=== PATIENT | male | born 1975 | race Caucasian/White ===

== ENCOUNTER 2023-08-22 05:44 | Inpatient (IN) | payer OTHER, SELFPAY ==
[2023-08-22] VITALS (18 sets, daily range): BP systolic 90–104; BP diastolic 59–78; PULSE 86–132; RESP 16–26; TEMP 36.4–37.1; O2SAT 95–99; BMI 38.8; BMI 37.4
--- NOTE | 2023-08-22 05:51 | XR_ITS ---
The [address] [address] Patient Name: STEFFANY JOVEL MRN: [id number] date: 1975 Sex: M Assigned Patient Location: ER Current Patient Location: ER Accession/Order Number: [id number] Exam Date: 08/22/2023 06:00 Report Date: 08/22/2023 06:26 At the request of: VASQUEZ ARRIOLA Procedure: XR chest 1V EXAMINATION: XR chest 1V HISTORY: shortness of breath COMPARISON: XR chest 05/07/2017 FINDINGS: LUNGS: No significant pulmonary parenchymal abnormalities. VASCULATURE: No increased pulmonary vasculature. PLEURA: No pneumothorax, effusion, or pleural thickening. CARDIAC: No cardiomegaly or cardiac silhouette abnormality. MEDIASTINUM: No visible mass or adenopathy. BONES: No fracture or visible bone lesion. OTHER: Negative. XR/XR chest 1V IMPRESSION: 1. No acute cardiopulmonary process. Electronically authenticated by: SALINA AGUILERA Date: 08/22/2023 06:26
--- NOTE | 2023-08-22 05:55 | ED_ITS ---
HPI - General Adult General Chief complaint: Nausea/Vomiting/Diarrhea Stated complaint: FLU TYPE ISSUES Time Seen by Provider: 08/22/23 05:45 Source: patient Mode of arrival: walk-in Limitations: no limitations History of Present Illness HPI narrative: 48-year-old male to the emergency department with chief complaint of diarrhea and vomiting. Patient reports that on he began to experience malaise, fatigue, chills, nausea. The next day he began to experience episodes of vomiting and diarrhea. He reports greater than ten episodes of diarrhea every day this weekend. He reports when he tries to drink anything it comes immediately back up. He is sipping fluids but not able to keep much down. He reports crampy abdominal pain relieved with diarrhea. Patient reports he feels very fatigued this morning. He denies any chest pain or shortness of breath. Related Data Home Medications Medication Instructions Recorded Confirmed atorvastatin 20 mg tablet 20 mg PO DAILY 08/22/23 08/22/23 azilsartan medoxomil 40 mg tablet 40 mg PO DAILY 08/22/23 08/22/23 (Edarbi) celecoxib 200 mg capsule 200 mg PO BID 08/22/23 08/22/23 fenofibrate 160 mg tablet 160 mg PO DAILY 08/22/23 08/22/23 metoprolol succinate 50 mg 50 mg PO DAILY 08/22/23 08/22/23 tablet,extended release 24 hr omeprazole 20 mg capsule,delayed 20 mg PO DAILY 08/22/23 08/22/23 release oxybutynin chloride 5 mg tablet 5 mg PO DAILY 08/22/23 08/22/23 Allergies Allergy/AdvReac Type Severity Reaction Status Date / Time No Known Drug Allergies Allergy Verified 08/22/23 05:50 Review of Systems ROS Status of ROS 10 or more systems reviewed and unremark able except as noted in history and below Exam Narrative Exam Narrative: VITALS: I have reviewed the triage vital signs. GENERAL: Well developed, well appearing adult male in no acute distress. NEURO: Alert and oriented. Moves all extremities. Face is symmetric and expre ssive. EYES: PERRL. No scleral icterus or conjunctival injection. No discharge. HENT: Normocephalic, atraumatic. Hearing is grossly intact. Nares grossly patent and without discharge. Mucous membranes moist. NECK: No JVD. Patient moves neck without restriction. CARDIO: Rhythm regular. Normal rate. No murmur, rub, or gallop. Pulses equal bilaterally in the upper and lower extremity. No lower extremity edema. PULM: Lungs clear to auscultation in all solorio. No wheezes, rales, or rhonchi. No conversational dyspnea. No splinting, stridor, or accessory muscle use. GI/: Abdomen is soft and non-tender. Normoactive bowel sounds. EXTREMITIES: Symmetric muscle bulk. No joint swelling. No clubbing, cyanosis, or deformity. SKIN: Warm and dry. Normal turgor. No rash or lesions appreciated. PSYCH: Mood, affect, and interaction is appropriate to the setting. Constitutional Vital Signs, click to edit/add: Last Vital Signs Temp 97.7 F 08/22/23 05:46 Pulse 132 H 08/22/23 05:46 Resp 26 H 08/22/23 05:46 BP 92/78 08/22/23 05:46 Pulse Ox 96 08/22/23 05:46 O2 Del Method Room Air 08/22/23 05:46 Course Vital Signs Vital signs: Vital Signs Temperature 97.7 F 08/22/23 05:46 Pulse Rate 132 H 08/22/23 05:46 Respiratory Rate 26 H 08/22/23 05:46 Blood Pressure 92/78 08/22/23 05:46 Pulse Oximetry 96 08/22/23 05:46 Oxygen Delivery Method Room Air 08/22/23 05:46 Temperature 97.7 F 08/22/23 05:46 Pulse Rate 132 H 08/22/23 05:46 Respiratory Rate 26 H 08/22/23 05:46 Blood Pressure 92/78 08/22/23 05:46 Pulse Oximetry 96 08/22/23 05:46 Oxygen Delivery Method Room Air 08/22/23 05:46 Medical Decision Making [facility] Narrative Medical decision making narrative: 48-year-old male to the emergency department complaining of diarrhea and vomiting. Tachycardic and soft pressure. The patient is afebrile. Abdominal examination is benign. Fluids, Bentyl, Zofran ordered for symptom control. Basic labs are ordered. Patient agrees with this plan. CBC is without significant abnormalities. Chemistry with significantly elevated creatinine representing acute kidney injury for this patient. He has a metabolic acidosis. He has a mild hyperkalemia without EKG changes. CT scan is ordered to rule out obstructive uropathy. 2 L of fluids were ordered for the patient. Care was signed out to Dr. Lara. Medical Records Medical records reviewed: Yes I reviewed the patient's medical records Lab Data Lab results reviewed: Yes I reviewed the patient's lab results Labs: Lab Results 08/22/23 Range/Units 05:57 WBC 10.2 (4.0-11.0) 10^3/uL RBC 5.20 (4.70-6.10) 10^6/uL Hgb 16.2 (14.0-18.0) g/dL Hct 49.9 (42.0-54.0) % MCV 96.0 H (80.0-94.0) fL MCH 31.2 (25.9-34.0) pg MCHC 32.5 (29.9-35.2) g/dL RDW 13.7 (11.0-15.0) % Plt Count 367 (150-450) 10^3/uL MPV 9.5 (9.5-13.5) fL Neut % (Auto) 66.2 (43.0-75.0) % Lymph % (Auto) 18.8 L (20.5-60.0) % [place] % (Auto) 13.2 H (1.7-12.0) % Eos % (Auto) 1.2 (0.9-7.0) % Baso % (Auto) 0.2 (0.2-2.0) % Neut # (Auto) 6.7 H (1.4-6.5) 10^3/uL Lymph # (Auto) 1.9 (1.2-3.8) 10^3/uL [place] # (Auto) 1.3 H (0.3-0.8) 10^3/uL Eos # (Auto) 0.1 (0.0-0.7) 10^3/uL Baso # (Auto) 0.0 (0.0-0.1) 10^3/uL Abs Immat Gran (auto) 0.04 H (0.00-0.03) 10^3/uL Imm/Tot Granulo (auto) 0.4 (0.0-0.5) % Sodium 137 (136-145) mmol/L Potassium 5.8 H (3.5-5.1) mmol/L Chloride 103 (98-107) mmol/L Carbon Dioxide 15.0 L (21.0-32.0) mmol/L Anion Gap 24.8 BUN 66.0 H (7.0-18.0) mg/dL Creatinine 4.23 H (0.70-1.30) mg/dL Est GFR ( Amer) 18 L (>=60) Est GFR (Non-Af Amer) 15 L (>=60) BUN/Creatinine Ratio 15.6 Glucose 144 H (74-106) mg/dL Calcium 9.2 (8.5-10.1) mg/dL Total Bilirubin 0.6 (0.2-1.0) mg/dL AST 25 (15-37) U/L ALT 38 (16-63) U/L Alkaline Phosphatase 49 (46-116) U/L Total Protein 8.7 H (6.4-8.2) g/dL Albumin 4.3 (3.4-5.0) g/dL Globulin 4.4 g/dL Albumin/Globulin Ratio 1.0 Lipase 78.0 H (16.0-77.0) U/L ECG Data Attestation: I personally reviewed and interpreted this ECG as follows: (ST@117. No STEMI. Short QTC. ) Critical Care Time Critical Care Time Critical Care Time: Yes Total Critical Care Time: 32 Attestation: Critical Care Procedure Note Authorized and Performed by: Naresh David DO Total critical care time: 32 min Due to a high probability of clinically significant, life threatening deterioration, the patient required my highest level of preparedness to intervene emergently and I personally spent this critical care time directly and personally managing the patient. This critical care time included obtaining a history; examining the patient; pulse oximetry; ordering and review of studies; arranging urgent treatment with development of a management plan; evaluation of patient's response to treatment; frequent reassessment; and, discussions with other providers. This critical care time was performed to assess and manage the high probability of imminent, life-threatening deterioration that could result in multi-organ failure. It was exclusive of separately billable procedures and treating other patients and teaching time. Please see MDM section and the rest of the note for further information on patient assessment and treatment. Discharge Plan Discharge Chief Complaint: Nausea/Vomiting/Diarrhea Clinical Impression: Acute renal failure, Gastroenteritis Patient Disposition: Still a Patient Prescriptions / Home Meds: No Action atorvastatin 20 mg tablet 20 mg PO DAILY Edarbi 40 mg tablet 40 mg PO DAILY celecoxib 200 mg capsule 200 mg PO BID fenofibrate 160 mg tablet 160 mg PO DAILY metoprolol succinate 50 mg tablet extended release 24 hr 50 mg PO DAILY oxybutynin chloride 5 mg tablet 5 mg PO DAILY omeprazole 20 mg capsule,delayed release(DR/EC) 20 mg PO DAILY Referrals: OSMAR MANCINI [Primary Care Provider] - 1 week
--- NOTE | 2023-08-22 05:58 | ECG_ITS ---
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
[2023-08-22 06:01] LABS: Basophils Percent Auto 0.2 % (0.2-2.0); Eosinophils Absolute Auto 0.1 10^3/uL (0.0-0.7); Eosinophils Percent Auto 1.2 % (0.9-7.0); Hematocrit 49.9 % (42.0-54.0); Hemoglobin 16.2 g/dL (14.0-18.0); Immature Granulocytes Abs Auto 0.04 10^3/uL (0.00-0.03); Immature Granulocytes Pct Auto 0.4 % (0.0-0.5); Lymphocytes Absolute Auto 1.9 10^3/uL (1.2-3.8); Lymphocytes Percent Auto 18.8 % (20.5-60.0); Mean Corpuscular HGB Conc 32.5 g/dL (29.9-35.2); Mean Corpuscular Hemoglobin 31.2 pg (25.9-34.0); Mean Platelet Volume 9.5 fL (9.5-13.5); Monocytes Absolute Auto 1.3 10^3/uL (0.3-0.8); Monocytes Percent Auto 13.2 % (1.7-12.0); Neutrophils Absolute Auto 6.7 10^3/uL (1.4-6.5); Neutrophils Percent Auto 66.2 % (43.0-75.0); Platelet Count 367 10^3/uL (150-450); Red Cell Distribution Width 13.7 % (11.0-15.0); White Blood Count 10.2 10^3/uL (4.0-11.0)
[2023-08-22 06:18] LABS: Alanine Aminotransferase 38 U/L (16-63); Albumin Level 4.3 g/dL (3.4-5.0); Alkaline Phosphatase 49 U/L (46-116); Anion Gap 24.8; Aspartate Amino Transferase 25 U/L (15-37); BUN Creatinine Ratio 15.6; Bilirubin Total 0.6 mg/dL (0.2-1.0); Calcium 9.2 mg/dL (8.5-10.1); Chloride 103 mmol/L (98-107); Estimated GFR (African America 18 (>=60); Estimated GFR (Non-African Ame 15 (>=60); Globulin 4.4 g/dL; Glucose 144 mg/dL (74-106); Potassium 5.8 mmol/L (3.5-5.1); Sodium 137 mmol/L (136-145); Total Protein 8.7 g/dL (6.4-8.2)
--- NOTE | 2023-08-22 06:26 | CT_ITS ---
[address] [address] Patient Name: STEFFANY JOVEL MRN: [id number] date: 1975 Sex: M Assigned Patient Location: ED.MAIN Current Patient Location: ED.MAIN Accession/Order Number: [id number] Exam Date: 08/22/2023 06:40 Report Date: 08/22/2023 07:06 At the request of: VASQUEZ ARRIOLA Procedure: CT abdomen pelvis wo con EXAMINATION: CT abdomen pelvis wo con HISTORY: abd pain , diarrhea, vomiting, shortness of breath COMPARISON: No relevant comparison available. TECHNIQUE: Axial, Coronal, and Sagittal images were obtained without and/or with IV contrast as indicated by examination type. Dose reduction techniques were achieved by using automated exposure control and/or adjustment of mA and/or kV according to patient size and/or use of iterative reconstruction technique. FINDINGS: LUNG BASES: No visible pulmonary or pleural disease. LIVER: No enlargement, atrophy, suspicious density, or significant focal lesion. BILIARY: 1.7 cm stone within noninflamed gallbladder. PANCREAS: No lesion, fluid collection, or abnormal duct dilatation. SPLEEN: No enlargement or focal lesion. ADRENALS: No mass or enlargement. KIDNEYS: 4 mm nonobstructing stone within right kidney inferior pole. BOWEL/MESENTERY: No visible mass, obstruction, or bowel wall thickening. Normal appendix. A few small diverticula involving the distal colon without inflammatory changes. AORTA/VASCULAR: No aneurysm or dissection. RETROPERITONEUM: No mass or adenopathy. LYMPH NODES: No adenopathy. URINARY BLADDER: Completely empty. No visible focal wall thickening, lesion, or calculus. PELVIC ORGANS: No visible mass. Pelvic organs appropriate for patient age. ABDOMINAL WALL: No mass or hernia. 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 OTHER: Negative. CT/CT abdomen pelvis wo con IMPRESSION: 1. No acute or suspicious findings to account for patient's symptoms. 2. Cholelithiasis. 3. Nonobstructing right nephrolithiasis. 4. Mild colonic diverticulosis. 5. Osteonecrosis of right femoral head. No prior studies for comparison. Electronically authenticated by: SALINA AGUILERA Date: 08/22/2023 07:06
[2023-08-22] MEDS: ONDANSETRON PF 4 MG/2 ML VIAL IV (06:29)
[2023-08-22] MEDS: DICYCLOMINE HCL 20 MG/2 ML VIAL IM (06:29)
[2023-08-22] MEDS: 0.9 % SODIUM CHLORIDE 1,000 ML 999 ML IV (06:29)
[2023-08-22 06:43] LABS: Magnesium 1.5 mg/dL (1.8-2.4); Phosphorus 3.3 mg/dL (2.6-4.7)
[2023-08-22] MEDS: LACTATED RINGER'S SOLUTION 1,000 ML 1000 ML IV (07:17)
[2023-08-22 07:34] LABS: Adenovirus NOT DETECTED (NOT DETECTE); Bordetella parapertussis NOT DETECTED (NOT DETECTE); Coronavirus 229E NOT DETECTED (NOT DETECTE); Coronavirus HKU1 NOT DETECTED (NOT DETECTE); Coronavirus NL63 NOT DETECTED (NOT DETECTE); Coronavirus OC43 NOT DETECTED (NOT DETECTE); Human Metapneumovirus NOT DETECTED (NOT DETECTE); Influenza A NOT DETECTED (NOT DETECTE); Influenza B NOT DETECTED (NOT DETECTE); Mycoplasma pneumoniae NOT DETECTED (NOT DETECTE); Parainfluenza Virus 1 NOT DETECTED (NOT DETECTE); Parainfluenza Virus 2 NOT DETECTED (NOT DETECTE); Parainfluenza Virus 3 NOT DETECTED (NOT DETECTE); Parainfluenza Virus 4 NOT DETECTED (NOT DETECTE); Respiratory Syncytial Virus NOT DETECTED (NOT DETECTE); SARS-CoV-2 NOT DETECTED (NOT DETECTE)
[2023-08-22 08:25] LABS: Human Rhinovirus/Enterovirus DETECTED (NOT DETECTE)
[2023-08-22 08:26] LABS: Bilirubin Urine SMALL (NEGATIVE); Blood Urine NEGATIVE (NEGATIVE); Clarity Urine CLEAR (CLEAR); Color Urine DK. ORANGE (YELLOW); Glucose Urine UA NEGATIVE (NEGATIVE); Ketones Urine 15 mg/dL (NEGATIVE); Leukocyte Esterase Urine NEGATIVE (NEGATIVE); Nitrite Urine NEGATIVE (NEGATIVE); Protein Urine 100 mg/dL (NEG/TRACE); Specific Gravity Urine >=1.030 (1.005-1.025); Urobilinogen Urine 0.2 EU/dL (0.2-1.0)
[2023-08-22 08:57] LABS: Bacteria Urine MODERATE #/HPF (NONE SEEN); Mucus Urine NONE SEEN (NONE SEEN); RBC Urine NONE SEEN #/HPF (0-2)
[2023-08-22 08:58] LABS: Calcium Oxalate Crystals Urine MODERATE; Crystals Seen? Seen #/HPF (None Seen); Squamous Epithelial Cell Urine MODERATE #/LPF (NONE/RARE); Uric Acid Crystals Urine MODERATE
[2023-08-22 08:59] LABS: Cast Seen? SEEN #/LPF (NONE SEEN); Hyaline Casts Urine MANY
[2023-08-22 09:00] LABS: Anion Gap 15.5; BUN Creatinine Ratio 17.6; Calcium 8.2 mg/dL (8.5-10.1); Carbon Dioxide 22.4 mmol/L (21.0-32.0); Chloride 106 mmol/L (98-107); Estimated GFR (African America 22 (>=60); Estimated GFR (Non-African Ame 18 (>=60); Glucose 110 mg/dL (74-106); Potassium 5.9 mmol/L (3.5-5.1); Sodium 138 mmol/L (136-145)
[2023-08-22 09:00] LABS: WBC Urine 0-2 #/HPF (NONE SEEN)
--- NOTE | 2023-08-22 09:09 | ED.GENADUL1 ---
HPI - General Adult General Chief complaint: Nausea/Vomiting/Diarrhea Stated complaint: FLU TYPE ISSUES Time Seen by Provider: 08/22/23 05:45 Source: patient Mode of arrival: walk-in Limitations: no limitations History of Present Illness HPI narrative: The patient was initially seen by Dr. David and signed out to me after discussing the case with him thoroughly. Please see his full history and physical. Related Data Home Medications Medication Instructions Recorded Confirmed atorvastatin 20 mg tablet 20 mg PO DAILY 08/22/23 08/22/23 azilsartan medoxomil 40 mg tablet 40 mg PO DAILY 08/22/23 08/22/23 (Edarbi) celecoxib 200 mg capsule 200 mg PO BID 08/22/23 08/22/23 fenofibrate 160 mg tablet 160 mg PO DAILY 08/22/23 08/22/23 metoprolol succinate 50 mg 50 mg PO DAILY 08/22/23 08/22/23 tablet,extended release 24 hr omeprazole 20 mg capsule,delayed 20 mg PO DAILY 08/22/23 08/22/23 release oxybutynin chloride 5 mg tablet 5 mg PO DAILY 08/22/23 08/22/23 Allergies Allergy/AdvReac Type Severity Reaction Status Date / Time No Known Drug Allergies Allergy Verified 08/22/23 05:50 Exam Constitutional Vital Signs, click to edit/add: Last Vital Signs Temp 97.7 F 08/22/23 05:46 Pulse 112 H 08/22/23 06:38 Resp 20 08/22/23 06:38 BP 90/70 08/22/23 06:38 Pulse Ox 99 08/22/23 06:38 O2 Del Method Room Air 08/22/23 05:46 Course Vital Signs Vital signs: Vital Signs Temperature 97.7 F 08/22/23 05:46 Pulse Rate 132 H 08/22/23 05:46 Respiratory Rate 26 H 08/22/23 05:46 Blood Pressure 92/78 08/22/23 05:46 Pulse Oximetry 96 08/22/23 05:46 Oxygen Delivery Method Room Air 08/22/23 05:46 Temperature 97.7 F 08/22/23 05:46 Pulse Rate 112 H 08/22/23 06:38 Respiratory Rate 20 08/22/23 06:38 Blood Pressure 90/70 08/22/23 06:38 Pulse Oximetry 99 08/22/23 06:38 Oxygen Delivery Method Room Air 08/22/23 05:46 Medical Decision Making MDM Narrative Medical decision making narrative: The patient was found to be significantly dehydrated and hypokalemic. He was given IV fluids and his creatinine is coming down. He was given D50 and insulin for the persistent hyperkalemia. He is being admitted. Findings are discussed with the patient. Differential Diagnosis Differential Diagnosis: Diarrhea, dehydration, acute kidney injury Lab Data Lab results reviewed: Yes I reviewed the patient's lab results Labs: Lab Results 08/22/23 08/22/23 08/22/23 Range/Units 05:57 07:08 07:49 WBC 10.2 (4.0-11.0) 10^3/uL RBC 5.20 (4.70-6.10) 10^6/uL Hgb 16.2 (14.0-18.0) g/dL Hct 49.9 (42.0-54.0) % MCV 96.0 H (80.0-94.0) fL MCH 31.2 (25.9-34.0) pg MCHC 32.5 (29.9-35.2) g/dL RDW 13.7 (11.0-15.0) % Plt Count 367 (150-450) 10^3/uL MPV 9.5 (9.5-13.5) fL Neut % (Auto) 66.2 (43.0-75.0) % Lymph % (Auto) 18.8 L (20.5-60.0) % [place] % (Auto) 13.2 H (1.7-12.0) % Eos % (Auto) 1.2 (0.9-7.0) % Baso % (Auto) 0.2 (0.2-2.0) % Neut # (Auto) 6.7 H (1.4-6.5) 10^3/uL Lymph # (Auto) 1.9 (1.2-3.8) 10^3/uL [place] # (Auto) 1.3 H (0.3-0.8) 10^3/uL Eos # (Auto) 0.1 (0.0-0.7) 10^3/uL Baso # (Auto) 0.0 (0.0-0.1) 10^3/uL Abs Immat Gran (auto) 0.04 H (0.00-0.03) 10^3/uL Imm/Tot Granulo (auto) 0.4 (0.0-0.5) % Sodium 137 (136-145) mmol/L Potassium 5.8 H (3.5-5.1) mmol/L Chloride 103 (98-107) mmol/L Carbon Dioxide 15.0 L (21.0-32.0) mmol/L Anion Gap 24.8 BUN 66.0 H (7.0-18.0) mg/dL Creatinine 4.23 H (0.70-1.30) mg/dL Est GFR ( Amer) 18 L (>=60) Est GFR (Non-Af Amer) 15 L (>=60) BUN/Creatinine Ratio 15.6 Glucose 144 H (74-106) mg/dL Calcium 9.2 (8.5-10.1) mg/dL Phosphorus 3.3 (2.6-4.7) mg/dL Magnesium 1.5 L (1.8-2.4) mg/dL Total Bilirubin 0.6 (0.2-1.0) mg/dL AST 25 (15-37) U/L ALT 38 (16-63) U/L Alkaline Phosphatase 49 (46-116) U/L Total Protein 8.7 H (6.4-8.2) g/dL Albumin 4.3 (3.4-5.0) g/dL Globulin 4.4 g/dL Albumin/Globulin Ratio 1.0 Lipase 78.0 H (16.0-77.0) U/L Urine Color Dk. orange (YELLOW) Urine Clarity Clear (CLEAR) Urine pH 5.0 (5.0-9.0) Ur Specific [place] >=1.030 A (1.005-1.025) Urine Protein 100 A (NEG/TRACE) mg/dL Urine Glucose (UA) Negative (NEGATIVE) mg/dL Urine Ketones 15 A (NEGATIVE) mg/dL Urine Occult Blood Negative (NEGATIVE) Urine Nitrite Negative (NEGATIVE) Urine Bilirubin Small A (NEGATIVE) Urine Urobilinogen 0.2 (0.2-1.0) EU/dL Ur Leukocyte Esterase Negative (NEGATIVE) Urine RBC None seen (0-2) #/HPF Urine WBC 0-2 A (NONE SEEN) #/HPF Ur Squamous Epith Cells Moderate A (NONE/RARE) #/LPF Urine Crystals Seen A (None Seen) #/HPF Calcium Oxalate Crystal Moderate Uric Acid Crystals Moderate Urine Bacteria Moderate A (NONE SEEN) #/HPF Urine Casts Seen A (NONE SEEN) #/LPF Hyaline Casts Many Urine Mucus None seen (NONE SEEN) Adenovirus (PCR) Not detected (NOT DETECTE) C. pneumoniae DNA (PCR) Not detected (NOT DETECTE) Coronavirus Type OC43 Not detected (NOT DETECTE) Coronavirus Type HKU1 Not detected (NOT DETECTE) Coronavirus Type 229E Not detected (NOT DETECTE) Coronavirus Type NL63 Not detected (NOT DETECTE) Human Metapneumovir PCR Not detected (NOT DETECTE) M. pneumoniae (PCR) Not detected (NOT DETECTE) Parainfluenza PCR Not detected (NOT DETECTE) Parainfluenza 2 (PCR) Not detected (NOT DETECTE) Parainfluenza 3 (PCR) Not detected (NOT DETECTE) Parainfluenza 4 (PCR) Not detected (NOT DETECTE) RSV (RT-PCR) Not detected (NOT DETECTE) Entero/Rhino (PCR) Detected A (NOT DETECTE) SARS-CoV-2 (PCR) Not detected (NOT DETECTE) Bordetella pertussis (PCR) Not detected (NOT DETECTE) B parapertussis DNA PCR Not detected (NOT DETECTE) Influenza Type A (PCR) Not detected (NOT DETECTE) Influenza Type B (PCR) Not detected (NOT DETECTE) 08/22/23 Range/Units 08:27 WBC (4.0-11.0) 10^3/uL RBC (4.70-6.10) 10^6/uL Hgb (14.0-18.0) g/dL Hct (42.0-54.0) % MCV (80.0-94.0) fL MCH (25.9-34.0) pg MCHC (29.9-35.2) g/dL RDW (11.0-15.0) % Plt Count (150-450) 10^3/uL MPV (9.5-13.5) fL Neut % (Auto) (43.0-75.0) % Lymph % (Auto) (20.5-60.0) % [place] % (Auto) (1.7-12.0) % Eos % (Auto) (0.9-7.0) % Baso % (Auto) (0.2-2.0) % Neut # (Auto) (1.4-6.5) 10^3/uL Lymph # (Auto) (1.2-3.8) 10^3/uL [place] # (Auto) (0.3-0.8) 10^3/uL Eos # (Auto) (0.0-0.7) 10^3/uL Baso # (Auto) (0.0-0.1) 10^3/uL Abs Immat Gran (auto) (0.00-0.03) 10^3/uL Imm/Tot Granulo (auto) (0.0-0.5) % Sodium 138 (136-145) mmol/L Potassium 5.9 H (3.5-5.1) mmol/L Chloride 106 (98-107) mmol/L Carbon Dioxide 22.4 (21.0-32.0) mmol/L Anion Gap 15.5 BUN 64.0 H (7.0-18.0) mg/dL Creatinine 3.64 H (0.70-1.30) mg/dL Est GFR ( Amer) 22 L (>=60) Est GFR (Non-Af Amer) 18 L (>=60) BUN/Creatinine Ratio 17.6 Glucose 110 H (74-106) mg/dL Calcium 8.2 L (8.5-10.1) mg/dL Phosphorus (2.6-4.7) mg/dL Magnesium (1.8-2.4) mg/dL Total Bilirubin (0.2-1.0) mg/dL AST (15-37) U/L ALT (16-63) U/L Alkaline Phosphatase (46-116) U/L Total Protein (6.4-8.2) g/dL Albumin (3.4-5.0) g/dL Globulin g/dL Albumin/Globulin Ratio Lipase (16.0-77.0) U/L Urine Color (YELLOW) Urine Clarity (CLEAR) Urine pH (5.0-9.0) Ur Specific [place] (1.005-1.025) Urine Protein (NEG/TRACE) mg/dL Urine Glucose (UA) (NEGATIVE) mg/dL Urine Ketones (NEGATIVE) mg/dL Urine Occult Blood (NEGATIVE) Urine Nitrite (NEGATIVE) Urine Bilirubin (NEGATIVE) Urine Urobilinogen (0.2-1.0) EU/dL Ur Leukocyte Esterase (NEGATIVE) Urine RBC (0-2) #/HPF Urine WBC (NONE SEEN) #/HPF Ur Squamous Epith Cells (NONE/RARE) #/LPF Urine Crystals (None Seen) #/HPF Calcium Oxalate Crystal Uric Acid Crystals Urine Bacteria (NONE SEEN) #/HPF Urine Casts (NONE SEEN) #/LPF Hyaline Casts Urine Mucus (NONE SEEN) Adenovirus (PCR) (NOT DETECTE) C. pneumoniae DNA (PCR) (NOT DETECTE) Coronavirus Type OC43 (NOT DETECTE) Coronavirus Type HKU1 (NOT DETECTE) Coronavirus Type 229E (NOT DETECTE) Coronavirus Type NL63 (NOT DETECTE) Human Metapneumovir PCR (NOT DETECTE) M. pneumoniae (PCR) (NOT DETECTE) Parainfluenza PCR (NOT DETECTE) Parainfluenza 2 (PCR) (NOT DETECTE) Parainfluenza 3 (PCR) (NOT DETECTE) Parainfluenza 4 (PCR) (NOT DETECTE) RSV (RT-PCR) (NOT DETECTE) Entero/Rhino (PCR) (NOT DETECTE) SARS-CoV-2 (PCR) (NOT DETECTE) Bordetella pertussis (PCR) (NOT DETECTE) B parapertussis DNA PCR (NOT DETECTE) Influenza Type A (PCR) (NOT DETECTE) Influenza Type B (PCR) (NOT DETECTE) Imaging Data CT scan - abdomen: Radiologist's impression: ITS Impressions Chest X-Ray 08/22/23 05:51 IMPRESSION: 1. No acute cardiopulmonary process. Electronically authenticated by: SALINA AGUILERA Date: 08/22/2023 06:26 Abdomen/Pelvis CT 08/22/23 06:26 IMPRESSION: 1. No acute or suspicious findings to account for patient's symptoms. 2. Cholelithiasis. 3. Nonobstructing right nephrolithiasis. 4. Mild colonic diverticulosis. 5. Osteonecrosis of right femoral head. No prior studies for comparison. Electronically authenticated by: SALINA AGUILERA Date: 08/22/2023 07:06 Critical Care Time Critical Care Time Critical Care Time: Yes Total Critical Care Time: 40 Attestation: Due to the high probability of sudden and clinically significant deterioration in the patient's condition he/she required the highest level of my preparedness to intervene urgently I provided critical care time including documentation time, medication orders and management, reevaluation, vital sign assessment, ordering and reviewing of lab tests, ordering and reviewing of x-ray studies, and admission orders. Aggregate critical care time is 40 minutes including only time during which I was engaged in work directly related to his/her care and did not include time spent treating other patients simultaneously. Discharge Plan Discharge Chief Complaint: Nausea/Vomiting/Diarrhea Clinical Impression: Acute renal failure, Gastroenteritis, Hyperkalemia Patient Disposition: Admitted As Inpatient Time of Disposition Decision: 09:08 Condition: Good
[2023-08-22] MEDS: INSULIN REGULAR 300 UNITS/3 ML 10 UNIT IV (09:25)
[2023-08-22] MEDS: DEXTROSE 50 %-WATER 25 GM/50 ML SYRINGE IV (09:25)
[2023-08-22] MEDS: ENOXAPARIN SODIUM 30 MG/0.3 ML SYRINGE SUBQ (10:49)
[2023-08-22] MEDS: FENOFIBRATE 54 MG TABLET 162 MG PO (10:49)
[2023-08-22] MEDS: LACTATED RINGER'S SOLUTION 1,000 ML 125 ML IV ×2 (10:49→18:02)
--- NOTE | 2023-08-22 13:14 | P.HP_ITS ---
<Statement entered by Shaikh Aaron MD - 08/22/23 16:40> This documentation has been reviewed and approved. Patient seen and examined. Case discussed with Ruthy. Patient presents with nausea, vomiting and diarrhea - 3-4 days. Found to have severe MIK along with multiple electrolyte abnormalities. Patient admitted for IVF and monitor electrolytes, renal function. He also tested positive for rhinovirus. He reports sinus congestion and headache prior to his symptoms started. Exam: NAD, Obese CTA b/l, normal RR Normal HR, no murmurs NT, ND, BS+ve Assessment and Plan MIK Hyperkalemia HLD HTN Orthostatic hypotension Acute viral Gastroenteritis Cholelithiasis. -c/w IVF, Hold BP meds. Monitor UO, daily I/O. Recheck BMP. -Incidental finding of cholelithiasis - will need outpatient follow up GI panel sent. No sig pathology noted on CT ABD/PELVIS. HPI H&P: HPI History of Present Illness Chief complaint: FLU TYPE ISSUES Narrative: 08/22/23 4147 This is a 48-year-old male patient with a past medical history as outlined below including hyperlipidemia, hypertension, GERD, obesity, and borderline diabetes; who presented to the ED early this morning complaining of severe weakness, dehydration, and persistent vomiting and diarrhea. The patient reports onset of headache and diarrhea Tuesday evening (3 days ago), which he reports as very frequent with multiple episodes. On Tuesday the diarrhea started to improve and then resumed again Tuesday afternoon. On Tuesday evening the patient began to experience vomiting with episodes every 30 to 60 minutes. The patient was attempting to maintain his hydration, but he could not keep water down and presented to the ED early this morning for further evaluation. He denies any fevers or chills. He reports weakness, body aches, and oliguria prior to arrival in the ED. He denies any sick contacts. Workup in the ED revealed significant kidney injury (BUN 66, CR 4.23, GFR 15), hyperkalemia (5.8), and hyperglycemia (144). A chest x-ray was unremarkable and a CT of the abdomen showed no acute disease or etiology for the patient's symptoms. A respiratory panel was positive for rhinovirus, but the patient denies any URI symptoms. The patient is being admitted to the hospitalist service as an inpatient for acute kidney injury, dehydration, hyperkalemia, and associated hypotension. At the time of my exam the patient is resting comfortably on his bed on the medical floor. He just finished eating a breakfast of omelette and toast and was able to finish it all without further episodes of emesis. On further discussion of the patient's symptoms and when they started, it was noted that the patient took his first dose of Wegovy on 08/14/2023. He began to develop GI symptoms on 08/19/2023. Although this is a 5-day delay since initiation of this medication, after discussion with the pharmacist, it is highly possible that the Wegovy is responsible for his symptoms. As this medication is extended release and very long-acting it is likely that a 5-day lag for onset of adverse events i s reasonable to expect. Unfortunately, the patient took his second dose of Wegovy on 08/21/2023, just prior to presenting to the ED for further evaluation. If his symptoms are related to this medication he will likely have a recurrent episode next weekend. I discussed this with the patient and he verbalized understanding. Opioid HPI Opioid Management Most Recent Opioid Data: Last Pain Assessment 08/22/23 14:00 Last ORT Total Score 0 08/22/23 09:09 Last ORT Risk Category Low Risk 08/22/23 09:09 Review of Systems ROS Status of ROS 10 or more systems reviewed and unremark able except as noted in history and below [facility] Medical History (Updated 08/22/23 @ 13:52 by Ruthy Hartmann NP) GERD (gastroesophageal reflux disease) ?K21.9 - Gastro-esophageal reflux disease without esophagitis (ICD-10) OAB (overactive bladder) ?N32.81 - Overactive bladder (ICD-10) Hyperlipidemia ?E78.5 - Hyperlipidemia, unspecified (ICD-10) Prediabetes ?R73.03 - Prediabetes (ICD-10) HTN (hypertension) ?I10 - Essential (primary) hypertension (ICD-10) Cholelithiasis ?K80.20 - Calculus of gallbladder without cholecystitis without obstruction (ICD-10) Degenerative disc disease, lumbar ?M51.36 - Other intervertebral disc degeneration, lumbar region (ICD-10) Surgical History (Updated 08/22/23 @ 09:52 by Raegan Lopez) History of hip replacement ?Z96.649 - Presence of unspecified artificial hip joint (ICD-10) Family History (Updated 08/22/23 @ 09:55 by Raegan Lopez) Father Family history of CHF (congestive heart failure) Family history of COPD (chronic obstructive pulmonary disease) Family history of hypertension Family history of stroke Grandfather Family history of cancer Family history of hypertension Grandfather Family history of cancer Brother Family history of diabetes mellitus Family history of hypertension Social History (Updated 08/22/23 @ 09:54 by Raegan Lopez) Within the past year, how often did you have a drink containing alcohol: 2-4 times a month Within the past year, how many standard drinks containing alcohol did you have on a typical day: 1 or 2 Within the past year, how often did you have six or more drinks on one occasion: never Total score: 0 Score interpretation: A score less than 4 is consistent with normal alcohol consumption. Smoking status: Current every day smoker Do you use any of these nicotine containing products: vaping products Non-prescribed substance use: denies use Previous occupational history: [employer] Highest level of school completed/degree received: Associate degree: occupational, technical, vocational program Little interest or pleasure in doing things: not at all Feeling down, depressed, or hopeless: not at all Feel stressed/tense/nervous/anxious/difficulty sleeping: not at all Meds Home Medications and Allergies Home Medications Medication Instructions Recorded Confirmed Type Wegovy 0.3 mg subcut QWEEK 08/22/23 08/22/23 History atorvastatin 20 mg tablet 20 mg PO DAILY 08/22/23 08/22/23 History azilsartan medoxomil 40 mg tablet 40 mg PO DAILY 08/22/23 08/22/23 History (Edarbi) celecoxib 200 mg capsule 200 mg PO BID 08/22/23 08/22/23 History fenofibrate 160 mg tablet 160 mg PO DAILY 08/22/23 08/22/23 History metoprolol succinate 50 mg 50 mg PO DAILY 08/22/23 08/22/23 History tablet,extended release 24 hr omeprazole 20 mg capsule,delayed 20 mg PO DAILY 08/22/23 08/22/23 History release oxybutynin chloride 5 mg tablet 5 mg PO DAILY 08/22/23 08/22/23 History Allergies Allergy/AdvReac Type Severity Reaction Status Date / Time No Known Drug Allergies Allergy Verified 08/22/23 05:50 Exam Constitutional Vital Signs, click to edit/add: Last Vital Signs Temp 97.6 F 08/22/23 09:46 Pulse 100 H 08/22/23 11:53 Resp 16 08/22/23 09:46 BP 102/68 08/22/23 09:46 Pulse Ox 96 08/22/23 09:46 O2 Del Method Room Air 08/22/23 09:46 Common normals: no apparent distress, oriented x3, alert and well nourished General appearance: cooperative Orientation/consciousness: Yes awake HENMT Common normals: normocephalic, head/scalp atraumatic, hearing grossly normal bilaterally, external nose normal and moist oral mucous membranes Eye Common normals: PERRL, EOMs intact bilaterally, conjunctivae normal and no scleral icterus Alignment: alignment normal Eyelid: eyelids normal Chest Common normals: inspection of chest normal Chest: symmetrical chest wall rise Respiratory Common normals: normal respiratory effort, no retractions, no use of accessory muscles and clear to auscultation bilaterally Effort & inspection: able to speak in complete sentences Auscultation: diminished lung sounds (BLL) Cardio Common normals: no JVD, regular rate, regular rhythm, S1 normal heart sound, S2 normal heart sound, no gallops, no clicks, no murmurs, no rub and peripheral pulses 2+ throughout GI Common normals: Normal to inspection, nondistended, normoactive bowel sounds present, soft to palpation, non-tender, no hepatosplenomegaly, no masses and no bruits Bladder/kidney exam: bladder normal to palpation Back & Pelvis Common normals: thoracic and lumbar spine normal to inspection Extremity Common normals: normal capillary refill General: normal exam except as noted and edema (Tr bilat insteps); no clubbing and no cyanosis Neuro Jyoti Coma Scale: GCS not evaluated Common normals: oriented x3, CN's II-XII intact bilaterally, moves all extremities, no focal motor deficits and no sensory deficits noted Sensorium/orientation: awake and alert Speech: speech normal Motor exam: strength 5/5 throughout Psych Common normals: mental status grossly normal, thought process normal, affect normal and activity/motor behavior normal Results Labs Labs: Short CBC 08/22/23 Range/Units 05:57 WBC 10.2 (4.0-11.0) 10^3/uL Hgb 16.2 (14.0-18.0) g/dL Hct 49.9 (42.0-54.0) % Plt Count 367 (150-450) 10^3/uL BMP 08/22/23 08/22/23 05:57 08:27 Sodium 137 138 Potassium 5.8 H 5.9 H Chloride 103 106 Carbon Dioxide 15.0 L 22.4 BUN 66.0 H 64.0 H Creatinine 4.23 H 3.64 H Glucose 144 H 110 H Calcium 9.2 8.2 L Liver Function 08/22/23 Range/Units 05:57 Total Bilirubin 0.6 (0.2-1.0) mg/dL AST 25 (15-37) U/L ALT 38 (16-63) U/L Alkaline Phosphatase 49 (46-116) U/L Albumin 4.3 (3.4-5.0) g/dL Urine 08/22/23 Range/Units 07:49 Urine Color Dk. orange (YELLOW) Urine Clarity Clear (CLEAR) Urine pH 5.0 (5.0-9.0) Ur Specific [place] >=1.030 A (1.005-1.025) Urine Protein 100 A (NEG/TRACE) mg/dL Urine Glucose (UA) Negative (NEGATIVE) mg/dL Pulse Oximetry Attestation: I have reviewed the pertinent pulse oximetry results. ECG Interpretation: Sinus tachycardia Short QTc interval Abnormal ECG Compared to ECG from 05/15/2021 Sinus rhythm no longer present T wave abnormality no longer present Imaging CT scan - abdomen: Attestation: I have reviewed the pertinent imaging results. Radiologist's impression: IMPRESSION: 1. No acute or suspicious findings to account for patient's symptoms. 2. Cholelithiasis. 3. Nonobstructing right nephrolithiasis. 4. Mild colonic diverticulosis. 5. Osteonecrosis of right femoral head. No prior studies for comparison. Chest x-ray: Attestation: I have reviewed the pertinent imaging results. Radiologist's impression: IMPRESSION: 1. No acute cardiopulmonary process. Assessment and Plan Assessment and Plan (1) Acute renal failure: Assessment and Plan: Acute * Adm inpatient * Expect greater than 2 midnight stay for medically necessary hospital care * 2/2 dehydration from persistent N/V/D x 3 days - onset 08/19/23 * See below * 2 liter IVF boluses administered in the ED * Start LR at 125/hr * Hold all renal toxic meds including home Edarbi and Celebrex * No renal obstruction noted on CT abdomen imaging * CBC, CMP daily (2) Hyperkalemia: Assessment and Plan: Acute * Likely 2/2 MIK and severe dehydration * Insulin and D50 administered in the ED * No significant EKG changes * Tele monitoring * CMP daily (3) Dehydration: Assessment and Plan: Acute * 2/2 severe N/V/D * See MIK above * CMP daily (4) Nausea vomiting and diarrhea: Assessment and Plan: Acute * Suspect 2/2 new Wegovy administration * Possible adverse reaction from first Wegovy dose on 08/14/23, onset of sx on 08/19/23 * D/t long acting formulation, late onset (5 days) of SE is possible per pharmacy * 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 * Recurrent N/V/D may occur next weekend since pt administered a second dose * Possible viral gastroenteritis, but in absence of sick contacts or fever, this is less likely * GI panel - pending collection (5) Hypotension: Assessment and Plan: Acute * 2/2 hypovolemia/dehydration * Hold home metoprolol for now - resume when clinically indicated (6) Rhinovirus infection: Assessment and Plan: Acute * Incidental finding on Resp panel swab * No report of URI symptoms (7) GERD (gastroesophageal reflux disease): Assessment and Plan: Chronic * Continue home PPI (8) OAB (overactive bladder): Assessment and Plan: Chronic * Hold home oxybutynin for now d/t oliguria and need for accurate I&O monitoring * Likely resume at d/c (9) Hyperlipidemia: Assessment and Plan: Chronic * Hold home statin for now during acute illness/hospitalization - plan to resume at d/c * Continue home fibrate for now (10) Prediabetes: Assessment and Plan: Chronic * Hyperglycemia noted on labs in ED * Check A1C in AM - r/o full DM2 onset * Likely d/c Wegovy at discharge (initiated for weight loss) (11) HTN (hypertension): Assessment and Plan: Chronic * Hold home Edarbi 2/2 hypotension and MIK * Hold home metoprolol 2/2 hypotension - resume when clinically indicated (12) Degenerative disc disease, lumbar: Assessment and Plan: Chronic * Hold home Celebrex for now d/t MIK * Tylenol ES for pain
[2023-08-22 17:15] LABS: Anion Gap 13.6; BUN Creatinine Ratio 24.2; Calcium 8.3 mg/dL (8.5-10.1); Carbon Dioxide 21.5 mmol/L (21.0-32.0); Chloride 109 mmol/L (98-107); Estimated GFR (African America 37 (>=60); Estimated GFR (Non-African Ame 30 (>=60); Glucose 113 mg/dL (74-106); Potassium 4.1 mmol/L (3.5-5.1); Sodium 140 mmol/L (136-145)
[2023-08-22] MEDS: HEPARIN SODIUM (PORCINE) 5,000 UNIT/ML VIAL 7500 UNIT SUBQ (18:03)
[2023-08-22] MEDS: ACETAMINOPHEN 500 MG TABLET 1000 MG PO (18:04)
[2023-08-23] VITALS (21 sets, daily range): BP systolic 103–116; BP diastolic 67–76; PULSE 80–127; RESP 18; TEMP 36.6–36.8; O2SAT 96–98
[2023-08-23] MEDS: HEPARIN SODIUM (PORCINE) 5,000 UNIT/ML VIAL 7500 UNIT SUBQ ×3 (00:01→17:37)
[2023-08-23 00:09] LABS: Adenovirus F 40/41 NOT DETECTED (NOT DETECTE); Astrovirus NOT DETECTED (NOT DETECTE); Campylobacter NOT DETECTED (NOT DETECTE); Cryptosporidium NOT DETECTED (NOT DETECTE); Cyclospora cayetanensis NOT DETECTED (NOT DETECTE); Entamoeba histolytica NOT DETECTED (NOT DETECTE); Enteroaggregative E.coli NOT DETECTED (NOT DETECTE); Enteropathogenic E.coli NOT DETECTED (NOT DETECTE); Enterotoxigenic E. coli NOT DETECTED (NOT DETECTE); Giardia lamblia NOT DETECTED (NOT DETECTE); Norovirus GI/GII NOT DETECTED (NOT DETECTE); Plesiomonas shigelloides NOT DETECTED (NOT DETECTE); Rotavirus A NOT DETECTED (NOT DETECTE); Salmonella NOT DETECTED (NOT DETECTE); Sapovirus NOT DETECTED (NOT DETECTE); Shiga-like toxin-producing E.C NOT DETECTED (NOT DETECTE); Shigella/Enteroinvasive E.coli NOT DETECTED (NOT DETECTE); Vibrio NOT DETECTED (NOT DETECTE); Vibrio cholerae NOT DETECTED (NOT DETECTE); Yersinia enterocolitica NOT DETECTED (NOT DETECTE)
[2023-08-23] MEDS: LACTATED RINGER'S SOLUTION 1,000 ML 125 ML IV ×3 (02:06→19:28)
[2023-08-23] MEDS: ONDANSETRON PF 4 MG/2 ML VIAL IV (02:09)
[2023-08-23] MEDS: ACETAMINOPHEN 500 MG TABLET 1000 MG PO (02:09)
[2023-08-23 05:21] LABS: Basophils Percent Auto 0.3 % (0.2-2.0); Eosinophils Absolute Auto 0.2 10^3/uL (0.0-0.7); Eosinophils Percent Auto 2.5 % (0.9-7.0); Hematocrit 39.2 % (42.0-54.0); Immature Granulocytes Abs Auto 0.02 10^3/uL (0.00-0.03); Immature Granulocytes Pct Auto 0.3 % (0.0-0.5); Lymphocytes Absolute Auto 2.9 10^3/uL (1.2-3.8); Lymphocytes Percent Auto 46.7 % (20.5-60.0); Mean Corpuscular HGB Conc 33.2 g/dL (29.9-35.2); Mean Corpuscular Hemoglobin 31.3 pg (25.9-34.0); Mean Corpuscular Volume 94.5 fL (80.0-94.0); Mean Platelet Volume 9.9 fL (9.5-13.5); Monocytes Absolute Auto 0.7 10^3/uL (0.3-0.8); Monocytes Percent Auto 11.4 % (1.7-12.0); Neutrophils Absolute Auto 2.4 10^3/uL (1.4-6.5); Neutrophils Percent Auto 38.8 % (43.0-75.0); Platelet Count 245 10^3/uL (150-450); Red Blood Count 4.15 10^6/uL (4.70-6.10); Red Cell Distribution Width 13.6 % (11.0-15.0); White Blood Count 6.1 10^3/uL (4.0-11.0)
[2023-08-23 05:38] LABS: Alanine Aminotransferase 27 U/L (16-63); Albumin Globulin Ratio 0.9; Albumin Level 3.2 g/dL (3.4-5.0); Alkaline Phosphatase 43 U/L (46-116); Anion Gap 14.3; Aspartate Amino Transferase 18 U/L (15-37); Bilirubin Total 0.3 mg/dL (0.2-1.0); Calcium 8.7 mg/dL (8.5-10.1); Carbon Dioxide 20.8 mmol/L (21.0-32.0); Chloride 107 mmol/L (98-107); Estimated GFR (African America >60 (>=60); Estimated GFR (Non-African Ame 51 (>=60); Globulin 3.6 g/dL; Glucose 113 mg/dL (74-106); Potassium 4.1 mmol/L (3.5-5.1); Sodium 138 mmol/L (136-145); Total Protein 6.8 g/dL (6.4-8.2)
[2023-08-23 05:43] LABS: Estimated Average Glucose 134 mg/dL; Glycohemoglobin A1C 6.3 % (4.5-6.2)
[2023-08-23] MEDS: MAGNESIUM SULFATE IN WATER 2 GM/50 ML PREMIX IV (08:38)
[2023-08-23] MEDS: FENOFIBRATE 54 MG TABLET 162 MG PO (08:38)
[2023-08-23] MEDS: HYOSCYAMINE SULFATE 0.125 MG TAB.SUBL SL ×3 (08:38→17:37)
[2023-08-23] MEDS: OMEPRAZOLE 20 MG CAPSULE.DR PO (08:39)
[2023-08-23] MEDS: LOPERAMIDE HCL 2 MG CAPSULE PO ×2 (08:39→11:30)
--- NOTE | 2023-08-23 09:30 | CM.NOTE ---
Rounds made with Dr. Walker, pt had episode of nausea and abdominal discomfort through the night. No discharge today, possible discharge tomorrow.
--- NOTE | 2023-08-23 09:51 | P.PN_ITS ---
<Statement entered by Shaikh Aaron MD - 08/23/23 13:21> This documentation has been reviewed and approved. Patient seen and examined. Case d/w Ruthy. No overnight events Patient doing well. Tolerating PO diet. Denies N/V but still has watery diarrhea and had multiple BM overnight. Exam: NAD, laying in bed CTA b/l, normal RR Normal HR, no murmur NT,ND, BS+ve Assessment/Treatment MIK Hyperkalemia HTN Orthostatic hypotension Rhinovirus infection Nausea/vomiting Dehydration Prediabetes Renal function slowly improving. Not at baseline. C/w IVF, monitor UO, Cr. Hyp erkalemia resolved. Loperamide added for diarrhea to be used as needed. Possible d/c if renal function continues to improve. Progress Note: Subjective Subjective Interval history: 08/23/23 0855 The patient is resting in bed at the time of my exam. He reports feeling a little rough because he was up with diarrhea hourly all night long. A GI panel resulted negative for all pathogens overnight. We have initiated the patient on loperamide for diarrhea and Levsin for bowel colic associated with diarrhea. His renal function is improving but not yet back to baseline. Due to the patient's second dose of Wegovy taken on Tuesday, we expect his GI symptoms may persist. We will keep him in the hospital for another night for further IV fluids and monitoring of his renal function. He denies any further nausea and vomiting since arrival on the medical floor. Exam Constitutional Vital Signs, click to edit/add: Last Vital Signs Temp 98.1 F 08/23/23 08:00 Pulse 97 H 08/23/23 08:03 Resp 18 08/23/23 08:00 BP 103/67 08/23/23 08:00 Pulse Ox 97 08/23/23 08:00 O2 Del Method Room Air 08/23/23 08:00 Common normals: no apparent distress, oriented x3 and alert General appearance: cooperative Orientation/consciousness: Yes awake HENWA Common normals: normocephalic, head/scalp atraumatic and hearing grossly normal bilaterally Eye Common normals: PERRL, EOMs intact bilaterally, conjunctivae normal and no scleral icterus General eye: normal appearance of both eyes Chest Common normals: inspection of chest normal Chest: symmetrical chest wall rise Respiratory Common normals: normal respiratory effort, no use of accessory muscles and clear to auscultation bilaterally Effort & inspection: able to speak in complete sentences Cardio Common normals: regular rate, regular rhythm, S1 normal heart sound, S2 normal heart sound, no murmurs and peripheral pulses 2+ throughout GI Common normals: Normal to inspection, nondistended, normoactive bowel sounds present, soft to palpation and no hepatosplenomegaly Palpation: tender (Mild LLQ, non-focal); no guarding, not rigid and no rebound tenderness present Bladder/kidney exam: bladder normal to palpation Extremity Common normals: normal to inspection and no calf tenderness General: no clubbing, no cyanosis and no edema Neuro Common normals: CN's II-XII intact bilaterally, moves all extremities, no focal motor deficits and no sensory deficits noted Psych Common normals: mental status grossly normal Progress Note: Objective Labs Labs: Short CBC 08/23/23 Range/Units 04:22 WBC 6.1 (4.0-11.0) 10^3/uL Hgb 13.0 L (14.0-18.0) g/dL Hct 39.2 L (42.0-54.0) % Plt Count 245 (150-450) 10^3/uL BMP 08/22/23 08/23/23 17:04 04:22 Sodium 140 138 Potassium 4.1 4.1 Chloride 109 H 107 Carbon Dioxide 21.5 20.8 L BUN 56.0 H 38.0 H Creatinine 2.31 H 1.46 H Glucose 113 H 113 H Calcium 8.3 L 8.7 Liver Function 08/23/23 Range/Units 04:22 Total Bilirubin 0.3 (0.2-1.0) mg/dL AST 18 (15-37) U/L ALT 27 (16-63) U/L Alkaline Phosphatase 43 L (46-116) U/L Albumin 3.2 L (3.4-5.0) g/dL Progress Note: A&P Assessment and Plan (1) Acute renal failure: Assessment and Plan: Acute * Improving - not yet back to baseline * 2/2 dehydration from persistent N/V/D - onset 08/19/23 * Continue LR at 125/hr * Hold all renal toxic meds including home Edarbi and Celebrex * No renal obstruction noted on CT abdomen imaging * Strict I&O * CBC, CMP daily (2) Hyperkalemia: Assessment and Plan: Acute * Resolved - K+ 4.1 today * Pt remains at risk for recurrent hypokalemia d/t GI losses from diarrhea * Continue tele monitoring * CMP daily (3) Hypomagnesemia: Assessment and Plan: Acute * Mag 1.5 in ED * Give Mag Sulfate IVPB 2gm now * Repeat mag level in AM (4) Dehydration: Assessment and Plan: Acute * Persistent w/ pre-renal azotemia * 2/2 severe N/V/D * Continue LR as above * CMP daily (5) Nausea vomiting and diarrhea: Assessment and Plan: Acute * Continue to suspect 2/2 new Wegovy administration * Possible adverse reaction from first Wegovy dose on 08/14/23, onset of sx on 08/19/23 * D/t long acting formulation, late onset (5 days) of SE is possible per pharmacy * 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 FU w/ PCP * Possible viral gastroenteritis - R/O * GI panel - Neg for all pathogens on panel including C-diff * Loperamide for diarrhea, Levsin for bowel colic associated w/ diarrhea (6) Hypotension: Assessment and Plan: Acute * Improving, but BPs remain soft * 2/2 hypovolemia/dehydration * Continue to hold home metoprolol and Edarbi for now - resume when clinically indicated (7) Rhinovirus infection: Assessment and Plan: Acute * Incidental finding on Resp panel swab * No report of URI symptoms * Supportive care (8) GERD (gastroesophageal reflux disease): Assessment and Plan: Chronic * Continue home PPI (9) OAB (overactive bladder): Assessment and Plan: Chronic * Hold home oxybutynin d/t oliguria and need for accurate I&O monitoring * Likely resume at d/c (10) Hyperlipidemia: Assessment and Plan: Chronic * Hold home statin during acute illness/hospitalization - plan to resume at d/c * Continue home fibrate (11) Prediabetes: Assessment and Plan: Chronic * Hyperglycemia noted on labs in ED * A1C 6.3 * Plan to d/c Wegovy at discharge (initiated for weight loss) (12) HTN (hypertension): Assessment and Plan: Chronic * Continue to hold home Edarbi 2/2 hypotension and MIK * Continue to hold home metoprolol 2/2 hypotension - resume when clinically indicated (13) Degenerative disc disease, lumbar: Assessment and Plan: Chronic * Hold home Celebrex for now d/t MIK * Tylenol ES for pain
--- NOTE | 2023-08-23 09:51 | PM.PN ---
Progress Note: Subjective Subjective Interval history: 08/23/23 0855 The patient is resting in bed at the time of my exam. He reports feeling a little rough because he was up with diarrhea hourly all night long. A GI panel resulted negative for all pathogens overnight. We have initiated the patient on loperamide for diarrhea and Levsin for bowel colic associated with diarrhea. His renal function is improving but not yet back to baseline. Due to the patient's second dose of Wegovy taken on Tuesday, we expect his GI symptoms may persist. We will keep him in the hospital for another night for further IV fluids and monitoring of his renal function. He denies any further nausea and vomiting since arrival on the medical floor. Exam Constitutional Vital Signs, click to edit/add: Last Vital Signs Temp 98.1 F 08/23/23 08:00 Pulse 97 H 08/23/23 08:03 Resp 18 08/23/23 08:00 BP 103/67 08/23/23 08:00 Pulse Ox 97 08/23/23 08:00 O2 Del Method Room Air 08/23/23 08:00 Common normals: no apparent distress, oriented x3 and alert General appearance: cooperative Orientation/consciousness: Yes awake HENWA Common normals: normocephalic, head/scalp atraumatic and hearing grossly normal bilaterally Eye Common normals: PERRL, EOMs intact bilaterally, conjunctivae normal and no scleral icterus General eye: normal appearance of both eyes Chest Common normals: inspection of chest normal Chest: symmetrical chest wall rise Respiratory Common normals: normal respiratory effort, no use of accessory muscles and clear to auscultation bilaterally Effort & inspection: able to speak in complete sentences Cardio Common normals: regular rate, regular rhythm, S1 normal heart sound, S2 normal heart sound, no murmurs and peripheral pulses 2+ throughout GI Common normals: Normal to inspection, nondistended, normoactive bowel sounds present, soft to palpation and no hepatosplenomegaly Palpation: tender (Mild LLQ, non-focal); no guarding, not rigid and no rebound tenderness present Bladder/kidney exam: bladder normal to palpation Extremity Common normals: normal to inspection and no calf tenderness General: no clubbing, no cyanosis and no edema Neuro Common normals: CN's II-XII intact bilaterally, moves all extremities, no focal motor deficits and no sensory deficits noted Psych Common normals: mental status grossly normal Progress Note: Objective Labs Labs: Short CBC 08/23/23 Range/Units 04:22 WBC 6.1 (4.0-11.0) 10^3/uL Hgb 13.0 L (14.0-18.0) g/dL Hct 39.2 L (42.0-54.0) % Plt Count 245 (150-450) 10^3/uL BMP 08/22/23 08/23/23 17:04 04:22 Sodium 140 138 Potassium 4.1 4.1 Chloride 109 H 107 Carbon Dioxide 21.5 20.8 L BUN 56.0 H 38.0 H Creatinine 2.31 H 1.46 H Glucose 113 H 113 H Calcium 8.3 L 8.7 Liver Function 08/23/23 Range/Units 04:22 Total Bilirubin 0.3 (0.2-1.0) mg/dL AST 18 (15-37) U/L ALT 27 (16-63) U/L Alkaline Phosphatase 43 L (46-116) U/L Albumin 3.2 L (3.4-5.0) g/dL Progress Note: A&P Assessment and Plan (1) Acute renal failure: Assessment and Plan: Acute Improving - not yet back to baseline 2/2 dehydration from persistent N/V/D - onset 08/19/23 Continue LR at 125/hr Hold all renal toxic meds including home Edarbi and Celebrex No renal obstruction noted on CT abdomen imaging Strict I&O CBC, CMP daily (2) Hyperkalemia: Assessment and Plan: Acute Resolved - K+ 4.1 today Pt remains at risk for recurrent hypokalemia d/t GI losses from diarrhea Continue tele monitoring CMP daily (3) Hypomagnesemia: Assessment and Plan: Acute Mag 1.5 in ED Give Mag Sulfate IVPB 2gm now Repeat mag level in AM (4) Dehydration: Assessment and Plan: Acute Persistent w/ pre-renal azotemia 2/2 severe N/V/D Continue LR as above CMP daily (5) Nausea vomiting and diarrhea: Assessment and Plan: Acute Continue to suspect 2/2 new Wegovy administration Possible adverse reaction from first Wegovy dose on 08/14/23, onset of sx on 08/19/23 D/t long acting formulation, late onset (5 days) of SE is possible per pharmacy Second dose of Wegovy administered 08/21/23 [employer] in ED Recurrent N/V/D may persist since pt administered a second dose Plan to d/c on discharge. FU w/ PCP Possible viral gastroenteritis - R/O GI panel - Neg for all pathogens on panel including C-diff Loperamide for diarrhea, Levsin for bowel colic associated w/ diarrhea (6) Hypotension: Assessment and Plan: Acute Improving, but BPs remain soft 2/2 hypovolemia/dehydration Continue to hold home metoprolol and Edarbi for now - resume when clinically indicated (7) Rhinovirus infection: Assessment and Plan: Acute Incidental finding on Resp panel swab No report of URI symptoms Supportive care (8) GERD (gastroesophageal reflux disease): Assessment and Plan: Chronic Continue home PPI (9) OAB (overactive bladder): Assessment and Plan: Chronic Hold home oxybutynin d/t oliguria and need for accurate I&O monitoring Likely resume at d/c (10) Hyperlipidemia: Assessment and Plan: Chronic Hold home statin during acute illness/hospitalization - plan to resume at d/c Continue home fibrate (11) Prediabetes: Assessment and Plan: Chronic Hyperglycemia noted on labs in ED A1C 6.3 Plan to d/c Wegovy at discharge (initiated for weight loss) (12) HTN (hypertension): Assessment and Plan: Chronic Continue to hold home Edarbi 2/2 hypotension and MIK Continue to hold home metoprolol 2/2 hypotension - resume when clinically indicated (13) Degenerative disc disease, lumbar: Assessment and Plan: Chronic Hold home Celebrex for now d/t MIK Tylenol ES for pain
[2023-08-24] VITALS (8 sets, daily range): BP systolic 102–110; BP diastolic 64–67; PULSE 88–120; RESP 16–18; TEMP 36.3–36.6; O2SAT 95–97
[2023-08-24] MEDS: LACTATED RINGER'S SOLUTION 1,000 ML 125 ML IV ×2 (03:02→09:57)
[2023-08-24 04:41] LABS: Basophils Percent Auto 0.2 % (0.2-2.0); Eosinophils Absolute Auto 0.1 10^3/uL (0.0-0.7); Eosinophils Percent Auto 1.6 % (0.9-7.0); Hematocrit 36.1 % (42.0-54.0); Immature Granulocytes Abs Auto 0.01 10^3/uL (0.00-0.03); Immature Granulocytes Pct Auto 0.2 % (0.0-0.5); Lymphocytes Absolute Auto 2.5 10^3/uL (1.2-3.8); Lymphocytes Percent Auto 39.4 % (20.5-60.0); Mean Corpuscular HGB Conc 33.2 g/dL (29.9-35.2); Mean Corpuscular Hemoglobin 31.3 pg (25.9-34.0); Mean Platelet Volume 9.4 fL (9.5-13.5); Monocytes Percent Auto 15.9 % (1.7-12.0); Neutrophils Absolute Auto 2.7 10^3/uL (1.4-6.5); Neutrophils Percent Auto 42.7 % (43.0-75.0); Platelet Count 226 10^3/uL (150-450); Red Blood Count 3.84 10^6/uL (4.70-6.10); Red Cell Distribution Width 13.5 % (11.0-15.0); White Blood Count 6.2 10^3/uL (4.0-11.0)
[2023-08-24] MEDS: HYOSCYAMINE SULFATE 0.125 MG TAB.SUBL SL (04:54)
[2023-08-24 05:10] LABS: Alanine Aminotransferase 23 U/L (16-63); Albumin Globulin Ratio 0.9; Alkaline Phosphatase 36 U/L (46-116); Anion Gap 11.9; Aspartate Amino Transferase 17 U/L (15-37); BUN Creatinine Ratio 18.9; Bilirubin Total 0.2 mg/dL (0.2-1.0); Calcium 8.7 mg/dL (8.5-10.1); Carbon Dioxide 24.2 mmol/L (21.0-32.0); Chloride 106 mmol/L (98-107); Estimated GFR (African America >60 (>=60); Estimated GFR (Non-African Ame >60 (>=60); Globulin 3.5 g/dL; Glucose 107 mg/dL (74-106); Potassium 4.1 mmol/L (3.5-5.1); Sodium 138 mmol/L (136-145); Total Protein 6.5 g/dL (6.4-8.2)
[2023-08-24 05:17] LABS: Magnesium 1.5 mg/dL (1.8-2.4)
[2023-08-24] MEDS: ACETAMINOPHEN 500 MG TABLET 1000 MG PO (07:31)
--- NOTE | 2023-08-24 09:44 | P.DS_ITS ---
<Statement entered by Shaikh Aaron MD - 08/24/23 16:12> This documentation has been reviewed and approved. Case d/w Ruthy. Patient doing well. Diarrhea resolved now. No nausea or vomiting. Exam NAD, comfortable. NC/AT NT, ND, audible bs CTA b/lm, normal RR Assessment/plan MIK Rhinovirus infection HTN HLD Stable for d/c Nausea,vomiting and diarrhea resolved. F/u with PCP DS: Providers Provider Date of admission: 08/22/23 09:15 Primary care physician: OSMAR MONK Discharging clinician: Ruthy Hartmann DS: Diagnosis Discharge Diagnosis (1) Acute renal failure: (2) Hyperkalemia: (3) Hypomagnesemia: (4) Dehydration: (5) Nausea vomiting and diarrhea: (6) Hypotension: (7) Rhinovirus infection: (8) GERD (gastroesophageal reflux disease): (9) OAB (overactive bladder): (10) Hyperlipidemia: (11) Prediabetes: (12) HTN (hypertension): (13) Degenerative disc disease, lumbar: DS: Summary Hospital Course Hospital Course: The patient was admitted with MIK, dehydration, hyperkalemia, and intractable nausea, vomiting and diarrhea. Viral gastroenteritis was initially suspected, but after learning of new Wegovy prescription, we suspect side effect of Wegovy as the source of the patient's intractable N/V/D. Dehydration, MIK, and electrolyte disturbances were likely secondary to vomiting and diarrhea. He was treated with IV fluids and antiemetics and his antihypertensives were held due to hypovolemic hypotension. His hyperkalemia was treated with IV insulin and dextrose and resolved. His mild hypomagnesemia was treated with mag sulfate IVPB. An incidental finding of acute rhinovirus infection was noted on labs but the patient was asymptomatic. His renal function slowly improved and his dehydration resolved with the above measures. As the patient took a second dose of Wegovy just prior to presenting to the ED, he may experience recurrent N/V/D within the next few days. He is being discharged home in stable condition with prescriptions for Zofran, Levsin, and OTC Imodium. He is instructed to push oral fluids. His home Edarbi and metoprolol medications were held at discharge as the patient's BP remained soft. We defer to his PCP when/if these medications should be resumed. He should follow-up with his PCP in 5-7 days Time Spent with Patient Time attestation: Total time spent providing and/or coordinating discharge services: Time spent: greater than 30 minutes Specific discharge activities: Physical exam, discussion of discharge plan, questions answered. Exam Constitutional Vital Signs, click to edit/add: Last Vital Signs Temp 97.3 F L 08/24/23 07:57 Pulse 88 08/24/23 08:00 Resp 16 08/24/23 08:00 BP 102/67 08/24/23 07:57 Pulse Ox 97 08/24/23 07:57 O2 Del Method Room Air 08/24/23 07:57 Common normals: no apparent distress, oriented x3 and alert General appearance: cooperative Orientation/consciousness: Yes awake HENMT Common normals: normocephalic and head/scalp atraumatic Eye Common normals: PERRL, EOMs intact bilaterally, conjunctivae normal and no scleral icterus Neck & C-Spine Common normals: no JVD Respiratory Common normals: normal respiratory effort, no use of accessory muscles and clear to auscultation bilaterally Effort & inspection: able to speak in complete sentences and symmetric chest movement Cardio Common normals: no JVD, regular rate, regular rhythm, S1 normal heart sound, S2 normal heart sound and peripheral pulses 2+ throughout Heart sounds: murmur (HSM 2/6) GI Common normals: Normal to inspection, nondistended, normoactive bowel sounds present, soft to palpation and non-tender Bladder/kidney exam: bladder normal to palpation Extremity Common normals: normal to inspection, full ROM and normal capillary refill General: edema (Tr bilat insteps); no clubbing and no cyanosis Neuro Common normals: moves all extremities, no focal motor deficits and no sensory deficits noted Speech: speech normal Psych Common normals: mental status grossly normal and activity/motor behavior normal DS: Data Data Completed and Pending Labs on day of discharge: Labs from last 24 hours 08/24/23 04:23 WBC 6.2 RBC 3.84 L Hgb 12.0 L Hct 36.1 L MCV 94.0 MCH 31.3 MCHC 33.2 RDW 13.5 Plt Count 226 MPV 9.4 L Neut % (Auto) 42.7 L Lymph % (Auto) 39.4 [place] % (Auto) 15.9 H Eos % (Auto) 1.6 Baso % (Auto) 0.2 Neut # (Auto) 2.7 Lymph # (Auto) 2.5 [place] # (Auto) 1.0 H Eos # (Auto) 0.1 Baso # (Auto) 0.0 Abs Immat Gran (auto) 0.01 Imm/Tot Granulo (auto) 0.2 Sodium 138 Potassium 4.1 Chloride 106 Carbon Dioxide 24.2 Anion Gap 11.9 BUN 21.0 H Creatinine 1.11 Est GFR ( Amer) >60 Est GFR (Non-Af Amer) >60 BUN/Creatinine Ratio 18.9 Glucose 107 H Calcium 8.7 Magnesium 1.5 L Total Bilirubin 0.2 AST 17 ALT 23 Alkaline Phosphatase 36 L Total Protein 6.5 Albumin 3.0 L Globulin 3.5 Albumin/Globulin Ratio 0.9 Imaging Chest x-ray: Radiologist's impression: IMPRESSION: 1. No acute cardiopulmonary process. CT scan - abdomen: Radiologist's impression: IMPRESSION: 1. No acute or suspicious findings to account for patient's symptoms. 2. Cholelithiasis. 3. Nonobstructing right nephrolithiasis. 4. Mild colonic diverticulosis. 5. Osteonecrosis of right femoral head. No prior studies for comparison. Discharge Plan Discharge Disposition: Home, Self-Care Condition: Good Discharge Medications: New ondansetron 4 mg tablet,disintegrating 4 mg PO Q8H PRN (Reason: nausea and vomiting) 4 Days Qty: 20 0RF loperamide [Anti-Diarrheal (loperamide)] 2 mg capsule 2 mg PO Q4H PRN (Reason: loose stool) Qty: 24 0RF Rx Instructions: do not exceed 16 mg per 24 hrs hyoscyamine sulfate [Levsin] 0.125 mg tablet 0.125 mg PO Q6H PRN (Reason: dyspepsia) Qty: 20 0RF Continued atorvastatin 20 mg tablet 20 mg PO DAILY celecoxib 200 mg capsule 200 mg PO BID fenofibrate 160 mg tablet 160 mg PO DAILY oxybutynin chloride 5 mg tablet 5 mg PO DAILY omeprazole 20 mg capsule,delayed release(DR/EC) 20 mg PO DAILY Held Edarbi 40 mg tablet 40 mg PO DAILY Hold Instructions: Until follow up with PCP to discuss metoprolol succinate 50 mg tablet extended release 24 hr 50 mg PO DAILY Hold Instructions: Until follow up with PCP to discuss Discontinued Wegovy 0.25 mg auto-injector 0.3 mg subcut QWEEK Diet: advance to your usual diet Diet Detail: Push fluids Patient Instructions: Loperamide (By mouth), Hyoscyamine (By mouth), Ondansetron (By mouth), Dehydration (DC), Acute Kidney Injury (DC), Hyperkalemia (DC) Forms: Portal Instructions Follow Up Appointments: August 29 @ 4pm with Dr. Monk [phone] Discharge Date/Time: 08/24/23 12:08
[2023-08-24] MEDS: MAGNESIUM SULFATE IN WATER 2 GM/50 ML PREMIX IV (09:53)
[2023-08-24] MEDS: OMEPRAZOLE 20 MG CAPSULE.DR PO (09:56)
[2023-08-24] MEDS: HEPARIN SODIUM (PORCINE) 5,000 UNIT/ML VIAL 7500 UNIT SUBQ ×2 (09:57)
[2023-08-24] MEDS: FENOFIBRATE 54 MG TABLET 162 MG PO (09:57)
--- NOTE | 2023-08-24 11:31 | CM.NOTE ---
Rounds made with Dr. Walker, pt will discharge to home today. No discharge needs identified. Pt will need f/u with PCP.
[2023-08-25 04:07] LABS: Vitamin B12 332 pg/mL (232-1245)
--- NOTE | 2023-08-25 14:55 | CM.DCFOLLOWU ---
Person spoke with: patient How are you feeling? well How is your pain? no pain Did you understand your discharge instructions? yes Do you have any questions about your discharge instructions? no Were you given any prescriptions at discharge? yes Were you able to get your prescriptions filled? yes Do you understand how to take your medications as ordered? yes Do you have any questions about your follow up appointment and do you plan to keep your follow up appointment? no questions, follow up Aug . Patient stopped in to PCP office today so they could check blood pressure as he was getting a high reading. All was well and BP was normal Is there anything else that you would like to discuss? Questions/Comments/Concerns/Other:
== END 2023-08-24 12:08 | disposition home or self-care (01) | DRG 641 ==
LOC: ER 09:09 → MS 09:47
PROVIDERS: Nurse Practitioner; Student in an Organized Health Care Education/Training Program; Admitting Provider Internal Medicine; Emergency Provider Emergency Medicine; PCP Family Medicine; Visit Provider Internal Medicine
DX: E86.0 Dehydration (principal); N17.9 Acute kidney failure, unspecified; E87.5 Hyperkalemia; E78.5 Hyperlipidemia, unspecified; I10 Essential (primary) hypertension; I95.1 Orthostatic hypotension; K80.20 Calculus of gallbladder without cholecystitis without obstruction; K21.9 Gastro-esophageal reflux disease without esophagitis; E66.9 Obesity, unspecified; R73.03 Prediabetes; B34.8 Other viral infections of unspecified site; M51.36 Other intervertebral disc degeneration, lumbar region; Z96.649 Presence of unspecified artificial hip joint; F17.290 Nicotine dependence, other tobacco product, uncomplicated; N32.81 Overactive bladder; Z82.49 Family history of ischemic heart disease and other diseases of the circulatory system; Z82.3 Family history of stroke; Z83.6 Family history of other diseases of the respiratory system; Z80.9 Family history of malignant neoplasm, unspecified; E83.42 Hypomagnesemia; R11.2 Nausea with vomiting, unspecified; T50.995A Adverse effect of other drugs, medicaments and biological substances, initial encounter; R19.7 Diarrhea, unspecified; Z68.37 Body mass index [BMI] 37.0-37.9, adult
CPT/HCPCS: 0202U; 36415; 71045; 74176; 80048; 80053; 81001; 82607; 82728; 82746; 83036; 83540; 83550; 83690; 83735; 84100; 85025; 87045; 87493; 87507; 93005; 94761; 96361; 96365; 96366; 96372; 96376; 99285; G0328; J0500

== ENCOUNTER 2023-09-26 20:13 | Emergency (ER) | payer OTHER, SELFPAY ==
[2023-09-26 20:17] VITALS: BP 136/88; PULSE 111; TEMP 36.7; O2SAT 97; BMI 38.8
--- OUTSIDE RECORDS SUMMARY | 2023-09-26 20:22 | XMS_ITS | CCD ---
Author Organization [facility] Care Team Providers Care Configuration Management Consultant Name Role Phone Christina Apodaca Unavailable Unavailable Yandel Garcia Unavailable Unavailab estefani Garcia, Yandel Martino Unavailable Unavailab estefani Apodaca, Christina Mendiola Unavailable Unavailable Yandel Garcia Unavailable Unavailab Kendy Vázquez Unavailable LIVE, DR SHAHBAZ Auguste Primary Care Unavailable REINECK, DR MONIK Auguste Admitting Unavailabl e REINECK, DR MONIK Auguste Attending Unavailabl e ALE, DR SALINA Lopez Consulting Unavailable ADARSH CRUZ Consulting Unavailable FURLONG, DR SHAHBAZ Auguste Admitting Unavailable FURLONG, DR SHAHBAZ Auguste Attending Unavailable FURLONG, DR SHAHBAZ Auguste Primary Care Unavailable FURLONG, DR SHAHBAZ Auguste Consulting Unavailable ZIEBER, DR SALINA Lopez Consulting Unavailable MISC, DR CLAYTON Admitting Unavailable MISC, DR CLAYTON Attending Unavailable FURLONG, DR SHAHBAZ Auguste Referring Unavailable FURLONG, DR SHAHBAZ Auguste Primary Care Unavailable FURLONG, DR SHAHBAZ Auguste Consulting Unavailable MISC, DR CLAYTON Consulting Unavailable Furlong Shahbaz PERKINS Primary Care Provider JOSIE MARTIN Attending Unavailable SHAHBAZ MONK Referring Unavailable SHAHBAZ MONK Primary Care Unavailable JOSIE MARTIN Attending Unavailable SHAHBAZ MONK Referring Unavailable FURLOSHAHBAZ SINHA Primary Care Unavailable DARIOLOSHAHBAZ SINHA Attending Unavailable SHAHBAZ MONK Referring Unavailable FURLOSHAHBAZ SINHA Primary Care Unavailable JOSIE MARTIN Referring Unavailable DARIOLOSHAHBAZ SINHA Primary Care Unavailable Medications Current Medications Medication Drug Class(es) Dates Sig (Normalized) Sig (Original) acetaminophen 325 mg / HYDROcodone bitartrate 5 mg oral tablet (1 source) Opioid Agonist Start: 08-04-2023 End: 08-11-2023 HYDROcodone-acetamin ophen (NORCO) 5-325 mg per tablet Indications: Spondylolisthesis, lumbar region Take 1 tablet by mouth every 8 (eight) hours as needed for pain for up to 7 days. Max Daily Amount: 3 tablets 20 tablet 0 08/04/2023 08/11/2023 Active atorvastatin 20 mg oral tablet (10 sources) HMG-CoA Reductase Inhibitor Start: 05-03-2023 take 1 tablet by mouth once daily in the morning atorvastatin (LIPITOR) 20 mg tablet TAKE 1 TABLET BY MOUTH EVERY MORNING 90 tablet 1 05/03/2023 Active azilsartan medoxomil 40 mg oral tablet (9 sources) Angiotensin 2 Receptor Luiza Start: 07-11-2023 End: 08-15-2023 take 1 tablet by mouth once daily azilsartan medoxomiL (EDARBI) 40 mg tablet Indications: hypertension Indications: high blood pressure. TAKE 1 TABLET BY MOUTH DAILY 0 08/15/2023 Active celecoxib 200 mg oral capsule (11 sources) Nonsteroidal Anti-inflammatory Drug Start: 05-03-2023 End: 08-04-2023 take 1 capsule by mouth in the morning, then take 1 capsule by mouth at bedtime celecoxib (CeleBREX) 200 mg capsule Indications: Spondylolisthesis, lumbar region Take 1 capsule (200 mg total) by mouth in the morning and 1 capsule (200 mg total) before bedtime. 180 capsule 1 08/04/2023 Active cyclobenzaprine hydrochloride 10 mg oral tablet (10 sources) Muscle Relaxant Start: 03-07-2023 take 1 tablet by mouth three times daily as needed for muscle spasms cyclobenzaprine (FLEXERIL) 10 mg tablet Indications: Lumbar disc prolapse with compression radiculopathy Take 1 tablet (10 mg total) by mouth 3 (three) times a day as needed for muscle spasms. 30 tablet 2 03/07/2023 Active fenofibrate 160 mg oral tablet (12 sources) Peroxisome Proliferator Receptor alpha Agonist Start: 02-02-2023 End: 08-12-2023 take 1 tablet by mouth once daily in the morning fenofibrate (LOFIBRA) 160 mg tablet TAKE 1 TABLET BY MOUTH EVERY MORNING 90 tablet 1 08/12/2023 Active take 1 tablet by zoila th every twenty-four hours Fenofibrate 160 MG 1 tablet Orally daily Active magnesium oxide 400 mg oral tablet (2 sources) Start: 08-31-2023 take 1 tablet by mouth in the morning magnesium oxide (MAGOX) 400 mg tablet Take 1 tablet (400 mg total) by mouth in the morning. 100 tablet 3 08/31/2023 Active 24 hr metoprolol succinate 50 mg extended release oral tablet (12 sources) beta-Adrenergic Luiza Start: 08-12-2023 take 1 tablet by mouth once daily in the morning metoprolol succinate XL (TOPROL XL) 50 mg 24 hr tablet TAKE 1 TABLET BY MOUTH EVERY MORNING 90 tablet 1 08/12/2023 Active Start: 05-03-2023 End: 08-12-2023 take 1 tablet by mouth every twenty-four hours in the morning metoprolol succinate XL (TOPROL XL) 50 mg 24 hr tablet Take 1 tablet (50 mg total) by mouth in the morning. 0 05/03/2023 08/12/2023 Discontinued take 1 tablet by zoila th every twenty-four hours Metoprolol Succinate ER 25 MG 1 tablet Orally Once a day Active omeprazole 20 mg delayed release oral capsule (11 sources) Proton Pump Inhibitor omeprazole (PriLOSEC ) 20 mg capsule daily. 0 Active oxybutynin chloride 5 mg oral tablet (12 sources) 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 Start: 05-03-20 End: 08-12-19 24 take 1 tablet by mouth in the morning oxybutynin (DITROPAN) 5 mg tablet Indications: Urinary urgency TAKE 1 TABLET BY MOUTH IN THE MORNING 30 tablet 1 08/12/2023 Active traMADol hydrochloride 50 mg oral tablet (10 sources) Opioid Agonist Start: 06-22-19 take 1 tablet by mouth four times daily as needed for pain traMADoL (ULTRAM) 50 mg tablet Indications: Degeneration of lumbar intervertebral disc Take 1 tablet (50 mg total) by mouth 4 (four) times a day as needed for pain. 28 tablet 0 06/22/2022 Active valsartan 160 mg oral tablet (2 sources) Angiotensin 2 Receptor Luiza Start: 05-19-20 take 1 tablet by mouth in the morning valsartan (DIOVAN) 160 mg tablet Take 1 tablet (160 mg total) by mouth in the morning. 90 tablet 1 05/19/2023 Active Completed/Discontinued Medications Medication Drug Class(es) Dates Sig (Normalized) Sig (Original) phentermine hydrochloride 37.5 mg oral capsule (1 source) Sympathomimetic Amine Anorectic Start: 05-03-2023 End: 06-21-2023 take 39-39.9 capsules by mouth once daily before breakfast phentermine 37.5 MG capsule Indications: Class 2 severe obesity due to excess calories with serious comorbidity and body mass index (BMI) of 39.0 to 39.9 in adult Take 1 capsule (37.5 mg total) by mouth every morning before breakfast. 30 capsule 0 05/03/2023 06/21/2023 Discontinued (Therapy completed) predniSONE 20 mg oral tablet (4 sources) Start: 06-21-2023 End: 08-04-2023 predniSONE (DELTASONE) 20 mg tablet Indications: Lateral epicondylitis of left elbow Take twice daily for 7 days then once daily for 7 days 21 tablet 0 06/21/2023 08/04/2023 Discontinued (Therapy completed) Problems Active Problems Problem Classification Problem Date Documented Date Episodic/Chronic Acute and unspecified renal failure (3 sources) Acute nontraumatic kidney injury; Translations: [Acute kidney failure, unspecified] Onset: 08-30-2023 08-30-2023 Episodic Disorders of lipid metabolism (10 sources) Hypercholesterolemia; Translations: [Pure hypercholesterolemia, unspecified] Onset: 06-29-2018 03-02-2022 Chronic Esophageal disorders (10 sources) Gastroesophageal reflux disease; Translations: [Gastro-esophageal reflux disease without esophagitis] Onset: 06-29-2018 03-02-2022 Chronic Essential hypertension (14 sources) Essential hypertension; Translations: [Essential (primary) hypertension] Onset: 06-29-2018 03-02-2022 Chronic Genitourinary symptoms and ill-defined conditions (2 sources) Urgent desire to urinate; Translations: [Urgency of urination] 07-28-2023 Episodic Osteoarthritis (10 sources) Osteoarthritis; Translations: [Unspecified osteoarthritis, unspecified site] Onset: 03-02-2022 03-02-2022 Chronic Other acquired deformities (1 source) Lumbar spondylolisthesis; Translations: [Spondylolisthesis, lumbar region] 08-04-2023 Episodic Other acquired deformities (1 source) Spondylolisthesis, lumbar region; Translations: [Spondylolisthesis, lumbar region] Onset: 08-04-2023 Episodic Other connective tissue disease (1 source) Presence of unspecified artificial hip joint; Translations: [PRESENCE UNS ARTIFICIAL HIP JOINT] Onset: 02-23-2021 Chronic Other connective tissue disease (4 sources) Pain in right foot; Translations: [PAIN IN RIGHT FOOT] Onset: 12-03-2021 Episodic Other connective tissue disease (1 source) Calcaneal spur, right foot; Translations: [CALCANEAL SPUR RIGHT FOOT] Onset: 12-08-2021 Episodic Other connective tissue disease (2 sources) Lateral epicondylitis of left humerus; Translations: [Lateral epicondylitis, left elbow] 06-21-2023 Episodic Other connective tissue disease (1 source) Lateral epicondylitis, left elbow; Translations: [Lateral epicondylitis, left elbow] Onset: 06-21-2023 Episodic Other nutritional; endocrine; and metabolic disorders (10 sources) Severe obesity; Translations: [Morbid (severe) obesity due to excess calories] Onset: 04-07-2023 04-07-2023 Chronic Other nutritional; endocrine; and metabolic disorders (12 sources) Morbid obesity; Translations: [Morbid (severe) obesity due to excess calories] Onset: 07-01-2018 Resolved: 04-07-2023 04-07-2023 Chronic Other nutritional; endocrine; and metabolic disorders (4 sources) Hypomagnesemia; Translations: [Hypomagnesemia] Onset: 08-31-2023 08-30-2023 Chronic Other nutritional; endocrine; and metabolic disorders (2 sources) Hypomagnesemia; Translations: [Hypomagnesemia] Onset: 08-30-2023 Chronic Other nutritional; endocrine; and metabolic disorders (1 source) Weight loss Onset: 08-04-2023 Episodic Other upper respiratory infections (1 source) Chronic sinusitis, unspecified; Translations: [Chronic sinusitis, unspecified] Onset: 11-23-2017 Chronic Spondylosis; intervertebral disc disorders; other back problems (10 sources) Degeneration of lumbar intervertebral disc; Translations: [Other intervertebral disc degeneration, lumbar region] Onset: 06-29-2018 03-02-2022 Chronic Substance-related disorders (11 sources) Nicotine dependence, cigarettes, uncomplicated; Translations: [Cigarette smoker ] Onset: 05-12-2020 03-02-2022 Chronic Unclassified (2 sources) Chronic sinusitis, unspecified / J32.9(ICD-10) Onset: 11-23-2017 Unclassified (1 source) elbow, arm wrist pain w/ lump on wrist Onset: 06-21-2023 Past or Other Problems Problem Classification Problem Date Documented Da te Episodic/Chronic Diabetes mellitus without complication (12 sources) Prediabetes; Translations: [Prediabetes] Onset: 3 12-03-2022 Episodic Headache; including migraine (10 sources) Headache; Translations: [Headache] Onset: 9 03-02-2022 Episodic Immunizations and screening for infectious disease (1 source) Contact with and (suspected) exposure to other viral communicable diseases Onset: 2 Resolved: 2 Episodic Mood disorders (10 sources) Mood disorders Onset: 4 Resolved: 4 06-21-2023 Other acquired deformities (1 source) Spondylolisthesis L5/S1 level; Translations: [Spondylolisthesis, lumbosacral region] Episodic Other aftercare (1 source) Other joint terminal attack controller (current) drug therapy; Translations: [OTH DETENTION CURRENT DRUG THERAPY] Onset: 1 Episodic Other connective tissue disease (10 sources) Iliotibial band friction syndrome; Translations: [Iliotibial band syndrome, unspecified leg] Onset: 2 03-02-2022 Episodic Other gastrointestinal disorders (1 source) Diarrhea, unspecified Onset: 2 Resolved: 2 Episodic Other infections; including parasitic (10 sources) Personal history of other infectious and parasitic diseases; Translations: [History of COVID-19] Onset: 2 03-02-2022 Episodic Other non-traumatic joint disorders (4 sources) Pain in right knee; Translations: [PAIN IN RIGHT KNEE] Onset: 1 Episodic Spondylosis; intervertebral disc disorders; other back problems (11 sources) Lumbar disc prolapse with radiculopathy; Translations: [Intervertebral disc disorders with radiculopathy, lumbar region] Onset: 3 12-03-2022 Episodic Sprains and strains (1 source) Sprain of unspecified site of right knee, initial encounter; Translations: [SPRAIN UNS SITE RT KNEE INITIAL] Onset: Episodic Results Test Name Value Interpretation Reference Range Facility COMPREHENSIVE METABOLIC PANE Clint 08-30-2023 Albumin [Mass/Vol] 4.1 g/dL Normal 3.2-5.3 [facility] Comment on above: Performed By: #### C SID, #### [facility] ([id number]) [address], [address] [place] [address] ALP [Catalytic activity/Vol] 32 U/L Low 39-130 [facility] Comment on above: Performed By: #### C SID, #### [facility] ([id number]) [address], [address] [place] [address] ALT [Catalytic activity/Vol] 58 U/L High 0-40 [facility] Comment on above: Performed By: #### Tacos LAU, #### [facility] ([id number]) [address], [address] [place] [address] Anion gap [Moles/Vol] 9 mmol/L Normal 5-15 [facility] Comment on above: Performed By: #### Tacos LAU, #### [facility] ([id number]) [address], [address] [place] [address] AST [Catalytic activity/Vol] 40 U/L Normal 0-41 [facility] Comment on above: Performed By: #### Tacos LAU, #### [facility] ([id number]) [address], [address] [place] [address] Bilirubin [Mass/Vol] 0.3 mg/dL Normal 0.3-1.2 [facility] Comment on above: Performed By: #### Tacos LAU, #### [facility] ([id number]) [address], [address] [place] [address] Calcium [Mass/Vol] 9.7 mg/dL Normal 8.5-10.5 [facility] Comment on above: Performed By: #### Tacos LAU, #### [facility] ([id number]) [address], [address] [place] [address] Chloride [Moles/Vol] 107 mmol/L Normal 98-109 [facility] Comment on above: Performed By: #### Tacos LAU, #### [facility] ([id number]) [address], [address] [place] [address] CO2 [Moles/Vol] 26 mmol/L Normal 22-32 [facility] Comment on above: Performed By: #### Tacos LAU, #### [facility] ([id number]) [address], [address] [place] [address] Creatinine [Mass/Vol] 1.18 mg/dL Normal 0.60-1.30 [facility] Comment on above: Result Comment: METH OD TRACEABLE TO IDMS STANDARD Performed By: #### Tacos LAU, #### [facility] ([id number]) [address], [address] [place] [address] GFR/1.73 sq M.predicted among non-blacks MDRD (S/P/Bld) [Vol rate/Area] 75 mL/min/{1.73_m2} Normal >59 [facility] Comment on above: Result Comment: Reported eGFR is based on the CKD-EPI 1 equation that does not use a race coefficient. Performed By: #### Tacso LAU, #### [facility] ([id number]) [address], [address] [place] [address] Glucose [Mass/Vol] 92 mg/dL Normal 65-99 [facility] Comment on above: Performed By: #### Tacos LAU, #### [facility] ([id number]) [address], [address] [place] [address] Potassium [Moles/Vol] 4.1 mmol/L Normal 3.5-5.0 [facility] Comment on above: Performed By: #### C SID, 21640-0 #### [facility] ([id number]) [address], [address] [place] [address] Protein [Mass/Vol] 6.8 g/dL Normal 6.0-8.0 [facility] Comment on above: Performed By: #### Tacos LAU, 85248-6 #### [facility] ([id number]) [address], [address] [place] [address] Sodium [Moles/Vol] 142 mmol/L Normal 134-146 [facility] Comment on above: Performed By: #### Tacos LAU, 68876-9 #### [facility] ([id number]) [address], [address] [place] [address] Urea nitrogen [Mass/Vol] 23 mg/dL Normal 5-23 [facility] Comment on above: Performed By: #### Tacos LAU, 76902-2 #### [facility] ([id number]) [address], [address] [place] [address] Comprehensive metabolic pane clint 08-30-2023 Albumin [Mass/Vol] 4.1 g/dL 3.2 - 5.3 g/dL [facility] ALP [Catalytic activity/Vol] 32 U/L Low 39 - 130 U/L [facility] ALT No additional P-5'-P [Catalytic activity/Vol] 58 U/L High 0 - 40 U/L [facility] Anion gap [Moles/Vol] 9 mmol/L 5 - 15 mmol/L [facility] AST [Catalytic activity/Vol] 40 U/L 0 - 41 U/L [facility] Bilirubin [Mass/Vol] 0.3 mg/dL 0.3 - 1.2 mg/dL [facility] Calcium [Mass/Vol] 9.7 mg/dL 8.5 - 10. 5 mg/dL [facility] Chloride [Moles/Vol] 107 mmol/L 98 - 109 mmol/L [facility] CO2 [Moles/Vol] 26 mmol/L 22 - 32 mmol/L [facility] Creatinine [Mass/Vol] 1.18 mg/dL 0.60 - 1.30 mg/dL [facility] Comment on above: METHOD TRACEABLE TO IDSD STANDARD eGFR (CKD-EPI)non-race dependent 75 - PINF [facility] Comment on above: Reported eGFR is based on the CKD-EPI 2020 equation that does not use a race coefficient. Glucose [Mass/Vol] 92 mg/dL 65 - 99 mg/dL [facility] Potassium [Moles/Vol] 4.1 mmol/L 3.5 - 5.0 mmol/L [facility] Protein [Mass/Vol] 6.8 g/dL 6.0 - 8.0 g/dL [facility] Sodium [Moles/Vol] 142 mmol/L 134 - 146 mmol/L [facility] Urea nitrogen [Mass/Vol] 23 mg/dL 5 - 23 mg/dL [facility] MAGNESIUMon 08-30-2023 Magnesium [Mass/Vol] 1.7 mg/dL Low 1.8-2.6 [facility] Comment on above: Performed By: #### C , 32994-5 #### [facility] ([id number]) [address], [address] [place] [address] Magnesiumon 08-30-2023 Magnesium [Mass/Vol] 1.7 mg/dL Low 1.8 - 2.6 mg/dL [facility] No Panel Informationon 08-29 Interpretation and review of laboratory results Abnormal [facility] COVID Quick Testingon 2021 Result Negative [facility] Other COMPREHENSIVE METABOLIC PANE Clint 06-02-2021 Albumin [Mass/Vol] 4.2 g/dL Normal 3.6-5.1 [facility] Comment on above: Performed By: #### 1 0231, 3930 #### [facility] [place] [address] [address] , [address] [place] [address] [employer] Repairer: Curtis Doan MD Albumin/Globulin [Mass ratio] 1.6 {ratio} Normal 1.0-2.5 [facility] Comment on above: Performed By: #### 1 023, 7600 #### [facility] of [place] [address] [employer] Repairer: Curtis Doan MD ALP [Catalytic activity/Vol] 44 U/L Normal 36-130 [facility] Comment on above: Performed By: #### 1 023, 7600 #### [facility] of [address], [address] [place] [address] Kil[employer] Repairer: Curtis Doan MD ALT [Catalytic activity/Vol] 17 U/L Normal 9-46 [facility] Comment on above: Performed By: #### 1 023, 7600 #### [facility] of [place] [address] [employer] Repairer: Curtis Doan MD AST [Catalytic activity/Vol] 17 U/L Normal 10-40 [facility] Comment on above: Performed By: #### 1 230, 7600 #### [facility] of [place] [address] [employer] Repairer: Curtis Doan MD Bilirubin [Mass/Vol] 0.3 mg/dL Normal 0.2-1.2 [facility] Comment on above: Performed By: #### 1 230, 7600 #### [facility] of [place] [address] [employer] Repairer: Curtis Doan MD Calcium [Mass/Vol] 9.6 mg/dL Normal 8.6-10.3 [facility] Comment on above: Performed By: #### 1 023, 7600 #### [facility] of [place] [address] [employer] Repairer: Curtis Doan MD Chloride [Moles/Vol] 107 mmol/L Normal 98-110 [facility] Comment on above: Performed By: #### 1 0231, 7600 #### [facility] of [place] [address] [address] [address] [employer] Repairer: Curtis Doan MD CO2 [Moles/Vol] 26 mmol/L Normal 20-32 [facility] Comment on above: Performed By: #### 1 0231, 7600 #### [facility] of [address], [address] [place] [address] Kiln Car Repairer: Curtis Doan MD Creatinine [Mass/Vol] 0.89 mg/dL Normal 0.60-1.35 [facility] Comment on above: Performed By: #### 1 023, 7600 #### [facility] of [place] [address] [employer] Repairer: Curtis Doan MD eGFR NON-AFR. ENGLISH 101 mL/min/1.73m2 Normal > OR = 60 [facility] Comment on above: Performed By: #### 1 023, 7600 #### [facility] of [place] [address] [employer] Repairer: Curtis Doan MD GFR/1.73 sq M.predicted among blacks MDRD (S/P/Bld) [Vol rate/Area] 117 mL/min/{1.73_m2} Normal > OR = 60 [facility] Comment on above: Performed By: #### 1 023, 7600 #### [facility] [place] [address] [employer] Repairer: Curtis Doan MD Globulin (S) [Mass/Vol] 2.7 g/dL Normal 1.9-3.7 [facility] Comment on above: Performed By: #### 1 023, 7600 #### [facility] of [place] [address] [employer] Repairer: Curtis Doan MD Glucose [Mass/Vol] 103 mg/dL Normal 65-139 [facility] Comment on above: Result Comment: Non-fasting reference interval For someone without known diabetes, a glucose value between 100 and 125 mg/dL is consistent with prediabetes and should be confirmed with a follow-up test. Performed By: #### 1 0231, 7600 #### [facility] of [address], [address] [place] [address] Kiln Car Repairer: Curtis Doan MD Potassium [Moles/Vol] 4.1 mmol/L Normal 3.5-5.3 [facility] Comment on above: Performed By: #### 1 0231, 7600 #### [facility] of [address], [address] [place] [address] Kil[employer] Car Repairer: Curtis Doan MD Protein [Mass/Vol] 6.9 g/dL Normal 6.1-8.1 [facility] Comment on above: Performed By: #### 1 0231, 7600 #### [facility] of [address], [address] [place] [address] Kiln Car Repairer: Curtis Doan MD Sodium [Moles/Vol] 140 mmol/L Normal 135-146 [facility] Comment on above: Performed By: #### 1 0231, 7600 #### [facility] of [address], [address] [place] [address] Kiln Car Repairer: Curtis Doan MD Urea nitrogen [Mass/Vol] 27 mg/dL High 7-25 [facility] Comment on above: Performed By: #### 1 0231, 7600 #### [facility] of [address], [address] [place] [address] Kiln Car Repairer: Curtis Doan MD Urea nitrogen/Creatinin e [Mass ratio] 30 mg/mg High 6-22 [facility] Comment on above: Performed By: #### 1 0231, 7600 #### [facility] of [address], [address] [place] [address] Kiln Car Repairer: Curtis Doan MD LIPID PANEL, [facility] 05-14 Cholesterol [Mass/Vol] 123 mg/dL Normal <200 [facility] Comment on above: Order Comment: FASTI NG:NO FASTING: NO Performed By: #### 1 0231, 7600 #### [facility] of [address], [address] [place] [address] Kiln Car Repairer: Curtis Doan MD Cholesterol in HDL [Mass/Vol] 29 mg/dL Low > OR = 40 [facility] Comment on above: Order Comment: FASTI NG:NO FASTING: NO Performed By: #### 1 0231, 7600 #### [facility] [address], [address] [place] [address] Kiln Car Repairer: Curtis Doan MD Cholesterol in LDL [Mass/Vol] 52 mg/dL Normal [facility] Comment on above: Order Comment: FASTI NG:NO FASTING: NO Result Comment: Refe rence range: <100 Desirable range <100 mg/dL for primary prevention; <70 mg/dL for patients with CHD or diabetic patients with > or = 2 CHD risk factors. LDL-C is now calculated using the Rudy calculation, which is a validated novel method providing better accuracy than the Friedewald equation in the estimation of LDL-C. Noman SS et al. EARNESTINE. 2013;310(19): 2613-0191 (http://education.[employer].Compliance Assurance/faq/RHX049) Performed By: #### 1 023, 0 #### [facility] [address], [address] [place] [address] Kiln Car Repairer: Curtis Doan MD Cholesterol.total/ Cholesterol in HDL [Mass ratio] 4.2 {ratio} Normal <5.0 [facility] Comment on above: Order Comment: FASTI NG:NO FASTING: NO Performed By: #### 1 023, 7600 #### [facility] [address], [address] [place] [address] Kiln [employer] Repairer: Curtis Doan MD NON HDL CHOLESTEROL 94 mg/dL (calc) Normal <130 [facility] Comment on above: Order Comment: FASTI NG:NO FASTING: NO Result Comment: For patients with diabetes plus 1 major ASCVD risk factor, treating to a non-HDL-C goal of <100 mg/dL (LDL-C of <70 mg/dL) is considered a therapeutic option. Performed By: #### 1 0231, 7600 #### [facility] [address], [address] [place], [place] [address] [employer]n Car Repairer: Curtis Doan MD Triglyceride [Mass/Vol] 397 mg/dL High <150 [facility] Comment on above: Order Comment: FASTI NG:NO FASTING: NO Result Comment: If a non-fasting specimen was collected, consider repeat triglyceride testing on a fasting specimen if clinically indicated. Alex et al. J. of Clin. Lipidol. 2015;9:129-169. Performed By: #### 1 0231, 7600 #### [facility] [address], [address] [place] [address] [employer]n Car Repairer: Curtis Doan MD CBC AUTO DIFFon 05-15-2021 BASO # 0.0 103/ul Normal 0.0-0.1 [facility] Comment on above: Performed By: #### C BC #### [facility] [address] [address] [address] Diego Covarrubias Basophils/100 WBC (Bld) 0.5 % Normal 0.2-2.0 [facility] Comment on above: Performed By: #### C BC #### [facility] [address] [address] [address] Diego Covarrubias EO # 0.1 103/ul Normal 0.0-0.7 [facility] Comment on above: Performed By: #### C BC #### [facility] [address] [address] [address] Diego Covarrubias Eosinophils/100 WBC (Bld) 1.5 % Normal 0.9-7.[address] [facility] Comment on above: Performed By: #### C BC #### [facility] [address] [address] [address] Diego Covarrubias Erythrocyte distribution width (RBC) [Ratio] 12.6 % Normal 11.0-15.0 [facility] Comment on above: Performed By: #### C BC #### [facility] [address] [address] [address] Diego Covarrubias Hematocrit (Bld) [Volume fraction] 41.9 % Critically low 42.0-54.0 [facility] Comment on above: Performed By: #### C BC #### [facility] [address] [place] [address] Dr. Diego Covarrubias Hemoglobin (Bld) [Mass/Vol] 14.2 g/dL Normal 14.0-18.0 [facility] Comment on above: Performed By: #### C BC #### [facility] [address] [place] [address] Dr. Diego Covarrubias IG # 0.03 10e3/ul Normal 0.00-0.03 [facility] Comment on above: Performed By: #### C BC #### [facility] [address] [place] [address] Dr. Diego Covarrubias IG % 0.5 % Normal 0.0-0.5 [facility] Comment on above: Performed By: #### C BC #### [facility] [address] [place] [address] Dr. Diego Covarrubias LYMPH # 2.0 103/ul Normal 1.2-3.[address] [facility] Comment on above: Performed By: #### C BC #### [facility] [address] [place] [address] Dr. Diego Covarrubias Lymphocytes/100 WBC (Bld) 32.1 % Normal 20.5-60.0 [facility] Comment on above: Performed By: #### C BC #### [facility] [address] [place] [address] Dr. Diego Covarrubias MANUAL DIFF REQ NO Normal [facility] Comment on above: Performed By: #### C BC #### [facility] [address] [place] [address] Dr. Diego Covarrubias MCH (RBC) [Entitic mass] 31.5 pg Normal 25.9-34.0 [facility] Comment on above: Performed By: #### C BC #### [facility] [address] [place] [address] Dr. Diego Covarrubias MCHC (RBC) [Mass/Vol] 33.9 g/dL Normal 29.9-35.[address] [facility] Comment on above: Performed By: #### C BC #### [facility] [address] [address] [address] Diego Covarrubias MCV (RBC) [Entitic vol] 92.9 fL Normal 80.0-94.0 [facility] Comment on above: Performed By: #### C BC #### [facility] [address] [place] [address] Dr. Diego Covarrubias MONO # 0.8 103/ul Normal 0.3-0.[address] [facility] Comment on above: Performed By: #### C BC #### [facility] [address] [place] [address] Dr. Diego Covarrubias Monocytes/100 WBC (Bld) 13.5 % Critically high 1.7-12.[address] [facility] Comment on above: Performed By: #### C BC #### [facility] [address] [place] [address] Dr. Diego Covarrubias NEUT # 3.2 103/ul Normal 1.4-6.5 [facility] Comment on above: Performed By: #### C BC #### [facility] [address] [place] [address] Dr. Diego Covarrubias Neutrophils/100 WBC (Bld) 51.9 % Normal 43.0-75.[address] [facility] Comment on above: Performed By: #### C BC #### [facility] [address] [place] [address] Dr. Diego Covarrubias Platelet mean volume (Bld) [Entitic vol] 9.6 fL Normal 9.5-13.[address] [facility] Comment on above: Performed By: #### C BC #### [facility] [address] [place] [address] Dr. Diego Covarrubias PLT 244 103/ul Normal 150-[address] [facility] Comment on above: Performed By: #### C BC #### [facility] [address] [place], [place] [id number] Dr. Diego Covarrubias RBC 4.51 106/ul Critically low 4.70-6.10 [facility] Comment on above: Performed By: #### C BC #### [facility] [address] [place] [address] Dr. Diego Covarrubias WBC 6.2 103/ul Normal 4.0-11.[address] [facility] Comment on above: Performed By: #### C #### [facility] [id number] Diego Cov[address] CT SINUS WO CONTRASTon 11-23 CT SINUS WO CONTRAST Name: JORGITO HARRY STUDY:CT SINUS WO CONTRAST; 11/23/2017 4:50 pm INDICATION:Signs/Sympto ms: left sided sinus pressure/pain, left frontal headache. COMPARISON:None. ORDERING CLINICIAN:CHRISTINA APODACA TECHNIQUE:Noncontrast axial with coronal and sagittal reconstructed CT imagesof the paranasal sinuses were reviewed. FINDINGS:FRONTAL SINUSES:Grossly clear. No air fluid levels. ETHMOID AIR CELLS:Mild mucosal thickening. No air fluid levels. OSTEOMEATAL UNITS:Thickened but grossly patent bilaterally. MAXILLARY SINUSES:Mild mucosal thickening. No air fluid levels. SPHENOID SINUSES:Clear. No air fluid levels. MASTOID AIR CELLS:Mild partial opacification of uncertain chronicity. OSSEOUS STRUCTURES:There is approximate 3.4 cm length defect in the anterior nasalseptum probably related to previous surgery. There is mild rightwarddeviation of the remaining nasal septum anteriorly and leftwarddeviation more posteriorly. Mild associated leftward spurring of thenasal septum. There is mucosal thickening remaining nasal septum andthere is some mucosal thickening of the nasal turbinates. There isdeformity of the right orbital floor with bulging appearanceinferiorly toward the right maxillary sinus and containing orbitalfat with this measuring approximately 1.6 x 0.5 cm most suggestive ofsequela of previous orbital floor fracture. ADDITIONAL FINDINGS:None significant. IMPRESSION:Mild ethmoid and maxillary sinus disease as above. Mild partial opacification mastoid air cells of uncertain chronicity. Approximate 3.4 cm length defect in the anterior nasal septumprobably related to previous surgical change with some mild deviationof the remaining nasal septum as above and associated mucosalthickening of the nasal septum and also mucosal thickening of thenasal turbinates. Deformity of the right orbital floor as described most consistentwith sequela of previous orbital floor fracture which is probablychronic. Clinical correlation recommended.Electronica lly signed by: DO Narcisa BYRD [facility] Initial Visit (Otolaryngolog y)on 11-21-2017 Initial Visit (Otolaryngology) Chief ComplaintBuck is a new patient that is here for possible deviated septum History of Present IllnessMartacos Harry is here for a new patient consultation for his chronic sinus infections. He was referred by Dr. Garcia at [facility]. Pt reports repeat sinus infections. Jorgito states his last antibiotic was prescribed last . He describes his sinus infections with lots of drainage, runny nose, facial pressure and a left frontal NIEVES. Pt is not on any nasal sprays and has not tried these in the past. CC is recurrent sinus infections and NIEVES, facial pressure and pain in his forehead region. But he does not report any restrained breathing through the nose. No crusting.Pt does not state that the drainage or blockage is localized to one side. Hx of recreational drug user including cocaine use. But reports no spontaneous nose bleeds. No previous nasal surgeries. Review of SystemsAll other systems are negative for complaint except what is mentioned in the HPI.Review of systems: Hx of diabetes- diagnosed within the last 2 years. Managed by medication And Hx of high BP. Quit smoking 5 weeks ago. Has been tested for sleep apnea which confirmed his diagnosis within the last 1-2 years but Jorgito has not since followed up with CPAP trial. I recommended pt goes back to give CPAP machine a try and also to manage his high BP. Active Problems Chronic sinusitis (473.9) (J32.9) Past Medical History History of arthritis (V13.4) (Z87.39) History of gastroesophageal reflux (GERD) (V12.79) (Z87.19) Surgical History History of Hip Replacement Family History Family history of FHx: COPD (chronic obstructive pulmonary disease) (V17.6) (Z82.5) Family history of Heart problem Social History Drinks beer (V49.89) (Z78.9) Employed Former smoker (V15.82) (Z87.891) Lives with family Current Meds BusPIRone HCl - 15 MG Oral Tablet;Therapy: [id number] to Recorded Dispense: 0 Days ; #: Sufficient Tablet; Refill: 0; ELENITA = N; Record; Last Updated By: Amisha Matias; 11/09/2017 1:27:18 PM Vitals Vital Signs Recorded: [id number] 01:08JLOgeywv3 ft 7 rfQwdawa374 lb BMI Cazpkemhxt06.75BSA Calculated2.19 Physical ExamPhysical Examination:A detailed examination of the ears nose and throat was performed. The general appearance of the head and neck area including observation of overall appearance, scars, any obvious lesions, and masses are noted. Symmetry of the face on motion is noted. There is no audible stridor. There is no clubbing of the hands.The eyes were inspected for a pupillary reaction to light extraocular muscles and scleral appearance. The auricles were examined for the external appearance of the ears as well as external auditory canal and the appearance of the tympanic membrane. The nasal passages were examined for deviations of the septum, any mucosal lesions and any evidence of turbinate hypertrophy. The oral cavity was examined with attention to the lips, teeth and the gingiva. The tongue is noted to be midline. The floor of the mouth is inspected as well as the salivary glands are also examined and palpated. The palate motion is noted. The posterior pharynx is also examined for cobblestoning and lesions. The neck is examined for full range of motion, crepitus, any palpable lymphadenopathy, any palpable thyroid nodules. The trachea is examined for its position. A full cranial nerve exam, CN II-XII, is performed. When possible an indirect mirror exam is performed to look at the nasopharynx and larynx.The following are noted to be significant: Middle vault- saddle nose defomrity. No support of the nasal tip.EXAM: Septum- subtotal perforation, no crusting around the perforation. Upper remaining cartilage- 1cm. Inferior aspect also 0.3cmNASAL ENDOSCOPY: R: no bleeding. Towards front has a sliver of cartilage and missing cartilage high up. Are cartilaginous portions of septum are mostly missing, the posterior bony portion remain in tact. Normal looking mucous not concerned about his sinuses. ProcedureNASAL ENDOSCOPY (CPT 71887):To better evaluate the patient's symptoms sinonasal endoscopy is indicated. After discussion of risks and benefits and after adequate topical decongestion and topical anesthesia, an endoscope was used to perform nasal endoscopy on each side. A timeout identifying the patient, the procedure, in the location of the procedure was performed. Any patient concerns were addressed prior to beginning the procedure.FINDINGS:NASA L ENDOSCOPY: R: no bleeding or custing evidence. Towards front has a sliver of cartilage and missing cartilage high up. majority of the cartilaginous portions of septum are mostly missing, the posterior bony portion remain in tact. Normal looking mucous surrounding the inferior turbinates. Diagnoses/Problems Chronic sinusitis (473.9) (J32.9) Nasal septal perforation (478.19) (J34.89) Sinus pressure (478.19) (J34.89) Orders CT Sinus without Contrast; Status:Active; Requested for:23Nov2017; Perform:[facility];Ordered; For:Chronic sinusitis; Ordered By:Christina Apodaca;Reason: Unspecified for CT Sinus without ContrastRadiologist to Determine Optimal Study : YRequesting physician's phone/pager number? : [phone] Alerts (ie: MRSA, TB, Diabetic) : diabeticWhat are the patient's signs and symptoms? : left sided sinus pressure/pain, left frontal headache Provider Impressions1. Subtotal nasal perforation2. Chronic rhinosinusitis symptomsDiscussion:Jorgito and I had a long discussion with regards to his symptoms and his exam findings. He is aware and has been told about his nasal perforation, and he is also aware that this is likely due to his prior history of intranasal cocaine use. Given the extent of the perforation, it is unlikely that I can repair it. However, a septal buttton can be placed to help with airflow issues. Also it can help with crusting but at this stage he does not appear to have any. Also a repair of the skeletal support usign his rib cartilage can be helpful.Because Jorgito reports more sinus related symptomatology, I would like to order a CT to assess sinuses. Explained to the pt that if symptoms are related to sinus disease I will send him to my colleague. Explained that a nasal reconstruction to repair his perforation will be difficult- will require intact nasal lining and a cartiliage graft from other areas and the success rate is low. However, the external nasal support can be performed. But if his symptoms are sinus related, a reconstruction should not be necessary. Next step is to discern if the facial pressure is sinus related or due to a hole in his septum. If cat scan appears clear, him and I will meet again to discuss options. If it is not I will send him to my colleague. I will order CT of the sinuses and we can discuss in f.u what his next steps are. End of Encounter MedsBusPIRone HCl - 15 MG Oral Tablet;Therapy: [id number] to Recorded Signatures Electronically signed by : Christina Apodaca MD; Nov 21 2017 7:37AM EST (Author) Normal [employer] Vital Signs Date Time Vital Sign Value Performing Clinician Facility 08-30-2023 15:51-0400 Body height 165.1 cm Josie Martin APRN-[employer] Work Phone: [facility] 08-30-2023 15:51-0400 Body mass index (BMI) [Ratio] 40 kg/m2 Josie Martin APRN-[employer] Work Phone: [facility] 08-30-2023 15:51-0400 Body temperature 98.1 [degF] Josie Martin APRN-[employer] Work Phone: [facility] [employer] [facility] 08-30-2023 15:51-0400 Body weight 109.05 kg Josie Martin APRN-[employer] Work Phone: [facility] [employer] [facility] 08-30-2023 15:51-0400 Diastolic blood pressure 70 mm[Hg] Josie Martin APRN-[employer] Work Phone: [facility] [employer] [facility] 08-30-2023 15:51-0400 Heart rate 107 /min Josie [employer]ASSEM[employer] Work Phone: [facility] [employer] [facility] 08-30-2023 15:51-0400 Respiratory rate 18 /min Josie Martin APRN-[employer]SEM[employer] Work Phone: [facility] [employer] 08-30-2023 15:51-0400 SaO2% (BldA) [Mass fraction] 98 % Josie Martin APRN-[employer] Work Phone: [facility] 08-30-2023 15:51-0400 Systolic blood pressure 120 mm[Hg] Josie Martin APRN-[employer] Work Phone: [facility] 08-04-2023 14:27-0500 Body height 165.1 cm Shahbaz Furlong DO [facility] 08-04-2023 14:27-0500 Body mass index (BMI) [Ratio] 40.25 kg/m2 Shahbaz Furlong DO Work Phone: [facility] [employer] 08-04-2023 14:27-0500 Body temperature 98.6 [degF] Shahbaz Furlong DO Work Phone: [facility] [employer] 08-04-2023 14:27-0500 Body weight 109.72 kg Shahbaz Furlong DO Work Phone: [facility] [employer] 08-04-2023 14:27-0500 Diastolic blood pressure 68 mm[Hg] Shahbaz Furlong DO Work Phone: [facility] [employer] 08-04-2023 14:27-0500 Heart rate 100 /min Shahbaz Furlong DO Work Phone: [facility] [employer] 08-04-2023 14:27-0500 SaO2% (BldA) [Mass fraction] 97 % Shahbaz Furlong DO Work Phone: [facility] [employer] 08-04-2023 14:27-0500 Systolic blood pressure 110 mm[Hg] Shahbaz Furlong DO Work Phone: [facility] [employer] [facility] 06-21-2023 16:30-0500 Body height 165.1 cm Josie Martin APRN-[employer] Work Phone: [facility] [employer] [employer] 06-21-2023 16:30-0500 Body mass index (BMI) [Ratio] 39.51 kg/m2 Josie Martin APRN-[employer] Work Phone: [facility] [employer] [facility] [employer] 06-21-2023 16:30-0500 Body temperature 98.29 [degF] Josie Martin APRN-[employer] Work Phone: [facility] [employer] [facility] [employer] 06-21-2023 16:30-0500 Body weight 107.68 kg Josie [employer]ASSEMBL[employer] Work Phone: [employer] 06-21-2023 16:30-0500 Diastolic blood pressure 66 mm[Hg] Josie Martin APRN-[employer]SEM[employer] Work Phone: [employer] 06-21-2023 16:30-0500 Heart rate 98 /min Josie [employer]ASSEM[employer] Work Phone: [employer] 06-21-2023 16:30-0500 SaO2% (BldA) [Mass fraction] 95 % Josie [employer]ASSEM[employer] Work Phone: [employer] 06-21-2023 16:30-0500 Systolic blood pressure 102 mm[Hg] Josie Martin APRNElmaASSEMBLER HANDBAGS Work Phone: [employer] 06-16-2021 11:30-0500 Body height 167.64 cm Kendy Carey Other [facility] Other 06-16-2021 11:30-0500 Body mass index (BMI) [Ratio] 36.31 kg/m2 Kendy Carey Other [facility] Other 06-16-2021 11:30-0500 Body temperature 98.6 [degF] Kendy Carey Other [facility] Other 06-16-2021 11:30-0500 Body weight 102.06 kg Kendy Carey Other [facility] Other 06-16-2021 11:30-0500 Respiratory rate 20 /min Kendy Carey Other [facility] Other 06-16-2021 11:30-0500 SaO2% (BldA) [Mass fraction] 98 % Kendy Carey Other [facility] Other Encounters Encounter Date Encounter Type Care Provider Facility Start: 09-12-2023 Orders Only Shahbaz Alfonso ng DO Work Phone: [facility] Start: 08-31-2023 Orders Only Josie Martin [employer] MANAGER-[employer] Work Phone: [facility] Comment on above: Hypomagnesemia (Prim yudy Dx) Start: 08-31-2023 End: 08-31-2023 ambulatory [facility] Start: 08-30-2023 End: 08-30-2023 ambulatory [facility] Start: 08-30-2023 End: 08-30-2023 Office outpatient visit 25 minutes Josie Martin [employer] QUALITY MANAGER-[employer] Work Phone: [facility] Comment on above: Acute kidney injury (nontraumatic) ([facility]) (Primary Dx); Hypomagnesemia; Essential hypertension; Morbid obesity ([facility]) Start: 08-13-2023 Refill Shahbaz Arthurlo ng DO Work Phone: [facility] Comment on above: Essential (primary) hypertension Start: 08-12-2023 Refill Shahbazevi Arthurlo ng DO Work Phone: [facility] Comment on above: Urinary urgency Start: 08-04-2023 End: 08-04-2023 ambulatory MIAMI Molina [facility] Start: 08-04-2023 End: 08-04-2023 Office outpatient visit 25 minutes Shahbaz Alfonsong DO Work Phone: [facility] Comment on above: Morbid obesity ([facility]) (Primary Dx); Lumbar disc prolapse with compression radiculopathy; Left lateral epicondylitis; Essential hypertension; Spondylolisthesis, lumbar region; Pre-diabetes Start: 07-28-2023 Refill Shahbazevi Arthurlo ng DO Work Phone: [facility] Comment on above: Urinary urgency Start: 07-04-2023 Telephone encounter Shahbaz menjivar DO Work Phone: [facility] Start: 06-21-2023 End: 06-21-2023 ambulatory JOSIE MARTIN [facility] Start: 06-21-2023 End: 06-21-2023 Office outpatient visit 15 minutes Josie Martin [employer] QUALITY MANAGER-[employer] [facility] Comment on above: Lateral epicondyliti s of left elbow (Primary Dx) Start: 12-03-2021 End: 12-04-[address] SHAHBAZ MONK Facility:[facility] Start: 06-16-2021 End: 06-16-2021 ambulatory Kendy Patino Other [facility] Other Start: 06-16-2021 Office outpatient vi sit 15 minutes Kendy Patino [facility] Start: 05-21-2021 Encounter for preprocedural cardiovascular examination DR DOCTOR NGUYEN [facility] Start: 05-21-2021 Encounter for preprocedural laboratory examination DR DOCTOR NGUYEN [facility] Start: 05-15-2021 End: 05-16-[address] DOCTOR NGUYEN Facility:[facility] Start: 05-15-2021 End: 05-16-2021 Encounter for preprocedural laboratory examination DR DOCTOR NGUYEN Facility:[facility] Start: 02-19-2021 End: 02-19-[address] SHAHBAZ MONK Facility:[facility] Start: 11-23-2017 Ambulatory Christina Apodaca Fac ility:[facility] Start: 11-09-2017 Ambulatory Christina Apodaca Fac ility:[id number] Procedures Date Procedure Procedure Detail Performing Clinician Start: 08-30-2023 Follow-up visit Follow-up JOSIE MARTIN Start: 08-30-2023 Adult depression screening assessment Josie Martin [employer] QUAL[employer] MANAGER[employer] Work Phone: Start: 08-04-2023 Adult depression screening assessment Shahbaz Monk DO Work Phone: Start: 06-21-2023 Adult depression screening assessment Josie Martin [employer] QUALITY MANAGER-[employer] Work Phone: Plan of Treatment Date Care Activity Detail Author Start: 02-11-2030 DTaP,Tdap and Td Vac cines (3 - Td or Tdap) DTaP,Tdap and Td Vaccines (3 - Td or Tdap) [facility] Start: 08-29-2024 Adult BMI Screening Adult BMI Screen ing [facility] Start: 08-29-2024 Depression Screening Depression Scre ening [facility] Start: 08-29-2024 Tobacco Screening Tobacco Screening [facility] Start: 08-28-2024 Screening for malign ant neoplasm of colon Colon Cancer Screening 3 Year Cologuard [facility] Start: 08-04-2024 Adult BMI Screening Adult BMI Screen ing [facility] Start: 08-04-2024 Depression Screening Depression Scre ening [facility] Start: 08-04-2024 Tobacco Screening Tobacco Screening [facility] Start: 06-21-2024 Adult BMI Screening Adult BMI Screen ing [facility] Start: 06-21-2024 Depression Screening Depression Scre ening [facility] Start: 06-21-2024 Tobacco Screening Tobacco Screening [facility] Start: 02-12-2024 Influenza vaccination Influenza Vacc ine [facility] Start: 11-03-2023 End: 11-03-2023 Patient encounter procedure 11/03/2023 4:10 PM EDT Office Visit [facility] Internal Medicine - Family Medicine [address] [place] [address] Shahbaz Monk DO [address], [place] [address] [facility] Internal Medicine - Family Medicine Start: 10-10-2023 End: 10-10-2023 Patient encounter procedure 10/10/2023 4:00 PM EDT Office Visit [facility] Internal Medicine - Family Medicine [address] [place] [id number] Josie Martin, [employer] MA[employer]GER[employer] [address] [place] [address] [facility] Internal [facility] - Family Medicine Start: 09-11-2023 Influenza vaccination Influenza Vacc ine [facility] Comment on above: Postponed from 02/11 (Patient Refused) Start: 08-04-2023 End: 08-04-2023 Patient encounter procedure 08/04/2023 2:20 PM EST [facility] [address] [place] [id number] Shahbaz Monk DO [address] [place] [address] [facility] Start: 2023 Administration of varicella zoster vaccine Zoster (Shingles) Vaccine (1 of 2) [facility] Start: 02-11-2023 Influenza vaccination Influenza Vacc ine [facility] Start: 1991 Adult BMI Follow Up Plan Adult BMI Follow Up Plan [facility] Immunizations Immunization Date Immunization Notes Care Provider Fa cility 02-12-2020 diphtheria, tetanus toxoids and pertussis vaccine Josie Martin [employer] Work Phone: [facility] 02-12-2020 tetanus toxoid, redu jackson diphtheria toxoid, and acellular pertussis vaccine, adsorbed Josie Martin [employer] MA[employer] Work Phone: [facility] 02-03-2018 hepatitis B vaccine, adult dosage Josie Martin [employer] MANAGER[employer] Work Phone: [facility] 09-07-2017 hepatitis B vaccine, adult dosage Josie Martin [employer] MA[employer] Work Phone: [facility] 08-04-2017 hepatitis B vaccine, pediatric or pediatric/adolescent dosage Josie Martin [employer] MANA[employer] Work Phone: [facility] Payers Date Payer Category Payer Private Health Insurance [id number] 2023 Private Health Insurance [id number] 2012 Unknown [employer] [id number] 2012-Present [phone] [address] [place] [address] [id number] 1973 Unknown [id number] 1973 Unknown [id number] 1973 Unknown [id number] 1973 Unknown [id number] 1973 Unknown [id number] 1973 Unknown [id number] 1973 Unknown [id number] 1959 Unknown [id number] Social History Date Type Detail Facility Start: 03-07-2023 End: 05-03-2023 Sex Assigned At [facility] Start: 03-07-2023 Tobacco smoking stat us FLIS Ex-smoker [facility] Start: 06-13-1989 End: 09-11-2022 History of tobacco use Current smoker [facility] [employer] [facility] Start: 06-13-1989 End: 09-11-2022 History of tobacco use Cigarette Smoker [facility] Start: 03-07-2023 End: 08-30-2023 Cigarettes smoked current (pack per day) - Reported 0.5 [facility] Start: 03-07-2023 Tobacco use and exposure Smokeless tobacco non-user [facility] Start: 06-21-2023 End: 08-04-2023 Alcohol intake Current drinker of alcohol (finding) [facility] Has the [employer], oil, or water company threatened to shut off services in your home in past 12Mo No [facility] Are you now , , , , never or living with a partner? [facility] How often to you hav e a drink containing alcohol? 2-4 times a month [facility] How many standard drinks containing alcohol do you have on a typical day? 1 or 2 [facility] How often do you hav e 6 or more drinks on 1 occasion? Never [facility] How hard is it for y ou to pay for the very basics like food, housing, medical care, and heating Not hard at all [facility] Do you feel stress - tense, restless, nervous, or anxious, or unable to sleep at night because your mind is troubled all the time - these days [OSQ] Not at all [facility] Start: 03-02-2022 Alcohol Comment Occasional 6 p ack once a month [facility] Start: 1975 Sex Assigned At Not on file [facility] Start: 08-30-2023 Alcohol intake Ex-drinker (finding) [facility] Clinical Notes 02-19-2021 to 09-12-2023 Shahbaz Monk DO - 09/12/2023 11:04 AM EDTMyudy Martin APRN-DIXON - 08/30/2023 4:00 PM EDTTelephone Encounter - Kym ParksFUNMILAYO - 08/13/2023 5:05 PM EST Note Date & Type Note Facility 09-12-2023 History of Presen t illness Narrative Semaglutide 0.6 mg once a week sent in to [facility] documented in this encounter [facility] 08-30-2023 History of Presen t illness Narrative Subjective Patient ID: Jorgito Harry is a 48 y.o. male. He was admitted on 08/23/23 for intractable nausea, vomiting and diarrhea with MIK (creatinine was 4.23, BUN 66) and hyperkalemia and hypomagnesmia and dehydration His symptoms had started 4 days prior to this This improved with IV hydration and was suspected to be due to the initiation of wegovy He feels he was getting dehydrated prior to this as he had a sinus infection and was taking nyquil and sleeping a lot and was not drinking but took the wegovy His last dose of wegovy was 08/21/23 He is feeling much better now and did not have any rebound symptoms once discharged He has not yet resumed his blood pressure medications, he has been monitoring his blood pressure and it has not yet been over 140 systolic Follow-up The following portions of the patient's history were reviewed and updated as appropriate: allergies, current medications, past family history, past medical history, past social history, past surgical history, problem list, and medication reconciliation was completed including current medication and post discharge medication. Review of Systems Constitutional: Negative. HENT: Negative. Eyes: Negative. Respiratory: Negative. Cardiovascular: Negative. Gastrointestinal: Negative. Endocrine: Negative. Genitourinary: Negative. Musculoskeletal: Negative. Skin: Negative. Allergic/Immunologic: Negative. Hematological: Negative. Psychiatric/Behavioral: Negative. Objective Physical Exam Vitals and nursing note reviewed. Constitutional: Appearance: He is obese. HENT: Head: Normocephalic. Eyes: Conjunctiva/sclera: Conjunctivae normal. Neck: Vascular: No carotid bruit. Cardiovascular: Rate and Rhythm: Normal rate and regular rhythm. Heart sounds: Normal heart sounds. No murmur heard. Pulmonary: Effort: Pulmonary effort is normal. Breath sounds: Normal breath sounds. Musculoskeletal: Cervical back: Neck supple. Right lower leg: No edema. Left lower leg: No edema. Lymphadenopathy: Cervical: No cervical adenopathy. Skin: General: Skin is warm and dry. Capillary Refill: Capillary refill takes less than 2 seconds. Neurological: Mental Status: He is alert and oriented to person, place, and time. Psychiatric: Mood and Affect: Mood normal. Behavior: Behavior normal. Thought Content: Thought content normal. Judgment: Judgment normal. Assessment/Plan Jorgito was seen today for follow-up. Diagnoses and all orders for this visit: Acute kidney injury (nontraumatic) ([facility]) - Comprehensive metabolic panel; Future Hypomagnesemia - Magnesium; Future Essential hypertension Morbid obesity ([facility]) He looks good today and his labs nearly normalized prior to being discharged on the 08/24 Will recheck his cmp and mg levels today He would like to restart the wegovy as he did not have any symptoms until 5 days after when he was not drinking and had the sinus infection It is very difficult timing domingo to know for sure If his lab work has truly normalized he could try another dose 09/03 but needs to very attentive to hydration especially with electrolyte containing solution, he is agreeable to this Also he is continuing to monitor his bp once daily, he has been checking his bp when he gets home from work and it has not been over 140 systolic Further instruction given today that if his systolic is over 140 start with edarybi first , then if the next day it remains over 140 start the metoprolol, if any problems with either medicaiton, call back, see him back in office in about 1 month EDI Berg 08/30/23 1710 [facility]-13-2023 Miscellaneous Notes Formattin g of this note might be different from the original. I called pt and he is taking it.He has a 90 supply everything good he is receiving it through [employer] documented [facility] 08-13-2023 Telephone encount er Note I called pt and he is taking it.He has a 90 supply everything good he is receiving it through [employer] [facility] 08-04-2023 History of Presen t illness Narrative Subjective Patient ID: Jorgito Harry is a 48 y.o. male. Lizandro presents for recheck of obesity. He took phentermine but it didn't work well. He is interested in other agents like semaglutide. He would like to try it. He is also having back pain which is worse since he has gained weight. He has used tramadol and hydrocodone in the past and hydrocodone worked better. He would like a refill. 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 He is taking celebrex once a day and it helps some. He uses muscle relaxer as needed with mild improvement. It does help his sleep. He is still having pain in his left elbow. The prednisone helped mildly. He is using a forearm brace. He works and that aggravates pain. He wonders what else he can do. The following portions of the patient's history were reviewed and updated as appropriate: allergies, current medications, past family history, past medical history, past social history, past surgical history, problem list, and medication reconciliation was completed including current medication and post discharge medication. Review of Systems Constitutional: Negative. Respiratory: Negative. Cardiovascular: Negative. Gastrointestinal: Negative. Musculoskeletal: Positive for arthralgias and back pain. Neurological: Negative. Hematological: Negative. Psychiatric/Behavioral: Negative. Objective Physical Exam Constitutional: General: He is not in acute distress. Appearance: Normal appearance. He is obese. HENT: Head: Normocephalic. Cardiovascular: Rate and Rhythm: Normal rate and regular rhythm. Pulses: Normal pulses. Heart sounds: Normal heart sounds. No murmur heard. Pulmonary: Effort: Pulmonary effort is normal. No respiratory distress. Breath sounds: Normal breath sounds. No wheezing, rhonchi or rales. Abdominal: General: Abdomen is flat. Palpations: Abdomen is soft. Tenderness: There is no abdominal tenderness. Musculoskeletal: Left elbow: No swelling, deformity, effusion or lacerations. Normal range of motion. Tenderness present in lateral epicondyle. Cervical back: Neck supple. Lumbar back: Tenderness and bony tenderness present. Decreased range of motion. Right lower leg: No edema. Left lower leg: No edema. Neurological: General: No focal deficit present. Mental Status: He is alert and oriented to person, place, and time. Sensory: No sensory deficit. Psychiatric: Mood and Affect: Mood normal. Behavior: Behavior normal. Assessment/Plan Jorgito was seen today for weight loss. Diagnoses and all orders for this visit: Morbid obesity (CMS-HCC) He is morbidly obese. He would benefit from weight loss. Diet, exercise and wt loss discussed. Will start semaglutide. Call in 3-4 weeks and if tolerating the dose will increase it. Lumbar disc prolapse with compression radiculopathy Increase celecoxib to 200 mg BID and renew hydrocodone prn pain. He is using a high risk medication with benefit and without side effects. The OARRS/MAPPS database was reviewed today and found to be appropriate. No indication of medication diversion, or non compliance. Left lateral epicondylitis Increase celecoxib 200 mg to BID. Continue forearm brace. Will do cortisone injection if no better. Essential hypertension BP at goal-continue current regimen Spondylolisthesis, lumbar region - celecoxib (CeleBREX) 200 mg capsule; Take 1 capsule (200 mg total) by mouth in the morning and 1 capsule (200 mg total) before bedtime. - HYDROcodone-acetaminophen (NORCO) 5-325 mg per tablet; Take 1 tablet by mouth every 8 (eight) hours as needed for pain for up to 7 days. Max Daily Amount: 3 tablets Pre-diabetes documented in this encounter [employer] 07-04-2023 Miscellaneous Notes Formattin g of this note might be different from the original. Soraya fitzgerald called requesting an Edarbi med refill however I dont see it as a listed med. Please advise. It was not going to be covered so I changed it to something else per patient's request. documented in this encounter [facility] 07-04-2023 Telephone encount er Note [facility] called requesting an Edarbi med refill however I dont see it as a listed med. Please advise. [facility] 07-04-2023 Telephone encount er Note It was not going to be covered so I changed it to something else per patient's request. [facility] 06-21-2023 History of Presen t illness Narrative Subjective Patient ID: Jorgito Harry is a 48 y.o. male. A few weeks before he started with pain in his left elbow then on he tried opening a can of cranberry sauce and he heard something pop in his elbow and developed increased pain and his left forearm swelled for a day He has not had any numbness or tingling The discomfort has been persistent however and now then pain is in his wrist and he is also getting swelling in his wrist on the anterior aspect He is experiencing difficulty with lifting but not gripping He has not taken anything for it He does however take tramadol and vicodin for his back but he only takes these sparingly and not in the last ten days The following portions of the patient's history were reviewed and updated as appropriate: allergies, current medications, past family history, past medical history, past social history, past surgical history, problem list, and medication reconciliation was completed including current medication and post discharge medication. Review of Systems Constitutional: Negative. HENT: Negative. Eyes: Negative. Respiratory: Negative. Cardiovascular: Negative. Gastrointestinal: Negative. Endocrine: Negative. Genitourinary: Negative. Musculoskeletal: Positive for arthralgias, back pain, joint swelling and myalgias. Skin: Negative. Allergic/Immunologic: Negative. Neurological: Negative. Hematological: Negative. Psychiatric/Behavioral: Negative. Objective Physical Exam Vitals and nursing note reviewed. Constitutional: Appearance: He is obese. Cardiovascular: Rate and Rhythm: Normal rate and regular rhythm. Heart sounds: Normal heart sounds. No murmur heard. Pulmonary: Effort: Pulmonary effort is normal. Breath sounds: Normal breath sounds. Musculoskeletal: Right upper arm: Normal. Left upper arm: Swelling present. Left elbow: No swelling. Tenderness present in lateral epicondyle. Comments: Tenderness just distal to lateral epicondyle, no swelling or redness, the tenderness extends along the forearm to the wrist and midforearm there is some soft tissue swelling that increases distally towards the wrist area There is discomfort with flexion of the wrist but not extension or rotation There is some discomfort with pronation and supination of the wrist and crepitus is noted as well Pulses at wrist both ulnar and radial are brisk and sensation is intact Skin: General: Skin is warm and dry. Neurological: Mental Status: He is alert and oriented to person, place, and time. Psychiatric: Thought Content: Thought content normal. Judgment: Judgment normal. Assessment/Plan Jorgito was seen today for elbow, arm wrist pain w/ lump on wrist. Diagnoses and all orders for this visit: Lateral epicondylitis of left elbow - predniSONE (DELTASONE) 20 mg tablet; Take twice daily for 7 days then once daily for 7 days He is already on celebrex for his osteoarthritis so will try adding a burst of steroids Will also have him ice the elbow twice daily for 20 min and wear and elbow brace at work If no improvement in 6 weeks would recommend injection with steroids with EDI Amaya 06/21/231723 documented in this encounter [facility] [employer] 12-04-2021 Note PROCEDURE: XR HEEL R T 2V HISTORY: Pain in right foot ; heel pain COMPARISON: None. FINDINGS: BONES 2 mm calcaneal plantar spur.:No fracture, acute abnormality, or significant arthropathy. SOFT TISSUES:No visible soft tissue swelling. EFFUSION:None visible. OTHER: Negative. IMPRESSION: 1. Tiny calcaneal plantar spur, 2 mm in size; uncertain clinical significance. 2. Otherwise unremarkable calcaneus. Electronically authenticated by: SALINA AGUILERA Date: 2021-12-04 09:07 [facility] 06-16-2021 Evaluation note Encounter Date Diagnosis Assessment Notes Jun, Contact with and (suspected) exposure to other viral communicable diseases (ICD-10 - Z20.828) Jun, Diarrhea, unspecified type (ICD-10 - R19.7) Drink plenty fluids, get plenty of rest. Follow-up with your family physician if no improvement in 2 to 3 days. Follow the preprinted instructions regarding diarrhea Jun, Other Additional time spent conducting pre-visit phone call, screening for symptoms, instructions on social distancing, application and removal of PPE, and cleaning of examination room, equipment and supplies was preformed. Patient education given for testing methodology and results. Patient care instructions given in writting by [facility] document. [facility] Other 09-09-2021 NotePROCEDURE: XR KNEE RT 4V or > HISTORY: Pain ; acute anterior knee pain without injury COMPARISON: None. FINDINGS: BONES:Tiny degenerative osteophytes along the articular margins of the patella. No fracture, dislocation, or bone lesion. No significant joint space narrowing or articular surface irregularities. SOFT TISSUES:No visible soft tissue swelling. EFFUSION:None visible. OTHER: Negative. IMPRESSION: 1. No acute bone abnormality. 2. Minimal early degenerative changes. Electronically authenticated by: SALINA AGUILERA Date: 2021-02-19 14:03[facility] note* Diagnosis Lateral epicondylitis of left elbow- Primary documented [facility]* Diagnosis Urinary urgency Urgency of urination documented in this encounter [facility]* Diagnosis Morbid obesity ([facility] Primary Morbid obesity Lumbar disc prolapse with compression radiculopathy Displacement of lumbar intervertebral disc without myelopathy Left lateral epicondylitis Essential hypertension Unspecified essential hypertension Spondylolisthesis, lumbar region Pre-diabetes Other abnormal glucose documented in this encounter [facility]* Diagnosis Urinary urgency Urgency of urination documented in this encounter [facility]* Diagnosis Essential (primary) hypertension Unspecified essential hypertension documented in this encounter [facility]* Diagnosis Acute kidney injury (nontraumatic) ([facility])- Primary Acute kidney failure, unspecified Hypomagnesemia Disorders of magnesium metabolism Essential hypertension Unspecified essential hypertension Morbid obesity ([facility]) Morbid obesity documented in this encounter [facility]* Diagnosis Hypomagnesemia- Primary Disorders of magnesium metabolism documented [facility] encounter [facility] System[facility] general Narrative - Reported* Type Description Date Medical History GERD Medical History arthritis Medical History NIDDM Medical History HTN Medical History hyperlipidemia Medical History sleep apnea Medical History depression Medical History deviated nasal septum Medical History chronic sinusitis Medical History COPD Surgical History Injection Tendon Origin/Inserti on Surgical History LASIK Surgical History total hip replacement, left Hospitalization History surgeries [facility] Other InstructionsNot on filedocumented [facility] filedocumented in [facility] filedocumented in this [facility] filedocumented in [facility] filedocumented in [facility] Summary Purpose Family History No Family History Records FoundNo Family History Records FoundNo Family History Records FoundNo Family History Records FoundNo Family History Records FoundNo Family History Records Found Advance Directives No Advanced Directives Records FoundNo Advanced Directives Records FoundNo Advanced Directives Records FoundNo Advanced Directives Records FoundNo Advanced Directives Records FoundNo Advanced Directives Records Found Additional Source Comments (unrecognized sect ion and content) No Status Records FoundNo Status Records FoundNo Status Records FoundNo Status Records FoundNo Status Records FoundNo Status Records Found INFORMATION SOURCE (unrecogn ized section and content) DATE CREATED AUTHOR 11/29/2017 [employer] DATE CREATED AUTHOR AUTHOR'S ORGANIZ ATION 12/02/2017 [facility] DATE CREATED AUTHOR AUTHOR'S ORGANIZ ATION 06/02/2021 [facility] DATE CREATED AUTHOR AUTHOR'S ORGANIZ ATION 12/09/2021 [facility] DATE CREATED AUTHOR AUTHOR'S ORGANIZ ATION 08/31/2023 [facility] DATE CREATED AUTHOR AUTHOR'S ORGANIZ ATION 09/01/2023 [facility] REASON FOR VISIT (unrecogniz ed section and content) Reason Comments elbow, arm wrist pain w/ lump on wrist Reason Comments Med Refill Reason Comments Weight Loss Reason Comments Follow-up From ER visit 3 days at [facility] Care Teams (unrecognized sec tion and content) Configuration Management Consultant Relationship Specialty Start Date End Date Shahbaz Monk DO [address], [place] [address] PCP - General Family Medicine 02/11/22 Configuration Management Consultant Relationship Specialty Start Date End Date Shahbaz Monk DO [address], [place] [address] [facility] 02/11/22 Configuration Management Consultant Relationship Specialty Start Date End Date Shahbaz Monk DO [address], [place] [address] [facility] 02/11/22 Configuration Management Consultant Relationship Specialty Start Date End Date Shahbaz Monk DO [address], [place] [address] [facility] 02/11/22 Configuration Management Consultant Relationship Specialty Start Date End Date Shahbaz Monk DO [address], [place] [address] [facility] 02/11/22 Configuration Management Consultant Relationship Specialty Start Date End Date Shahbaz Monk DO [address], [place] [address] [facility] 02/11/22 FOR RECORDS PERTAINING TO PATIENTS WHO ARE OR HAVE BEEN ENROLLED IN A CHEMICAL DEPENDENCY/SUBSTANCEABUSE PROGRAM, SOME INFORMATION MAY BE OMITTED. This clinical summary was aggregated from multiple sources. Caution should be exercised in using it in the provision of clinical care. This summary normalizes information from multiple sources, and as a consequence, information in this document may materially change the coding, format and clinical context of patient data. In addition, data may be omitted in some cases. CLINICAL DECISIONS SHOULD BE BASED ON THE PRIMARY CLINICAL RECORDS. [facility]. provides no warranty or guarantee of the accuracy or completeness of information in this document.
--- NOTE | 2023-09-26 20:24 | ED.NAVMDI1 ---
Documented by User: Shanice Chadwick 09/26/23 21:48 HPI - Nausea/Vomiting/Diarrhea General Chief complaint: Nausea/Vomiting/Diarrhea Stated complaint: General Weakness, Abdominal Pain Time Seen by Provider: 09/26/23 20:19 Source: patient Mode of arrival: walk-in History of Present Illness HPI Narrative: 48 year old male presents to the ED for N/V/D, generalized abd pain. Onset was early this morning. Reports two episodes of emesis. Denies fever, chills, urinary sx. Denies cough, congestion, CP, SOB, flank pain. He has hx MIK 08/2023 due to similar sx. He had a CT scan of the abdomen/pelvis 08/22/23 with the previous visit for N/V/D: IMPRESSION: 1. No acute or suspicious findings to account for patient's symptoms. 2. Cholelithiasis. 3. Nonobstructing right nephrolithiasis. 4. Mild colonic diverticulosis. 5. Osteonecrosis of right femoral head. No prior studies for comparison. Electronically authenticated by: SALINA AGUILERA Date: 08/22/2023 07:06 Related Data Home Medications ?Medication ?Instructions ?Recorded ?Confirmed atorvastatin 20 mg tablet 20 mg PO DAILY 08/22/23 08/22/23 azilsartan medoxomil 40 mg tablet 40 mg PO DAILY 08/22/23 08/22/23 (Edarbi) celecoxib 200 mg capsule 200 mg PO BID 08/22/23 08/22/23 fenofibrate 160 mg tablet 160 mg PO DAILY 08/22/23 08/22/23 metoprolol succinate 50 mg 50 mg PO DAILY 08/22/23 08/22/23 tablet,extended release 24 hr omeprazole 20 mg capsule,delayed 20 mg PO DAILY 08/22/23 08/22/23 release oxybutynin chloride 5 mg tablet 5 mg PO DAILY 08/22/23 08/22/23 Previous Rx's ?Medication ?Instructions ?Recorded hyoscyamine sulfate 0.125 mg 0.125 mg PO Q6H PRN dyspepsia #20 08/24/23 tablet (Levsin) tabs loperamide 2 mg capsule 2 mg PO Q4H PRN loose stool #24 08/24/23 (Anti-Diarrheal (loperamide)) caps ondansetron 4 mg disintegrating 4 mg PO Q8H PRN nausea and 08/24/23 tablet vomiting 4 days #20 tabs ondansetron 4 mg disintegrating 4 mg PO Q8H PRN nausea and 09/26/23 tablet vomiting 4 days #12 tabs Allergies Allergy/AdvReac Type Severity Reaction Status Date / Time No Known Drug Allergies Allergy Verified 08/22/23 05:50 Review of Systems ROS Constitutional Denies: fever or chills Ears, nose, mouth, and throat Denies: throat pain or neck pain Cardiovascular Denies: chest pain Respiratory Denies: shortness of breath or cough Gastrointestinal Reports: abdominal pain, nausea and diarrhea Genitourinary Denies: painful urination, urinary frequency, urinary urgency, difficulty urinating, change in urine stream or decreased urine ouput Musculoskeletal Denies: back pain or neck pain Integumentary/Breast Denies: rash or itching Neurological Denies: headache or dizziness [facility] Medical History (Updated 09/26/23 @ 23:27 by Chelsie Bello MD) GERD (gastroesophageal reflux disease) ?K21.9 - Gastro-esophageal reflux disease without esophagitis (ICD-10) OAB (overactive bladder) ?N32.81 - Overactive bladder (ICD-10) Hyperlipidemia ?E78.5 - Hyperlipidemia, unspecified (ICD-10) Prediabetes ?R73.03 - Prediabetes (ICD-10) HTN (hypertension) ?I10 - Essential (primary) hypertension (ICD-10) Cholelithiasis ?K80.20 - Calculus of gallbladder without cholecystitis without obstruction (ICD-10) Degenerative disc disease, lumbar ?M51.36 - Other intervertebral disc degeneration, lumbar region (ICD-10) Surgical History (Updated 08/22/23 @ 09:52 by Raegan Lopez) History of hip replacement ?Z96.649 - Presence of unspecified artificial hip joint (ICD-10) Family History (Updated 08/22/23 @ 09:55 by Raegan Lopez) Father Family history of CHF (congestive heart failure) Family history of COPD (chronic obstructive pulmonary disease) Family history of hypertension Family history of stroke Grandfather Family history of cancer Family history of hypertension Grandfather Family history of cancer Brother Family history of diabetes mellitus Family history of hypertension Social History (Updated 08/22/23 @ 09:54 by Raegan Lopez) Within the past year, how often did you have a drink containing alcohol: 2-4 times a month Within the past year, how many standard drinks containing alcohol did you have on a typical day: 1 or 2 Within the past year, how often did you have six or more drinks on one occasion: never Total score: 0 Score interpretation: A score less than 4 is consistent with normal alcohol consumption. Smoking status: Current every day smoker Do you use any of these nicotine containing products: vaping products Non-prescribed substance use: denies use Previous occupational history: [employer] Highest level of school completed/degree received: Associate degree: occupational, technical, vocational program Little interest or pleasure in doing things: not at all Feeling down, depressed, or hopeless: not at all Feel stressed/tense/nervous/anxious/difficulty sleeping: not at all Exam Constitutional Vital Signs, click to edit/add: Last Vital Signs Temp 98.1 F 09/26/23 20:17 Pulse 108 H 09/26/23 22:51 Resp 16 09/26/23 22:51 BP 115/88 09/26/23 22:51 Pulse Ox 98 09/26/23 22:51 O2 Del Method Room Air 09/26/23 22:51 HENMT Mouth: lip normal, tongue normal and moist mucous membranes abnormal (Dry) Throat: uvula midline Eye Common normals: conjunctivae normal and no scleral icterus Neck & C-Spine Common normals: supple and no meningeal signs Chest Chest: symmetrical chest wall rise Respiratory Common normals: normal respiratory effort, no use of accessory muscles and clear to auscultation bilaterally Effort & inspection: able to speak in complete sentences and symmetric chest movement Cardio Common normals: regular rhythm Rate: tachycardic GI Common normals: Normal to inspection, nondistended, normoactive bowel sounds present and soft to palpation Palpation: tender Details: LUQ Neuro Common normals: oriented x3 Sensorium/orientation: awake and alert Course Vital Signs Vital signs: Vital Signs Temperature 98.1 F 09/26/23 20:17 Pulse Rate 111 H 09/26/23 20:17 Respiratory Rate 18 09/26/23 20:17 Blood Pressure 136/88 09/26/23 20:17 Pulse Oximetry 97 09/26/23 20:17 Oxygen Delivery Method Room Air 09/26/23 20:17 Temperature 98.1 F 09/26/23 20:17 Pulse Rate 108 H 09/26/23 22:51 Respiratory Rate 16 09/26/23 22:51 Blood Pressure 115/88 09/26/23 22:51 Pulse Oximetry 98 09/26/23 22:51 Oxygen Delivery Method Room Air 09/26/23 22:51 MDM - Nausea/Vomiting/Diarrhea MDM Narrative Medical decision making narrative: WBC count was 11.6, BUN 20. Creatinine was 1.14. He was given IV fluids, medication for his symptoms. Care was resumed to Dr. Bello. See her dictation for further evaluation and treatment. Differential Diagnosis Differential diagnosis: Likely gastroenteritis, dehydration and other (MIK) Medical Records Attestation: I reviewed the patient's medical records. Lab Data Attestation: I reviewed the patient's lab results. Labs: Lab Results 09/26/23 09/26/23 Range/Units 20:28 21:45 WBC 11.6 H (4.0-11.0) 10^3/uL RBC 5.18 (4.70-6.10) 10^6/uL Hgb 16.2 (14.0-18.0) g/dL Hct 48.6 (42.0-54.0) % MCV 93.8 (80.0-94.0) fL MCH 31.3 (25.9-34.0) pg MCHC 33.3 (29.9-35.2) g/dL RDW 13.3 (11.0-15.0) % Plt Count 323 (150-450) 10^3/uL MPV 9.2 L (9.5-13.5) fL Neut % (Auto) 72.4 (43.0-75.0) % Lymph % (Auto) 15.6 L (20.5-60.0) % [place] % (Auto) 11.0 (1.7-12.0) % Eos % (Auto) 0.6 L (0.9-7.0) % Baso % (Auto) 0.1 L (0.2-2.0) % Neut # (Auto) 8.4 H (1.4-6.5) 10^3/uL Lymph # (Auto) 1.8 (1.2-3.8) 10^3/uL [place] # (Auto) 1.3 H (0.3-0.8) 10^3/uL Eos # (Auto) 0.1 (0.0-0.7) 10^3/uL Baso # (Auto) 0.0 (0.0-0.1) 10^3/uL Abs Immat Gran (auto) 0.03 (0.00-0.03) 10^3/uL Imm/Tot Granulo (auto) 0.3 (0.0-0.5) % Sodium 140 (136-145) mmol/L Potassium 3.9 (3.5-5.1) mmol/L Chloride 105 (98-107) mmol/L Carbon Dioxide 26.2 (21.0-32.0) mmol/L Anion Gap 12.7 BUN 20.0 H (7.0-18.0) mg/dL Creatinine 1.14 (0.70-1.30) mg/dL Est GFR ( Amer) >60 (>=60) Est GFR (Non-Af Amer) >60 (>=60) BUN/Creatinine Ratio 17.5 Glucose 94 (74-106) mg/dL Calcium 10.0 (8.5-10.1) mg/dL Total Bilirubin 0.8 (0.2-1.0) mg/dL AST 26 (15-37) U/L ALT 46 (16-63) U/L Alkaline Phosphatase 62 (46-116) U/L Total Protein 7.9 (6.4-8.2) g/dL Albumin 4.2 (3.4-5.0) g/dL Globulin 3.7 g/dL Albumin/Globulin Ratio 1.1 Lipase 41.0 (16.0-77.0) U/L Urine Color Yellow (YELLOW) Urine Clarity Clear (CLEAR) Urine pH 5.5 (5.0-9.0) Ur Specific [place] >=1.030 A (1.005-1.025) Urine Protein Negative (NEG/TRACE) mg/dL Urine Glucose (UA) Negative (NEGATIVE) mg/dL Urine Ketones Negative (NEGATIVE) mg/dL Urine Occult Blood Negative (NEGATIVE) Urine Nitrite Negative (NEGATIVE) Urine Bilirubin Negative (NEGATIVE) Urine Urobilinogen 0.2 (0.2-1.0) EU/dL Ur Leukocyte Esterase Negative (NEGATIVE) Discharge Plan Discharge Stand Alone Forms: Portal Instructions Chief Complaint: Nausea/Vomiting/Diarrhea Clinical Impression: Nausea vomiting and diarrhea, Medication side effects Patient Disposition: Home, Self-Care Time of Disposition Decision: 23:27 Condition: Good Mode of Transportation: Private Vehicle Prescriptions / Home Meds: New ondansetron 4 mg tablet,disintegrating 4 mg PO Q8H PRN (Reason: nausea and vomiting) 4 Days Qty: 12 0RF No Action atorvastatin 20 mg tablet 20 mg PO DAILY Edarbi 40 mg tablet 40 mg PO DAILY Hold Instructions: Until follow up with PCP to discuss celecoxib 200 mg capsule 200 mg PO BID fenofibrate 160 mg tablet 160 mg PO DAILY metoprolol succinate 50 mg tablet extended release 24 hr 50 mg PO DAILY Hold Instructions: Until follow up with PCP to discuss oxybutynin chloride 5 mg tablet 5 mg PO DAILY omeprazole 20 mg capsule,delayed release(DR/EC) 20 mg PO DAILY ondansetron 4 mg tablet,disintegrating 4 mg PO Q8H PRN (Reason: nausea and vomiting) 4 Days Qty: 20 0RF loperamide [Anti-Diarrheal (loperamide)] 2 mg capsule 2 mg PO Q4H PRN (Reason: loose stool) Qty: 24 0RF Rx Instructions: do not exceed 16 mg per 24 hrs hyoscyamine sulfate [Levsin] 0.125 mg tablet 0.125 mg PO Q6H PRN (Reason: dyspepsia) Qty: 20 0RF Print Language: Japanese Instructions: Acute Nausea and Vomiting (ED), Acute Diarrhea (ED), Abdominal Pain (ED), Adverse Drug Reaction (ED) Referrals: OSMAR MANCINI [Primary Care Provider] - 1 week Documented by User: Chelsie Bello MD 09/26/23 23:31 HPI - Nausea/Vomiting/Diarrhea General Chief complaint: Nausea/Vomiting/Diarrhea Stated complaint: General Weakness, Abdominal Pain Time Seen by Provider: 09/26/23 20:19 Related Data Home Medications ?Medication ?Instructions ?Recorded ?Confirmed atorvastatin 20 mg tablet 20 mg PO DAILY 08/22/23 08/22/23 azilsartan medoxomil 40 mg tablet 40 mg PO DAILY 08/22/23 08/22/23 (Edarbi) celecoxib 200 mg capsule 200 mg PO BID 08/22/23 08/22/23 fenofibrate 160 mg tablet 160 mg PO DAILY 08/22/23 08/22/23 metoprolol succinate 50 mg 50 mg PO DAILY 08/22/23 08/22/23 tablet,extended release 24 hr omeprazole 20 mg capsule,delayed 20 mg PO DAILY 08/22/23 08/22/23 release oxybutynin chloride 5 mg tablet 5 mg PO DAILY 08/22/23 08/22/23 Previous Rx's ?Medication ?Instructions ?Recorded hyoscyamine sulfate 0.125 mg 0.125 mg PO Q6H PRN dyspepsia #20 08/24/23 tablet (Levsin) tabs loperamide 2 mg capsule 2 mg PO Q4H PRN loose stool #24 08/24/23 (Anti-Diarrheal (loperamide)) caps ondansetron 4 mg disintegrating 4 mg PO Q8H PRN nausea and 08/24/23 tablet vomiting 4 days #20 tabs ondansetron 4 mg disintegrating 4 mg PO Q8H PRN nausea and 09/26/23 tablet vomiting 4 days #12 tabs Allergies Allergy/AdvReac Type Severity Reaction Status Date / Time No Known Drug Allergies Allergy Verified 08/22/23 05:50 PFSH PFSH Medical History (Updated 09/26/23 @ 23:27 by Chelsie Bello MD) GERD (gastroesophageal reflux disease) ?K21.9 - Gastro-esophageal reflux disease without esophagitis (ICD-10) OAB (overactive bladder) ?N32.81 - Overactive bladder (ICD-10) Hyperlipidemia ?E78.5 - Hyperlipidemia, unspecified (ICD-10) Prediabetes ?R73.03 - Prediabetes (ICD-10) HTN (hypertension) ?I10 - Essential (primary) hypertension (ICD-10) Cholelithiasis ?K80.20 - Calculus of gallbladder without cholecystitis without obstruction (ICD-10) Degenerative disc disease, lumbar ?M51.36 - Other intervertebral disc degeneration, lumbar region (ICD-10) Surgical History (Updated 08/22/23 @ 09:52 by Raegan Lopez) History of hip replacement ?Z96.649 - Presence of unspecified artificial hip joint (ICD-10) Family History (Updated 08/22/23 @ 09:55 by Raegan Lopez) Father Family history of CHF (congestive heart failure) Family history of COPD (chronic obstructive pulmonary disease) Family history of hypertension Family history of stroke Grandfather Family history of cancer Family history of hypertension Grandfather Family history of cancer Brother Family history of diabetes mellitus Family history of hypertension Social History (Updated 08/22/23 @ 09:54 by Raegan Lopez) Within the past year, how often did you have a drink containing alcohol: 2-4 times a month Within the past year, how many standard drinks containing alcohol did you have on a typical day: 1 or 2 Within the past year, how often did you have six or more drinks on one occasion: never Total score: 0 Score interpretation: A score less than 4 is consistent with normal alcohol consumption. Smoking status: Current every day smoker Do you use any of these nicotine containing products: vaping products Non-prescribed substance use: denies use Previous occupational history: [employer] Highest level of school completed/degree received: Associate degree: occupational, technical, vocational program Little interest or pleasure in doing things: not at all Feeling down, depressed, or hopeless: not at all Feel stressed/tense/nervous/anxious/difficulty sleeping: not at all Exam Constitutional Vital Signs, click to edit/add: Last Vital Signs Temp 98.1 F 09/26/23 20:17 Pulse 108 H 09/26/23 22:51 Resp 16 09/26/23 22:51 BP 115/88 09/26/23 22:51 Pulse Ox 98 09/26/23 22:51 O2 Del Method Room Air 09/26/23 22:51 Course Vital Signs Vital signs: Vital Signs Temperature 98.1 F 09/26/23 20:17 Pulse Rate 111 H 09/26/23 20:17 Respiratory Rate 18 09/26/23 20:17 Blood Pressure 136/88 09/26/23 20:17 Pulse Oximetry 97 09/26/23 20:17 Oxygen Delivery Method Room Air 09/26/23 20:17 Temperature 98.1 F 09/26/23 20:17 Pulse Rate 108 H 09/26/23 22:51 Respiratory Rate 16 09/26/23 22:51 Blood Pressure 115/88 09/26/23 22:51 Pulse Oximetry 98 09/26/23 22:51 Oxygen Delivery Method Room Air 09/26/23 22:51 MDM - Nausea/Vomiting/Diarrhea MDM Narrative Medical decision making narrative: WBC count was 11.6, BUN 20. Creatinine was 1.14. He was given IV fluids, medication for his symptoms. Care was resumed to Dr. Bello. See her dictation for further evaluation and treatment. This 48-year-old male was seen and evaluated in conjunction with the nurse practitioner. He presents for evaluation of diarrhea that started earlier today. The patient has been on GLP 1 injection weight loss medications and has been experiencing gastrointestinal side effects from these medications. His side effects have been diarrhea. He was recently admitted for dehydration and acute kidney injury after having diarrhea for several days. He was told that if his diarrhea should return that he should come to the emergency department sooner rather than later to avoid another episode of renal insufficiency. The patient had an IV placed and was given IV fluids, And Zofran, Bentyl and Pepcid. On reevaluation he was feeling somewhat better and tolerating clear liquids. He requested something for pain in his rectal area due to the elevated diarrhea that he has been having. His labs are reviewed. He is not in kidney failure today. He has BUN is 20 and he has normal creatinine. His hemoglobin is stable and urine is clean. I discussed with him that he may need to refrain from taking these medications in the future as the side effects may be too dangerous for him. He agrees with this and will discuss this with his family physician. He has been taking Imodium for his diarrhea without significant improvement. He will be discharged home with Rx for bentyl and zofran Lab Data Labs: Lab Results 09/26/23 09/26/23 Range/Units 20:28 21:45 WBC 11.6 H (4.0-11.0) 10^3/uL RBC 5.18 (4.70-6.10) 10^6/uL Hgb 16.2 (14.0-18.0) g/dL Hct 48.6 (42.0-54.0) % MCV 93.8 (80.0-94.0) fL MCH 31.3 (25.9-34.0) pg MCHC 33.3 (29.9-35.2) g/dL RDW 13.3 (11.0-15.0) % Plt Count 323 (150-450) 10^3/uL MPV 9.2 L (9.5-13.5) fL Neut % (Auto) 72.4 (43.0-75.0) % Lymph % (Auto) 15.6 L (20.5-60.0) % [place] % (Auto) 11.0 (1.7-12.0) % Eos % (Auto) 0.6 L (0.9-7.0) % Baso % (Auto) 0.1 L (0.2-2.0) % Neut # (Auto) 8.4 H (1.4-6.5) 10^3/uL Lymph # (Auto) 1.8 (1.2-3.8) 10^3/uL [place] # (Auto) 1.3 H (0.3-0.8) 10^3/uL Eos # (Auto) 0.1 (0.0-0.7) 10^3/uL Baso # (Auto) 0.0 (0.0-0.1) 10^3/uL Abs Immat Gran (auto) 0.03 (0.00-0.03) 10^3/uL Imm/Tot Granulo (auto) 0.3 (0.0-0.5) % Sodium 140 (136-145) mmol/L Potassium 3.9 (3.5-5.1) mmol/L Chloride 105 (98-107) mmol/L Carbon Dioxide 26.2 (21.0-32.0) mmol/L Anion Gap 12.7 BUN 20.0 H (7.0-18.0) mg/dL Creatinine 1.14 (0.70-1.30) mg/dL Est GFR ( Amer) >60 (>=60) Est GFR (Non-Af Amer) >60 (>=60) BUN/Creatinine Ratio 17.5 Glucose 94 (74-106) mg/dL Calcium 10.0 (8.5-10.1) mg/dL Total Bilirubin 0.8 (0.2-1.0) mg/dL AST 26 (15-37) U/L ALT 46 (16-63) U/L Alkaline Phosphatase 62 (46-116) U/L Total Protein 7.9 (6.4-8.2) g/dL Albumin 4.2 (3.4-5.0) g/dL Globulin 3.7 g/dL Albumin/Globulin Ratio 1.1 Lipase 41.0 (16.0-77.0) U/L Urine Color Yellow (YELLOW) Urine Clarity Clear (CLEAR) Urine pH 5.5 (5.0-9.0) Ur Specific [place] >=1.030 A (1.005-1.025) Urine Protein Negative (NEG/TRACE) mg/dL Urine Glucose (UA) Negative (NEGATIVE) mg/dL Urine Ketones Negative (NEGATIVE) mg/dL Urine Occult Blood Negative (NEGATIVE) Urine Nitrite Negative (NEGATIVE) Urine Bilirubin Negative (NEGATIVE) Urine Urobilinogen 0.2 (0.2-1.0) EU/dL Ur Leukocyte Esterase Negative (NEGATIVE) Discharge Plan Discharge Stand Alone Forms: Portal Instructions Chief Complaint: Nausea/Vomiting/Diarrhea Clinical Impression: Nausea vomiting and diarrhea, Medication side effects Patient Disposition: Home, Self-Care Time of Disposition Decision: 23:27 Condition: Good Mode of Transportation: Private Vehicle Prescriptions / Home Meds: New ondansetron 4 mg tablet,disintegrating 4 mg PO Q8H PRN (Reason: nausea and vomiting) 4 Days Qty: 12 0RF No Action atorvastatin 20 mg tablet 20 mg PO DAILY Edarbi 40 mg tablet 40 mg PO DAILY Hold Instructions: Until follow up with PCP to discuss celecoxib 200 mg capsule 200 mg PO BID fenofibrate 160 mg tablet 160 mg PO DAILY metoprolol succinate 50 mg tablet extended release 24 hr 50 mg PO DAILY Hold Instructions: Until follow up with PCP to discuss oxybutynin chloride 5 mg tablet 5 mg PO DAILY omeprazole 20 mg capsule,delayed release(DR/EC) 20 mg PO DAILY ondansetron 4 mg tablet,disintegrating 4 mg PO Q8H PRN (Reason: nausea and vomiting) 4 Days Qty: 20 0RF loperamide [Anti-Diarrheal (loperamide)] 2 mg capsule 2 mg PO Q4H PRN (Reason: loose stool) Qty: 24 0RF Rx Instructions: do not exceed 16 mg per 24 hrs hyoscyamine sulfate [Levsin] 0.125 mg tablet 0.125 mg PO Q6H PRN (Reason: dyspepsia) Qty: 20 0RF Print Language: Japanese Instructions: Acute Nausea and Vomiting (ED), Acute Diarrhea (ED), Abdominal Pain (ED), Adverse Drug Reaction (ED) Referrals: OSMAR MANCINI [Primary Care Provider] - 1 week
[2023-09-26 20:34] LABS: Basophils Percent Auto 0.1 % (0.2-2.0); Eosinophils Absolute Auto 0.1 10^3/uL (0.0-0.7); Eosinophils Percent Auto 0.6 % (0.9-7.0); Hematocrit 48.6 % (42.0-54.0); Hemoglobin 16.2 g/dL (14.0-18.0); Immature Granulocytes Abs Auto 0.03 10^3/uL (0.00-0.03); Immature Granulocytes Pct Auto 0.3 % (0.0-0.5); Lymphocytes Absolute Auto 1.8 10^3/uL (1.2-3.8); Lymphocytes Percent Auto 15.6 % (20.5-60.0); Mean Corpuscular HGB Conc 33.3 g/dL (29.9-35.2); Mean Corpuscular Hemoglobin 31.3 pg (25.9-34.0); Mean Corpuscular Volume 93.8 fL (80.0-94.0); Mean Platelet Volume 9.2 fL (9.5-13.5); Monocytes Absolute Auto 1.3 10^3/uL (0.3-0.8); Neutrophils Absolute Auto 8.4 10^3/uL (1.4-6.5); Neutrophils Percent Auto 72.4 % (43.0-75.0); Platelet Count 323 10^3/uL (150-450); Red Blood Count 5.18 10^6/uL (4.70-6.10); Red Cell Distribution Width 13.3 % (11.0-15.0); White Blood Count 11.6 10^3/uL (4.0-11.0)
[2023-09-26] MEDS: ONDANSETRON PF 4 MG/2 ML VIAL IV (20:46)
[2023-09-26] MEDS: 0.9 % SODIUM CHLORIDE 1,000 ML 999 ML IV (20:46)
[2023-09-26] MEDS: FAMOTIDINE/PF 20 MG/2 ML VIAL IV (20:46)
[2023-09-26 20:51] LABS: Alanine Aminotransferase 46 U/L (16-63); Albumin Globulin Ratio 1.1; Albumin Level 4.2 g/dL (3.4-5.0); Alkaline Phosphatase 62 U/L (46-116); Anion Gap 12.7; Aspartate Amino Transferase 26 U/L (15-37); BUN Creatinine Ratio 17.5; Bilirubin Total 0.8 mg/dL (0.2-1.0); Carbon Dioxide 26.2 mmol/L (21.0-32.0); Chloride 105 mmol/L (98-107); Estimated GFR (African America >60 (>=60); Estimated GFR (Non-African Ame >60 (>=60); Globulin 3.7 g/dL; Glucose 94 mg/dL (74-106); Potassium 3.9 mmol/L (3.5-5.1); Sodium 140 mmol/L (136-145); Total Protein 7.9 g/dL (6.4-8.2)
[2023-09-26 22:04] LABS: Bilirubin Urine NEGATIVE (NEGATIVE); Blood Urine NEGATIVE (NEGATIVE); Clarity Urine CLEAR (CLEAR); Color Urine YELLOW (YELLOW); Glucose Urine UA NEGATIVE (NEGATIVE); Ketones Urine NEGATIVE (NEGATIVE); Leukocyte Esterase Urine NEGATIVE (NEGATIVE); Nitrite Urine NEGATIVE (NEGATIVE); Protein Urine NEGATIVE (NEG/TRACE); Specific Gravity Urine >=1.030 (1.005-1.025); Urobilinogen Urine 0.2 EU/dL (0.2-1.0); pH Urine 5.5 (5.0-9.0)
[2023-09-26 22:15] LABS: Urine Microscopic Indicated NO
[2023-09-26] MEDS: DICYCLOMINE HCL 20 MG/2 ML VIAL IM (22:19)
[2023-09-26] MEDS: ACETAMINOPHEN 325 MG TABLET 650 MG PO (22:50)
[2023-09-26 22:51] VITALS: BP 115/88; PULSE 108; O2SAT 98
[2023-09-26] MEDS: 0.9 % SODIUM CHLORIDE 1,000 ML 1000 ML IV (23:28)
[2023-09-26 23:29] VITALS: BP 124/77; PULSE 97; O2SAT 97
== END 2023-09-27 00:32 | disposition home or self-care (01) ==
PROVIDERS: Nurse Practitioner Family; Emergency Provider Emergency Medicine; PCP Family Medicine
DX: R11.2 Nausea with vomiting, unspecified (principal); R19.7 Diarrhea, unspecified; T50.905A Adverse effect of unspecified drugs, medicaments and biological substances, initial encounter; K21.9 Gastro-esophageal reflux disease without esophagitis; N32.81 Overactive bladder; E78.5 Hyperlipidemia, unspecified; R73.03 Prediabetes; I10 Essential (primary) hypertension; M51.36 Other intervertebral disc degeneration, lumbar region; Z96.649 Presence of unspecified artificial hip joint; F17.290 Nicotine dependence, other tobacco product, uncomplicated; Z79.899 Other long term (current) drug therapy
CPT/HCPCS: 36415; 80053; 81003; 83690; 85025; 96361; 96372; 96374; 96375; 99284; J0500

== ENCOUNTER 2024-01-08 22:45 | Emergency (ER) | payer OTHER, SELFPAY ==
[2024-01-08 22:52] VITALS: BP 132/99; PULSE 110; TEMP 37.2; O2SAT 97; BMI 37.0
--- OUTSIDE RECORDS SUMMARY | 2024-01-08 22:52 | XMS_ITS | CCD ---
Author Organization [facility] Care Team Providers Care Residential Door Installer Name Role Phone Christina Apodaca Unavailable Unavailable Yandel Garcia Unavailable Unavailab estefani Garcia, Yandel Martino Unavailable Unavailab Christina Smith Unavailable Unavailable Yandel Garcia Unavailable Unavailab Kendy Vázquez Unavailable FURMEL, DR SHAHBAZ Auguste Primary Care Unavailable REINECK, DR MONIK Auguste Admitting Unavailabl e REINECK, DR MONIK Auguste Attending Unavailabl e ZIEBER, DR SALINA Loepz Consulting Unavailable DODGEADARSH Consulting Unavailable FURLONG, DR SHAHBAZ Auguste Admitting [...] Shahbaz PERKINS Primary Care Provider JOSIE MARTIN Referring Unavailable FURLOSHAHBAZ QUINTERO Primary Care Unavailable JOSIE MARTIN Attending Unavailable SHAHBAZ MONK Referring Unavailable FURLONGSHAHBAZ Primary Care Unavailable JOSIE MARTIN Attending Unavailable FURLOSHAHBAZ QUINTERO Referring Unavailable FURLONGSHAHBAZ Primary Care Unavailable JOSIE MARTIN Attending Unavailable SHAHBAZ MONK Referring Unavailable FURLONGSHAHBAZ Primary Care Unavailable FURSHAHBAZ LEAL Attending Unavailable SHAHBAZ MONK Referring Unavailable FURLONGSHAHBAZ Primary Care Unavailable FURLONGSHAHBAZ Attending Unavailable FURLONGSHAHBAZ Referring Unavailable FURLONG, SHAHBAZ Auguste Primary Care Unavailable Medications Current Medications Medication [...] Proliferator Receptor alpha Agonist Start: 02-02-2023 End: 03-01-2024 take 1 tablet by mouth once daily [...] tablet (10 sources) Opioid Agonist Start: 06-22-19 23 take 1 tablet by mouth four times daily as needed for pain traMADoL (ULTRAM) 50 mg tablet Indications: Degeneration of lumbar intervertebral disc Take 1 tablet (50 mg total) by mouth 4 (four) times a day as needed for pain. 28 tablet 0 06/22/2022 Active valsartan 160 mg oral tablet (2 sources) Angiotensin 2 Receptor Luiza Start: 05-19-20 23 take 1 tablet by mouth in the [...] Active Problems Problem Classification Problem Date Documented Da te Episodic/Chronic Disorders of lipid metabolism (10 sources) Hypercholesterolemia; Translations: [Pure hypercholesterolemia, unspecified] Onset: 9 03-02-2022 Chronic Esophageal disorders (10 sources) Gastroesophageal reflux disease; Translations: [Gastro-esophageal reflux disease without esophagitis] Onset: 9 03-02-2022 Chronic Essential hypertension (14 sources) Essential hypertension; Translations: [Essential (primary) hypertension] Onset: 9 03-02-2022 Chronic Genitourinary symptoms and ill-defined conditions (2 sources) Urgent desire to urinate; Translations: [Urgency of urination] 07-28-2023 Episodic Osteoarthritis (10 sources) Osteoarthritis; Translations: [Unspecified osteoarthritis, unspecified site] Onset: 2 03-02-2022 Chronic Other acquired deformities (1 source) Lumbar spondylolisthesis; Translations: [Spondylolisthesis, lumbar region] 08-04-2023 Episodic Other and unspecified benign neoplasm (1 source) Benign lipomatous neoplasm, unspecified; Translations: [Benign lipomatous neoplasm, unspecified] Onset: 4 Episodic Other connective tissue disease (1 source) Presence of unspecified artificial hip joint; Translations: [PRESENCE UNS ARTIFICIAL HIP JOINT] Onset: 1 Chronic Other connective tissue disease (4 sources) Pain in right foot; Translations: [PAIN IN RIGHT FOOT] Onset: 2 Episodic Other connective tissue disease (1 source) Calcaneal spur, right foot; Translations: [CALCANEAL SPUR RIGHT FOOT] Onset: 2 Episodic Other connective tissue disease (2 sources) Lateral epicondylitis of left humerus; Translations: [Lateral epicondylitis, left elbow] 06-21-2023 Episodic Other gastrointestinal disorders (1 source) Abdominal distension (gaseous); Translations: [Abdominal distension (gaseous)] Onset: 4 Episodic Other nutritional; endocrine; and metabolic disorders (10 sources) Severe obesity; Translations: [Morbid (severe) obesity due to excess calories] Onset: 3 04-07-2023 Chronic Other nutritional; endocrine; and metabolic disorders (12 sources) Morbid obesity; Translations: [Morbid (severe) obesity due to excess calories] Onset: 9 Resolved: 3 04-07-2023 Chronic Other nutritional; endocrine; and metabolic disorders (4 sources) Hypomagnesemia; Translations: [Hypomagnesemia] Onset: 4 08-30-2023 Chronic Other nutritional; endocrine; and metabolic disorders (2 sources) Hypomagnesemia; Translations: [Hypomagnesemia] Onset: 4 Chronic Other nutritional; endocrine; and metabolic disorders (1 source) Body mass index (BMI) 39.0-39.9, adult; Translations: [Body mass index (BMI) 39.0-39.9, adult] Onset: 3 Chronic Other nutritional; endocrine; and metabolic disorders (1 source) Morbid (severe) obesity due to excess calories; Translations: [Morbid (severe) obesity due to excess calories] Onset: 4 Chronic Other upper respiratory infections (1 source) Chronic sinusitis, unspecified; Translations: [Chronic sinusitis, unspecified] Onset: 8 Chronic Spondylosis; intervertebral disc disorders; other back problems (10 sources) Degeneration of lumbar intervertebral disc; Translations: [Other intervertebral disc degeneration, lumbar region] Onset: 9 03-02-2022 Chronic Substance-related disorders (11 sources) Nicotine dependence, cigarettes, uncomplicated; Translations: [Cigarette smoker ] Onset: 0 03-02-2022 Chronic Unclassified (2 sources) Chronic sinusitis, unspecified / J32.9(ICD-10) Onset: 8 Unclassified (1 source) elbow, arm wrist pain w/ lump on wrist Onset: 4 Past or Other Problems Problem Classification Problem Date Documented Da te Episodic/Chronic Acute and unspecified renal failure (3 sources) Acute nontraumatic kidney injury; Translations: [Acute kidney failure, unspecified] Onset: 4 08-30-2023 Episodic Diabetes mellitus without complication (12 sources) Prediabetes; [...] level; Translations: [Spondylolisthesis, lumbosacral region] Episodic Other acquired deformities (1 source) Spondylolisthesis, lumbar region; Translations: [Spondylolisthesis, lumbar region] Onset: 4 Episodic Other aftercare (1 source) Other long term care phlebotomist (current) drug therapy; Translations: [OTH ALF CURRENT DRUG THERAPY] Onset: 1 Episodic Other connective tissue disease (10 sources) Iliotibial band friction syndrome; Translations: [Iliotibial band syndrome, unspecified leg] Onset: 2 03-02-2022 Episodic Other connective tissue disease (1 source) Lateral epicondylitis, left elbow; Translations: [Lateral epicondylitis, left elbow] Onset: 4 Episodic Other gastrointestinal disorders (1 source) Diarrhea, unspecified Onset: 2 Resolved: 2 Episodic Other infections; including parasitic (10 sources) Personal history of other infectious and parasitic diseases; Translations: [History of COVID-19] Onset: 2 03-02-2022 Episodic Other non-traumatic joint disorders (4 sources) Pain in right knee; Translations: [PAIN IN RIGHT KNEE] Onset: 1 Episodic Other nutritional; endocrine; and metabolic disorders (1 source) Weight loss Onset: 4 Episodic Spondylosis; intervertebral disc disorders; other back problems (12 sources) Lumbar disc prolapse with radiculopathy; Translations: [Intervertebral disc disorders with radiculopathy, lumbar region] Onset: 3 12-03-2022 Episodic Sprains and strains (1 source) Sprain of unspecified site of right knee, initial encounter; Translations: [SPRAIN UNS SITE RT KNEE INITIAL] Onset: 1 Episodic Results Test Name Value Interpretation Reference Range Facility COMPREHENSIVE METABOLIC PANE [facility] 08-30-2023 Albumin [Mass/Vol] 4.1 g/dL Normal 3.2-5.3 [place] Comment on above: Performed By: #### C SID, [id number] #### [facility] ([id number]) [address], [address] [place] [address] ALP [Catalytic activity/Vol] 32 U/L Low 39-130 [facility] Comment on above: Performed By: #### C SID, [id number] #### [facility] ([id number]) [address], [address] [place] [address] ALT [Catalytic activity/Vol] 58 U/L High 0-40 [facility] Comment on above: Performed By: #### Neyda LAU, [id number] #### [facility] ([id number]) [address], [address] [place] [address] Anion gap [Moles/Vol] 9 mmol/L Normal 5-15 [facility] Comment on above: Performed By: #### Neyda LAU, #### [facility] ([id number]) [address], [address] [place] [address] AST [Catalytic activity/Vol] 40 U/L Normal 0-41 [facility] Comment on above: Performed By: #### Neyda LAU, #### [facility] ([id number]) [address], [address] [place] [address] Bilirubin [Mass/Vol] 0.3 mg/dL Normal 0.3-1.2 [facility] Comment on above: Performed By: #### Neyda LAU, #### [facility] ([id number]) [address], [address] [place] [address] Calcium [Mass/Vol] 9.7 mg/dL Normal 8.5-10.5 [place] Comment on above: Performed By: #### Neyda LAU, #### [facility] ([id number]) [address], [address] [place] [address] Chloride [Moles/Vol] 107 mmol/L Normal 98-109 [facility] Comment on above: Performed By: #### Neyda LAU, #### [facility] ([id number]) [address], [address] [place] [address] CO2 [Moles/Vol] 26 mmol/L Normal 22-32 [facility] Comment on above: Performed By: #### Neyda LAU, #### [facility] ([id number]) [address], [address] [place] [address] Creatinine [Mass/Vol] 1.18 mg/dL Normal 0.60-1.30 [facility] Comment on above: Result Comment: METH OD TRACEABLE TO IDMS STANDARD Performed By: #### Neyda LAU, #### [facility] ([id number]) [address], [address] [place] [address] GFR/1.73 sq M.predicted among non-blacks MDRD (S/P/Bld) [Vol rate/Area] 75 mL/min/{1.73_m2} Normal >59 [facility] Comment on above: Result Comment: Reported eGFR is based on the CKD-EPI 2020 equation that does not use a race coefficient. Performed By: #### Neyda LAU, #### [facility] ([id number]) [address], [address] [place] [address] Glucose [Mass/Vol] 92 mg/dL Normal 65-99 [place] Comment on above: Performed By: #### Neyda LAU, #### [facility] ([id number]) [address], [address] [place] [address] Potassium [Moles/Vol] 4.1 mmol/L Normal 3.5-5.0 [facility] Comment on above: Performed By: #### Neyda LAU, #### [facility] ([id number]) [address], [address] [place] [address] Protein [Mass/Vol] 6.8 g/dL Normal 6.0-8.0 [place] Comment on above: Performed By: #### Neyda LAU, #### [facility] ([id number]) [address], [address] [place] [address] Sodium [Moles/Vol] 142 mmol/L Normal 134-146 [place] Comment on above: Performed By: #### Neyda LAU, #### [facility] ([id number]) [address], [address] [place] [address] Urea nitrogen [Mass/Vol] 23 mg/dL Normal 5-23 [facility] Comment on above: Performed By: #### Neyda LAU, #### [facility] ([id number]) [address], [address] [place] [address] Comprehensive metabolic pane clint 08-30-2023 Albumin [Mass/Vol] 4.1 g/dL 3.2 - 5.3 g/dL [facility] ALP [Catalytic activity/Vol] 32 U/L Low 39 - 130 U/L [facility] ALT No additional P-5'-P [Catalytic activity/Vol] 58 U/L High 0 - 40 U/L [facility] Anion gap [Moles/Vol] 9 mmol/L 5 - 15 mmol/L [facility] AST [Catalytic activity/Vol] 40 U/L 0 - 41 U/L [facility] Bilirubin [Mass/Vol] 0.3 mg/dL 0.3 - 1.2 mg/dL [facility] Calcium [Mass/Vol] 9.7 mg/dL 8.5 - 10. 5 mg/dL [facility] Chloride [Moles/Vol] 107 mmol/L 98 - 109 mmol/L [facility] CO2 [Moles/Vol] 26 mmol/L 22 - 32 mmol/L [facility] Creatinine [Mass/Vol] 1.18 mg/dL 0.60 - 1.30 mg/dL [facility] Comment on above: METHOD TR[facility]ABLE TO [facility] STANDARD eGFR (CKD-EPI)non-race dependent 75 - PINF [facility] Comment on above: Reported eGFR is based on the CKD-EPI 2020 equation that does not use a race coefficient. Glucose [Mass/Vol] 92 mg/dL 65 - 99 mg/dL [facility] Potassium [Moles/Vol] 4.1 mmol/L 3.5 - 5.0 mmol/L [facility] Protein [Mass/Vol] 6.8 g/dL 6.0 - 8.0 g/dL [facility] Sodium [Moles/Vol] 142 mmol/L 134 - 146 mmol/L [facility] Urea nitrogen [Mass/Vol] 23 mg/dL 5 - 23 mg/dL [facility] MAGNESIUMon 08-30-2023 Magnesium [Mass/Vol] 1.7 mg/dL Low 1.8-2.6 [facility] Comment on above: Performed By: #### C , [id number] #### [facility] ([id number]) [address], [address] [place] [address] Magnesiumon 08-30-2023 Magnesium [Mass/Vol] 1.7 mg/dL Low 1.8 - 2.6 mg/dL [facility] No Panel Informationon 08-29 Interpretation and review of laboratory results Abnormal [facility] COVID Quick Testingon 2021 Result Negative [facility] Other COMPREHENSIVE METABOLIC PANE [facility] 06-02-2021 Albumin [Mass/Vol] 4.2 g/dL Normal 3.6-5.1 [facility] Comment on above: Performed By: #### 1 023, 6880 #### [facility] [place] [address] [employer] Consultant: Curtis Doan MD Albumin/Globulin [Mass ratio] 1.6 {ratio} Normal 1.0-2.5 [facility] Comment on above: Performed By: #### 1 023, 0 #### [facility] [place] [address] [employer] Consultant: Curtis Doan MD ALP [Catalytic activity/Vol] 44 U/L Normal 36-130 [facility] Comment on above: Performed By: #### 1 0231, 7600 #### [facility] [place] [address] [employer] Consultant: Curtis Doan MD ALT [Catalytic activity/Vol] 17 U/L Normal 9-46 [facility] Comment on above: Performed By: #### 1 0231, 7600 #### [facility] [place] [address] [employer] Consultant: Curtis Doan MD AST [Catalytic activity/Vol] 17 U/L Normal 10-40 [facility] Comment on above: Performed By: #### 1 0231, 7600 #### [facility] of [place] [address] [employer] Consultant: Curtis Doan MD Bilirubin [Mass/Vol] 0.3 mg/dL Normal 0.2-1.2 [facility] Comment on above: Performed By: #### 1 0231, 7600 #### [facility] [place] [address] [employer] Consultant: Curtis Doan MD Calcium [Mass/Vol] 9.6 mg/dL Normal 8.6-10.3 [facility] Comment on above: Performed By: #### 1 0231, 7600 #### [facility] [place] [address] [employer] Consultant: Curtis Doan MD Chloride [Moles/Vol] 107 mmol/L Normal 98-110 [facility] Comment on above: Performed By: #### 1 0231, 7600 #### [facility] [place] [address] [employer] Consultant: Curtis Doan MD CO2 [Moles/Vol] 26 mmol/L Normal 20-32 [facility] Comment on above: Performed By: #### 1 0231, 7600 #### [facility] [place] [address] [employer] Consultant: Curtis Doan MD Creatinine [Mass/Vol] 0.89 mg/dL Normal 0.60-1.35 [facility] Comment on above: Performed By: #### 1 0231, 7600 #### [facility] [place] [address] [employer] Consultant: Curtis Doan MD eGFR NON-AFR. SOMALI 101 mL/min/1.73m2 Normal > OR = 60 [facility] Comment on above: Performed By: #### 1 0231, 7600 #### [facility] [place] [address] [employer] Consultant: Curtis Doan MD GFR/1.73 sq M.predicted among blacks MDRD (S/P/Bld) [Vol rate/Area] 117 mL/min/{1.73_m2} Normal > OR = 60 [facility] Comment on above: Performed By: #### 1 023, 7600 #### [facility] of [address], [address] [place] [address] [employer] Consultant: Curtis Doan MD Globulin (S) [Mass/Vol] 2.7 g/dL Normal 1.9-3.7 [facility] Comment on above: Performed By: #### 1 023, 7600 #### [facility] of [address], [address] [place] [address] [employer] Consultant: Curtis Doan MD Glucose [Mass/Vol] 103 mg/dL Normal 65-139 [facility] Comment on above: Result Comment: Non-fasting reference interval For someone without known diabetes, a glucose value between 100 and 125 mg/dL is consistent with prediabetes and should be confirmed with a follow-up test. Performed By: #### 1 023, 7600 #### [facility] of [address], [address] [place] [address] [employer] Consultant: Curtis Doan MD Potassium [Moles/Vol] 4.1 mmol/L Normal 3.5-5.3 [facility] Comment on above: Performed By: #### 1 023, 7600 #### [facility] of [address], [address] [place] [address] [employer] Consultant: Curtis Doan MD Protein [Mass/Vol] 6.9 g/dL Normal 6.1-8.1 [facility] Comment on above: Performed By: #### 1 023, 7600 #### [facility] [address], [address] [place] [address] [employer] Consultant: Curtis Doan MD Sodium [Moles/Vol] 140 mmol/L Normal 135-146 [facility] Comment on above: Performed By: #### 1 023, 7600 #### [facility] [address], [address] [place] [address] [employer] Consultant: Curtis Doan MD Urea nitrogen [Mass/Vol] 27 mg/dL High 7-25 [facility] Comment on above: Performed By: #### 1 023, 7600 #### [facility] [address], [address] [place] [address] [employer]ant: Curtis Doan MD Urea nitrogen/Creatinin e [Mass ratio] 30 mg/mg High 6-22 [facility] Comment on above: Performed By: #### 1 023, 0 #### [facility] [address], [address] [place] [address] [employer] Consultant: Curtis Doan MD LIPID PANEL, [facility] [place] 12 Cholesterol [Mass/Vol] 123 mg/dL Normal <200 [facility] Comment on above: Order Comment: FASTI NG:NO FASTING: NO Performed By: #### 1 023, 0 #### [facility] [address], [address] [place] [address] [employer] Consultant: Curtis Doan MD Cholesterol in HDL [Mass/Vol] 29 mg/dL Low > OR = 40 [facility] Comment on above: Order Comment: FASTI NG:NO FASTING: NO Performed By: #### 1 023, 0 #### [facility] [place] [address] [employer] Consultant: Curtis Doan MD Cholesterol in LDL [Mass/Vol] [...] equation in the estimation of LDL-C. Noman GAR et al. EARNESTINE. 2013;310(19): 6617-5108 (http://education.Vamosa.Meebo/faq/MHR898) Performed By: #### 1 023, 0 #### [facility] [address], [address] [place] [address] [employer] Consultant: Curtis Doan MD Cholesterol.total/ Cholesterol in HDL [Mass ratio] 4.2 {ratio} Normal <5.0 [facility] Comment on above: Order Comment: FASTI NG:NO FASTING: NO Performed By: #### 1 0231, 7600 #### [facility] [address], [address] [place] [address] [employer] Consultant: Curtis Doan MD NON HDL CHOLESTEROL 94 mg/dL (calc) Normal <130 [facility] Comment on above: Order Comment: FASTI NG:NO FASTING: NO Result Comment: For patients with diabetes plus 1 major ASCVD risk factor, treating to a non-HDL-C goal of <100 mg/dL (LDL-C of <70 mg/dL) is considered a therapeutic option. Performed By: #### 1 023, 0 #### [facility] [address], [address] [place] [address] [employer] Consultant: Curtis Doan MD Triglyceride [Mass/Vol] 397 mg/dL High <150 [facility] Comment on above: Order Comment: FASTI NG:NO FASTING: NO Result Comment: If a non-fasting specimen was collected, consider repeat triglyceride testing on a fasting specimen if clinically indicated. Alex et al. J. of Clin. Lipidol. 2015;9:129-169. Performed By: #### 1 023, 0 #### [facility] [address], [address] [place] [address] [employer] Consultant: Curtis Doan MD CBC AUTO DIFFon 05-15-2021 BASO # 0.0 103/ul Normal 0.0-0.1 [facility] Comment on above: Performed By: #### C BC #### [facility] [address] [place] [address] Dr. Diego Covarrubias Basophils/100 WBC (Bld) 0.5 % Normal 0.2-2.0 [facility] Comment on above: Performed By: #### C BC #### [facility] [address] [place] [address] Dr. Diego Covarrubias EO # 0.1 103/ul Normal 0.0-0.7 [facility] Comment on above: Performed By: #### C BC #### [facility] [address] [place] [address] Dr. Diego Covarrubias Eosinophils/100 WBC (Bld) 1.5 % Normal 0.9-7.0 [facility] Comment on above: Performed By: #### C BC #### [facility] [address] [place] [address] Dr. Diego Covarrubias Erythrocyte distribution width (RBC) [Ratio] 12.6 % Normal 11.0-15.0 [facility] Comment on above: Performed By: #### C BC #### [facility] [address] [place] [address] Dr. Diego Covarrubias Hematocrit (Bld) [Volume fraction] 41.9 % Critically low 42.0-54.0 [facility] Comment on above: Performed By: #### C BC #### [facility] [address] [place] [address] Dr. Diego Covarrubias Hemoglobin (Bld) [Mass/Vol] 14.2 g/dL Normal 14.0-18.0 [facility] Comment on above: Performed By: #### C BC #### [facility] [address] [place] [address] Dr. Diego Covarrubias IG # 0.03 10e3/ul Normal 0.00-0.03 [facility] Comment on above: Performed By: #### C BC #### [facility] [address] [place] [address] Dr. Diego Covarrubias IG % 0.5 % Normal 0.0-0.5 [facility] Comment on above: Performed By: #### C BC #### [facility] [address] [place] [address] Dr. Diego Covarrubias LYMPH # 2.0 103/ul Normal 1.2-3.8 [facility] Comment on above: Performed By: #### C BC #### [facility] [address] [place] [address] Dr. Diego Covarrubias Lymphocytes/100 WBC (Bld) 32.1 % Normal 20.5-60.0 [facility] Comment on above: Performed By: #### C BC #### [facility] [address] [place] [address] Dr. Diego Covarrubias MANUAL DIFF REQ NO Normal [facility] Comment on above: Performed By: #### C BC #### [facility] [address] [place] [address] Dr. Diego Covarrubias MCH (RBC) [Entitic mass] 31.5 pg Normal 25.9-34.0 [facility] Comment on above: Performed By: #### C BC #### [facility] [address] [place] [address] Dr. Diego Covarrubias MCHC (RBC) [Mass/Vol] 33.9 g/dL Normal 29.9-35.2 [facility] Comment on above: Performed By: #### C BC #### [facility] [address] [place] [address] Dr. Diego Covarrubias MCV (RBC) [Entitic vol] 92.9 fL Normal 80.0-94.0 [facility] Comment on above: Performed By: #### C BC #### [facility] [address] [place] [address] Dr. Diego Covarrubias MONO # 0.8 103/ul Normal 0.3-0.8 [facility] Comment on above: Performed By: #### C BC #### [facility] [address] [place] [address] Dr. Diego Covarrubias Monocytes/100 WBC (Bld) 13.5 % Critically high 1.7-12.0 [facility] Comment on above: Performed By: #### C BC #### [facility] [address] [place] [address] Dr. Diego Covarrubias NEUT # 3.2 103/ul Normal 1.4-6.5 [facility] Comment on above: Performed By: #### C BC #### [facility] [address] [place] [address] Dr. Diego Covarrubias Neutrophils/100 WBC (Bld) 51.9 % Normal 43.0-75.0 [facility] Comment on above: Performed By: #### C BC #### [facility] [address] [address] [address] Diego Covarrubias Platelet mean volume (Bld) [Entitic vol] 9.6 fL Normal 9.5-13.5 [facility] Comment on above: Performed By: #### C BC #### [facility] [address] [address] [address] Diego Covarrubias PLT 244 103/ul Normal 150-450 [facility] Comment on above: Performed By: #### C BC #### [facility] [address] [address] [address] Diego Covarrubias RBC 4.51 106/ul Critically low 4.70-6.10 [facility] Comment on above: Performed By: #### C BC #### [facility] [address] [address] [address] Diego Covarrubias WBC 6.2 103/ul Normal 4.0-11.0 [facility] Comment on above: Performed By: #### C BC #### [facility] [address] [place], [place] [id number] Dr. Diego Covarrubias CT SINUS WO CONTRASTon [...] recommended.Electronica lly signed by: DO Narcisa BYRD [facility] Initial Visit (Otolaryngolog y)on 11-21-2017 Initial Visit (Otolaryngology) Chief ComplaintThis is a new patient that is here for possible deviated septum History of Present IllnessMar Mony is here for a new patient consultation for his chronic sinus infections. [facility] Pt reports repeat sinus infections. Jorgito states [...] BusPIRone HCl - 15 MG Oral Tablet;Therapy: [id number] to Recorded Dispense: 0 Days ; #: Sufficient Tablet; Refill: 0; ELENITA = N; Record; Last Updated By: Amisha Matias; 11/09/2017 1:27:18 PM Vitals Vital Signs Recorded: 09Nov2017 01:32TQQdncnx7 ft 7 gkBizpma850 lb BMI Yzohncmbbl03.75BSA Calculated2.19 Physical ExamPhysical Examination:A detailed examination of [...] concerned about his sinuses. ProcedureNASAL ENDOSCOPY (CPT 47783):To better evaluate the patient's symptoms sinonasal endoscopy [...] CT Sinus without Contrast; Status:Active; Requested for:23Nov2017; Perform:[facility];Ordered; For:Chronic sinusitis; Ordered By:Christina Apodaca;Reason: Unspecified for CT Sinus without ContrastRadiologist to Determine Optimal Study : YRequesting physician's phone/pager number? : [phone] Alerts (ie: MRSA, TB, Diabetic) : diabeticWhat [...] MedsBusPIRone HCl - 15 MG Oral Tablet;Therapy: [id number] to Recorded Signatures Electronically signed by : Christina Apodaca MD; Nov 21 2017 7:37AM EST (Author) Normal [facility] Vital Signs Date Time Vital Sign Value Performing Clinician Facility 08-30-2023 15:51-0400 Body height 165.1 cm Josie Stricklandrebeca DALEY Work Phone: [facility] 08-30-2023 15:51-0400 Body mass index (BMI) [Ratio] 40 kg/m2 Josie Veronica YIP-DIXON Work Phone: [facility] 08-30-2023 15:51-0400 Body temperature 98.1 [degF] Josie Martin EDI Work Phone: [facility] 08-30-2023 15:51-0400 Body weight 109.05 kg Josie Marco Arebeca EDI Work Phone: [facility] 08-30-2023 15:51-0400 Diastolic blood pressure 70 mm[Hg] Josie DALEY Work Phone: [facility] [employer] 08-30-2023 15:51-0400 Heart rate 107 /min Josie DALEY Work Phone: [facility] [employer] 08-30-2023 15:51-0400 Respiratory rate 18 /min Josie DALEY Work Phone: [facility] [employer] 08-30-2023 15:51-0400 SaO2% (BldA) [Mass fraction] 98 % Josie DALEY Work Phone: [facility] [employer] 08-30-2023 15:51-0400 Systolic blood pressure 120 mm[Hg] Josie DALEY Work Phone: [facility] [employer] 08-04-2023 14:27-0500 Body height 165.1 cm Shahbaz Furlong DO Work Phone: [facility] [employer] [facility] 08-04-2023 14:27-0500 Body mass index (BMI) [Ratio] 40.25 kg/m2 Shahbaz Furlong DO Work Phone: [facility] [employer] 08-04-2023 14:27-0500 Body temperature 98.6 [degF] Shahbaz Furlong DO Work Phone: [facility] [employer] 08-04-2023 14:27-0500 Body weight 109.72 kg Shahbaz Furlong [facility] 08-04-2023 14:27-0500 Diastolic blood pressure 68 mm[Hg] Shahbaz Furlong DO Work Phone: [facility] [employer] 08-04-2023 14:27-0500 Heart rate 100 /min Shahbaz Furlong DO Work Phone: [facility] [employer] [facility] 08-04-2023 14:27-0500 SaO2% (BldA) [Mass fraction] 97 % Shahbaz Monk DO [facility] 08-04-2023 14:27-0500 Systolic blood pressure 110 mm[Hg] Shahbaz Monk DO Work Phone: [facility] [employer] 06-21-2023 16:30-0500 Body height 165.1 cm Josie Martin APRN-PUSHCART PEDDLER Work Phone: [facility] [employer] 06-21-2023 16:30-0500 Body mass index (BMI) [Ratio] 39.51 kg/m2 Josie Martin APRN-PUSHCART PEDDLER Work Phone: [facility] [employer] 06-21-2023 16:30-0500 Body temperature 98.29 [degF] Josie Martin APRN-PUSHCART PEDDLER [facility] 06-21-2023 16:30-0500 Body weight 107.68 kg Josie Martin APRN-PUSHCART PEDDLER [facility] 06-21-2023 16:30-0500 Diastolic blood pressure 66 mm[Hg] Josie DALEY Work Phone: [facility] [employer] 06-21-2023 16:30-0500 Heart rate 98 /min Josie DALEY [facility] 06-21-2023 16:30-0500 SaO2% (BldA) [Mass fraction] 95 % Jsoie HANDPUSHCART PEDDLER [facility] 06-21-2023 16:30-0500 Systolic blood pressure 102 mm[Hg] Josie Martin APRN-PUSHCART PEDDLER Work Phone: [facility] [employer] [facility] 06-16-2021 11:30-0500 Body height 167.64 cm Kendy Patino Other [facility] Other 01-04-2022 11:30-0500 Body mass index (BMI) [Ratio] 36.31 kg/m2 Kendy Patino Other [facility] Other 06-16-2021 11:30-0500 Body temperature 98.6 [degF] Kendy Patino Other [facility] Other 06-16-2021 11:30-0500 Body weight 102.06 kg Kendy Patino Other [facility] Other 06-16-2021 11:30-0500 Respiratory rate 20 /min Kendy Patino Other [facility] Other 06-16-2021 11:30-0500 SaO2% (BldA) [Mass fraction] 98 % Kendy Patino Other [facility] Other Encounters Encounter Date Encounter Type Care Provider Facility Start: 01-02-2024 End: 01-02-[address] [facility] Start: 10-10-2023 End: 10-10-2023 ambulatory [facility] Start: 09-12-2023 Orders Only Shahbaz Auguste [facility] DO Work Phone: [facility] Start: 08-31-2023 Orders Only Josie Martin BLADE GRADER OPERATOR-PUSHCART PEDDLER Work Phone: [facility] Comment on above: Hypomagnesemia (Prim yudy Dx) Start: 08-31-2023 End: 08-31-2023 ambulatory [facility] Start: 08-30-2023 End: 08-30-2023 Office outpatient visit 25 minutes Josie Guzmán Marco Arebeca BLADE GRADER OPERATOR-PUSHCART PEDDLER [facility] Comment on above: Acute kidney injury (nontraumatic) (CMS-HCC) (Primary Dx); Hypomagnesemia; Essential hypertension; [place]bid [place] Start: 08-30-2023 End: 08-30-2023 ambulatory [facility] Start: 08-13-2023 Refill Shahbaz quintero DO Work Phone: [facility] Comment on above: Essential (primary) hypertension Start: 08-12-2023 Refill Shahbaz quintero DO Work Phone: [facility] Comment on above: Urinary urgency Start: 08-04-2023 End: 08-04-2023 Office outpatient visit 25 minutes Shahbaz Monk DO Work Phone: [facility] Comment on above: [facility]bid [facility]) (Primary Dx); Lumbar disc prolapse with compression radiculopathy; Left lateral epicondylitis; Essential hypertension; Spondylolisthesis, lumbar region; Pre-diabetes Start: 08-04-2023 End: 08-04-2023 [facility] Start: 07-28-2023 Refill Shahbaz Molina quintero DO Work Phone: [facility] Comment on above: Urinary urgency Start: 07-04-2023 Telephone encounter Shahbaz Molina menjivar DO Work Phone: [facility] Start: 06-21-2023 End: 06-21-2023 Office outpatient visit [address] [facility] BLADE GRADER OPERATOR-PUSHCART PEDDLER Work Phone: [facility] Comment on above: Lateral epicondyliti s of left elbow (Primary Dx) Start: 06-21-2023 End: 06-21-2023 ambulatory [facility] Start: 12-03-2021 End: 12-04-[address] SHAHBAZ MNOK Facility: Start: 06-16-2021 End: 06-16-2021 ambulatory Kendy Patino Other [facility] Other Start: 06-16-2021 Office outpatient vi sit 15 minutes Kendy Patino [facility] Start: 05-21-2021 Encounter for preprocedural cardiovascular examination DR DOCTOR NGUYEN [facility] Start: 05-21-2021 Encounter for preprocedural laboratory examination DR DOCTOR NGUYEN [facility] Start: 05-15-2021 End: 05-16-[address] DOCTOR NGUYEN Facility:[facility] Start: 05-15-2021 End: 05-16-2021 Encounter for preprocedural laboratory examination DR DOCTOR NGUYEN Facility:[facility] Start: 02-19-2021 End: 02-19-[address] SHAHBAZ MONK Facility:[facility] Start: 11-23-2017 Ambulatory Christina Apodaca Fac ility:[facility] Start: 11-09-2017 Ambulatory Christina Apodaca Fac ility:[id number] Procedures Date Procedure Procedure Detail Performing Clinician Start: 08-30-2023 Follow-up visit Follow-up JOSIE MARTIN Start: 08-30-2023 Adult depression screening assessment Josie Martin BLADE GRADER OPERATOR-PUSHCART PEDDLER Work Phone: Start: 08-04-2023 Adult depression screening assessment Shahbaz Monk DO Work Phone: Start: 06-21-2023 Adult depression screening assessment Josie Martin BLADE GRADER OPERATOR-PUSHCART PEDDLER Work Phone: Plan of Treatment Date Care Activity Detail Author Start: 02-11-2030 DTaP,Tdap and Td Vac cines (3 - Td or Tdap) DTaP,Tdap and Td Vaccines (3 - Td or Tdap) [facility] [employer] [facility] Start: 08-29-2024 Adult BMI Screening [facility] Start: 08-29-2024 Depression Screening Depression Scre ening [facility] Start: 08-29-2024 Tobacco Screening Tobacco Screening [facility] Start: 08-28-2024 Screening for malign ant neoplasm of colon Colon Cancer Screening 3 Year Cologuard [facility] Start: 08-04-2024 Adult BMI Screening Adult BMI Screen ing [facility] [employer] [facility] Start: 08-04-2024 Depression Screening Depression Scre ening [facility] Start: 08-04-2024 Tobacco Screening Tobacco Screening [facility] Start: 06-21-2024 Adult BMI Screening Adult BMI Screen ing [facility] Start: 06-21-2024 Depression Screening Depression Scre ening [facility] Start: 06-21-2024 Tobacco Screening Tobacco Screening [facility] Start: 02-12-2024 Influenza vaccination Influenza Vacc ine [facility] Start: 11-03-2023 End: 11-03-2023 Patient encounter procedure 11/03/2023 4:10 PM EDT Office Visit [facility] [address] [place] [address] Shahbaz Monk, [address], [place] [address] [facility] Start: 10-10-2023 End: 10-10-2023 Patient encounter procedure 10/10/2023 4:00 PM EDT Office Visit [facility] [address] [place] [address] Josie Martin, BLADE GRADER OPERATOR-[facility] [address] [facility] [place] [place] [address] [facility] Start: 09-11-2023 Influenza vaccination Influenza Vacc ine [facility] Comment on above: Postponed from 02/11 (Patient Refused) Start: 08-04-2023 End: 08-04-2023 Patient encounter procedure 08/04/2023 2:20 PM EST Office Visit [facility] [address] [place] [address] Shahbaz Monk, [address], [place] [address] [facility] Start: 2023 Administration of varicella zoster vaccine Zoster (Shingles) Vaccine (1 of 2) [facility] Start: 02-11-2023 Influenza vaccination Influenza Vacc ine [facility] Start: 1991 Adult BMI Follow Up Plan Adult BMI Follow Up Plan [facility] Immunizations Immunization Date Immunization Notes Care Provider Fa cility 02-12-2020 diphtheria, tetanus toxoids and pertussis vaccine Josie Martin BLADE GRADER OPERATOR-PUSHCART PEDDLER Work Phone: [facility] 02-12-2020 tetanus toxoid, redu jackson diphtheria toxoid, and acellular pertussis vaccine, adsorbed Josie Martin BLADE GRADER OPERATOR-PUSHCART PEDDLER Work Phone: [facility] 02-03-2018 hepatitis B vaccine, adult dosage Josie Martin BLADE GRADER OPERATOR-PUSHCART PEDDLER Work Phone: [facility] 09-07-2017 hepatitis B vaccine, adult dosage Josie Martin BLADE GRADER OPERATOR-PUSHCART PEDDLER Work Phone: [facility] 08-04-2017 hepatitis B vaccine, pediatric or pediatric/adolescent dosage Josie Martin BLADE GRADER OPERATOR-PUSHCART PEDDLER Work Phone: [facility] Payers Date Payer Category Payer Private Health Insurance [id number] 2023 Private Health Insurance [id number] 2012 Unknown [employer]NEST[employer] [id number] 2012-Present [phone] [address] [place] [address] [id number] 1973 Unknown [id number] 1973 Unknown [id number] [id number] 1973 Unknown [id number] 1973 Unknown [id number] [id number] 1973 Unknown [id number] [id number] 1973 Unknown [id number] [id number] 1973 Unknown [id number] [id number] 1973 Unknown [id number] [id number] 1973 Unknown [id number] [id number] 1959 Unknown [id number] Social History Date Type Detail Facility Start: 03-07-2023 End: 05-03-2023 Sex Assigned At [facility] Start: 03-07-2023 Tobacco smoking stat [facility] Ex-smoker [facility] Start: 06-13-1989 End: 09-11-2022 History of tobacco use Current smoker [facility] Start: 06-13-1989 End: 09-11-2022 History of tobacco use Cigarette Smoker [facility] Start: 03-07-2023 End: 08-30-2023 Cigarettes smoked current (pack per day) - Reported 0.5 [facility] Start: 03-07-2023 Tobacco use and exposure Smokeless tobacco non-user [facility] Start: 06-21-2023 End: 08-04-2023 Alcohol intake Current drinker of alcohol (finding) [facility] Has the [employer], or [employer] threatened to shut off services in your home in past 12Mo No [facility] Are you now , , , , never or living with a partner? [facility] How often to you hav e a drink containing alcohol? 2-4 times a month [facility] How many standard drinks containing alcohol do you have on a typical day? 1 or 2 [facility] How often do you hav e 6 or more drinks on 1 occasion? Never [facility] How hard is it for y ou to pay for the very basics like food, housing, medical care, and heating Not hard at all [facility] Do you feel stress - tense, restless, nervous, or anxious, or unable to sleep at night because your mind is troubled all the time - these days [OSQ] Not at all [facility] Start: 03-02-2022 Alcohol Comment Occasional 6 p ack once a month [facility] Start: 1975 Sex Assigned At Not on file [facility] Start: 08-30-2023 Alcohol intake Ex-drinker (finding) [facility] Clinical Notes 02-19-2021 to 09-12-2023 Shahbaz Monk DO - 09/12/2023 11:04 AM EDTMary Arielle Martin APRN-DIXON - 08/30/2023 4:00 PM EDTTelephone Encounter - Kym Parks CMA - 08/13/2023 5:05 PM EST Note Date & Type Note Facility 09-12-2023 History of Presen t illness Narrative Semaglutide 0.6 mg once a week sent in to [facility] documented in this encounter [facility] 08-30-2023 History of Presen t illness Narrative [...] for this visit: Acute kidney injury (nontraumatic) ([facility]) - Comprehensive metabolic panel; Future Hypomagnesemia - Magnesium; Future Essential hypertension Morbid obesity ([facility]) He looks good today and his labs [...] Berg 08/30/23 1710 [facility] encounter [facility]2023 Miscellaneous Notes Formattin g of this note might be different from the original. I called pt and he is taking it.He has a 90 supply everything good he is receiving it through [employer] [facility]-13-2023 Telephone encount er Note I called pt and he is taking it.He has a 90 supply everything good he is receiving it through [employer] [facility] 08-04-2023 History of Presen t illness Narrative [...] would like a refill. 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 Soraya fitzgerald called requesting an [facility] med refill however I dont see it as a listed med. Please advise. It was not going to be covered so I changed it to something else per patient's request. documented in this encounter [facility] 07-04-2023 Telephone encount er Note Soraya fitzgerald called requesting an [facility] med refill however I dont see it as a listed med. Please advise. [facility] 07-04-2023 Telephone encount er Note It was not going to be covered so I changed it to something else per patient's request. [facility] 06-21-2023 History of Presen t illness [...] EDI Amaya 06/21/231723 documented in this encounter [facility] 12-04-2021 Note PROCEDURE: XR HEEL R T [...] authenticated by: SALINA AGUILERA Date: 2021-12-04 09:07 [facility] 06-16-2021 Evaluation note Encounter Date Diagnosis [...] Patient care instructions given in writting by [facility] Care At Home document. [facility] Other 09-09-2021 NotePROCEDURE: XR KNEE RT 4V [...] Electronically authenticated by: SALINA AGUILERA Date: 2021-02-19 14:03[facility]* Diagnosis Lateral epicondylitis of left elbow- Primary [facility] Diagnosis Urinary urgency Urgency of urination documented in this encounter [facility]* Diagnosis Morbid obesity ([facility])- Primary Morbid obesity Lumbar disc prolapse with compression radiculopathy Displacement of lumbar intervertebral disc without myelopathy Left lateral epicondylitis Essential hypertension Unspecified essential hypertension Spondylolisthesis, lumbar region Pre-diabetes Other abnormal glucose documented in this encounter [facility]* Diagnosis Urinary urgency Urgency of urination documented in this encounter [facility]* Diagnosis Essential (primary) hypertension Unspecified essential hypertension documented in this encounter [facility]* Diagnosis Acute kidney injury (nontraumatic) ([facility])- Primary Acute kidney failure, unspecified Hypomagnesemia Disorders of magnesium metabolism Essential hypertension Unspecified essential hypertension Morbid obesity ([facility]) Morbid obesity documented in this [facility]* Diagnosis Hypomagnesemia- Primary Disorders of magnesium metabolism documented in this [facility] System[facility] general Narrative - Reported* Type Description Date Medical History GERD Medical History arthritis Medical History NIDDM Medical History HTN Medical History hyperlipidemia Medical History sleep apnea Medical History depression Medical History deviated nasal septum Medical History chronic sinusitis Medical History COPD Surgical History Injection Tendon Origin/Inserti on Surgical History LASIK Surgical History total hip replacement, left Hospitalization History surgeries [facility] Other InstructionsNot on filedocumented in this encounter [facility] filedocumented in this encounter [facility] on filedocumented in this encounter [facility] on filedocumented in this encounter [facility] on filedocumented in this encounter [facility]Not on filedocumented in this encounter [facility] Summary Purpose Family History No [...] section and content) DATE CREATED AUTHOR 11/29/2017 [facility] DATE CREATED AUTHOR AUTHOR'S ORGANIZ ATION 12/02/2017 [facility] DATE CREATED AUTHOR AUTHOR'S ORGANIZ ATION 06/02/2021 [facility] DATE CREATED AUTHOR AUTHOR'S ORGANIZ ATION 12/09/2021 [facility] DATE CREATED AUTHOR AUTHOR'S ORGANIZ ATION 09/01/2023 [facility] DATE CREATED AUTHOR AUTHOR'S ORGANIZ ATION 01/05/[address] [facility] REASON FOR VISIT (unrecogniz ed section and content) Reason Comments elbow, arm wrist pain w/ lump on wrist Reason Comments Med Refill Reason Comments Weight Loss Reason Comments Follow-up From ER visit 3 days at [facility] Care Teams (unrecognized sec tion and content) Residential Door Installer Relationship Specialty Start Date End Date Shahbaz Monk DO [address] [place] [address] PCP - General Family Medicine 02/11/22 Residential Door Installer Relationship Specialty Start Date End Date Shahbaz Monk DO [address] [place] [address] PCP - General Family Medicine 02/11/22 Residential Door Installer Relationship Specialty Start Date End Date hSahbaz Monk DO [address] [place] [address] PCP - General Family Medicine 02/11/22 Residential Door Installer Relationship Specialty Start Date End Date Shahbaz Monk DO [address] [place] [address] PCP - [facility] Medicine 02/11/22 Residential Door Installer Relationship Specialty Start Date End Date Shahbaz Monk DO [address] [place] [address] PCP - [facility] Family Medicine 02/11/22 Residential Door Installer Relationship Specialty Start Date End Date Shahbaz Monk DO [address] [place] [address] PCP - General Family Medicine 02/11/22 FOR RECORDS PERTAINING TO PATIENTS WHO [...] BE BASED ON THE PRIMARY CLINICAL RECORDS. [facility]. provides no warranty or guarantee of the accuracy or completeness of information in this document.
--- NOTE | 2024-01-08 23:33 | CT_ITS ---
The [address] [address] Patient Name: STEFFANY JOVEL MRN: [id number] date: 1975 Sex: M Assigned Patient Location: ER Current Patient Location: ER Accession/Order Number: [id number] Exam Date: 01/08/2024 23:45 Report Date: 01/09/2024 00:25 At the request of: BIANCA MELGAR Procedure: CT abdomen pelvis wo con EXAM: CT abdomen pelvis wo con HISTORY: right CVA pain COMPARISON: CT abdomen pelvis, 08/22/2023. TECHNIQUE: Nonenhanced CT imaging of the abdomen and pelvis was performed with sagittal and coronal reconstructions. Dose reduction techniques were achieved by using automated exposure control and/or adjustment of mA and/or kV according to patient size and/or use of iterative reconstruction technique. FINDINGS: CT ABDOMEN: The lung bases are clear. The imaged heart is unremarkable. Cholelithiasis is noted without cholecystitis. There is no biliary ductal dilatation. There is mild hepatic steatosis. The pancreas, spleen, adrenal glands, stomach and small bowel appear grossly unremarkable. There is mild right hydronephrosis due to a 5 mm proximal right ureteral stone near the UPJ at the upper L3 level on image 69 of series 3. The kidneys are otherwise unremarkable. There are mild aortic calcifications without aneurysm. The IVC appears normal. There is a fat-containing umbilical hernia. CT PELVIS: A normal appendix is seen on image 87. The pelvic small bowel loops, colon, urinary bladder and prostate are unremarkable. No inflammatory fat stranding, free fluid, loculated fluid or free air is seen in the abdomen or pelvis. Left total hip arthroplasty is in appropriate position and alignment. No acute osseous abnormality or suspicious bony lesion is seen. CT/CT abdomen pelvis wo con IMPRESSION: 1. Mild right hydronephrosis due to a 5 mm proximal right ureteral stone near the UPJ. No additional upper or lower urinary tract calculi are seen on either side. There are no other acute findings in the abdomen or pelvis. 2. Cholelithiasis. 3. Mild hepatic steatosis. Electronically authenticated by: TANNER HALL Date: 01/09/2024 00:25
--- NOTE | 2024-01-08 23:34 | ED_ITS ---
HPI HPI - Back Pain/Injury General Chief Complaint: Back Pain/Injury Stated Complaint: BACK PAIN Time Seen by Provider: 01/08/24 23:28 Source: patient Mode of arrival: walk-in History of Present Illness HPI Narrative: patient complains of pain right back para lumbar on and off for past 4 days. No injury. States he has degenerative disease of his back. No radicular symptoms to his legs. No leg weakness or difficulty controlling bowel or bladder. No fever or urinary symptoms. complains of nausea Related Data Home Medications ?Medication ?Instructions ?Recorded ?Confirmed atorvastatin 20 mg tablet 20 mg PO DAILY 08/22/23 08/22/23 azilsartan medoxomil 40 mg tablet 40 mg PO DAILY 08/22/23 08/22/23 (Edarbi) celecoxib 200 mg capsule 200 mg PO BID 08/22/23 08/22/23 fenofibrate 160 mg tablet 160 mg PO DAILY 08/22/23 08/22/23 metoprolol succinate 50 mg 50 mg PO DAILY 08/22/23 08/22/23 tablet,extended release 24 hr omeprazole 20 mg capsule,delayed 20 mg PO DAILY 08/22/23 08/22/23 release oxybutynin chloride 5 mg tablet 5 mg PO DAILY 08/22/23 08/22/23 Previous Rx's ?Medication ?Instructions ?Recorded hyoscyamine sulfate 0.125 mg 0.125 mg PO Q6H PRN dyspepsia #20 08/24/23 tablet (Levsin) tabs loperamide 2 mg capsule 2 mg PO Q4H PRN loose stool #24 08/24/23 (Anti-Diarrheal (loperamide)) caps ondansetron 4 mg disintegrating 4 mg PO Q8H PRN nausea and 08/24/23 tablet vomiting 4 days #20 tabs ondansetron 4 mg disintegrating 4 mg PO Q8H PRN nausea and 09/26/23 tablet vomiting 4 days #12 tabs Allergies Allergy/AdvReac Type Severity Reaction Status Date / Time No Known Drug Allergies Allergy Verified 08/22/23 05:50 Opioid HPI Opioid Management Most Recent Opioid Data: 2 Last Pain Scale 8 01/09/24 00:10 Last MAR Pain Assessment 01/09/24 00:10 Last ORT Total Score 0 08/22/23 09:09 Last ORT Risk Category Low Risk 08/22/23 09:09 Review of Systems 2 ROS0 Status of ROS 10 or more systems reviewed and unremark able except as noted in history and below [facility] Medical History (Updated 01/09/24 @ 02:56 by Sagar Pineda MD) GERD (gastroesophageal reflux disease) ?K21.9 - Gastro-esophageal reflux disease without esophagitis (ICD-10) OAB (overactive bladder) ?N32.81 - Overactive bladder (ICD-10) Hyperlipidemia ?E78.5 - Hyperlipidemia, unspecified (ICD-10) Prediabetes ?R73.03 - Prediabetes (ICD-10) HTN (hypertension) ?I10 - Essential (primary) hypertension (ICD-10) Cholelithiasis ?K80.20 - Calculus of gallbladder without cholecystitis without obstruction (ICD-10) Degenerative disc disease, lumbar ?M51.36 - Other intervertebral disc degeneration, lumbar region (ICD-10) Surgical History (Updated 08/22/23 @ 09:52 by Raegan Lopez) History of hip replacement ?Z96.649 - Presence of unspecified artificial hip joint (ICD-10) Family History (Updated 08/22/23 @ 09:55 by Raegan Lopez) Father Family history of CHF (congestive heart failure) Family history of COPD (chronic obstructive pulmonary disease) Family history of hypertension Family history of stroke Grandfather Family history of cancer Family history of hypertension Grandfather Family history of cancer Brother Family history of diabetes mellitus Family history of hypertension Social History (Updated 08/22/23 @ 09:54 by Raegan Lopez) Within the past year, how often did you have a drink containing alcohol: 2-4 times a month Within the past year, how many standard drinks containing alcohol did you have on a typical day: 1 or 2 Within the past year, how often did you have six or more drinks on one occasion: never Total score: 0 Score interpretation: A score less than 4 is consistent with normal alcohol consumption. Smoking status: Current every day smoker Do you use any of these nicotine containing products: vaping products Non-prescribed substance use: denies use Previous occupational history: [employer] Highest level of school completed/degree received: Associate degree: occupational, technical, vocational program Little interest or pleasure in doing things: not at all Feeling down, depressed, or hopeless: not at all Feel stressed/tense/nervous/anxious/difficulty sleeping: not at all Exam Constitutional Vital Signs, click to edit/add: Last Vital Signs Temp 98.9 F 01/08/24 22:52 Pulse 110 H 01/08/24 22:52 Resp 16 01/08/24 22:52 BP 132/99 H 01/08/24 22:52 Pulse Ox 97 01/08/24 22:52 O2 Del Method Room Air 01/08/24 22:52 Common normals: no apparent distress, average body habitus, oriented x3, no limitations, healthy appearing and alert HENMT Common normals: normocephalic and head/scalp atraumatic Eye Common normals: EOMs intact bilaterally and conjunctivae normal Respiratory Common normals: normal respiratory effort, no retractions and no use of accessory muscles Cardio Common normals: regular rate, regular rhythm, S1 normal heart sound and S2 normal heart sound GI Common normals: Normal to inspection, nondistended, normoactive bowel sounds present and soft to palpation Back & Pelvis Back image (male): 2 1. tender Extremity Common normals: normal to inspection and full ROM Neuro Common normals: oriented x3, CN's II-XII intact bilaterally, moves all extremities and no focal motor deficits Psych Appearance: grossly normal Course Vital Signs Vital signs: Vital Signs Temperature 98.9 F 01/08/24 22:52 Pulse Rate 110 H 01/08/24 22:52 Respiratory Rate 16 01/08/24 22:52 Blood Pressure 132/99 H 01/08/24 22:52 Pulse Oximetry 97 01/08/24 22:52 Oxygen Delivery Method Room Air 01/08/24 22:52 Temperature 98.9 F 01/08/24 22:52 Pulse Rate 110 H 01/08/24 22:52 Respiratory Rate 16 01/08/24 22:52 Blood Pressure 132/99 H 01/08/24 22:52 Pulse Oximetry 97 01/08/24 22:52 Oxygen Delivery Method Room Air 01/08/24 22:52 MDM - Back Pain/Injury MDM Narrative Medical decision making narrative: patient presents with right CVA pain on and off for 4 days. Pain associated with nausea. No fever. found to have 5mm stone with mild hydronephrosis. UA without evidence of infection. Pain improved after Toradol. Discharged to followup with Urology Lab Data Labs: Lab Results 01/08/24 01/09/24 Range/Units 23:50 02:27 WBC 13.2 H (4.0-11.0) 10^3/uL RBC 5.34 (4.70-6.10) 10^6/uL Hgb 16.1 (14.0-18.0) g/dL Hct 47.0 (42.0-54.0) % MCV 88.0 (80.0-94.0) fL MCH 30.1 (25.9-34.0) pg MCHC 34.3 (29.9-35.2) g/dL RDW 13.4 (11.0-15.0) % Plt Count 280 (150-450) 10^3/uL MPV 9.9 (9.5-13.5) fL Seg Neuts % (Manual) 74.0 (43.0-75.0) Lymphocytes % (Manual) 5.0 L (20.5-60.0) % Atypical Lymphs % (Man) 12.0 % Monocytes % (Manual) 9.0 (1.7-12.0) % Eosinophils % (Manual) 0.0 L (0.9-7.0) % Basophils % (Manual) 0.0 L (0.2-2.0) % Neutrophils # (Manual) 9.76 H (1.4-6.5) 10^3/uL Lymphocytes # (Manual) 0.66 L (1.20-3.80) 10^3/uL Abs Atypical Lymphs Man 1.58 Monocytes # (Manual) 1.18 H (0.30-0.80) 10^3/uL Eosinophils # (Manual) 0.00 (0.00-0.70) 10^3/uL Basophils # (Manual) 0.00 (0.00-0.10) 10^3/uL Sodium 135 L (136-145) mmol/L Potassium 4.8 (3.5-5.1) mmol/L Chloride 102 (98-107) mmol/L Carbon Dioxide 23.1 (21.0-32.0) mmol/L Anion Gap 14.7 BUN 27.0 H (7.0-18.0) mg/dL Creatinine 1.95 H (0.70-1.30) mg/dL Est GFR ( Amer) 44 L (>=60) Est GFR (Non-Af Amer) 37 L (>=60) BUN/Creatinine Ratio 13.8 Glucose 118 H (74-106) mg/dL Lactate 1.7 (0.4-2.0) mmol/L Calcium 9.7 (8.5-10.1) mg/dL Urine Color Dk. orange (YELLOW) Urine Clarity Clear (CLEAR) Urine pH 5.5 (5.0-9.0) Ur Specific Manley >=1.030 A (1.005-1.025) Urine Protein Negative (NEG/TRACE) mg/dL Urine Glucose (UA) Negative (NEGATIVE) mg/dL Urine Ketones Trace A (NEGATIVE) mg/dL Urine Occult Blood Negative (NEGATIVE) Urine Nitrite Negative (NEGATIVE) Urine Bilirubin Negative (NEGATIVE) Urine Urobilinogen 1.0 (0.2-1.0) EU/dL Ur Leukocyte Esterase Negative (NEGATIVE) Imaging Data CT scan - abdomen: Radiologist's impression: ITS Impressions Abdomen/Pelvis CT 01/08/24 23:33 IMPRESSION: 1. Mild right hydronephrosis due to a 5 mm proximal right ureteral stone near the UPJ. No additional upper or lower urinary tract calculi are seen on either side. There are no other acute findings in the abdomen or pelvis. 2. Cholelithiasis. 3. Mild hepatic steatosis. Electronically authenticated by: TANNER HALL Date: 01/09/2024 00:25 Discharge Plan Discharge Stand Alone Forms: Portal Instructions Chief Complaint: Back Pain/Injury Clinical Impression: Kidney stone on right side Patient Disposition: Home, Self-Care Prescriptions / Home Meds: No Action atorvastatin 20 mg tablet 20 mg PO DAILY Edarbi 40 mg tablet 40 mg PO DAILY Hold Instructions: Until follow up with PCP to discuss celecoxib 200 mg capsule 200 mg PO BID fenofibrate 160 mg tablet 160 mg PO DAILY metoprolol succinate 50 mg tablet extended release 24 hr 50 mg PO DAILY Hold Instructions: Until follow up with PCP to discuss oxybutynin chloride 5 mg tablet 5 mg PO DAILY omeprazole 20 mg capsule,delayed release(DR/EC) 20 mg PO DAILY ondansetron 4 mg tablet,disintegrating 4 mg PO Q8H PRN (Reason: nausea and vomiting) 4 Days Qty: 20 0RF loperamide [Anti-Diarrheal (loperamide)] 2 mg capsule 2 mg PO Q4H PRN (Reason: loose stool) Qty: 24 0RF Rx Instructions: do not exceed 16 mg per 24 hrs hyoscyamine sulfate [Levsin] 0.125 mg tablet 0.125 mg PO Q6H PRN (Reason: dyspepsia) Qty: 20 0RF ondansetron 4 mg tablet,disintegrating 4 mg PO Q8H PRN (Reason: nausea and vomiting) 4 Days Qty: 12 0RF Print Language: Bulgarian Instructions: Kidney Stones (ED) Additional Instructions: drink plenty of fluids. Hold Celebrex while taking Toradol. Follow up with Urology in the next few days. Return if fever Referrals: OSMAR MANCINI [Primary Care Provider] - 1 week
[2024-01-08] MEDS: ONDANSETRON PF 4 MG/2 ML VIAL IV (23:53)
[2024-01-08] MEDS: 0.9 % SODIUM CHLORIDE 1,000 ML 999 ML IV (23:53)
[2024-01-09] MEDS: KETOROLAC TROMETHAMINE 30 MG/ML VIAL IVP (00:10)
[2024-01-09 00:18] LABS: Hemoglobin 16.1 g/dL (14.0-18.0); Mean Corpuscular HGB Conc 34.3 g/dL (29.9-35.2); Mean Corpuscular Hemoglobin 30.1 pg (25.9-34.0); Mean Platelet Volume 9.9 fL (9.5-13.5); Platelet Count 280 10^3/uL (150-450); Red Blood Count 5.34 10^6/uL (4.70-6.10); Red Cell Distribution Width 13.4 % (11.0-15.0); White Blood Count 13.2 10^3/uL (4.0-11.0)
[2024-01-09 00:29] LABS: Anion Gap 14.7; BUN Creatinine Ratio 13.8; Calcium 9.7 mg/dL (8.5-10.1); Carbon Dioxide 23.1 mmol/L (21.0-32.0); Chloride 102 mmol/L (98-107); Estimated GFR (African America 44 (>=60); Estimated GFR (Non-African Ame 37 (>=60); Glucose 118 mg/dL (74-106); Potassium 4.8 mmol/L (3.5-5.1); Sodium 135 mmol/L (136-145)
[2024-01-09 00:36] LABS: Lactate/Lactic Acid 1.7 mmol/L (0.4-2.0)
[2024-01-09 00:41] LABS: Atypical Lymphocytes Abs Man 1.58; Lymphocytes Absolute Manual 0.66 10^3/uL (1.20-3.80); Monocytes Absolute Manual 1.18 10^3/uL (0.30-0.80); Segmented Neut Absolute Manual 9.76 10^3/uL (1.4-6.5)
[2024-01-09] MEDS: 0.9 % SODIUM CHLORIDE 1,000 ML 999 ML IV (01:25)
[2024-01-09 02:40] LABS: Bilirubin Urine NEGATIVE (NEGATIVE); Blood Urine NEGATIVE (NEGATIVE); Clarity Urine CLEAR (CLEAR); Color Urine DK. ORANGE (YELLOW); Glucose Urine UA NEGATIVE (NEGATIVE); Ketones Urine TRACE mg/dL (NEGATIVE); Leukocyte Esterase Urine NEGATIVE (NEGATIVE); Nitrite Urine NEGATIVE (NEGATIVE); Protein Urine NEGATIVE (NEG/TRACE); Specific Gravity Urine >=1.030 (1.005-1.025); pH Urine 5.5 (5.0-9.0)
[2024-01-09 02:41] LABS: Urine Microscopic Indicated NO
[2024-01-09] MEDS: TAMSULOSIN HCL 0.4 MG CAPSULE PO (03:05)
[2024-01-09] MEDS: KETOROLAC TROMETHAMINE 10 MG TABLET PO (03:05)
== END 2024-01-09 03:11 | disposition home or self-care (01) ==
PROVIDERS: Emergency Provider Internal Medicine; PCP Family Medicine
DX: N20.0 Calculus of kidney (principal); F17.290 Nicotine dependence, other tobacco product, uncomplicated
CPT/HCPCS: 36415; 74176; 80048; 81003; 83605; 85007; 85027; 96374; 96375; 99284; J1885; J2405

== ENCOUNTER 2024-02-16 15:40 | Outpatient (OUT) | payer OTHER, SELFPAY ==
--- OUTSIDE RECORDS SUMMARY | 2024-02-16 15:49 | XMS_ITS | CCD ---
Author Organization [facility] Care Team Providers Care Anthropology Department Chair Name Role Phone Christina Apodaca Unavailable Unavailable Yandel Garcia Unavailable Unavailab estefani Garcia, Yandel Martino Unavailable Unavailab Christina Smith Unavailable Unavailable Yandel Garcia Unavailable Unavailab Kendy Vázquez Unavailable LIVE, DR SHAHBAZ Auguste Primary Care Unavailable REINECK, DR MONIK Auguste Admitting Unavailabl e REINECK, DR MONIK Auguste Attending Unavailabl e ZIEBCARMELO, DR SALINA Lopez Consulting Unavailable NECHEADARSH Consulting Unavailable FURLONG, DR SHAHBAZ Auguste Admitting [...] Unavailable Furlong Shahbaz PERKINS Primary Care Provider [phone] JOSIE MARTIN Referring Unavailable SHAHBAZ MONK Primary Care Unavailable JOSIE MARTIN Attending Unavailable SHAHBAZ MONK Referring Unavailable FURSHAHBAZ LEAL Primary Care Unavailable JOSIE MARTIN Attending Unavailable SHAHBAZ MONK Referring Unavailable FURLONGSHAHBAZ Primary Care Unavailable SHAHBAZ MONK Attending Unavailable SHAHBAZ MONK Referring Unavailable FURLONGSHAHBAZ Primary Care Unavailable JOSIE MARTIN Attending Unavailable SHAHBAZ MONK Referring Unavailable FURLONGSHAHBAZ Primary Care Unavailable JORGE GIBBS Attending Unavailable FURLOSHAHBAZ QUINTERO Referring Unavailable FURLONGSHAHBAZ Primary Care Unavailable SHAHBAZ MONK Attending Unavailable SHAHBAZ MONK Referring Unavailable SHAHBAZ MONK Primary Care Unavailable Kiarra Min Attending Unavailable JORGE GIBBS Referring Unavailable Medications Current Medications Medication Drug Class(es) [...] Problem Classification Problem Date Documented Date Episodic/Chronic Calculus of urinary tract (1 source) Calculus of ureter; Translations: [Calculus of ureter] Onset: 01-19-2024 Episodic Disorders of lipid metabolism (10 sources) [...] unspecified; Translations: [Benign lipomatous neoplasm, unspecified] Onset: 01-02-2024 Episodic Other connective tissue disease (1 source) [...] [Lateral epicondylitis, left elbow] 06-21-2023 Episodic Other nutritional; endocrine; and metabolic [...] [Body mass index (BMI) 39.0-39.9, adult] Onset: 04-07-2023 Chronic Other nutritional; endocrine; and metabolic disorders (1 source) Morbid (severe) obesity due to excess calories; Translations: [Morbid (severe) obesity due to excess calories] Onset: 08-04-2023 Chronic Other nutritional; endocrine; and metabolic disorders (1 source) Weight loss Onset: 01-02-2024 Episodic Other upper respiratory infections (1 source) [...] / J32.9(ICD-10) Onset: 11-23-2017 Unclassified (1 source) Er Follow-up Onset: 01-19-2024 Unclassified (1 source) elbow, arm wrist pain [...] 4 Episodic Other aftercare (1 source) Other correction (current) drug therapy; Translations: [OTH [employer]PERVIS[employer] C[employer]TING DEPARTMENT CURRENT DRUG THERAPY] Onset: 1 Episodic Other connective tissue disease (10 sources) Iliotibial band friction syndrome; Translations: [Iliotibial band syndrome, unspecified leg] Onset: 2 03-02-2022 Episodic Other connective tissue disease (1 source) Lateral epicondylitis, left elbow; Translations: [Lateral epicondylitis, left elbow] Onset: 4 Episodic Other gastrointestinal disorders (1 source) Diarrhea, unspecified Onset: 2 Resolved: 2 Episodic Other gastrointestinal disorders (1 source) Abdominal distension (gaseous); Translations: [Abdominal distension (gaseous)] Onset: 4 Episodic Other infections; including parasitic (10 sources) [...] 08-30-2023 Albumin [Mass/Vol] 4.1 g/dL Normal 3.2-5.3 [facility] Comment on above: Performed By: #### C SID, [id number] #### [facility] ([id number]) [address], [address] [place] [address] ALP [Catalytic activity/Vol] 32 U/L Low 39-130 [facility] Comment on above: Performed By: #### C SID, [id number] #### [facility] ([id number]) [address] [place] [address] ALT [Catalytic activity/Vol] 58 U/L High 0-40 [facility] Comment on above: Performed By: #### Neyda LAU, #### [facility] ([id number]) [address], [address] [place] [address] Anion gap [Moles/Vol] 9 mmol/L Normal 5-15 [facility] Comment on above: Performed By: #### Neyda LAU, 58300-8 #### [facility] ([id number]) [address], [address] [place] [address] AST [Catalytic activity/Vol] 40 U/L Normal 0-41 [facility] Comment on above: Performed By: #### Neyda LAU, #### [facility] ([id number]) [address], [address] [place] [address] Bilirubin [Mass/Vol] 0.3 mg/dL Normal 0.3-1.2 [facility] Comment on above: Performed By: #### Neyda LAU, #### [facility] ([id number]) [address], [address] [place] [address] Calcium [Mass/Vol] 9.7 mg/dL Normal 8.5-10.5 [facility] Comment on above: Performed By: #### Neyda LAU, #### [facility] ([id number]) [address], [address] [place] [address] Chloride [Moles/Vol] 107 mmol/L Normal 98-109 [facility] Comment on above: Performed By: #### Neyda LAU, #### [facility] ([id number]) [address], [address] [place] [address] CO2 [Moles/Vol] 26 mmol/L Normal 22-32 [facility] Comment on above: Performed By: #### Neyda LAU, 38055-9 #### [facility] ([id number]) [address], [address] [place] [address] Creatinine [Mass/Vol] 1.18 mg/dL Normal 0.60-1.30 [facility] Comment on above: Result Comment: METH OD TRACEABLE TO IDMS STANDARD Performed By: #### C SID, #### [facility] ([id number]) [address], [address] [place] [address] GFR/1.73 sq M.predicted among non-blacks MDRD (S/P/Bld) [Vol rate/Area] 75 mL/min/{1.73_m2} Normal >59 [facility] Comment on above: Result Comment: Reported eGFR is based on the CKD-EPI 2020 equation that does not use a race coefficient. Performed By: #### C SID, #### [facility] ([id number]) [address], [address] [place] [address] Glucose [Mass/Vol] 92 mg/dL Normal 65-99 [facility] Comment on above: Performed By: #### Neyda LAU, #### [facility] ([id number]) [address], [address] [place] [address] Potassium [Moles/Vol] 4.1 mmol/L Normal 3.5-5.0 [facility] Comment on above: Performed By: #### Neyda LAU, #### [facility] ([id number]) [address], [address] [place] [address] Protein [Mass/Vol] 6.8 g/dL Normal 6.0-8.0 [facility] Comment on above: Performed By: #### Neyda LAU, #### [facility] ([id number]) [address], [address] [place] [address] Sodium [Moles/Vol] 142 mmol/L Normal 134-146 [facility] Comment on above: Performed By: #### C MP, 47588-6 #### [facility] ([id number]) [address], [address] [place] [address] Urea nitrogen [Mass/Vol] 23 mg/dL Normal 5-23 [facility] Comment on above: Performed By: #### C SID, [id number] #### [facility] ([id number]) [address], [address] [place] [address] Comprehensive metabolic pane clint 08-30-2023 Albumin [Mass/Vol] 4.1 g/dL 3.2 - 5.3 g/dL [facility] ALP [Catalytic activity/Vol] 32 U/L Low 39 - 130 U/L [facility] ALT No additional P-5'-P [Catalytic activity/Vol] 58 U/L High 0 - 40 U/L [facility] Anion gap [Moles/Vol] 9 mmol/L 5 - 15 mmol/L [facility] AST [Catalytic activity/Vol] 40 U/L 0 - 41 U/L [facility] Bilirubin [Mass/Vol] 0.3 mg/dL 0.3 - 1.2 mg/dL [facility] Calcium [Mass/Vol] 9.7 mg/dL 8.5 - 10. 5 mg/dL [facility] Chloride [Moles/Vol] 107 mmol/L 98 - 109 mmol/L [facility] CO2 [Moles/Vol] 26 mmol/L 22 - 32 mmol/L [facility] Creatinine [Mass/Vol] 1.18 mg/dL 0.60 - 1.30 mg/dL [facility] Comment on above: METHOD TRACEABLE TO IDDC STANDARD eGFR (CKD-EPI)non-race dependent 75 - PINF [facility] Comment on above: Reported eGFR is based on the CKD-EPI 2020 equation that does not use a race coefficient. Glucose [Mass/Vol] 92 mg/dL 65 - 99 mg/dL [facility] Potassium [Moles/Vol] 4.1 mmol/L 3.5 - 5.0 mmol/L [facility] Protein [Mass/Vol] 6.8 g/dL 6.0 - 8.0 g/dL [facility] Sodium [Moles/Vol] 142 mmol/L 134 - 146 mmol/L [facility] Urea nitrogen [Mass/Vol] 23 mg/dL 5 - 23 mg/dL [facility] MAGNESIUMon 08-30-2023 Magnesium [Mass/Vol] 1.7 mg/dL Low 1.8-2.6 [facility] Comment on above: Performed By: #### C , 36655-4 #### [facility] ([id number]) [address], [address] [place] [address] Magnesiumon 08-30-2023 Magnesium [Mass/Vol] 1.7 mg/dL Low 1.8 - 2.6 mg/dL [facility] No Panel Informationon 08-29 Interpretation and review of laboratory results Abnormal [facility] COVID Quick Testingon 2021 Result Negative [facility] Other COMPREHENSIVE METABOLIC PANE [facility] 06-02-2021 Albumin [Mass/Vol] 4.2 g/dL Normal 3.6-5.1 [facility] Comment on above: Performed By: #### 1 8271, 1201 #### [facility] [address] Item Repair Manager: Curtis Doan MD Albumin/Globulin [Mass ratio] 1.6 {ratio} Normal 1.0-2.5 [facility] Comment on above: Performed By: #### 1 9521, 2400 #### [facility] [address] Item Repair Manager: Curtis Doan MD ALP [Catalytic activity/Vol] 44 U/L Normal 36-130 [facility] Comment on above: Performed By: #### 1 281, 7220 #### [facility] [address] Item Repair Manager: Curtis Doan MD ALT [Catalytic activity/Vol] 17 U/L Normal 9-46 [facility] Comment on above: Performed By: #### 1 035, 7600 #### [facility] of [address], [address] [place] [address] Item Repair Manager: Curtis Doan MD AST [Catalytic activity/Vol] 17 U/L Normal 10-40 [facility] Comment on above: Performed By: #### 1 023, 7600 #### [facility] of [place] [address] Item Repair Manager: Curtis Doan MD Bilirubin [Mass/Vol] 0.3 mg/dL Normal 0.2-1.2 [facility] Comment on above: Performed By: #### 1 023, 7600 #### [facility] of [place] [address] Item Repair Manager: Curtis Doan MD Calcium [Mass/Vol] 9.6 mg/dL Normal 8.6-10.3 [facility] Comment on above: Performed By: #### 1 023, 7600 #### [facility] of [place] [address] Item Repair Manager: Curtis Doan MD Chloride [Moles/Vol] 107 mmol/L Normal 98-110 [facility] Comment on above: Performed By: #### 1 023, 7600 #### [facility] of [place] [address] Item Repair Manager: Curtis Doan MD CO2 [Moles/Vol] 26 mmol/L Normal 20-32 [facility] Comment on above: Performed By: #### 1 023, 7600 #### [facility] of [place] [address] Item Repair Manager: Curtis Doan MD Creatinine [Mass/Vol] 0.89 mg/dL Normal 0.60-1.35 [facility] Comment on above: Performed By: #### 1 023, 7600 #### [facility] of [place] [address] Item Repair Manager: Curtis Doan MD eGFR NON-AFR. [place] 101 mL/min/1.73m2 Normal > OR = 60 [facility] Comment on above: Performed By: #### 1 0231, 7600 #### [facility] [place] [address] Item Repair Manager: Curtis Doan MD GFR/1.73 sq M.predicted among blacks MDRD (S/P/Bld) [Vol rate/Area] 117 mL/min/{1.73_m2} Normal > OR = 60 [facility] Comment on above: Performed By: #### 1 023, 7600 #### [facility] [place] [address] Item Repair Manager: Curtis Doan MD Globulin (S) [Mass/Vol] 2.7 g/dL Normal 1.9-3.7 [facility] Comment on above: Performed By: #### 1 023, 7600 #### [facility] [place] [address] Item Repair Manager: Curtis Doan MD Glucose [Mass/Vol] 103 mg/dL Normal 65-139 [facility] Comment on above: Result Comment: Non-fasting reference interval For someone without known diabetes, a glucose value between 100 and 125 mg/dL is consistent with prediabetes and should be confirmed with a follow-up test. Performed By: #### 1 023, 7600 #### [facility] [place] [address] Item Repair Manager: Curtis Doan MD Potassium [Moles/Vol] 4.1 mmol/L Normal 3.5-5.3 [facility] Comment on above: Performed By: #### 1 023, 7600 #### [facility] [place] [address] Item Repair Manager: Curtis Doan MD Protein [Mass/Vol] 6.9 g/dL Normal 6.1-8.1 [facility] Comment on above: Performed By: #### 1 023, 7600 #### [facility] [address] [address] Item Repair Manager: Curtis Doan MD Sodium [Moles/Vol] 140 mmol/L Normal 135-146 [facility] Comment on above: Performed By: #### 1 0231, 7600 #### [facility] of [address], [address] [place] [address] Item Repair Manager: Curtis Doan MD Urea nitrogen [Mass/Vol] 27 mg/dL High 7-25 [facility] Comment on above: Performed By: #### 1 0231, 7600 #### [facility] of [address], [address] [place] [address] Item Repair Manager: Curtis Doan MD Urea nitrogen/Creatinin e [Mass ratio] 30 mg/mg High 6-22 [facility] Comment on above: Performed By: #### 1 0231, 7600 #### [facility] [place] [address] Item Repair Manager: Curtis Doan MD LIPID PANEL, [place] [address] Cholesterol [Mass/Vol] 123 mg/dL Normal <200 [facility] Comment on above: Order Comment: FASTI NG:NO FASTING: NO Performed By: #### 1 0231, 7600 #### [facility] of [place] [address] Item Repair Manager: Curtis Doan MD Cholesterol in HDL [Mass/Vol] 29 mg/dL Low > OR = 40 [facility] Comment on above: Order Comment: FASTI NG:NO FASTING: NO Performed By: #### 1 0231, 7600 #### [facility] of [place] [address] Item Repair Manager: Curtis Doan MD Cholesterol in LDL [Mass/Vol] 52 mg/dL Normal [facility] Comment on above: Order Comment: FASTI NG:NO FASTING: NO Result Comment: Refe rence range: <100 Desirable range <100 mg/dL for primary prevention; <70 mg/dL for patients with CHD or diabetic patients with > or = 2 CHD risk factors. LDL-C is now calculated using the Noman-Deleon calculation, which is a validated novel method providing better accuracy than the Friedewald equation in the estimation of LDL-C. Noman SS et al. EARNESTINE. 2013;310(19): 0070-1656 (http://education.Orgoo.Inventorum/faq/DQQ849) Performed By: #### 1 230, 0 #### [facility] [address], [address] [place] [address] Item Repair Manager: Curtis Doan MD Cholesterol.total/ Cholesterol in HDL [Mass ratio] 4.2 {ratio} Normal <5.0 [facility] Comment on above: Order Comment: FASTI NG:NO FASTING: NO Performed By: #### 1 230, 7599 #### [facility] [address], [address] [place] [address] Item Repair Manager: Curtis Doan MD NON HDL CHOLESTEROL 94 mg/dL (calc) Normal <130 [facility] Comment on above: Order Comment: FASTI NG:NO FASTING: NO Result Comment: For patients with diabetes plus 1 major ASCVD risk factor, treating to a non-HDL-C goal of <100 mg/dL (LDL-C of <70 mg/dL) is considered a therapeutic option. Performed By: #### 1 230, 7599 #### [facility] [place] [address] Item Repair Manager: Curtis Doan MD Triglyceride [Mass/Vol] 397 mg/dL High <150 [facility] Comment on above: Order Comment: FASTI NG:NO FASTING: NO Result Comment: If a non-fasting specimen was collected, consider repeat triglyceride testing on a fasting specimen if clinically indicated. Alex et al. J. of Clin. Lipidol. 2015;9:129-169. Performed By: #### 1 230, 0 #### [facility] [place] [address] Item Repair Manager: Curtis Doan MD CBC AUTO DIFFon 05-15-2021 BASO # 0.0 103/ul Normal 0.0-0.1 [facility] Comment on above: Performed By: #### C BC #### [facility] [address] [place] [address] Dr. Diego Covarrubias Basophils/100 WBC (Bld) 0.5 % Normal 0.2-2.0 [facility] Comment on above: Performed By: #### C BC #### [facility] [address] [place] [address] Dr. Diego Covarrubias EO # 0.1 103/ul Normal 0.0-0.7 [facility] Comment on above: Performed By: #### C BC #### [facility] [address] [place] [address] Dr. Diego Covarrubias Eosinophils/100 WBC (Bld) 1.5 % Normal 0.9-7.0 [facility] Comment on above: Performed By: #### C BC #### [facility] [address] [place] [address] Dr. Diego Covarrubias Erythrocyte distribution width (RBC) [Ratio] 12.6 % Normal 11.0-15.0 [facility] Comment on above: Performed By: #### C BC #### [facility] [address] [place] [address] Dr. Diego Covarrubias Hematocrit (Bld) [Volume fraction] 41.9 % Critically low 42.0-54.0 [facility] Comment on above: Performed By: #### C BC #### [facility] [address] [place] [address] Dr. Diego Covarrubias Hemoglobin (Bld) [Mass/Vol] 14.2 g/dL Normal 14.0-18.0 [facility] Comment on above: Performed By: #### C BC #### [facility] [address] [place] [address] Dr. Diego Covarrubias IG # 0.03 10e3/ul Normal 0.00-0.03 [facility] Comment on above: Performed By: #### C BC #### [facility] [address] [place] [address] Dr. Diego Covarrubias IG % 0.5 % Normal 0.0-0.5 [facility] Comment on above: Performed By: #### C BC #### [facility] [address] [place] [address] Dr. Diego Covarrubias LYMPH # 2.0 103/ul Normal 1.2-3.8 [facility] Comment on above: Performed By: #### C BC #### [facility] [address] [place] [address] Dr. Diego Covarrubias Lymphocytes/100 WBC (Bld) 32.1 % Normal 20.5-60.0 [facility] Comment on above: Performed By: #### C BC #### [facility] [address] [place] [address] Dr. Diego Covarrubias MANUAL DIFF REQ NO Normal [facility] Comment on above: Performed By: #### C BC #### [facility] [address] [place] [address] Dr. Diego Covarrubias MCH (RBC) [Entitic mass] 31.5 pg Normal 25.9-34.0 [facility] Comment on above: Performed By: #### C BC #### [facility] [address] [place] [address] Dr. Diego Covarrubias MCHC (RBC) [Mass/Vol] 33.9 g/dL Normal 29.9-35.2 [facility] Comment on above: Performed By: #### C BC #### [facility] [address] [place] [address] Dr. Diego Covarrubias MCV (RBC) [Entitic vol] 92.9 fL Normal 80.0-94.0 [facility] Comment on above: Performed By: #### C BC #### [facility] [address] [place] [address] Dr. Diego Covarrubias MONO # 0.8 103/ul Normal 0.3-0.8 [facility] Comment on above: Performed By: #### C BC #### [facility] [address] [place] [address] Dr. Diego Covarrubias Monocytes/100 WBC (Bld) 13.5 % Critically high 1.7-12.0 [facility] Comment on above: Performed By: #### C BC #### [facility] [address] [place] [address] [address] Diego Covarrubias NEUT # 3.2 103/ul Normal 1.4-6.5 [facility] Comment on above: Performed By: #### C BC #### [facility] [address] [place] [address] [address] Diego Covarrubias Neutrophils/100 WBC (Bld) 51.9 % Normal 43.0-75.0 [facility] Comment on above: Performed By: #### C BC #### [facility] [address] [place] [address] [address] Diego Covarrubias Platelet mean volume (Bld) [Entitic vol] 9.6 fL Normal 9.5-13.5 [facility] Comment on above: Performed By: #### C BC #### [facility] [address] [place] [address] [address] Diego Covarrubias PLT 244 103/ul Normal 150-450 [facility] Comment on above: Performed By: #### C BC #### [facility] [address] [place] [address] [address] Diego Covarrubias RBC 4.51 106/ul Critically low 4.70-6.[address] [facility] Comment on above: Performed By: #### C BC #### [facility] [address] [place] [address] [address] Diego Covarrubias WBC 6.2 103/ul Normal 4.0-11.0 [facility] Comment on above: Performed By: #### C BC #### [facility] [address] [id number] SINUS WO CONTRASTon [...] recommended.Electronica lly signed by: DO Narcisa BYRD [facility] Initial Visit (Otolaryngolog y)on 11-21-2017 Initial Visit (Otolaryngology) Chief ComplaintThis is a new patient that is here for possible deviated septum [facility] patient consultation for his chronic sinus infections. He was referred by Dr. Garcia at [facility]. Pt reports repeat sinus infections. Jorgito states [...] BusPIRone HCl - 15 MG Oral Tablet;Therapy: [id number] to Recorded Dispense: 0 Days ; #: Sufficient Tablet; Refill: 0; ELENITA = N; Record; Last Updated By: Amisha Matias; 11/09/2017 1:27:18 PM Vitals Vital Signs Recorded: 09Nov2017 01:19MIOsmdse3 ft 7 rxKnvjva678 lb BMI Qjuvwlukbk95.75BSA Calculated2.19 Physical ExamPhysical Examination:A detailed examination of [...] concerned about his sinuses. ProcedureNASAL ENDOSCOPY (CPT 77827):To better evaluate the patient's symptoms sinonasal endoscopy [...] CT Sinus without Contrast; Status:Active; Requested for:23Nov2017; Perform:[facility];Ordered; For:Chronic sinusitis; Ordered By:Christina Apodaca;Reason: Unspecified for CT Sinus without ContrastRadiologist to Determine Optimal Study : YRequesting physician's phone/pager number? : [phone] Alerts (ie: MRSA, TB, Diabetic) : diabeticWhat [...] MedsBusPIRone HCl - 15 MG Oral Tablet;Therapy: [id number] to Recorded Signatures Electronically signed by : Christina Apodaca MD; Nov 21 2017 7:37AM EST (Author) [facility] Vital Signs Date Time Vital Sign Value Performing Clinician Facility 08-30-2023 15:51-0400 Body height 165.1 cm Josie DALEY Work Phone: [facility] 08-30-2023 15:51-0400 Body mass index (BMI) [Ratio] 40 kg/m2 Josie DALEY Work Phone: [facility] 08-30-2023 15:51-0400 Body temperature 98.1 [degF] Josie Martin APRNElmaREPAIRER Work Phone: [facility] 08-30-2023 15:51-0400 Body weight 109.05 kg Josie HANDREPAIRER Work Phone: [facility] 08-30-2023 15:51-0400 Diastolic blood pressure 70 mm[Hg] Josie HANDREPAIRER Work Phone: [facility] 08-30-2023 15:51-0400 Heart rate 107 /min Josie HANDREPAIRER Work Phone: [facility] 08-30-2023 15:51-0400 Respiratory rate 18 /min Josie Martin APRN-REPAIRER Work Phone: [facility] 08-30-2023 15:51-0400 SaO2% (BldA) [Mass fraction] 98 % Josie HANDREPAIRER Work Phone: [facility] 08-30-2023 15:51-0400 Systolic blood pressure 120 mm[Hg] Josie HANDREPAIRER Work Phone: [facility] 08-04-2023 14:27-0500 Body height 165.1 cm Shahbaz Furlong DO Work Phone: [facility] 08-04-2023 14:27-0500 Body mass index (BMI) [Ratio] 40.25 kg/m2 Shahbaz Furlong DO Work Phone: [facility] 08-04-2023 14:27-0500 Body temperature 98.6 [degF] Shahbaz Furlong DO Work Phone: [facility] 08-04-2023 14:27-0500 Body weight 109.72 kg Shahbaz Furlong DO Work Phone: [facility] 08-04-2023 14:27-0500 Diastolic blood pressure 68 mm[Hg] Shah[facility]long DO [facility] 08-04-2023 14:27-0500 Heart rate 100 /min Shahbaz Arthurlong DO Work Phone: [facility] 08-04-2023 14:27-0500 SaO2% (BldA) [Mass fraction] 97 % Shahbaz Furlong DO Work Phone: [facility] 08-04-2023 14:27-0500 Systolic blood pressure 110 mm[Hg] Shahbaz Arthurlong DO Work Phone: [facility] 06-21-2023 16:30-0500 Body height 165.1 cm Josie Martin APRN-REPAIRER Work Phone: [facility] 06-21-2023 16:30-0500 Body mass index (BMI) [Ratio] 39.51 kg/m2 Josie Martin APRN-REPAIRER Work Phone: [facility] 06-21-2023 16:30-0500 Body temperature 98.29 [degF] Josie Martin APRN-REPAIRER Work Phone: [facility] 06-21-2023 16:30-0500 Body weight 107.68 kg Josie Martin APRN-REPAIRER Work Phone: [facility] 06-21-2023 16:30-0500 Diastolic blood pressure 66 mm[Hg] Josie Martin APRN-REPAIRER Work Phone: [facility] 06-21-2023 16:30-0500 Heart rate 98 /min Josie Martin APRN-REPAIRER Work Phone: [facility] 06-21-2023 16:30-0500 SaO2% (BldA) [Mass fraction] 95 % Josie Martin APRN-REPAIRER Work Phone: [facility] 06-21-2023 16:30-0500 Systolic blood pressure 102 mm[Hg] Josie Martin ELECTRIC SYSTEM OPERATOR-REPAIRER Work Phone: [employer] [facility] 06-16-2021 11:30-0500 Body height 167.64 cm Kenyd Wattsmond Other [facility] Other 06-16-2021 11:30-0500 Body mass index (BMI) [Ratio] 36.31 kg/m2 Kendy Wattsmond Other [facility] Other 06-16-2021 11:30-0500 Body temperature 98.6 [degF] Kendy Wattsmond Other [facility] Other 06-16-2021 11:30-0500 Body weight 102.06 kg Kendy Wattsmond Other [facility] Other 06-16-2021 11:30-0500 Respiratory rate 20 /min Kendy Wattsmond Other [facility] Other 06-16-2021 11:30-0500 SaO2% (BldA) [Mass fraction] 98 % Kendy Patino Other [facility] Other Encounters Encounter Date Encounter Type Care Provider Facility Start: 02-23-2024 ambulatory Kiarra Stalin Min Facility :[facility] Start: 01-25-2024 ambulatory Kiarra Mechelle Facility:[facility] Start: 01-19-2024 End: 01-19-2024 ambulatory JORGE GIBBS [facility] Start: 01-02-2024 End: 01-02-2024 ambulatory SHAHBAZ MONK [facility] Start: 10-10-2023 End: 10-10-2023 ambulatory JOSIE MARTIN [facility] Start: 09-12-2023 Orders Only Shahbaz quintero DO Work Phone: [facility] Start: 08-31-2023 Orders Only Josie Martin ELECTRIC SYSTEM OPERATOR-REPAIRER Work Phone: [facility] Comment on above: Hypomagnesemia (Prim yudy Dx) Start: 08-31-2023 End: 08-31-2023 ambulatory JOSIE MARTIN [facility] Start: 08-30-2023 End: 08-30-2023 Office outpatient visit 25 minutes Josie Martin ELECTRIC SYSTEM OPERATOR-REPAIRER Work Phone: [facility] Comment on above: Acute kidney injury (nontraumatic) ([facility]) (Primary Dx); Hypomagnesemia; Essential hypertension; Morbid obesity ([facility]) Start: 08-30-2023 End: 08-30-2023 ambulatory JOSIE MARTIN [facility] Start: 08-13-2023 Refill Shahbazevi Arthurlo ng DO Work Phone: [facility] Comment on above: Essential (primary) hypertension Start: 08-12-2023 Refill Shahbazevi Arthurlo ng DO Work Phone: [facility] Comment on above: Urinary urgency Start: 08-04-2023 End: 08-04-2023 Office outpatient visit 25 minutes Shahbaz Molina Arthurjose miguel DO Work Phone: [facility] Comment on above: Morbid obesity ([facility]) (Primary Dx); Lumbar disc prolapse with compression radiculopathy; Left lateral epicondylitis; Essential hypertension; Spondylolisthesis, lumbar region; Pre-diabetes Start: 08-04-2023 End: 08-04-2023 [facility] Start: 07-28-2023 Refill Shahbaz Molina Arthurlo ng DO Work Phone: [facility] Comment on above: Urinary urgency Start: 07-04-2023 Telephone encounter Shahbaz menjivar DO Work Phone: [facility] Start: 06-21-2023 End: 06-21-2023 Office outpatient visit 15 minutes Josie Martin ELECTRIC SYSTEM OPERATOR-REPAIRER Work Phone: [facility] Comment on above: Lateral epicondyliti s of left elbow (Primary Dx) Start: 06-21-2023 End: 06-21-2023 ambulatory JOSIE MARTIN [facility] Start: 12-03-2021 End: 12-04-[address] SHAHBAZ MONK Facility:[facility] Start: 06-16-2021 End: 06-16-2021 ambulatory Kendy Patino Other [facility] Other Start: 06-16-2021 Office outpatient vi sit 15 minutes Kendy Patino [facility] Start: 05-21-2021 Encounter for preprocedural cardiovascular examination DR DOCTOR NGUYEN [facility] Start: 05-21-2021 Encounter for preprocedural laboratory examination DR DOCTOR NGUYEN [facility] Start: 05-15-2021 End: 05-16-[address] DOCTOR NGUYEN Facility:[facility] Start: 05-15-2021 End: 05-16-2021 Encounter for preprocedural laboratory examination DR DOCTOR NGUYEN Facility:[facility] Start: 02-19-2021 End: 02-19-[address] SHAHBAZ MONK Facility:[facility] Start: 11-23-2017 Ambulatory Christina Apodaca Fac ility:[facility] Start: 11-09-2017 Ambulatory Christina Apodaca Fac ility:[id number] Procedures Date Procedure Procedure Detail Performing Clinician Start: 08-30-2023 Follow-up visit Follow-up JOSIE MARTIN Start: 08-30-2023 Adult depression screening assessment Josie Martin ELECTRIC SYSTEM OPERATOR-REPAIRER Work Phone: Start: 08-04-2023 Adult depression screening assessment Shahbaz Monk DO Work Phone: Start: 06-21-2023 Adult depression screening assessment Josie Martin ELECTRIC SYSTEM OPERATOR-REPAIRER Work Phone: Plan of Treatment Date Care Activity Detail Author Start: 02-11-2030 DTaP,Tdap and Td Vac cines (3 - Td or Tdap) DTaP,Tdap and Td Vaccines (3 - Td or Tdap) [facility] Start: 08-29-2024 Adult BMI Screening Adult BMI Screen ing [facility] Start: 08-29-2024 Depression Screening Depression Scre ening [facility] Start: 08-29-2024 Tobacco Screening Tobacco Screening [facility] Start: 08-28-2024 Screening for malign ant neoplasm of colon Colon Cancer Screening 3 Year Cologuard [facility] Start: 08-04-2024 Adult BMI Screening Adult BMI Screen ing [facility] Start: 08-04-2024 Depression Screening Depression Scre ening [facility] Start: 08-04-2024 Tobacco Screening Tobacco Screening [facility] Start: 06-21-2024 Adult BMI Screening Adult BMI Screen ing [facility] Start: 06-21-2024 Depression Screening Depression Scre ening [facility] Start: 06-21-2024 Tobacco Screening Tobacco Screening [facility] Start: 02-12-2024 Influenza vaccination Influenza Vacc ine [facility] Start: 11-03-2023 End: 11-03-2023 Patient encounter procedure 11/03/2023 4:10 PM EDT Office Visit [facility] [address] [place] [address] Shahbaz Monk DO [address] [facility] [place] [address] [facility] Start: 10-10-2023 End: 10-10-2023 Patient encounter procedure 10/10/2023 4:00 PM EDT Office Visit [facility] [address] [place] [address] Josie Martin, ELECTRIC SYSTEM OPERATOR-REPAIRER [address] [place] [address] [facility] Start: 09-11-2023 Influenza vaccination Influenza Vacc ine [facility] Comment on above: Postponed from 02/11 (Patient Refused) Start: 08-04-2023 End: 08-04-2023 Patient encounter procedure 08/04/2023 2:20 PM EST Office Visit [facility] [address] [place] [address] Shahbaz Monk, [address], [facility] [place] [address] [facility] Start: 2023 Administration of varicella zoster vaccine Zoster (Shingles) Vaccine (1 of 2) [facility] Start: 02-11-2023 Influenza vaccination Influenza Vacc ine [facility] Start: 1991 Adult BMI Follow Up Plan Adult BMI Follow Up Plan [facility] Immunizations Immunization Date Immunization Notes Care Provider Fa cility 02-12-2020 diphtheria, tetanus toxoids and pertussis vaccine Josie Martin ELECTRIC SYSTEM OPERATOR-REPAIRER Work Phone: [facility] 02-12-2020 tetanus toxoid, redu jackson diphtheria toxoid, and acellular pertussis vaccine, adsorbed Josie Martin ELECTRIC SYSTEM OPERATOR-REPAIRER Work Phone: [facility] 02-03-2018 hepatitis B vaccine, adult dosage Josie Martin ELECTRIC SYSTEM OPERATOR-REPAIRER Work Phone: [facility] 09-07-2017 hepatitis B vaccine, adult dosage Josie Martin ELECTRIC SYSTEM OPERATOR-REPAIRER Work Phone: [facility] 08-04-2017 hepatitis B vaccine, pediatric or pediatric/adolescent dosage Josie Martin ELECTRIC SYSTEM OPERATOR-REPAIRER Work Phone: [facility] Payers Date Payer Category Payer Private Health Insurance [id number] 2023 Private Health Insurance [id number] 2012 Unknown [employer] [id number] 2012-Present [phone] [address] [place] [address] [id number] 1973 Unknown [id number] 1973 Unknown [id number] [id number] 1973 Unknown [id number] [id number] 1973 Unknown [id number] [id number] 1973 Unknown [id number] [id number] 1973 Unknown [id number] [id number] 1973 Unknown [id number] [id number] 1973 Unknown [id number] [id number] 1973 Unknown [id number] [id number] 1973 Unknown [id number] 1959 Unknown [id number] Social History Date Type Detail Facility Start: 03-07-2023 End: 05-03-2023 Sex Assigned At [facility] Start: 03-07-2023 Tobacco smoking stat [facility] Ex-smoker [facility] Start: 06-13-1989 End: 09-11-2022 History of tobacco use Current smoker [facility] Start: 06-13-1989 End: 09-11-2022 History of tobacco use Cigarette Smoker [facility] Start: 03-07-2023 End: 08-30-2023 Cigarettes smoked current (pack per day) - Reported 0.5 [facility] Start: 03-07-2023 Tobacco use and exposure Smokeless tobacco non-user [facility] Start: 06-21-2023 End: 08-04-2023 Alcohol intake Current drinker of alcohol (finding) [facility] Has the [employer], or [employer] threatened to shut off services in your home in past 12Mo No [facility] Are you now , , , , never or living with a partner? [facility] How often to you hav e a drink containing alcohol? 2-4 times a month [facility] How many standard drinks containing alcohol do you have on a typical day? 1 or 2 [facility] How often do you hav e 6 or more drinks on 1 occasion? Never [facility] How hard is it for y ou to pay for the very basics like food, housing, medical care, and heating Not hard at all [facility] Do you feel stress - tense, restless, nervous, or anxious, or unable to sleep at night because your mind is troubled all the time - these days [OSQ] Not at all [facility] Start: 03-02-2022 Alcohol Comment Occasional 6 p ack once a month [facility] Start: 1975 Sex Assigned At Not on file [facility] Start: 08-30-2023 Alcohol intake Ex-drinker (finding) [facility] Clinical Notes 02-19-2021 to 09-12-2023 Shahbaz Monk DO - 09/12/2023 11:04 AM EDTMary Arielle Martin APRN-DIXON - 08/30/2023 4:00 PM EDTTelephone Encounter - Kym Parks CMA - 08/13/2023 5:05 PM EST Note Date & Type Note Facility 09-12-2023 History of Presen t illness Narrative Semaglutide 0.6 mg once a week sent in to [facility] documented in this encounter [facility] 08-30-2023 History of Presen t illness Narrative [...] for this visit: Acute kidney injury (nontraumatic) ([facility]) - Comprehensive metabolic panel; Future Hypomagnesemia - Magnesium; Future Essential hypertension Morbid obesity ([facility]) He looks good today and his labs [...] Berg 08/30/23 1710 [facility] Miscellaneous Notes Formattin g of this note might be different from the original. I called pt and he is taking it.He has a 90 supply everything good he is receiving it through [employer] [facility]23 Telephone encount er Note I called pt and he is taking it.He has a 90 supply everything good he is receiving it through [facility] 08-[facility]2023 History of Presen t illness Narrative [...] would like a refill. 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 [employer] rep called requesting an [facility] med refill however I dont see it as a listed med. Please advise. It was not going to be covered so I changed it to something else per patient's request. [facility]23 Telephone encount er Note [facility] rep called requesting an [facility]ar[facility] med refill however I dont see it as a listed med. Please advise. [facility] 07-04-2023 Telephone encount er Note It was not going to be covered so I changed it to something else per patient's request. [facility] 06-21-2023 History of Presen t illness Narrative Subjective Patient ID: Jorgito Harry is a 48 y.o. male. A few weeks before thanksgi he started with pain in his left elbow then on thanksgi he tried opening a can of cranberry [...] recommend injection with steroids with [facility] Amaya 06/21/23 1724 documented in this encounter [facility] 12-04-2021 Note PROCEDURE: XR HEEL R T [...] authenticated by: SALINA AGUILERA Date: 2021-12-04 09:07 [facility] 06-16-2021 Evaluation note Encounter Date Diagnosis Assessment [...] Patient care instructions given in writting by [facility] At Home document. [facility] Other 09-09-2021 NotePROCEDURE: XR KNEE RT 4V [...] Electronically authenticated by: SALINA AGUILERA Date: 2021-02-19 14:03[facility] note* Diagnosis Lateral epicondylitis of left elbow- Primary [facility] Diagnosis Urinary urgency Urgency of urination [facility]* Diagnosis Morbid obesity ([facility])- Primary Morbid obesity Lumbar disc prolapse with compression radiculopathy Displacement of lumbar intervertebral disc without myelopathy Left lateral epicondylitis Essential hypertension Unspecified essential hypertension Spondylolisthesis, lumbar region Pre-diabetes Other abnormal glucose [facility] Diagnosis Urinary urgency Urgency of urination [facility]* Diagnosis Essential (primary) hypertension Unspecified essential hypertension [facility] Diagnosis Acute kidney injury (nontraumatic) ([facility] Primary Acute kidney failure, unspecified Hypomagnesemia Disorders of magnesium metabolism Essential hypertension Unspecified essential hypertension Morbid obesity ([facility]) Morbid obesity [facility]* Diagnosis Hypomagnesemia- Primary Disorders of magnesium metabolism [facility] N[facility]ative - Reported* Type Description Date Medical History GERD Medical History arthritis Medical History NIDDM Medical History HTN Medical History hyperlipidemia Medical History sleep apnea Medical History depression Medical History deviated nasal septum Medical History chronic sinusitis Medical History COPD Surgical History Injection Tendon Origin/Inserti on Surgical History LASIK Surgical History total hip replacement, left Hospitalization History surgeries [facility] Other InstructionsNot on filedocumented in this encounter [...] DATE CREATED AUTHOR AUTHOR'S ORGANIZ ATION 12/02/2017 [facility] DATE CREATED AUTHOR AUTHOR'S ORGANIZ ATION 06/02/2021 [facility] DATE CREATED AUTHOR AUTHOR'S ORGANIZ ATION 12/09/2021 [facility] DATE CREATED AUTHOR AUTHOR'S ORGANIZ ATION 09/01/2023 [facility] DATE CREATED AUTHOR AUTHOR'S ORGANIZ ATION 01/22/2024 [facility] DATE CREATED AUTHOR AUTHOR'S ORGANIZ ATION 01/29/2024 [facility] REASON FOR VISIT (unrecogniz ed section and content) Reason Comments elbow, arm wrist pain w/ lump on wrist Reason Comments Med Refill Reason Comments Weight Loss Reason Comments Follow-up From ER visit 3 days at [facility] Care Teams (unrecognized sec tion and content) Anthropology Department Chair Relationship Specialty Start Date End Date Shahbaz Monk DO [address] [place] [address] PCP - General Family Medicine 02/11/22 Anthropology Department Chair Relationship Specialty Start Date End Date Shahbaz Monk DO [address] [place] [address] PCP - General Family Medicine 02/11/22 Anthropology Department Chair Relationship Specialty Start Date End Date Shahbaz Monk DO [address], [place] [address] PCP - General Family Medicine 02/11/22 Anthropology Department Chair Relationship Specialty Start Date End Date Shahbaz Monk DO [address], [place] [address] PCP - General Family Medicine 02/11/22 Anthropology Department Chair Relationship Specialty Start Date End Date Shahbaz Monk DO [address], [place] [address] PCP - General Family Medicine 02/11/22 Anthropology Department Chair Relationship Specialty Start Date End Date Shahbaz Monk DO [address] [place] [address] PCP - General Family Medicine 02/11/22 FOR [...] BE BASED ON THE PRIMARY CLINICAL RECORDS. [facility] [employer] [facility]. provides no warranty or guarantee of the accuracy or completeness of information in this document.
--- NOTE | 2024-02-16 15:55 | XR_ITS ---
The [address] [address] Patient Name: STEFFANY JOVEL MRN: [id number] date: 1975 Sex: M Assigned Patient Location: [facility] Current Patient Location: Accession/Order Number: [id number] Exam Date: 02/16/2024 15:50 Report Date: 02/17/2024 06:35 At the request of: STEVEN PADILLA Procedure: XR abdomen 1V EXAMINATION: XR abdomen 1V HISTORY: Kidney Stone COMPARISON: CT abdomen pelvis 12/31/2023 FINDINGS: KIDNEY/URETER - RIGHT: No visible renal or ureteral calcifications. KIDNEY/URETER - LEFT: No visible renal or ureteral calcifications. PELVIS: No visible ureteral stones. BOWEL: No abnormal dilation or deviation. BONES: No acute abnormality. OTHER: Negative. No abnormal gaseous collections. XR/XR abdomen 1V IMPRESSION: 1. No appreciable urinary tract calculi. Electronically authenticated by: SALINA AGUILERA Date: 02/17/2024 06:35
== END 2024-02-16 15:41 | disposition home or self-care (01) ==
PROVIDERS: PCP Family Medicine; Visit Provider Nurse Practitioner Family
DX: N20.1 Calculus of ureter (principal)
CPT/HCPCS: 74018

== ENCOUNTER 2024-02-27 08:42 | Emergency (ER) | payer OTHER, SELFPAY ==
[2024-02-27 08:50] VITALS: BP 135/86; PULSE 108; TEMP 37.3; O2SAT 97; BMI 36.5
--- OUTSIDE RECORDS SUMMARY | 2024-02-27 09:08 | XMS_ITS | CCD ---
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 Role Phone Christina Apodaca Unavailable Unavailable Yandel Garcia Unavailable Unavailab estefani Garcia, Yandel Martino Unavailable Unavailab Christina Smith Unavailable Unavailable Yandel Garcia Unavailable Unavailab Kendy Vázquez Unavailable FURMEL, DR SHAHBAZ Auguste Primary Care Unavailable REINECK, DR MONIK Auguste Admitting Unavailabl e REINECK, DR MONIK Auguste Attending Unavailabl e ZIEBER, DR SALINA Lopez Consulting Unavailable DEVOLADARSH Consulting Unavailable FURLONG, DR SHAHBAZ Auguste Admitting [...] Primary Care Provider JOSIE MARTIN Referring Unavailable FURSHAHBAZ LEAL Primary Care Unavailable JOSIE MARTIN Attending Unavailable SHAHBAZ MONK Referring Unavailable FURLOSHAHBAZ QUINTERO Primary Care Unavailable JOSIE MARTIN Attending Unavailable SHAHBAZ MONK Referring Unavailable FURLONGSHAHBAZ Primary Care Unavailable SHAHBAZ MONK Attending Unavailable SHAHBAZ MONK Referring Unavailable FURLONGSHAHBAZ Primary Care Unavailable JOSIE MARTIN Attending Unavailable SHAHBAZ MONK Referring Unavailable FURLONGSHAHBAZ Primary Care Unavailable JORGE GIBBS Attending Unavailable FURLONGSHAHBAZ Referring Unavailable FURLONG, SHAHBAZ Auguste Primary Care Unavailable SHAHBAZ MONK Attending Unavailable SHAHBAZ MONK Referring Unavailable SHAHBAZ MONK Primary Care Unavailable Kiarra Min Attending Unavailable Kiarra Min Attending Unavailable JORGE GIBBS Referring Unavailable Kiarra Min Attending Unavailable Kiarra Min Admitting Unavailable Kiarra Min Admitting Unavailable Kiarra Min Attending Unavailable Medications Current Medications Medication Drug Class(es) [...] 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 Start: 05-03-20 End: 08-12-19 take 1 tablet by mouth in the [...] 4 Episodic Other aftercare (1 source) Other chcf (current) drug therapy; Translations: [OTH HALFWAY CURRENT DRUG THERAPY] Onset: 1 Episodic Other [...] Test Name Value Interpretation Reference Range Facility C Urineon 02-25-2024 Bacteria identified Cx Nom (U) Microbiology PROCEDURE: Urine Culture [R1] SOURCE: U Random BODY SITE: COLLECTED DATE/TIME: 02/23/2024 11:17 EDT RECEIVED DATE/TIME: 02/23/2024 19:34 EDT START DATE/TIME: 02/23/2024 19:34 EDT FREE TEXT SOURCE: Kairra Christiansen, Kiarra Gant FINAL REPORTS Final Report [] Verified Date/Time: 02/25/2024 09:46 EDT No growth at 2 days. Performing Locations R1: This test was performed at: [facility], [address] [place] [address], [phone] , [place], [facility] Comment on above: Performed By: #### 2 [id number] #### [facility] [address] [place] [address] Ambulatory Visit Summaryon 0 02-23-2024 Ambulatory Visit Summary Ambulatory Visit Summary JORGITO HARRY :1975 Visit Date:01/25/2024 Ambulatory Visit Instructions Your Care Team Primary Care Physician - SHAHBAZ MONK DO This Is Your Medications List acetaminophen-hydrocodo ne (acetaminophen-hydrocod one 325 mg-5 mg oral tablet) atorvastatin (atorvastatin 20 mg Tab) fenofibrate (fenofibrate 160 mg oral tablet) magnesium oxide (magnesium oxide 400 mg Tab) omeprazole (omeprazole 20 mg Cap-DR) What to do next Scheduled Follow-Up Appointments 2023 9:00 AM EST With: Kairra Christiansen Where: [facility] of [address] [address]- Medications What How Much When Instructions Unchanged acetaminophen-hydrocodo ne (acetaminophen-hydrocod one 325 mg-5 mg oral tablet) TAKE 1 TABLET BY MOUTH EVERY 6 HOURS NEEDED FOR PAIN Unchanged atorvastatin (atorvastatin 20 mg Tab) TAKE 1 TABLET BY MOUTH EVERY MORNING Unchanged fenofibrate (fenofibrate 160 mg oral tablet) TAKE 1 TABLET BY MOUTH ONCE DAILY IN THE MORNING Unchanged magnesium oxide (magnesium oxide 400 mg Tab) TAKE 1 TABLET BY MOUTH IN THE MORNING Unchanged omeprazole (omeprazole 20 mg Cap-DR) 1 Capsules By Mouth Every day Allergies No Known Allergies Patient Survey You may receive a survey via text or e-mail asking about your office visit. Please share your experience with us by completing your survey. We appreciate your feedback and thank you for choosing us for your care. [facility] Provider Letteron 09-12-2024 Provider Letter Provider Letter February 23, 2024 JORGITO HARRY [address] [place] [address] : 1975 To Whom It May Concern, Please excuse above patient from work. Date of appointment: From: 02/23/2024 To: _ May Return to Work On:02/23/2024 Restrictions: none Comments: Any questions, please call our office Sincerely, [facility] [address], [place] [address] Normal [facility] Urinalysis with Microon 02-11 Bilirubin Ql (U) Negative Normal Negative [facility] Comment on above: Performed By: #### 4 [id number] #### [facility] [address] [place] [address] Clarity (U) Ex.Turbid Abnormal Clear [facility] Comment on above: Performed By: #### 4 [id number] #### [facility] [address] [place] [address] Color (U) Yellow Normal Yellow [facility] Comment on above: Result Comment: Micr oscopic readings are only performed on those samples that meet specific criteria set forth by [facility]. Performed By: #### 4 [id number] #### [facility] [address] [place] [address] Crystals.amorphous Computer assisted Ql (U) Present Abnormal [facility] Comment on above: Performed By: #### 4 [id number] #### [facility] [address] [place] [address] Glucose Ql (U) Negative Normal Negative [facility] Comment on above: Performed By: #### 4 [id number] #### [facility] [address] [place] [address] Hemoglobin Auto test strip (U) [Mass/Vol] Negative Normal Negative [facility] Comment on above: Performed By: #### 4 [id number] #### [facility] [address] [place] [address] Ketones Auto test strip Ql (U) Negative Normal Negative [facility] Comment on above: Performed By: #### 4 [id number] #### [facility] [address] [place] [address] Leukocyte esterase Auto test strip Ql (U) Negative Normal Negative [facility] Comment on above: Performed By: #### 4 [id number] #### [facility] [address] [place] [address] Mucus Auto Ql (U) 1+ CD:[id number] Abnormal Negative [facility] Comment on above: Performed By: #### 4 [id number] #### [facility] [address] [place] [address] Nitrite Auto test strip Ql (U) Negative Normal Negative [facility] Comment on above: Performed By: #### 4 [id number] #### [facility] [address] [place] [address] pH (U) 5.0 [pH] Invalid Interpretation Code 5.0-9.0 [facility] Comment on above: Performed By: #### 4 [id number] #### [facility] [address] [place] [address] Protein Ql (U) Negative Normal Negative [facility] Comment on above: Performed By: #### 4 [id number] #### [facility] [address] [place] [address] RBC Ql (U) 0-3 Normal 0-3 [facility] Comment on above: Performed By: #### 4 [id number] #### [facility] [address] [place] [address] Specific gravity (U) [Rel density] 1.025 Invalid Interpretation Code 1.005-1.030 [facility] Comment on above: Performed By: #### 4 [id number] #### [facility] [address] [place] [address] Urobilinogen (U) [Mass/Vol] Negative Normal Negative [facility] Comment on above: Performed By: #### 4 [id number] #### [facility] [address] [place] [address] Type of Urine collection method Clean Catch Normal [facility] Comment on above: Performed By: #### 4 [id number] #### [facility] [address] [place] [address] COMPREHENSIVE METABOLIC PANE [facility] 08-30-2023 Albumin [Mass/Vol] 4.1 g/dL Normal 3.2-5.3 [facility] Comment on above: Performed By: #### Tacos LAU, #### [facility] ([id number]) [address], [address] [place] [address] ALP [Catalytic activity/Vol] 32 U/L Low 39-130 [facility] Comment on above: Performed By: #### Tacos LAU, #### [facility] ([id number]) [address], [address] [place] [address] ALT [Catalytic activity/Vol] 58 U/L High 0-40 [facility] Comment on above: Performed By: #### Tacos LAU, #### [facility] ([id number]) [address], [address] [place] [address] Anion gap [Moles/Vol] 9 mmol/L Normal 5-15 [facility] Comment on above: Performed By: #### Tacos LAU, #### [facility] ([id number]) [address], [address] [place] [address] AST [Catalytic activity/Vol] 40 U/L Normal 0-41 [facility] Comment on above: Performed By: #### Tacos LAU, #### [facility] ([id number]) [address], [address] [place] [address] Bilirubin [Mass/Vol] 0.3 mg/dL Normal 0.3-1.2 [facility] Comment on above: Performed By: #### Tacos LAU, #### [facility] ([id number]) [address], [address] [place] [address] Calcium [Mass/Vol] 9.7 mg/dL Normal 8.5-10.5 [facility] Comment on above: Performed By: #### Tacos LAU, #### [facility] ([id number]) [address], [address] [place] [address] Chloride [Moles/Vol] 107 mmol/L Normal 98-109 [facility] Comment on above: Performed By: #### Tacos LAU, #### [facility] ([id number]) [address], [address] [place] [address] CO2 [Moles/Vol] 26 mmol/L Normal 22-32 [facility] Comment on above: Performed By: #### Tacos LAU, #### [facility] ([id number]) [address], [address] [place] [address] Creatinine [Mass/Vol] 1.18 mg/dL Normal 0.60-1.30 [facility] Comment on above: Result Comment: METH OD TRACEABLE TO IDMS STANDARD Performed By: #### Tacos LAU, #### [facility] ([id number]) [address], [address] [place] [address] GFR/1.73 sq M.predicted among non-blacks MDRD (S/P/Bld) [Vol rate/Area] 75 mL/min/{1.73_m2} Normal >59 [facility] Comment on above: Result Comment: Reported eGFR is based on the CKD-EPI 2020 equation that does not use a race coefficient. Performed By: #### Tacos LAU, #### [facility] ([id number]) [address], [address] [place] [address] Glucose [Mass/Vol] 92 mg/dL Normal 65-99 [facility] Comment on above: Performed By: #### C SID, #### [facility] ([id number]) [address], [address] [place] [address] Potassium [Moles/Vol] 4.1 mmol/L Normal 3.5-5.0 [facility] Comment on above: Performed By: #### Tacos LAU, [id number] #### [facility] ([id number]) [address], [address] [place] [address] Protein [Mass/Vol] 6.8 g/dL Normal 6.0-8.0 [facility] Comment on above: Performed By: #### C SID, #### [facility] ([id number]) [address], [address] [place] [address] Sodium [Moles/Vol] 142 mmol/L Normal 134-146 [facility] Comment on above: Performed By: #### Tacos LAU, #### [facility] ([id number]) [address], [address] [place] [address] Urea nitrogen [Mass/Vol] 23 mg/dL Normal 5-23 [facility] Comment on above: Performed By: #### Tacos LAU, #### [facility] ([id number]) [address], [address] [place] [address] Comprehensive metabolic pane clint 08-30-2023 Albumin [Mass/Vol] 4.1 g/dL 3.2 - 5.3 g/dL [facility] ALP [Catalytic activity/Vol] 32 U/L Low 39 - 130 U/L [facility] ALT No additional P-5'-P [Catalytic activity/Vol] 58 U/L High 0 - 40 U/L [facility] Anion gap [Moles/Vol] 9 mmol/L 5 - 15 mmol/L [facility] AST [Catalytic activity/Vol] 40 U/L 0 - 41 U/L [facility] Bilirubin [Mass/Vol] 0.3 mg/dL 0.3 - 1.2 mg/dL [facility] Calcium [Mass/Vol] 9.7 mg/dL 8.5 - 10. 5 mg/dL [facility] Chloride [Moles/Vol] 107 mmol/L 98 - 109 mmol/L [facility] CO2 [Moles/Vol] 26 mmol/L 22 - 32 mmol/L [facility] Creatinine [Mass/Vol] 1.18 mg/dL 0.60 - 1.30 mg/dL [facility] Comment on above: METHOD TRACEABLE TO [facility] STANDARD eGFR (CKD-EPI)non-race dependent 75 - PINF [facility] Comment on above: Reported eGFR is based on the CKD-EPI 2020 equation that does not use a race coefficient. Glucose [Mass/Vol] 92 mg/dL 65 - 99 mg/dL [facility] Potassium [Moles/Vol] 4.1 mmol/L 3.5 - 5.0 mmol/L [facility] Protein [Mass/Vol] 6.8 g/dL 6.0 - 8.0 g/dL [facility] Sodium [Moles/Vol] 142 mmol/L 134 - 146 mmol/L [facility] Urea nitrogen [Mass/Vol] 23 mg/dL 5 - 23 mg/dL [facility] MAGNESIUMon 08-30-2023 Magnesium [Mass/Vol] 1.7 mg/dL Low 1.8-2.6 [facility] Comment on above: Performed By: #### C , 82912-1 #### [facility] ([id number]) [address] [place] [address], [address] [place] [address] Magnesiumon 08-30-2023 Magnesium [Mass/Vol] 1.7 mg/dL Low 1.8 - 2.6 mg/dL [facility] No Panel Informationon 08-29 Interpretation and review of laboratory results Abnormal [facility] COVID Quick Testingon 2021 Result Negative [place] Other COMPREHENSIVE METABOLIC PANE [facility] 06-02-2021 Albumin [Mass/Vol] 4.2 g/dL Normal 3.6-5.1 [facility] Comment on above: Performed By: #### 1 0231, 7600 #### [facility] [place] [address] Automatic Door Mechanic: Curtis Doan MD Albumin/Globulin [Mass ratio] 1.6 {ratio} Normal 1.0-2.5 [facility] Comment on above: Performed By: #### 1 0231, 7600 #### [facility] of [address], [address] [place] [address] Automatic Door Mechanic: Curtsi Doan MD ALP [Catalytic activity/Vol] 44 U/L Normal 36-130 [facility] Comment on above: Performed By: #### 1 0231, 7600 #### [facility] [place] [address] Automatic Door Mechanic: Curtis Doan MD ALT [Catalytic activity/Vol] 17 U/L Normal 9-46 [facility] Comment on above: Performed By: #### 1 0231, 7600 #### [facility] [place] [address] Automatic Door Mechanic: Curtis Doan MD AST [Catalytic activity/Vol] 17 U/L Normal 10-40 [facility] Comment on above: Performed By: #### 1 0231, 7600 #### [facility] of [address], [address] [place] [address] Automatic Door Mechanic: Curtis Doan MD Bilirubin [Mass/Vol] 0.3 mg/dL Normal 0.2-1.2 [facility] Comment on above: Performed By: #### 1 0231, 7600 #### [facility] [place] [address] Automatic Door Mechanic: Curtis Doan MD Calcium [Mass/Vol] 9.6 mg/dL Normal 8.6-10.3 [facility] Comment on above: Performed By: #### 1 0231, 7600 #### [facility] [place] [address] Automatic Door Mechanic: Curtis Doan MD Chloride [Moles/Vol] 107 mmol/L Normal 98-110 [facility] Comment on above: Performed By: #### 1 023, 7600 #### [facility] [place] [address] Automatic Door Mechanic: Curtis Doan MD CO2 [Moles/Vol] 26 mmol/L Normal 20-32 [facility] Comment on above: Performed By: #### 1 023, 7600 #### [facility] of [address], [address] [place] [address] Automatic Door Mechanic: Curtis Doan MD Creatinine [Mass/Vol] 0.89 mg/dL Normal 0.60-1.35 [facility] Comment on above: Performed By: #### 1 023, 7600 #### [facility] [place] [address] Automatic Door Mechanic: Curtis Doan MD eGFR NON-AFR. [place] 101 mL/min/1.73m2 Normal > OR = 60 [facility] Comment on above: Performed By: #### 1 023, 0 #### [facility] [place] [address] Automatic Door Mechanic: Curtis Doan MD GFR/1.73 sq M.predicted among blacks MDRD (S/P/Bld) [Vol rate/Area] 117 mL/min/{1.73_m2} Normal > OR = 60 [facility] Comment on above: Performed By: #### 1 023, 7600 #### [facility] [place] [address] Automatic Door Mechanic: Curtis Doan MD Globulin (S) [Mass/Vol] 2.7 g/dL Normal 1.9-3.7 [facility] Comment on above: Performed By: #### 1 023, 7600 #### [facility] [place] [address] Automatic Door Mechanic: Curtis Doan MD Glucose [Mass/Vol] 103 mg/dL Normal 65-139 [facility] Comment on above: Result Comment: Non-fasting reference interval For someone without known diabetes, a glucose value between 100 and 125 mg/dL is consistent with prediabetes and should be confirmed with a follow-up test. Performed By: #### 1 023, 7600 #### [facility] [place] [address] Automatic Door Mechanic: Curtis Doan MD Potassium [Moles/Vol] 4.1 mmol/L Normal 3.5-5.3 [facility] Comment on above: Performed By: #### 1 023, 7600 #### [facility] [place] [address] Automatic Door Mechanic: Curtis Doan MD Protein [Mass/Vol] 6.9 g/dL Normal 6.1-8.1 [facility] Comment on above: Performed By: #### 1 023, 7600 #### [facility] [place] [address] Automatic Door Mechanic: Curtis Doan MD Sodium [Moles/Vol] 140 mmol/L Normal 135-146 [facility] Comment on above: Performed By: #### 1 023, 7600 #### [facility] [place] [address] Automatic Door Mechanic: Curtis Doan MD Urea nitrogen [Mass/Vol] 27 mg/dL High 7-25 [facility] Comment on above: Performed By: #### 1 023, 7600 #### [facility] [place] [address] Automatic Door Mechanic: Curtis Doan MD Urea nitrogen/Creatinin e [Mass ratio] 30 mg/mg High 6-22 [facility] Comment on above: Performed By: #### 1 023, 7600 #### [facility] [place] [address] Automatic Door Mechanic: Curtis Doan MD LIPID PANEL, [facility] 12-2 Cholesterol [Mass/Vol] 123 mg/dL Normal <200 [facility] Comment on above: Order Comment: FASTI NG:NO FASTING: NO Performed By: #### 1 0231, 7600 #### [facility] [address], [address] [place] [address] Automatic Door Mechanic: Curtis Doan MD Cholesterol in HDL [Mass/Vol] 29 mg/dL Low > OR = 40 [facility] Comment on above: Order Comment: FASTI NG:NO FASTING: NO Performed By: #### 1 0231, 7600 #### [facility] [address], [address] [place] [address] Automatic Door Mechanic: Curtis Doan MD Cholesterol in LDL [Mass/Vol] 52 mg/dL Normal [facility] Comment on above: Order Comment: FASTI NG:NO FASTING: NO Result Comment: Refe rence range: <100 Desirable range <100 mg/dL for primary prevention; <70 mg/dL for patients with CHD or diabetic patients with > or = 2 CHD risk factors. LDL-C is now calculated using the Noman-Adrienne calculation, which is a validated novel method providing better accuracy than the Friedewald equation in the estimation of LDL-C. Noman GAR et al. EARNESTINE. 2013;310(19): 7716-3719 (http://education.ISVWorld.Goodmail Systems/faq/ZMA771) Performed By: #### 1 0231, 0 #### [facility] [address], [address] [place] [address] Automatic Door Mechanic: Curtis Doan MD Cholesterol.total/ Cholesterol in HDL [Mass ratio] 4.2 {ratio} Normal <5.0 [facility] Comment on above: Order Comment: FASTI NG:NO FASTING: NO Performed By: #### 1 0231, 7600 #### [facility] [address], [address] [place] [address] Automatic Door Mechanic: Curtis Doan MD NON HDL CHOLESTEROL 94 mg/dL (calc) Normal <130 [facility] Comment on above: Order Comment: FASTI NG:NO FASTING: NO Result Comment: For patients with diabetes plus 1 major ASCVD risk factor, treating to a non-HDL-C goal of <100 mg/dL (LDL-C of <70 mg/dL) is considered a therapeutic option. Performed By: #### 1 0231, 7600 #### [facility] [place] [id number] [facility], [address] [place] [address] Automatic Door Mechanic: Curtis Doan MD Triglyceride [Mass/Vol] 397 mg/dL High <150 [facility] Comment on above: Order Comment: FASTI NG:NO FASTING: NO Result Comment: If a non-fasting specimen was collected, consider repeat triglyceride testing on a fasting specimen if clinically indicated. Alex et al. J. of Clin. Lipidol. 2015;9:129-169. Performed By: #### 1 0231, 7600 #### [facility] [address], [address] [place] [id number] Automatic Door Mechanic: Curtis Doan MD CBC AUTO DIFFon 05-15-2021 BASO # 0.0 103/ul Normal 0.0-0.1 [facility] Comment on above: Performed By: #### C BC #### [facility] [address] [place] [address] Dr. Diego Covarrubias Basophils/100 WBC (Bld) 0.5 % Normal 0.2-2.0 [facility] Comment on above: Performed By: #### C BC #### [facility] [address] [place] [address] Dr. Diego Covarrubias EO # 0.1 103/ul Normal 0.0-0.7 [facility] Comment on above: Performed By: #### C BC #### [facility] [address] [place] [address] Dr. Diego Covarrubias Eosinophils/100 WBC (Bld) 1.5 % Normal 0.9-7.0 [facility] Comment on above: Performed By: #### C BC #### [facility] [address] [place] [address] Dr. Diego Covarrubias Erythrocyte distribution width (RBC) [Ratio] 12.6 % Normal 11.0-15.0 [facility] Comment on above: Performed By: #### C BC #### [facility] [address] [place] [address] Dr. Diego Covarrubias Hematocrit (Bld) [Volume fraction] 41.9 % Critically low 42.0-54.0 [facility] Comment on above: Performed By: #### C BC #### [facility] [address] [place] [address] Dr. Diego Covarrubias Hemoglobin (Bld) [Mass/Vol] 14.2 g/dL Normal 14.0-18.[address] [facility] Comment on above: Performed By: #### C BC #### [facility] [address] [place] [address] Dr. Diego Covarrubias IG # 0.03 10e3/ul Normal 0.00-0.03 [facility] Comment on above: Performed By: #### C BC #### [facility] [address] [place] [address] Dr. Diego Covarrubias IG % 0.5 % Normal 0.0-0.5 [facility] Comment on above: Performed By: #### C BC #### [facility] [address] [place] [address] Dr. Diego Covarrubias LYMPH # 2.0 103/ul Normal 1.2-3.[address] [facility] Comment on above: Performed By: #### C BC #### [facility] [address] [place] [address] Dr. Diego Covarrubias Lymphocytes/100 WBC (Bld) 32.1 % Normal 20.5-60.0 [facility] Comment on above: Performed By: #### C BC #### [facility] [address] [place] [address] Dr. Diego Covarrubias MANUAL DIFF REQ NO Normal [facility] Comment on above: Performed By: #### C BC #### [facility] [address] [place] [address] Dr. Diego Covarrubias MCH (RBC) [Entitic mass] 31.5 pg Normal 25.9-34.0 [facility] Comment on above: Performed By: #### C BC #### [facility] [address] [place] [address] Dr. Diego Covarrubias MCHC (RBC) [Mass/Vol] 33.9 g/dL Normal 29.9-35.[address] [facility] Comment on above: Performed By: #### C BC #### [facility] [address] [place] [address] Dr. Diego Covarrubias MCV (RBC) [Entitic vol] 92.9 fL Normal 80.0-94.0 [facility] Comment on above: Performed By: #### C BC #### [facility] [address] [place] [address] Dr. Diego Covarrubias MONO # 0.8 103/ul Normal 0.3-0.[address] [facility] Comment on above: Performed By: #### C BC #### [facility] [address] [place] [address] Dr. Diego Covarrubias Monocytes/100 WBC (Bld) 13.5 % Critically high 1.7-12.0 [facility] Comment on above: Performed By: #### C BC #### [facility] [address] [place] [address] Dr. Diego Covarrubias NEUT # 3.2 103/ul Normal 1.4-6.5 [facility] Comment on above: Performed By: #### C BC #### [facility] Laboratory [address] [place] [address] Dr. Diego Covarrubias Neutrophils/100 WBC (Bld) 51.9 % Normal 43.0-75.[address] [facility] Comment on above: Performed By: #### C BC #### [facility] Laboratory [address] [place] [address] Dr. Diego Covarrubias Platelet mean volume (Bld) [Entitic vol] 9.6 fL Normal 9.5-13.[address] [facility] Comment on above: Performed By: #### C BC #### [facility] Laboratory [address] [place] [address] Dr. Diego Covarrubias PLT 244 103/ul Normal 150-[address] [facility] Comment on above: Performed By: #### C BC #### [facility] [address] [place] [address] Dr. Diego Covarrubias RBC 4.51 106/ul Critically low 4.70-6.10 [facility] Comment on above: Performed By: #### C BC #### [facility] [address] [place], [place] [address] Dr. Diego Covarrubias WBC 6.2 103/ul Normal 4.0-11.0 [facility] Comment on above: Performed By: #### C BC #### [facility] [address] [place], [place] [address] SINUS WO CONTRASTon [...] probablychronic. Clinical correlation recommended.Electronica lly signed by: JORGITO FREITAS, Normal [facility] Initial Visit (Otolaryngolog y)on 11-21-2017 Initial Visit (Otolaryngology) Chief ComplaintThis is a new patient that is here for possible deviated septum History of Present IllnessMartacos Harry is here for a new patient consultation for his chronic sinus infections. He was referred by Dr. Garcia at [facility]. Pt reports repeat sinus infections. Jorgito states [...] BusPIRone HCl - 15 MG Oral Tablet;Therapy: [id number] to Recorded Dispense: 0 Days ; #: Sufficient Tablet; Refill: 0; ELENITA = N; Record; Last Updated By: Amisha Matias; 11/09/2017 1:27:18 PM Vitals Vital Signs Recorded: 09Nov2017 01:55GUErbnpm4 ft 7 [id number] lb BMI Mqxojskvsv35.75BSA Calculated2.19 Physical ExamPhysical Examination:A detailed examination of [...] concerned about his sinuses. ProcedureNASAL ENDOSCOPY (CPT 45500):To better evaluate the patient's symptoms sinonasal endoscopy [...] CT Sinus without Contrast; Status:Active; Requested for:23Nov2017; Perform:[facility];Ordered; For:Chronic sinusitis; Ordered By:Christina Apodaca;Reason: Unspecified for CT Sinus without ContrastRadiologist to Determine Optimal Study : YRequesting physician's phone/pager number? : [phone] Alerts (ie: MRSA, TB, Diabetic) : diabeticWhat [...] MedsBusPIRone HCl - 15 MG Oral Tablet;Therapy: [id number] to Recorded Signatures Electronically signed by : Christina Apodaca MD; Nov 21 2017 7:37AM EST (Author) Normal [facility] Vital Signs Date Time Vital Sign Value Performing Clinician Facility 08-30-2023 15:51-0400 Body height 165.1 cm Josie DALEY Work Phone: [facility] [employer] [facility] 08-30-2023 15:51-0400 Body mass index (BMI) [Ratio] 40 kg/m2 Josie DALEY Work Phone: [facility] [employer] [facility] 08-30-2023 15:51-0400 Body temperature 98.1 [degF] Josie DALEY Work Phone: [facility] [employer] [facility] 08-30-2023 15:51-0400 Body weight 109.05 kg Josie DALEY Work Phone: [facility] [employer] [facility] 08-30-2023 15:51-0400 Diastolic blood pressure 70 mm[Hg] Josie DALEY Work Phone: [facility] [employer] [facility] 08-30-2023 15:51-0400 Heart rate 107 /min [facility]ALEY [facility] 08-30-2023 15:51-0400 Respiratory rate 18 /min Josie HANDROLL GRINDER OPERATOR Work Phone: [facility] [employer] [facility] 08-30-2023 15:51-0400 SaO2% (BldA) [Mass fraction] 98 % Josie HANDROLL GRINDER OPERATOR Work Phone: [facility] 08-30-2023 15:51-0400 Systolic blood pressure 120 mm[Hg] Josie Martin APRN-ROLL GRINDER OPERATOR Work Phone: [facility] [employer] [facility] 08-04-2023 14:27-0500 Body height 165.1 cm Shahbaz Furlong DO Work Phone: [facility] 08-04-2023 14:27-0500 Body mass index (BMI) [Ratio] 40.25 kg/m2 Shahbaz Furlong DO Work Phone: [facility] 08-04-2023 14:27-0500 Body temperature 98.6 [degF] Shahbaz Furlong DO Work Phone: [facility] 08-04-2023 14:27-0500 Body weight 109.72 kg Shahbaz Furlong DO Work Phone: [facility] 08-04-2023 14:27-0500 Diastolic blood pressure 68 mm[Hg] Shahbaz Furlong DO Work Phone: [facility] 08-04-2023 14:27-0500 Heart rate 100 /min Shahbaz Furlong DO Work Phone: [facility] 08-04-2023 14:27-0500 SaO2% (BldA) [Mass fraction] 97 % Shahbaz Furlong DO Work Phone: [facility] 08-04-2023 14:27-0500 Systolic blood pressure 110 mm[Hg] Shahbaz Furlong DO Work Phone: [facility] 06-21-2023 16:30-0500 Body height 165.1 cm Josie Martin APRN-ROLL GRINDER OPERATOR Work Phone: [facility] 06-21-2023 16:30-0500 Body mass index (BMI) [Ratio] 39.51 kg/m2 Josie Martin APRN-ROLL GRINDER OPERATOR Work Phone: [facility] [employer] [facility] 06-21-2023 16:30-0500 Body temperature 98.29 [degF] Josie HANDROLL GRINDER OPERATOR Work Phone: [employer] 06-21-2023 16:30-0500 Body weight 107.68 kg Josie HANDROLL GRINDER OPERATOR Work Phone: [employer] 06-21-2023 16:30-0500 Diastolic blood pressure 66 mm[Hg] Josie Martin APRN-ROLL GRINDER OPERATOR Work Phone: [employer] 06-21-2023 16:30-0500 Heart rate 98 /min Josie HANDROLL GRINDER OPERATOR Work Phone: [employer] 06-21-2023 16:30-0500 SaO2% (BldA) [Mass fraction] 95 % Josie Martin APRN-ROLL GRINDER OPERATOR Work Phone: [employer] 06-21-2023 16:30-0500 Systolic blood pressure 102 mm[Hg] Josie HANDROLL GRINDER OPERATOR Work Phone: [employer] 06-16-2021 11:30-0500 Body height 167.64 cm Kendy Carey Other [facility] Other 06-16-2021 11:30-0500 Body mass index (BMI) [Ratio] 36.31 kg/m2 Kendy Patino Other [facility] Other 06-16-2021 11:30-0500 Body temperature 98.6 [degF] Kendy Carey Other [facility] Other 06-16-2021 11:30-0500 Body weight 102.06 kg Kendy Carey Other [facility] Other 06-16-2021 11:30-0500 Respiratory rate 20 /min Kendy Patino Other [facility] Other 06-16-2021 11:30-0500 SaO2% (BldA) [Mass fraction] 98 % Kendy Patino Other [facility] Other Encounters Encounter Date Encounter Type Care Provider Facility Start: 05-24-2024 ambulatory Kiarra J Galea Facility :[facility] Start: 02-23-2024 End: 02-23-2024 ambulatory Kiarra J Galea [facility] Start: 02-23-2024 End: 02-23-2024 ambulatory Kiarra J Galea Facility:[facility] Start: 01-25-2024 ambulatory Kiarra Galea Facility:[facility] Start: 01-19-2024 End: 01-19-2024 ambulatory [facility] Start: 01-02-2024 End: 01-02-2024 ambulatory [facility] Start: 10-10-2023 End: 10-10-[address] [facility] Start: 09-12-2023 Orders Only Shahbaz Molina [facility] DO Work Phone: [facility] Start: 08-31-2023 Orders Only Josie Martin PITCH GATHERER-ROLL GRINDER OPERATOR Work Phone: [facility] Comment on above: Hypomagnesemia (Prim yudy Dx) Start: 08-31-2023 End: 08-31-2023 ambulatory [facility] Start: 08-30-2023 End: 08-30-2023 Office outpatient visit 25 minutes Josie Martin PITCH GATHERER-ROLL GRINDER OPERATOR Work Phone: [facility] Comment on above: Acute kidney injury (nontraumatic) ([facility]) (Primary Dx); Hypomagnesemia; Essential hypertension; Morbid obesity ([facility]) Start: 08-30-2023 End: 08-30-[address] [facility] Start: 08-13-2023 Refill Shahbaz quintero DO Work Phone: [facility] Comment on above: Morbid obesity (CMS- HCC) (Primary Dx); Lumbar disc prolapse with compression radiculopathy; Left lateral epicondylitis; Essential hypertension; Spondylolisthesis, lumbar region; Pre-diabetes Start: 08-04-2023 End: 08-04-2023 ambulatory SHAHBAZ MONK [facility] Start: 07-28-2023 Refill Shahbaz Molina quintero DO Work Phone: [facility] Comment on above: Urinary urgency Start: 07-04-2023 Telephone encounter Shahbaz Molina menjivar DO Work Phone: [facility] Start: 06-21-2023 End: 06-21-2023 Office outpatient visit 15 minutes Josie Martin PITCH GATHERER-ROLL GRINDER OPERATOR Work Phone: [facility] Comment on above: Lateral epicondyliti s of left elbow (Primary Dx) Start: 06-21-2023 End: 06-21-[address] [facility] Start: 12-03-2021 End: 12-04-[address] SHAHBAZ MONK Facility:[facility] Start: 06-16-2021 End: 06-16-2021 ambulatory Kendy Patino Other [facility] Other Start: 06-16-2021 Office outpatient vi sit 15 minutes Kendy Patino [facility] Start: 12-09-2021 Encounter for preprocedural cardiovascular examination [facility] Start: 05-21-2021 Encounter for preprocedural laboratory examination [facility]UG[facility] Start: 05-15-2021 End: 05-16-[address] DOCTOR NGUYEN Facility:[facility] Start: 05-15-2021 End: 05-16-2021 Encounter for preprocedural laboratory examination DR DOCTOR NGUYEN Facility:[facility] Start: 02-19-2021 End: 02-19-[address] SHAHBAZ MONK Facility:[facility] Start: 11-23-2017 Ambulatory Christina Apodaca Fac ility:[facility] Start: 11-09-2017 Ambulatory Christina Apodaca Fac ility:[id number] Procedures Date Procedure Procedure Detail Performing Clinician Start: 08-30-2023 Follow-up visit Follow-up JOSIE MARTIN Start: 08-30-2023 Adult depression screening assessment Josie Martin PITCH GATHERER-ROLL GRINDER OPERATOR Work Phone: Start: 08-04-2023 Adult depression screening assessment Shahbaz Monk DO Work Phone: Start: 06-21-2023 Adult depression screening assessment Josie Martin PITCH GATHERER-ROLL GRINDER OPERATOR Work Phone: Plan of Treatment Date Care Activity Detail Author Start: 02-11-2030 DTaP,Tdap and Td Vac cines (3 - Td or Tdap) DTaP,Tdap and Td Vaccines (3 - Td or Tdap) [facility] Start: 08-29-2024 Adult BMI Screening Adult BMI Screen ing [facility] Start: 08-29-2024 [facility] Start: 08-29-2024 Tobacco Screening Tobacco Screening [facility] Start: 08-28-2024 Screening for malign ant neoplasm of colon Colon Cancer Screening 3 Year Cologuard [facility] Start: 08-04-2024 Adult BMI Screening Adult BMI Screen ing [facility] Start: 08-04-2024 Depression Screening Depression Scre ening [facility] Start: 08-04-2024 Tobacco Screening Tobacco Screening [facility] Start: 06-21-2024 Adult BMI Screening Adult BMI Screen ing [facility] Start: 06-21-2024 Depression Screening Depression Scre ening [facility] Start: 06-21-2024 Tobacco Screening Tobacco Screening [facility] Start: 02-12-2024 Influenza vaccination Influenza Vacc ine [facility] Start: 11-03-2023 End: 11-03-2023 Patient encounter procedure 11/03/2023 4:10 PM EDT Office Visit [facility] [address] [place] [address] Shabhaz Monk, DO [address], [place] [address] [facility] Start: 10-10-2023 End: 10-10-2023 Patient encounter procedure 10/10/2023 4:00 PM EDT Office Visit [facility] [address] [place] [address] Josie Martin, PITCH GATHERER-[facility] [address] [place] [address] [facility] Start: 09-11-2023 Influenza vaccination Influenza Vacc ine [facility] Comment on above: Postponed from 02/11 (Patient Refused) Start: 08-04-2023 End: 08-04-2023 Patient encounter procedure 08/04/2023 2:20 PM EST Office Visit [facility] [address] [place] [address] Shahbaz Monk, DO [address], [facility] [address] [facility] Start: 2023 Administration of varicella zoster vaccine Zoster (Shingles) Vaccine (1 of 2) [facility] Start: 02-11-2023 Influenza vaccination Influenza Vacc ine [facility] Start: 1991 Adult BMI Follow Up Plan Adult BMI Follow Up Plan [facility] Immunizations Immunization Date Immunization Notes Care Provider Fa cility 02-12-2020 diphtheria, tetanus toxoids and pertussis vaccine Josie Martin PITCH GATHERER-ROLL GRINDER OPERATOR Work Phone: [facility] 02-12-2020 tetanus toxoid, redu jackson diphtheria toxoid, and acellular pertussis vaccine, adsorbed Josie Martin PITCH GATHERER-ROLL GRINDER OPERATOR Work Phone: [facility] 02-03-2018 hepatitis B vaccine, adult dosage Josie Martin PITCH GATHERER-ROLL GRINDER OPERATOR Work Phone: [facility] 09-07-2017 hepatitis B vaccine, adult dosage Josie Martin PITCH GATHERER-ROLL GRINDER OPERATOR Work Phone: [facility] 08-04-2017 hepatitis B vaccine, pediatric or pediatric/adolescent dosage Josie Martin PITCH GATHERER-ROLL GRINDER OPERATOR Work Phone: [facility] Payers Date Payer Category Payer Private Health Insurance [id number] 2023 Private Health Insurance [id number] 2023 Private Health Insurance [id number] 2012 Unknown [employer] ERNESTO [id number] 2012-Present [phone] [address] [place] [address] [id number] 1973 Unknown [id number] [id number]. 2.593 1973 Unknown [id number] [id number]. 2.593 1973 Unknown [id number] [id number]. 2.593 1973 Unknown [id number] 2.16.840.1.478156.3.579. 2.1286 1973 Unknown [id number] 2.16.840.1.219189.3.579. 2.1286 1973 Unknown [id number] 2.16.840.1.245537.3.579. 2.1286 1973 Unknown [id number] 2.16.840.1.529399.3.579. 2.1286 1973 Unknown [id number] 2.16.840.1.341025.3.579. 2.1286 1973 Unknown [id number] 2.16.840.1.416310.3.579. 2.1286 1973 Unknown [id number] 2.16.840.1.575503.3.579. 2.1286 1973 Unknown [id number] 2.16.840.1.475618.3.579. 2.727 1973 Unknown [id number] [id number]. 2.727 1973 Unknown [id number] [id number]. 2.727 1959 Unknown [id number] Social History Date Type Detail Facility Start: 03-07-2023 End: 05-03-2023 Sex Assigned At [facility] Start: 03-07-2023 [facility] Start: 06-13-1989 End: 09-11-2022 History of tobacco use Current smoker [facility] Start: 06-13-1989 End: 09-11-2022 History of tobacco use Cigarette Smoker [facility] Start: 03-07-2023 End: 08-30-2023 Cigarettes smoked current (pack per day) - Reported 0.5 [facility] Start: 03-07-2023 Tobacco use and exposure Smokeless tobacco non-user [facility] Start: 06-21-2023 End: 08-04-2023 Alcohol intake Current drinker of alcohol (finding) [facility] Has the [employer], or [employer] threatened to shut off services in your home in past 12Mo No [facility] Are you now , , , , never or living with a partner? [facility] How often to you hav e a drink containing alcohol? 2-4 times a month [facility] How many standard drinks containing alcohol do you have on a typical day? 1 or 2 [facility] How often do you hav e 6 or more drinks on 1 occasion? Never [facility] How hard is it for y ou to pay for the very basics like food, housing, medical care, and heating Not hard at all [facility] Do you feel stress - tense, restless, nervous, or anxious, or unable to sleep at night because your mind is troubled all the time - these days [OSQ] Not at all [facility] Start: 03-02-2022 Alcohol Comment Occasional 6 p ack once a month [facility] Start: 1975 Sex Assigned At Not on file [facility] Start: 08-30-2023 Alcohol intake Ex-drinker (finding) [facility] Clinical Notes 02-19-2021 to 02-23-2024 Shahbaz Monk, DO - 09/12/2023 11:04 AM Omaira Martin, PITCH GATHERER-ROLL GRINDER OPERATOR - 08/30/2023 4:00 PM EDTTelephone Encounter - Kym Parks, FUNMILAYO - 08/13/2023 5:05 PM EST Note Date & Type Note Facility 02-23-2024 Note Urology Office/Clini c Note Chief Complaint DIRECTOR OF RADIO SERVICES- referral from [facility] ureteral stone HPI Staff 48 year old here today as DIRECTOR OF RADIO SERVICES, referral for Ureteral Stones. was taking flomax, now that he is not taking he feels he does not empty bladder at times. pt also states when he is done urinating and washing hands he feels a little dribble at times Dysuria: no Incomplete bladder emptying: often Hematuria:no Frequency: no Urgency: yes, but not much comes out at times Nocturia: not every night, but 1x if he does Stream: weak at times Leaking:no Post void dripping: at times while washing hands Wearing pads/ Depends:no Urge incontinence:no Stress incontinence:no Incontinence without Sensory Awareness:no Abdominal pain:no Flank pain:no Sexual complaints: History of Present Illness Staff HPI reviewed and agree. Review of Systems PHQ Score Initial Depression Screen Score: 0 SCORE no fever, chills, malaise, myalgia. no rash/lesions. no chest pain, palpitations, or SOB. no abdominal pain, nausea, vomiting. no unilateral calf swelling, redness, pain Physical Exam Vitals & Measurements HR: 82(Peripheral) BP: 134/88 HT: 66 in HT: 168 cm WT: 102 kg WT: 224.4 lb BMI: 36.14 General: nontoxic, well-nourished, appears stated age Mouth: moist mucosa Lungs: normal respiratory effort Cardio: regular rate, good distal perfusion Abdomen: nondistended, no suprapubic distention or tenderness, no CVA tenderness Neurologic: Grossly normal Skin: No rashes or suspicious lesions Assessment/Plan DIRECTOR OF RADIO SERVICES referred by Jorge Gibbs NP for ureteral stone. 01/08/24 - BUN 27, Cre 1.95, GFR 44 (pt had hydro due to ureteral stone at this time), no repeat labs in [facility] 1. History of kidney stones (Z87.442: Personal history of urinary calculi) 01/08/[address] [facility] [address] w/o con - mild R hydronephrosis due to a 5mm proximal R ureteral stone near the UPJ. No additional upper or lower urinary tract calculi are seen on either side. There are no other acute findings in the abdomen or pelvis 02/16/24 KUB - no appreciable urinary tract calculi Pt went to [facility] ER on 01/08/24 due to pain. Pt was given Tramadol & Flomax, pt reports that he has not had pain since 01/20. Pt denies ever seeing the stone pass but he was not provided with a strainer. Discussed completing a repeat CT scan to ensure passage, pt refuses at this time since he has not had pain. This was patient's first stone episode. Pt reports he does not drink a lot of water and drinks Mt. Dew. Discussed increasing fluids and adding lemon/match-e-be-nash-she-wish band to patient's regimen, pt verbalizes understanding. Briefly discussed metabolic workup with patient should he develop another stone. -Increase fluids, avoid bladder irritants -Add lemon/match-e-be-nash-she-wish band, lemonade to fluid intake -Call our office for any stone symptoms -F/U 1 year with KUB/KECIA Ordered: E&M of New Patient High 60-74 Min 09093 2. BPH with obstruction/lower urinary tract symptoms (N40.1: Benign prostatic hyperplasia with lower urinary tract symptoms) UA trace-intact blood only PVR 0ml Pt reports feeling of incomplete emptying, urgency and weak stream. Pt has been on Oxybutynin per PCP for about a year. Pt reports that when he was taking Flomax for his stone, his urination symptoms greatly improved. Discussed prostate anatomy with patient and advised we can restart him on a daily Flomax, pt agreeable. Advised that patient can try stopping Oxybutynin while he is on Flomax but if he notices that his symptoms are worse, he can resume both Oxybutynin and Flomax. Pt verbalizes understanding. -Start Flomax 0.4mg PO daily -Stop Oxybutynin -Increase fluids, avoid bladder irritants -Timed voids -F/U 3 months, consider cystoscopy Ordered: tamsulosin, 0.4 mg = 1 cap(s), Oral, Daily, # 30 cap(s), Refills(s) 11, Pharmacy: [id number], 168, cm, 02/23/24 10:12:00 EDT, Height/Length Dosing, 102, kg, 02/23/24 10:12:00 EDT, Weight Dosing E&M of New Patient High 60-74 Min [id number] 3. Screening PSA (prostate specific antigen) (Z12.5: Encounter for screening for malignant neoplasm of prostate) Pt has never had his PSA checked. Pt's father was diagnosed with prostate cancer in his 60's and had prostatectomy. Pt's father is from heart and lung disease. -PSA order provided to patient today, he is going to get it drawn at PCP office when he is getting yearly labs drawn in March -Will discuss results with patient at 3mo F/U Ordered: E&M of New Patient High 60-74 Min 08418 PSA Total 4. Asymptomatic microscopic hematuria (R31.21: Asymptomatic microscopic hematuria) 01/08/[address] [facility] [address] w/o con - mild R hydronephrosis due to a 5mm proximal R ureteral stone near the UPJ. No additional upper or lower urinary tract calculi are seen on either side. There are no other acute findings in the abdomen or pelvis UA today trace-intact blood only Pt reports about a week ago he noticed his urine was cloudy and had a strong odor. Denies gross hematuria. (more content not included)... [facility] Comment on above: Result Comment: Elec tronically Signed By: Kiarra Christiansen.jean\Date and Time Signed: 02/23/24 11:07 EDT 02-23-2024 Note Patient Education Urology Benign Prostatic Hyperplasia Benign prostatic hyperplasia (BPH) is an enlarged prostate gland that is caused by the normal aging process. The prostate may get bigger as a man gets older. The condition is not caused by cancer. The prostate is a walnut-sized gland that is involved in the production of semen. It is located in front of the rectum and below the bladder. The bladder stores urine. The urethra carries stored urine out of the body. An enlarged prostate can press on the urethra. This can make it harder to pass urine. The buildup of urine in the bladder can cause infection. Back pressure and infection may progress to bladder damage and kidney (renal) failure. What are the causes? This condition is part of the normal aging process. However, not all men develop problems from this condition. If the prostate enlarges away from the urethra, urine flow will not be blocked. If it enlarges toward the urethra and compresses it, there will be problems passing urine. What increases the risk? This condition is more likely to develop in men older than 50 years. What are the signs or symptoms? Symptoms of this condition include: ? Getting up often during the night to urinate. ? Needing to urinate frequently during the day. ? Difficulty starting urine flow. ? Decrease in size and strength of your urine stream. ? Leaking (dribbling) after urinating. ? Inability to pass urine. This needs immediate treatment. ? Inability to completely empty your bladder. ? Pain when you pass urine. This is more common if there is also an infection. ? Urinary tract infection (UTI). How is this diagnosed? This condition is diagnosed based on your medical history, a physical exam, and your symptoms. Tests will also be done, such as: ? A post-void bladder scan. This measures any amount of urine that may remain in your bladder after you finish urinating. ? A digital rectal exam. In a rectal exam, your health care provider checks your prostate by putting a lubricated, gloved finger into your rectum to feel the back of your prostate gland. This exam detects the size of your gland and any abnormal lumps or growths. ? An exam of your urine (urinalysis). ? A prostate specific antigen (PSA) screening. This is a blood test used to screen for prostate cancer. ? An ultrasound. This test uses sound waves to electronically produce a picture of your prostate gland. Your health care provider may refer you to a specialist in kidney and prostate diseases (urologist). How is this treated? Once symptoms begin, your health care provider will monitor your condition (active surveillance or watchful waiting). Treatment for this condition will depend on the severity of your condition. Treatment may include: ? Observation and yearly exams. This may be the only treatment needed if your condition and symptoms are mild. ? Medicines to relieve your symptoms, including: ? Medicines to shrink the prostate. ? Medicines to relax the muscle of the prostate. ? Surgery in severe cases. Surgery may include: ? Prostatectomy. In this procedure, the prostate tissue is removed completely through an open incision or with a laparoscope or robotics. ? Transurethral resection of the prostate (TURP). In this procedure, a tool is inserted through the opening at the tip of the penis (urethra). It is used to cut away tissue of the inner core of the prostate. The pieces are removed through the same opening of the penis. This removes the blockage. ? Transurethral incision (TUIP). In this procedure, small cuts are made in the prostate. This lessens the prostate's pressure on the urethra. ? Transurethral microwave thermotherapy (TUMT). This procedure uses microwaves to create heat. The heat destroys and removes a small amount of prostate tissue. ? Transurethral needle ablation (TUNA). This procedure uses radio frequencies to destroy and remove a small amount of prostate tissue. ? Interstitial laser coagulation (ILC). This procedure uses a laser to destroy and remove a small amount of prostate tissue. ? Transurethral electrovaporization (TUVP). This procedure uses electrodes to destroy and remove a small amount of prostate tissue. ? Prostatic urethral lift. This procedure inserts an implant to push the lobes of the prostate away from the urethra. Follow these instructions at home: ? Take [id number] and prescription medicines only as told by your health care provider. ? Monitor your symptoms for any changes. Contact your health care provider with any changes. ? Avoid drinking large amounts of liquid before going to bed or out in public. ? Avoid or reduce how much caffeine or alcohol you drink. ? Give yourself time when you urinate. ? Keep all follow-up visits. This is important. Contact a health care provider if: ? You have unexplained back pain. ? Your symptoms do not get better with treatment. ? You develop side effec (more content not included)... [facility] 09-12-2023 History of Present illness Narrative Semaglutide 0.6 mg once a week sent in to [facility] documented in this encounter [facility] 08-30-2023 History of Present illness Narrative Subjective Patient ID: Jorgito Harry [...] for this visit: Acute kidney injury (nontraumatic) ([facility]) - Comprehensive metabolic panel; Future Hypomagnesemia - Magnesium; Future Essential hypertension Morbid obesity ([facility]) He looks good today and his labs [...] in about 1 month EDI Berg 08/30/23 6230 documented in this encounter [facility] 08-13-2023 Miscellaneous Notes I called pt and he is taking it.He has a 90 supply everything good he is receiving it through [facility] documented in this encounter [facility] 08-13-2023 Telephone encounter Note I called pt and he is taking it.He has a 90 supply everything good he is receiving it through [facility] 08-04-2023 History of Present illness Narrative Subjective Patient ID: Jorgito Harry [...] would like a refill. 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 Please advise. It was not going to be covered so I changed it to something else per patient's request. documented in this encounter [facility] 07-04-2023 Telephone encounter Note [facility] rep called requesting an Edarbi med refill however I dont see it as a listed med. [facility] advise[facility]23 Telephone encounter Note It was not going to be covered so I changed it to something else per patient's request. [facility] 06-21-2023 History of Present illness Narrative Subjective Patient ID: Jorgito Harry [...] EDI Amaya 06/21/231723 documented in this encounter [facility] 12-04-2021 Note PROCEDURE: XR HEEL R T [...] authenticated by: SALINA AGUILERA Date: 2021-12-04 09:07 [facility] 06-16-2021 Evaluation note Encounter Date Diagnosis [...] Patient care instructions given in writting by [facility] document. [facility] Other 09-09-2021 NotePROCEDURE: XR KNEE RT 4V [...] Electronically authenticated by: SALINA AGUILERA Date: [facility] Lateral epicondylitis of left elbow- Primary documented [facility] Diagnosis Urinary urgency Urgency of urination documented in this encounter [facility]* Diagnosis Morbid obesity ([facility] Primary Morbid obesity Lumbar disc prolapse with compression radiculopathy Displacement of lumbar intervertebral disc without myelopathy Left lateral epicondylitis Essential hypertension Unspecified essential hypertension Spondylolisthesis, lumbar region Pre-diabetes Other abnormal glucose [facility] Diagnosis Urinary urgency Urgency of urination documented in this encounter [facility]* Diagnosis Essential (primary) hypertension Unspecified essential hypertension documented in this encounter [facility]* Diagnosis Acute kidney injury (nontraumatic) ([facility])- Primary Acute kidney failure, unspecified Hypomagnesemia Disorders of magnesium metabolism Essential hypertension Unspecified essential hypertension Morbid obesity ([facility]) Morbid obesity documented in this encounter [facility]* Diagnosis Hypomagnesemia- Primary Disorders of magnesium metabolism [facility] Narrative - Reported* Type Description Date Medical History GERD Medical History arthritis Medical History NIDDM Medical History HTN Medical History hyperlipidemia Medical History sleep apnea Medical History depression Medical History deviated nasal septum Medical History chronic sinusitis Medical History COPD Surgical History Injection Tendon Origin/Inserti on Surgical History LASIK Surgical History total hip replacement, left Hospitalization History surgeries [facility] Other InstructionsNot on filedocumented in this encounter [facility] filed[facility] filedocument[facility] in this encounter [facility] filedocumented in this [facility] filedocumented in this encounter [facility] Summary Purpose Family History No [...] DATE CREATED AUTHOR AUTHOR'S ORGANIZ ATION 12/02/2017 [facility] DATE CREATED AUTHOR AUTHOR'S ORGANIZ ATION 06/02/2021 [facility] DATE CREATED AUTHOR AUTHOR'S ORGANIZ ATION 12/09/2021 [facility] DATE CREATED AUTHOR AUTHOR'S ORGANIZ ATION 09/01/2023 [facility] DATE CREATED AUTHOR AUTHOR'S ORGANIZ ATION 01/22/2024 [facility] DATE CREATED AUTHOR AUTHOR'S ORGANIZ ATION 02/25/2024 Sidhu Ernie [facility] DATE CREATED AUTHOR AUTHOR'S ORGANIZ ATION 02/26/2024 Sidhu Ernie [facility] DATE CREATED AUTHOR AUTHOR'S ORGANIZ ATION 02/27/2024 [facility] REASON FOR VISIT (unrecogniz ed section and content) Reason Comments elbow, arm wrist pain w/ lump on wrist Reason Comments Med Refill Reason Comments Weight Loss Reason Comments Follow-up From ER visit 3 days at [facility] Care Teams (unrecognized sec tion and content) 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 Start Date End Date Shahbaz Monk DO [address], [facility] [place] [address] PCP - General Family Medicine 02/11/22 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 Start Date End Date Shahbaz Monk DO [address], [place] [address] PCP - General Family Medicine 02/11/22 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 Start Date End Date Shahbaz Monk DO [address], [place] [address] PCP - General Family Medicine 02/11/22 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 [facility]. provides no warranty or guarantee of the accuracy or completeness of information in this document.
[2024-02-27 09:17] LABS: Bilirubin Urine NEGATIVE (NEGATIVE); Blood Urine LARGE (NEGATIVE); Clarity Urine CLEAR (CLEAR); Color Urine YELLOW (YELLOW); Glucose Urine UA NEGATIVE (NEGATIVE); Ketones Urine NEGATIVE (NEGATIVE); Leukocyte Esterase Urine NEGATIVE (NEGATIVE); Nitrite Urine NEGATIVE (NEGATIVE); Protein Urine NEGATIVE (NEG/TRACE); Specific Gravity Urine >=1.030 (1.005-1.025); Urobilinogen Urine 0.2 EU/dL (0.2-1.0); pH Urine 5.5 (5.0-9.0)
[2024-02-27 09:18] LABS: Urine Microscopic Indicated YES
[2024-02-27 09:32] LABS: Bacteria Urine TRACE #/HPF (NONE SEEN); Cast Seen? SEEN #/LPF (NONE SEEN); Crystals Seen? None Seen #/HPF (None Seen); Mucus Urine SMALL (NONE SEEN); WBC Urine 0-2 #/HPF (NONE SEEN)
[2024-02-27 09:33] LABS: Hyaline Casts Urine FEW; Squamous Epithelial Cell Urine RARE #/LPF (NONE/RARE); Urine Culture Indicated NO
--- NOTE | 2024-02-27 10:01 | PC.NURSE ---
Pt reports red blood in urine this morning, every time he urinates he reports less blood. Urine specimen collected did not appear to look like hematuria. Pt reports penis irritation after urination.
--- NOTE | 2024-02-27 10:32 | ED_ITS ---
HPI HPI - General Adult General Chief complaint: Urogenital-Male Stated complaint: CLINIC REFERRAL, BLOOD IN URINE Time Seen by Provider: 02/27/24 09:29 Source: patient Mode of arrival: walk-in Limitations: no limitations History of Present Illness HPI narrative: Patient is a 48-year-old male who is presenting to the ER today with chief complaint of gross hematuria. Patient was seen here at the end of December, had a lab work, urine, CAT scan done that showed a 5 mm proximal right ureter stone with mild hydronephrosis. Patient has seen his PCP and urology Dr. Nunn since then. Patient had an x-ray done on February 15 that did not show any obvious stone. Patient does not recall passing the kidney stone. Patient has no abdominal pain, nausea or vomiting. No chest pain or shortness of breath. No fever or chills. No other acute complaints. Patient was in the urology office last for follow-up. Patient was told his x-ray showed no kidney stones noted. Patient was told that he had blood in his urine, but patient stated he was urinating yellow last . Patient thinks it is weird that he has pain but right now with no pain, nausea vomiting, and is told there was blood in his urine last week but he is pink-yellow but today he was being reddish color but it has cleared up somewhat since this morning. No trauma. 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 No blood thinners. Patient denies any testicular pain. All systems are negative except as noted/marked. All systems reviewed and otherwise negative. Nurses note and vital signs reviewed and patient is not hypoxic. General: The patient appears well and in no apparent distress. Patient is resting comfortably on cart. Patient is not toxic, lethargic, or listless Skin: Warm, dry, no pallor noted. There is no rash noted. No petechiae, purpura. Head: Normocephalic, atraumatic Eye: Normal conjunctiva, no drainage, EOMI. PERRL Ears, Nose, Mouth, and Throat: oral mucosa is moist. Nares patent. Mouth without vesicles. Cardiovascular: Regular Rate and Rhythm, no murmur, gallop, rub Respiratory: Patient is in no distress, no accessory muscle use, lungs are clear to auscultation, no wheezing, rales or rhonchi Back: non-tender, no CVA tenderness bilaterally to percussion. No CT LS midline pain GI: Obese, no suprapubic tenderness to palpation, no flank pain bilateral, otherwise no tenderness to palpation, no masses appreciated. No rebound, guarding, or rigidity noted. No distention Musculoskeletal: Patient has full range of motion of all of the extremities, no motor, sensory, or focal neurological deficits Neurological: A&O x4, normal speech Psychiatric: Cooperative Related Data Home Medications ?Medication ?Instructions ?Recorded ?Confirmed atorvastatin 20 mg tablet 20 mg PO DAILY 08/22/23 08/22/23 azilsartan medoxomil 40 mg tablet 40 mg PO DAILY 08/22/23 08/22/23 (Edarbi) celecoxib 200 mg capsule 200 mg PO BID 08/22/23 08/22/23 fenofibrate 160 mg tablet 160 mg PO DAILY 08/22/23 08/22/23 metoprolol succinate 50 mg 50 mg PO DAILY 08/22/23 08/22/23 tablet,extended release 24 hr omeprazole 20 mg capsule,delayed 20 mg PO DAILY 08/22/23 08/22/23 release oxybutynin chloride 5 mg tablet 5 mg PO DAILY 08/22/23 08/22/23 Previous Rx's ?Medication ?Instructions ?Recorded hyoscyamine sulfate 0.125 mg 0.125 mg PO Q6H PRN dyspepsia #20 08/24/23 tablet (Levsin) tabs loperamide 2 mg capsule 2 mg PO Q4H PRN loose stool #24 08/24/23 (Anti-Diarrheal (loperamide)) caps ondansetron 4 mg disintegrating 4 mg PO Q8H PRN nausea and 08/24/23 tablet vomiting 4 days #20 tabs ondansetron 4 mg disintegrating 4 mg PO Q8H PRN nausea and 09/26/23 tablet vomiting 4 days #12 tabs Allergies Allergy/AdvReac Type Severity Reaction Status Date / Time No Known Drug Allergies Allergy Verified 02/27/24 08:53 Opioid HPI Opioid Management Most Recent Opioid Data: Last Pain Scale 8 01/09/24 00:10 Last ORT Total Score 0 08/22/23 09:09 Last ORT Risk Category Low Risk 08/22/23 09:09 [facility] Medical History (Updated 02/27/24 @ 10:32 by Nicholas Rivera MD) GERD (gastroesophageal reflux disease) ?K21.9 - Gastro-esophageal reflux disease without esophagitis (ICD-10) OAB (overactive bladder) ?N32.81 - Overactive bladder (ICD-10) Hyperlipidemia ?E78.5 - Hyperlipidemia, unspecified (ICD-10) Prediabetes ?R73.03 - Prediabetes (ICD-10) HTN (hypertension) ?I10 - Essential (primary) hypertension (ICD-10) Cholelithiasis ?K80.20 - Calculus of gallbladder without cholecystitis without obstruction (ICD-10) Degenerative disc disease, lumbar ?M51.36 - Other intervertebral disc degeneration, lumbar region (ICD-10) Surgical History (Updated 08/22/23 @ 09:52 by Raegan Lopez) History of hip replacement ?Z96.649 - Presence of unspecified artificial hip joint (ICD-10) Family History (Updated 08/22/23 @ 09:55 by Raegan Lopez) Father Family history of CHF (congestive heart failure) Family history of COPD (chronic obstructive pulmonary disease) Family history of hypertension Family history of stroke Grandfather Family history of cancer Family history of hypertension Grandfather Family history of cancer Brother Family history of diabetes mellitus Family history of hypertension Social History (Updated 08/22/23 @ 09:54 by Raegan Lopez) Within the past year, how often did you have a drink containing alcohol: 2-4 times a month Within the past year, how many standard drinks containing alcohol did you have on a typical day: 1 or 2 Within the past year, how often did you have six or more drinks on one occasion: never Total score: 0 Score interpretation: A score less than 4 is consistent with normal alcohol consumption. Smoking status: Current every day smoker Do you use any of these nicotine containing products: vaping products Non-prescribed substance use: denies use Previous occupational history: [employer] Highest level of school completed/degree received: Associate degree: occupational, technical, vocational program Little interest or pleasure in doing things: not at all Feeling down, depressed, or hopeless: not at all Feel stressed/tense/nervous/anxious/difficulty sleeping: not at all Exam Constitutional Vital Signs, click to edit/add: Last Vital Signs Temp 99.1 F 02/27/24 08:50 Pulse 108 H 02/27/24 08:50 Resp 18 02/27/24 08:50 BP 135/86 02/27/24 08:50 Pulse Ox 97 02/27/24 08:50 O2 Del Method Room Air 02/27/24 08:50 Course Vital Signs Vital signs: Vital Signs Temperature 99.1 F 02/27/24 08:50 Pulse Rate 108 H 02/27/24 08:50 Respiratory Rate 18 02/27/24 08:50 Blood Pressure 135/86 02/27/24 08:50 Pulse Oximetry 97 02/27/24 08:50 Oxygen Delivery Method Room Air 02/27/24 08:50 Temperature 99.1 F 02/27/24 08:50 Pulse Rate 108 H 02/27/24 08:50 Respiratory Rate 18 02/27/24 08:50 Blood Pressure 135/86 02/27/24 08:50 Pulse Oximetry 97 02/27/24 08:50 Oxygen Delivery Method Room Air 02/27/24 08:50 Medical Decision Making MDM Narrative Medical decision making narrative: Patient urine shows hematuria, no obvious signs of infection. Patient has urine culture pending. Patient will go to urology office when discharged and make an appointment for gross hematuria. Patient has been told by Dr. Nunn previously then he may need to have a cystoscopy done. Patient has no kidney stone from x- ray done on February 15. Patient has no pain nausea vomiting this morning. Patient has no other acute complaints. No obvious signs of bladder cancer on CT there was then at the end of December. Patient has smoked over a pack a day for over 30 years, patient quit smoking 2 or 3 years ago but does vape. Possibility of bladder cancer was discussed, the patient understands I am not diagnosing him with bladder cancer at this time, patient will need more testing for painless hematuria. Patient understands this, no questions at discharge Lab Data Labs: Lab Results 02/27/24 Range/Units 09:00 Urine Color Yellow (YELLOW) Urine Clarity Clear (CLEAR) Urine pH 5.5 (5.0-9.0) Ur Specific Rowley >=1.030 A (1.005-1.025) Urine Protein Negative (NEG/TRACE) mg/dL Urine Glucose (UA) Negative (NEGATIVE) mg/dL Urine Ketones Negative (NEGATIVE) mg/dL Urine Occult Blood Large A (NEGATIVE) Urine Nitrite Negative (NEGATIVE) Urine Bilirubin Negative (NEGATIVE) Urine Urobilinogen 0.2 (0.2-1.0) EU/dL Ur Leukocyte Esterase Negative (NEGATIVE) Urine RBC 10-20 A (0-2) #/HPF Urine WBC 0-2 A (NONE SEEN) #/HPF Ur Squamous Epith Cells Rare (NONE/RARE) #/LPF Urine Crystals None seen (None Seen) #/HPF Urine Bacteria Trace A (NONE SEEN) #/HPF Urine Casts Seen A (NONE SEEN) #/LPF Hyaline Casts Few Urine Mucus Small A (NONE SEEN) Ur Culture Indicated? No Discharge Plan Discharge Chief Complaint: Urogenital-Male Clinical Impression: Hematuria Patient Disposition: Home, Self-Care Condition: Fair Prescriptions / Home Meds: No Action atorvastatin 20 mg tablet 20 mg PO DAILY Edarbi 40 mg tablet 40 mg PO DAILY Hold Instructions: Until follow up with PCP to discuss celecoxib 200 mg capsule 200 mg PO BID fenofibrate 160 mg tablet 160 mg PO DAILY metoprolol succinate 50 mg tablet extended release 24 hr 50 mg PO DAILY Hold Instructions: Until follow up with PCP to discuss oxybutynin chloride 5 mg tablet 5 mg PO DAILY omeprazole 20 mg capsule,delayed release(DR/EC) 20 mg PO DAILY ondansetron 4 mg tablet,disintegrating 4 mg PO Q8H PRN (Reason: nausea and vomiting) 4 Days Qty: 20 0RF loperamide [Anti-Diarrheal (loperamide)] 2 mg capsule 2 mg PO Q4H PRN (Reason: loose stool) Qty: 24 0RF Rx Instructions: do not exceed 16 mg per 24 hrs hyoscyamine sulfate [Levsin] 0.125 mg tablet 0.125 mg PO Q6H PRN (Reason: dyspepsia) Qty: 20 0RF ondansetron 4 mg tablet,disintegrating 4 mg PO Q8H PRN (Reason: nausea and vomiting) 4 Days Qty: 12 0RF Print Language: Malay Instructions: Hematuria (ED) Additional Instructions: Urine culture is pending. Drink 1 gallon of water a day to help flush urinary system. Go directly to urology office after discharge to make a follow-up appointment for hematuria with no pain. A copy of your recent CAT scan at the end of December and your x-ray report from last weeks was given to you. Referrals: OSMAR MANCINI [Primary Care Provider] - 1 week
[2024-02-27 10:52] VITALS: BP 131/87; PULSE 82; O2SAT 97
== END 2024-02-27 10:50 | disposition home or self-care (01) ==
PROVIDERS: Emergency Provider Emergency Medicine; PCP Family Medicine
DX: R31.9 Hematuria, unspecified (principal); Z87.442 Personal history of urinary calculi
CPT/HCPCS: 81001; 87086; 99283

== ENCOUNTER 2024-03-06 07:04 | Outpatient (OUT) | payer OTHER, SELFPAY ==
--- OUTSIDE RECORDS SUMMARY | 2024-03-06 07:07 | XMS_ITS | CCD ---
Author Organization [facility] Care Team Providers Care Cardiopulmonary Specialist Name Role Phone Christina Apodaca Unavailable Unavailable Yandel Garcia Unavailable Unavailab estefani Garcia, Yandel Martino Unavailable Unavailab estefani Apodaca, Christina Mendiola Unavailable Unavailable Joes, Yandel Martino Unavailable Unavailab Kendy Vázquez Unavailable FURLOERNESTINE, DR SHAHBAZ Auguste Primary Care Unavailable REINECK, DR MONIK Auguste Admitting Unavailabl e REINECK, DR MONIK Auguste Attending Unavailabl e ZIEBER, DR SALINA Lopez Consulting Unavailable BAGLEYADARSH Consulting Unavailable FURLONG, DR SHAHBAZ Auguste Admitting [...] Unavailable Furlong Shahbaz PERKINS Primary Care Provider [phone] JOSIE MARTIN Referring Unavailable SHAHBAZ MONK Primary Care Unavailable JOSIE MARTIN Attending Unavailable SHAHBAZ MONK Referring Unavailable FURSHAHBAZ LEAL Primary Care Unavailable JOSIE MARTIN Attending Unavailable SHAHBAZ MONK Referring Unavailable FURLONGSHAHBAZ Primary Care Unavailable SHAHBAZ MONK Attending Unavailable SHAHBAZ MONK Referring Unavailable FURLONGSHAHBAZ Primary Care Unavailable JOSIE MARTIN Attending Unavailable SHAHBAZ MONK Referring Unavailable FURLONG, SHAHBAZ Auguste Primary Care Unavailable JORGE GIBBS Attending Unavailable DARIOLOSHAHBAZ QUINTERO Referring Unavailable FURLONG, SHAHBAZ Auguste Primary Care Unavailable FURLOSHAHBAZ QUINTERO Attending Unavailable SHAHBAZ MONK Referring Unavailable SHAHBAZ MONK Primary Care Unavailable Kiarra Min Attending Unavailable Kiarra Min Attending Unavailable JORGE GIBBS Referring Unavailable Kiarra Min Attending Unavailable Kiarra Min Admitting Unavailable Kiarra Min Admitting Unavailable Kiarra Min Attending Unavailable SHAHBAZ MONK Primary Care Physician [phone] Kiarra Min Attending Unavailable Medications Current Medications Medication Drug Class(es) Dates Sig (Normalized) Sig (Original) acetaminophen 325 mg / HYDROcodone bitartrate 5 mg oral tablet (2 sources) Opioid Agonist Start: 02-23-2024 take 1 tablet by mouth every six hours as needed for pain acetaminophen-hyd rocodone 325 mg-5 mg oral tablet TAKE 1 TABLET BY MOUTH EVERY 6 HOURS NEEDED FOR PAIN Start Date: 02/23/24 Status: Ordered Start: 08-04-2023 End: 08-11-2023 HYDROcodone-acetaminophen (N ORCO) 5-325 mg per tablet Indications: Spondylolisthesis, lumbar region Take 1 tablet by mouth every 8 (eight) hours as needed for pain for up to 7 days. Max Daily Amount: 3 tablets 20 tablet 0 08/04/2023 08/11/2023 Active atorvastatin 20 mg oral tablet (11 sources) HMG-CoA Reductase Inhibitor Start: 02-23-2024 take 1 tablet by mouth once daily in the morning atorvastatin 20 mg Tab TAKE 1 TABLET BY MOUTH EVERY MORNING Start Date: 02/23/24 Status: Ordered Start: 05-03-2023 take 1 tablet by zoila th once daily in the morning atorvastatin (LIPITOR) [...] 03/07/2023 Active fenofibrate 160 mg oral tablet (13 sources) Peroxisome Proliferator Receptor alpha Agonist Start: 02-23-2024 take 1 tablet by mouth once daily in the morning fenofibrate 160 mg oral tablet TAKE 1 TABLET BY MOUTH ONCE DAILY IN THE MORNING Start Date: 02/23/24 Status: Ordered Start: 02-02-2023 End: 08-12-2023 take 1 tablet by mouth once daily in the morning fenofibrate (LOFIBRA) 160 mg tablet TAKE 1 TABLET BY MOUTH EVERY MORNING 90 tablet 1 08/12/2023 Active take 1 tablet by zoila every twenty-four hours Fenofibrate 160 MG 1 tablet Orally daily Active magnesium oxide 400 mg oral tablet (3 sources) Start: 02-23-2024 take 1 tablet by mouth in the morning magnesium oxide 400 mg Tab TAKE 1 TABLET BY MOUTH IN THE MORNING Start Date: 02/23/24 Status: Ordered Start: 08-31-2023 take 1 tablet by zoila th in the morning magnesium oxide (MAGOX) 400 [...] omeprazole 20 mg delayed release oral capsule (12 sources) Proton Pump Inhibitor Start: 02-23-2024 take 1 capsule by mouth once daily omeprazole 20 mg Cap-DR 20 mg = 1 cap(s), Oral, Daily, Refills(s) 0 Start Date: 02/23/24 Status: Ordered omeprazole (PriL OSEC) 20 mg capsule daily. 0 Active 24 hr oxybutynin chloride 5 mg extended release oral tablet (13 sources) 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 Start: 03-01-2024 take 1 tablet by mouth once daily oxybutynin 5 mg ER Tab 5 mg = 1 tab(s), Oral, Daily, # 90 tab(s), Refills(s) 3, Pharmacy: [id number], 168, cm, 03/01/24 15:29:00 EDT, Height/Length Dosing, 102, kg, 03/01/24 15:29:00 EDT, Weight Dosing Start Date: 03/01/24 Status: Ordered Start: 05-03-2023 End: 08-12-2023 take 1 tablet by mouth in the morning oxybutynin (DITROPAN) 5 mg tablet Indications: Urinary urgency TAKE 1 TABLET BY MOUTH IN THE MORNING 30 tablet 1 08/12/2023 Active tamsulosin hydrochloride 0.4 mg oral capsule (1 source) alpha-Adrenergic Luiza Start: 02-23-2024 take 1 capsule by mouth once daily Flomax 0.4 mg Cap 0.4 mg = 1 cap(s), Oral, Daily, # 30 cap(s), Refills(s) 11, Pharmacy: [id number], 168, cm, 02/23/24 10:12:00 EDT, Height/Length Dosing, 102, kg, 02/23/24 10:12:00 EDT, Weight Dosing Start Date: 02/23/24 Status: Ordered traMADol hydrochloride 50 mg oral tablet (10 sources) Opioid Agonist Start: 06-22-2022 take 1 tablet by mouth four times daily as needed for pain traMADoL (ULTRAM) 50 mg tablet Indications: Degeneration of lumbar intervertebral disc Take 1 tablet (50 mg total) by mouth 4 (four) times a day as needed for pain. 28 tablet 0 06/22/2022 Active valsartan 160 mg oral tablet (2 sources) Angiotensin 2 Receptor Luiza Start: 05-19-2023 take 1 tablet by mouth in the [...] Documented Date Episodic/Chronic Calculus of urinary tract (2 sources) Calculus of ureter; Translations: [History of calculus of kidney] Onset: 01-19-2024 Episodic Disorders of lipid metabolism (10 sources) Hypercholesterolemia; Translations: [Pure hypercholesterolemia, unspecified] Onset: 06-29-2018 03-02-2022 Chronic Esophageal disorders (10 sources) Gastroesophageal reflux disease; Translations: [Gastro-esophageal reflux disease without esophagitis] Onset: 06-29-2018 03-02-2022 Chronic Essential hypertension (14 sources) Essential hypertension; Translations: [Essential (primary) hypertension] Onset: 06-29-2018 03-02-2022 Chronic Genitourinary symptoms and ill-defined conditions (4 sources) Urgent desire to urinate; Translations: [Urgency of urination] Onset: 03-01-2024 07-28-2023 Episodic Hyperplasia of prostate (1 source) Benign prostatic hypertrophy with outflow obstruction; Translations: [Benign prostatic hyperplasia with lower urinary tract symptoms] Onset: 03-01-2024 Chronic Osteoarthritis (10 sources) Osteoarthritis; Translations: [Unspecified osteoarthritis, [...] [Lateral epicondylitis, left elbow] 06-21-2023 Episodic Other diseases of kidney and ureters (1 source) Urinary tract obstruction; Translations: [Other obstructive and reflux uropathy] Onset: 03-01-2024 Episodic Other nutritional; endocrine; and metabolic disorders [...] source) Weight loss Onset: 01-02-2024 Episodic Other screening for suspected conditions (not mental disorders or infectious disease) (1 source) Encounter for screening for malignant neoplasm of prostate; Translations: [Screening for malignant neoplasm done] Onset: 03-01-2024 Episodic Other upper respiratory infections (1 source) [...] 4 Episodic Other aftercare (1 source) Other senior living (current) drug therapy; Translations: [[employer]ER [employer] CURRENT DRUG THERAPY] Onset: 1 Episodic Other [...] Test Name Value Interpretation Reference Range Facility Ambulatory Visit Summaryon 0 03-01-2024 Ambulatory Visit Summary Ambulatory Visit Summary JORGITO HARRY :1975 Visit Date:03/01/2024 Ambulatory Visit Instructions Your Diagnosis Gross hematuria Your Care Team Attending Physician - Kiarra Christiansen Primary Care Physician - SHAHBAZ MONK DO This Is Your Medications List acetaminophen-hydrocodo ne (acetaminophen-hydrocod one 325 mg-5 mg oral tablet) atorvastatin (atorvastatin 20 mg Tab) fenofibrate (fenofibrate 160 mg oral tablet) magnesium oxide (magnesium oxide 400 mg Tab) omeprazole (omeprazole 20 mg Cap-DR) tamsulosin (Flomax 0.4 mg Cap) Discharge Vitals Temperature (Temporal Artery) 37 ?C Heart Rate (Peripheral) 69 Respiratory Rate 17 Blood Pressure 121/85 Height 168 cm Height 66 in Weight 102 kg Weight 224.4 lb BMI 36.14 What to do next Scheduled Follow-Up Appointments 2023 9:00 AM EST With: Kiarra Christiansen Where: [facility] [address] Medications What How Much When Why Instructions Unchanged acetaminophen-hydrocodo ne (acetaminophen-hydrocod one 325 [...] Cap-DR) 1 Capsules By Mouth Every day Unchanged tamsulosin (Flomax 0.4 mg Cap) 1 Capsules By Mouth Every day BPH with obstruction/lower urinary tract symptoms Allergies No Known Allergies Patient Survey You may receive a survey via text or e-mail asking about your office visit. Please share your experience with us by completing your survey. We appreciate your feedback and thank you for choosing us for your care. Normal [facility] Urology Office/Clinic Noteon 03-01-2024 Urology Office/Clinic Note Urology Office/Clinic Note Chief Complaint gross hematuria HPI Staff Pt here for ER f/u. Last OV 02/23/24. Dx: hx of kidney stones, BPH with obstruction/LUTS, screening PSA, AMH. Neg micro UA and cx 02/22/23. [facility] ER 02/27/24 due to gross hematuria without pain or N/V. No imaging was done. UA showed 10-20 RBC and 0-2 WBC. UCx pending at time of preloading. Pt state that the blood was only visible to him for the one day. Pt states that he did not noticed any passing of the stone. Dysuria: was having pain this past Tuesday and Tuesday Incomplete bladder emptying: Hematuria: Only visible blood on the day of the ED visit Frequency: pt states he was going about every 15 minutes or so on Tuesday but it was better by Tuesday morning Urgency: yes was taking Oxybutynin for this before but stopped when he started taking Tamsulosin Nocturia: 0-1x Stream: in between weak and normal, no straining Leaking: denies Post void dripping: yes Wearing pads/ Depends: denies Urge incontinence: denies Stress incontinence: denies Incontinence without Sensory Awareness: denies Abdominal pain: denies Flank pain: denies Sexual complaints: denies History of Present Illness Staff HPI reviewed and agree. Review of Systems PHQ Score Initial Depression Screen Score: 0 SCORE no fever, chills, malaise, myalgia. no rash/lesions. no chest pain, palpitations, or SOB. no abdominal pain, nausea, vomiting. no unilateral calf swelling, redness, pain Physical Exam Vitals & Measurements T: 37 ?C(Temporal Artery) HR: 69(Peripheral) RR: 17 BP: 121/85 HT: 66 in HT: 168 cm WT: 102 kg WT: 224.4 lb BMI: 36.14 General: nontoxic, well-nourished, appears stated age Mouth: moist mucosa Lungs: normal respiratory effort Cardio: regular rate, good distal perfusion Abdomen: nondistended, no suprapubic distention or tenderness, no CVA tenderness Neurologic: Grossly normal Skin: No rashes or suspicious lesions Assessment/Plan 1. History of kidney stones (Z87.442: Personal history of urinary calculi) 01/08/[address] [facility] [address] w/o con - mild R hydronephrosis due to a 5mm proximal R ureteral stone near the UPJ. No additional upper or lower urinary tract calculi are seen on either side. There are no other acute findings in the abdomen or pelvis 02/16/24 [facility] - no appreciable urinary tract calculi Pt went to [facility] ER on 01/08/24 due to pain. Pt was given Tramadol & Flomax, pt reports that he has not had pain since 01/20. Pt was seen in office on 02/23/24 and denied ever seeing the stone pass but he was not provided with a strainer in ER. Discussed completing a repeat CT scan to ensure passage at last office visit but pt refused since he had not had pain. Pt then went to [facility] ER on 02/27/24 for gross hematuria, abdominal/scrotal pain and also experienced urinary frequency and urgency. No labs or imaging were completed at that visit. Advised pt that he most likely was passing a stone at that time. Pt still has not seen a visible stone pass. Discussed completing IVP with patient to ensure stone passage. Pt agreeable. Discussed with patient that if a stone is present, we will set patient up with appt with Dr. Nunn to discuss treatment. If no stone on IVP, this will ensure stone passage and pt to follow up as scheduled. This is patient's first stone episode. Pt reports he does not drink a lot of water and drinks Mt. Dew. Discussed increasing fluids and adding lemon/ewiiaapaayp to patient's regimen, pt verbalizes understanding. Briefly discussed metabolic workup with patient should he develop another stone. -IVP now at [facility], call patient with results -If a stone is present, we will set patient up with appt with Dr. Nunn to discuss treatment. If no stone on IVP, this will ensure stone passage and pt to follow up as scheduled -Increase fluids, avoid bladder irritants -Add lemon/ewiiaapaayp, lemonade to fluid intake -Call our office for any stone symptoms -F/U 1 year with KUB/KECIA Ordered: E&M of Est. Patient Moderate 30-39 Min 80322 2. Gross hematuria (R31.0: Gross hematuria) UA today negative for blood or infection -See #1 Ordered: Creatinine E&M of Est. Patient Moderate 30-39 Min 59397 Urnls Dip Stick Auto w/o Microscopy POC 70968 XR IVP 3. BPH with obstruction/lower urinary tract symptoms (N40.1: Benign prostatic hyperplasia with lower urinary tract symptoms) UA negative for blood or infection Pt reports feeling of incomplete emptying, urgency and weak stream. Pt has been on Oxybutynin per PCP for about a year but this was discontinued at last office visit. Pt reports since stopping Oxybutynin he has noticed an increased urgency. Advised patient that this could be due to passing a kidney stone but pt would like to resume Oxybutynin. Pt reports that when he was taking Flomax for his stone, his urination symptoms greatly improved so pt was started on daily Flomax at last office visit. -Continue Flomax 0.4mg PO daily -Restart Oxybutynin 5mg PO daily -Increase (more content not included)... Normal [facility] Comment on above: Result Comment: Elec tronically Signed By: Kiarra Christiansen\.br\Date and Time Signed: 03/01/24 15:58 EDT C Urineon 02-25-2024 Bacteria identified Cx Nom (U) Microbiology PROCEDURE: Urine Culture [R1] SOURCE: U Random BODY SITE: COLLECTED DATE/TIME: 02/23/2024 11:17 EDT RECEIVED DATE/TIME: 02/23/2024 19:34 EDT START DATE/TIME: 02/23/2024 19:34 EDT FREE TEXT SOURCE: Kiarra Christiansen Alysha J FINAL REPORTS Final Report [] Verified Date/Time: 02/25/2024 09:46 EDT No growth at 2 days. Performing Locations R1: This test was performed at: [facility], [address] [place] [address], [id number]- , [place], [facility] Comment on above: Performed By: #### 2 [id number] #### [facility] [address] [place] [address] Ambulatory Visit Summaryon 0 02-23-2024 Ambulatory Visit [...] Follow-Up Appointments 2023 9:00 AM EST With: Mechelle BARCENAS, Kiarra Gant Where: [facility] [address] [facility] [place] [address] [place] [address]- Medications What How Much When Instructions Unchanged [...] you for choosing us for your care. Normal [facility] Provider Letteron 02-23-2024 Provider Letter Provider Letter February 23, 2024 JORGITO HARRY [facility] [place] [address] : 1975 To Whom It May Concern, Please excuse above patient from work. Date of appointment: From: 02/23/2024 To: _ May Return to Work On:02/23/2024 Restrictions: none Comments: Any questions, please call our office Sincerely, [facility] [address], [place] [address] Normal [facility] Urinalysis with Microon 02-11 Bilirubin Ql (U) Negative Normal Negative [facility] Comment on above: Performed By: #### 4 [id number] #### [facility] [address] [place] [address] Clarity (U) Ex.Turbid Abnormal Clear [facility] Comment on above: Performed By: #### 4 [id number] #### [facility] [address] [place] [address] Color (U) Yellow Normal Yellow [facility] Comment on above: Result Comment: Micr oscopic readings are only performed on those samples that meet specific criteria set forth by [facility]. Performed By: #### 4 [id number] #### [facility] [address] [place] [address] Crystals.amorphous Computer assisted Ql (U) Present Abnormal [facility] Comment on above: Performed By: #### 4 [id number] #### [facility] [address] [place] [address] Glucose Ql (U) Negative Normal Negative [facility] Comment on above: Performed By: #### 4 [id number] #### [facility] [address] [place] [address] Hemoglobin Auto test strip (U) [Mass/Vol] Negative Normal Negative [facility] Comment on above: Performed By: #### 4 [id number] #### [facility] [address] [place] [address] Ketones Auto test strip Ql (U) Negative Normal Negative [facility] Comment on above: Performed By: #### 4 [id number] #### [facility] [address] [place] [address] Leukocyte esterase Auto test strip Ql (U) Negative Normal Negative [facility] Comment on above: Performed By: #### 4 [id number] #### [facility] [address] [place] [address] Mucus Auto Ql (U) 1+ [id number] Abnormal Negative F [facility] Comment on above: Performed By: #### 4 [id number] #### [facility] [address] [place] [address] Nitrite Auto test strip Ql (U) Negative Normal Negative [facility] Comment on above: Performed By: #### 4 [id number] #### [facility] [address] [place] [address] pH (U) 5.0 [pH] Invalid Interpretation Code 5.0-9.0 [facility] Comment on above: Performed By: #### 4 [id number] #### [facility] [address] [place] [address] Protein Ql (U) Negative Normal Negative [facility] Comment on above: Performed By: #### 4 [id number] #### [facility] [address] [place] [address] RBC Ql (U) 0-3 Normal 0-3 [facility] Comment on above: Performed By: #### 4 [id number] #### [facility] [address] [place], [place] [id number] Specific gravity (U) [Rel density] 1.025 Invalid Interpretation Code 1.005-1.030 [facility] Comment on above: Performed By: #### 4 [id number] #### [facility] [address] [place] [address] Urobilinogen (U) [Mass/Vol] Negative Normal Negative [facility] Comment on above: Performed By: #### 4 [id number] #### [facility] [address] [place], [place] [id number] Type of Urine collection method Clean Catch Normal [facility] Comment on above: Performed By: #### 4 [id number] #### [facility] [address] [place] [address] COMPREHENSIVE METABOLIC PANE Clint 08-30-2023 Albumin [Mass/Vol] 4.1 g/dL Normal 3.2-5.3 [facility] Comment on above: Performed By: #### C , 28527-8 #### [facility] ([id number]) [address], [address] [place] [address] ALP [Catalytic activity/Vol] 32 U/L Low 39-130 [facility] Comment on above: Performed By: #### Neyda LAU, #### [facility] ([id number]) [address], [address] [place] [address] ALT [Catalytic activity/Vol] 58 U/L High 0-40 [facility] Comment on above: Performed By: #### Neyda LAU, #### [facility] ([id number]) [address], [address] [place] [address] Anion gap [Moles/Vol] 9 mmol/L Normal 5-15 [facility] Comment on above: Performed By: #### Neyda LAU, #### [facility] ([id number]) [address] [place] [address] AST [Catalytic activity/Vol] 40 U/L Normal 0-41 [facility] Comment on above: Performed By: #### Neyda LAU, #### [facility] ([id number]) [address], [address] [place] [address] Bilirubin [Mass/Vol] 0.3 mg/dL Normal 0.3-1.2 [facility] Comment on above: Performed By: #### Neyda LAU, #### [facility] ([id number]) [address], [address] [place] [address] Calcium [Mass/Vol] 9.7 mg/dL Normal 8.5-10.5 [facility] Comment on above: Performed By: #### Neyda LAU, #### [facility] ([id number]) [address] [place] [address] Chloride [Moles/Vol] 107 mmol/L Normal 98-109 [facility] Comment on above: Performed By: #### Neyda LAU, #### [facility] ([id number]) [address] [place] [address] CO2 [Moles/Vol] 26 mmol/L Normal 22-32 [facility] Comment on above: Performed By: #### Neyda LAU, #### [facility] ([id number]) [address] [place] [address] Creatinine [Mass/Vol] 1.18 mg/dL Normal 0.60-1.30 [facility] Comment on above: Result Comment: METH OD TRACEABLE TO IDMS STANDARD Performed By: #### C SID, #### [facility] ([id number]) [address] [place] [address] GFR/1.73 sq M.predicted among non-blacks MDRD (S/P/Bld) [Vol rate/Area] 75 mL/min/{1.73_m2} Normal >59 [facility] Comment on above: Result Comment: Reported eGFR is based on the CKD-EPI 2020 equation that does not use a race coefficient. Performed By: #### Neyda LAU, #### [facility] ([id number]) [address], [address] [place] [address] Glucose [Mass/Vol] 92 mg/dL Normal 65-99 [facility] Comment on above: Performed By: #### Neyda LAU, #### [facility] ([id number]) [address], [address] [place] [address] Potassium [Moles/Vol] 4.1 mmol/L Normal 3.5-5.0 [facility] Comment on above: Performed By: #### Neyda LAU, #### [facility] ([id number]) [address], [address] [place] [address] Protein [Mass/Vol] 6.8 g/dL Normal 6.0-8.0 [facility] Comment on above: Performed By: #### C SID, [id number] #### [facility] ([id number]) [address] [place] [address] Sodium [Moles/Vol] 142 mmol/L Normal 134-146 [facility] Comment on above: Performed By: #### C SID, [id number] #### [facility] ([id number]) [address] [place] [address] Urea nitrogen [Mass/Vol] 23 mg/dL Normal 5-23 [facility] Comment on above: Performed By: #### C SID, [id number] #### [facility] ([id number]) [address] [place] [address] Comprehensive metabolic pane clint 08-30-2023 Albumin [Mass/Vol] 4.1 g/dL 3.2 - 5.3 g/dL [facility] ALP [Catalytic activity/Vol] 32 U/L Low 39 - 130 U/L [facility] ALT No additional P-5'-P [Catalytic activity/Vol] 58 U/L High 0 - 40 U/L [facility] Anion gap [Moles/Vol] 9 mmol/L 5 - 15 mmol/L [facility] AST [Catalytic activity/Vol] 40 U/L 0 - 41 U/L [facility] Bilirubin [Mass/Vol] 0.3 mg/dL 0.3 - 1.2 mg/dL [facility] Calcium [Mass/Vol] 9.7 mg/dL 8.5 - 10. 5 mg/dL [facility] [facility] Chloride [Moles/Vol] 107 mmol/L 98 - 109 mmol/L [facility] CO2 [Moles/Vol] 26 mmol/L 22 - 32 mmol/L [facility] Creatinine [Mass/Vol] 1.18 mg/dL 0.60 - 1.30 mg/dL [facility] Comment on above: METHOD TRACEABLE TO IDUT STANDARD eGFR (CKD-EPI)non-race dependent 75 - PINF [facility] Comment on above: Reported eGFR is based on the CKD-EPI 2020 equation that does not use a race coefficient. Glucose [Mass/Vol] 92 mg/dL 65 - 99 mg/dL [facility] Potassium [Moles/Vol] 4.1 mmol/L 3.5 - 5.0 mmol/L [facility] Protein [Mass/Vol] 6.8 g/dL 6.0 - 8.0 g/dL [facility] Sodium [Moles/Vol] 142 mmol/L 134 - 146 mmol/L [facility] Urea nitrogen [Mass/Vol] 23 mg/dL 5 - 23 mg/dL [facility] MAGNESIUMon 08-30-2023 Magnesium [Mass/Vol] 1.7 mg/dL Low 1.8-2.6 [facility] Comment on above: Performed By: #### C , 64869-2 #### [facility] ([id number]) [address] [place] [address], [address] [place] [address] Magnesiumon 08-30-2023 Magnesium [Mass/Vol] 1.7 mg/dL Low 1.8 - 2.6 mg/dL [facility] No Panel Informationon 08-29 Interpretation and review of laboratory results Abnormal [facility] COVID Quick Testingon 2021 Result Negative [employer] Other COMPREHENSIVE METABOLIC PANE [facility] 06-02-2021 Albumin [Mass/Vol] 4.2 g/dL Normal 3.6-5.1 [facility] Comment on above: Performed By: #### 1 3761, 3370 #### [facility] [address], [address] [place] [id number] Fleet Driver: Curtis Doan MD Albumin/Globulin [Mass ratio] 1.6 {ratio} Normal 1.0-2.5 [facility] Comment on above: Performed By: #### 1 023, 4040 #### [facility] [address], [address] [place] [phone] Fleet Driver: Curtis Doan MD ALP [Catalytic activity/Vol] 44 U/L Normal 36-130 [facility] Comment on above: Performed By: #### 1 0231, 7600 #### [facility] of [place] [address] Fleet Driver: Curtis Doan MD ALT [Catalytic activity/Vol] 17 U/L Normal 9-46 [facility] Comment on above: Performed By: #### 1 0231, 7600 #### [facility] of [place] [address] Fleet Driver: Curtis Doan MD AST [Catalytic activity/Vol] 17 U/L Normal 10-40 [facility] Comment on above: Performed By: #### 1 0231, 7600 #### [facility] of [place] [address] Fleet Driver: Curtis Daon MD Bilirubin [Mass/Vol] 0.3 mg/dL Normal 0.2-1.2 [facility] Comment on above: Performed By: #### 1 0231, 7600 #### [facility] of [place] [address] Fleet Driver: Curtis Doan MD Calcium [Mass/Vol] 9.6 mg/dL Normal 8.6-10.3 [facility] Comment on above: Performed By: #### 1 0231, 7600 #### [facility] of [place] [address] Fleet Driver: Curtis Doan MD Chloride [Moles/Vol] 107 mmol/L Normal 98-110 [facility] Comment on above: Performed By: #### 1 0231, 7600 #### [facility] of [place] [address] Fleet Driver: Curtis Doan MD CO2 [Moles/Vol] 26 mmol/L Normal 20-32 [facility] Comment on above: Performed By: #### 1 0231, 7600 #### [facility] of [place] [address] Fleet Driver: Curtis Doan MD Creatinine [Mass/Vol] 0.89 mg/dL Normal 0.60-1.35 [facility] Comment on above: Performed By: #### 1 230, 7600 #### [facility] [place] [address] Fleet Driver: Curtis Doan MD eGFR NON-AFR. CHILEAN 101 mL/min/1.73m2 Normal > OR = 60 [facility] Comment on above: Performed By: #### 1 023, 7600 #### [facility] [address], [address] [place] [address] Fleet Driver: Curtis Doan MD GFR/1.73 sq M.predicted among blacks MDRD (S/P/Bld) [Vol rate/Area] 117 mL/min/{1.73_m2} Normal > OR = 60 [facility] Comment on above: Performed By: #### 1 230, 0 #### [facility] [place] [address] Fleet Driver: Curtis Doan MD Globulin (S) [Mass/Vol] 2.7 g/dL Normal 1.9-3.7 [facility] Comment on above: Performed By: #### 1 230, 7600 #### [facility] [place] [address] Fleet Driver: Curtis Doan MD Glucose [Mass/Vol] 103 mg/dL Normal 65-139 [facility] Comment on above: Result Comment: Non-fasting reference interval For someone without known diabetes, a glucose value between 100 and 125 mg/dL is consistent with prediabetes and should be confirmed with a follow-up test. Performed By: #### 1 023, 7600 #### [facility] [place] [address] Fleet Driver: Curtis Doan MD Potassium [Moles/Vol] 4.1 mmol/L Normal 3.5-5.3 [facility] Comment on above: Performed By: #### 1 023, 7600 #### [facility] [address] [place] [address] Fleet Driver: Curtis Doan MD Protein [Mass/Vol] 6.9 g/dL Normal 6.1-8.1 [facility] Comment on above: Performed By: #### 1 0231, 7600 #### [facility] of [address], [address] [place] [address] Fleet Driver: Curtis Doan MD Sodium [Moles/Vol] 140 mmol/L Normal 135-146 [facility] Comment on above: Performed By: #### 1 0231, 7600 #### [facility] of [address], [address] [place] [address] Fleet Driver: Curtis Doan MD Urea nitrogen [Mass/Vol] 27 mg/dL High 7-25 [facility] Comment on above: Performed By: #### 1 0231, 7600 #### [facility] of [address], [address] [place] [address] Fleet Driver: Curtis Doan MD Urea nitrogen/Creatinin e [Mass ratio] 30 mg/mg High 6-22 [facility] Comment on above: Performed By: #### 1 0231, 7600 #### [facility] of [place] [address] Fleet Driver: Curtis Doan MD LIPID PANEL, [facility] 12-2 Cholesterol [Mass/Vol] 123 mg/dL Normal <200 [facility] Comment on above: Order Comment: FASTI NG:NO FASTING: NO Performed By: #### 1 0231, 7600 #### [facility] of [address], [address] [place] [address] Fleet Driver: Curtis Doan MD Cholesterol in HDL [Mass/Vol] 29 mg/dL Low > OR = 40 [facility] Comment on above: Order Comment: FASTI NG:NO FASTING: NO Performed By: #### 1 0231, 7600 #### [facility] of [address], [address] [place] [address] Fleet Driver: Curtis Doan MD Cholesterol in LDL [Mass/Vol] [...] LDL-C. Noman SS et al. EARNESTINE. 2013;310(19): 1108-4313 (http://education.WeHealth/faq/WIM340) Performed By: #### 1 0231, 0 #### [facility] [address], [address] [place] [address] Fleet Driver: Curtis Doan MD Cholesterol.total/ Cholesterol in HDL [Mass ratio] 4.2 {ratio} Normal <5.0 [facility] Comment on above: Order Comment: FASTI NG:NO FASTING: NO Performed By: #### 1 023, 7600 #### [facility] [address], [address] [place] [address] Fleet Driver: Curtis Doan MD NON HDL CHOLESTEROL 94 mg/dL (calc) Normal <130 [facility] Comment on above: Order Comment: FASTI NG:NO FASTING: NO Result Comment: For patients with diabetes plus 1 major ASCVD risk factor, treating to a non-HDL-C goal of <100 mg/dL (LDL-C of <70 mg/dL) is considered a therapeutic option. Performed By: #### 1 0231, 7600 #### [facility] [address], [address] [place], [place] [id number] Fleet Driver: Curtis Doan MD Triglyceride [Mass/Vol] 397 mg/dL High <150 [facility] Comment on above: Order Comment: FASTI NG:NO FASTING: NO Result Comment: If a non-fasting specimen was collected, consider repeat triglyceride testing on a fasting specimen if clinically indicated. Alex et al. J. of Clin. Lipidol. 2015;9:129-169. Performed By: #### 1 0231, 7600 #### [facility] [address], [address] [place] [address] Fleet Driver: Curtis Doan MD CBC AUTO DIFFon 05-15-2021 BASO # 0.0 103/ul Normal 0.0-0.1 [facility] Comment on above: Performed By: #### C BC #### [facility] [address] [place] [address] [address] Diego Covarrubias Basophils/100 WBC (Bld) 0.5 % Normal 0.2-2.0 [facility] Comment on above: Performed By: #### C BC #### [facility] [address] [place] [address] [address] Diego Covarrubias EO # 0.1 103/ul Normal 0.0-0.7 [facility] Comment on above: Performed By: #### C BC #### [facility] [address] [place] [address] Dr. Diego Covarrubias Eosinophils/100 WBC (Bld) 1.5 % Normal 0.9-7.0 [facility] Comment on above: Performed By: #### C BC #### [facility] [address] [place] [address] Dr. Diego Covarrubias Erythrocyte distribution width (RBC) [Ratio] 12.6 % Normal 11.0-15.0 [facility] Comment on above: Performed By: #### C BC #### [facility] [address] [place] [address] Dr. Diego Covarrubias Hematocrit (Bld) [Volume fraction] 41.9 % Critically low 42.0-54.0 [facility] Comment on above: Performed By: #### C BC #### [facility] [address] [place] [address] [address] Diego Covarrubias Hemoglobin (Bld) [Mass/Vol] 14.2 g/dL Normal 14.0-18.0 [facility] Comment on above: Performed By: #### C BC #### [facility] [address] [place] [address] Dr. Diego Covarrubias IG # 0.03 10e3/ul Normal 0.00-0.03 [facility] Comment on above: Performed By: #### C BC #### [facility] [address] [place] [address] Dr. Diego Covarrubias IG % 0.5 % Normal 0.0-0.5 [facility] Comment on above: Performed By: #### C BC #### [facility] [address] [place] [address] Dr. Diego Covarrubias LYMPH # 2.0 103/ul Normal 1.2-3.8 [facility] Comment on above: Performed By: #### C BC #### [facility] [address] [place] [address] Dr. Diego Covarrubias Lymphocytes/100 WBC (Bld) 32.1 % Normal 20.5-60.0 [facility] Comment on above: Performed By: #### C BC #### [facility] [address] [place] [address] Dr. Diego Covarrubias MANUAL DIFF REQ NO Normal [facility] Comment on above: Performed By: #### C BC #### [facility] [address] [place] [address] Dr. Diego Covarrubias MCH (RBC) [Entitic mass] 31.5 pg Normal 25.9-34.0 [facility] Comment on above: Performed By: #### C BC #### [facility] [address] [place] [address] Dr. Diego Covarrubias MCHC (RBC) [Mass/Vol] 33.9 g/dL Normal 29.9-35.2 [facility] Comment on above: Performed By: #### C BC #### [facility] [address] [place] [address] Dr. Diego Covarrubias MCV (RBC) [Entitic vol] 92.9 fL Normal 80.0-94.0 [facility] Comment on above: Performed By: #### C BC #### [facility] [address] [place] [address] Dr. Diego Covarrubias MONO # 0.8 103/ul Normal 0.3-0.8 [facility] Comment on above: Performed By: #### C BC #### [facility] [address] [place] [address] [address] Diego Covarrubias Monocytes/100 WBC (Bld) 13.5 % Critically high 1.7-12.0 [facility] Comment on above: Performed By: #### C BC #### [facility] [address] [place] [address] [address] Diego Covarrubias NEUT # 3.2 103/ul Normal 1.4-6.5 [facility] Comment on above: Performed By: #### C BC #### [facility] [address] [place] [address] [address] Diego Covarrubias Neutrophils/100 WBC (Bld) 51.9 % Normal 43.0-75.0 [facility] Comment on above: Performed By: #### C BC #### [facility] [address] [place] [address] [address] Diego Covarrubias Platelet mean volume (Bld) [Entitic vol] 9.6 fL Normal 9.5-13.5 [facility] Comment on above: Performed By: #### C BC #### [facility] [address] [place] [address] [address] Diego Covarrubias PLT 244 103/ul Normal 150-450 [facility] Comment on above: Performed By: #### C BC #### [facility] [address] [place] [address] [address] Diego Covarrubias RBC 4.51 106/ul Critically low 4.70-6.10 [facility] Comment on above: Performed By: #### C BC #### [facility] [address] [place] [address] [address] Diego Covarrubias WBC 6.2 103/ul Normal 4.0-11.0 [facility] Comment on above: Performed By: #### C BC #### [facility] [address] [place] [address] SINUS WO CONTRASTon [...] correlation recommended.Electronica lly signed by: JORGITO FREITAS, DO [facility] Initial Visit (Otolaryngolog y)on 11-21-2017 Initial Visit (Otolaryngology) Chief ComplaintThis is a new patient that is here for possible deviated septum History of Present IllnessBanner Mony is here for a new patient consultation for his chronic sinus infections. He was referred by Dr. Garcia at [facility]. Pt reports repeat sinus infections. Jorgito states his last antibiotic was prescribed last thanksgiving. He describes his sinus infections with lots [...] BusPIRone HCl - 15 MG Oral Tablet;Therapy: [id number] to Recorded Dispense: 0 Days ; #: Sufficient Tablet; Refill: 0; ELENITA = N; Record; Last Updated By: Amisha Matias; 11/09/2017 1:27:18 PM Vitals Vital Signs Recorded: 09Nov2017 01:01YQXckixa8 ft 7 mkZauwhb072 lb BMI Nmidemgkww00.75BSA Calculated2.19 Physical ExamPhysical Examination:A detailed examination of [...] concerned about his sinuses. ProcedureNASAL ENDOSCOPY (CPT 73303):To better evaluate the patient's symptoms sinonasal endoscopy [...] CT Sinus without Contrast; Status:Active; Requested for:23Nov2017; Perform:[facility];Ordered; For:Chronic sinusitis; Ordered By:Christina Apodaca;Reason: Unspecified for CT Sinus without ContrastRadiologist to Determine Optimal Study : YRequesting physician's phone/pager number? : [phone] Alerts (ie: MRSA, TB, Diabetic) : diabeticWhat [...] MedsBusPIRone HCl - 15 MG Oral Tablet;Therapy: [id number] to Recorded Signatures Electronically signed by : Christina Apodaca MD; Nov 21 2017 7:37AM EST (Author) Normal [employer] Vital Signs Date Time Vital Sign Value Performing Clinician Facility 03-01-2024 15:10-0400 Blood Pressure Location Kiarra Galea [facility] 03-01-2024 15:10-0400 Body temperature 98.6 [degF] Kiarra Galea [facility] 03-01-2024 15:10-0400 Diastolic blood pressure 85 mm[Hg] Kiarra Galea [facility] 03-01-2024 15:10-0400 Heart rate 69 /min Kiarra Galea [facility] 03-01-2024 15:10-0400 Respiratory rate 17 /min Kiarra Galea [facility] 03-01-2024 15:10-0400 Systolic blood pressure 121 mm[Hg] Kiarra Galea [facility] 08-30-2023 15:51-0400 Body height 165.1 cm Josie Martin A P MANAGER-NETWORK TECHNICIAN Work Phone: [facility] 08-30-2023 15:51-0400 Body mass index (BMI) [Ratio] 40 kg/m2 Josie Martin A P MANAGER-NETWORK TECHNICIAN Work Phone: [facility] 08-30-2023 15:51-0400 Body temperature 98.1 [degF] Josie Martin A P MANAGER-NETWORK TECHNICIAN Work Phone: [facility] 08-30-2023 15:51-0400 Body weight 109.05 kg Josie Martin A P MANAGER-NETWORK TECHNICIAN Work Phone: [facility] 08-30-2023 15:51-0400 Diastolic blood pressure 70 mm[Hg] Josie Martin A P MANAGER-NETWORK TECHNICIAN Work Phone: [facility] 08-30-2023 15:51-0400 Heart rate 107 /min Josie CANOP Work Phone: [facility] [employer] 08-30-2023 15:51-0400 Respiratory rate 18 /min Josie HANDNETWORK TECHNICIAN Work Phone: [facility] [employer] 08-30-2023 15:51-0400 SaO2% (BldA) [Mass fraction] 98 % Josie CANOP Work Phone: [facility] [employer] 08-30-2023 15:51-0400 Systolic blood pressure 120 mm[Hg] Josie DALEY Work Phone: [facility] [employer] 08-04-2023 14:27-0500 Body height 165.1 cm Shahbaz Furlong DO Work Phone: [facility] [employer] 08-04-2023 14:27-0500 Body mass index (BMI) [Ratio] 40.25 kg/m2 Shahbaz Furlong DO Work Phone: [facility] [employer] 08-04-2023 14:27-0500 Body temperature 98.6 [degF] Shahbaz Furlong DO Work Phone: [facility] [employer] 08-04-2023 14:27-0500 Body weight 109.72 kg Shahbaz Furlong DO Work Phone: [facility] [employer] 08-04-2023 14:27-0500 Diastolic blood pressure 68 mm[Hg] Shah[facility]long [facility] [employer] 08-04-2023 14:27-0500 Heart rate 100 /min Shahbaz Furlong DO Work Phone: [facility] [employer] 08-04-2023 14:27-0500 SaO2% (BldA) [Mass fraction] 97 % Shahbaz Furlong DO Work Phone: [facility] [employer] 08-04-2023 14:27-0500 Systolic blood pressure 110 mm[Hg] Shahbaz Monk DO Work Phone: [employer] 06-21-2023 16:30-0500 Body height 165.1 cm Josie Martin APRN-NETWORK TECHNICIAN Work Phone: [facility] [employer] 06-21-2023 16:30-0500 Body mass index (BMI) [Ratio] 39.51 kg/m2 Josie Martin APRN-NETWORK TECHNICIAN Work Phone: [facility] [employer] 06-21-2023 16:30-0500 Body temperature 98.29 [degF] Josie Martin APRN-NETWORK TECHNICIAN [facility] 06-21-2023 16:30-0500 Body weight 107.68 kg Josie Martin APRN-NETWORK TECHNICIAN [facility] 06-21-2023 16:30-0500 Diastolic blood pressure 66 mm[Hg] Josie Martin APRN-NETWORK TECHNICIAN [facility]: [facility] [employer] 06-21-2023 16:30-0500 Heart rate 98 /min Josie Martin APRNElmaNETWORK TECHNICIAN [facility] 06-21-2023 16:30-0500 SaO2% (BldA) [Mass fraction] 95 % Josie Martin APRN-NETWORK TECHNICIAN Work Phone: [employer] 06-21-2023 16:30-0500 Systolic blood pressure 102 mm[Hg] Josie Martin APRN-NETWORK TECHNICIAN Work Phone: [employer] 06-16-2021 11:30-0500 Body height 167.64 cm Kendy Patino Other [employer] Other 06-16-2021 11:30-0500 Body mass index (BMI) [Ratio] 36.31 kg/m2 Kendy Patino Other [employer] Other 06-16-2021 11:30-0500 Body temperature 98.6 [degF] Kendy Patino Other [employer] Other 06-16-2021 11:30-0500 Body weight 102.06 kg Kendy Patino Other [employer] Other 06-16-2021 11:30-0500 Respiratory rate 20 /min Kendy Patino Other [employer] Other 06-16-2021 11:30-0500 SaO2% (BldA) [Mass fraction] 98 % Kendy Patino Other [employer] Other Encounters Encounter Date Encounter Type Care Provider Facility Start: 05-24-2024 ambulatory Kiarra J Galea Facility :[facility] Start: 03-01-2024 End: 03-01-2024 ambulatory Kiarra J Galea Facility:[facility] Start: 03-01-2024 End: 03-01-2024 Patient encounter procedure Kiarra J Sheldonea [facility] Start: 02-23-2024 End: 02-23-2024 ambulatory Kiarra J Galea Facility:[facility] [place] [place] Start: 02-23-2024 End: 02-23-2024 ambulatory Kiarra J Galea Facility:[facility] Start: 01-25-2024 ambulatory Kiarra Galea Facility:[facility] Start: 01-19-2024 End: 01-19-2024 ambulatory JORGE GIBBS [facility] Start: 01-02-2024 End: 01-02-2024 ambulatory SHAHBAZ MONK [facility] Start: 10-10-2023 End: 10-10-2023 ambulatory [facility] Start: 09-12-2023 Orders Only [facility] quintero DO [facility] Start: 08-31-2023 Orders Only Josie Martin A P MANAGER-NETWORK TECHNICIAN Work Phone: [facility] Comment on above: Hypomagnesemia (Prim yudy Dx) Start: 08-31-2023 End: 08-31-[address] [facility] Start: 08-30-2023 End: 08-30-2023 Office outpatient visit 25 minutes Josie Martin A P MANAGER-NETWORK TECHNICIAN Work Phone: [facility] Comment on above: Acute kidney injury (nontraumatic) ([facility]) (Primary Dx); Hypomagnesemia; Essential hypertension; Morbid obesity ([facility]) Start: 08-30-2023 End: 08-30-2023 ambulatory JOSIE MARTIN [facility] Start: 08-13-2023 Refill Shahbaz Alfonso ng DO Work Phone: [facility] Comment on above: Essential (primary) hypertension Start: 08-12-2023 Refill Shahbaz Arthurlo ng DO Work Phone: [facility] Comment on above: Urinary urgency Start: 08-04-2023 End: 08-04-2023 Office outpatient visit 25 minutes Shahbaz Monk DO Work Phone: [facility] Comment on above: Morbid obesity ([facility]) (Primary Dx); Lumbar disc prolapse with compression radiculopathy; Left lateral epicondylitis; Essential hypertension; Spondylolisthesis, lumbar region; Pre-diabetes Start: 08-04-2023 End: 08-04-2023 ambulatory SHAHBAZ G [facility] Start: 07-28-2023 Refill Shahbaz Arthurlo ng DO [facility] Comment on above: Urinary urgency Start: 07-04-2023 Telephone encounter Shahbaz menjivar DO Work Phone: [facility] Start: 06-21-2023 End: 06-21-2023 Office outpatient visit 15 minutes Josie Martin A P MANAGER-NETWORK TECHNICIAN [facility] Comment on above: Lateral epicondyliti s of left elbow (Primary Dx) Start: 06-21-2023 End: 06-21-2023 ambulatory JOSIE MARTIN [facility] Start: 12-03-2021 End: 12-04-[address] SHAHBAZ MONK Facility:[facility] Start: 06-16-2021 End: 06-16-2021 ambulatory Kendy Patino Other [employer] Other Start: 06-16-2021 Office outpatient vi sit 15 minutes Kendy Patino [facility] Start: 05-21-2021 Encounter for preprocedural cardiovascular examination DR DOCTOR NGUYEN [facility] Start: 05-21-2021 Encounter for preprocedural laboratory examination DR DOCTOR NGUYEN [facility] Start: 05-15-2021 End: 05-16-[address] DOCTOR NGUYEN Facility:[facility] Start: 05-15-2021 End: 05-16-2021 Encounter for preprocedural laboratory examination DR DOCTOR NGUYEN Facility:[facility] Start: 02-19-2021 End: 02-19-[address] SHAHBAZ MONK Facility:[facility] Start: 11-23-2017 Ambulatory Christina Apodaca Fac ility:[facility] Start: 11-09-2017 Ambulatory Christina Apodaca Fac ility:[id number] Procedures Date Procedure Procedure Detail Performing Clinician Start: 08-30-2023 Follow-up visit Follow-up JOSIE MARTIN Start: 08-30-2023 Adult depression screening assessment Josie Martin A P MANAGER-NETWORK TECHNICIAN Work Phone: Start: 08-04-2023 Adult depression screening assessment Shahbaz Monk DO Work Phone: Start: 06-21-2023 Adult depression screening assessment Josie Martin A P MANAGER-NETWORK TECHNICIAN Work Phone: Plan of Treatment Date Care Activity Detail Author Start: 02-11-2030 DTaP,Tdap and Td Vac cines (3 - Td or Tdap) DTaP,Tdap and Td Vaccines (3 - Td or Tdap) [facility] Start: 08-29-2024 Adult BMI Screening Adult BMI Screen ing [facility] Start: 08-29-2024 Depression Screening Depression Scre ening [facility] Start: 08-29-2024 Tobacco Screening Tobacco Screening [facility] Start: 08-28-2024 Screening for malign ant neoplasm of colon Colon Cancer Screening 3 Year Cologuard [facility] Start: 08-04-2024 Adult BMI Screening Adult BMI Screen ing [facility] Start: 08-04-2024 Depression Screening Depression Scre ening [facility] Start: 08-04-2024 Tobacco Screening Tobacco Screening [facility] Start: 06-21-2024 Adult BMI Screening Adult BMI Screen ing [facility] Start: 06-21-2024 Depression Screening Depression Scre ening [facility] Start: 06-21-2024 Tobacco Screening Tobacco Screening [facility] Start: 02-12-2024 Influenza vaccination Influenza Vacc ine [facility] Start: 11-03-2023 End: 11-03-2023 Patient encounter procedure 11/03/2023 4:10 PM EDT Office Visit [facility] [address] [place] [address] Shahbaz Monk, DO [address] [place] [address] [facility] Start: 10-10-2023 End: 10-10-2023 Patient encounter procedure 10/10/2023 4:00 PM EDT Office Visit [facility] [address] [place] [address] Josie Martin, A P MANAGER-NETWORK TECHNICIAN [address] [place] [address] [facility] Start: 09-11-2023 Influenza vaccination Influenza Vacc ine [facility] Comment on above: Postponed from 02/11 (Patient Refused) Start: 08-04-2023 End: 08-04-2023 Patient encounter procedure 08/04/2023 2:20 PM EST [facility] Medicine [address] [place] [address] Shahbaz Monk, DO [address] [place], [facility] [place] [address] [facility] Start: 2023 Administration of varicella zoster vaccine Zoster (Shingles) Vaccine (1 of 2) [facility] Start: 02-11-2023 Influenza vaccination Influenza Vacc ine [facility] Start: 1991 Adult BMI Follow Up Plan Adult BMI Follow Up Plan [facility] Immunizations Immunization Date Immunization Notes Care Provider Fa cility 02-12-2020 diphtheria, tetanus toxoids and pertussis vaccine Josie Martin A P MANAGER-NETWORK TECHNICIAN Work Phone: [facility] 02-12-2020 tetanus toxoid, redu jackson diphtheria toxoid, and acellular pertussis vaccine, adsorbed Josie Martin A P MANAGER-NETWORK TECHNICIAN Work Phone: [facility] 02-03-2018 hepatitis B vaccine, adult dosage Josie Martin A P MANAGER-NETWORK TECHNICIAN Work Phone: [facility] 09-07-2017 hepatitis B vaccine, adult dosage Josie Martin A P MANAGER-NETWORK TECHNICIAN Work Phone: [facility] 08-04-2017 hepatitis B vaccine, pediatric or pediatric/adolescent dosage Josie Martin A P MANAGER-NETWORK TECHNICIAN Work Phone: [facility] Payers Date Payer Category Payer Private Health Insurance [id number] 2023 Private Health Insurance [id number] 2023 Private Health Insurance [id number] 2012 Unknown [employer] ERNESTO [id number] 2012-Present [phone] [address] [place] [address] [id number] 1973 Unknown [id number] [id number]. 2.593 1973 Unknown [id number] 2.16.840.1.385389.3.579. 2.593 1973 Unknown [id number] 2.16.840.1.770336.3.579. 2.593 1973 Unknown [id number] 2.16.840.1.387038.3.579. 2.1286 1973 Unknown [id number] 2.16.840.1.610768.3.579. 2.1286 1973 Unknown [id number] 2.16.840.1.454266.3.579. 2.1286 1973 Unknown [id number] 2.16.840.1.900133.3.579. 2.1286 1973 Unknown [id number] 2.16.840.1.642364.3.579. 2.1286 1973 Unknown [id number] 2.16.840.1.823638.3.579. 2.1286 1973 Unknown [id number] 2.16.840.1.997074.3.579. 2.1286 1973 Unknown [id number] 2.16.840.1.871014.3.579. 2.727 1973 Unknown [id number] 2.16.840.1.346546.3.579. 2.727 1973 Unknown [id number] 2.16.840.1.704220.3.579. 2.727 1973 Unknown [id number] 2.16.840.1.881475.3.579. 2.727 1959 Unknown [id number] Social History Date Type Detail Facility Start: 03-07-2023 End: 05-03-2023 Sex Assigned At [facility] Start: 03-07-2023 Tobacco smoking stat [facility] Ex-smoker [facility] Start: 06-13-1989 End: 09-11-2022 History of tobacco use Current smoker [facility] Start: 06-13-1989 End: 09-11-2022 History of tobacco use Cigarette Smoker [facility] Start: 03-07-2023 End: 08-30-2023 Cigarettes smoked current (pack per day) - Reported 0.5 [facility] Start: 03-07-2023 Tobacco use and exposure Smokeless tobacco non-user [facility] Start: 06-21-2023 End: 08-04-2023 Alcohol intake Current drinker of alcohol (finding) [facility] Has the [employer], or [employer] threatened to shut off services in your home in past 12Mo No [facility] Are you now , , , , never or living with a partner? [facility] How often to you hav e a drink containing alcohol? 2-4 times a month [facility] How many standard drinks containing alcohol do you have on a typical day? 1 or 2 [facility] How often do you hav e 6 or more drinks on 1 occasion? Never [facility] How hard is it for y ou to pay for the very basics like food, housing, medical care, and heating Not hard at all [facility] Do you feel stress - tense, restless, nervous, or anxious, or unable to sleep at night because your mind is troubled all the time - these days [OSQ] Not at all [facility] Start: 03-02-2022 Alcohol Comment Occasional 6 p ack once a month [facility] Start: 1975 Sex Assigned At Not on file [facility] Start: 08-30-2023 Alcohol intake Ex-drinker (finding) [facility] Start: 03-01-2024 Tobacco smoking status Light t obacco smoker (finding) [facility] Functional Status Date Assessment Result Facility 03-01-2024 Functional Status N/A [facility] Clinical Notes 02-19-2021 to 03-01-2024 Shahbaz Monk, DO - 09/12/2023 11:04 AM EDTMyudy Martin, A P MANAGER-NETWORK TECHNICIAN - 08/30/2023 4:00 PM EDTTelephone Encounter - Kym Parks, [employer] - 08/13/2023 5:05 PM EST Note Date & Type Note Facility 03-01-2024 Hospital Discharge instructions Patient Education 03/01/2024 15:57:26 Hematuria, Adult Hematuria, Adult Hematuria is blood in the urine. Blood may be visible in the urine, or it may be identified with a test. This condition can be caused by infections of the bladder, urethra, kidney, or prostate. Other possible causes include: Kidney stones. Cancer of the urinary tract. Too much calcium in the urine. Conditions that are passed from parent to child (inherited conditions). Exercise that requires a lot of energy. Infections can usually be treated with medicine, and a kidney stone usually will pass through your urine. If neither of these is the cause of your hematuria, more tests may be needed to identify the cause of your symptoms. It is very important to tell your health care provider about any blood in your urine, even if it is painless or the blood stops without treatment. Blood in the urine, when it happens and then stops and then happens again, can be a symptom of a very serious condition, including cancer. There is no pain in the initial stages of many urinary cancers. Follow these instructions at home: Medicines Take ztan-qcr-fyhszrt and prescription medicines only as told by your health care provider. If you were prescribed an antibiotic medicine, take it as told by your health care provider. Do not stop taking the antibiotic even if you start to feel better. Eating and drinking Drink enough fluid to keep your urine pale yellow. It is recommended that you drink 3 4 quarts (2.8 3.8 L) a day. If you have been diagnosed with an infection, drinking cranberry juice in addition to large amounts of water is recommended. Avoid caffeine, tea, and carbonated beverages. These tend to irritate the bladder. Avoid alcohol because it may irritate the prostate (in males). General instructions If you have been diagnosed with a kidney stone, follow your health care provider's instructions about straining your urine to catch the stone. Empty your bladder often. Avoid holding urine for long periods of time. If you are female: ?After a bowel movement, wipe from front to back and use each piece of toilet paper only once. ?Empty your bladder before and after sex. Pay attention to any changes in your symptoms. Tell your health care provider about any changes or any new symptoms. It is up to you to get the results of any tests. Ask your health care provider, or the department that is doing the test, when your results will be ready. Keep all follow-up visits. This is important. Contact a health care provider if: You develop back pain. You have a fever or chills. You have nausea or vomiting. Your symptoms do not improve after 3 days. Your symptoms get worse. Get help right away if: You develop severe vomiting and are unable to take medicine without vomiting. You develop severe pain in your back or abdomen even though you are taking medicine. You pass a large amount of blood in your urine. You pass blood clots in your urine. You feel very weak or like you might faint. You faint. Summary Hematuria is blood in the urine. It has many possible causes. It is very important that you tell your health care provider about any blood in your urine, even if it is painless or the blood stops without treatment. Take lymj-epb-mohlisv and prescription medicines only as told by your health care provider. Drink enough fluid to keep your urine pale yellow. This information is not intended to replace advice given to you by your health care provider. Make sure you discuss any questions you have with your health care provider. Document Revised: 01/28/2021 Document Reviewed: 01/28/2021 [employer] Patient Education 2023 [employer] Follow Up Care 02/27/2024 10:53:51 With:Kiarra Christiansen, URL Address: When: Unknown Comments:Appointment has already been scheduled [facility] 03-01-2024 Note Patient Education Urology Hematuria, Adult Hematuria is blood in the urine. Blood may be visible in the urine, or it may be identified with a test. This condition can be caused by infections of the bladder, urethra, kidney, or prostate. Other possible causes include: ? Kidney stones. ? Cancer of the urinary tract. ? Too much calcium in the urine. ? Conditions that are passed from parent to child (inherited conditions). ? Exercise that requires a lot of energy. Infections can usually be treated with medicine, and a kidney stone usually will pass through your urine. If neither of these is the cause of your hematuria, more tests may be needed to identify the cause of your symptoms. It is very important to tell your health care provider about any blood in your urine, even if it is painless or the blood stops without treatment. Blood in the urine, when it happens and then stops and then happens again, can be a symptom of a very serious condition, including cancer. There is no pain in the initial stages of many urinary cancers. Follow these instructions at home: Medicines ? Take olaf-viy-ejmghhj and prescription medicines only as told by your health care provider. ? If you were prescribed an antibiotic medicine, take it as told by your health care provider. Do not stop taking the antibiotic even if you start to feel better. Eating and drinking ? Drink enough fluid to keep your urine pale yellow. It is recommended that you drink 3?4 quarts (2.8?3.8 L) a day. If you have been diagnosed with an infection, drinking cranberry juice in addition to large amounts of water is recommended. ? Avoid caffeine, tea, and carbonated beverages. These tend to irritate the bladder. ? Avoid alcohol because it may irritate the prostate (in males). General instructions ? If you have been diagnosed with a kidney stone, follow your health care provider's instructions about straining your urine to catch the stone. ? Empty your bladder often. Avoid holding urine for long periods of time. ? If you are female: ? After a bowel movement, wipe from front to back and use each piece of toilet paper only once. ? Empty your bladder before and after sex. ? Pay attention to any changes in your symptoms. Tell your health care provider about any changes or any new symptoms. ? It is up to you to get the results of any tests. Ask your health care provider, or the department that is doing the test, when your results will be ready. ? Keep all follow-up visits. This is important. Contact a health care provider if: ? You develop back pain. ? You have a fever or chills. ? You have nausea or vomiting. ? Your symptoms do not improve after 3 days. ? Your symptoms get worse. Get help right away if: ? You develop severe vomiting and are unable to take medicine without vomiting. ? You develop severe pain in your back or abdomen even though you are taking medicine. ? You pass a large amount of blood in your urine. ? You pass blood clots in your urine. ? You feel very weak or like you might faint. ? You faint. Summary ? Hematuria is blood in the urine. It has many possible causes. ? It is very important that you tell your health care provider about any blood in your urine, even if it is painless or the blood stops without treatment. ? Take fwox-hsp-ytxzzlw and prescription medicines only as told by your health care provider. ? Drink enough fluid to keep your urine pale yellow. This information is not intended to replace advice given to you by your health care provider. Make sure you discuss any questions you have with your health care provider. Document Revised: 01/28/2021 Document Reviewed: 01/28/2021 [employer] Patient Education ? 2023 [employer]. 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 was taking flomax, [...] Skin: No rashes or suspicious lesions Assessment/Plan LINE BUILDER referred by Jorge Gibbs NP for ureteral stone. 01/08/24 - BUN 27, Cre 1.95, GFR 44 (pt had hydro due to ureteral stone at this time), no repeat labs in [facility] 1. History of kidney stones (Z87.442: Personal history of urinary calculi) 01/08/[address] [facility] [address] w/o con - mild R hydronephrosis due to a 5mm proximal R ureteral stone near the UPJ. No additional upper or lower urinary tract calculi are seen on either side. There are no other acute findings in the abdomen or pelvis 02/16/24 KUB - no appreciable urinary tract calculi Pt went to [facility] ER on 01/08/24 due to pain. Pt [...] [place]. Discussed increasing fluids and adding lemon/ewiiaapaayp to patient's regimen, pt verbalizes understanding. Briefly discussed metabolic workup with patient should he develop another stone. -Increase fluids, avoid bladder irritants -Add lemon/ewiiaapaayp, lemonade to fluid intake -Call our office for any stone symptoms -F/U 1 year with KUB/KECIA Ordered: E&M of New Patient High 60-74 Min 09664 2. BPH with obstruction/lower urinary tract symptoms [...] Daily, # 30 cap(s), Refills(s) 11, Pharmacy: [id number], 168, cm, 02/23/24 10:12:00 EDT, Height/Length Dosing, 102, kg, 02/23/24 10:12:00 EDT, Weight Dosing E&M of New Patient High 60-74 Min 40752 3. Screening PSA (prostate specific antigen) (Z12.5: [...] E&M of New Patient High 60-74 Min 48067 PSA Total 4. Asymptomatic microscopic hematuria (R31.21: [...] Denies gross hematuria. (more content not included)... [facility] Comment on above: Result Comment: Elec tronically Signed By: Kiarra Christiansen\.jean\Date and Time Signed: 02/23/24 11:07 EDT 02-23-2024 [...] Follow these instructions at home: ? Take dvjy-cjr-akceivi and prescription medicines only as told by [...] develop side effec (more content not included)... [facility] 09-12-2023 History of Present illness Narrative Semaglutide 0.6 mg once a week sent in to [facility] documented in this encounter [employer] 08-30-2023 History of Present illness Narrative Subjective [...] for this visit: Acute kidney injury (nontraumatic) ([facility]) - Comprehensive metabolic panel; Future Hypomagnesemia - Magnesium; Future Essential hypertension Morbid obesity ([facility]) He looks good today [...] Berg 08/30/23 1710 documented in this encounter [employer] 08-13-2023 Miscellaneous Notes I called pt and he is taking it.He has a 90 supply everything good he is receiving it through [facility] documented in this encounter [employer] 08-13-2023 Telephone encounter Note I called pt and he is taking it.He has a 90 supply everything good he is receiving it through [facility] [employer] 08-04-2023 History of Present illness Narrative Subjective [...] would like a refill. 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 Please advise. It was not going to be covered so I changed it to something else per patient's request. [facility] encounter [facility] 07-04-2023 Telephone encounter Note Soraya called requesting an Edarbi med refill however I dont see it as a listed med. [facility] advise. [facility] 07-04-2023 Telephone encounter Note It was not going to be covered so I changed it to something else per patient's request. [facility] 06-21-2023 History of Present illness Narrative Subjective [...] EDI Amaya 06/21/231723 documented in this encounter [facility] [employer] 12-04-2021 Note PROCEDURE: XR HEEL R T [...] authenticated by: SALINA AGUILERA Date: 2021-12-04 09:07 [facility] 06-16-2021 Evaluation note Encounter Date Diagnosis Assessment [...] Patient care instructions given in writting by [facility] document. [employer] Other 09-09-2021 NotePROCEDURE: XR KNEE RT 4V [...] Electronically authenticated by: SALINA AGUILERA Date: 2021-02-19 14:03[facility] Future Appointments Appointment Date:05/24/2024 09:00:00 AM Scheduled Provider:Kiarra Christiansen Location:[facility] Appointment Type:URO Office Visit Diagnostic Tests Pending * Creatinine 03/01/24 [facility] evaluation note* Diagnosis Lateral epicondylitis of left elbow- Primary [facility] Urinary urgency Urgency of urination documented [facility] Diagnosis Morbid obesity ([facility] Primary Morbid obesity Lumbar disc prolapse with compression radiculopathy Displacement of lumbar intervertebral disc without myelopathy Left lateral epicondylitis Essential hypertension Unspecified essential hypertension Spondylolisthesis, lumbar region Pre-diabetes Other abnormal glucose [facility] Diagnosis Urinary urgency Urgency of urination [facility]* Diagnosis Essential (primary) hypertension Unspecified essential hypertension [facility]* Diagnosis Acute kidney injury (nontraumatic) ([facility] Primary Acute kidney failure, unspecified Hypomagnesemia Disorders of magnesium metabolism Essential hypertension Unspecified essential hypertension Morbid obesity ([facility]) Morbid obesity [facility]* Diagnosis Hypomagnesemia- Primary Disorders of magnesium metabolism [facility] N[facility]ative - Reported* Type Description Date Medical History GERD Medical History arthritis Medical History NIDDM Medical History HTN Medical History hyperlipidemia Medical History sleep apnea Medical History depression Medical History deviated nasal septum Medical History chronic sinusitis Medical History COPD Surgical History Injection Tendon Origin/Inserti on Surgical History LASIK Surgical History total hip replacement, left Hospitalization History surgeries [employer] Other Hospital course Narrative No data available for this section [facility] InstructionsNot on filedocumented in this encounter [facility] filed[facility] in [facility] on filedocumented in this encounter [facility] filedocumented in this encounter [facility] on filedocumented in this encounter [facility] on filedocumented in this encounter [facility] No data available for this section [facility] Summary Purpose Family History No Family History Records FoundNo Family History Records FoundNo Family History Records FoundNo Family History Records FoundNo Family History Records FoundNo Family History Records FoundNo Family History Records FoundNo Family History Records FoundNo Family History Records Found No data available for this section No Family History Records Found Advance Directives No [...] DATE CREATED AUTHOR AUTHOR'S ORGANIZ ATION 12/02/2017 [facility] DATE CREATED AUTHOR AUTHOR'S ORGANIZ ATION 06/02/2021 [facility] DATE CREATED AUTHOR AUTHOR'S ORGANIZ ATION 12/09/[address] [facility] DATE CREATED AUTHOR AUTHOR'S ORGANIZ ATION [facility]/01[facility]2023 [facility] DATE CREATED AUTHOR AUTHOR'S ORGANIZ ATION 01/22/2024 [facility] DATE CREATED AUTHOR AUTHOR'S ORGANIZ ATION 02/25/2024 [facility] DATE CREATED AUTHOR AUTHOR'S ORGANIZ ATION 02/26/2024 [facility] DATE CREATED AUTHOR AUTHOR'S ORGANIZ ATION 02/27/2024 [facility] DATE CREATED AUTHOR AUTHOR'S ORGANIZ ATION 03/04/2024 [facility] REASON FOR VISIT (unrecogniz ed section and content) Reason Comments elbow, arm wrist pain w/ lump on wrist Reason Comments Med Refill Reason Comments Weight Loss Reason Comments Follow-up From ER visit 3 days at [facility] Care Teams (unrecognized sec tion and content) Cardiopulmonary Specialist Relationship Specialty Start Date End Date Shahbaz Monk DO [address], [place] [address] PCP - General Family Medicine 02/11/22 Cardiopulmonary Specialist Relationship Specialty Start Date End Date Shahbaz Monk DO [address], [place] [address] PCP - [facility] 02/11/22 Cardiopulmonary Specialist Relationship Specialty Start Date End Date Shahbaz Monk DO [address], [place] [address] [facility] 02/11/22 Cardiopulmonary Specialist Relationship Specialty Start Date End Date Shahbaz Monk DO [address], [place] [address] [facility] 02/11/22 Cardiopulmonary Specialist Relationship Specialty Start Date End Date Shahbaz Monk DO [address], [place] [address] [facility] 02/11/22 Cardiopulmonary Specialist Relationship Specialty Start Date End Date Shahbaz Monk DO [address] [place] [address] [facility] 02/11/22 FOR RECORDS PERTAINING TO PATIENTS WHO [...] BE BASED ON THE PRIMARY CLINICAL RECORDS. [employer] [facility]. provides no warranty or guarantee of the accuracy or completeness of information in this document.
[2024-03-06 07:28] LABS: Estimated GFR (African America >60 (>=60); Estimated GFR (Non-African Ame >60 (>=60)
--- NOTE | 2024-03-06 08:44 | XR_ITS ---
The [address] [address] Patient Name: STEFFANY JOVEL MRN: [id number] date: 1975 Sex: M Assigned Patient Location: LAB Current Patient Location: LAB Accession/Order Number: [id number] Exam Date: 03/06/2024 08:10 Report Date: 03/06/2024 09:02 At the request of: COLTON FAIR Procedure: XR IVP w KUB EXAMINATION: XR IVP w KUB HISTORY: HEMATURIA COMPARISON: XR abdomen 02/16/2024, CT abdomen pelvis 01/08/2024 TECHNIQUE: After obtaining patient consent a police worker image was obtained followed by injection of 100cc of Omnipaque 300 IV contrast. Immediate nephrographic images were obtained. Corticomedullary and urographic phase images were obtained at 5, 10, 15 and 20 minutes. 15 minute oblique images were also obtained. FINDINGS: KIDNEY/URETER - RIGHT: No visible calcifications. KIDNEY/URETER - LEFT: No visible calcifications. PELVIS: No visible ureteral calcifications. Any visible calcifications favor phleboliths. NEPHROGRAPHIC PHASE: Normal, symmetric size, contour, and orientation. Normal and symmetric time of contrast uptake. CORTICOMEDULLARY: No mass or abnormal appearing medulla, pyramids, or collecting system. UROGRAPHIC PHASE: Normal caliber, course, and number of ureters. BLADDER: Normal size and contour. Complete emptying with voiding. BOWEL: No abnormal dilation or deviation. BONES: Left hip replacement. OTHER: Negative. No abnormal gaseous collections. XR/XR IVP w KUB IMPRESSION: 1. Normal IVP. No residual stone within right ureter. Electronically authenticated by: SALINA AGUILERA Date: 03/06/2024 09:02
== END 2024-03-06 07:05 | disposition home or self-care (01) ==
PROVIDERS: PCP Family Medicine; Visit Provider Nurse Practitioner
DX: R31.0 Gross hematuria (principal)
CPT/HCPCS: 36415; 74400; 82565; Q9967

== ENCOUNTER 2024-08-20 13:36 | Outpatient (OUT) | payer OTHER, SELFPAY ==
--- NOTE | 2024-08-20 15:25 | PM.CN ---
Consult Note: HPI Data of Consult Patient: new to practice Consult date: 08/20/24 Requesting Physician: Chrissy Conway MD Primary Care Provider: OSMAR MANCINI Consult Narrative Reason for consult: low back, bilateral lower extremity pain Narrative: 49yom who presents for evaluation. longstanding low back, bilateral lower extremity pain. no recent advanced imaging available for review. previously underwent injection therapies. uses pain meds as needed, with limited benefit. has engaged in >6 weeks of provider directed home exericses, without benefit. denies adverse med side effects. cc:: CC: Chrissy Conway MD Review of Systems ROS Status of ROS 10 or more systems reviewed and unremarkable except as noted in history and below PFSH [facility] Medical History GERD (gastroesophageal reflux disease) ?K21.9 - Gastro-esophageal reflux disease without esophagitis (ICD-10) OAB (overactive bladder) ?N32.81 - Overactive bladder (ICD-10) Hyperlipidemia ?E78.5 - Hyperlipidemia, unspecified (ICD-10) Prediabetes ?R73.03 - Prediabetes (ICD-10) HTN (hypertension) ?I10 - Essential (primary) hypertension (ICD-10) Cholelithiasis ?K80.20 - Calculus of gallbladder without cholecystitis without obstruction (ICD-10) Degenerative disc disease, lumbar ?M51.36 - Other intervertebral disc degeneration, lumbar region (ICD-10) Surgical History History of hip replacement ?Z96.649 - Presence of unspecified artificial hip joint (ICD-10) Family History Father Family history of CHF (congestive heart failure) Family history of COPD (chronic obstructive pulmonary disease) Family history of hypertension Family history of stroke Grandfather Family history of cancer Family history of hypertension Grandfather Family history of cancer Brother Family history of diabetes mellitus Family history of hypertension Social History Within the past year, how often did you have a drink containing alcohol: 2-4 times a month Within the past year, how many standard drinks containing alcohol did you have on a typical day: 1 or 2 Within the past year, how often did you have six or more drinks on one occasion: never Total score: 0 Score interpretation: A score less than 4 is consistent with normal alcohol consumption. Smoking status: Current every day smoker Do you use any of these nicotine containing products: vaping products Non-prescribed substance use: denies use Previous occupational history: [employer] Highest level of school completed/degree received: Associate degree: occupational, technical, vocational program Little interest or pleasure in doing things: not at all Feeling down, depressed, or hopeless: not at all Feel stressed/tense/nervous/anxious/difficulty sleeping: not at all Meds Home Medications and Allergies Home Medications ?Medication ?Instructions ?Recorded ?Confirmed ?Type atorvastatin 20 mg tablet 20 mg PO DAILY 08/22/23 08/22/23 History celecoxib 200 mg capsule 200 mg PO BID 08/22/23 08/22/23 History fenofibrate 160 mg tablet 160 mg PO DAILY 08/22/23 08/22/23 History metoprolol succinate 50 mg 50 mg PO DAILY 08/22/23 08/22/23 History tablet,extended release 24 hr omeprazole 20 mg capsule,delayed 20 mg PO DAILY 08/22/23 08/22/23 History release oxybutynin chloride 5 mg tablet 5 mg PO DAILY 08/22/23 08/22/23 History hydrocodone 5 mg-acetaminophen 325 1 tab PO Q6H PRN pain 08/20/24 08/20/24 History mg tablet magnesium oxide 400 mg (241.3 mg 400 mg PO DAILY 08/20/24 08/20/24 History magnesium) tablet semaglutide 2 mg/dose (8 mg/3 mL) 2 mg subcut QWEEK 08/20/24 08/20/24 History subcutaneous pen injector tamsulosin 0.4 mg capsule 0.4 mg PO Q24H 08/20/24 08/20/24 History tizanidine 4 mg tablet 4 mg PO Q12H PRN muscle spasticity 08/20/24 08/20/24 History Allergies Allergy/AdvReac Type Severity Reaction Status Date / Time No Known Drug Allergies Allergy Verified 02/27/24 08:53 Exam Narrative Exam Narrative: Psych-alert and oriented x 3. Attentive and appropriate, constitutionally normal, displays normal mood and affect per situation. There are no obvious deficits in memory, reasoning, or intellect.? Skin-no obvious rashes, bruising, erythema noted to the patient's area of pain.? Extremities- extremities are warm with minimal edema and palpable pulses. Lumbar-tenderness to palpation noted in the lumbar spine and paraspinal musculature. Pain is elicited with flexion, extension, and lateral rotation of the lumbar spine. Range of motion is diminished with these motions. Facet loading maneuvers are positive. Strength-noted to be unremarkable with the exception of decreased strength rated at 4 out of 5 in bilateral quadriceps femoris, anterior tibialis. Sensory-no notable sensory deficits in the bilateral lower extremities to touch or pinprick in all dermatomal distributions with the exception to decreased sensation to the bilateral L4, 5 dermatomal distribution Coordination remains intact.? Gait remains non-antalgic. Assessment and Plan Assessment and Plan (1) Lumbar stenosis with neurogenic claudication: Plan 49yom who presents for evaluation. failed conservative measures, as noted. given symptoms and exam findings, prudent to update lumbar mri without contrast. he is in agreement. meds reviewed, no changes. follow up after imaging.
== END 2024-08-20 13:37 | disposition home or self-care (01) ==
LOC: PM 13:36
PROVIDERS: PCP Family Medicine; Visit Provider Anesthesiology
DX: M48.062 Spinal stenosis, lumbar region with neurogenic claudication (principal)
CPT/HCPCS: G0463

== ENCOUNTER 2024-08-29 06:41 | Outpatient (OUT) | payer OTHER, SELFPAY ==
--- OUTSIDE RECORDS SUMMARY | 2024-08-29 06:45 | XMS_ITS | CCD ---
Author Organization [facility] Care Team Providers Care Materials And Processes Manager Name Role Phone Christina Apodaca Unavailable Unavailable Yandel Garcia Unavailable Unavailab estefani Garcia, Yandel Martino Unavailable Unavailab Christina Smith Unavailable Unavailable Yandel Garcia Unavailable Unavailab Kendy Vázquez Unavailable LIVE, DR SHAHBAZ Auguste Primary Care Unavailable REINECK, DR MONIK Auguste Admitting Unavailabl e REINECK, DR MONIK Auguste Attending Unavailabl e ZIEBER, DR SALINA Lopez Consulting Unavailable ADARSH CRUZ Consulting Unavailable FURLOLEON, DR SHAHBAZ Auguste Admitting Unavailable FURLONG, DR [...] Consulting Unavailable MISC, DR CLAYTON Consulting Unavailable Kiarra Min Admitting Unavailable Kiarra Min Attending Unavailable SHAHBAZ MANCINI Primary Care Physician [phone] Kiarra Min Attending Unavailable Kiarra Min Admitting Unavailable Kiarra Min Attending Unavailable JOSIE GRANDE Referring Unavailable SHAHBAZ MANCINI Primary Care Unavailable SHAHBAZ MANCINI Referring Unavailable SHAHBAZ MANCINI Primary Care Unavailable SHAHBAZ MANCINI Referring Unavailable SHAHBAZ MANCINI Primary Care Unavailable Furlong Shahbaz PERKINS Primary Care Provider JOSIE GRANDE Attending Unavailable SHAHBAZ MANCINI Referring Unavailable SHAHBAZ MANCINI Primary Care Unavailable JOSIE GRANDE Attending Unavailable FURLONG, SHAHBAZ G Referring Unavailable FURLONG, SHAHBAZ G Primary Care Unavailable FURLONG, SHAHBAZ G Attending Unavailable FURLONG, SHAHBAZ G Referring Unavailable FURLONG, SHAHBAZ G Primary Care Unavailable JORGE GIBBS Attending Unavailable FURLONG, SHAHBAZ G Referring Unavailable FURLONG, SHAHBAZ G Primary Care Unavailable FURLONG, SHAHBAZ G Attending Unavailable FURLONG, SHAHBAZ G Referring Unavailable FURLONG, SHAHBAZ G Primary Care Unavailable FURLONG, SHAHBAZ G Attending Unavailable FURLONG, SHAHBAZ G Referring Unavailable FURLONG, SHAHBAZ G Primary Care Unavailable FURLONG, SHAHBAZ G Attending Unavailable FURLONG, SHAHBAZ G Referring Unavailable FURLONG, SHAHBAZ G Primary Care Unavailable FURLONG, SHAHBAZ G Attending Unavailable FURLONG, SHAHBAZ G Referring Unavailable FURLONG, SHAHBAZ G Primary Care Unavailable Galea, Kiarra Gant Attending Unavailable Galea, Kiarra Gant Attending Unavailable JORGE GIBBS Referring Unavailable Galea, Kiarra Gant Attending Unavailable GaleaKiarra Admitting Unavailable Galea, Kiarra Gant Attending Unavailable Galea, Kiarra Gant Admitting Unavailable Galea, Kiarra Gant Attending Unavailable Zoraida CHAVIRA, Chrissy Dela Cruz Attending Unavailable Medications Current Medications Medication Drug Class(es) Dates Sig (Normalized) Sig (Original) acetaminophen 325 mg / HYDROcodone bitartrate 5 mg oral tablet (10 sources) Opioid Agonist Start: 02-17-2024 End: 02-22-2024 take 1 tablet by mouth every six hours as needed HYDROcodone-aceta minophen (NORCO) 5-325 mg per tablet Take 1 tablet by mouth every 6 (six) hours as needed. Max Daily Amount: 4 tablets 02/23/2024 Active Start: 01-02-2024 End: 01-07-2024 HYDROcodone-acetaminophen (N ORCO) 5-325 mg per tablet Indications: Lumbar disc prolapse with compression radiculopathy Take 1 tablet by mouth every 6 (six) hours as needed for pain for up to 5 days. Max Daily Amount: 4 tablets 20 tablet 01/02/2024 01/07/2024 Active Start: 08-04-2023 End: 08-11-2023 HYDROcodone-acetaminophen (N ORCO) 5-325 mg per tablet Indications: Spondylolisthesis, lumbar region Take 1 tablet by mouth every 8 (eight) hours as needed for pain for up to 7 days. Max Daily Amount: 3 tablets 20 tablet 0 08/04/2023 08/11/2023 Active atorvastatin 20 mg oral tablet (20 sources) HMG-CoA Reductase Inhibitor Start: 05-03-2023 End: 04-29-2024 take 1 tablet by mouth once daily in the morning atorvastatin (LIPITOR) 20 mg tablet TAKE 1 TABLET BY MOUTH EVERY MORNING 90 tablet 1 04/29/2024 Active azilsartan medoxomil 40 mg oral tablet (15 sources) Angiotensin 2 Receptor Luiza Start: 07-11-2023 End: 01-02-2024 take 1 tablet by mouth once daily azilsartan medoxomiL (EDARBI) 40 mg tablet Indications: hypertension Indications: high blood pressure. TAKE 1 TABLET BY MOUTH DAILY 0 08/15/2023 Active celecoxib 200 mg oral capsule (20 sources) Nonsteroidal Anti-inflammatory Drug Start: 05-28-2024 End: 08-08-2024 take 1 capsule by mouth twice daily at bedtime celecoxib (CeleBREX) 200 mg capsule Indications: Spondylolisthesis, lumbar region TAKE 1 CAPSULE BY MOUTH TWICE DAILY (IN THE MORNING and AT BEDTIME) 180 capsule 1 08/08/2024 Active Start: 08-04-2023 End: 02-09-2024 take 1 capsule by mouth twice daily at bedtime celecoxib (CeleBREX) 200 mg capsule Indications: Spondylolisthesis, lumbar region TAKE 1 CAPSULE BY MOUTH TWICE DAILY IN THE MORNING and AT BEDTIME 180 capsule 1 02/09/2024 Active Start: 05-03-2023 End: 08-04-2023 take 1 capsule by mouth once daily celecoxib (CeleBREX) 200 mg capsule Indications: Spondylolisthesis, lumbar region TAKE 1 CAPSULE BY MOUTH EVERY DAY 90 capsule 1 05/03/2023 08/04/2023 Discontinued fenofibrate 160 mg oral tablet (20 sources) Peroxisome Proliferator Receptor alpha Agonist Start: 02-02-2023 End: 08-08-2024 take 1 tablet by mouth once daily in the morning fenofibrate (LOFIBRA) 160 mg tablet TAKE 1 TABLET BY MOUTH ONCE DAILY IN THE MORNING 90 tablet 1 08/08/2024 Active take 1 tablet by zoila every twenty-four hours Fenofibrate 160 MG 1 tablet Orally daily Active magnesium oxide 400 mg oral tablet (20 sources) Start: 08-27-2024 take 1 tablet by mouth in the morning magnesium oxide (MAGOX) 400 mg tablet Take 1 tablet (400 mg total) by mouth in the morning. 100 tablet 1 08/27/2024 Active Start: 08-31-2023 End: 08-27-2024 take 1 tablet by mouth in the morning magnesium oxide (MAGOX) 400 mg tablet Take 1 tablet (400 mg total) by mouth in the morning. 100 tablet 3 08/31/2023 08/27/2024 Discontinued (Reorder) 24 hr metoprolol succinate 50 mg extended release oral tablet (20 sources) beta-Adrenergic Luiza Start: 08-12-2023 End: 08-08-2024 take 1 tablet by mouth once daily in the morning metoprolol succinate XL (TOPROL XL) 50 mg 24 hr tablet TAKE 1 TABLET BY MOUTH ONCE DAILY EVERY MORNING 90 tablet 1 08/08/2024 Active Start: 05-03-2023 End: 08-12-2023 take 1 [...] omeprazole 20 mg delayed release oral capsule (20 sources) Proton Pump Inhibitor Start: 02-23-2024 take 1 capsule by mouth once daily omeprazole 20 mg Cap-DR 20 mg = 1 cap(s), Oral, Daily, Refills(s) 0 Start Date: 02/23/24 Status: Ordered oxybutynin chloride 5 mg oral tablet (20 sources) 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 Start: 03-01-2024 take 1 tablet by mouth once daily oxybutynin 5 mg ER Tab 5 mg = 1 tab(s), Oral, Daily, # 90 tab(s), Refills(s) 3, Pharmacy: [id number], 168, cm, 03/01/24 15:29:00 EDT, Height/Length Dosing, 102, kg, 03/01/24 15:29:00 EDT, Weight Dosing Start Date: 03/01/24 Status: Ordered Start: 05-03-2023 End: 04-29-2024 take 1 tablet by mouth in the morning oxybutynin (DITROPAN) 5 mg tablet Indications: Urinary urgency TAKE 1 TABLET BY MOUTH IN THE MORNING 90 tablet 1 04/29/2024 Active SEMAGLUTIDE, WEIGHT LOSS, SUBQ (15 sources) inject 1.8 mg by subcutaneous injection every week SEMAGLUTIDE, WEIGHT LOSS, SUBQ Inject 1.8 mg under the skin once a week. Active inject 1.2 mg by sub cutaneous injection every week SEMAGLUTIDE, WEIGHT LOSS, SUBQ Inject 1. 2 mg under the skin once a week. Active tamsulosin hydrochloride 0.4 mg oral capsule (10 sources) alpha-Adrenergic Luiza Start: 05-28-2024 take 1 capsule by mouth once daily tamsulosin (FLOMAX) 0.4 mg capsule Take 1 capsule (0.4 mg total) by mouth nightly. Has questions 05/28/2024 Active Start: 05-24-2024 take 1 capsule by [facility] once daily Flomax 0.4 mg Cap 0.4 mg = 1 cap(s), Oral, Daily, # 30 cap(s), Refills(s) 11, Pharmacy: [id number], 168, cm, 05/24/24 9:22:00 EST, Height/Length Dosing, 102.6, kg, 05/24/24 9:22:00 EST, Weight Dosing Start Date: 05/24/24 Status: Ordered Start: 02-23-2024 take 1 capsule by [facility] once daily Flomax 0.4 mg Cap 0.4 mg = 1 cap(s), Oral, Daily, # 30 cap(s), Refills(s) 11, Pharmacy: [id number], 168, cm, 02/23/24 10:12:00 EDT, Height/Length Dosing, 102, kg, 02/23/24 10:12:00 EDT, Weight Dosing Start Date: 02/23/24 Status: Ordered tiZANidine 4 mg oral tablet (7 sources) Central alpha-2 Adrenergic Agonist Start: 04-03-2024 take 1 tablet by mouth every six hours as needed tiZANidine (ZANAFLEX) 4 mg tablet Take 1 tablet (4 mg total) by mouth every 6 (six) hours as needed for muscle spasms. 120 tablet 1 04/03/2024 Active Completed/Discontinued Medications Medication Drug Class(es) Dates Sig (Normalized) Sig (Original) acetaminophen 325 mg / oxyCODONE hydrochloride 5 mg oral tablet (2 sources) Opioid Agonist Start: 05-28-2024 End: 07-27-2024 oxyCODONE-acetamino phen (PERCOCET) 5-325 mg per tablet Indications: Spondylolisthesis, lumbar region Take 1 tablet by mouth every 8 (eight) hours as needed for pain. Max Daily Amount: 3 tablets 20 tablet 05/28/2024 07/27/2024 Discontinued (Therapy completed) cyclobenzaprine hydrochloride 10 mg oral tablet (20 sources) Muscle Relaxant Start: 03-07-2023 End: 04-03-2024 take 1 tablet by mouth three times daily as needed for muscle spasms cyclobenzaprine (FLEXERIL) 10 mg tablet Indications: Lumbar disc prolapse with compression radiculopathy Take 1 tablet (10 mg total) by mouth 3 (three) times a day as needed for muscle spasms. 30 tablet 2 03/07/2023 04/03/2024 Discontinued (Ineffective) phentermine hydrochloride 37.5 mg oral capsule (1 [...] capsule 0 05/03/2023 06/21/2023 Discontinued (Therapy completed) polyethylene glycol 3350 53510 mg powder for oral solution (9 sources) Osmotic Laxative Start: 10-10-2023 End: 04-03-2024 polyethylene glycol (GLYCOLAX) 17 gram/dose powder Indications: Abdominal bloating Take 17 g by mouth in the morning. 510 g 1 10/10/2023 04/03/2024 Discontinued (Therapy completed) predniSONE 20 mg oral tablet (5 sources) Start: 06-21-2023 End: 08-04-2023 predniSONE (DELTASONE) 20 mg tablet Indications: Lateral epicondylitis of left elbow Take twice daily for 7 days then once daily for 7 days 21 tablet 0 06/21/2023 08/04/2023 Discontinued (Therapy completed) simethicone 80 mg chewable tablet (9 sources) Start: 10-10-2023 End: 04-03-2024 simethicone (MYLICON) 80 mg chewable tablet Indications: Abdominal bloating Chew 1 tablet (80 mg total) and swallow 4 (four) times a day as needed for flatulence. 100 tablet 2 10/10/2023 04/03/2024 Discontinued (Therapy completed) traMADol hydrochloride 50 mg oral tablet (20 sources) Opioid Agonist Start: 06-22-2022 End: 04-03-2024 take 1 tablet by mouth four times daily as needed for pain traMADoL (ULTRAM) 50 mg tablet Indications: Degeneration of lumbar intervertebral disc Take 1 tablet (50 mg total) by mouth 4 (four) times a day as needed for pain. 28 tablet 06/22/2022 04/03/2024 Discontinued (Therapy completed) valsartan 160 mg oral tablet (3 sources) Angiotensin 2 Receptor Luiza Start: 05-19-2023 End: 07-11-2023 take 1 tablet by mouth in the morning valsartan (DIOVAN) 160 mg tablet Take 1 tablet (160 mg total) by mouth in the morning. 90 tablet 1 05/19/2023 07/11/2023 Discontinued (Formulary change) Problems Active Problems Problem Classification Problem Date Documented Date Episodic/Chronic Disorders of lipid metabolism (20 sources) Hypercholesterolemia; Translations: [Pure hypercholesterolemia, unspecified] Onset: 06-29-2018 03-02-2022 Chronic Esophageal disorders (20 sources) Gastroesophageal reflux disease; Translations: [Gastro-esophageal reflux disease without esophagitis] Onset: 06-29-2018 03-02-2022 Chronic Essential hypertension (20 sources) Essential hypertension; Translations: [Essential (primary) hypertension] Onset: 06-29-2018 03-02-2022 Chronic Genitourinary symptoms and ill-defined conditions (11 sources) Microscopic hematuria; Translations: [Asymptomatic microscopic hematuria] Onset: 02-23-2024 Episodic Hyperplasia of prostate (5 sources) Benign prostatic hypertrophy with outflow obstruction; Translations: [Benign prostatic hyperplasia with lower urinary tract symptoms] Onset: 02-23-2024 Chronic Osteoarthritis (20 sources) Osteoarthritis; Translations: [Unspecified osteoarthritis, unspecified site] Onset: 03-02-2022 03-02-2022 Chronic Other acquired deformities (3 sources) Lumbar spondylolisthesis; Translations: [Spondylolisthesis, lumbar region] 08-04-2023 Episodic Other acquired deformities (1 source) Spondylolisthesis, lumbar region; Translations: [Spondylolisthesis, lumbar region] Onset: 05-28-2024 Episodic Other connective tissue disease (1 source) Presence of unspecified artificial hip joint; Translations: [PRESENCE UNS ARTIFICIAL HIP JOINT] Onset: 02-23-2021 Chronic Other connective tissue disease (4 sources) Pain in right foot; Translations: [PAIN IN RIGHT FOOT] Onset: 12-03-2021 Episodic Other connective tissue disease (1 source) Calcaneal spur, right foot; Translations: [CALCANEAL SPUR RIGHT FOOT] Onset: 12-08-2021 Episodic Other diseases of kidney and ureters (3 sources) Urinary tract obstruction; Translations: [Other obstructive and reflux uropathy] Onset: 02-23-2024 Episodic Other liver diseases (1 source) Steatosis of liver; Translations: [Fatty (change of) liver, not elsewhere classified] 01-23-2024 Chronic Other nutritional; endocrine; and metabolic disorders (2 sources) Hypomagnesemia; Translations: [Hypomagnesemia] Onset: 08-30-2023 Chronic Other nutritional; endocrine; and metabolic disorders (20 sources) Severe obesity; Translations: [Class 2 severe obesity due to excess calories with serious comorbidity and body mass index (BMI) of 36.0 to 36.9 in adult] Onset: 04-07-2023 04-03-2024 Chronic Other nutritional; endocrine; and metabolic disorders (19 sources) Hypomagnesemia; Translations: [Hypomagnesemia] Onset: 08-31-2023 08-31-2023 Chronic Other nutritional; endocrine; and metabolic disorders (1 source) Body mass index (BMI) 39.0-39.9, adult; Translations: [Body mass index (BMI) 39.0-39.9, adult] Onset: 04-07-2023 Chronic Other nutritional; endocrine; and metabolic disorders (1 source) Morbid (severe) obesity due to excess calories; Translations: [Morbid (severe) obesity due to excess calories] Onset: 08-04-2023 Chronic Other screening for suspected conditions (not mental disorders or infectious disease) (3 sources) Encounter for screening for malignant neoplasm of prostate; Translations: [Screening for malignant neoplasm done] Onset: 03-01-2024 Episodic Other upper respiratory infections (1 source) Chronic sinusitis, unspecified; Translations: [Chronic sinusitis, unspecified] Onset: 11-23-2017 Chronic Residual codes; unclassified (2 sources) Tobacco user 05-24-2024 Episodic Spondylosis; intervertebral disc disorders; other back problems (20 sources) Degeneration of lumbar intervertebral disc; Translations: [Degeneration of lumbar intervertebral disc] Onset: 06-29-2018 03-02-2022 Chronic Substance-related disorders (20 sources) Nicotine dependence, cigarettes, uncomplicated; Translations: [Cigarette smoker ] Onset: 05-12-2020 03-02-2022 Chronic Unclassified (2 sources) Chronic sinusitis, unspecified / J32.9(ICD-10) Onset: 11-23-2017 Unclassified (1 source) Annual Exam Onset: 05-28-2024 Unclassified (1 source) controlled Onset: 04-03-2024 Unclassified (1 source) Er Follow-up Onset: 01-19-2024 Past or Other Problems Problem Classification Problem Date Documented Da te Episodic/Chronic Acute and unspecified renal failure (3 sources) Acute kidney failure, unspecified; Translations: [Acute nontraumatic kidney injury] Onset: 4 08-30-2023 Episodic Calculus of urinary tract (6 sources) History of calculus of kidney; Translations: [Personal history of urinary calculi] Onset: 4 Episodic Diabetes mellitus without complication (20 sources) Prediabetes; Translations: [Prediabetes] Onset: 3 12-03-2022 Episodic Headache; including migraine (20 sources) Headache; Translations: [Headache] Onset: 9 03-02-2022 Episodic Immunizations and screening for infectious disease (1 source) Contact with and (suspected) exposure to other viral communicable diseases Onset: 2 Resolved: 2 Episodic Malaise and fatigue (8 sources) Fatigue; Translations: [Other fatigue] Onset: 4 04-03-2024 Episodic Mood disorders (20 sources) Mood disorders Onset: 4 Resolved: 4 05-28-2024 Other acquired deformities (1 source) Spondylolisthesis L5/S1 level; Translations: [Spondylolisthesis, lumbosacral region] Episodic Other aftercare (1 source) Other intermediate (current) drug therapy; Translations: [OTH USP CURRENT DRUG THERAPY] Onset: 1 Episodic Other and unspecified benign neoplasm (1 source) Benign lipomatous neoplasm, unspecified; Translations: [Benign lipomatous neoplasm, unspecified] Onset: 4 Episodic Other and unspecified benign neoplasm (1 source) Lipoma (clinical); Translations: [Benign lipomatous neoplasm, unspecified] 01-02-2024 Episodic Other connective tissue disease (20 sources) Iliotibial band friction syndrome; Translations: [Iliotibial band syndrome, unspecified leg] Onset: 2 03-02-2022 Episodic Other connective tissue disease (2 sources) Lateral epicondylitis of left humerus; Translations: [Lateral epicondylitis, left elbow] 06-21-2023 Episodic Other gastrointestinal disorders (1 source) Diarrhea, unspecified Onset: 2 Resolved: 2 Episodic Other gastrointestinal disorders (1 source) Abdominal bloating; Translations: [Abdominal distension (gaseous)] 10-10-2023 Episodic Other gastrointestinal disorders (1 source) Abdominal distension (gaseous); Translations: [Abdominal distension (gaseous)] Onset: 4 Episodic Other infections; including parasitic (20 sources) Personal history of other infectious and parasitic diseases; Translations: [History of COVID-19] Onset: 2 03-02-2022 Episodic Other non-traumatic joint disorders (4 sources) Pain in right knee; Translations: [PAIN IN RIGHT KNEE] Onset: 1 Episodic Other nutritional; endocrine; and metabolic disorders (20 sources) Morbid obesity; Translations: [Morbid (severe) obesity due to excess calories] Onset: 9 Resolved: 4 04-03-2024 Chronic Other nutritional; endocrine; and metabolic disorders (1 source) Weight loss Onset: 4 Episodic Spondylosis; intervertebral disc disorders; other back problems (20 sources) Lumbar disc prolapse with radiculopathy; Translations: [Intervertebral disc disorders with radiculopathy, lumbar region] Onset: 3 12-03-2022 Episodic Sprains and strains (1 source) Sprain of unspecified site of right knee, initial encounter; Translations: [SPRAIN UNS SITE RT KNEE INITIAL] Onset: 1 Episodic Results Test Name Value Interpretation Reference Range Facility Reminderson 08-08-2024 Reminders Reminders From: Carlie Ramirez To: EU - Administrative; Sent: 05/24/2024 15:40:45 EST Show up: 07/14/2024 15:40:00 EST Subject: Ambulatory Reminder Due Date/Time: 09/11/2024 15:40:00 EDT Reminder/Recall Patient needs scheduled with [facility] for a 3-4m f/u in [place], schedule not built for her yet. due back the beginning of September, Pt has been scheduled for 09/2024 w/AG Normal [facility] COMPREHENSIVE METABOLIC PANE Clint 05-28-2024 Albumin [Mass/Vol] 4.5 g/dL Normal 3.2-5.3 [facility] Comment on above: Performed By: #### Neyda LAU, [id number] #### [facility] ([id number]) [address], [address] [place] [address] ALP [Catalytic activity/Vol] 75 U/L Normal 39-130 [facility] Comment on above: Performed By: #### Neyda LAU, 29515-8 #### [facility] ([id number]) [address], [address] [place] [address] ALT [Catalytic activity/Vol] 29 U/L Normal 0-40 [facility] Comment on above: Performed By: #### Neyda LAU, 84986-1 #### [facility] ([id number]) [address], [address] [place] [address] Anion gap [Moles/Vol] 10 mmol/L Normal 5-15 [facility] Comment on above: Performed By: #### Neyda LAU, 08834-0 #### [facility] ([id number]) [address], [address] [place] [address] AST [Catalytic activity/Vol] 28 U/L Normal 0-41 [facility] Comment on above: Performed By: #### Neyda LAU, 37259-5 #### [facility] ([id number]) [address], [address] [place] [address] Bilirubin [Mass/Vol] 0.4 mg/dL Normal 0.3-1.2 [facility] Comment on above: Performed By: #### Neyda LUA, 81018-2 #### [facility] ([id number]) [address], [address] [place] [address] Calcium [Mass/Vol] 10.4 mg/dL Normal 8.5-10.5 [facility] Comment on above: Performed By: #### Neyda LAU, 83902-8 #### [facility] ([id number]) [address], [address] [place] [address] Chloride [Moles/Vol] 105 mmol/L Normal 98-109 [facility] Comment on above: Performed By: #### Neyda LAU, 31474-1 #### [facility] ([id number]) [address], [address] [place] [address] CO2 [Moles/Vol] 26 mmol/L Normal 22-32 [facility] Comment on above: Performed By: #### Neyda LAU, 62821-7 #### [facility] ([id number]) [address], [address] [place] [address] Creatinine [Mass/Vol] 1.05 mg/dL Normal 0.60-1.30 [facility] Comment on above: Result Comment: METH OD TRACEABLE TO IDMS STANDARD Performed By: #### Neyda LAU, 70754-4 #### [facility] ([id number]) [address], [address] [place] [address] GFR/1.73 sq M.predicted among non-blacks MDRD (S/P/Bld) [Vol rate/Area] 86 mL/min/{1.73_m2} Normal >59 [facility] Comment on above: Result Comment: Reported eGFR is based on the CKD-EPI 2020 equation that does not use a race coefficient. Performed By: #### Neyda LAU 10920-8 #### [facility] ([id number]) [address], [address] [place] [address] Glucose [Mass/Vol] 132 mg/dL High 65-99 [facility] Comment on above: Performed By: #### Neyda LAU 80930-5 #### [facility] ([id number]) [address] [address] [address] [address] [place] [address] Potassium [Moles/Vol] 4.2 mmol/L Normal 3.5-5.0 [facility] Comment on above: Performed By: #### Neyda LAU 12954-0 #### [facility] ([id number]) [address], [address] [place] [address] Protein [Mass/Vol] 7.6 g/dL Normal 6.0-8.0 [facility] Comment on above: Performed By: #### Neyda LAU 56096-8 #### [facility] ([id number]) [address], [address] [place] [address] Sodium [Moles/Vol] 141 mmol/L Normal 134-146 [facility] Comment on above: Performed By: #### Neyda LAU 97328-5 #### [facility] ([id number]) [address] [address] [place] [address] Urea nitrogen [Mass/Vol] 18 mg/dL Normal 5-23 [facility] Comment on above: Performed By: #### Neyda LAU 48814-4 #### [facility] ([id number]) [address], [address] [place] [address] Lipid 1996 panelon 4 Cholesterol [Mass/Vol] 118 mg/dL Low 150-200 [facility] Comment on above: Performed By: #### Neyda LAU, 69655-6 #### [facility] ([id number]) [address], [address] [place] [address] Cholesterol in HDL [Mass/Vol] 27 mg/dL Low >39 [facility] Comment on above: Result Comment: HDL <40 mg/dL - High Risk HDL > or = 40mg/dL- Desirable HDL >60 mg/dL - Negative Risk Performed By: #### Neyda LAU, 83935-0 #### [facility] ([id number]) [address], [address] [place] [address] Cholesterol in LDL [Mass/Vol] 44 mg/dL Normal <130 [facility] Comment on above: Result Comment: LDL <100 mg/dL - Desirable LDL >160 mg/dL - High Risk Performed By: #### Neyda LAU, 20668-7 #### [facility] ([id number]) [address], [address] [place] [address] Cholesterol in VLDL [Mass/Vol] 47 mg/dL High 0-30 [facility] Comment on above: Performed By: #### Neyda LAU, 84196-0 #### [facility] ([id number]) [address], [address] [place] [address] CHOLESTEROL:HDL 4.4 Normal 1.0-5.0 [facility] Comment on above: Performed By: #### C SID, [id number] #### [facility] ([id number]) [address], [address] [place] [address] Triglyceride [Mass/Vol] 233 mg/dL High 27-150 [facility] Comment on above: Performed By: #### C SID, [id number] #### [facility] ([id number]) [address], [address] [place] [address] Ambulatory Visit Summaryon 1 07-25-2023 Ambulatory Visit Summary Ambulatory Visit Summary JORGITO JOVEL :1975 Visit Date:01/25/2024 Ambulatory Visit Instructions Your Care Team Primary Care Physician - SHAHBAZ MANCINI DO This Is Your Medications List acetaminophen-hydrocod one (acetaminophen-hydroco done 325 mg-5 mg oral tablet) atorvastatin (atorvastatin 20 mg Tab) fenofibrate (fenofibrate 160 mg oral tablet) magnesium oxide (magnesium oxide 400 mg Tab) omeprazole (omeprazole 20 mg Cap-DR) oxybutynin (oxybutynin 5 mg ER Tab) tamsulosin (Flomax 0.4 mg Cap) Procedures Performed 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 Medications What How Much When Why Instructions Unchanged acetaminophen-hydrocod one (acetaminophen-hydroco done 325 mg-5 mg oral tablet) TAKE 1 [...] 1 Capsules By Mouth Every day Unchanged oxybutynin (oxybutynin 5 mg ER Tab) 1 Tablets By Mouth Every day Unchanged tamsulosin (Flomax 0.4 mg Cap) 1 Capsules By Mouth Every day BPH with obstruction/lower urinary tract symptoms Allergies No Known Allergies Problems Ongoing - Any problem that you are currently receiving treatment for. BPH with obstruction/lower urinary tract symptoms Hematuria, gross Patient Survey You may receive a survey via text or e-mail asking about your office visit. Please share your experience with us by completing your survey. We appreciate your feedback and thank you for choosing us for your care. Normal [facility] CHEMISTRYOrdered By: SYSTEM SYSTEM on 05-24-2024 Prostate specific Ag [Mass/Vol] 0.8 ng/mL Normal 0.1 - 3.5 ng/mL [facility] Comment on above: Interpretive Data: T he concentration of PSA determined by different manufacturers can vary due to differences in assay methods and reagent specificity. Values obtained from different assay methods cannot be used interchangeably. The methodology used for this result was chemiluminescence using [employer]'s Access Hybritech PSA reagent. PSA Totalon 05-24-2024 Prostate specific Ag [Mass/Vol] 0.8 ng/mL Normal 0.1-3.5 [facility] Comment on above: Result Comment: The concentration of PSA determined by different manufacturers can vary due to differences in assay methods and reagent specificity. Values obtained from different assay methods cannot be used interchangeably. The methodology used for this result was chemiluminescence using [employer]'s Access Hybritech PSA reagent. Performed By: #### 1 [id number] #### [facility] [address] [place] [address] Urology Office/Clinic Noteon 05-24-2024 Urology Office/Clinic Note Urology Office/Clinic Note Chief Complaint 3 mth f/u HPI Staff 49 year old male patient here for 3 month follow up with PSA. Was to have PSA drawn at PCP in Mar. PSA. Previous Dx: hx of kidney stones, BPH with obstruction/LUTS, screening PSA, AMH. *Flomax 0.4mg qd, oxybutynin 5mg qd pt is not taking the flomax, also pt feels Oxybutynin is not working as well as it should Dysuria: _no. pt does states a few days ago he had discomfort after urinating and felt he still had to go. Incomplete bladder emptying: _yes Hematuria: _no Frequency: _q2-3 hrs or longer Urgency: _yes Nocturia: _1x Stream: _weak Leaking: _no Post void dripping: _yes Wearing pads/ Depends: _no Urge incontinence: _no Stress incontinence: _no Incontinence without Sensory Awareness: _no Abdominal pain: _no Flank pain: _no Sexual complaints: _no History of Present Illness I have reviewed and verified the staff HPI to be accurate for this encounter. Review of Systems PHQ Score Initial Depression Screen Score: 0 SCORE Physical Exam Vitals & Measurements HR: 76(Peripheral) BP: 138/88 HT: 66 in HT: 168 cm WT: 102.6 kg WT: 226.194 lb BMI: 36.35 General: Well developed, well nourished, in no acute distress. Assessment/Plan MIRACLE 20 1. BPH with obstruction/lower urinary tract symptoms (N40.1: Benign prostatic hyperplasia with lower urinary tract symptoms) UA today negative for blood or infection PVR today 80ml IPSS 11, QoL 4 Pt reports feeling of incomplete bladder emptying and urgency. Denies weak stream but weak stream reported in HPI. Pt denies hesitancy. States he is has some occasional leakage after he voids, which is most bothersome to him. Pt has been taking Oxybutynin per PCP, states this medication helps with his urgency. Patient reports he is no longer taking Flomax because he ran out of refills. Recommend to pt to restart Flomax to help with his sxs. Pt agreeable. We discussed male urologic anatomy including the prostate and how this is likely contributing to his urinary symptoms. We discussed how potential prostate obstruction could affect long-term bladder health and compliance. If sxs not improving with Flomax, then recommend next steps would be to evaluate degree of CHAUDHARY with cystoscopy. -Restart Flomax 0.4 mg PO daily -Continue Oxybutynin 5 mg PO daily -Timed voids, avoid bladder irritants -F/U 3 months, consider cystoscopy 2. History of kidney stones (Z87.442: Personal history of urinary calculi) 01/08/[address] [facility] ER CT w/o con - mild R hydronephrosis due to a 5mm proximal R ureteral stone near the UPJ. No additional upper or lower urinary tract calculi are seen on either side. There are no other acute findings in the abdomen or pelvis 02/16/24 KUB - no appreciable urinary tract calculi 03/06/24 IVP - Normal IVP. No residual stone within right ureter. Pt went to [facility] ER on 01/08/24 due to pain. Pt was given Tramadol & Flomax, pt reports that he has not had pain since 01/20. Pt was seen in office on 02/23/24 and denied ever seeing the stone pass but he was not provided with a strainer in ER. Pt denied wanting imaging done at first appointment with our office to ensure stone passage. Pt then went to [facility] ER on 02/27/24 for gross hematuria, abdominal/scrotal pain and also experienced urinary frequency and urgency. No labs or imaging were completed at that visit. Advised pt that he most likely was passing a stone at that time. IVP completed 03/06/24, no stone identified. This is patient's first stone event. Today, he denies further stone events. Denies gross hematuria. -Increase fluids -Add lemon/duckwater to fluid intake -Call our office for any stone symptoms -F/u 1 yr with KUB/KECIA 3. Hematuria, gross (R31.0: Gross hematuria) Denies seeing blood in urine since stone event. UA today negative for blood or infection -See #2 -Pt to call if he experiences gross hematuria 4. Asymptomatic microscopic hematuria (R31.21: Asymptomatic microscopic hematuria) 02/23/24 micro UA - RBC 0-3, cx negative UA today negative for blood or infection -See #2 5. Screening PSA (prostate specific antigen) (Z12.5: Encounter for screening for malignant neoplasm of prostate) Pt has never had PSA checked. Pt's father was diagnosed with prostate cancer in his 60's and had prostatectomy. Pt's father is from heart and lung disease. PSA ordered at last visit, not completed. -Pt agreeable to have PSA drawn IO today, will call with results Stefany Valadez PA-C personally scribed for Kiarra Min CNP on 05/24/2024 10:48:26. . Follow-up With When Contact Information Mechelle BARCENAS, Kiarra Gant, URL Additional Instructions: F/U 3 months Patient Education Prostate Cancer Screening Prostate Cancer Screening Benign Prostatic Hyperplasia Documentation recorded by the scribADARSH Hwang accurately reflects the services(s) I performed and decisions made by me. Authentic (more content not included)... Normal [facility] Comment on above: Result Comment: Elec tronically Signed By: Kiarra Christiansen\.br\Date and Time Signed: 05/24/24 11:08 EST\.br\Electronically Co-Signed By: Stefany Farooq PA-C\.br\Date and Time Co-Signed: 05/24/24 10:54 EST Provider Letteron 03-06-2024 Provider Letter Provider Letter March 06, 2024 [facility] [address] [place] [id number] : 1975 To Whom It May Concern, Please excuse above patient from work. Date of appointment: From: 03/06/2024 To: _ May Return to Work On:03/06/2024 Restrictions: none Comments: Any questions, please call our office Sincerely, [facility] [address], [place] [address] [facility] Ambulatory Visit Summaryon 0 03-01-2024 Ambulatory Visit Summary Ambulatory Visit Summary JEFEFRENJORGITO :1975 Visit Date:03/01/2024 Ambulatory Visit Instructions Your Diagnosis Gross hematuria Your Care Team Attending Physician - Kiarra Christiansen Primary Care Physician - SHAHBAZ MANCINI DO This Is Your Medications List acetaminophen-hydrocod one (acetaminophen-hydroco done 325 mg-5 mg oral tablet) atorvastatin (atorvastatin [...] With: Kiarra Christiansen Where: [facility] [address] [place] [address]- Medications What How Much When Why Instructions Unchanged acetaminophen-hydrocod one (acetaminophen-hydroco done 325 mg-5 mg oral tablet) TAKE 1 [...] for choosing us for your care. Normal [facility] Urology Office/Clinic Noteon 03-01-2024 Urology Office/Clinic Note Urology Office/Clinic Note Chief Complaint gross hematuria HPI Staff Pt here for ER f/u. Last OV 02/23/24. Dx: hx of kidney stones, BPH with obstruction/LUTS, screening PSA, AMH. Neg micro UA and cx 02/22/23. [facility] ER 02/27/24 due to gross hematuria without [...] (Z87.442: Personal history of urinary calculi) 01/08/[address] [facility] ER CT w/o con - mild R hydronephrosis due to a 5mm proximal R ureteral stone near the UPJ. No additional upper or lower urinary tract calculi are seen on either side. There are no other acute findings in the abdomen or pelvis 02/16/24 KUB - no appreciable urinary tract calculi Pt went to [facility] ER on 01/08/24 due to [...] not had pain. Pt then went to [facility] ER on 02/27/24 for gross hematuria, abdominal/scrotal [...] drink a lot of water and drinks [employer]. Discussed increasing fluids and adding lemon/duckwater to patient's regimen, pt verbalizes understanding. Briefly discussed metabolic workup with patient should he develop another stone. -IVP now at [facility], call patient with results -If a stone is present, we will set patient up with appt with Dr. Nunn to discuss treatment. If no stone on IVP, this will ensure stone passage and pt to follow up as scheduled -Increase fluids, avoid bladder irritants -Add lemon/duckwater, lemonade to fluid intake -Call our office for any stone symptoms -F/U 1 year with KUB/KECIA Ordered: E&M of Est. Patient Moderate 30-39 Min 89092 2. Gross hematuria (R31.0: Gross hematuria) UA today negative for blood or infection -See #1 Ordered: Creatinine E&M of Est. Patient Moderate 30-39 Min 55828 Urnls Dip Stick Auto w/o Microscopy POC 57116 XR IVP 3. BPH with obstruction/lower urinary [...] daily -Increase (more content not included)... Normal [facility] Comment on above: Result Comment: Elec tronically Signed By: Mechelle BARCENAS, Kiarra Gant\.jean\Date and Time Signed: 03/01/24 15:58 EDT C [...] Locations R1: This test was performed at: [facility], [address] [place] [address], [phone] [phone] , [facility] Comment on above: Performed By: #### 2 [id number] #### [facility] [address] [place] [address] Ambulatory Visit Summaryon 0 02-23-2024 Ambulatory Visit Summary Ambulatory Visit Summary JORGITO JOVEL :1975 Visit Date:01/25/2024 Ambulatory Visit Instructions Your Care Team Primary Care Physician - SHAHBAZ MANCINI DO This Is Your Medications List acetaminophen-hydrocod one (acetaminophen-hydroco done 325 mg-5 mg oral tablet) atorvastatin (atorvastatin 20 mg Tab) fenofibrate (fenofibrate 160 mg oral tablet) magnesium oxide (magnesium oxide 400 mg Tab) omeprazole (omeprazole 20 mg Cap-DR) What to do next Scheduled Follow-Up Appointments 2023 9:00 AM EST With: Kiarra Christiansen Where: [facility] [address] [address] Medications What How Much When Instructions Unchanged acetaminophen-hydrocod one (acetaminophen-hydroco done 325 mg-5 mg oral tablet) TAKE 1 [...] for choosing us for your care. Normal [facility] Provider Letteron 02-23-2024 Provider Letter Provider Letter February 23, 2024 JORGITO JOVEL [address] [place] [address] : 1975 To Whom It May Concern, Please excuse above patient from work. Date of appointment: From: 02/23/2024 To: _ May Return to Work On:02/23/2024 Restrictions: none Comments: Any questions, please call our office Sincerely, [facility] [address], [place] [address] Normal [facility] URINALYSISOrdered By: SYSTEM SYSTEM on 02-23-2024 Bilirubin Ql (U) Negative Normal Negativemg/ d L [facility] UA Auto SS Clarity (U) Ex.Turbid *ABN* (02/23/24 11:17 AM) Invalid Interpretation Code Clear [facility] UA Auto SS Color (U) Yellow 1 (02/23/24 11:17 AM) Normal Yellow [facility] UA Auto SS Comment on above: Interpretive Data: M icroscopic readings are only performed on those samples that meet specific criteria set forth by [facility]. Crystals.amorphous Computer assisted Ql (U) Present graded/HPF Invalid Interpretation Code [facility] UA Auto SS Glucose Ql (U) Negative Normal Negativemg/d L [facility] UA Auto SS Hemoglobin Auto test strip (U) [Mass/Vol] Negative Normal Negativemg/d L [facility] UA Auto SS Ketones Auto test strip Ql (U) Negative Normal Negativemg/d L [facility] UA Auto SS Leukocyte esterase Auto test strip Ql (U) Negative Normal NegativeLeu/ uL [facility] UA Auto SS Mucus Auto Ql (U) 1+ graded/LPF Invalid Interpretation Code Negativegrad ed/LPF [facility] UA Auto SS Nitrite Auto test strip Ql (U) Negative Normal Negativemg/d L [facility] UA Auto SS pH (U) 5.0 *NA* (02/23/24 11:17 AM) Invalid Interpretation Code 5.0 - 9.0 [facility] UA Auto SS Protein Ql (U) Negative Normal Negativemg/d L [facility] UA Auto SS RBC Ql (U) 0-3 graded/HPF Normal 0-3graded/HP F [facility] UA Auto SS Specific gravity (U) [Rel density] 1.025 *NA* (02/23/24 11:17 AM) Invalid Interpretation Code 1.005 - 1.030 [facility] UA Auto SS Urobilinogen (U) [Mass/Vol] Negative Normal Negativemg/d L [facility] UA Auto SS URINALYSISOrdered By: Kathy Busch on 02-23-2024 UA Spec Desc Clean Catch (02/23/24 11:17 AM) Normal [facility] UA Auto SS Urinalysis with Microon 02-11 Bilirubin Ql (U) Negative Normal Negative [facility] Comment on above: Performed By: #### 4 [id number] #### [facility] [address] [place] [address] Clarity (U) Ex.Turbid Abnormal Clear [facility] Comment on above: Performed By: #### 4 [id number] #### [facility] [address] [place] [address] Color (U) Yellow Normal Yellow [facility] Comment on above: Result Comment: Micr oscopic readings are only performed on those samples that meet specific criteria set forth by [facility]. Performed By: #### 4 [id number] #### [facility] [address] [place] [address] Crystals.amorphous Computer assisted Ql (U) Present Abnormal [facility] Comment on above: Performed By: #### 4 [id number] #### [facility] [address] [place] [address] Glucose Ql (U) Negative Normal Negative [facility] Comment on above: Performed By: #### 4 [id number] #### [facility] [address] [place] [address] Hemoglobin Auto test strip (U) [Mass/Vol] Negative Normal Negative [facility] Comment on above: Performed By: #### 4 [id number] #### [facility] [address] [place] [address] Ketones Auto test strip Ql (U) Negative Normal Negative [facility] Comment on above: Performed By: #### 4 [id number] #### [facility] [address] [place] [address] Leukocyte esterase Auto test strip Ql (U) Negative Normal Negative [facility] Comment on above: Performed By: #### 4 [id number] #### [facility] [address] [place] [address] Mucus Auto Ql (U) 1+ CD:[id number] Abnormal Negative [facility] Comment on above: Performed By: #### 4 [id number] #### [facility] [address] [place] [address] Nitrite Auto test strip Ql (U) Negative Normal Negative [facility] Comment on above: Performed By: #### 4 [id number] #### [facility] [address] [place] [address] pH (U) 5.0 [pH] Invalid Interpretation Code 5.0-9.0 [facility] Comment on above: Performed By: #### 4 [id number] #### [facility] [address] [place] [address] Protein Ql (U) Negative Normal Negative [facility] Comment on above: Performed By: #### 4 [id number] #### [facility] [address] [place] [address] RBC Ql (U) 0-3 Normal 0-3 [facility] Comment on above: Performed By: #### 4 [id number] #### [facility] [address] [place] [address] Specific gravity (U) [Rel density] 1.025 Invalid Interpretation Code 1.005-1.030 [facility] Comment on above: Performed By: #### 4 [id number] #### [facility] [address] [place] [address] Urobilinogen (U) [Mass/Vol] Negative Normal Negative [facility] Comment on above: Performed By: #### 4 [id number] #### [facility] [address] [place] [address] Type of Urine collection method Clean Catch Normal [facility] Comment on above: Performed By: #### 4 [id number] #### [facility] [address] [place] [address] COMPREHENSIVE METABOLIC PANE [facility] 08-30-2023 Albumin [Mass/Vol] 4.1 g/dL Normal 3.2-5.3 [facility] Comment on above: Performed By: #### C SID, #### [facility] ([id number]) [address], [address] [place] [address] ALP [Catalytic activity/Vol] 32 U/L Low 39-130 [facility] Comment on above: Performed By: #### Neyda LAU, #### [facility] ([id number]) [address], [address] [place] [address] ALT [Catalytic activity/Vol] 58 U/L High 0-40 [facility] Comment on above: Performed By: #### Neyda LAU, #### [facility] ([id number]) [address], [address] [place] [address] Anion gap [Moles/Vol] 9 mmol/L Normal 5-15 [facility] Comment on above: Performed By: #### Neyda LAU, #### [facility] ([id number]) [address], [address] [place] [address] AST [Catalytic activity/Vol] 40 U/L Normal 0-41 [facility] Comment on above: Performed By: #### Neyda LAU, #### [facility] ([id number]) [address], [address] [place] [address] Bilirubin [Mass/Vol] 0.3 mg/dL Normal 0.3-1.2 [facility] Comment on above: Performed By: #### Neyda LAU, #### [facility] ([id number]) [address], [address] [place] [address] Calcium [Mass/Vol] 9.7 mg/dL Normal 8.5-10.5 [facility] Comment on above: Performed By: #### C SID, #### [facility] ([id number]) [address], [address] [place] [address] Chloride [Moles/Vol] 107 mmol/L Normal 98-109 [facility] Comment on above: Performed By: #### Neyda LAU, #### [facility] ([id number]) [address], [address] [place] [address] CO2 [Moles/Vol] 26 mmol/L Normal 22-32 [facility] Comment on above: Performed By: #### Neyda LAU, #### [facility] ([id number]) [address], [address] [place] [address] Creatinine [Mass/Vol] 1.18 mg/dL Normal 0.60-1.30 [facility] Comment on above: Result Comment: METH OD TRACEABLE TO IDMS STANDARD Performed By: #### C SID, #### [facility] ([id number]) [address], [address] [place] [address] GFR/1.73 sq M.predicted among non-blacks MDRD (S/P/Bld) [Vol rate/Area] 75 mL/min/{1.73_m2} Normal >59 [facility] Comment on above: Result Comment: Reported eGFR is based on the CKD-EPI 2020 equation that does not use a race coefficient. Performed By: #### C SID, #### [facility] ([id number]) [address], [address] [place] [address] Glucose [Mass/Vol] 92 mg/dL Normal 65-99 [facility] Comment on above: Performed By: #### C SID, #### [facility] ([id number]) [address], [address] [place] [address] Potassium [Moles/Vol] 4.1 mmol/L Normal 3.5-5.0 [facility] Comment on above: Performed By: #### Neyda LAU, #### [facility] ([id number]) [address], [address] [place] [address] Protein [Mass/Vol] 6.8 g/dL Normal 6.0-8.0 [facility] Comment on above: Performed By: #### Neyda LAU, #### [facility] ([id number]) [address], [address] [place] [address] Sodium [Moles/Vol] 142 mmol/L Normal 134-146 [facility] Comment on above: Performed By: #### Neyda LAU, #### [facility] ([id number]) [address], [address] [place] [address] Urea nitrogen [Mass/Vol] 23 mg/dL Normal 5-23 [facility] Comment on above: Performed By: #### Neyda LAU, #### [facility] ([id number]) [address], [address] [place] [address] Comprehensive metabolic pane clint 08-30-2023 Albumin [Mass/Vol] 4.1 g/dL 3.2 - 5.3 g/dL [facility] ALP [Catalytic activity/Vol] 32 U/L Low 39 - 130 U/L [facility] ALT No additional P-5'-P [Catalytic activity/Vol] 58 U/L High 0 - 40 U/L [facility] Anion gap [Moles/Vol] 9 mmol/L 5 - 15 mmol/L [facility] AST [Catalytic activity/Vol] 40 U/L 0 - 41 U/L [facility] Bilirubin [Mass/Vol] 0.3 mg/dL 0.3 - 1 .2 mg/dL [facility] Calcium [Mass/Vol] 9.7 mg/dL 8.5 - 10. 5 mg/dL [facility] Chloride [Moles/Vol] 107 mmol/L 98 - 10 9 mmol/L [facility] CO2 [Moles/Vol] 26 mmol/L 22 - 32 mmol/L [facility] Creatinine [Mass/Vol] 1.18 mg/dL 0.60 - 1.30 mg/dL [facility] Comment on above: METHOD TRACEABLE TO [facility] STANDARD eGFR (CKD-EPI)non-race dependent 75 - PINF [facility] Comment on above: Reported eGFR is based on the CKD-EPI 2020 equation that does not use a race coefficient. Glucose [Mass/Vol] 92 mg/dL 65 - 99 mg/dL [facility] Potassium [Moles/Vol] 4.1 mmol/L 3.5 - 5.0 mmol/L [facility] Protein [Mass/Vol] 6.8 g/dL 6.0 - 8.0 g/dL [facility] Sodium [Moles/Vol] 142 mmol/L 134 - 146 mmol/L [facility] Urea nitrogen [Mass/Vol] 23 mg/dL 5 - 23 mg/dL [facility] MAGNESIUMon 08-30-2023 Magnesium [Mass/Vol] 1.7 mg/dL Low 1.8-2.6 [facility] Comment on above: Performed By: #### C , [id number] #### [facility] ([id number]) [address] [place] [address], [address] [place] [address] Magnesiumon 08-30-2023 Magnesium [Mass/Vol] 1.7 mg/dL Low 1.8 - 2 .6 mg/dL [facility] No Panel Informationon 08-29 Interpretation and review of laboratory results Abnormal [facility] COVID Quick Testingon 2021 Result Negative stylemarks Other COMPREHENSIVE METABOLIC PANE Clint 06-02-2021 Albumin [Mass/Vol] 4.2 g/dL Normal 3.6-5.1 [facility] Comment on above: Performed By: #### 1 0231, 7600 #### [facility] of [place] [address] Capacity Planner: Curtis Doan MD Albumin/Globulin [Mass ratio] 1.6 {ratio} Normal 1.0-2.5 [facility] Comment on above: Performed By: #### 1 0231, 7600 #### [facility] of [address], [address] [place] [address] Capacity Planner: Curtis Doan MD ALP [Catalytic activity/Vol] 44 U/L Normal 36-130 [facility] Comment on above: Performed By: #### 1 0231, 7600 #### [facility] of [place] [address] Capacity Planner: Curtis Doan MD ALT [Catalytic activity/Vol] 17 U/L Normal 9-46 [facility] Comment on above: Performed By: #### 1 023, 7600 #### [facility] of [place] [address] Capacity Planner: Curtis Doan MD AST [Catalytic activity/Vol] 17 U/L Normal 10-40 [facility] Comment on above: Performed By: #### 1 0231, 7600 #### [facility] of [address], [address] [place] [address] Capacity Planner: Curtis Doan MD Bilirubin [Mass/Vol] 0.3 mg/dL Normal 0.2-1.2 [facility] Comment on above: Performed By: #### 1 0231, 7600 #### [facility] of [place] [address] Capacity Planner: Curtis Doan MD Calcium [Mass/Vol] 9.6 mg/dL Normal 8.6-10.3 [facility] Comment on above: Performed By: #### 1 0231, 7600 #### [facility] of [address], [address] [place] [address] Capacity Planner: Curtis Doan MD Chloride [Moles/Vol] 107 mmol/L Normal 98-110 [facility] Comment on above: Performed By: #### 1 0231, 7600 #### [facility] of [address], [address] [place] [address] Capacity Planner: Curtis Doan MD CO2 [Moles/Vol] 26 mmol/L Normal 20-32 [facility] Comment on above: Performed By: #### 1 023, 7600 #### [facility] of [address], [address] [place] [address] Capacity Planner: Curtis Doan MD Creatinine [Mass/Vol] 0.89 mg/dL Normal 0.60-1.35 [facility] Comment on above: Performed By: #### 1 023, 7600 #### [facility] of [place] [address] Capacity Planner: Curtis Doan MD eGFR NON-AFR. NAMIBIAN 101 mL/min/1.73m2 Normal > OR = 60 [facility] Comment on above: Performed By: #### 1 023, 0 #### [facility] of [place] [address] Capacity Planner: Curtis Doan MD GFR/1.73 sq M.predicted among blacks MDRD (S/P/Bld) [Vol rate/Area] 117 mL/min/{1.73_m2} Normal > OR = 60 [facility] Comment on above: Performed By: #### 1 023, 7600 #### [facility] of [place] [address] Capacity Planner: Curtis Doan MD Globulin (S) [Mass/Vol] 2.7 g/dL Normal 1.9-3.7 [facility] Comment on above: Performed By: #### 1 023, 7600 #### [facility] of [place] [address] Capacity Planner: Curtis Doan MD Glucose [Mass/Vol] 103 mg/dL Normal 65-139 [facility] Comment on above: Result Comment: Non-fasting reference interval For someone without known diabetes, a glucose value between 100 and 125 mg/dL is consistent with prediabetes and should be confirmed with a follow-up test. Performed By: #### 1 023, 7600 #### [facility] [place] [address] Capacity Planner: Curtis Doan MD Potassium [Moles/Vol] 4.1 mmol/L Normal 3.5-5.3 [facility] Comment on above: Performed By: #### 1 023, 7600 #### [facility] [place] [address] Capacity Planner: Curtis Doan MD Protein [Mass/Vol] 6.9 g/dL Normal 6.1-8.1 [facility] Comment on above: Performed By: #### 1 023, 7600 #### [facility] [place] [address] Capacity Planner: Curtis Doan MD Sodium [Moles/Vol] 140 mmol/L Normal 135-146 [facility] Comment on above: Performed By: #### 1 023, 7600 #### [facility] [place] [address] Capacity Planner: Curtis Doan MD Urea nitrogen [Mass/Vol] 27 mg/dL High 7-25 [facility] Comment on above: Performed By: #### 1 023, 7600 #### [facility] [place] [address] Capacity Planner: Curtis Doan MD Urea nitrogen/Creatinine [Mass ratio] 30 mg/mg High 6-22 [facility] Comment on above: Performed By: #### 1 023, 7600 #### [facility] [place] [address] Capacity Planner: Curtis Doan MD LIPID PANEL, [facility] [place] 12-2 Cholesterol [Mass/Vol] 123 mg/dL Normal <200 [facility] Comment on above: Order Comment: FASTI NG:NO FASTING: NO Performed By: #### 1 0231, 7600 #### [facility] [address], [address] [place] [address] Capacity Planner: Curtis Doan MD Cholesterol in HDL [Mass/Vol] 29 mg/dL Low > OR = 40 [facility] Comment on above: Order Comment: FASTI NG:NO FASTING: NO Performed By: #### 1 0231, 7600 #### [facility] [address], [address] [place] [address] Capacity Planner: Curtis Doan MD Cholesterol in LDL [Mass/Vol] [...] LDL-C. Noman SS et al. EARNESTINE. 2013;310(19): 0858-0506 (http://education.[employer]/faq/DPR361) Performed By: #### 1 0231, 0 #### [facility] [address], [address] [place] [address] Capacity Planner: Curtis Doan MD Cholesterol.total/Ch olesterol in HDL [Mass ratio] 4.2 {ratio} Normal <5.0 [facility] Comment on above: Order Comment: FASTI NG:NO FASTING: NO Performed By: #### 1 0231, 7600 #### [facility] [address], [address] [place] [address] Capacity Planner: Curtis Doan MD NON HDL CHOLESTEROL 94 mg/dL (calc) Normal <130 [facility] Comment on above: Order Comment: FASTI NG:NO FASTING: NO Result Comment: For patients with diabetes plus 1 major ASCVD risk factor, treating to a non-HDL-C goal of <100 mg/dL (LDL-C of <70 mg/dL) is considered a therapeutic option. Performed By: #### 1 0231, 7600 #### [facility] [address], [address] [place] [address] Capacity Planner: Curtis Doan MD Triglyceride [Mass/Vol] 397 mg/dL High <150 [facility] Comment on above: Order Comment: FASTI NG:NO FASTING: NO Result Comment: If a non-fasting specimen was collected, consider repeat triglyceride testing on a fasting specimen if clinically indicated. Alex et al. J. of Clin. Lipidol. 2015;9:129-169. Performed By: #### 1 0231, 0 #### [facility] [address], [address] [place] [address] Capacity Planner: Curtis Doan MD CBC AUTO DIFFon 05-15-2021 BASO # 0.0 103/ul Normal 0.0-0.1 [facility] Comment on above: Performed By: #### C BC #### [facility] [address] [place] [address] Dr. Diego Covarrubias Basophils/100 WBC (Bld) 0.5 % Normal 0.2-2.0 [facility] Comment on above: Performed By: #### C BC #### [facility] [address] [place] [address] Dr. Diego Covarrubias EO # 0.1 103/ul Normal 0.0-0.7 [facility] Comment on above: Performed By: #### C BC #### [facility] [address] [place] [address] Dr. Diego Covarrubias Eosinophils/100 WBC (Bld) 1.5 % Normal 0.9-7.0 [facility] Comment on above: Performed By: #### C BC #### [facility] [address] [place] [address] Dr. Diego Covarrubias Erythrocyte distribution width (RBC) [Ratio] 12.6 % Normal 11.0-15.0 [facility] Comment on above: Performed By: #### C BC #### [facility] [address] [place] [address] Dr. Diego Covarrubias Hematocrit (Bld) [Volume fraction] 41.9 % Critically low 42.0-54.0 [facility] Comment on above: Performed By: #### C BC #### [facility] [address] [place] [address] Dr. Diego Covarrubias Hemoglobin (Bld) [Mass/Vol] 14.2 g/dL Normal 14.0-18.0 [facility] Comment on above: Performed By: #### C BC #### [facility] [address] [place] [address] Dr. Diego Covarrubias IG # 0.03 10e3/ul Normal 0.00-0.03 [facility] Comment on above: Performed By: #### C BC #### [facility] [address] [place] [address] Dr. Diego Covarrubias IG % 0.5 % Normal 0.0-0.5 [facility] Comment on above: Performed By: #### C BC #### [facility] [address] [place] [address] Dr. Diego Covarrubias LYMPH # 2.0 103/ul Normal 1.2-3.8 [facility] Comment on above: Performed By: #### C BC #### [facility] [address] [place] [address] Dr. Diego Covarrubias Lymphocytes/100 WBC (Bld) 32.1 % Normal 20.5-60.0 [facility] Comment on above: Performed By: #### C BC #### [facility] [address] [place] [address] Dr. Diego Covarrubias MANUAL DIFF REQ NO Normal [facility] Comment on above: Performed By: #### C BC #### [facility] [address] [place] [address] Dr. Diego Covarrubias MCH (RBC) [Entitic mass] 31.5 pg Normal 25.9-34.0 [facility] Comment on above: Performed By: #### C BC #### [facility] [address] [place] [address] Dr. Diego Covarrubias MCHC (RBC) [Mass/Vol] 33.9 g/dL Normal 29.9-35.2 [facility] Comment on above: Performed By: #### C BC #### [facility] [address] [place] [address] Dr. Diego Covarrubias MCV (RBC) [Entitic vol] 92.9 fL Normal 80.0-94.0 [facility] Comment on above: Performed By: #### C BC #### [facility] [address] [place] [address] Dr. Diego Covarrubias MONO # 0.8 103/ul Normal 0.3-0.8 [facility] Comment on above: Performed By: #### C BC #### [facility] [address] [place] [address] Dr. Diego Covarrubias Monocytes/100 WBC (Bld) 13.5 % Critically high 1.7-12.0 [facility] Comment on above: Performed By: #### C BC #### [facility] [address] [place] [address] Dr. Diego Covarrubias NEUT # 3.2 103/ul Normal 1.4-6.5 [facility] Comment on above: Performed By: #### C BC #### [facility] [address] [place] [address] Dr. Diego Covarrubias Neutrophils/100 WBC (Bld) 51.9 % Normal 43.0-75.0 [facility] Comment on above: Performed By: #### C BC #### [facility] [address] [place] [address] Dr. Diego Covarrubias Platelet mean volume (Bld) [Entitic vol] 9.6 fL Normal 9.5-13.5 [facility] Comment on above: Performed By: #### C BC #### [facility] [address] [place] [address] Dr. Diego Covarrubias PLT 244 103/ul Normal 150-450 [facility] Comment on above: Performed By: #### C BC #### [facility] [address] [place] [address] Dr. Diego Covarrubias RBC 4.51 106/ul Critically low 4.70-6.10 [facility] Comment on above: Performed By: #### C BC #### [facility] [address] [place], [place] [address] Dr. Diego Covarrubias WBC 6.2 103/ul Normal 4.0-11.0 [facility] Comment on above: Performed By: #### C BC #### [facility] [address] [place], [place] [address] SINUS WO CONTRASTon 11-23 CT SINUS WO CONTRAST t Name: JORGITO JOVEL STUDY:CT SINUS WO CONTRAST; 11/23/2017 4:50 pm INDICATION:Signs/Sympt oms: left sided sinus pressure/pain, left frontal headache. [...] floor fracture which is probablychronic. Clinical correlation recommended.Electronic ally signed by: JORGITO FREITAS, Normal [facility] Initial Visit (Otolaryngolog y)on 11-21-2017 Initial Visit (Otolaryngology) Chief ComplaintThirebeca is a new patient that is here for possible deviated septum History of Present IllnessMar Med is here for a new patient consultation for his chronic sinus infections. He was referred by Dr. Garcia at [facility]. Pt reports repeat sinus infections. [...] BusPIRone HCl - 15 MG Oral Tablet;Therapy: [id number] to Recorded Dispense: 0 Days ; #: Sufficient Tablet; Refill: 0; ELENITA = N; Record; Last Updated By: Amisha Matias; 11/09/2017 1:27:18 PM Vitals Vital Signs Recorded: 09Nov2017 01:80JWQheghc8 ft 7 nwCpyive505 lb BMI Yljcxztspx72.75BSA Calculated2.19 Physical ExamPhysical Examination:A detailed examination of [...] concerned about his sinuses. ProcedureNASAL ENDOSCOPY (CPT 43651):To better evaluate the patient's symptoms sinonasal endoscopy is indicated. After discussion of risks and benefits and after adequate topical decongestion and topical anesthesia, an endoscope was used to perform nasal endoscopy on each side. A timeout identifying the patient, the procedure, in the location of the procedure was performed. Any patient concerns were addressed prior to beginning the procedure.FINDINGS:ADONIS AL ENDOSCOPY: R: no bleeding or custing evidence. [...] CT Sinus without Contrast; Status:Active; Requested for:23Nov2017; Perform:[facility];Ordered; For:Chronic sinusitis; Ordered By:Christina Apodaca;Reason: Unspecified for CT Sinus without ContrastRadiologist to Determine Optimal Study : YRequesting physician's phone/pager number? : [phone] Alerts (ie: MRSA, TB, Diabetic) : diabeticWhat are the patient's signs and symptoms? : left sided sinus pressure/pain, left frontal headache Provider Impressions1. Subtotal nasal perforation2. Chronic rhinosinusitis symptomsDiscussion:Stacy balderrama and I had a long discussion with [...] MedsBusPIRone HCl - 15 MG Oral Tablet;Therapy: [id number] to Recorded Signatures Electronically signed by : Christina Apodaca MD; Nov 21 2017 7:37AM EST (Author) [facility] Vital Signs Date Time Vital Sign Value Performing Clinician Facility 07-27-2024 11:22-0500 Body height 166.1 cm Shahbaz [employer]ides[employer] Work Phone: [facility] 07-27-2024 11:22-0500 Body mass index (BMI) [Ratio] 37.12 kg/m2 [facility] 07-27-2024 11:22-0500 Body temperature 98.1 [degF] Shahbaz [employer]ides[employer] Work Phone: [facility] 07-27-2024 11:22-0500 Body weight 102.42 kg [employer] Work Phone: [facility] 07-27-2024 11:22-0500 Diastolic blood pressure 84 mm[Hg] [facility] [facility] 07-27-2024 11:22-0500 Heart rate 112 /min [employer] Work Phone: [facility] 07-27-2024 11:22-0500 Respiratory rate 18 /min [employer] Work Phone: [facility] 07-27-2024 11:22-0500 SaO2% (BldA) [Mass fraction] 98 % [employer] [facility] 07-27-2024 11:22-0500 Systolic blood pressure 118 mm[Hg] Sahhbaz Furlong DO Work Phone: [facility] [employer] [facility] 05-24-2024 09:09-0500 Blood Pressure Location Kiarra Galea [facility] 05-24-2024 09:09-0500 Diastolic blood pressure 88 mm[Hg] Kiarra Galea [facility] 05-24-2024 09:09-0500 Heart rate 76 /min Kiarra Galea [facility] 05-24-2024 09:09-0500 Systolic blood pressure 138 mm[Hg] Kiarra Galea [facility] 04-03-2024 16:38-0400 Body height 165.1 cm Shahbaz Furlong DO Work Phone: [facility] [employer] [facility] 04-03-2024 16:38-0400 Body mass index (BMI) [Ratio] 36.94 kg/m2 Shahbaz Furlong DO Work Phone: [facility] [employer] [facility] 04-03-2024 16:38-0400 Body temperature 98.1 [degF] Shahbaz Furlong DO Work Phone: [facility] [employer] [facility] 04-03-2024 16:38-0400 Body weight 100.7 kg Shahbaz Furlong DO Work Phone: [facility] [employer] [facility] 04-03-2024 16:38-0400 Diastolic blood pressure 68 mm[Hg] Shahbaz Furlong DO Work Phone: [facility] [employer] [facility] 04-03-2024 16:38-0400 Heart rate 83 /min Shahbaz Furlong DO Work Phone: [facility] [employer] [facility] 04-03-2024 16:38-0400 Respiratory rate 18 /min Shahbaz Furlong DO Work Phone: [facility] [employer] [facility] 04-03-2024 16:38-0400 SaO2% (BldA) [Mass fraction] 97 % Shahbaz Furlong DO Work Phone: [facility] [employer] [facility] 04-03-2024 16:38-0400 Systolic blood pressure 110 mm[Hg] Shahbaz Furlong DO Work Phone: [facility] 03-01-2024 15:10-0400 Blood Pressure Location Kiarra Galea [facility] 03-01-2024 15:10-0400 Body temperature 98.6 [degF] Kiarra Galea [facility] 03-01-2024 15:10-0400 Diastolic blood pressure 85 mm[Hg] Kiarra Galea [facility] 03-01-2024 15:10-0400 Heart rate 69 /min Kiarra Galea [facility] 03-01-2024 15:10-0400 Respiratory rate 17 /min Kiarra Galea [facility] 03-01-2024 15:10-0400 Systolic blood pressure 121 mm[Hg] Kiarra Galea [facility] 02-23-2024 10:08-0400 Blood Pressure Location Kiarra Galea [facility] 02-23-2024 10:08-0400 Diastolic blood pressure 88 mm[Hg] Kiarra Galea [facility] 02-23-2024 10:08-0400 Heart rate 82 /min Kiarra Min [facility] 02-23-2024 10:08-0400 Systolic blood pressure 134 mm[Hg] Kiarra Chungea [facility] 01-19-2024 15:25-0400 Body height 165.1 cm Jorge Gibbs BUSINESS CONTINUITY ANALYST-MAIL COURIER Work Phone: [facility] [employer] [facility] 01-19-2024 15:25-0400 Body mass index (BMI) [Ratio] 37.67 kg/m2 Jorge Christopher BUSINESS CONTINUITY ANALYST-MAIL COURIER Work Phone: [facility] [employer] [facility] 01-19-2024 15:25-0400 Body temperature 98.01 [degF] Jorgeany Gibbs BUSINESS CONTINUITY ANALYST-MAIL COURIER Work Phone: [facility] [employer] [facility] 01-19-2024 15:25-0400 Body weight 102.69 kg Jorge Gibbs BUSINESS CONTINUITY ANALYST-MAIL COURIER [facility] 01-19-2024 15:25-0400 Diastolic blood pressure 70 mm[Hg] Jorge Gibbs BUSINESS CONTINUITY ANALYST-MAIL COURIER [facility] 01-19-2024 15:25-0400 Heart rate 112 /min Jorge Gibbs BUSINESS CONTINUITY ANALYST-MAIL COURIER Work Phone: [facility] [employer] [facility] 01-19-2024 15:25-0400 SaO2% (BldA) [Mass fraction] 97 % Jorgeany Gibbs BUSINESS CONTINUITY ANALYST-MAIL COURIER [facility] 01-19-2024 15:25-0400 Systolic blood pressure 124 mm[Hg] Jorge Gibbs BUSINESS CONTINUITY ANALYST-MAIL COURIER [facility] 01-02-2024 16:09-0400 Body height 165.1 cm Shahbaz Mancini DO [facility] 01-02-2024 16:09-0400 Body mass index (BMI) [Ratio] 38.31 kg/m2 Shahbaz Furlong DO Work Phone: [facility] [employer] [facility] 01-02-2024 16:09-0400 Body temperature 98.4 [degF] Shahbaz Furlong DO Work Phone: [facility] [employer] 01-02-2024 16:09-0400 Body weight 104.42 kg Shahbaz Furlong DO Work Phone: [facility] [employer] [facility] 01-02-2024 16:09-0400 Diastolic blood pressure 80 mm[Hg] Shahbaz Furlong DO Work Phone: [facility] [employer] 01-02-2024 16:09-0400 Heart rate 95 /min Shahbaz Furlong DO Work Phone: [facility] [employer] 01-02-2024 16:09-0400 SaO2% (BldA) [Mass fraction] 98 % Shahbaz Furlong DO Work Phone: [facility] [employer] 01-02-2024 16:09-0400 Systolic blood pressure 120 mm[Hg] Shahbaz Furlong DO Work Phone: [facility] [employer] [facility] 10-10-2023 16:11-0400 Body height 165.1 cm Josie Grande APRN-SPECIAL NEEDS CAREGIVER Work Phone: [facility] [employer] 10-10-2023 16:11-0400 Body mass index (BMI) [Ratio] 39.8 kg/m2 Josie Grande APRN-SPECIAL NEEDS CAREGIVER Work Phone: [facility] [employer] [facility] 10-10-2023 16:11-0400 Body temperature 98.1 [degF] Josie Grande APRN-SPECIAL NEEDS CAREGIVER Work Phone: [facility] 10-10-2023 16:11-0400 Body weight 108.5 kg Josie Grande APRN-SPECIAL NEEDS CAREGIVER Work Phone: [facility] 10-10-2023 16:11-0400 Diastolic blood pressure 80 mm[Hg] Josie Grande BUSINESS CONTINUITY ANALYST-SPECIAL NEEDS CAREGIVER Work Phone: [facility] [employer] [facility] 10-10-2023 16:11-0400 Heart rate 100 /min Josie Grande APRN-SPECIAL NEEDS CAREGIVER Work Phone: [facility] [employer] [facility] 10-10-2023 16:11-0400 Respiratory rate 18 /min Josie Grande BUSINESS CONTINUITY ANALYST-SPECIAL NEEDS CAREGIVER Work Phone: [facility] [employer] [facility] 10-10-2023 16:11-0400 SaO2% (BldA) [Mass fraction] 96 % Josie Grande BUSINESS CONTINUITY ANALYST-SPECIAL NEEDS CAREGIVER Work Phone: [facility] [employer] [facility] 10-10-2023 16:11-0400 Systolic blood pressure 110 mm[Hg] Josie Grande APRN-SPECIAL NEEDS CAREGIVER Work Phone: [facility] [employer] [facility] 08-30-2023 15:51-0400 Body height 165.1 cm Josie Grande APRN-SPECIAL NEEDS CAREGIVER Work Phone: [facility] [employer] [facility] 08-30-2023 15:51-0400 Body mass index (BMI) [Ratio] 40 kg/m2 Josie Grande APRN-SPECIAL NEEDS CAREGIVER Work Phone: [facility] [employer] [facility] 08-30-2023 15:51-0400 Body temperature 98.1 [degF] Josie Grande APRN-SPECIAL NEEDS CAREGIVER Work Phone: [facility] [employer] [facility] 08-30-2023 15:51-0400 Body weight 109.05 kg Josie Grande BUSINESS CONTINUITY ANALYST-SPECIAL NEEDS CAREGIVER Work Phone: [facility] [employer] [facility] 08-30-2023 15:51-0400 Diastolic blood pressure 70 mm[Hg] Josie Grande APRN-SPECIAL NEEDS CAREGIVER Work Phone: [facility] [employer] [facility] 08-30-2023 15:51-0400 Heart rate 107 /min Josie Garnde APRN-SPECIAL NEEDS CAREGIVER Work Phone: [facility] [employer] [facility] 08-30-2023 15:51-0400 Respiratory rate 18 /min Josie CANOP [facility] 08-30-2023 15:51-0400 SaO2% (BldA) [Mass fraction] 98 % Josie HANDSPECIAL NEEDS CAREGIVER Work Phone: [facility] 08-30-2023 15:51-0400 Systolic blood pressure 120 mm[Hg] Josie CANOP Work Phone: [facility] [employer] 08-04-2023 14:27-0500 Body height 165.1 cm Shahbaz Furlong DO [facility] 08-04-2023 14:27-0500 Body mass index (BMI) [Ratio] 40.25 kg/m2 Shahbaz Furlong DO Work [facility] 08-04-2023 14:27-0500 Body temperature 98.6 [degF] Shahbaz Furlong DO Work [facility] 08-04-2023 14:27-0500 Body weight 109.72 kg Shahbaz Furlong DO Work [facility] 08-04-2023 14:27-0500 Diastolic blood pressure 68 mm[Hg] Hsahbaz Furlong DO Work [facility] 08-04-2023 14:27-0500 Heart rate 100 /min Shahbaz Furlong DO Work Phone: [facility] [employer] 08-04-2023 14:27-0500 SaO2% (BldA) [Mass fraction] 97 % Shahbaz Furlong DO Work [facility] 08-04-2023 14:27-0500 Systolic blood pressure 110 mm[Hg] Shahbaz Furlong DO Work [facility] 06-21-2023 16:30-0500 Body height 165.1 cm Josie Kuns BUSINESS CONTINUITY ANALYST-SPECIAL NEEDS CAREGIVER Work Phone: [employer] 06-21-2023 16:30-0500 Body mass index (BMI) [Ratio] 39.51 kg/m2 Josie Grande APRN-SPECIAL NEEDS CAREGIVER [facility] 06-21-2023 16:30-0500 Body temperature 98.29 [degF] Josie Grande APRN-SPECIAL NEEDS CAREGIVER [facility] 06-21-2023 16:30-0500 Body weight 107.68 kg Josie Grande APRN-SPECIAL NEEDS CAREGIVER [facility] 06-21-2023 16:30-0500 Diastolic blood pressure 66 mm[Hg] Josie Grande APRN-SPECIAL NEEDS CAREGIVER [facility] 06-21-2023 16:30-0500 Heart rate 98 /min Josie HANDSPECIAL NEEDS CAREGIVER Work Phone[facility] 06-21-2023 16:30-0500 SaO2% (BldA) [Mass fraction] 95 % Josie Grande APRN-SPECIAL NEEDS CAREGIVER [facility] 06-21-2023 16:30-0500 Systolic blood pressure 102 mm[Hg] Josie Grande APRN-SPECIAL NEEDS CAREGIVER Work Phone: [facility] 06-16-2021 11:30-0500 Body height 167.64 cm Kendy Patino Other [employer] Other 06-16-2021 11:30-0500 Body mass index (BMI) [Ratio] 36.31 kg/m2 Kendy Patino Other [employer] Other 06-16-2021 11:30-0500 Body temperature 98.6 [degF] Kendy Patino Other [employer] Other 06-16-2021 11:30-0500 Body weight 102.06 kg Kendy Patino Other [employer] Other 06-16-2021 11:30-0500 Respiratory rate 20 /min Kendy Patino Other [employer] Other 06-16-2021 11:30-0500 SaO2% (BldA) [Mass fraction] 98 % Kendy Patino Other [employer] Other Encounters Encounter Date Encounter Type Care Provider Facility Start: 10-04-2024 ambulatory Kiarra Min Facility :[facility] Start: 08-27-2024 End: 08-27-2024 [facility]ill [facility] Start: 08-20-2024 End: 08-20-2024 ambulatory [facility] Start: 08-11-2024 End: 08-11-2024 Orders Only Shahbaz Mancini DO Work Phone: [facility] Comment on above: Lumbar disc prolapse with compression radiculopathy (Primary Dx) Start: 08-08-2024 End: 08-08-2024 Refill Shahbaz Mancini DO Work Phone: [facility] Comment on above: Spondylolisthesis, l umbar region Start: 07-27-2024 End: 07-27-2024 Office outpatient visit 15 minutes Shahbaz Mancini DO Work Phone: [facility] Comment on above: Lumbar disc prolapse with compression radiculopathy (Primary Dx) Start: 07-27-2024 End: 07-27-2024 [facility] Start: 06-26-2024 End: 06-27-2024 [facility] Start: 05-31-2024 End: 05-31-2024 ambulatory [facility] Start: 05-28-2024 End: 05-28-2024 ambulatory [facility] Start: 05-28-2024 Encounter for genera l adult medical examination without abnormal findings JOSIE GRANDE [facility] Start: 05-28-2024 End: 05-28-2024 ambulatory [facility] Start: 05-28-2024 Encounter for genera l adult medical examination without abnormal findings [facility] Start: 05-24-2024 End: 05-24-2024 ambulatory Kiarra Stalin Chungea Facility:[facility] Start: 05-24-2024 End: 05-24-2024 Lab Drop off Kiarra Stalin Chungea [facility] Start: 05-24-2024 End: 05-24-2024 ambulatory Kiarra J Galea Facility:[facility] Start: 05-24-2024 End: 05-24-2024 Patient encounter procedure Kiarra Stalin Chungea [facility] Start: 04-29-2024 End: 04-29-2024 Refill Shahbaz Mancini DO Work Phone: [facility] Comment on above: Urinary urgency Start: 04-03-2024 End: 04-03-2024 Office outpatient visit 25 minutes Shahbaz Mancini DO Work Phone: [facility] Comment on above: Lumbar disc prolapse with compression radiculopathy (Primary Dx); Class 2 severe obesity due to excess calories with serious comorbidity and body mass index (BMI) of 36.0 to 36.9 in adult ([facility]); Essential hypertension; Other fatigue Start: 04-03-2024 End: 04-03-2024 ambulatory [facility] Start: 03-01-2024 End: 03-01-2024 ambulatory Kiarra J Galea Facility:[facility] Start: 03-01-2024 End: 03-01-2024 Patient encounter procedure Kiarra Stalin Galea [facility] Start: 02-23-2024 End: 02-23-2024 ambulatory Kiarra J Galea Facility:[facility] Start: 02-23-2024 End: 02-23-2024 Lab Drop off Kiarra J Galea [facility] Start: 02-23-2024 End: 02-23-2024 ambulatory Kiarra J [place]alea [facility] Start: 02-23-2024 End: 02-23-2024 Patient encounter procedure Kiarra J Galea [facility] Start: 02-16-2024 End: 02-17-2024 Refill Kaila Beck CMA [facility] Comment on above: Lumbar disc prolapse with compression radiculopathy Start: 02-09-2024 End: 02-09-2024 Refill Shahbaz Mancini DO Work Phone: [facility] Comment on above: Spondylolisthesis, l umbar region Start: 01-25-2024 ambulatory Kiarra Galea Facility:[facility] Start: 01-20-2024 End: 01-20-2024 Orders Only Jorge Gibbs BUSINESS CONTINUITY ANALYST-MAIL COURIER Work Phone: [facility] Comment on above: Right ureteral stone (Primary Dx) Start: 01-19-2024 End: 01-19-2024 Office outpatient visit 15 minutes Jorge Gibbs BUSINESS CONTINUITY ANALYST-MAIL COURIER Work Phone: [facility] Comment on above: Right ureteral stone (Primary Dx); Fatty liver Start: 01-19-2024 End: 01-19-2024 ambulatory JORGE L [facility] Start: 01-02-2024 End: 01-02-2024 Office outpatient visit 25 minutes Shahbaz Mancini DO Work Phone: [facility] Comment on above: Lumbar disc prolapse with compression radiculopathy (Primary Dx); Class 2 severe obesity due to excess calories with serious comorbidity and body mass index (BMI) of 39.0 to 39.9 in adult ([facility] Lipoma, unspecified site Start: 01-02-2024 End: 01-02-2024 [facility] Start: 11-08-2023 End: 11-10-2023 Telephone encounter Jennyfer Morse CMA [facility] Comment on above: Med Refill Start: 10-30-2023 End: 10-30-2023 Refill Shahbazrajat Arthurnicolasleon DO Work Phone: [facility] Comment on above: Essential (primary) hypertension; Urinary urgency Start: 10-10-2023 End: 10-10-2023 Office outpatient visit 15 minutes Josie Guzmán Veronica YIP-SPECIAL NEEDS CAREGIVER [facility] Comment on above: Morbid obesity ([facility]) (Primary Dx); Abdominal bloating Start: 10-10-2023 End: 10-10-2023 ambulatory BARRETT [facility] Start: 09-12-2023 Orders Only Shahbaz quintero DO [facility] Start: 08-31-2023 Orders Only Josie Grande BUSINESS CONTINUITY ANALYST-SPECIAL NEEDS CAREGIVER Work Phone: [facility] Comment on above: Hypomagnesemia (Prim yudy Dx) Start: 08-30-2023 End: 08-30-2023 ambulatory [facility] Start: 08-30-2023 End: 08-30-2023 Office outpatient visit 25 minutes Josie Grande BUSINESS CONTINUITY ANALYST-SPECIAL NEEDS CAREGIVER Work Phone: [facility] Comment on above: Acute kidney injury (nontraumatic) ([facility]) (Primary Dx); Hypomagnesemia; Essential hypertension; Morbid obesity ([facility] Start: 08-30-2023 End: 08-30-2023 ambulatory [facility] Start: 08-13-2023 Refill Shahbaz Alfonso ng DO Work Phone: [facility] Comment on above: Essential (primary) hypertension Start: 08-12-2023 Refill Shahbaz Alfonso ng DO Work Phone: [facility] Comment on above: Urinary urgency Start: 08-04-2023 End: 08-04-2023 Office outpatient visit 25 minutes Shahbza Mancini DO Work Phone: [facility] Comment on above: Morbid obesity ([facility]) (Primary Dx); Lumbar disc prolapse with compression radiculopathy; Left lateral epicondylitis; Essential hypertension; Spondylolisthesis, lumbar region; Pre-diabetes Start: 08-04-2023 End: 08-04-2023 ambulatory [facility] Start: 07-28-2023 Refill Shahbaz Alfonso ng DO Work Phone: [facility] Comment on above: Urinary urgency Start: 07-08-2023 Refill Kaila Beck [facility] Comment on above: Essential (primary) hypertension Start: 07-04-2023 Telephone encounter Shahbaz menjivar DO Work Phone: [facility] Start: 06-21-2023 End: 06-21-2023 Office outpatient visit 15 minutes Josie Grande BUSINESS CONTINUITY ANALYST-SPECIAL NEEDS CAREGIVER [facility]: [facility] Comment on above: Lateral epicondyliti s of left elbow (Primary Dx) Start: 12-03-2021 End: 12-04-[address] SHAHBAZ MANCINI Facility:[facility] Start: 06-16-2021 End: 06-16-2021 ambulatory Kendy Patino Other [facility] [employer] Other Start: 06-16-2021 Office outpatient vi sit 15 minutes Kendy Patino [facility] Start: 05-21-2021 Encounter for preprocedural cardiovascular examination DR DOCTOR NGUYEN [facility] Start: 05-21-2021 Encounter for preprocedural laboratory examination DR DOCTOR NGUYEN [facility] Start: 05-15-2021 End: 05-16-[address] DOCTOR NGUYEN Facility:[facility] Start: 05-15-2021 End: 05-16-2021 Encounter for preprocedural laboratory examination DR DOCTOR NGUYEN Facility:[facility] Start: 02-19-2021 End: 02-19-[address] SHAHBAZ MANCINI Facility:[facility] Start: 11-23-2017 Ambulatory Christina Apodaca Fac ility:[facility] Start: 11-09-2017 Ambulatory Christina Apodaca Fac ility:[id number] Procedures Date Procedure Procedure Detail Performing Clinician Start: 05-28-2024 Adult depression scr eening assessment Kaila Beck CMA Start: 04-03-2024 Adult depression scr eening assessment Shahbaz Furlong DO Work Phone: Start: 01-02-2024 Adult depression scr eening assessment Shahbaz Furlong DO Work Phone: Start: 10-10-2023 Adult depression scr eening assessment Josie Grande BUSINESS CONTINUITY ANALYST-SPECIAL NEEDS CAREGIVER Work Phone: Start: 08-30-2023 Follow-up visit Follow-up JOSIE GRANDE Start: 08-30-2023 Adult depression scr eening assessment Josie Grande BUSINESS CONTINUITY ANALYST-SPECIAL NEEDS CAREGIVER Work Phone: Start: 08-04-2023 Adult depression scr eening assessment Shahbaz Furlong DO Work Phone: Start: 06-21-2023 Adult depression scr eening assessment Josie Grande BUSINESS CONTINUITY ANALYST-SPECIAL NEEDS CAREGIVER Work Phone: Start: 11-25-2014 Total replacement of left hip joint Kiarra Min Plan of Treatment Date Care Activity Detail Author Start: 02-11-2030 DTaP,Tdap and Td Vac cines (3 - Td or Tdap) DTaP,Tdap and Td Vaccines (3 - Td or Tdap) [facility] Start: 07-27-2025 Adult BMI Screening Adult BMI Screen ing [facility] Start: 07-27-2025 Tobacco Screening Tobacco Screening [facility] Start: 05-28-2025 Adult BMI Screening Adult BMI Screen ing [facility] Start: 05-28-2025 Depression Screening Depression Scre ening [facility] Start: 05-28-2025 Tobacco Screening Tobacco Screening [facility] Start: 04-03-2025 Adult BMI Screening Adult BMI Screen ing [facility] Start: 04-03-2025 Depression Screening Depression Scre ening [facility] Start: 04-03-2025 Tobacco Screening Tobacco Screening [facility] Start: 01-18-2025 Adult BMI Screening Adult BMI Screen ing [facility] Start: 01-18-2025 Tobacco Screening Tobacco Screening [facility] Start: 01-01-2025 Adult BMI Screening Adult BMI Screen ing [facility] Start: 01-01-2025 Depression Screening Depression Scre ening [facility] Start: 01-01-2025 Tobacco Screening Tobacco Screening [facility] Start: 10-09-2024 Adult BMI Screening Adult BMI Screen ing [facility] Start: 10-09-2024 Depression Screening Depression Scre ening [facility] Start: 10-09-2024 Tobacco Screening Tobacco Screening [facility] Start: 09-13-2024 End: 09-13-2024 Patient encounter procedure 09/13/2024 4:15 PM EDT Office Visit [facility] [address] [place] [address] Shahbaz Mancini, [address], [place] [address] [facility] Start: 08-29-2024 Adult BMI Screening Adult BMI Screen ing [facility] Start: 08-29-2024 Depression Screening Depression Scre ening [facility] Start: 08-29-2024 Tobacco Screening Tobacco Screening [facility] Start: 08-28-2024 End: 08-28-2024 Patient encounter procedure 08/28/2024 3:30 PM EDT Office Visit [facility] [address] [place] [address] Shahbaz Mancini DO [address], [place] [address] [facility] Start: 08-28-2024 Screening for malign ant neoplasm of colon Colon Cancer Screening 3 Year Cologuard [facility] Start: 08-04-2024 Adult BMI Screening Adult BMI Screen ing [facility] Start: 08-04-2024 Depression Screening Depression Scre ening [facility] Start: 08-04-2024 Tobacco Screening Tobacco Screening [facility] Start: 06-21-2024 Adult BMI Screening Adult BMI Screen ing [facility] Start: 06-21-2024 Depression Screening Depression Scre ening [facility] Start: 06-21-2024 Tobacco Screening Tobacco Screening [facility] Start: 05-28-2024 End: 05-28-2024 Patient encounter procedure 05/28/2024 2:30 PM EST Office Visit [facility] [address] [place] [address] Shahbaz Mancini DO [address], [place] [address] [facility] Start: 04-03-2024 End: 04-03-2024 Patient encounter procedure 04/03/2024 4:30 PM EDT Office Visit [facility] [address] [place] [address] Shahbaz Mancini, DO [address], [place] [address] [facility] Start: 02-12-2024 Influenza vaccination Influenza Vacc ine [facility] Start: 01-02-2024 End: 01-02-2024 Patient encounter procedure 01/02/2024 4:15 PM EDT Office Visit [facility] Family [facility] [address] [place] [address] Shahbaz Mancini, [address], [place] [address] [facility] Internal Medicine - Family [facility] Start: 11-03-2023 End: 11-03-2023 Patient encounter procedure 11/03/2023 4:10 PM EDT Office Visit [facility] [address] [place] [address] Shahbaz Mancini, [address], [place] [address] [facility] Internal [facility] - Family [facility] Start: 10-10-2023 End: 10-10-2023 Patient encounter procedure 10/10/2023 4:00 PM EDT Office Visit [facility] [address] [place] [address] Josie Grande APRN-SPECIAL NEEDS CAREGIVER [address] [facility] [place] [address] [facility] Start: 09-11-2023 Influenza vaccination Influenza Vacc ine [facility] Comment on above: Postponed from 02/11 (Patient Refused) Start: 08-04-2023 End: 08-04-2023 Patient encounter procedure 08/04/2023 2:20 PM EST [facility] [address] [place] [address] Shahbaz Mancini DO [address], [place] [address] [facility] Start: 2023 Administration of varicella zoster vaccine Zoster (Shingles) Vaccine (1 of 2) [facility] Start: 02-11-2023 Influenza vaccination Influenza Vacc ine [facility] Start: 1991 Adult BMI Follow Up Plan Adult BMI Follow Up Plan [facility] Immunizations Immunization Date Immunization Notes Care Provider Fa cility 02-12-2020 diphtheria, tetanus toxoids and pertussis vaccine Josie Grande BUSINESS CONTINUITY ANALYST-SPECIAL NEEDS CAREGIVER Work Phone: [facility] 02-12-2020 tetanus toxoid, redu jackson diphtheria toxoid, and acellular pertussis vaccine, adsorbed Josie Grande BUSINESS CONTINUITY ANALYST-SPECIAL NEEDS CAREGIVER Work Phone: [facility] 02-03-2018 hepatitis B vaccine, adult dosage Josie Grande BUSINESS CONTINUITY ANALYST-SPECIAL NEEDS CAREGIVER Work Phone: [facility] 09-07-2017 hepatitis B vaccine, adult dosage Josie Grande BUSINESS CONTINUITY ANALYST-SPECIAL NEEDS CAREGIVER Work Phone: [facility] 08-04-2017 hepatitis B vaccine, pediatric or pediatric/adolescent dosage Josie Grande BUSINESS CONTINUITY ANALYST-SPECIAL NEEDS CAREGIVER Work Phone: [facility] Payers Date Payer Category Payer Managed Care, Other (non HMO) [employer] [id number] 2023 Managed Care Other (unspecified) [id number] PLAN [id number] 2023 Private Health Insurance [id number] 2023 Private Health Insurance [id number] 2023 Unknown [id number] 2012 Unknown FRONTPATH BENEFI T ASSISTANCE ERNESTO [id number] 2012-Present [phone] [address] [place] [address] [id number] [id number] 1973 Unknown [id number] 2.16.840.1.816753.3.579. 2.593 1973 Unknown [id number] 2.16.840.1.508317.3.579. 2.593 1973 Unknown [id number] 2.16.840.1.446468.3.579. 2.593 1973 Unknown [id number] 2.16.840.1.068834.3.579. 2.727 1973 Unknown [id number] 2.16.840.1.937703.3.579. 2.727 1973 Unknown [id number] 2.16.840.1.821691.3.579. 2.727 1973 Unknown [id number] 2.16.840.1.984555.3.579. 2.1286 1973 Unknown [id number] 2.16.840.1.262092.3.579. 2.1286 1973 Unknown [id number] 2.16.840.1.606713.3.579. 2.1285 1973 Unknown [id number] 2.16.840.1.643477.3.579. 2.1285 1973 Unknown [id number] 2.16.840.1.503991.3.579. 2.1285 1973 Unknown [id number] 2.16.840.1.997654.3.579. 2.1285 1973 Unknown [id number] 2.16.840.1.156357.3.579. 2.1285 1973 Unknown [id number] 2.16.840.1.644748.3.579. 2.1285 1973 Unknown [id number] 2.16.840.1.274016.3.579. 2.128 1973 Unknown [id number] 2.16.840.1.336202.3.579. 2.128 1973 Unknown [id number] 2.16.840.1.190098.3.579. 2.1285 1973 Unknown [id number] 2.16.840.1.584703.3.579. 2.727 1973 Unknown [id number] 2.16.840.1.160815.3.579. 2.727 1973 Unknown [id number] 2.16.840.1.364344.3.579. 2.727 1973 Unknown [id number] 2.16.840.1.096755.3.579. 2.727 1973 Unknown [id number] 2.16.840.1.451845.3.579. 2.196 1959 Unknown [id number] Self-pay Social History Date Type Detail Facility Start: 03-07-2023 End: 05-03-2023 Sex Assigned At [facility] Start: 03-01-2024 End: 05-24-2024 Tobacco smoking status Light tobacco smoker (finding) [facility] Start: 03-07-2023 End: 01-19-2024 Tobacco smoking status Ex-smoker (finding) [facility] Tobacco smoking status Never [facility] Start: 06-13-1989 End: 09-11-2022 History of tobacco use Current smoker [facility] Start: 06-13-1989 End: 09-11-2022 History of tobacco use Cigarette Smoker [facility] Start: 03-07-2023 End: 01-19-2024 Cigarettes smoked current (pack per day) - Reported 0.5 [facility] Start: 03-07-2023 End: 01-19-2024 Tobacco use and exposure Smokeless tobacco non-user [facility] Start: 05-28-2024 End: 07-27-2024 Alcoholic beverage intake Ex-drinker (finding) [facility] Has the [employer], or [employer] threatened to shut off services in your home in past 12Mo No [facility] Are you now , , , , never or living with a partner? [facility] How often to you hav e a drink containing alcohol? 2-4 times a month [facility] How many standard drinks containing alcohol do you have on a typical day? 1 or 2 [facility] How often do you hav e 6 or more drinks on 1 occasion? Never [facility] Do you feel stress - tense, restless, nervous, or anxious, or unable to sleep at night because your mind is troubled all the time - these days [OSQ] Not at all [facility] Start: 03-02-2022 Alcohol Comment Occasional 6 p ack once a month [facility] Start: 1975 Sex assigned at Not on file [facility] Start: 01-16-2015 Sex Male (finding) [facility] Start: 06-21-2023 End: 08-04-2023 Alcohol intake Current drinker of alcohol (finding) [facility] Functional Status Date Assessment Result Facility 05-24-2024 Functional Status N/A [facility] 03-01-2024 Functional Status N/A [facility] 02-23-2024 Functional Status N/A [facility] Clinical Notes 02-19-2021 to 07-27-2024 Shahbaz Mancini, DO - 07/27/2024 11:15 AM ESTTelephone Encounter - Kaila Beck, MATTE CUTTER - 06/26/2024 4:14 PM ESTTelephone Encounter - Shahbaz Mancini, DO - 06/26/2024 4:14 PM EST Note Date & Type Note Facility 07-27-2024 History of Present illness Narrative Images from the original note were not included. Subjective Patient ID: Jorgito Jovel is a 49 y.o. male. Jorgito presents today for a flare-up of his low back pain. He missed the last 3 days of work because of back pain flare up. He couldn't even bend over to tie his shoes. He stayed bed most of the time. He denies urinary incontinence. Pain radiates down to left knee and to right buttocks. He was using Celebrex, tizanidine and oxycodone with mild benefit. It is feeling better today. He would take those medications but not all at once. He would try 1 and then try another. He thinks the oxycodone has been keeping him awake at night. He still has 5 tablets left from the prescription in May. He is not having any other side effects. He saw pain management in the past and had injections but they only help for a few weeks and then the pain returned. Pain is so bad that he is thinking about calling them again and seeing what else they can do. He would like a shot that would numb it up . Back Pain The problem has been gradually improving since onset. The pain is at a severity of 10/10. The pain is severe. The following portions of the patient's history were reviewed and updated as appropriate: allergies, current medications, past family history, past medical history, past social history, past surgical history, problem list, and medication reconciliation was completed including current medication and post discharge medication. Review of Systems Musculoskeletal: Positive for back pain. Objective Physical Exam Vitals reviewed. Exam conducted with a hop trainer present ([employer] MS[employer]). Constitutional: General: He is not in acute distress. Appearance: He is not ill-appearing. HENT: Head: Normocephalic. Pulmonary: Effort: Pulmonary effort is normal. Musculoskeletal: Lumbar back: Spasms and tenderness present. No deformity or bony tenderness. Decreased range of motion. Negative right straight leg raise test and negative left straight leg raise test. No scoliosis. Back: Right lower leg: No edema. Left lower leg: No edema. Comments: Paralumbar musculature tense and tender Neurological: General: No focal deficit present. Mental Status: He is alert. Cranial Nerves: Cranial nerves 2-12 are intact. Gait: Gait abnormal (Slow, antalgic). Deep Tendon Reflexes: Reflex Scores: Patellar reflexes are 2+ on the right side and 2+ on the left side. Achilles reflexes are 1+ on the right side and 1+ on the left side. Psychiatric: Attention and Perception: Attention and perception normal. Mood and Affect: Mood and affect normal. Speech: Speech normal. Behavior: Behavior normal. Behavior is cooperative. Thought Content: Thought content normal. Cognition and Memory: Cognition normal. Judgment: Judgment normal. Assessment/Plan Jorgito was seen today for back pain. Diagnoses and all orders for this visit: Lumbar disc prolapse with compression radiculopathy The oxycodone is keeping him awake. I would suggest switching it to hydrocodone when he needs a refill. Can use the Celebrex and tizanidine together and then even hydrocodone or oxycodone if the pain is severe enough. He should not operate heavy equipment or go to work if he takes the muscle relaxer and opioid. Should do that at home or in the evening so he can get some rest. I encouraged him to call pain management to see what they can do. He is seen them in the past. They may have other options available. Call if worrisome symptoms such as urinary or bowel incontinence or perineal numbness and tingling. Previous MRI was reviewed with the patient. Off work note given for the past 3 days and notification that he was here in the office today. documented in this encounter [facility] 06-26-2024 Miscellaneous Notes Patient came in and was wondering if he can get a refill on the wegovy through [facility] and he would like it increased if he can. Okay. Forms filled out to be faxed in documented in this encounter [facility] 06-26-2024 Telephone encounter Note Patient came in and was wondering if he can get a refill on the wegovy through [facility] and he would like it increased if he can. [facility] 06-26-2024 Telephone encounter Note Okay. Forms filled out to be faxed in [facility] 05-24-2024 Hospital Discharge instructions Patient Education 05/24/2024 10:52:52 Prostate Cancer Screening Prostate Cancer Screening Prostate cancer screening is testing that is done to check for the presence of prostate cancer in men. The prostate gland is a walnut-sized gland that is located below the bladder and in front of the rectum in males. The function of the prostate is to add fluid to semen during ejaculation. Prostate cancer is one of the most common types of cancer in men. Who should have prostate cancer screening? Screening recommendations vary based on age and other risk factors, as well as between the professional organizations who make the recommendations. In general, screening is recommended if: You are age 50 to 70 and have an average risk for prostate cancer. You should talk with your health care provider about your need for screening and how often screening should be done. Because most prostate cancers are slow growing and will not cause , screening in this age group is generally reserved for men who have a 10- to 15-year life expectancy. You are younger than age 50, and you have these risk factors: ?Having a father, brother, or uncle who has been diagnosed with prostate cancer. The risk is higher if your family member's cancer occurred at an early age or if you have multiple family members with prostate cancer at an early age. ?Being a male who is Black or is of [place] or sub-Saharan descent. In general, screening is not recommended if: You are younger than age 40. You are between the ages of 40 and 49 and you have no risk factors. You are 70 years of age or older. At this age, the risks that screening can cause are greater than the benefits that it may provide. If you are at high risk for prostate cancer, your health care provider may recommend that you have screenings more often or that you start screening at a younger age. How is screening for prostate cancer done? The recommended prostate cancer screening test is a blood test called the prostate-specific antigen (PSA) test. PSA is a protein that is made in the prostate. As you age, your prostate naturally produces more PSA. Abnormally high PSA levels may be caused by: Prostate cancer. An enlarged prostate that is not caused by cancer (benign prostatic hyperplasia, or BPH). This condition is very common in older men. A prostate gland infection (prostatitis) or urinary tract infection. Certain medicines such as male hormones (like testosterone) or other medicines that raise testosterone levels. A rectal exam may be done as part of prostate cancer screening to help provide information about the size of your prostate gland. When a rectal exam is performed, it should be done after the PSA level is drawn to avoid any effect on the results. Depending on the PSA results, you may need more tests, such as: A physical exam to check the size of your prostate gland, if not done as part of screening. Blood and imaging tests. A procedure to remove tissue samples from your prostate gland for testing (biopsy). This is the only way to know for certain if you have prostate cancer. What are the benefits of prostate cancer screening? Screening can help to identify cancer at an early stage, before symptoms start and when the cancer can be treated more easily. There is a small chance that screening may lower your risk of dying from prostate cancer. The chance is small because prostate cancer is a slow-growing cancer, and most men with prostate cancer from a different cause. What are the risks of prostate cancer screening? The main risk of prostate cancer screening is diagnosing and treating prostate cancer that would never have caused any symptoms or problems. This is called overdiagnosisand overtreatment. PSA screening cannot tell you if your PSA is high due to cancer or a different cause. A prostate biopsy is the only procedure to diagnose prostate cancer. Even the results of a biopsy may not tell you if your cancer needs to be treated. Slow-growing prostate cancer may not need any treatment other than monitoring, so diagnosing and treating it may cause unnecessary stress or other side effects. Questions to ask your health care provider When should I start prostate cancer screening? What is my risk for prostate cancer? How often do I need screening? What type of screening tests do I need? How do I get my test results? What do my results mean? Do I need treatment? Where to find more information The [place] [employer]: www.cancer.org [place] [employer]: www.auanet.org Contact a health care provider if: You have difficulty urinating. You have pain when you urinate or ejaculate. You have blood in your urine or semen. You have pain in your back or in the area of your prostate. Summary Prostate cancer is a common type of cancer in men. The prostate gland is located below the bladder and in front of the rectum. This gland adds fluid to semen during ejaculation. Prostate cancer screening may identify cancer at an early stage, when the cancer can be treated more easily and is less likely to have spread to other areas of the body. The prostate-specific antigen (PSA) test is the recommended screening test for prostate cancer, but it has associated risks. Discuss the risks and benefits of prostate cancer screening with your health care provider. If you are age 70 or older, the risks that screening can cause are greater than the benefits that it may provide. This information is not intended to replace advice given to you by your health care provider. Make sure you discuss any questions you have with your health care provider. Document Revised: 11/23/2021 Document Reviewed: 11/23/2021 [employer] Patient Education 2023 [employer] App. 05/24/2024 10:52:52 Prostate Cancer Screening Prostate Cancer Screening Prostate cancer screening is testing that is done to check for the presence of prostate cancer in men. The prostate gland is a walnut-sized gland that is located below the bladder and in front of the rectum in males. The function of the prostate is to add fluid to semen during ejaculation. Prostate cancer is one of the most common types of cancer in men. Who should have prostate cancer screening? Screening recommendations vary based on age and other risk factors, as well as between the professional organizations who make the recommendations. In general, screening is recommended if: You are age 50 to 70 and have an average risk for prostate cancer. You should talk with your health care provider about your need for screening and how often screening should be done. Because most prostate cancers are slow growing and will not cause , screening in this age group is generally reserved for men who have a 10- to 15-year life expectancy. You are younger than age 50, and you have these risk factors: ?Having a father, brother, or uncle who has been diagnosed with prostate cancer. The risk is higher if your family member's cancer occurred at an early age or if you have multiple family members with prostate cancer at an early age. ?Being a male who is Black or is of [place] or sub-Saharan descent. In general, screening is not recommended if: You are younger than age 40. You are between the ages of 40 and 49 and you have no risk factors. You are 70 years of age or older. At this age, the risks that screening can cause are greater than the benefits that it may provide. If you are at high risk for prostate cancer, your health care provider may recommend that you have screenings more often or that you start screening at a younger age. How is screening for prostate cancer done? The recommended prostate cancer screening test is a blood test called the prostate-specific antigen (PSA) test. PSA is a protein that is made in the prostate. As you age, your prostate naturally produces more PSA. Abnormally high PSA levels may be caused by: Prostate cancer. An enlarged prostate that is not caused by cancer (benign prostatic hyperplasia, or BPH). This condition is very common in older men. A prostate gland infection (prostatitis) or urinary tract infection. Certain medicines such as male hormones (like testosterone) or other medicines that raise testosterone levels. A rectal exam may be done as part of prostate cancer screening to help provide information about the size of your prostate gland. When a rectal exam is performed, it should be done after the PSA level is drawn to avoid any effect on the results. Depending on the PSA results, you may need more tests, such as: A physical exam to check the size of your prostate gland, if not done as part of screening. Blood and imaging tests. A procedure to remove tissue samples from your prostate gland for testing (biopsy). This is the only way to know for certain if you have prostate cancer. What are the benefits of prostate cancer screening? Screening can help to identify cancer at an early stage, before symptoms start and when the cancer can be treated more easily. There is a small chance that screening may lower your risk of dying from prostate cancer. The chance is small because prostate cancer is a slow-growing cancer, and most men with prostate cancer from a different cause. What are the risks of prostate cancer screening? The main risk of prostate cancer screening is diagnosing and treating prostate cancer that would never have caused any symptoms or problems. This is called overdiagnosisand overtreatment. PSA screening cannot tell you if your PSA is high due to cancer or a different cause. A prostate biopsy is the only procedure to diagnose prostate cancer. Even the results of a biopsy may not tell you if your cancer needs to be treated. Slow-growing prostate cancer may not need any treatment other than monitoring, so diagnosing and treating it may cause unnecessary stress or other side effects. Questions to ask your health care provider When should I start prostate cancer screening? What is my risk for prostate cancer? How often do I need screening? What type of screening tests do I need? How do I get my test results? What do my results mean? Do I need treatment? Where to find more information The [place] [employer]: www.cancer.org [place] [employer]: www.auanet.org Contact a health care provider if: You have difficulty urinating. You have pain when you urinate or ejaculate. You have blood in your urine or semen. You have pain in your back or in the area of your prostate. Summary Prostate cancer is a common type of cancer in men. The prostate gland is located below the bladder and in front of the rectum. This gland adds fluid to semen during ejaculation. Prostate cancer screening may identify cancer at an early stage, when the cancer can be treated more easily and is less likely to have spread to other areas of the body. The prostate-specific antigen (PSA) test is the recommended screening test for prostate cancer, but it has associated risks. Discuss the risks and benefits of prostate cancer screening with your health care provider. If you are age 70 or older, the risks that screening can cause are greater than the benefits that it may provide. This information is not intended to replace advice given to you by your health care provider. Make sure you discuss any questions you have with your health care provider. Document Revised: 11/23/2021 Document Reviewed: 11/23/2021 [employer] Patient Education 2023 [employer] App. 05/24/2024 10:52:36 Benign Prostatic Hyperplasia Benign Prostatic Hyperplasia Benign prostatic hyperplasia (BPH) [...] or symptoms? Symptoms of this condition include: Getting up often during the night to urinate. Needing to urinate frequently during the day. Difficulty starting urine flow. Decrease in size and strength of your urine stream. Leaking (dribbling) after urinating. Inability to pass urine. This needs immediate treatment. Inability to completely empty your bladder. Pain when you pass urine. This is more common if there is also an infection. Urinary tract infection (UTI). How is this diagnosed? This condition is diagnosed based on your medical history, a physical exam, and your symptoms. Tests will also be done, such as: A post-void bladder scan. This measures any amount of urine that may remain in your bladder after you finish urinating. A digital rectal exam. In a rectal exam, your health care provider checks your prostate by putting a lubricated, gloved finger into your rectum to feel the back of your prostate gland. This exam detects the size of your gland and any abnormal lumps or growths. An exam of your urine (urinalysis). A prostate specific antigen (PSA) screening. This is a blood test used to screen for prostate cancer. An ultrasound. This test uses sound waves [...] severity of your condition. Treatment may include: Observation and yearly exams. This may be the only treatment needed if your condition and symptoms are mild. Medicines to relieve your symptoms, including: ?Medicines to shrink the prostate. ?Medicines to relax the muscle of the prostate. Surgery in severe cases. Surgery may include: ?Prostatectomy. In this procedure, the prostate tissue is removed completely through an open incision or with a laparoscope or robotics. ?Transurethral resection of the prostate (TURP). In this procedure, a tool is inserted through the opening at the tip of the penis (urethra). It is used to cut away tissue of the inner core of the prostate. The pieces are removed through the same opening of the penis. This removes the blockage. ?Transurethral incision (TUIP). In this procedure, small cuts are made in the prostate. This lessens the prostate's pressure on the urethra. ?Transurethral microwave thermotherapy (TUMT). This procedure uses microwaves to create heat. The heat destroys and removes a small amount of prostate tissue. ?Transurethral needle ablation (TUNA). This procedure uses radio frequencies to destroy and remove a small amount of prostate tissue. ?Interstitial laser coagulation (ILC). This procedure uses a laser to destroy and remove a small amount of prostate tissue. ?Transurethral electrovaporization (TUVP). This procedure uses electrodes to destroy and remove a small amount of prostate tissue. ?Prostatic urethral lift. This procedure inserts an implant to push the lobes of the prostate away from the urethra. Follow these instructions at home: Take [id number] and prescription medicines only as told by your health care provider. Monitor your symptoms for any changes. Contact your health care provider with any changes. Avoid drinking large amounts of liquid before going to bed or out in public. Avoid or reduce how much caffeine or alcohol you drink. Give yourself time when you urinate. Keep all follow-up visits. This is important. Contact a health care provider if: You have unexplained back pain. Your symptoms do not get better with treatment. You develop side effects from the medicine you are taking. Your urine becomes very dark or has a bad smell. Your lower abdomen becomes distended and you have trouble passing urine. Get help right away if: You have a fever or chills. You suddenly cannot urinate. You feel light-headed or very dizzy, or you faint. There are large amounts of blood or clots in your urine. Your urinary problems become hard to manage. You develop moderate to severe low back or flank pain. The flank is the side of your body between the ribs and the hip. These symptoms may be an emergency. Get help right away. Call 911. Do not wait to see if the symptoms will go away. Do not drive yourself to the hospital. Summary Benign prostatic hyperplasia (BPH) is an enlarged prostate that is caused by the normal aging process. It is not caused by cancer. An enlarged prostate can press on the urethra. This can make it hard to pass urine. This condition is more likely to develop in men older than 50 years. Get help right away if you suddenly cannot urinate. This information is not intended to replace advice given to you by your health care provider. Make sure you discuss any questions you have with your health care provider. Document Revised: 12/16/2021 Document Reviewed: 12/16/2021 [employer] Patient Education 2023 [employer] App. Follow Up Care 02/23/2024 10:39:28 With:Kiarra Christiansen J, URL Address: When: Unknown Comments:F/U 3 months [facility] 05-24-2024 Note Patient Education Prostate Cancer Screening Prostate cancer screening is testing that is done to check for the presence of prostate cancer in men. The prostate gland is a walnut-sized gland that is located below the bladder and in front of the rectum in males. The function of the prostate is to add fluid to semen during ejaculation. Prostate cancer is one of the most common types of cancer in men. Who should have prostate cancer screening? Screening recommendations vary based on age and other risk factors, as well as between the professional organizations who make the recommendations. In general, screening is recommended if: ??? You are age 50 to 70 and have an average risk for prostate cancer. You should talk with your health care provider about your need for screening and how often screening should be done. Because most prostate cancers are slow growing and will not cause , screening in this age group is generally reserved for men who have a 10- to 15-year life expectancy. ??? You are younger than age 50, and you have these risk factors: ? Having a father, brother, or uncle who has been diagnosed with prostate cancer. The risk is higher if your family member's cancer occurred at an early age or if you have multiple family members with prostate cancer at an early age. ? Being a male who is Black or is of [place] or sub-Saharan descent. In general, screening is not recommended if: ??? You are younger than age 40. ??? You are between the ages of 40 and 49 and you have no risk factors. ??? You are 70 years of age or older. At this age, the risks that screening can cause are greater than the benefits that it may provide. If you are at high risk for prostate cancer, your health care provider may recommend that you have screenings more often or that you start screening at a younger age. How is screening for prostate cancer done? The recommended prostate cancer screening test is a blood test called the prostate-specific antigen (PSA) test. PSA is a protein that is made in the prostate. As you age, your prostate naturally produces more PSA. Abnormally high PSA levels may be caused by: ??? Prostate cancer. ??? An enlarged prostate that is not caused by cancer (benign prostatic hyperplasia, or BPH). This condition is very common in older men. ??? A prostate gland infection (prostatitis) or urinary tract infection. ??? Certain medicines such as male hormones (like testosterone) or other medicines that raise testosterone levels. A rectal exam may be done as part of prostate cancer screening to help provide information about the size of your prostate gland. When a rectal exam is performed, it should be done after the PSA level is drawn to avoid any effect on the results. Depending on the PSA results, you may need more tests, such as: ??? A physical exam to check the size of your prostate gland, if not done as part of screening. ??? Blood and imaging tests. ??? A procedure to remove tissue samples from your prostate gland for testing (biopsy). This is the only way to know for certain if you have prostate cancer. What are the benefits of prostate cancer screening? Screening can help to identify cancer at an early stage, before symptoms start and when the cancer can be treated more easily. ??? There is a small chance that screening may lower your risk of dying from prostate cancer. The chance is small because prostate cancer is a slow-growing cancer, and most men with prostate cancer from a different cause. What are the risks of prostate cancer screening? The main risk of prostate cancer screening is diagnosing and treating prostate cancer that would never have caused any symptoms or problems. This is called overdiagnosisand overtreatment. PSA screening cannot tell you if your PSA is high due to cancer or a different cause. A prostate biopsy is the only procedure to diagnose prostate cancer. Even the results of a biopsy may not tell you if your cancer needs to be treated. Slow-growing prostate cancer may not need any treatment other than monitoring, so diagnosing and treating it may cause unnecessary stress or other side effects. Questions to ask your health care provider ??? When should I start prostate cancer screening? What is my risk for prostate cancer? How often do I need screening? What type of screening tests do I need? How do I get my test results? What do my results mean? Do I need treatment? Where to find more information ??? The [place] [employer]: www.cancer.org ??? [place] [employer]: www.auanet.org Contact a health care provider if: ??? You have difficulty urinating. ??? You have pain when you urinate or ejaculate. ??? You have blood in your urine or semen. ??? You have pain in your back or in the area of your prostate. Summary ??? Prostate cancer is a common type of cancer in men. The prostate gland is located (more content not included)... [facility] 04-03-2024 History of Present illness Narrative Subjective Patient ID: Jorgito Jovel is a 49 y.o. male. Lizandro presents today for a controlled substance recheck. He is doing more 12 hour shifts and his back tightens up. He is not using a muscle relaxer currently. He uses hydrocodone prn with benefit. It helps him sleep when he takes it. He is able to work the next day. He only takes it when it gets really bad. He stopped celebrex because he thought the urologist told him to stop while on flomax and toradol. He passed the stone. He did see blood in his urine and they are aware of it. He went back for a urinalysis and it was negative. He is still tired frequently. He said he had a sleep study done years ago at [facility] but it was okay. Part of the problem his he works 12 hour shifts from 3:00 a.m. to 3:00 p.m. Tuesday through Tuesday. His family and kids at home in the evening make it difficult for him to go to bed early and so many times he only gets 4 hours of sleep. He is still using semaglutide and losing weight. He is tolerating it well. He has no side effects. He is on 1.8 mg weekly The following portions of the patient's history were reviewed and updated as appropriate: allergies, current medications, past family history, past medical history, past social history, past surgical history, problem list, and medication reconciliation was completed including current medication and post discharge medication. Review of Systems Objective Physical Exam Constitutional: Appearance: He is obese. Cardiovascular: Rate and Rhythm: Normal rate and regular rhythm. Pulses: Normal pulses. Heart sounds: Normal heart sounds. No murmur heard. Pulmonary: Effort: Pulmonary effort is normal. No respiratory distress. Breath sounds: Normal breath sounds. No wheezing, rhonchi or rales. Musculoskeletal: Cervical back: Neck supple. Lumbar back: Spasms and tenderness present. Neurological: Mental Status: He is alert. Gait: Gait abnormal (Slightly antalgic). Psychiatric: Attention and Perception: Attention normal. Mood and Affect: Mood normal. Speech: Speech normal. Behavior: Behavior normal. Behavior is cooperative. Thought Content: Thought content normal. Cognition and Memory: Cognition normal. Judgment: Judgment normal. Assessment/Plan Jorgito was seen today for controlled. Diagnoses and all orders for this visit: Lumbar disc prolapse with compression radiculopathy He is using hydrocodone p.r.n. with benefit. There was no signs of misuse. He is deriving benefit. It helps him perform ADLs. Going to add tizanidine 4 mg every 6 hours as needed for muscle spasm. He can restart Celebrex 200 mg twice a day. Class 2 severe obesity due to excess calories with serious comorbidity and body mass index (BMI) of 36.0 to 36.9 in adult (CMS-HCC) He is obese. He is using semaglutide with benefit. He is gradually losing weight. He was congratulated on his weight loss and encouraged to continue. Essential hypertension Blood pressure at goal. Weight loss is benefitting his blood pressure. Other fatigue Will try to track down the sleep study done at [facility] to see if he has sleep apnea or not. May benefit from re-evaluating sleep or checking into other causes of fatigue if it was negative. It may be just a lack asleep because of his work and sleep schedule Other orders - tiZANidine (ZANAFLEX) 4 mg tablet; Take 1 tablet (4 mg total) by mouth every 6 (six) hours as needed for muscle spasms. documented in this encounter [facility] 03-01-2024 Hospital Discharge instructions Patient Education 03/01/2024 [...] Follow these instructions at home: Medicines Take saoa-qnj-yxmbwyq and prescription medicines only as told by [...] or the blood stops without treatment. Take jiav-ski-hyftjum and prescription medicines only as told by your health care provider. Drink enough fluid to keep your urine pale yellow. This information is not intended to replace advice given to you by your health care provider. Make sure you discuss any questions you have with your health care provider. Document Revised: 01/28/2021 Document Reviewed: 01/28/2021 [employer] Patient Education 2023 Friendly Wager App. Follow Up Care 02/27/2024 10:53:51 With:Kiarra Christiansen, URL Address: When: Unknown Comments:Appointment has already been scheduled [facility] 03-01-2024 Note Patient Education Urology Hematuria, [...] these instructions at home: Medicines ? Take gawc-mtv-dfqxwyq and prescription medicines only as told by [...] the blood stops without treatment. ? Take woyv-ehe-fyxenrp and prescription medicines only as told by your health care provider. ? Drink enough fluid to keep your urine pale yellow. This information is not intended to replace advice given to you by your health care provider. Make sure you discuss any questions you have with your health care provider. Document Revised: 01/28/2021 Document Reviewed: 01/28/2021 [employer] Patient Education ? 2023 Friendly Wager [employer] [facility] 02-23-2024 Hospital Discharge instructions Patient Education 02/23/2024 11:05:36 Benign Prostatic Hyperplasia Benign Prostatic Hyperplasia Benign prostatic hyperplasia (BPH) [...] or symptoms? Symptoms of this condition include: Getting up often during the night to urinate. Needing to urinate frequently during the day. Difficulty starting urine flow. Decrease in size and strength of your urine stream. Leaking (dribbling) after urinating. Inability to pass urine. This needs immediate treatment. Inability to completely empty your bladder. Pain when you pass urine. This is more common if there is also an infection. Urinary tract infection (UTI). How is this diagnosed? This condition is diagnosed based on your medical history, a physical exam, and your symptoms. Tests will also be done, such as: A post-void bladder scan. This measures any amount of urine that may remain in your bladder after you finish urinating. A digital rectal exam. In a rectal exam, your health care provider checks your prostate by putting a lubricated, gloved finger into your rectum to feel the back of your prostate gland. This exam detects the size of your gland and any abnormal lumps or growths. An exam of your urine (urinalysis). A prostate specific antigen (PSA) screening. This is a blood test used to screen for prostate cancer. An ultrasound. This test uses sound waves [...] severity of your condition. Treatment may include: Observation and yearly exams. This may be the only treatment needed if your condition and symptoms are mild. Medicines to relieve your symptoms, including: ?Medicines to shrink the prostate. ?Medicines to relax the muscle of the prostate. Surgery in severe cases. Surgery may include: ?Prostatectomy. In this procedure, the prostate tissue is removed completely through an open incision or with a laparoscope or robotics. ?Transurethral resection of the prostate (TURP). In this procedure, a tool is inserted through the opening at the tip of the penis (urethra). It is used to cut away tissue of the inner core of the prostate. The pieces are removed through the same opening of the penis. This removes the blockage. ?Transurethral incision (TUIP). In this procedure, small cuts are made in the prostate. This lessens the prostate's pressure on the urethra. ?Transurethral microwave thermotherapy (TUMT). This procedure uses microwaves to create heat. The heat destroys and removes a small amount of prostate tissue. ?Transurethral needle ablation (TUNA). This procedure uses radio frequencies to destroy and remove a small amount of prostate tissue. ?Interstitial laser coagulation (ILC). This procedure uses a laser to destroy and remove a small amount of prostate tissue. ?Transurethral electrovaporization (TUVP). This procedure uses electrodes to destroy and remove a small amount of prostate tissue. ?Prostatic urethral lift. This procedure inserts an implant to push the lobes of the prostate away from the urethra. Follow these instructions at home: Take gsyu-ize-myafogm and prescription medicines only as told by your health care provider. Monitor your symptoms for any changes. Contact your health care provider with any changes. Avoid drinking large amounts of liquid before going to bed or out in public. Avoid or reduce how much caffeine or alcohol you drink. Give yourself time when you urinate. Keep all follow-up visits. This is important. Contact a health care provider if: You have unexplained back pain. Your symptoms do not get better with treatment. You develop side effects from the medicine you are taking. Your urine becomes very dark or has a bad smell. Your lower abdomen becomes distended and you have trouble passing urine. Get help right away if: You have a fever or chills. You suddenly cannot urinate. You feel light-headed or very dizzy, or you faint. There are large amounts of blood or clots in your urine. Your urinary problems become hard to manage. You develop moderate to severe low back or flank pain. The flank is the side of your body between the ribs and the hip. These symptoms may be an emergency. Get help right away. Call 911. Do not wait to see if the symptoms will go away. Do not drive yourself to the hospital. Summary Benign prostatic hyperplasia (BPH) is an enlarged prostate that is caused by the normal aging process. It is not caused by cancer. An enlarged prostate can press on the urethra. This can make it hard to pass urine. This condition is more likely to develop in men older than 50 years. Get help right away if you suddenly cannot urinate. This information is not intended to replace advice given to you by your health care provider. Make sure you discuss any questions you have with your health care provider. Document Revised: 12/16/2021 Document Reviewed: 12/16/2021 [employer] Patient Education 2023 Friendly Wager App. 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 was taking flomax, [...] Skin: No rashes or suspicious lesions Assessment/Plan SUBSTANCE ABUSE COUNSELOR referred by Jorge Gibbs NP for ureteral stone. 01/08/24 - BUN 27, Cre 1.95, GFR 44 (pt had hydro due to ureteral stone at this time), no repeat labs in [facility] 1. History of kidney stones (Z87.442: Personal history of urinary calculi) 01/08/[address] [facility] ER CT w/o con - mild R hydronephrosis due to a 5mm proximal R ureteral stone near the UPJ. No additional upper or lower urinary tract calculi are seen on either side. There are no other acute findings in the abdomen or pelvis 02/16/24 KUB - no appreciable urinary tract calculi Pt went to [facility] ER on 01/08/24 due to [...] drink a lot of water and drinks MtSolvatew. Discussed increasing fluids and adding lemon/duckwater to patient's regimen, pt verbalizes understanding. Briefly discussed metabolic workup with patient should he develop another stone. -Increase fluids, avoid bladder irritants -Add lemon/duckwater, lemonade to fluid intake -Call our office for any stone symptoms -F/U 1 year with KUB/KECIA Ordered: E&M of New Patient High 60-74 Min 89845 2. BPH with obstruction/lower urinary tract symptoms [...] Daily, # 30 cap(s), Refills(s) 11, Pharmacy: [id number], 168, cm, 02/23/24 10:12:00 EDT, Height/Length Dosing, 102, kg, 02/23/24 10:12:00 EDT, Weight Dosing E&M of New Patient High 60-74 Min 79992 3. Screening PSA (prostate specific antigen) (Z12.5: [...] E&M of New Patient High 60-74 Min 28069 PSA Total 4. Asymptomatic microscopic hematuria (R31.21: [...] Denies gross hematuria. (more content not included)... [facility] Comment on above: Result Comment: Elec [...] Follow these instructions at home: ? Take flua-zva-rfoiqst and prescription medicines only as told by [...] develop side effec (more content not included)... [facility] 01-19-2024 History of Present illness Narrative [address] [facility] [id number] Patient: Jorgito Jovel Date of : 1975 Encounter Date: 01/19/2024 History of Present Illness: The patient is a 48 y.o. male, an established patient, and is here for Chief Complaint Patient presents with Er Follow-up Still having soreness in back . HPI Patient is here for an ER follow-up. He was in the ER on January 08 for right flank pain and ureter stone of 5 mm with mild hydronephrosis. Results of CT scan were reviewed with patient including cholelithiasis and mild fatty liver. He continues to have mild aching in the right flank at times but states pain is much more manageable with increased fluids, Tylenol, and occasional tramadol. He was taking Toradol but has not taken that in a few days. Patient was also taking Flomax but has since stopped. He is complaining of some increased voiding during the night 2-3 times it is waking him up with the increase fluid intake. Patient denies any blood in urine. He has not yet been set up with urologist. Patient states he has a history of chronic back pain but he is unsure whether he wants surgery for this. He has gotten a surgery consultation through [place] in the past and decided not to proceed because she did not want to be off work for months at a time. Problem List Items Addressed This Visit None Visit Diagnoses Right ureteral stone - Primary Fatty liver Past Medical, Family, and Social History Update: The following portions of the patient's history were reviewed and updated as appropriate: allergies, current medications, past family history, past medical history, past social history, past surgical history and problem list. Past Medical History: Diagnosis Date Acid reflux Degeneration of lumbar intervertebral disc Headache Hypercholesterolemia Hyperlipidemia Kidney stone 2023 Past Surgical History: Procedure Laterality Date PARTIAL HIP ARTHROPLASTY Left 06/13/2014 Current Outpatient Medications Medication Sig Dispense Refill atorvastatin (LIPITOR) 20 mg tablet take 1 tablet by mouth every morning 90 tablet 1 cyclobenzaprine (FLEXERIL) 10 mg tablet Take 1 tablet (10 mg total) by mouth 3 (three) times a day as needed for muscle spasms. 30 tablet 2 fenofibrate (LOFIBRA) 160 mg tablet TAKE 1 TABLET BY MOUTH EVERY MORNING 90 tablet 1 magnesium oxide (MAGOX) 400 mg tablet Take 1 tablet (400 mg total) by mouth in the morning. 100 tablet 3 metoprolol succinate XL (TOPROL XL) 50 mg 24 hr tablet TAKE 1 TABLET BY MOUTH EVERY MORNING 90 tablet 1 omeprazole (PriLOSEC) 20 mg capsule daily. oxybutynin (DITROPAN) 5 mg tablet take 1 tablet by mouth in the morning 90 tablet 1 polyethylene glycol (GLYCOLAX) 17 gram/dose powder Take 17 g by mouth in the morning. 510 g 1 SEMAGLUTIDE, WEIGHT LOSS, SUBQ Inject 1.2 mg under the skin once a week. simethicone (MYLICON) 80 mg chewable tablet Chew 1 tablet (80 mg total) and swallow 4 (four) times a day as needed for flatulence. 100 tablet 2 traMADoL (ULTRAM) 50 mg tablet Take 1 tablet (50 mg total) by mouth 4 (four) times a day as needed for pain. 28 tablet 0 celecoxib (CeleBREX) 200 mg capsule Take 1 capsule (200 mg total) by mouth in the morning and 1 capsule (200 mg total) before bedtime. (Patient not taking: Reported on 01/19/2024) 180 capsule 1 No current facility-administered medications for this visit. (All medications reviewed and updated by provider since last office visit or hospitalization) Allergies: Patient has no known allergies. Tobacco History: Social History Tobacco Use Smoking Status Former Current packs/day: 0.00 Average packs/day: 0.5 packs/day for 33.2 years (16.6 ttl pk-yrs) Types: Cigarettes Start date: 1989 Quit date: 09/11/2022 Years since quittin.3 Smokeless Tobacco Never (If patient a smoker, smoking cessation counseling offered) Social History: Social History Substance and Sexual Activity Alcohol Use Not Currently Comment: Occasional 6 pack once a month Review of Systems: Review of Systems Constitutional: Positive for unexpected weight change (4 lb weight loss since January 01). Respiratory: Negative. Cardiovascular: Negative. Genitourinary: Positive for flank pain and frequency. Negative for decreased urine volume, difficulty urinating, dysuria, hematuria and urgency. Musculoskeletal: Positive for back pain (Chronic back pain). Physical Exam: BP 124/70 (BP Site: Left Arm, BP Postition: Sitting) Pulse 112 Temp 36.7 C (98 F) (Oral) Ht 165.1 cm (5' 5 ) Wt 102.7 kg (226 lb 6.4 oz) SpO2 97% BMI 37.67 kg/m Physical Exam Vitals reviewed. Constitutional: Appearance: Normal appearance. He is obese. HENT: Head: Normocephalic and atraumatic. Mouth/Throat: Mouth: Mucous membranes are moist. Eyes: Pupils: Pupils are equal, round, and reactive to light. Cardiovascular: Rate and Rhythm: Normal rate and regular rhythm. Heart sounds: Normal heart sounds. Pulmonary: Effort: Pulmonary effort is normal. Breath sounds: Normal breath sounds. Abdominal: General: Bowel sounds are normal. Palpations: Abdomen is soft. Tenderness: There is no abdominal tenderness. There is right CVA tenderness. There is no left CVA tenderness. Musculoskeletal: Right lower leg: No edema. Left lower leg: No edema. Skin: General: Skin is warm. Capillary Refill: Capillary refill takes less than 2 seconds. Neurological: General: No focal deficit present. Mental Status: He is alert and oriented to person, place, and time. Psychiatric: Mood and Affect: Mood normal. Behavior: Behavior normal. Assessment and Plan: Jorgito was seen today for er follow-up. Diagnoses and all orders for this visit: Right ureteral stone - Cancel: [facility] - [place], [place]; Future Fatty liver Follow-up: Patient was set up with [facility] but unfortunately they did not take his insurance so he was sent to Dr. Nunn for consultation. He was given this provider's office number and was asked to call to set up an appointment in the next few weeks. In the meantime patient may use the medications as discussed in his HPI and if he has development of intense flank pain despite this or hematuria he should contact office or go to the ER. Discussed mild fatty liver findings on CT as well as gallstones. F/u with Dr. Mancini in Mar for routine visit. ZOEY THOMAS APRN-CNP 01/23/24 [id number] documented in this encounter [employer] [facility] 01-02-2024 History of Present illness Narrative Subjective Patient ID: Jorgito Jovel is a 48 y.o. male. Lizandro presents today for recheck of weight loss. He is using Wegovy. He is up to 1.8 mg weekly. He still has nausea every time he eats, even if it is just a little bit. He has lost weight and he has happy with the results in general. The nausea something he can tolerate for the benefit of weight loss. He does eat out a lot because his does not cook. He is using the hydrocodone p.r.n.. He alternates it with tramadol. He last filled the hydrocodone 5 months ago. He only uses it when pain gets severe which is usually at 9 on a scale of 1-10. He will be getting new insurance and then would like to can a neurosurgery consult. He did see a neurosurgeon in the past but he is no longer in the area. He also has noticed a lump on his left ribcage which hurts like a deep bruise every time he bumps it. Otherwise it is asymptomatic. The following portions of the patient's history were reviewed and updated as appropriate: allergies, current medications, past family history, past medical history, past social history, past surgical history, problem list, and medication reconciliation was completed including current medication and post discharge medication. Review of Systems Constitutional: Positive for appetite change. Respiratory: Negative. Cardiovascular: Negative. Gastrointestinal: Positive for nausea. Musculoskeletal: Positive for arthralgias. Objective Physical Exam Vitals reviewed. Constitutional: General: He is not in acute distress. Appearance: He is obese. HENT: Head: Normocephalic. Eyes: General: No scleral icterus. Extraocular Movements: Extraocular movements intact. Conjunctiva/sclera: Conjunctivae normal. Cardiovascular: Rate and Rhythm: Normal rate and regular rhythm. Heart sounds: No murmur heard. Pulmonary: Effort: Pulmonary effort is normal. No respiratory distress. Breath sounds: Normal breath sounds. Abdominal: General: Bowel sounds are normal. Palpations: Abdomen is soft. Tenderness: There is no abdominal tenderness. Musculoskeletal: Cervical back: Neck supple. Skin: Findings: Lesion ([place], soft, freely movable mass along left anterior ribcage inferiorly) present. Neurological: General: No focal deficit present. Mental Status: He is alert and oriented to person, place, and time. Cranial Nerves: Cranial nerves 2-12 are intact. Gait: Gait is intact. Psychiatric: Attention and Perception: Attention normal. Mood and Affect: Mood normal. Speech: Speech normal. Behavior: Behavior normal. Behavior is cooperative. Thought Content: Thought content normal. Cognition and Memory: Cognition normal. Judgment: Judgment normal. Assessment/Plan Jorgito was seen today for weight loss. Diagnoses and all orders for this visit: Lumbar disc prolapse with compression radiculopathy - HYDROcodone-acetaminophen (NORCO) 5-325 mg per tablet; Take 1 tablet by mouth every 6 (six) hours as needed for pain for up to 5 days. Max Daily Amount: 4 tablets Will renew hydrocodone for p.r.n. use. He is deriving benefit. It is medically necessary. He there is no signs of abuse. Only uses it when pain gets severe. New pain contract signed. The OARRS/MAPPS database was reviewed today and found to be appropriate. No indication of medication diversion, or non compliance. Class 2 severe obesity due to excess calories with serious comorbidity and body mass index (BMI) of 39.0 to 39.9 in adult (CMS-HCC) He continues with weight loss with Wegovy. He has happy with the results although he has nauseated. We did discuss his diet and ways to decrease nausea. It should also improve over time. His dose was recently increased about a month and a half ago and we are probably seeing the peak plasma levels about now. We will continue on the same dose instead of increasing it to the higher dose. He was congratulated on his weight loss and encouraged to continue. Lipoma, unspecified site Mass appears to be a lipoma clinically. I would recommend just watching it. It only hurts when he bumps into it. If it starts to bother more often then we will have him see a surgeon. documented in this encounter [facility] 11-08-2023 Miscellaneous Notes Pt called stated he neds a refill of his wagovy . Not sure what dose he needs , some other screen comes up when I tried to send you a reorder Form printed out to faxed to [facility] documented in this encounter [facility] 11-08-2023 Telephone encounter Note Pt called stated he neds a refill of his wagovy . Not sure what dose he needs , some other screen comes up when I tried to send you a reorder [facility] 11-08-2023 Telephone encounter Note Form printed out to faxed to [facility] 10-10-2023 History of Present illness Narrative Subjective Patient ID: Jorgito Jovel is a 48 y.o. male. Here for f/u on his weight loss His weight loss has slowed at this time but he still has lost a few additional lbs He is having trouble with bloating and gas but he had this problem before He is having fewer bms and they are more firm about every 3 days Otherwise no issues with toleration of his medication and he wishes to go forward with the next dose of medication The following portions of the patient's history were reviewed and updated as appropriate: allergies, current medications, past family history, past medical history, past social history, past surgical history, problem list, and medication reconciliation was completed including current medication and post discharge medication. Review of Systems Constitutional: Positive for activity change. HENT: Negative. Eyes: Negative. Respiratory: Negative. Cardiovascular: Negative. Gastrointestinal: Positive for abdominal distention. Endocrine: Negative. Genitourinary: Negative. Musculoskeletal: Positive for arthralgias. Allergic/Immunologic: Negative. Neurological: Negative. Hematological: Negative. Psychiatric/Behavioral: Negative. Objective Physical Exam Vitals and nursing note reviewed. Constitutional: General: He is not in acute distress. Appearance: He is obese. He is not ill-appearing. Eyes: Conjunctiva/sclera: Conjunctivae normal. Neck: Vascular: No carotid bruit. Cardiovascular: Rate and Rhythm: Normal rate and regular rhythm. Heart sounds: Normal heart sounds. No murmur heard. Pulmonary: Effort: Pulmonary effort is normal. Breath sounds: Normal breath sounds. Musculoskeletal: Cervical back: No tenderness. Right lower leg: No edema. Left lower leg: No edema. Lymphadenopathy: Cervical: No cervical adenopathy. Skin: General: Skin is warm and dry. Neurological: Mental Status: He is alert. Psychiatric: Mood and Affect: Mood normal. Behavior: Behavior normal. Thought Content: Thought content normal. Judgment: Judgment normal. Assessment/Plan Jorgito was seen today for follow-up. Diagnoses and all orders for this visit: Morbid obesity (CMS-HCC) Abdominal bloating - polyethylene glycol (GLYCOLAX) 17 gram/dose powder; Take 17 g by mouth in the morning. - simethicone (MYLICON) 80 mg chewable tablet; Chew 1 tablet (80 mg total) and swallow 4 (four) times a day as needed for flatulence. Will increase his dose from 0.6 mg to 1.2 mg of semaglutide Will plan his next office visit for 3 months He may call in one month, if he is doing well will increase to 1.8 mg dose and then in one more month he can be increased to the 2.26 dose which is the maintenance dose Will try miralax to help with the bloating and stimulate his bowels and he can also try mylicon as well, call if symptoms fail to improve EDI Berg 10/10/231838 documented in this encounter [facility] 09-12-2023 History of Present illness Narrative Semaglutide 0.6 mg once a week sent in to [facility] documented in this encounter [facility] 08-30-2023 History of Present illness Narrative Subjective Patient ID: Jorgito Jovel is a 48 y.o. male. He was [...] for this visit: [place]ontraumatic) [place] - Comprehensive metabolic panel; Future Hypomagnesemia - Magnesium; Future Essential hypertension Morbid obesity ([facility] He looks good today and his labs [...] Berg 08/30/23 1710 documented in this encounter [facility] 08-13-2023 Miscellaneous Notes I called pt and he is taking it.He has a 90 supply everything good he is receiving it through [facility] documented in this encounter [facility] 08-13-2023 Telephone encounter Note I called pt and he is taking it.He has a 90 supply everything good he is receiving it through [facility] 08-04-2023 History of Present illness Narrative Subjective Patient ID: Jorgito Jovel is a 48 y.o. male. Lizandro presents [...] like a refill. 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 I have gotten multiple request to refill this medication. Call patient and find out what is going on It will be covered if it goes to this pharmacy That pharmacy does not accept e-prescriptions per Epic. I printed out a prescription to hand fax documented in this encounter [facility] 07-08-2023 Telephone encounter Note Patient told me that this was no longer going to be covered so I sent in an alternative. I have gotten multiple request to refill this medication. Call patient and find out what is going on [facility] [employer] [facility] 07-08-2023 Telephone encounter Note It will be covered if it goes to this pharmacy [facility] 07-08-2023 Telephone encounter Note That pharmacy does not accept e-prescriptions per Epic. [facility] 07-04-2023 Miscellaneous Notes [facility] rep called requesting an [facility] med refill however I dont see it as a listed med. Please advise. It was not going to be covered so I changed it to something else per patient's request. documented in this encounter [facility] [employer] [facility] 07-04-2023 Telephone encounter Note [facility] rep called requesting an [facility] med refill however I dont see it as a listed med. Please advise. [facility] 07-04-2023 Telephone encounter Note It was not going to be covered so I changed it to something else per patient's request. [facility] 06-21-2023 History of Present illness Narrative Subjective Patient ID: Jorgito Jovel is a 48 y.o. male. A few weeks before thanksgiving he started with pain in his left elbow then on thanksgiving he tried opening a can of cranberry [...] EDI Amaya 06/21/231723 documented in this encounter [facility] 12-04-2021 Note PROCEDURE: XR HEEL R [...] authenticated by: SALINA AGUILERA Date: 2021-12-04 09:07 [facility] 06-16-2021 Evaluation note Encounter Date Diagnosis Assessment [...] Patient care instructions given in writting by [facility] document. [facility] Other 09-09-2021 NotePROCEDURE: XR KNEE RT 4V [...] Electronically authenticated by: SALINA AGUILERA Date: 2021-02-19 [facility] Future Appointments Appointment Date:05/24/2024 09:00:00 AM Scheduled Provider:Kiarra Christiansen Location:[facility] Appointment Type:URO Office Visit Diagnostic Tests Pending * Creatinine 03/01/24 [facility] evaluation + Plan note Future Appointments Appointment Date:05/24/2024 09:00:00 AM Scheduled Provider:Kiarra Christiansen Location:[facility] Appointment Type:URO Office Visit Diagnostic Tests Pending * Urine Culture 02/23/24 [facility] Evaluation + Plan note Future Appointments Appointment Date:05/24/2024 09:00:00 AM Scheduled Provider:Kiarra Christiansen Location:[facility] Appointment Type:URO Office Visit Diagnostic Tests Pending * PSA Total 02/23/24 [facility] evaluation note* Diagnosis Morbid obesity ([facility])- Primary Morbid obesity Abdominal bloating Flatulence, eructation, and gas pain [facility] Diagnosis Lateral epicondylitis of left elbow- Primary [facility] Diagnosis Lumbar disc prolapse with compression radiculopathy- Primary Displacement of lumbar intervertebral disc without myelopathy [facility] Diagnosis Essential (primary) hypertension Unspecified essential hypertension Urinary urgency Urgency of urination [facility] Diagnosis Essential (primary) hypertension Unspecified essential hypertension [facility] Diagnosis Urinary urgency Urgency of urination [facility] Diagnosis Morbid obesity ([facility])- Primary Morbid obesity Lumbar disc prolapse with compression radiculopathy Displacement of lumbar intervertebral disc without myelopathy Left lateral epicondylitis Essential hypertension Unspecified essential hypertension Spondylolisthesis, lumbar region Pre-diabetes Other abnormal glucose [facility] Diagnosis Urinary urgency Urgency of urination [facility] Diagnosis Essential (primary) hypertension Unspecified essential hypertension [facility] Diagnosis Lumbar disc prolapse with compression radiculopathy- Primary Displacement of lumbar intervertebral disc without myelopathy Class 2 severe obesity due to excess calories with serious comorbidity and body mass index (BMI) of 39.0 to 39.9 in adult ([facility]) Lipoma, unspecified site [facility] Diagnosis Acute kidney injury (nontraumatic) ([facility])- Primary Acute kidney failure, unspecified Hypomagnesemia Disorders of magnesium metabolism Essential hypertension Unspecified essential hypertension Morbid obesity ([facility]) Morbid obesity [facility] Diagnosis Hypomagnesemia- Primary Disorders of magnesium metabolism [facility] Diagnosis Right ureteral stone- Primary [facility] Diagnosis Right ureteral stone- Primary Fatty liver Other chronic nonalcoholic liver disease [facility] Diagnosis Spondylolisthesis, lumbar region [facility] Diagnosis Lumbar disc prolapse with compression radiculopathy Displacement of lumbar intervertebral disc without myelopathy [facility] Diagnosis Lumbar disc prolapse with compression radiculopathy- Primary Displacement of lumbar intervertebral disc without myelopathy Class 2 severe obesity due to excess calories with serious comorbidity and body mass index (BMI) of 36.0 to 36.9 in adult ([facility]) Essential hypertension Unspecified essential hypertension Other fatigue [facility]* Diagnosis Urinary urgency Urgency of urination [facility]* Diagnosis Spondylolisthesis, lumbar region [facility]* Diagnosis Lumbar disc prolapse with compression radiculopathy- Primary Displacement of lumbar intervertebral disc without myelopathy [facility] general Narrative - Reported* Type Description Date Medical History GERD Medical History arthritis Medical History NIDDM Medical History HTN Medical History hyperlipidemia Medical History sleep apnea Medical History depression Medical History deviated nasal septum Medical History chronic sinusitis Medical History COPD Surgical History Injection Tendon Origin/Inserti on Surgical History LASIK Surgical History total hip replacement, left Hospitalization History surgeries stylemarks Other Hospital course Narrative No data available for this section [facility] Hospital Discharge instructions No data available for this section [facility] InstructionsNot on filedocumented in this encounter [facility] filedocumented in this encounter [facility] on filedocumented in this encounter [facility] on filedocumented in this encounter [facility]ructionsNot on filedocumented in this encounter [facility]ructionsNot on filedocumented in this encounter [facility]ructionsNot on filedocumented in this encounter [facility]ructionsNot on filedocumented in this encounter [facility]* Attachments The following attachments cannot be sent through Care Everywhere. * Kidney stones in adults (Tajik) [facility] SystemInstructionsNot on file documented in this [facility]Pro[facility] SystemInstructionsNot on file documented in this encounterPro[facility] SystemInstructionsNot on file documented in this encounterPro[facility] SystemProgress note No data available for this section [facility] reason for referral (narrative)* Consultation (Routine) - Pending Review Specialty Diagnoses / Procedures Referred By Cassandra t Referred To Contact Urology Diagnoses Right ureteral stone Jorge Gibbs APRN-CNP [address] [place] [address] Juancho Nunn MD [address] [place] [address] Referral ID Status Reason Start Date Expiration Date Visits Requested Visits Authorized [id number] Pending Review Specialty Services Required 01/20/2024 01/19/2025 1 1 [facility] Summary Purpose Family History No Family History Records FoundNo Family History Records FoundNo Family History Records FoundNo Family History Records FoundNo Family History Records FoundNo Family History Records Found No data available for this section No data available for this section No data available for this section No Family History Records Found No data available for this section No data available for this section No Family History Records FoundNo Family History [...] DATE CREATED AUTHOR AUTHOR'S ORGANIZ ATION 12/02/2017 [facility] DATE CREATED AUTHOR AUTHOR'S ORGANIZ ATION 06/02/2021 [facility] DATE CREATED AUTHOR AUTHOR'S ORGANIZ ATION 12/09/2021 [facility] DATE CREATED AUTHOR AUTHOR'S ORGANIZ ATION 02/26/2024 [facility] DATE CREATED AUTHOR AUTHOR'S ORGANIZ ATION 02/27/2024 [facility] DATE CREATED AUTHOR AUTHOR'S ORGANIZ ATION 05/27/2024 [facility] DATE CREATED AUTHOR AUTHOR'S ORGANIZ ATION 06/04/2024 [facility] DATE CREATED AUTHOR AUTHOR'S ORGANIZ ATION 07/29/2024 [facility] DATE CREATED AUTHOR AUTHOR'S ORGANIZ ATION 08/10/2024 [facility] DATE CREATED AUTHOR AUTHOR'S ORGANIZ ATION 08/27/2024 [facility] REASON FOR VISIT (unrecogniz ed section and content) Reason Comments Follow-up Reason Comments elbow, arm wrist pain w/ lump on wrist Reason Comments Back Pain Reason Comments Med Refill Reason Onset Date Comments Med Refill 11/08/2023 Reason Comments Weight Loss Reason Comments Follow-up From ER visit 3 days at [facility] Reason Comments Er Follow-up Still having sorenes s in back Reason Onset Date Comments Med Refill 02/16/2024 Reason Comments controlled Reason Onset Date Comments Med Refill 08/27/2024 Patient Care team informatio n (unrecognized section and content) [employer] Relationship Specialty Start Date End Date Shahbaz Mancini DO [address], [place] [address] PCP - General Family Medicine 02/11/22 [employer] Process[employer] Manager Relationship Specialty Start Date End Date Shahbaz Mancini DO [address] [place] [address] PCP - General Family Medicine 02/11/22 Materials And Process[employer] Manager Relationship Specialty Start Date End Date Shahbaz Mancini DO [address] [place] [address] PCP - General Family Medicine 02/11/22 Materials And Processes Manager Relationship Specialty Start Date End Date Shahbaz Mancini DO [address] [place] [address] PCP - General Family Medicine 02/11/22 Materials And Process[employer] Manager Relationship Specialty Start Date End Date Shahbaz Mancini DO [address] [place] [address] PCP - General Family Medicine 02/11/22 Materials And Process[employer] Manager Relationship Specialty Start Date End Date Shahbaz Mancini DO [address] [place] [address] PCP - General Family Medicine 02/11/22 Materials And Process[employer] Manager Relationship Specialty Start Date End Date Shahbaz Mancini DO [address] [place] [address] PCP - General Family Medicine 02/11/22 Materials And Processes Manager Relationship Specialty Start Date End Date Shahbaz Mancini DO [address] [place] [address] PCP - General Family Medicine 02/11/22 Materials And Processes Manager Relationship Specialty Start Date End Date Shahbaz Mancini DO [address], [place] [address] PCP - [facility] 02/11/22 Materials And Processes Manager Relationship Specialty Start Date End Date Shahbaz Mancini DO [address] [place] [address] [address] PCP - [facility] 02/11/22 [employer] And Process[employer] Manager Relationship Specialty Start Date End Date Shahbaz Mancini DO [address] [place] [address] PCP - [facility] 02/11/22 Materials And Processes Manager Relationship Specialty Start Date End Date Shahbaz Mancini DO [address], [place] [address] PCP - [facility] 02/11/22 FOR RECORDS PERTAINING [...] BE BASED ON THE PRIMARY CLINICAL RECORDS. [facility]. provides no warranty or guarantee of the accuracy or completeness of information in this document.
--- NOTE | 2024-08-29 06:51 | MR_ITS ---
The [address] [address] Patient Name: STEFFANY JOVEL MRN: [id number] date: 1975 Sex: M Assigned Patient Location: MRI Current Patient Location: MRI Accession/Order Number: [id number] Exam Date: 08/29/2024 12:33 Report Date: 08/29/2024 12:37 At the request of: MARCELLA ROGERS MD Procedure: MR lumbar spine wo con EXAMINATION: MRI LUMBAR SPINE WITHOUT IV CONTRAST CLINICAL HISTORY: Low back pain for years. COMPARISON: None TECHNIQUE: Multiecho imaging was performed in the sagittal and axial planes without contrast administration. FINDINGS: Vertebral body heights appear maintained. No bone marrow edema. Spinal cord terminates in normal position without abnormal cord signal. No paraspinal mass. Visualized retroperitoneum demonstrates no acute process. At L1-L2: Diffuse broad-based disc bulge with mild facet joint degenerative changes. Mild canal and bilateral neural foraminal stenosis. At L2-L3: Diffuse broad-based disc bulge is present with facet joint degenerative changes causing mild canal and bilateral neural foraminal stenosis. At L3-L4: No significant posterior disc pathology. Mild facet joint degenerative changes. No significant canal stenosis. Mild bilateral neural foraminal stenosis. At L4-L5: Mild diffuse broad-based disc bulge is present with facet joint degenerative changes causing mild canal and moderate bilateral foraminal stenosis. At L5-S1: Central protrusion type disc herniation is present. Facet joint degenerative change. Findings are causing mild canal and moderate bilateral foraminal stenosis. MR/MR lumbar spine wo con IMPRESSION: Multilevel degenerative disease as described above. No severe canal stenosis is present. Impression dictated by: Apollo Lee Jr., DEduOEdu08/29/2024 12:37 PM Dictation Location: [facility] Electronically authenticated by: [id number] Date: 08/29/2024 12:37
== END 2024-08-29 06:42 | disposition home or self-care (01) ==
LOC: MRI 06:42
PROVIDERS: PCP Family Medicine; Visit Provider Anesthesiology
DX: M48.062 Spinal stenosis, lumbar region with neurogenic claudication (principal); M51.369 Other intervertebral disc degeneration, lumbar region without mention of lumbar back pain or lower extremity pain
CPT/HCPCS: 72148

== ENCOUNTER 2024-09-05 09:50 | Outpatient (OUT) | payer OTHER, SELFPAY ==
--- OUTSIDE RECORDS SUMMARY | 2024-09-05 10:11 | XMS_ITS | CCD ---
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 Name Role Phone Christina Apodaca Unavailable Unavailable [...] Attending Unavailable SHAHBAZ MANCINI Primary Care Physician [phone] Kiarra Min Attending Unavailable Kiarra Min Admitting [...] Daily, # 90 tab(s), Refills(s) 3, Pharmacy: [facility], 168, cm, 03/01/24 15:29:00 EDT, Height/Length [...] Active Start: 05-24-2024 take 1 capsule by [facility] once daily Flomax 0.4 mg Cap 0.4 mg = 1 cap(s), Oral, Daily, # 30 cap(s), Refills(s) 11, Pharmacy: [facility], 168, cm, 05/24/24 9:22:00 EST, Height/Length Dosing, 102.6, kg, 05/24/24 9:22:00 EST, Weight Dosing Start Date: 05/24/24 Status: Ordered Start: 02-23-2024 take 1 capsule by [facility] once daily Flomax 0.4 mg Cap 0.4 mg = 1 cap(s), Oral, Daily, # 30 cap(s), Refills(s) 11, Pharmacy: [facility], 168, cm, 02/23/24 10:12:00 EDT, Height/Length [...] 06/21/2023 Discontinued (Therapy completed) polyethylene glycol 3350 58021 mg powder for oral solution (9 sources) [...] region] Episodic Other aftercare (1 source) Other fdc (current) drug therapy; Translations: [OTH DETENTION CURRENT [...] with AG for a 3-4m f/u in [place], schedule not built for her yet. due back the beginning of September, Pt has been scheduled for 09/2024 w/[facility] COMPREHENSIVE METABOLIC PANE Clint 05-28-2024 Albumin [Mass/Vol] 4.5 g/dL Normal 3.2-5.3 [facility] Comment on above: Performed By: #### Neyda LAU, 67660-1 #### [facility] ([id number]) [address], [address] [place] [address] ALP [Catalytic activity/Vol] 75 U/L Normal 39-130 [facility] Comment on above: Performed By: #### Neyda LAU, 95065-5 #### [facility] ([id number]) [address], [address] [place] [address] ALT [Catalytic activity/Vol] 29 U/L Normal 0-40 [facility] Comment on above: Performed By: #### Neyda LAU, 16310-5 #### [facility] ([id number]) [address], [address] [place] [address] Anion gap [Moles/Vol] 10 mmol/L Normal 5-15 [facility] Comment on above: Performed By: #### Neyda LAU, 44970-1 #### [facility] ([id number]) [address], [address] [place] [address] AST [Catalytic activity/Vol] 28 U/L Normal 0-41 [facility] Comment on above: Performed By: #### Neyda LAU, 96541-3 #### [facility] ([id number]) [address], [address] [place] [address] Bilirubin [Mass/Vol] 0.4 mg/dL Normal 0.3-1.2 [facility] Comment on above: Performed By: #### Neyda LAU, 31001-3 #### [facility] ([id number]) [address], [address] [place] [address] Calcium [Mass/Vol] 10.4 mg/dL Normal 8.5-10.5 [facility] Comment on above: Performed By: #### Neyda LAU, 11217-2 #### [facility] ([id number]) [address], [address] [place] [address] Chloride [Moles/Vol] 105 mmol/L Normal 98-109 [facility] Comment on above: Performed By: #### Neyda LAU, 06612-5 #### [facility] ([id number]) [address], [address] [place] [address] CO2 [Moles/Vol] 26 mmol/L Normal 22-32 [facility] Comment on above: Performed By: #### Neyda LAU, 48226-5 #### [facility] ([id number]) [address], [address] [place] [address] Creatinine [Mass/Vol] 1.05 mg/dL Normal 0.60-1.30 [facility] Comment on above: Result Comment: METH OD TRACEABLE TO IDMS STANDARD Performed By: #### Neyda LAU, 72240-3 #### [facility] ([id number]) [address], [address] [place] [address] GFR/1.73 sq M.predicted among non-blacks MDRD (S/P/Bld) [Vol rate/Area] 86 mL/min/{1.73_m2} Normal >59 [facility] Comment on above: Result Comment: Reported eGFR is based on the CKD-EPI 2020 equation that does not use a race coefficient. Performed By: #### Neyda LAU 05279-6 #### [facility] ([id number]) [address], [address] [place] [address] Glucose [Mass/Vol] 132 mg/dL High 65-99 [facility] Comment on above: Performed By: #### Neyda LAU 98665-1 #### [facility] ([id number]) [address] [address] [place] [address] Potassium [Moles/Vol] 4.2 mmol/L Normal 3.5-5.0 [facility] Comment on above: Performed By: #### Neyda LAU 81099-4 #### [facility] ([id number]) [address], [address] [place] [address] Protein [Mass/Vol] 7.6 g/dL Normal 6.0-8.0 [facility] Comment on above: Performed By: #### Neyda LAU 18022-3 #### [facility] ([id number]) [address], [address] [place] [address] Sodium [Moles/Vol] 141 mmol/L Normal 134-146 [facility] Comment on above: Performed By: #### Neyda LAU 49379-4 #### [facility] ([id number]) [address] [address] [place] [address] Urea nitrogen [Mass/Vol] 18 mg/dL Normal 5-23 [facility] Comment on above: Performed By: #### Neyda LAU 31381-6 #### [facility] ([id number]) [address], [address] [place] [address] Lipid 1996 panelon 4 Cholesterol [Mass/Vol] 118 mg/dL Low 150-200 [facility] Comment on above: Performed By: #### Neyda LAU, 21575-5 #### [facility] ([id number]) [address], [address] [place] [address] Cholesterol in HDL [Mass/Vol] 27 mg/dL Low >39 [facility] Comment on above: Result Comment: HDL <40 mg/dL - High Risk HDL > or = 40mg/dL- Desirable HDL >60 mg/dL - Negative Risk Performed By: #### Neyda LAU, 01583-1 #### [facility] ([id number]) [address], [address] [place] [address] Cholesterol in LDL [Mass/Vol] 44 mg/dL Normal <130 [facility] Comment on above: Result Comment: LDL <100 mg/dL - Desirable LDL >160 mg/dL - High Risk Performed By: #### Neyda LAU, 30168-9 #### [facility] ([id number]) [address], [address] [place] [address] Cholesterol in VLDL [Mass/Vol] 47 mg/dL High 0-30 [facility] Comment on above: Performed By: #### Neyda LAU, 45448-9 #### [facility] ([id number]) [address], [address] [place] [address] CHOLESTEROL:HDL 4.4 Normal 1.0-5.0 [facility] Comment on above: Performed By: #### C SID, 56274-1 #### [facility] ([id number]) [address] [facility], [address] [place] [address] Triglyceride [Mass/Vol] 233 mg/dL High 27-150 [facility] Comment on above: Performed By: #### C SID, 88073-7 #### [facility] ([id number]) [address], [address] [place] [address] Ambulatory Visit Summaryon 1 07-25-2023 Ambulatory Visit [...] for choosing us for your care. [facility] CHEMISTRYOrdered By: SYSTEM SYSTEM on 05-24-2024 [...] used for this result was chemiluminescence using [employer]'s Access Hybritech PSA reagent. PSA Totalon 05-24-2024 Prostate specific Ag [Mass/Vol] 0.8 ng/mL Normal 0.1-3.5 [facility] Comment on above: Result Comment: The concentration of PSA determined by different manufacturers can vary due to differences in assay methods and reagent specificity. Values obtained from different assay methods cannot be used interchangeably. The methodology used for this result was chemiluminescence using [employer]'s Access Hybritech PSA reagent. Performed By: #### 1 [id number] #### [facility] [address] [place] [address] Urology Office/Clinic Noteon 05-24-2024 Urology Office/Clinic Note [...] (Z87.442: Personal history of urinary calculi) 01/08/[address] [facility] ER CT w/o con - mild R [...] stone within right ureter. Pt went to [facility] ER on 01/08/24 due to pain. Pt [...] ensure stone passage. Pt then went to [facility] ER on 02/27/24 for gross hematuria, abdominal/scrotal pain and also experienced urinary frequency and urgency. No labs or imaging were completed at that visit. Advised pt that he most likely was passing a stone at that time. IVP completed 03/06/24, no stone identified. This is patient's first stone event. Today, he denies further stone events. Denies gross hematuria. -Increase fluids -Add lemon/mcgrath to fluid intake -Call our office for [...] me. Authentic (more content not included)... [facility] Comment on above: Result Comment: Elec tronically Signed By: Kiarra Christiansen\.br\Date and Time Signed: 05/24/24 11:08 EST\.br\Electronically Co-Signed By: Stefany Farooq PA-C\.br\Date and Time Co-Signed: 05/24/24 10:54 EST Provider Letteron 03-06-2024 Provider Letter Provider Letter March 06, 20[address] [facility] [address] [place] [id number] : 1975 To Whom It May Concern, Please excuse above patient from work. Date of appointment: From: 03/06/2024 To: _ May Return to Work On:03/06/2024 Restrictions: none Comments: Any questions, please call our office Sincerely, [facility] [address], [place] [address] [facility] Ambulatory Visit Summaryon 0 03-01-2024 Ambulatory [...] With: Kiarra Christiansen Where: [facility] [address] [place] [address]- Medications What How Much When Why Instructions [...] for choosing us for your care. [facility] Urology Office/Clinic Noteon 03-01-2024 Urology Office/Clinic [...] (Z87.442: Personal history of urinary calculi) 01/08/24 [facility] ER CT w/o con - mild R hydronephrosis due to a 5mm proximal R ureteral stone near the UPJ. No additional upper or lower urinary tract calculi are seen on either side. There are no other acute findings in the abdomen or pelvis 02/16/24 [facility] - no appreciable urinary tract calculi Pt went to [facility] ER on 01/08/24 due to pain. Pt [...] not had pain. Pt then went to [facility] ER on 02/27/24 for gross hematuria, abdominal/scrotal [...] drink a lot of water and drinks [employer]. Discussed increasing fluids and adding lemon/mcgrath to patient's regimen, pt verbalizes understanding. Briefly discussed metabolic workup with patient should he develop another stone. -IVP now at [facility], call patient with results -If a stone is present, we will set patient up with appt with Dr. Nunn to discuss treatment. If no stone on IVP, this will ensure stone passage and pt to follow up as scheduled -Increase fluids, avoid bladder irritants -Add lemon/mcgrath, lemonade to fluid intake -Call our office for any stone symptoms -F/U 1 year with KUB/KECIA Ordered: E&M of Est. Patient Moderate 30-39 Min 09962 2. Gross hematuria (R31.0: Gross hematuria) UA today negative for blood or infection -See #1 Ordered: Creatinine E&M of Est. Patient Moderate 30-39 Min 80067 Urnls Dip Stick Auto w/o Microscopy POC 39910 XR IVP 3. BPH with obstruction/lower urinary [...] daily -Increase (more content not included)... [facility] Comment on above: Result Comment: Elec [...] Locations R1: This test was performed at: [facility], [address] [place] [address], [address] , , [facility] Comment on above: Performed By: #### 2 [id number] #### [facility] [address] [place] [address] Ambulatory Visit Summaryon 0 02-23-2024 Ambulatory Visit [...] With: Kiarra Christiansen Where: [facility] [address] [address] Medications What How Much When Instructions Unchanged [...] for choosing us for your care. [facility] Provider Letteron 02-23-2024 Provider Letter Provider Letter February 23, 2024 [facility] [address] [place] [address] : 1975 To Whom It May Concern, Please excuse above patient from work. Date of appointment: From: 02/23/2024 To: _ May Return to Work On:02/23/2024 Restrictions: none Comments: Any questions, please call our office Sincerely, [facility] [address], [place] [address] [facility] URINALYSISOrdered By: SYSTEM SYSTEM on 02-23-2024 [...] that meet specific criteria set forth by [facility]. Crystals.amorphous Computer assisted Ql (U) [...] Ql (U) 0-3 graded/HPF Normal 0-3graded/HP F [facility] UA Auto SS Specific gravity (U) [Rel density] 1.025 *NA* (02/23/24 11:17 AM) Invalid Interpretation Code 1.005 - 1.030 [facility] UA Auto SS Urobilinogen (U) [Mass/Vol] Negative Normal Negativemg/d L [facility] UA Auto SS URINALYSISOrdered By: Kathy Busch on 02-23-2024 UA Spec Desc Clean Catch (02/23/24 11:17 AM) Normal [facility] UA Auto SS Urinalysis with Microon 02-11 Bilirubin Ql (U) Negative Normal Negative [facility] Comment on above: Performed By: #### 4 [id number] #### [facility] [address] [place] [address] Clarity (U) Ex.Turbid Abnormal [facility] Comment on above: Performed By: #### 4 [id number] #### [facility] [address] [place] [address] Color (U) Yellow Normal [facility] Comment on above: Result Comment: Micr oscopic readings are only performed on those samples that meet specific criteria set forth by [facility]. Performed By: #### 4 [id number] #### [facility] [address] [place] [address] Crystals.amorphous Computer assisted Ql (U) Present Abnormal [facility] Comment on above: Performed By: #### 4 [id number] #### [facility] [address] [place] [address] Glucose Ql (U) Negative Normal Negative [facility] Comment on above: Performed By: #### 4 [id number] #### [facility] [address] [place] [address] Hemoglobin Auto test strip (U) [Mass/Vol] Negative Normal Negative [facility] Comment on above: Performed By: #### 4 [id number] #### [facility] [address] [place] [address] Ketones Auto test strip Ql (U) Negative Normal Negative [facility] Comment on above: Performed By: #### 4 [id number] #### [facility] [address] [place] [address] Leukocyte esterase Auto test strip Ql (U) Negative Normal Negative [facility] Comment on above: Performed By: #### 4 [id number] #### [facility] [address] [place] [address] Mucus Auto Ql (U) 1+ CD:[id number] Abnormal Negative [facility] Comment on above: Performed By: #### 4 [id number] #### [facility] [address] [place] [address] Nitrite Auto test strip Ql (U) Negative Normal Negative [facility] Comment on above: Performed By: #### 4 [id number] #### [facility] [address] [place] [address] pH (U) 5.0 [pH] Invalid Interpretation Code 5.0-9.0 [facility] Comment on above: Performed By: #### 4 [id number] #### [facility] [address] [place] [address] Protein Ql (U) Negative Normal Negative [facility] Comment on above: Performed By: #### 4 [id number] #### [facility] [address] [place] [address] RBC Ql (U) 0-3 Normal 0-3 [facility] Comment on above: Performed By: #### 4 [id number] #### [facility] [address] [place] [address] Specific gravity (U) [Rel density] 1.025 Invalid Interpretation Code 1.005-1.030 [facility] Comment on above: Performed By: #### 4 [id number] #### [facility] [address] [place] [address] Urobilinogen (U) [Mass/Vol] Negative Normal Negative [facility] Comment on above: Performed By: #### 4 [id number] #### [facility] [address] [place] [address] Type of Urine collection method Clean Catch [facility] Comment on above: Performed By: #### 4 [id number] #### [facility] [address] [place] [address] COMPREHENSIVE METABOLIC PANE [facility] 08-30-2023 Albumin [Mass/Vol] 4.1 g/dL Normal 3.2-5.3 [facility] Comment on above: Performed By: #### C SID, #### [facility] ([id number]) [address], [address] [place] [address] ALP [Catalytic activity/Vol] 32 U/L Low 39-130 [facility] Comment on above: Performed By: #### Neyda LAU, #### [facility] ([id number]) [address], [address] [place] [address] ALT [Catalytic activity/Vol] 58 U/L High 0-40 [facility] Comment on above: Performed By: #### Neyda LAU, #### [facility] ([id number]) [address], [address] [place] [address] Anion gap [Moles/Vol] 9 mmol/L Normal 5-15 [facility] Comment on above: Performed By: #### Neyda LAU, #### [facility] ([id number]) [address], [address] [place] [address] AST [Catalytic activity/Vol] 40 U/L Normal 0-41 [facility] Comment on above: Performed By: #### Neyda LAU, #### [facility] ([id number]) [address], [address] [place] [address] Bilirubin [Mass/Vol] 0.3 mg/dL Normal 0.3-1.2 [facility] Comment on above: Performed By: #### Neyda LAU, #### [facility] ([id number]) [address], [address] [place] [address] Calcium [Mass/Vol] 9.7 mg/dL Normal 8.5-10.5 [facility] Comment on above: Performed By: #### C SID, #### [facility] ([id number]) [address], [address] [place] [address] Chloride [Moles/Vol] 107 mmol/L Normal 98-109 [facility] Comment on above: Performed By: #### Neyda LAU, #### [facility] ([id number]) [address], [address] [place] [address] CO2 [Moles/Vol] 26 mmol/L Normal 22-32 [facility] Comment on above: Performed By: #### Neyda LAU, #### [facility] ([id number]) [address], [address] [place] [address] Creatinine [Mass/Vol] 1.18 mg/dL Normal 0.60-1.30 [facility] Comment on above: Result Comment: METH OD TRACEABLE TO IDMS STANDARD Performed By: #### C SID, #### [facility] ([id number]) [address] [place] [address] GFR/1.73 sq M.predicted among non-blacks MDRD (S/P/Bld) [Vol rate/Area] 75 mL/min/{1.73_m2} Normal >59 [facility] Comment on above: Result Comment: Reported eGFR is based on the CKD-EPI 2020 equation that does not use a race coefficient. Performed By: #### C SID, #### [facility] ([id number]) [address], [address] [place] [address] Glucose [Mass/Vol] 92 mg/dL Normal 65-99 [facility] Comment on above: Performed By: #### C SID, #### [facility] ([id number]) [address], [address] [place] [address] Potassium [Moles/Vol] 4.1 mmol/L Normal 3.5-5.0 [facility] Comment on above: Performed By: #### Neyda LAU, #### [facility] ([id number]) [address], [address] [place] [address] Protein [Mass/Vol] 6.8 g/dL Normal 6.0-8.0 [facility] Comment on above: Performed By: #### Neyda LAU, #### [facility] ([id number]) [address], [address] [place] [address] Sodium [Moles/Vol] 142 mmol/L Normal 134-146 [facility] Comment on above: Performed By: #### Neyda LAU, #### [facility] ([id number]) [address], [address] [place] [address] Urea nitrogen [Mass/Vol] 23 mg/dL Normal 5-23 [facility] Comment on above: Performed By: #### Neyda LAU, #### [facility] ([id number]) [address], [address] [place] [address] Comprehensive metabolic pane clint 08-30-2023 Albumin [Mass/Vol] 4.1 g/dL 3.2 - 5.3 g/dL [facility] ALP [Catalytic activity/Vol] 32 U/L Low 39 - 130 U/L [facility] ALT No additional P-5'-P [Catalytic activity/Vol] 58 U/L High 0 - 40 U/L [facility] Anion gap [Moles/Vol] 9 mmol/L 5 - 15 mmol/L [facility] AST [Catalytic activity/Vol] 40 U/L 0 - 41 U/L [facility] Bilirubin [Mass/Vol] 0.3 mg/dL 0.3 - 1 .2 mg/dL [facility] Calcium [Mass/Vol] 9.7 mg/dL 8.5 - 10. 5 mg/dL [facility] Chloride [Moles/Vol] 107 mmol/L 98 - 10 9 mmol/L [facility] CO2 [Moles/Vol] 26 mmol/L 22 - 32 mmol/L [facility] Creatinine [Mass/Vol] 1.18 mg/dL 0.60 - 1.30 mg/dL [facility] Comment on above: METHOD TRACEABLE TO [facility] STANDARD eGFR (CKD-EPI)non-race dependent 75 - PINF [facility] Comment on above: Reported eGFR is based on the CKD-EPI 2020 equation that does not use a race coefficient. Glucose [Mass/Vol] 92 mg/dL 65 - 99 mg/dL [facility] Potassium [Moles/Vol] 4.1 mmol/L 3.5 - 5.0 mmol/L [facility] Protein [Mass/Vol] 6.8 g/dL 6.0 - 8.0 g/dL [facility] Sodium [Moles/Vol] 142 mmol/L 134 - 146 mmol/L [facility] Urea nitrogen [Mass/Vol] 23 mg/dL 5 - 23 mg/dL [facility] MAGNESIUMon 08-30-2023 Magnesium [Mass/Vol] 1.7 mg/dL Low 1.8-2.6 [facility] Comment on above: Performed By: #### C , 98327-0 #### [facility] ([id number]) [address] [place] [address], [address] [place] [address] Magnesiumon 08-30-2023 Magnesium [Mass/Vol] 1.7 mg/dL Low 1.8 - 2 .6 mg/dL [facility] No Panel Informationon 08-29 Interpretation and review of laboratory results Abnormal [facility] COVID Quick Testingon 2021 Result Negative [employer] Other COMPREHENSIVE METABOLIC PANE Clint 06-02-2021 Albumin [Mass/Vol] 4.2 g/dL Normal 3.6-5.1 [facility] Comment on above: Performed By: #### 1 0231, 7600 #### [facility] [place] [address] Salon Designer: Curtis Doan MD Albumin/Globulin [Mass ratio] 1.6 {ratio} Normal 1.0-2.5 [facility] Comment on above: Performed By: #### 1 0231, 7600 #### [facility] of [address], [address] [place] [address] Salon Designer: Curtis Doan MD ALP [Catalytic activity/Vol] 44 U/L Normal 36-130 [facility] Comment on above: Performed By: #### 1 0231, 7600 #### [facility] [place] [address] Salon Designer: Curtis Doan MD ALT [Catalytic activity/Vol] 17 U/L Normal 9-46 [facility] Comment on above: Performed By: #### 1 023, 7600 #### [facility] [place] [address] Salon Designer: Curtis Doan MD AST [Catalytic activity/Vol] 17 U/L Normal 10-40 [facility] Comment on above: Performed By: #### 1 0231, 7600 #### [facility] of [address], [address] [place] [address] Salon Designer: Curtis Doan MD Bilirubin [Mass/Vol] 0.3 mg/dL Normal 0.2-1.2 [facility] Comment on above: Performed By: #### 1 0231, 7600 #### [facility] [place] [address] Salon Designer: Curtis Doan MD Calcium [Mass/Vol] 9.6 mg/dL Normal 8.6-10.3 [facility] Comment on above: Performed By: #### 1 0231, 7600 #### [facility] of [address], [address] [place] [address] Salon Designer: Curtis Doan MD Chloride [Moles/Vol] 107 mmol/L Normal 98-110 [facility] Comment on above: Performed By: #### 1 0231, 7600 #### [facility] of [address], [address] [place] [address] Salon Designer: Curtis Doan MD CO2 [Moles/Vol] 26 mmol/L Normal 20-32 [facility] Comment on above: Performed By: #### 1 023, 7600 #### [facility] of [address], [address] [place] [address] Salon Designer: Curtis Doan MD Creatinine [Mass/Vol] 0.89 mg/dL Normal 0.60-1.35 [facility] Comment on above: Performed By: #### 1 023, 7600 #### [facility] of [place] [address] Salon Designer: Curtis Doan MD eGFR NON-AFR. CITIZEN OF [place] 101 mL/min/1.73m2 Normal > OR = 60 [facility] Comment on above: Performed By: #### 1 023, 0 #### [facility] of [place] [address] Salon Designer: Curtis Doan MD GFR/1.73 sq M.predicted among blacks MDRD (S/P/Bld) [Vol rate/Area] 117 mL/min/{1.73_m2} Normal > OR = 60 [facility] Comment on above: Performed By: #### 1 023, 7600 #### [facility] of [place] [address] Salon Designer: Curtis Doan MD Globulin (S) [Mass/Vol] 2.7 g/dL Normal 1.9-3.7 [facility] Comment on above: Performed By: #### 1 023, 7600 #### [facility] of [place] [address] Salon Designer: Curtis Doan MD Glucose [Mass/Vol] 103 mg/dL Normal 65-139 [facility] Comment on above: Result Comment: Non-fasting reference interval For someone without known diabetes, a glucose value between 100 and 125 mg/dL is consistent with prediabetes and should be confirmed with a follow-up test. Performed By: #### 1 023, 7600 #### [facility] [place] [address] Salon Designer: Curtis Doan MD Potassium [Moles/Vol] 4.1 mmol/L Normal 3.5-5.3 [facility] Comment on above: Performed By: #### 1 023, 7600 #### [facility] [place] [address] Salon Designer: Curtis Doan MD Protein [Mass/Vol] 6.9 g/dL Normal 6.1-8.1 [facility] Comment on above: Performed By: #### 1 023, 7600 #### [facility] [place] [address] Salon Designer: Curtis Doan MD Sodium [Moles/Vol] 140 mmol/L Normal 135-146 [facility] Comment on above: Performed By: #### 1 023, 7600 #### [facility] [place] [address] Salon Designer: Curtis Doan MD Urea nitrogen [Mass/Vol] 27 mg/dL High 7-25 [facility] Comment on above: Performed By: #### 1 023, 7600 #### [facility] [place] [address] Salon Designer: Curtis Doan MD Urea nitrogen/Creatinine [Mass ratio] 30 mg/mg High 6-22 [facility] Comment on above: Performed By: #### 1 023, 7600 #### [facility] [place] [address] Salon Designer: Curtis Doan MD LIPID PANEL, [facility] 12-2 Cholesterol [Mass/Vol] 123 mg/dL Normal <200 [facility] Comment on above: Order Comment: FASTI NG:NO FASTING: NO Performed By: #### 1 0231, 7600 #### [facility] [address], [address] [place] [address] Salon Designer: Curtis Doan MD Cholesterol in HDL [Mass/Vol] 29 mg/dL Low > OR = 40 [facility] Comment on above: Order Comment: FASTI NG:NO FASTING: NO Performed By: #### 1 0231, 7600 #### [facility] [address], [address] [place] [address] Salon Designer: Curtis Doan MD Cholesterol in LDL [Mass/Vol] [...] LDL-C. Noman SS et al. EARNESTINE. 2013;310(19): 0131-5512 (http://education.[email or web address].WellApps/faq/AOH955) Performed By: #### 1 0231, 0 #### [facility] [address], [address] [place] [address] Salon Designer: Curtis Doan MD Cholesterol.total/Ch olesterol in HDL [Mass ratio] 4.2 {ratio} Normal <5.0 [facility] Comment on above: Order Comment: FASTI NG:NO FASTING: NO Performed By: #### 1 0231, 7600 #### [facility] [address], [address] [place] [address] Salon Designer: Curtis Doan MD NON HDL CHOLESTEROL 94 mg/dL (calc) Normal <130 [facility] Comment on above: Order Comment: FASTI NG:NO FASTING: NO Result Comment: For patients with diabetes plus 1 major ASCVD risk factor, treating to a non-HDL-C goal of <100 mg/dL (LDL-C of <70 mg/dL) is considered a therapeutic option. Performed By: #### 1 0231, 7600 #### [facility] [address], [address] [place] [address] Salon Designer: Curtis Doan MD Triglyceride [Mass/Vol] 397 mg/dL High <150 [facility] Comment on above: Order Comment: FASTI NG:NO FASTING: NO Result Comment: If a non-fasting specimen was collected, consider repeat triglyceride testing on a fasting specimen if clinically indicated. Alex et al. J. of Clin. Lipidol. 2015;9:129-169. Performed By: #### 1 0231, 0 #### [facility] [address], [address] [place] [address] Salon Designer: Curtis Doan MD CBC AUTO DIFFon 05-15-2021 BASO # 0.0 103/ul Normal 0.0-0.1 [facility] Comment on above: Performed By: #### C BC #### [facility] [address] [place] [address] Dr. Diego Covarrubias Basophils/100 WBC (Bld) 0.5 % Normal 0.2-2.0 [facility] Comment on above: Performed By: #### C BC #### [facility] [address] [place] [address] Dr. Diego Covarrubias EO # 0.1 103/ul Normal 0.0-0.7 [facility] Comment on above: Performed By: #### C BC #### [facility] [address] [place] [address] Dr. Diego Covarrubias Eosinophils/100 WBC (Bld) 1.5 % Normal 0.9-7.0 [facility] Comment on above: Performed By: #### C BC #### [facility] [address] [place] [address] Dr. Diego Covarrubias Erythrocyte distribution width (RBC) [Ratio] 12.6 % Normal 11.0-15.0 [facility] Comment on above: Performed By: #### C BC #### [facility] [address] [place] [address] Dr. Diego Covarrubias Hematocrit (Bld) [Volume fraction] 41.9 % Critically low 42.0-54.0 [facility] Comment on above: Performed By: #### C BC #### [facility] [address] [place] [address] Dr. Diego Covarrubias Hemoglobin (Bld) [Mass/Vol] 14.2 g/dL Normal 14.0-18.0 [facility] Comment on above: Performed By: #### C BC #### [facility] [address] [place] [address] Dr. Diego Covarrubias IG # 0.03 10e3/ul Normal 0.00-0.03 [facility] Comment on above: Performed By: #### C BC #### [facility] [address] [place] [address] Dr. Diego Covarrubias IG % 0.5 % Normal 0.0-0.5 [facility] Comment on above: Performed By: #### C BC #### [facility] [address] [place] [address] Dr. Diego Covarrubias LYMPH # 2.0 103/ul Normal 1.2-3.8 [facility] Comment on above: Performed By: #### C BC #### [facility] [address] [place] [address] Dr. Diego Covrarubias Lymphocytes/100 WBC (Bld) 32.1 % Normal 20.5-60.0 [facility] Comment on above: Performed By: #### C BC #### [facility] [address] [place] [address] Dr. Diego Covarrubias MANUAL DIFF REQ NO Normal [facility] Comment on above: Performed By: #### C BC #### [facility] [address] [place] [address] Dr. Diego Covarrubias MCH (RBC) [Entitic mass] 31.5 pg Normal 25.9-34.0 [facility] Comment on above: Performed By: #### C BC #### [facility] [address] [place] [address] Dr. Diego Covarrubias MCHC (RBC) [Mass/Vol] 33.9 g/dL Normal 29.9-35.2 [facility] Comment on above: Performed By: #### C BC #### [facility] [address] [place] [address] Dr. Diego Covarrubias MCV (RBC) [Entitic vol] 92.9 fL Normal 80.0-94.0 [facility] Comment on above: Performed By: #### C BC #### [facility] [address] [place] [address] Dr. Diego Covarrubias MONO # 0.8 103/ul Normal 0.3-0.8 [facility] Comment on above: Performed By: #### C BC #### [facility] [address] [place] [address] Dr. Diego Covarrubias Monocytes/100 WBC (Bld) 13.5 % Critically high 1.7-12.0 [facility] Comment on above: Performed By: #### C BC #### [facility] [address] [place] [address] Dr. Diego Covarrubias NEUT # 3.2 103/ul Normal 1.4-6.5 [facility] Comment on above: Performed By: #### C BC #### [facility] [address] [place] [address] Dr. Diego Covarrubias Neutrophils/100 WBC (Bld) 51.9 % Normal 43.0-75.0 [facility] Comment on above: Performed By: #### C BC #### [facility] [address] [place] [address] Dr. Diego Covarrubias Platelet mean volume (Bld) [Entitic vol] 9.6 fL Normal 9.5-13.5 [facility] Comment on above: Performed By: #### C BC #### [facility] [address] [place] [address] Dr. Diego Covarrubias PLT 244 103/ul Normal 150-450 [facility] Comment on above: Performed By: #### C BC #### [facility] [address] [place] [address] Dr. Diego Covarrubias RBC 4.51 106/ul Critically low 4.70-6.10 [facility] Comment on above: Performed By: #### C BC #### [facility] [address] [place], [place] [address] Dr. Diego Covarrubias WBC 6.2 103/ul Normal 4.0-11.0 [facility] Comment on above: Performed By: #### C BC #### [facility] [address] [place], [place] [address] SINUS WO CONTRASTon [...] recommended.Electronic ally signed by: JORGITO FREITAS, Normal [facility] Initial Visit (Otolaryngolog y)on 11-21-2017 Initial Visit (Otolaryngology) Chief ComplaintThirebeca is a new patient that is here for possible deviated septum History of Present IllnessMar Med is here for a new patient consultation for his chronic sinus infections. He was referred by Dr. Garcia at [facility]. Pt reports repeat sinus infections. Jorgito [...] BusPIRone HCl - 15 MG Oral Tablet;Therapy: [id number] to Recorded Dispense: 0 Days ; #: Sufficient Tablet; Refill: 0; ELENITA = N; Record; Last Updated By: Amisha Matias; 11/09/2017 1:27:18 PM Vitals Vital Signs Recorded: 09Nov2017 01:98NIJlegqn8 ft 7 [id number] lb BMI Segpdvxlnl39.75BSA Calculated2.19 Physical ExamPhysical Examination:A detailed examination of [...] concerned about his sinuses. ProcedureNASAL ENDOSCOPY (CPT 47688):To better evaluate the patient's symptoms sinonasal endoscopy [...] CT Sinus without Contrast; Status:Active; Requested for:23Nov2017; Perform:[facility];Ordered; For:Chronic sinusitis; Ordered By:Christina Apodaca;Reason: Unspecified for CT Sinus without ContrastRadiologist to Determine Optimal Study : YRequesting physician's phone/pager number? : [phone] Alerts (ie: MRSA, TB, Diabetic) : diabeticWhat [...] MedsBusPIRone HCl - 15 MG Oral Tablet;Therapy: [id number] to Recorded Signatures Electronically signed by : Christina Apodaca MD; Nov 21 2017 7:37AM EST (Author) Normal [facility] Vital Signs Date Time Vital Sign Value Performing Clinician Facility 07-27-2024 11:22-0500 Body height 166.1 cm Shahbaz [employer] Work Phone: [facility] 07-27-2024 11:22-0500 Body mass index (BMI) [Ratio] 37.12 kg/m2 [facility] [employer] [facility] 07-27-2024 11:22-0500 Body temperature 98.1 [degF] Shahbaz [employer] Work Phone: [facility] 07-27-2024 11:22-0500 Body weight 102.42 kg [employer] Work Phone: [facility] 07-27-2024 11:22-0500 Diastolic blood pressure 84 mm[Hg] Shahbaz [employer] [facility] 07-27-2024 11:22-0500 Heart rate 112 /min [employer] Work Phone: [facility] 07-27-2024 11:22-0500 Respiratory rate 18 /min [employer] Work Phone: [facility] 07-27-2024 11:22-0500 SaO2% (BldA) [Mass fraction] 98 % [facility] [facility] 07-27-2024 11:22-0500 Systolic blood pressure 118 mm[Hg] Shahbaz Furlong DO Work Phone: [facility] 05-24-2024 09:09-0500 Blood Pressure Location Kiarra Galea [facility] 05-24-2024 09:09-0500 Diastolic blood pressure 88 mm[Hg] Kiarra Galea [facility] 05-24-2024 09:09-0500 Heart rate 76 /min Kiarra Galea [facility] 05-24-2024 09:09-0500 Systolic blood pressure 138 mm[Hg] Kiarra Galea [facility] 04-03-2024 16:38-0400 Body height 165.1 cm Shahbaz Furlong DO Work Phone: [facility] 04-03-2024 16:38-0400 Body mass index (BMI) [Ratio] 36.94 kg/m2 Shahbaz Furlong DO Work Phone: [facility] 04-03-2024 16:38-0400 Body temperature 98.1 [degF] Shahbaz Furlong DO Work Phone: [facility] 04-03-2024 16:38-0400 Body weight 100.7 kg Shahbaz Furlong DO Work Phone: [facility] 04-03-2024 16:38-0400 Diastolic blood pressure 68 mm[Hg] Shahbaz Furlong DO Work Phone: [facility] 04-03-2024 16:38-0400 Heart rate 83 /min Shahbaz Furlong DO Work Phone: [facility] 04-03-2024 16:38-0400 Respiratory rate 18 /min Shahbaz Furlong DO Work Phone: [facility] 04-03-2024 16:38-0400 SaO2% (BldA) [Mass fraction] 97 % Shahbaz Furlong DO Work Phone: [facility] 04-03-2024 16:38-0400 Systolic blood pressure 110 mm[Hg] Shahbaz Furlong DO Work Phone: [facility] 03-01-2024 15:10-0400 Blood Pressure Location Kiarra Galea [facility] 03-01-2024 15:10-0400 Body temperature 98.6 [degF] Kiarra Galea [facility] 03-01-2024 15:10-0400 Diastolic blood pressure 85 mm[Hg] Kiarra Galea [facility] 03-01-2024 15:10-0400 Heart rate 69 /min Kiarra Galea [facility] 03-01-2024 15:10-0400 Respiratory rate 17 /min Kiarra Galea [facility] 03-01-2024 15:10-0400 Systolic blood pressure 121 mm[Hg] Kiarra Galea [facility] 02-23-2024 10:08-0400 Blood Pressure Location Kiarra Galea [facility] 02-23-2024 10:08-0400 Diastolic blood pressure 88 mm[Hg] Kiarra Galea [facility] 02-23-2024 10:08-0400 Heart rate 82 /min Kiarra Min [facility] 02-23-2024 10:08-0400 Systolic blood pressure 134 mm[Hg] Kiarra Chungea [facility] 01-19-2024 15:25-0400 Body height 165.1 cm Jorge Gibbs CONTROL PANEL ASSEMBLER-ELECTRIC BRAIN WAVE EQUIPMENT MECHANIC Work Phone: [facility] 01-19-2024 15:25-0400 Body mass index (BMI) [Ratio] 37.67 kg/m2 Jorge Christopher CONTROL PANEL ASSEMBLER-ELECTRIC BRAIN WAVE EQUIPMENT MECHANIC Work Phone: [facility] 01-19-2024 15:25-0400 Body temperature 98.01 [degF] Jorgeany Gibbs CONTROL PANEL ASSEMBLER-ELECTRIC BRAIN WAVE EQUIPMENT MECHANIC Work Phone: [facility] 01-19-2024 15:25-0400 Body weight 102.69 kg Jorge Gibbs CONTROL PANEL ASSEMBLER-ELECTRIC BRAIN WAVE EQUIPMENT MECHANIC [facility] [facility] 01-19-2024 15:25-0400 Diastolic blood pressure 70 mm[Hg] Jorge Gibbs CONTROL PANEL ASSEMBLER-ELECTRIC BRAIN WAVE EQUIPMENT MECHANIC Work Phone: [facility] [facility] 01-19-2024 15:25-0400 Heart rate 112 /min Jorge Gibbs CONTROL PANEL ASSEMBLER-ELECTRIC BRAIN WAVE EQUIPMENT MECHANIC Work Phone: [facility] 01-19-2024 15:25-0400 SaO2% (BldA) [Mass fraction] 97 % Jorgeany Gibbs CONTROL PANEL ASSEMBLER-ELECTRIC BRAIN WAVE EQUIPMENT MECHANIC Work Phone: [facility] [facility] 01-19-2024 15:25-0400 Systolic blood pressure 124 mm[Hg] Jorge Gibbs CONTROL PANEL ASSEMBLER-ELECTRIC BRAIN WAVE EQUIPMENT MECHANIC Work Phone: [facility] [employer] [facility] 01-02-2024 16:09-0400 Body height 165.1 cm Shahbaz Mancini DO Work Phone: [facility] 01-02-2024 16:09-0400 Body mass index (BMI) [Ratio] 38.31 kg/m2 Shahbaz Furlong DO Work Phone: [facility] 01-02-2024 16:09-0400 Body temperature 98.4 [degF] Shahbaz Furlong DO Work Phone: [facility] 01-02-2024 16:09-0400 Body weight 104.42 kg Shahbaz Furlong DO Work Phone: [facility] [facility] 01-02-2024 16:09-0400 Diastolic blood pressure 80 mm[Hg] Shahbaz Furlong DO Work Phone: [facility] 01-02-2024 16:09-0400 Heart rate 95 /min Shahbaz Furlong DO Work Phone: [facility] 01-02-2024 16:09-0400 SaO2% (BldA) [Mass fraction] 98 % Shahbaz Furlong DO Work Phone: [facility] 01-02-2024 16:09-0400 Systolic blood pressure 120 mm[Hg] Shahbaz Furlong DO Work Phone: [facility] 10-10-2023 16:11-0400 Body height 165.1 cm Josie Grande APRN-FLUME MAKER Work Phone: [facility] 10-10-2023 16:11-0400 Body mass index (BMI) [Ratio] 39.8 kg/m2 Josie Grande APRN-FLUME MAKER Work Phone: [facility] 10-10-2023 16:11-0400 Body temperature 98.1 [degF] Josie Grande APRN-FLUME MAKER Work Phone: [facility] 10-10-2023 16:11-0400 Body weight 108.5 kg Josie Grande APRN-FLUME MAKER Work Phone: [facility] 10-10-2023 16:11-0400 Diastolic blood pressure 80 mm[Hg] Josie Grande CONTROL PANEL ASSEMBLER-FLUME MAKER Work Phone: [facility] 10-10-2023 16:11-0400 Heart rate 100 /min Josie Grande APRN-FLUME MAKER Work Phone: [facility] 10-10-2023 16:11-0400 Respiratory rate 18 /min Josie Grande CONTROL PANEL ASSEMBLER-FLUME MAKER Work Phone: [facility] 10-10-2023 16:11-0400 SaO2% (BldA) [Mass fraction] 96 % Josie Grande CONTROL PANEL ASSEMBLER-FLUME MAKER Work Phone: [facility] 10-10-2023 16:11-0400 Systolic blood pressure 110 mm[Hg] Josie Grande APRN-FLUME MAKER Work Phone: [facility] 08-30-2023 15:51-0400 Body height 165.1 cm Josie Grande APRN-FLUME MAKER Work Phone: [facility] 08-30-2023 15:51-0400 Body mass index (BMI) [Ratio] 40 kg/m2 Josie Grande APRN-FLUME MAKER Work Phone: [facility] 08-30-2023 15:51-0400 Body temperature 98.1 [degF] Josie Grande APRN-FLUME MAKER Work Phone: [facility] 08-30-2023 15:51-0400 Body weight 109.05 kg Josie Grande CONTROL PANEL ASSEMBLER-FLUME MAKER Work Phone: [facility] 08-30-2023 15:51-0400 Diastolic blood pressure 70 mm[Hg] Josie Grande APRN-FLUME MAKER Work Phone: [facility] 08-30-2023 15:51-0400 Heart rate 107 /min Josie Grande APRN-FLUME MAKER Work Phone: [facility] 08-30-2023 15:51-0400 Respiratory rate 18 /min Josie CANOP Work Phone: [facility] 08-30-2023 15:51-0400 SaO2% (BldA) [Mass fraction] 98 % Josie HANDFLUME MAKER Work Phone: [facility] 08-30-2023 15:51-0400 Systolic blood pressure 120 mm[Hg] Josie CANOP Work Phone: [facility] 08-04-2023 14:27-0500 Body height 165.1 cm Shahbaz Furlong DO Work Phone: [facility] 08-04-2023 14:27-0500 Body mass index (BMI) [Ratio] 40.25 kg/m2 Shahbaz Furlong DO Work Phone: [facility] 08-04-2023 14:27-0500 Body temperature 98.6 [degF] Shahbaz Furlong DO Work Phone: [facility] 08-04-2023 14:27-0500 Body weight 109.72 kg Shahbaz Furlong DO Work Phone: [facility] 08-04-2023 14:27-0500 Diastolic blood pressure 68 mm[Hg] Shahbaz Furlong DO Work Phone: [facility] 08-04-2023 14:27-0500 Heart rate 100 /min Shahbaz Furlong DO Work Phone: [facility] 08-04-2023 14:27-0500 SaO2% (BldA) [Mass fraction] 97 % Shahbaz Furlong DO Work Phone: [facility] 08-04-2023 14:27-0500 Systolic blood pressure 110 mm[Hg] Shahbaz Furlong DO Work Phone: [facility] 06-21-2023 16:30-0500 Body height 165.1 cm Josie Kuns CONTROL PANEL ASSEMBLER-FLUME MAKER Work Phone: [facility] 06-21-2023 16:30-0500 Body mass index (BMI) [Ratio] 39.51 kg/m2 Josie Grande APRN-FLUME MAKER [facility] 06-21-2023 16:30-0500 Body temperature 98.29 [degF] Josie Grande APRN-FLUME MAKER [facility] 06-21-2023 16:30-0500 Body weight 107.68 kg Josie Grande APRN-FLUME MAKER [facility] 06-21-2023 16:30-0500 Diastolic blood pressure 66 mm[Hg] Josie Grande APRN-FLUME MAKER [facility] 06-21-2023 16:30-0500 Heart rate 98 /min Josie HANDFLUME MAKER Work Phone: [facility] 06-21-2023 16:30-0500 SaO2% (BldA) [Mass fraction] 95 % Josie Grande APRN-FLUME MAKER [facility] 06-21-2023 16:30-0500 Systolic blood pressure 102 mm[Hg] Josie Grande APRN-FLUME MAKER Work Phone: [facility] 06-16-2021 11:30-0500 Body height 167.64 cm Kendy Patino Other [employer] Other 06-16-2021 11:30-0500 Body mass index (BMI) [Ratio] 36.31 kg/m2 Kendy Patino Other [facility] Other 06-16-2021 11:30-0500 Body temperature 98.6 [degF] Kendy Patino Other [facility] Other 06-16-2021 11:30-0500 Body weight 102.06 kg Kendy Patino Other [facility] Other 06-16-2021 11:30-0500 Respiratory rate 20 /min Kendy Patino Other [facility] Other 06-16-2021 11:30-0500 SaO2% (BldA) [Mass fraction] 98 % Kendy Patino Other [facility] Other Encounters Encounter Date Encounter Type Care Provider Facility Start: 10-04-2024 ambulatory Kiarra Min Facility :[facility] Start: 08-27-2024 End: 08-27-2024 Refill [facility]fer [facility] Start: 08-20-2024 End: 08-20-2024 ambulatory [facility] Start: 08-11-2024 End: 08-11-2024 Orders Only Shahbaz [...] Start: 07-27-2024 End: 07-27-2024 [facility] [facility] Start: 06-26-2024 End: 06-27-2024 Telephone encounter [facility] Start: 05-31-2024 End: 05-31-2024 ambulatory [facility] Start: 05-28-2024 End: 05-28-2024 ambulatory [facility] Start: 05-28-2024 Encounter for genera l adult medical examination without abnormal findings JOSIE GRANDE [facility] Start: 05-28-2024 End: 05-28-2024 ambulatory [facility] Start: 05-28-2024 Encounter for genera l adult medical examination without abnormal findings [facility] Start: 05-24-2024 End: 05-24-2024 ambulatory Kiarra Stalin Chungea [place] Start: 05-24-2024 End: 05-24-2024 Lab Drop off Kiarra Stalin Chungea [facility] Start: 05-24-2024 End: 05-24-2024 ambulatory Kiarra J Galea Facility:[facility] Start: 05-24-2024 End: 05-24-2024 Patient encounter procedure Kiarra Stalin Chungea [facility] Start: 04-29-2024 End: 04-29-2024 Refill Shahbaz Mancini [...] (BMI) of 36.0 to 36.9 in adult ([facility]); Essential hypertension; Other fatigue Start: 04-03-2024 End: 04-03-2024 ambulatory [facility] Start: 03-01-2024 End: 03-01-2024 ambulatory Kiarra J Galea Facility:[facility] Start: 03-01-2024 End: 03-01-2024 Patient encounter procedure Kiarra Stalin Galea [facility] Start: 02-23-2024 End: 02-23-2024 ambulatory Kiarra J Galea [facility] Start: 02-23-2024 End: 02-23-2024 Lab Drop off Kiarra J Galea [facility] Start: 02-23-2024 End: 02-23-2024 ambulatory Kiarra J Galea Facility:[facility] Start: 02-23-2024 End: 02-23-2024 Patient encounter procedure Kiarra J Galea [facility] Start: 02-16-2024 End: 02-17-2024 Refill Kaila Beck CMA [facility] Comment on above: Lumbar disc prolapse with compression radiculopathy Start: 02-09-2024 End: 02-09-2024 Refill Shahbaz Mancini DO Work Phone: [facility] Comment on above: Spondylolisthesis, l umbar region Start: 01-25-2024 ambulatory Kiarra Galea Facility:[facility] Start: 01-20-2024 End: 01-20-2024 Orders Only Jorge Gibbs CONTROL PANEL ASSEMBLER-ELECTRIC BRAIN WAVE EQUIPMENT MECHANIC Work Phone: [facility] Comment on above: Right ureteral stone (Primary Dx) Start: 01-19-2024 End: 01-19-2024 Office outpatient visit 15 minutes Jorge Gibbs CONTROL PANEL ASSEMBLER-ELECTRIC [employer]RAIN WAVE EQUIPMENT MECHANIC Work Phone: [facility] Comment on above: Right ureteral stone (Primary Dx); Fatty liver Start: 01-19-2024 End: 01-19-[address] [facility] Start: 01-02-2024 End: 01-02-2024 Office outpatient visit 25 minutes Shahbaz Mancini DO Work Phone: [facility] Comment on above: Lumbar disc prolapse with compression radiculopathy (Primary Dx); Class 2 severe obesity due to excess calories with serious comorbidity and body mass index (BMI) of 39.0 to 39.9 in adult [place] Lipoma, unspecified site Start: 01-02-2024 End: 01-02-2024 [facility] Start: 11-08-2023 End: 11-10-2023 Telephone encounter Jennyfer Morse CMA [facility] Comment on above: Med Refill Start: 10-30-2023 End: 10-30-2023 Refill Shahbazrajat Arthurnicolasleon DO Work Phone: [facility] Comment on above: Essential (primary) hypertension; Urinary urgency Start: 10-10-2023 End: 10-10-2023 Office outpatient visit 15 minutes Josie Guzmán Veronica YIP-FLUME MAKER [facility] Comment on above: Morbid obesity ([facility]) (Primary Dx); Abdominal bloating Start: 10-10-2023 End: 10-10-2023 ambulatory BARRE[facility] Start: 09-12-2023 Orders Only Shahbaz quintero DO Work Phone: [facility] Start: 08-31-2023 Orders Only Josie Grande CONTROL PANEL ASSEMBLER-FLUME MAKER Work Phone: [facility] Comment on above: Hypomagnesemia (Prim yudy Dx) Start: 08-30-2023 End: 08-30-2023 ambulatory [facility] Start: 08-30-2023 End: 08-30-2023 Office outpatient visit 25 minutes Josie Grande CONTROL PANEL ASSEMBLER-FLUME MAKER Work Phone: [facility] Comment on above: Acute kidney injury (nontraumatic) ([facility] (Primary Dx); Hypomagnesemia; Essential hypertension; Morbid obesity [place] Start: 08-30-2023 End: 08-30-2023 ambulatory [facility] Start: 08-13-2023 Refill Shahbaz Alfonso ng DO Work Phone: [facility] Comment on above: Essential (primary) hypertension Start: 08-12-2023 Refill Shahbaz Alfonso ng DO Work Phone: [facility] Comment on above: Urinary urgency Start: 08-04-2023 End: 08-04-2023 Office outpatient visit 25 minutes Shahbaz Mancini DO Work Phone: [facility] Comment on above: Morbid obesity ([facility]) (Primary Dx); Lumbar disc prolapse with compression radiculopathy; Left lateral epicondylitis; Essential hypertension; Spondylolisthesis, lumbar region; Pre-diabetes Start: 08-04-2023 End: 08-04-2023 ambulatory [facility] Start: 07-28-2023 Refill Shahbaz Alfnoso ng DO Work Phone: [facility] Comment on above: Urinary urgency Start: 07-08-2023 Refill Kaila Beck [facility] Comment on above: Essential (primary) hypertension Start: 07-04-2023 Telephone encounter Shahbaz menjivar DO Work Phone: [facility] Start: 06-21-2023 End: 06-21-2023 Office outpatient visit 15 minutes Josie Grande CONTROL PANEL ASSEMBLER-FLUME MAKER Work Phone: [facility] Comment on above: Lateral epicondyliti s of left elbow (Primary Dx) Start: 12-03-2021 End: 12-04-[address] SHAHBAZ MANCINI Facility:[facility] Start: 06-16-2021 End: 06-16-2021 ambulatory [address] Patino [facility] Other Start: 06-16-2021 Office outpatient vi sit 15 minutes Kendy Patino [facility] Start: 05-21-2021 Encounter for preprocedural cardiovascular examination DR DOCTOR NGUYEN [facility] Start: 05-21-2021 Encounter for preprocedural laboratory examination DR DOCTOR NGUYEN [facility] Start: 05-15-2021 End: 05-16-[address] DOCTOR NGUYEN Facility:[facility] Start: 05-15-2021 End: 05-16-2021 Encounter for preprocedural laboratory examination DR DOCTOR NGUYEN Facility:[facility] Start: 02-19-2021 End: 02-19-[address] SHAHBAZ MANCINI Facility:[facility] Start: 11-23-2017 Ambulatory Christina Apodaca Fac ility:[facility] Start: 11-09-2017 Ambulatory Christina Apodaca Fac ility:[id number] Procedures Date Procedure Procedure Detail Performing Clinician Start: 05-28-2024 Adult depression scr eening assessment Kaila Beck CMA Start: 04-03-2024 Adult depression scr eening assessment Shahbaz Furlong DO Work Phone: Start: 01-02-2024 Adult depression scr eening assessment Shahbaz Furlong DO Work Phone: Start: 10-10-2023 Adult depression scr eening assessment Josie Grande CONTROL PANEL ASSEMBLER-FLUME MAKER Work Phone: Start: 08-30-2023 Follow-up visit Follow-up JOSIE GRANDE Start: 08-30-2023 Adult depression scr eening assessment Josie Grande CONTROL PANEL ASSEMBLER-FLUME MAKER Work Phone: Start: 08-04-2023 Adult depression scr eening assessment Shahbaz Furlong DO Work Phone: Start: 06-21-2023 Adult depression scr eening assessment Josie Grande CONTROL PANEL ASSEMBLER-FLUME MAKER Work Phone: Start: 11-25-2014 Total replacement of left hip joint Kiarra Min Plan of Treatment Date Care Activity Detail Author Start: 02-11-2030 DTaP,Tdap and Td Vac cines (3 - Td or Tdap) DTaP,Tdap and Td Vaccines (3 - Td or Tdap) [facility] Start: 07-27-2025 Adult BMI Screening Adult BMI Screen ing [facility] Start: 07-27-2025 Tobacco Screening Tobacco Screening [facility] Start: 05-28-2025 Adult BMI Screening Adult BMI Screen ing [facility] Start: 05-28-2025 Depression Screening Depression Scre ening [facility] Start: 05-28-2025 Tobacco Screening Tobacco Screening [facility] Start: 04-03-2025 Adult BMI Screening Adult BMI Screen ing [facility] Start: 04-03-2025 Depression Screening Depression Scre ening [facility] Start: 04-03-2025 Tobacco Screening Tobacco Screening [facility] Start: 01-18-2025 Adult BMI Screening Adult BMI Screen ing [facility] Start: 01-18-2025 Tobacco Screening Tobacco Screening [facility] Start: 01-01-2025 Adult BMI Screening Adult BMI Screen ing [facility] Start: 01-01-2025 Depression Screening Depression Scre ening [facility] Start: 01-01-2025 Tobacco Screening Tobacco Screening [facility] Start: 10-09-2024 Adult BMI Screening Adult BMI Screen ing [facility] Start: 10-09-2024 Depression Screening Depression Scre ening [facility] Start: 10-09-2024 Tobacco Screening Tobacco Screening [facility] Start: 09-13-2024 End: 09-13-2024 Patient encounter procedure 09/13/2024 4:15 PM EDT Office Visit [facility] [address] [place] [address] Shahbaz Mancini, [address], [place] [address] [facility] Start: 08-29-2024 Adult BMI Screening Adult BMI Screen ing [facility] Start: 08-29-2024 Depression Screening Depression Scre ening [facility] Start: 08-29-2024 Tobacco Screening Tobacco Screening [facility] Start: 08-28-2024 End: 08-28-2024 Patient encounter procedure 08/28/2024 3:30 PM EDT Office Visit [facility] [address] [place] [address] Shahbaz Mancini DO [address], [place] [address] [facility] Start: 08-28-2024 Screening for malign ant neoplasm of colon Colon Cancer Screening 3 Year Cologuard [facility] Start: 08-04-2024 Adult BMI Screening Adult BMI Screen ing [facility] Start: 08-04-2024 Depression Screening Depression Scre ening [facility] Start: 08-04-2024 Tobacco Screening Tobacco Screening [facility] Start: 06-21-2024 Adult BMI Screening Adult BMI Screen ing [facility] Start: 06-21-2024 Depression Screening Depression Scre ening [facility] Start: 06-21-2024 Tobacco Screening Tobacco Screening [facility] Start: 05-28-2024 End: 05-28-2024 Patient encounter procedure 05/28/2024 2:30 PM EST Office Visit [facility] [address] [place] [address] Shahbaz Mancini DO [address], [place] [address] [facility] Start: 04-03-2024 End: 04-03-2024 Patient encounter procedure 04/03/2024 4:30 PM EDT Office Visit [facility] [address] [place] [address] Shahbaz Mancini, DO [address], [place] [address] [facility] Start: 02-12-2024 Influenza vaccination Influenza Vacc ine [facility] Start: 01-02-2024 End: 01-02-2024 Patient encounter procedure 01/02/2024 4:15 PM EDT Office Visit [facility] - Family [facility] [address] [place] [address] Shahbaz Mancini, [address], [place] [address] [facility] Internal Medicine - Family [facility] Start: 11-03-2023 End: 11-03-2023 Patient encounter procedure 11/03/2023 4:10 PM EDT Office Visit [facility] [address] [place] [address] Shahbaz Mancini, [address], [place] [address] [facility] Internal Medicine - Family [facility] Start: 10-10-2023 End: 10-10-2023 Patient encounter procedure 10/10/2023 4:00 PM EDT Office Visit [facility] [address] [place] [address] Josie Grande APRN-FLUME MAKER [address] [place] [address] [facility] Start: 09-11-2023 Influenza vaccination Influenza Vacc ine [facility] Comment on above: Postponed from 02/11 (Patient Refused) Start: 08-04-2023 End: 08-04-2023 Patient encounter procedure 08/04/2023 2:20 PM EST [facility] [address] [place] [address] Shahbaz Mancini DO [address], [place] [address] [facility] Start: 2023 Administration of varicella zoster vaccine Zoster (Shingles) Vaccine (1 of 2) [facility] Start: 02-11-2023 Influenza vaccination Influenza Vacc ine [facility] Start: 1991 Adult BMI Follow Up Plan Adult BMI Follow Up Plan [facility] Immunizations Immunization Date Immunization Notes Care Provider Fa cility 02-12-2020 diphtheria, tetanus toxoids and pertussis vaccine Josie Grande CONTROL PANEL ASSEMBLER-FLUME MAKER Work Phone: [facility] 02-12-2020 tetanus toxoid, redu jackson diphtheria toxoid, and acellular pertussis vaccine, adsorbed Josie Grande CONTROL PANEL ASSEMBLER-FLUME MAKER Work Phone: [facility] 02-03-2018 hepatitis B vaccine, adult dosage Josie Grande CONTROL PANEL ASSEMBLER-FLUME MAKER Work Phone: [facility] 09-07-2017 hepatitis B vaccine, adult dosage Josie Grande CONTROL PANEL ASSEMBLER-FLUME MAKER Work Phone: [facility] 08-04-2017 hepatitis B vaccine, pediatric or pediatric/adolescent dosage Josie Grande CONTROL PANEL ASSEMBLER-FLUME MAKER Work Phone: [facility] Payers Date Payer Category Payer Managed Care, Other (non HMO) [employer] [id number] 2023 Managed Care Other (unspecified) [id number] PLAN [id number] 2023 Private Health Insurance [id number] 2023 Private Health Insurance [id number] 2023 Unknown [id number] 2012 Unknown FRONTPATH BENEFI T ASSISTANCE ERNESTO [id number] 2012-Present [phone] [address] [place] [address] [id number] 1973 Unknown [id number] 2.16.840.1.669435.3.579. 2.593 1973 Unknown [id number] 2.16.840.1.828753.3.579. 2.593 1973 Unknown [id number] 2.16.840.1.457615.3.579. 2.593 1973 Unknown [id number] 2.16.840.1.316720.3.579. 2.727 1973 Unknown [id number] 2.16.840.1.252204.3.579. 2.727 1973 Unknown [id number] 2.16.840.1.003798.3.579. 2.727 1973 Unknown [id number] 2.16.840.1.613066.3.579. 2.1286 1973 Unknown [id number] 2.16.840.1.319408.3.579. 2.1286 1973 Unknown [id number] 2.16.840.1.292479.3.579. 2.1285 1973 Unknown [id number] 2.16.840.1.321972.3.579. 2.1285 1973 Unknown [id number] 2.16.840.1.531469.3.579. 2.1285 1973 Unknown [id number] 2.16.840.1.700220.3.579. 2.1285 1973 Unknown [id number] 2.16.840.1.495184.3.579. 2.1285 1973 Unknown [id number] 2.16.840.1.989285.3.579. 2.1285 1973 Unknown [id number] 2.16.840.1.412958.3.579. 2.128 1973 Unknown [id number] 2.16.840.1.553753.3.579. 2.128 1973 Unknown [id number] 2.16.840.1.806544.3.579. 2.1285 1973 Unknown [id number] 2.16.840.1.764456.3.579. 2.727 1973 Unknown [id number] 2.16.840.1.787686.3.579. 2.727 1973 Unknown [id number] 2.16.840.1.493676.3.579. 2.727 1973 Unknown [id number] 2.16.840.1.880597.3.579. 2.727 1973 Unknown [id number] 2.16.840.1.177767.3.579. 2.196 1959 Unknown [id number] Self-pay Social History Date Type Detail Facility Start: 03-07-2023 End: 05-03-2023 Sex Assigned At [facility] Start: 03-01-2024 End: 05-24-2024 Tobacco smoking status Light tobacco smoker (finding) [facility] Start: 03-07-2023 End: 01-19-2024 Tobacco smoking status Ex-smoker (finding) [facility] Tobacco smoking status Never [facility] Start: 06-13-1989 End: 09-11-2022 History of tobacco use Current smoker [facility] Start: 06-13-1989 End: 09-11-2022 History of tobacco use Cigarette Smoker [facility] Start: 03-07-2023 End: 01-19-2024 Cigarettes smoked current (pack per day) - Reported 0.5 [facility] Start: 03-07-2023 End: 01-19-2024 Tobacco use and exposure Smokeless tobacco non-user [facility] Start: 05-28-2024 End: 07-27-2024 Alcoholic beverage intake Ex-drinker (finding) [facility] Has the [employer], or [employer] threatened to shut off services in your home in past 12Mo No [facility] Are you now , , , , never or living with a partner? [facility] How often to you hav e a drink containing alcohol? 2-4 times a month [facility] How many standard drinks containing alcohol do you have on a typical day? 1 or 2 [facility] How often do you hav e 6 or more drinks on 1 occasion? Never [facility] Do you feel stress - tense, restless, nervous, or anxious, or unable to sleep at night because your mind is troubled all the time - these days [OSQ] Not at all [facility] Start: 03-02-2022 Alcohol Comment Occasional 6 p ack once a month [facility] Start: 1975 Sex assigned at Not on file P [employer] [facility] Start: 01-16-2015 Sex Male (finding) [facility] Start: 06-21-2023 End: 08-04-2023 Alcohol intake Current drinker of alcohol (finding) [facility] Functional Status Date Assessment Result Facility 05-24-2024 Functional Status N/A [facility] 03-01-2024 Functional Status N/A [facility] 02-23-2024 Functional Status N/A [facility] Clinical Notes 02-19-2021 to 07-27-2024 Shahbaz Mancini, DO - 07/27/2024 11:15 AM ESTTelephone Encounter - Kaila Beck, COMPREHENSIVE ADVISOR - 06/26/2024 4:14 PM ESTTelephone Encounter - [...] Exam Vitals reviewed. Exam conducted with a debone supervisor present (Dat Amador MS3). Constitutional: General: He [...] the office today. documented in this encounter [facility] 06-26-2024 Miscellaneous Notes Patient came in and was wondering if he can get a refill on the wegovy through [facility] and he would like it increased if he can. Okay. Forms filled out to be faxed in documented in this encounter [facility] 06-26-2024 Telephone encounter Note Patient came in and was wondering if he can get a refill on the wegovy through [facility] and he would like it increased if he can. [facility] 06-26-2024 Telephone encounter Note Okay. Forms filled out to be faxed in [facility] 05-24-2024 Hospital Discharge instructions Patient Education [...] treatment? Where to find more information The [place] [employer]: www.cancer.org [employer] [employer]: www.auanet.org Contact a health care [...] provider. Document Revised: 11/23/2021 Document Reviewed: 11/23/2021 All Def Digital Patient Education 2023 [employer]. 05/24/2024 10:52:52 Prostate Cancer Screening Prostate Cancer [...] treatment? Where to find more information The [place] [employer]: www.cancer.org [place] [employer]: www.auanet.org Contact a health care [...] provider. Document Revised: 11/23/2021 Document Reviewed: 11/23/2021 [employer] Patient Education 2023 [employer]. 05/24/2024 10:52:36 Benign Prostatic Hyperplasia Benign Prostatic [...] urethra. Follow these instructions at home: Take qfbq-hmk-vmjmiwf and prescription medicines only as told by [...] provider. Document Revised: 12/16/2021 Document Reviewed: 12/16/2021 All [employer] Patient Education 2023 [employer]. Follow Up Care 02/23/2024 10:39:28 With:Kiarra Christiansen J, URL Address: When: Unknown Comments:F/U 3 months [facility] 05-24-2024 Note Patient Education Prostate [...] Where to find more information ??? The [place] [employer]: www.cancer.org ??? [employer] [employer]: www.auanet.org Contact a health care [...] gland is located (more content not included)... [facility] 04-[facility] History of Present illness Narrative [...] a sleep study done years ago at [facility] but it was okay. Part of the [...] track down the sleep study done at [facility] to see if he has sleep apnea [...] for muscle spasms. documented in this encounter [facility] 03-01-2024 Hospital Discharge instructions Patient Education 03/01/2024 [...] Follow these instructions at home: Medicines Take mrte-fdf-cnkxsqd and prescription medicines only as told by [...] or the blood stops without treatment. Take wdch-cbm-lytyydg and prescription medicines only as told by your health care provider. Drink enough fluid to keep your urine pale yellow. This information is not intended to replace advice given to you by your health care provider. Make sure you discuss any questions you have with your health care provider. Document Revised: 01/28/2021 Document Reviewed: 01/28/2021 All Def Digital Patient Education 2023 [employer]. Follow Up Care 02/27/2024 10:53:51 With:Kiarra Christiansen, URL Address: When: Unknown Comments:Appointment has already been scheduled [facility] 03-01-2024 Note Patient Education Urology Hematuria, Adult [...] these instructions at home: Medicines ? Take qaal-ava-otrpipk and prescription medicines only as told by [...] the blood stops without treatment. ? Take bkzl-khc-lrbyoun and prescription medicines only as told by your health care provider. ? Drink enough fluid to keep your urine pale yellow. This information is not intended to replace advice given to you by your health care provider. Make sure you discuss any questions you have with your health care provider. Document Revised: 01/28/2021 Document Reviewed: 01/28/2021 [facility] Patient [facility] ? [facility] Hospital Discharge instructions Patient Education [...] urethra. Follow these instructions at home: Take yrox-npi-oaiqeza and prescription medicines only as told by [...] provider. Document Revised: 12/16/2021 Document Reviewed: 12/16/2021 All Def Digital Patient Education 2023 [employer]. Follow Up Care 01/27/2024 13:17:25 With:Kiarra Christiansen, URL Address: When:3 months Comments:w/PSA [facility] 02-23-2024 Note Urology Office/Clini c Note Chief Complaint [employer]- referral from [facility] ureteral stone HPI Staff 48 year old here today as [employer], referral for Ureteral Stones. was taking flomax, [...] Skin: No rashes or suspicious lesions Assessment/Plan [employer] referred by Jorge Gibbs NP for ureteral stone. 01/08/24 - BUN 27, Cre 1.95, GFR 44 (pt had hydro due to ureteral stone at this time), no repeat labs in [facility] 1. History of kidney stones (Z87.442: Personal history of urinary calculi) 01/08/[address] [facility] ER CT w/o con - mild R hydronephrosis due to a 5mm proximal R ureteral stone near the UPJ. No additional upper or lower urinary tract calculi are seen on either side. There are no other acute findings in the abdomen or pelvis 02/16/24 KUB - no appreciable urinary tract calculi Pt went to [facility] ER on 01/08/24 due to pain. Pt [...] drink a lot of water and drinks [employer]. Discussed increasing fluids and adding lemon/mcgrath to patient's regimen, pt verbalizes understanding. Briefly discussed metabolic workup with patient should he develop another stone. -Increase fluids, avoid bladder irritants -Add lemon/mcgrath, lemonade to fluid intake -Call our office for any stone symptoms -F/U 1 year with KUB/KECIA Ordered: E&M of New Patient High 60-74 Min 87616 2. BPH with obstruction/lower urinary tract symptoms [...] Daily, # 30 cap(s), Refills(s) 11, Pharmacy: [facility], 168, cm, 02/23/24 10:12:00 EDT, Height/Length Dosing, 102, kg, 02/23/24 10:12:00 EDT, Weight Dosing E&M of New Patient High 60-74 Min 58038 3. Screening PSA (prostate specific antigen) (Z12.5: [...] E&M of New Patient High 60-74 Min 24189 PSA Total 4. Asymptomatic microscopic hematuria (R31.21: [...] Denies gross hematuria. (more content not included)... [facility] Comment on above: Result Comment: Elec [...] Follow these instructions at home: ? Take njik-ucl-xyqrnmw and prescription medicines only as told by [...] develop side effec (more content not included)... [facility] History of Present illness Narrative [address] [facility] [id number] Patient: Jorgito Jovel Date of : 1975 [...] He has gotten a surgery consultation through [facility] in the past and decided not to [...] this visit: Right ureteral stone - Cancel: [facility] [place], [place]; Future Fatty liver Follow-up: Patient was set up with [facility] but unfortunately they did not take [...] for routine visit. ZOEY THOMAS APRN-CNP 01/23/24 5653 documented in this encounter [facility] 01-02-2024 History of Present illness Narrative Subjective [...] Cervical back: Neck supple. Skin: Findings: Lesion (Embarrass, soft, freely movable mass along left anterior [...] see a surgeon. documented in this encounter [facility] 11-08-2023 Miscellaneous Notes Pt called stated he neds a refill of his wagovy . Not sure what dose he needs , some other screen comes up when I tried to send you a reorder Form printed out to faxed to [facility] documented in this encounter [facility] 11-08-2023 Telephone encounter Note Pt called stated he neds a refill of his wagovy . Not sure what dose he needs , some other screen comes up when I tried to send you a reorder [facility] 11-08-2023 Telephone encounter Note Form printed out to faxed to [facility] 10-10-2023 History of Present illness Narrative [...] EDI Berg 10/10/231838 documented in this encounter [facility] 09-12-2023 History of Present illness Narrative Semaglutide 0.6 mg once a week sent in to [facility] documented in this encounter [facility] 08-30-2023 History of Present illness Narrative [...] for this visit: [place]raumatic[place] [place] - Comprehensive metabolic panel; Future Hypomagnesemia - Magnesium; Future Essential hypertension Morbid obesity [place] [place] He looks good today [...] Berg 08/30/23 1710 documented in this encounter [facility] 08-13-2023 Miscellaneous Notes I called pt and he is taking it.He has a 90 supply everything good he is receiving it through [facility] documented in this encounter [facility] 08-13-2023 Telephone encounter Note I called pt and he is taking it.He has a 90 supply everything good he is receiving it through [facility] 08-04-2023 History of Present illness Narrative Subjective [...] would like a refill. 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 I have gotten multiple request to refill this medication. Call patient and find out what is going on [facility] 07-08-2023 Telephone encounter Note It will be covered if it goes to this pharmacy [facility] 07-08-2023 Telephone encounter Note That pharmacy does not accept e-prescriptions per Epic. [facility] 07-04-2023 Miscellaneous Notes [facility] rep called requesting an [facility] med refill however I dont see it as a listed med. Please advise. It was not going to be covered so I changed it to something else per patient's request. documented in this encounter [facility] 07-04-2023 Telephone encounter Note [facility] rep called requesting an Edarbi med refill however I dont see it as a listed med. Please advise. [facility] 07-04-2023 Telephone encounter Note It was not going to be covered so I changed it to something else per patient's request. [facility] 06-21-2023 History of Present illness Narrative Subjective [...] EDI Amaya 06/21/231723 documented in this encounter [facility] 12-04-2021 Note PROCEDURE: XR HEEL R [...] authenticated by: SALINA AGUILERA Date: 2021-12-04 09:07 [facility] 06-16-2021 Evaluation note Encounter Date Diagnosis Assessment [...] Patient care instructions given in writting by [facility] Care At Home document. [facility] Other 09-09-2021 NotePROCEDURE: XR KNEE RT 4V [...] Electronically authenticated by: SALINA AGUILERA Date: 2021-02-19 14:03[facility] Future Appointments Appointment Date:05/24/2024 09:00:00 AM Scheduled Provider:Kiarra Christiansen Location:[facility] Appointment Type:URO Office Visit Diagnostic Tests Pending * Creatinine 03/01/24 [facility] evaluation + Plan note Future Appointments Appointment Date:05/24/2024 09:00:00 AM Scheduled Provider:Kiarra Christiansen Location:[facility] Appointment Type:URO Office Visit Diagnostic Tests Pending * Urine Culture 02/23/24 [facility] Evaluation + Plan note Future Appointments Appointment Date:05/24/2024 09:00:00 AM Scheduled Provider:Kiarra Christiansen Location:[facility] Appointment Type:URO Office Visit Diagnostic Tests Pending * PSA Total 02/23/24 [facility] evaluation note* Diagnosis Morbid obesity ([facility] Primary Morbid obesity Abdominal bloating [...] [facility] Diagnosis Morbid obesity ([facility] Primary Morbid obesity Lumbar disc [...] Unspecified essential hypertension [facility] Diagnosis Lumbar disc prolapse with compression radiculopathy- Primary Displacement of lumbar intervertebral disc without myelopathy Class 2 severe obesity due to excess calories with serious comorbidity and body mass index (BMI) of 39.0 to 39.9 in adult ([facility]) Lipoma, unspecified site documented in this encounter [facility] Diagnosis Acute kidney injury (nontraumatic) ([facility] Primary Acute kidney failure, unspecified Hypomagnesemia Disorders of magnesium metabolism Essential hypertension Unspecified essential hypertension Morbid obesity ([facility]) Morbid obesity documented in this encounter [facility]* Diagnosis Hypomagnesemia- Primary Disorders of magnesium metabolism [facility] this [facility] Diagnosis Right ureteral stone- Primary documented in this encounter [facility] Diagnosis Right ureteral stone- Primary Fatty liver Other chronic nonalcoholic liver disease [facility] in [facility] Diagnosis Spondylolisthesis, lumbar region documented in this encounter [facility]* Diagnosis Lumbar disc prolapse with compression radiculopathy Displacement of lumbar intervertebral disc without myelopathy documented in this encounter [facility] Diagnosis Lumbar disc prolapse with compression radiculopathy- Primary Displacement of lumbar intervertebral disc without myelopathy Class 2 severe obesity due to excess calories with serious comorbidity and body mass index (BMI) of 36.0 to 36.9 in adult ([facility]) Essential hypertension Unspecified essential hypertension Other fatigue documented in this encounter [facility]* Diagnosis Urinary urgency Urgency of urination documented in this encounter [facility]* Diagnosis Spondylolisthesis, lumbar region documented in this encounter [facility]* Diagnosis Lumbar disc prolapse with compression radiculopathy- Primary Displacement of lumbar intervertebral disc without myelopathy documented in this encounter [facility] Narrative - Reported* Type Description Date Medical History GERD Medical History arthritis Medical History NIDDM Medical History HTN Medical History hyperlipidemia Medical History sleep apnea Medical History depression Medical History deviated nasal septum Medical History chronic sinusitis Medical History COPD Surgical History Injection Tendon Origin/Inserti on Surgical History LASIK Surgical History total hip replacement, left Hospitalization History surgeries [facility] Other Hospital course Narrative No data available for this section [facility] Hospital Discharge instructions No data available for this section [facility] InstructionsNot on filedocumented in this encounter [facility] on filedocumented in this encounter [facility]ructionsNot on filedocumented in this encounter [facility] SystemInstructionsNot on filedocumented in this encounter [facility]ructionsNot on filedocumented in this encounter [facility] SystemInstructionsNot on filedocumented in this encounter [facility] SystemInstructionsNot on filedocumented in this encounter [facility] SystemInstructionsNot on filedocumented in this encounter [facility]* Attachments The following attachments cannot be sent through Care Everywhere. * Kidney stones in adults (Tajik) documented in this [facility] SystemInstructionsNot on file documented in this encounterProUnity [facility] SystemInstructionsNot on file documented in this encounterProMer[facility] SystemInstructionsNot on file documented in this encounterProMer[facility] SystemProgress note No data available for this section [facility] reason for referral (narrative)* Consultation (Routine) - Pending Review Specialty Diagnoses / Procedures Referred By Cassandra t Referred To Contact Urology Diagnoses Right ureteral stone Jorge Gibbs APRN-CNP [address] [place] [address] Juancho Nunn MD [address] [place] [address] Referral ID Status Reason Start Date Expiration Date Visits Requested Visits Authorized [id number] Pending Review Specialty Services Required 01/20/2024 01/19/2025 1 1 [facility] Summary Purpose Family History No Family [...] DATE CREATED AUTHOR AUTHOR'S ORGANIZ ATION 12/02/2017 [facility] DATE CREATED AUTHOR AUTHOR'S ORGANIZ ATION 06/02/2021 [facility] DATE CREATED AUTHOR AUTHOR'S ORGANIZ ATION 12/09/2021 [facility] DATE CREATED AUTHOR AUTHOR'S ORGANIZ ATION 02/26/2024 [facility] DATE CREATED AUTHOR AUTHOR'S ORGANIZ ATION 02/27/2024 [facility] DATE CREATED AUTHOR AUTHOR'S ORGANIZ ATION 05/27/2024 [facility] DATE CREATED AUTHOR AUTHOR'S ORGANIZ ATION 06/04/2024 [facility] DATE CREATED AUTHOR AUTHOR'S ORGANIZ ATION 07/29/2024 [facility] DATE CREATED AUTHOR AUTHOR'S ORGANIZ ATION 08/10/2024 [facility] DATE CREATED AUTHOR AUTHOR'S ORGANIZ ATION 08/27/2024 [facility] REASON FOR VISIT (unrecogniz ed section and content) Reason Comments Follow-up Reason Comments elbow, arm wrist pain w/ lump on wrist Reason Comments Back Pain Reason Comments Med Refill Reason Onset Date Comments Med Refill 11/08/2023 Reason Comments Weight Loss Reason Comments Follow-up From ER visit 3 days at [facility] Reason Comments Er Follow-up Still having sorenes s in back Reason Onset Date Comments Med Refill 02/16/2024 Reason Comments controlled Reason Onset Date Comments Med Refill 08/27/2024 Patient Care team informatio n (unrecognized section and content) Carousel Operator Relationship Specialty Start Date End Date Shahbaz Mancini DO [address], [place] [address] PCP - General Family Medicine 02/11/22 Carousel Operator Relationship Specialty Start Date End Date Shahbaz Mancini DO [address] [place] [address] PCP - General Family Medicine 02/11/22 Carousel Operator Relationship Specialty Start Date End Date Shahbaz Mancini DO [address] [place] [address] PCP - General Family Medicine 02/11/22 Carousel Operator Relationship Specialty Start Date End Date Shahbaz Mancini DO [address] [place] [address] PCP - General Family Medicine 02/11/22 Carousel Operator Relationship Specialty Start Date End Date Shahbaz Mancini DO [address] [place] [address] PCP - General Family Medicine 02/11/22 Carousel Operator Relationship Specialty Start Date End Date Shahbaz Mancini DO [address] [place] [address] PCP - General Family Medicine 02/11/22 Carousel Operator Relationship Specialty Start Date End Date Shahbaz Mancini DO [address] [place] [address] PCP - General Family Medicine 02/11/22 Carousel Operator Relationship Specialty Start Date End Date Shahbaz Mancini DO [address] [place] [address] PCP - General Family Medicine 02/11/22 Carousel Operator Relationship Specialty Start Date End Date Shahbaz Mancini DO [address], [place] [address] PCP - [facility] 02/11/22 Carousel Operator Relationship Specialty Start Date End Date Shahbaz Mancini DO [address] [place] [address] PCP - [facility] 02/11/22 Carousel Operator Relationship Specialty Start Date End Date Shahbaz Mancini DO [address] [place] [address] PCP - [facility] 02/11/22 Carousel Operator Relationship Specialty Start Date End Date Shahbaz Mancini DO [address], [place] [address] PCP - [facility] 02/11/22 FOR RECORDS PERTAINING TO PATIENTS WHO [...] BE BASED ON THE PRIMARY CLINICAL RECORDS. [employer] [facility]. provides no warranty or guarantee of the accuracy or completeness of information in this document.
--- NOTE | 2024-09-05 10:31 | PM.CN ---
Consult Note: HPI Data of Consult Requesting Physician: Evelyn Landa NP Primary Care Provider: OSMAR MANCINI Consult Narrative Reason for consult: low back, bilateral lower extremity pain Narrative: 49yom who presents for evaluation. longstanding low back, bilateral lower extremity pain. previously underwent injection therapies. uses pain meds as needed, with limited benefit. has engaged in >6 weeks of provider directed home exericses, without benefit. denies adverse med side effects. recently underwent lumbar MRI which is consistent with multilevel disc bulge and spondylotic changes. pain today 8/10 soreness radiating into left leg with heaviness and weakness. cc:: CC: Evelyn Landa NP Review of Systems ROS Status of ROS 10 or more systems reviewed and unremarkable except as noted in history and below Musculoskeletal Reports: back pain and extremity pain PFSH PFSH Medical History GERD (gastroesophageal reflux disease) ?K21.9 - Gastro-esophageal reflux disease without esophagitis (ICD-10) OAB (overactive bladder) ?N32.81 - Overactive bladder (ICD-10) Hyperlipidemia ?E78.5 - Hyperlipidemia, unspecified (ICD-10) Prediabetes ?R73.03 - Prediabetes (ICD-10) HTN (hypertension) ?I10 - Essential (primary) hypertension (ICD-10) Cholelithiasis ?K80.20 - Calculus of gallbladder without cholecystitis without obstruction (ICD-10) Degenerative disc disease, lumbar ?M51.36 - Other intervertebral disc degeneration, lumbar region (ICD-10) Surgical History History of hip replacement ?Z96.649 - Presence of unspecified artificial hip joint (ICD-10) Family History Father Family history of CHF (congestive heart failure) Family history of COPD (chronic obstructive pulmonary disease) Family history of hypertension Family history of stroke Grandfather Family history of cancer Family history of hypertension Grandfather Family history of cancer Brother Family history of diabetes mellitus Family history of hypertension Social History Within the past year, how often did you have a drink containing alcohol: 2-4 times a month Within the past year, how many standard drinks containing alcohol did you have on a typical day: 1 or 2 Within the past year, how often did you have six or more drinks on one occasion: never Total score: 0 Score interpretation: A score less than 4 is consistent with normal alcohol consumption. Smoking status: Current every day smoker Do you use any of these nicotine containing products: vaping products Non-prescribed substance use: denies use Previous occupational history: [employer] Highest level of school completed/degree received: Associate degree: occupational, technical, vocational program Little interest or pleasure in doing things: not at all Feeling down, depressed, or hopeless: not at all Feel stressed/tense/nervous/anxious/difficulty sleeping: not at all Meds Home Medications and Allergies Home Medications ?Medication ?Instructions ?Recorded ?Confirmed ?Type atorvastatin 20 mg tablet 20 mg PO DAILY 08/22/23 08/22/23 History celecoxib 200 mg capsule 200 mg PO BID 08/22/23 08/22/23 History fenofibrate 160 mg tablet 160 mg PO DAILY 08/22/23 08/22/23 History metoprolol succinate 50 mg 50 mg PO DAILY 08/22/23 08/22/23 History tablet,extended release 24 hr omeprazole 20 mg capsule,delayed 20 mg PO DAILY 08/22/23 08/22/23 History release oxybutynin chloride 5 mg tablet 5 mg PO DAILY 08/22/23 08/22/23 History hydrocodone 5 mg-acetaminophen 325 1 tab PO Q6H PRN pain 08/20/24 08/20/24 History mg tablet magnesium oxide 400 mg (241.3 mg 400 mg PO DAILY 08/20/24 08/20/24 History magnesium) tablet semaglutide 2 mg/dose (8 mg/3 mL) 2 mg subcut QWEEK 08/20/24 08/20/24 History subcutaneous pen injector tamsulosin 0.4 mg capsule 0.4 mg PO Q24H 08/20/24 08/20/24 History tizanidine 4 mg tablet 4 mg PO Q12H PRN muscle spasticity 08/20/24 08/20/24 History Allergies Allergy/AdvReac Type Severity Reaction Status Date / Time No Known Drug Allergies Allergy Verified 02/27/24 08:53 Exam Narrative Exam Narrative: Psych-alert and oriented x 3. Attentive and appropriate, constitutionally normal, displays normal mood and affect per situation. There are no obvious deficits in memory, reasoning, or intellect.? Skin-no obvious rashes, bruising, erythema noted to the patient's area of pain.? Extremities- extremities are warm with minimal edema and palpable pulses. Lumbar-tenderness to palpation noted in the lumbar spine and paraspinal musculature. Pain is elicited with flexion, extension, and lateral rotation of the lumbar spine. Range of motion is diminished with these motions. Facet loading maneuvers are positive. Strength-noted to be unremarkable with the exception of decreased strength rated at 4 out of 5 in bilateral quadriceps femoris, anterior tibialis. Sensory-no notable sensory deficits in the bilateral lower extremities to touch or pinprick in all dermatomal distributions with the exception to decreased sensation to the bilateral L4, 5 dermatomal distribution Coordination remains intact.? Gait remains non-antalgic. Assessment and Plan Assessment and Plan (1) Lumbar stenosis with neurogenic claudication: Assessment and Plan: The patient has had over 3 months of moderate to severe low back and leg pain with functional impairment and inadequate response to conservative care including NSAIDS (unless there are contraindication such as concurrent blood thinners), multiple oral or topical pain medications, and home exercise program/physical therapy.? Patient has completed >6 weeks of guided home exercise program and/or formal physical therapy program without relief of their symptoms.? I have reviewed the imaging of the lumbar spine and no red flags were identified.? The Oswestry Disability Index was completed, and the patient scored a 51%.? The patient noted the following:?? moderate to severe pain impacting ADLs, sleep, social life, sitting, standing We discussed the risks and benefits of the procedure with the patient, and we are NOT planning on using sedation as outlined in the guidelines from Medicare unless there is a documented reason that sedation would be strongly recommended.?? ?The procedure will be completed with fluoroscopic guidance.? (2) Lumbar spondylosis: Plan lumbar MRI reviewed with pt, as discussed he has multiple pain patterns each requiring a separate workup. at this time will trial left L4,5 L5,S1 TFESI under fluoroscopy, consider left SIJ injection and lumbar MBBs in the future, for lumbar stenosis with NC. DC celebrex, start mobic 7.5mg BID with food, risks vs benefits reviewed. dc tizanidine start baclofen 10mg 1-2 tabs daily PRN pain/spasms. continue HEP as tolerated. f/u after injection
== END 2024-09-05 09:51 | disposition home or self-care (01) ==
LOC: PM 09:50
PROVIDERS: PCP Family Medicine; Visit Provider Nurse Practitioner
DX: M48.062 Spinal stenosis, lumbar region with neurogenic claudication (principal); M47.816 Spondylosis without myelopathy or radiculopathy, lumbar region
CPT/HCPCS: G0463

== ENCOUNTER 2024-09-17 08:55 | Day surgery (SDC) | payer OTHER, SELFPAY ==
[2024-09-17 09:02] VITALS: BP 132/85; PULSE 83; TEMP 36.6; O2SAT 98
[2024-09-17 09:56] VITALS: BP 135/87; PULSE 77; O2SAT 97
[2024-09-17 09:58] VITALS: BP 141/84; PULSE 75; O2SAT 99
[2024-09-17] MEDS: BUPIVACAINE HCL 0.25% PF 25 MG/10 ML VIAL INJ (10:00)
[2024-09-17] MEDS: 0.9 % SODIUM CHLORIDE 10 ML SYRINGE - SALINE FLUSH INJ (10:00)
[2024-09-17] MEDS: LIDOCAINE HCL 2% 400 MG/20 ML MDV 3 ML INJ (10:01)
[2024-09-17] MEDS: IOHEXOL 240 MG/ML - 10 ML VIAL INJ (10:01)
[2024-09-17] MEDS: METHYLPREDNISOLONE ACETATE 80 MG/ML VIAL INJ (10:01)
--- NOTE | 2024-09-17 10:06 | P.ON_ITS ---
Date of procedure: 09/17/24 Pre-op diagnosis: Pain due to lumbar stenosis with neurogenic claudication Post-op diagnosis: same as pre-op Procedure: Procedure: Left L4-5, L5-S1 transforaminal epidural steroid injection Medications: Bupivacaine 0.25% 2cc, lidocaine 2% 1cc, depomedrol 80mg The patient was seen and examined in the preoperative holding area.? Informed consent was obtained and placed on the chart.? Patient was brought to the medical procedure unit and placed in the prone position where a timeout was completed verifying the correct patient, procedure site, position, and planned special equipment using sterile aseptic technique.? Under direct fluoroscopic visualization a 25-gauge Quincke tipped spinal needle was advanced to the designated neural foramen where contrast dye was injected to show adequate spread.? The needle was inserted at level left L4-5. There was no evidence of vascular or adverse uptake.? Epidural spread was appreciated.? The above- mentioned injectate was then placed in a 1.5 mL aliquot preceded by negative aspiration.? The needle was removed. The needle was inserted and the procedure repeated at level left L5-S1.? The surgery site was covered.? Patient was taken to the postprocedural recovery area and monitored for an appropriate length of time before found suitable for discharge in the accompaniment of a responsible adult. Anesthesia: Local Surgeon: Chrissy Conway Pathology: none sent Condition: stable Disposition: no change
== END 2024-09-17 10:10 | disposition home or self-care (01) ==
PROVIDERS: PCP Family Medicine; Visit Provider Anesthesiology
DX: M48.062 Spinal stenosis, lumbar region with neurogenic claudication (principal); M54.50 Low back pain, unspecified
CPT/HCPCS: 64483; 64484; J0665; J1010; Q9966

== ENCOUNTER 2024-10-04 13:42 | Outpatient (OUT) | payer OTHER, SELFPAY ==
--- NOTE | 2024-10-04 14:15 | P.CN_ITS ---
Consult Note: HPI Data of Consult Requesting Physician: Evelny Landa NP Primary Care Provider: OSMAR MANCINI Consult Narrative Reason for consult: low back, bilateral lower extremity pain Narrative: 49yom who presents for evaluation. longstanding low back, bilateral lower extremity pain. previously underwent injection therapies. uses pain meds as needed, with limited benefit. has engaged in >6 weeks of provider directed home exericses, without benefit. denies adverse med side effects. recently underwent lumbar MRI which is consistent with multilevel disc bulge and spondylotic changes. pain today 1/10 increasing to 6/10 at times. pt noting significant improvement in leg pain post Left L4-5 L5-S1 TFESI (>50% improvement ongoing). cc:: CC: Evelyn Landa NP Review of Systems ROS Status of ROS 10 or more systems reviewed and unremark able except as noted in history and below Musculoskeletal Reports: back pain and extremity pain PFSH PFSH Medical History GERD (gastroesophageal reflux disease) ?K21.9 - Gastro-esophageal reflux disease without esophagitis (ICD-10) OAB (overactive bladder) ?N32.81 - Overactive bladder (ICD-10) Hyperlipidemia ?E78.5 - Hyperlipidemia, unspecified (ICD-10) Prediabetes ?R73.03 - Prediabetes (ICD-10) HTN (hypertension) ?I10 - Essential (primary) hypertension (ICD-10) Cholelithiasis ?K80.20 - Calculus of gallbladder without cholecystitis without obstruction (ICD-10) Degenerative disc disease, lumbar ?M51.36 - Other intervertebral disc degeneration, lumbar region (ICD-10) Surgical History History of hip replacement ?Z96.649 - Presence of unspecified artificial hip joint (ICD-10) Family History Father Family history of CHF (congestive heart failure) Family history of COPD (chronic obstructive pulmonary disease) Family history of hypertension Family history of stroke Grandfather Family history of cancer Family history of hypertension Grandfather Family history of cancer Brother Family history of diabetes mellitus Family history of hypertension Social History Within the past year, how often did you have a drink containing alcohol: 2-4 times a month Within the past year, how many standard drinks containing alcohol did you have on a typical day: 1 or 2 Within the past year, how often did you have six or more drinks on one occasion: never Total score: 0 Score interpretation: A score less than 4 is consistent with normal alcohol consumption. Smoking status: Current every day smoker Do you use any of these nicotine containing products: vaping products Non-prescribed substance use: denies use Previous occupational history: [employer] Highest level of school completed/degree received: Associate degree: occupational, technical, vocational program Little interest or pleasure in doing things: not at all Feeling down, depressed, or hopeless: not at all Feel stressed/tense/nervous/anxious/difficulty sleeping: not at all Meds Home Medications and Allergies Home Medications ?Medication ?Instructions ?Recorded ?Confirmed ?Type atorvastatin 20 mg tablet 20 mg PO DAILY 08/22/23 09/17/24 History fenofibrate 160 mg tablet 160 mg PO DAILY 08/22/23 09/17/24 History metoprolol succinate 50 mg 50 mg PO DAILY 08/22/23 08/22/23 History tablet,extended release 24 hr omeprazole 20 mg capsule,delayed 20 mg PO DAILY 08/22/23 09/17/24 History release oxybutynin chloride 5 mg tablet 5 mg PO DAILY 08/22/23 09/17/24 History magnesium oxide 400 mg (241.3 mg 400 mg PO DAILY 08/20/24 09/17/24 History magnesium) tablet semaglutide 2 mg/dose (8 mg/3 mL) 2 mg subcut QWEEK 08/20/24 09/17/24 History subcutaneous pen injector tamsulosin 0.4 mg capsule 0.4 mg PO Q24H 08/20/24 09/17/24 History tizanidine 4 mg tablet 4 mg PO Q12H PRN muscle spasticity 08/20/24 09/17/24 History meloxicam 7.5 mg tablet mg 09/17/24 History Allergies Allergy/AdvReac Type Severity Reaction Status Date / Time No Known Drug Allergies Allergy Verified 09/17/24 09:07 Exam Constitutional Documenting provider has reviewed patient's vital signs: yes Common normals: no apparent distress, oriented x3, healthy appearing, alert and well nourished General appearance: cooperative HENMT Common normals: normocephalic, hearing grossly normal bilaterally and moist oral mucous membranes Head and scalp: normocephalic Eye Common normals: PERRL Pupil: PERRL Neck & C-Spine Common normals: full ROM General: normal visual inspection Chest Common normals: inspection of chest normal Respiratory Common normals: normal respiratory effort, no retractions and no use of accessory muscles Back & Pelvis Lumbar spine/lower back: pain with ROM and lumbar spinal tenderness Sacroiliac joints: SI joint(s) abnormal Other: bilateral positive elizabeth(patricks), gaenslens, thigh thrust, compression test Neuro Common normals: oriented x3 Sensorium/orientation: alert Psych Common normals: mental status grossly normal, thought process normal, cooperative, affect normal, speech normal and activity/motor behavior normal Speech: normal speech Thought process: normal thought process Assessment and Plan Assessment and Plan (1) Lumbar stenosis with neurogenic claudication: (2) Sacroiliitis: Assessment and Plan: The patient has had over 3 months of moderate to severe low back pain with functional impairment and inadequate response to conservative care including NSAIDS (unless there are contraindication such as concurrent blood thinners), multiple oral or topical pain medications, and home exercise program/physical therapy.? Patient has completed >6 weeks of guided home exercise program and/or formal physical therapy program without relief of their symptoms.? I have reviewed the imaging of the lumbar spine and no red flags were identified.? The Oswestry Disability Index was completed, and the patient scored a 18%.? The patient noted the following:?? moderate to severe pain impacting ADLs, sleep, social life, sitting, standing We discussed the risks and benefits of the procedure with the patient, and we are NOT planning on using sedation as outlined in the guidelines from Medicare unless there is a documented reason that sedation would be strongly recommended.?? ?The procedure will be completed with fluoroscopic guidance.? (3) Lumbar spondylosis: Plan proceed with bilateral SIJ injection under fluoroscopy consider lumbar MBBs working towards RFA for axial facet mediated low back pain continue mobic 7.5mg BID PRN pain decrease baclofen 5-10mg bid prn pain/spasms f/u 2 weeks after SIJ injection
== END 2024-10-04 13:43 | disposition home or self-care (01) ==
LOC: PM 13:42
PROVIDERS: PCP Family Medicine; Visit Provider Nurse Practitioner
DX: M48.062 Spinal stenosis, lumbar region with neurogenic claudication (principal); M46.1 Sacroiliitis, not elsewhere classified; M47.816 Spondylosis without myelopathy or radiculopathy, lumbar region
CPT/HCPCS: G0463

== ENCOUNTER 2024-10-15 10:20 | Day surgery (SDC) | payer OTHER, SELFPAY ==
[2024-10-15 11:16] VITALS: BP 126/90; PULSE 102; TEMP 36.5; O2SAT 97
[2024-10-15 12:00] VITALS: BP 146/74; PULSE 90; PULSE 92; O2SAT 96
[2024-10-15 12:01] VITALS: BP 139/82
[2024-10-15] MEDS: IOHEXOL 240 MG/ML - 10 ML VIAL INJ (12:01)
[2024-10-15] MEDS: BUPIVACAINE HCL 0.25% PF 25 MG/10 ML VIAL 4 ML INJ (12:01)
[2024-10-15] MEDS: LIDOCAINE HCL 2% 400 MG/20 ML MDV INJ (12:02)
[2024-10-15] MEDS: METHYLPREDNISOLONE ACETATE 40 MG/ML VIAL 80 MG INJ (12:02)
--- NOTE | 2024-10-15 12:03 | W.PM.PROCNOT ---
Date of procedure: 10/15/24 Pre-op diagnosis: Pain due to bilateral sacroiliitis Post-op diagnosis: same as pre-op Procedure: Procedure: Bilateral block of the nerve innervating the sacroiliac joint injection Medications: Bupivacaine 0.25% 3cc, depomedrol 40mg x2 After informed consent was obtained, the patient was brought to the medical procedure unit and placed in the prone position, when a timeout was completed verifying correct patient, procedure, site, positioning, implant, and/or special equipment.? The skin overlying the area was prepped and draped in standard sterile fashion using alcohol.? A 25-gauge needle was inserted towards the superior gluteal nerve innervating the left sacroiliac joint under direct fluoroscopic imaging.? Needle tip was advanced until the nerve was encountered.? We instilled a total of 0.5 mL of solution. Subsequently, the dorsal rami of L5, S1, and S2 were approached, and the procedure completed in the same fashion.? Postoperatively needles were removed.? The same procedure was then completed on the opposite side. The patient tolerated the procedure well without complication.? The patient reported reduction in pain symptoms postoperatively. Anesthesia: Local Surgeon: Chrissy Conway Pathology: none sent Condition: stable Disposition: no change
== END 2024-10-15 12:07 | disposition home or self-care (01) ==
PROVIDERS: PCP Family Medicine; Visit Provider Anesthesiology
DX: M46.1 Sacroiliitis, not elsewhere classified (principal); M53.3 Sacrococcygeal disorders, not elsewhere classified; Z79.85 Long-term (current) use of injectable non-insulin antidiabetic drugs
CPT/HCPCS: 64451; J0665; J1010; Q9966

== ENCOUNTER 2024-10-24 08:27 | Outpatient (OUT) | payer OTHER, SELFPAY ==
--- OUTSIDE RECORDS SUMMARY | 2024-10-24 08:46 | XMS_ITS | CCD ---
Author Organization [facility] Care Team Providers Care Bradder Name Role Phone Christina Apodaca Unavailable Unavailable Yandel Garcia Unavailable Unavailab Yandel Coombs Unavailable Unavailab Christina Smith Unavailable Unavailable Yandel Garcia Unavailable Unavailab Kendy Vázquez Unavailable LIVE, DR SHAHBAZ Auguste Primary Care Unavailable REINENOC, DR MONIK Auguste Admitting Unavailabl e REINECK, [...] Attending Unavailable SHAHBAZ MANCINI Primary Care Physician Kiarra Min Attending Unavailable Kiarra Min Admitting Unavailable Kiarra Min Attending Unavailable JOSIE GRANDE Referring Unavailable SHAHBAZ MANCINI Primary Care Unavailable SHAHBAZ MANCINI Referring Unavailable SHAHBAZ MANCINI Primary Care Unavailable SHAHBAZ MANCINI Referring Unavailable SHAHBAZ MANCINI Primary Care Unavailable Furlong Shahbaz PERKINS Primary Care Provider Kiarra Min Attending Unavailable Kiarra Min Attending Unavailable JORGE GIBBS Referring Unavailable Kiarra Min Attending Unavailable Kiarra Min Admitting Unavailable Furlong TyShahbaz G Primary Care Provider [phone] JOSIE GRANDE Attending Unavailable FURLONG, SHAHBAZ G [...] Unavailable FURLONG, SHAHBAZ G Primary Care Unavailable Zoraida CHAVIRA, Chrissy Dela Cruz Attending Unavailable Zoraida CHAVIRA, Chrissy Dela Cruz Attending Unavailable STEVEN PADILLA Attending Unavailable STEVEN PADILLA Attending Unavailable Kiarra Min Attending Unavailable Kiarra Min Attending Unavailable Kiarra Min Admitting Unavailable Medications Current Medications Medication Drug Class(es) [...] TABLET BY MOUTH DAILY 0 08/15/2023 Active baclofen 10 mg oral tablet (1 source) gamma-Aminobutyric Acid-ergic Agonist Start: 09-05-2024 take 1-2 tablets by mouth once daily as needed baclofen (LIORESAL) 10 mg tablet TAKE 1 TO 2 TABLETS BY MOUTH EVERY DAY NEEDED 09/05/2024 Active fenofibrate 160 mg oral tablet (20 sources) Peroxisome Proliferator Receptor alpha Agonist Start: 02-02-2023 End: 08-08-2024 take 1 tablet by mouth once daily in the morning fenofibrate (LOFIBRA) 160 mg tablet TAKE 1 TABLET BY MOUTH ONCE DAILY IN THE MORNING 90 tablet 1 08/08/2024 Active take 1 tablet by zoila th [...] 100 tablet 3 08/31/2023 08/27/2024 Discontinued (Reorder) meloxicam 7.5 mg oral tablet (1 source) Nonsteroidal Anti-inflammatory Drug Start: 09-05-2024 meloxicam (MOBIC) 7.5 mg tablet Take 1 tablet (7.5 mg total) by mouth. 09/05/2024 Active 24 hr metoprolol succinate 50 mg [...] Daily, # 90 tab(s), Refills(s) 3, Pharmacy: [facility], 168, cm, 03/01/24 15:29:00 EDT, Height/Length Dosing, 102, kg, 03/01/24 15:29:00 EDT, Weight Dosing Start Date: 03/01/24 Status: Ordered Start: 05-03-2023 End: 04-29-2024 take 1 tablet by mouth in the morning oxybutynin (DITROPAN) 5 mg tablet Indications: Urinary urgency TAKE 1 TABLET BY MOUTH IN THE MORNING 90 tablet 1 04/29/2024 Active SEMAGLUTIDE, WEIGHT LOSS, SUBQ (16 sources) inject 1.8 mg by subcutaneous injection every week SEMAGLUTIDE, WEIGHT LOSS, SUBQ Inject 1.8 mg under the skin once a week. Active inject 1.2 mg by sub cutaneous injection every week SEMAGLUTIDE, WEIGHT LOSS, SUBQ Inject 1. 2 mg under the skin once a week. Active tamsulosin hydrochloride 0.4 mg oral capsule (11 sources) alpha-Adrenergic Luiza Start: 05-28-2024 take 1 capsule by mouth once daily tamsulosin (FLOMAX) 0.4 mg capsule Take 1 capsule (0.4 mg total) by mouth nightly. Has questions 05/28/2024 Active Start: 05-24-2024 take 1 capsule by [facility] once daily Flomax 0.4 mg Cap 0.4 mg = 1 cap(s), Oral, Daily, # 30 cap(s), Refills(s) 11, Pharmacy: [facility], 168, cm, 05/24/24 9:22:00 EST, Height/Length Dosing, 102.6, kg, 05/24/24 9:22:00 EST, Weight Dosing Start Date: 05/24/24 Status: Ordered Start: 02-23-2024 take 1 capsule by [facility] once daily Flomax 0.4 mg Cap 0.4 mg = 1 cap(s), Oral, Daily, # 30 cap(s), Refills(s) 11, Pharmacy: [facility], 168, cm, 02/23/24 10:12:00 EDT, Height/Length Dosing, 102, kg, 02/23/24 10:12:00 EDT, Weight Dosing Start Date: 02/23/24 Status: Ordered Completed/Discontinued Medications Medication Drug Class(es) Dates Sig (Normalized) Sig (Original) acetaminophen 325 mg / oxyCODONE hydrochloride 5 mg oral tablet (2 sources) Opioid Agonist Start: 05-28-2024 End: 07-27-2024 oxyCODONE-acetamin ophen (PERCOCET) 5-325 mg per tablet Indications: Spondylolisthesis, lumbar region Take 1 tablet by mouth every 8 (eight) hours as needed for pain. Max Daily Amount: 3 tablets 20 tablet 05/28/2024 07/27/2024 Discontinued (Therapy completed) celecoxib 200 mg oral capsule (20 sources) Nonsteroidal Anti-inflammatory Drug Start: 05-28-2024 End: 09-13-2024 take 1 capsule by mouth twice daily at bedtime celecoxib (CeleBREX) 200 mg capsule Indications: Spondylolisthesis, lumbar region TAKE 1 CAPSULE BY MOUTH TWICE DAILY (IN THE MORNING and AT BEDTIME) 180 capsule 1 08/08/2024 09/13/2024 Discontinued (Discontinued by another clinician) Start: 08-04-2023 End: 02-09-2024 take 1 capsule [...] DAY 90 capsule 1 05/03/2023 08/04/2023 Discontinued cyclobenzaprine hydrochloride 10 mg oral tablet (20 [...] 06/21/2023 Discontinued (Therapy completed) polyethylene glycol 3350 70296 mg powder for oral solution (9 sources) [...] tablet 2 10/10/2023 04/03/2024 Discontinued (Therapy completed) tiZANidine 4 mg oral tablet (8 sources) Central alpha-2 Adrenergic Agonist Start: 04-03-2024 End: 09-13-2024 take 1 tablet by mouth every six hours as needed tiZANidine (ZANAFLEX) 4 mg tablet Take 1 tablet (4 mg total) by mouth every 6 (six) hours as needed for muscle spasms. 120 tablet 1 04/03/2024 09/13/2024 Discontinued (Discontinued by another clinician) traMADol hydrochloride 50 mg oral tablet (20 [...] Translations: [Spondylolisthesis, lumbar region] 08-04-2023 Episodic Other connective tissue disease (1 [...] nutritional; endocrine; and metabolic disorders (1 source) Hypomagnesemia; Translations: [Hypomagnesemia] Onset: 08-30-2023 Chronic Other nutritional; endocrine; and metabolic disorders (20 sources) Severe obesity; Translations: [Class 2 severe obesity due to excess calories with serious comorbidity and body mass index (BMI) of 36.0 to 36.9 in adult] Onset: 04-07-2023 04-03-2024 Chronic Other nutritional; endocrine; and metabolic disorders (20 sources) Hypomagnesemia; Translations: [Hypomagnesemia] Onset: 08-31-2023 08-31-2023 Chronic Other nutritional; endocrine; and metabolic disorders (1 source) Morbid (severe) obesity due to excess calories; Translations: [Morbid (severe) obesity due to excess calories] Onset: 04-03-2024 Chronic Other nutritional; endocrine; and metabolic disorders (1 source) Body mass index (BMI) 36.0-36.9, adult; Translations: [Body mass index (BMI) 36.0-36.9, adult] Onset: 04-03-2024 Chronic Other nutritional; endocrine; and metabolic disorders (1 source) Body mass index (BMI) 39.0-39.9, adult; Translations: [Body mass index (BMI) 39.0-39.9, adult] Onset: 04-07-2023 Chronic Other screening for suspected conditions (not [...] lumbar intervertebral disc] Onset: 06-29-2018 03-02-2022 Chronic Spondylosis; intervertebral disc disorders; other back problems (20 sources) Lumbar disc prolapse with radiculopathy; Translations: [Intervertebral disc disorders with radiculopathy, lumbar region] Onset: 12-03-2022 12-03-2022 Episodic Substance-related disorders (20 sources) Nicotine dependence, cigarettes, uncomplicated; Translations: [Cigarette smoker ] Onset: 05-12-2020 03-02-2022 Chronic Unclassified (2 sources) Chronic sinusitis, unspecified / J32.9(ICD-10) Onset: 11-23-2017 Unclassified (1 source) Obesity, class 2; Translations: [Obesity, class 2] Onset: 04-03-2024 Unclassified (1 source) Weight Check Onset: 09-13-2024 Unclassified (1 source) Annual Exam Onset: 05-28-2024 Unclassified (1 source) controlled Onset: 04-03-2024 Unclassified (1 source) Er Follow-up Onset: 01-19-2024 Past or Other Problems Problem Classification Problem Date Documented Da te Episodic/Chronic Acute and unspecified renal failure (2 sources) Acute kidney failure, unspecified; Translations: [Acute [...] 2 Resolved: 2 Episodic Malaise and fatigue (9 sources) Fatigue; Translations: [Other fatigue] Onset: 4 04-03-2024 Episodic Mood disorders (20 sources) Mood disorders Onset: 4 Resolved: 5 05-28-2024 Other acquired deformities (1 source) Spondylolisthesis L5/S1 level; Translations: [Spondylolisthesis, lumbosacral region] Episodic Other acquired deformities (1 source) Spondylolisthesis, lumbar region; Translations: [Spondylolisthesis, lumbar region] Onset: 4 Episodic Other aftercare (1 source) 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; Translations: [OTH AIRPLANE RIGGER CURRENT DRUG THERAPY] Onset: 1 Episodic Other and unspecified benign neoplasm (1 source) Lipoma (clinical); Translations: [Benign lipomatous neoplasm, unspecified] 01-02-2024 Episodic Other and unspecified benign neoplasm (1 source) Benign lipomatous neoplasm, unspecified; Translations: [Benign lipomatous neoplasm, unspecified] Onset: 4 Episodic Other connective tissue disease (20 sources) [...] (1 source) Weight loss Onset: 4 Episodic Sprains and strains (1 source) Sprain of unspecified site of right knee, initial encounter; Translations: [SPRAIN UNS SITE RT KNEE INITIAL] Onset: 1 Episodic Results Test Name Value Interpretation Reference Range Facility Ambulatory Visit Summaryon 0 10-04-2024 Ambulatory Visit Summary Ambulatory Visit Summary JORGITO JOVEL :1975 Visit Date:10/04/2024 Ambulatory Visit Instructions Your Diagnosis BPH with obstruction/lower urinary tract symptoms Screening PSA (prostate specific antigen) History of kidney stones Asymptomatic microscopic hematuria Your Care Team Attending Physician - Kiarra Christiansen Primary Care Physician - SHAHBAZ MANCINI DO This Is Your Medications List oxybutynin (oxybutynin 5 mg ER Tab) Contact prescribing physician if questions or concerns acetaminophen-hydrocod one (acetaminophen-hydroco done 325 mg-5 mg oral tablet) atorvastatin (atorvastatin 20 mg Tab) fenofibrate (fenofibrate 160 mg oral tablet) magnesium oxide (magnesium oxide 400 mg Tab) meloxicam (meloxicam 7.5 mg Tab) omeprazole (omeprazole 20 mg Cap-DR) tamsulosin (Flomax 0.4 mg Cap) Procedures Performed 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 Discharge Vitals Temperature (Temporal Artery) 36.9 ???C Heart Rate (Peripheral) 101 Respiratory Rate 16 Blood Pressure 129/89 Height 168 cm Height 66 in Weight 100.5 kg Weight 221.564 lb BMI 35.61 What to do next Scheduled Follow-Up Appointments Tuesday2025 3:00 PM EST With: Where: [facility] [address] [place] [address] [place] [address]- Tuesday2025 3:20 PM EST With: STEVEN PADILLA PA-C Where: [facility] [address] [place] [address]- You Need to Schedule the Following Appointments Follow Up with STEVEN PADILLA PA-C, URL When: In 9 months Comments: w/ PSA Where: [address] [place] [address] Medications What How Much When Why Instructions Unchanged oxybutynin (oxybutynin 5 mg ER Tab) 1 Tablets By Mouth Every day Pickup at [facility] Unchanged acetaminophen-hydrocod one (acetaminophen-hydroco done 325 mg-5 mg oral tablet) TAKE 1 TABLET BY MOUTH EVERY 6 HOURS NEEDED FOR PAIN Contact prescribing physician if questions or concerns Unchanged atorvastatin (atorvastatin 20 mg Tab) TAKE 1 TABLET BY MOUTH EVERY MORNING Contact prescribing physician if questions or concerns Unchanged fenofibrate (fenofibrate 160 mg oral tablet) TAKE 1 TABLET BY MOUTH ONCE DAILY IN THE MORNING Contact prescribing physician if questions or concerns Unchanged magnesium oxide (magnesium oxide 400 mg Tab) TAKE 1 TABLET BY MOUTH IN THE MORNING Contact prescribing physician if questions or concerns Unchanged meloxicam (meloxicam 7.5 mg Tab) 1 Tablets By Mouth Every day TAKE 1 TABLET BY MOUTH TWICE DAILY Contact prescribing physician if questions or concerns Unchanged omeprazole (omeprazole 20 mg Cap-DR) 1 Capsules By Mouth Every day Contact prescribing physician if questions or concerns Unchanged tamsulosin (Flomax 0.4 mg Cap) 1 Capsules By Mouth Every day BPH with obstruction/lower urinary tract symptoms Contact prescribing physician if questions or concerns Pharmacy Information [facility]: [address] [place], [place] [id number] [phone] Allergies No Known Allergies Problems Ongoing - Any problem that you are currently receiving treatment for. BPH with obstruction/lower urinary tract symptoms Hematuria, gross Hyperlipidemia Hypertensive disorder Kidney stone Lipoma Lumbar spondylolisthesis Steatosis of liver Patient Survey You may receive a survey via text or e-mail asking about your office visit. Please share your experience with us by completing your survey. We appreciate your feedback and thank you for choosing us for your care. Education Materials Benign Prostatic Hyperplasia Benign prostatic hyperplasia (BPH) [...] or symptoms? Symptoms of this condition include: ??? Getting up often during the (more content not included)... Normal [facility] Urology Office/Clinic Noteon 10-04-2024 Urology Office/Clinic Note Urology Office/Clinic Note Chief Complaint 4 month follow up HPI Staff 4 month f/u. Pt was to restart Flomax qd at last OV and continue Oxybutynin 5mg qd. PSA 05/24/24 - 0.8 Dx: BPH with obstruction/LUTS, hx of kidney stones, gross hematuria, microhematuria and screening PSA. IPSS: 7, MIRACLE: 22 Denies any urological issues. Pt unable to urinate at this time, last urinated an hour ago (2:00 pm) History of Present Illness Staff HPI reviewed and agree. Review of Systems PHQ Score Initial Depression Screen Score: 0 SCORE no fever, chills, malaise, myalgia. no rash/lesions. no chest pain, palpitations, or SOB. no abdominal pain, nausea, vomiting. no unilateral calf swelling, redness, pain Physical Exam Vitals & Measurements T: 36.9 ???C(Temporal Artery) HR: 101(Peripheral) RR: 16 BP: 129/89 HT: 168 cm HT: 66 in WT: 100.5 kg WT: 221.564 lb BMI: 35.61 General: nontoxic, well-nourished, appears stated age Mouth: moist mucosa Lungs: normal respiratory effort Cardio: regular rate, good distal perfusion Abdomen: nondistended, no suprapubic distention or tenderness, no CVA tenderness Neurologic: Grossly normal Skin: No rashes or suspicious lesions Assessment/Plan 1. BPH with obstruction/lower urinary tract symptoms (N40.1: Benign prostatic hyperplasia with lower urinary tract symptoms) Pt unable to provide UA today PVR 05/24/24 80ml IPSS 7(11), QoL 2(4) Pt here for follow up to BPH. Pt reports that since he has been faithfully taking Flomax and Oxybutynin daily, he has no urological complaints. Pt only c/o post-void dribbling, advised pt to ensure he is taking his time in the restroom to allow full emptying. We again discussed male urologic anatomy including the prostate and how this is likely contributing to his urinary symptoms. We discussed how potential prostate obstruction could affect long-term bladder health and compliance. Pt ok with staying on PO medications at this time but knows the next step would be completing cystoscopy to assess candidacy for MIPPs. Offered to have PCP refill meds, monitor PSA and kidney stones but we made the mutual decision to keep yearly follow up with our office as he has multiple diagnoses that we are monitoring. Pt agreeable to plan. -Continue Flomax 0.4 mg PO daily -Continue Oxybutynin 5 mg PO daily -Timed voids, avoid bladder irritants -F/U June 2025 Ordered: E&M of Est. Patient Moderate 30-39 Min 22997 2. Screening PSA (prostate specific antigen) (Z12.5: Encounter for screening for malignant neoplasm of prostate) PSAs: 05/24/24 - 0.8 Discussed low and stable PSA level as well as importance of continuing annual checks. Pt's father was diagnosed with prostate cancer in his 60's and had prostatectomy. Pt's father is from heart and lung disease. -F/U June 2025 with PSA (recall placed) Ordered: E&M of Est. Patient Moderate 30-39 Min 83434 3. History of kidney stones (Z87.442: Personal history of urinary calculi) 01/08/[address] [facility] ER CT w/o con - mild R hydronephrosis due to a 5mm proximal R ureteral stone near the UPJ. No additional upper or lower urinary tract calculi are seen on either side. There are no other acute findings in the abdomen or pelvis 02/16/24 [facility] - no appreciable urinary tract calculi 03/06/24 IVP - Normal IVP. No residual stone within right ureter. Today, he denies further stone events. Denies gross hematuria. Pt has only had 1 stone event. Briefly discussed completing metabolic workup should patient develop more stones. [facility] -Increase fluids -Add lemon/yavapai-apache to fluid intake -Call our office for any stone symptoms Ordered: E&M of Est. Patient Moderate 30-39 Min 21439 4. Asymptomatic microscopic hematuria (R31.21: Asymptomatic microscopic hematuria) 02/23/24 micro UA - RBC 0-3, cx negative Unable to provide urine sample today -Pt knows to call for gross hematuria Ordered: E&M of Est. Patient Moderate 30-39 Min 89933 Orders: oxybutynin, 5 mg = 1 tab(s), Oral, Daily, # 90 tab(s), Refills(s) 3, Pharmacy: [facility], 168, cm, 10/04/24 14:50:00 EDT, Height/Length Dosing, 100.5, kg, 10/04/24 14:50:00 EDT, Weight Dosing Follow-up With When Contact Information RANDY SWANN, STEVEN John, [place] In 9 months [address] [facility] 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 Medications acetaminophen-hydrocod one 325 mg-5 mg oral tablet atorvastatin 20 mg Tab fenofibrate 160 mg oral tablet Flomax 0.4 mg Cap, 0.4 mg= 1 cap(s), Oral, Daily, 11 refills (more content not included)... [facility] Comment on above: Result Comment: Elec tronically Signed By: Mechelle BARCENAS, Kiarra Gant\.br\Date and Time Signed: 10/04/24 15:14 EDT Reminderson 08-08-2024 Reminders Reminders From: Carlie Ramirez To: EU - Administrative; Sent: 05/24/2024 15:40:45 EST Show up: 07/14/2024 15:40:00 EST Subject: Ambulatory Reminder Due Date/Time: 09/11/2024 15:40:00 EDT Reminder/Recall Patient needs scheduled with AG for a 3-4m f/u in [place], schedule not built for her yet. due back the beginning of September, Pt has been scheduled for 09/2024 w/AG [facility] COMPREHENSIVE METABOLIC PANE Clnit 05-28-2024 Albumin [Mass/Vol] 4.5 g/dL Normal 3.2-5.3 [facility] Comment on above: Performed By: #### C , 45271-9 #### [facility] ([id number]) [address] [place] [address] ALP [Catalytic activity/Vol] 75 U/L Normal 39-130 [facility] Comment on above: Performed By: #### Neyda LAU, 53213-8 #### [facility] ([id number]) [address] [place] [address] ALT [Catalytic activity/Vol] 29 U/L Normal 0-40 [facility] Comment on above: Performed By: #### Neyda LAU, 00998-5 #### [facility] ([id number]) [address], [address] [place] [address] Anion gap [Moles/Vol] 10 mmol/L Normal 5-15 [facility] Comment on above: Performed By: #### Neyda LAU, 39473-2 #### [facility] ([id number]) [address], [address] [place] [address] AST [Catalytic activity/Vol] 28 U/L Normal 0-41 [facility] Comment on above: Performed By: #### Neyda LAU, 90079-2 #### [facility] ([id number]) [address] [place] [address] Bilirubin [Mass/Vol] 0.4 mg/dL Normal 0.3-1.2 [facility] Comment on above: Performed By: #### Neyda LAU, 82894-8 #### [facility] ([id number]) [address], [address] [place] [address] Calcium [Mass/Vol] 10.4 mg/dL Normal 8.5-10.5 [facility] Comment on above: Performed By: #### Neyda LAU 14777-4 #### [facility] ([id number]) [address] [place] [address] Chloride [Moles/Vol] 105 mmol/L Normal 98-109 [facility] Comment on above: Performed By: #### Neyda LAU 48801-6 #### [facility] ([id number]) [address], [address] [place] [address] CO2 [Moles/Vol] 26 mmol/L Normal 22-32 [facility] Comment on above: Performed By: #### Neyda LAU, 46170-9 #### [facility] ([id number]) [address], [address] [place] [address] Creatinine [Mass/Vol] 1.05 mg/dL Normal 0.60-1.30 [facility] Comment on above: Result Comment: METH OD TRACEABLE TO IDMS STANDARD Performed By: #### Neyda LAU, 22430-9 #### [facility] ([id number]) [address] [place] [address] GFR/1.73 sq M.predicted among non-blacks MDRD (S/P/Bld) [Vol rate/Area] 86 mL/min/{1.73_m2} Normal >59 [facility] Comment on above: Result Comment: Reported eGFR is based on the CKD-EPI 2020 equation that does not use a race coefficient. Performed By: #### Neyda LAU, 42482-3 #### [facility] ([id number]) [address], [address] [place] [address] Glucose [Mass/Vol] 132 mg/dL High 65-99 [facility] Comment on above: Performed By: #### Neyda LAU, 92007-8 #### [facility] ([id number]) [address], [address] [place] [address] Potassium [Moles/Vol] 4.2 mmol/L Normal 3.5-5.0 [facility] Comment on above: Performed By: #### Neyda LAU, 02563-3 #### [facility] ([id number]) [address], [address] [place] [address] Protein [Mass/Vol] 7.6 g/dL Normal 6.0-8.0 [facility] Comment on above: Performed By: #### Neyda LAU, 97577-0 #### [facility] ([id number]) [address], [address] [place] [address] Sodium [Moles/Vol] 141 mmol/L Normal 134-146 [facility] Comment on above: Performed By: #### Neyda LAU, 40927-1 #### [facility] ([id number]) [address], [address] [place] [address] Urea nitrogen [Mass/Vol] 18 mg/dL Normal 5-23 [facility] Comment on above: Performed By: #### Neyda LAU, 20999-8 #### [facility] ([id number]) [address], [address] [place] [address] Lipid 1996 panelon 4 Cholesterol [Mass/Vol] 118 mg/dL Low 150-200 [facility] Comment on above: Performed By: #### Neyda LAU, 60606-3 #### [facility] ([id number]) [address], [address] [place] [address] Cholesterol in HDL [Mass/Vol] 27 mg/dL Low >39 [facility] Comment on above: Result Comment: HDL <40 mg/dL - High Risk HDL > or = 40mg/dL- Desirable HDL >60 mg/dL - Negative Risk Performed By: #### Neyda LAU, 92652-7 #### [facility] ([id number]) [address] [place] [address] Cholesterol in LDL [Mass/Vol] 44 mg/dL Normal <130 [facility] Comment on above: Result Comment: LDL <100 mg/dL - Desirable LDL >160 mg/dL - High Risk Performed By: #### C SID, 86898-3 #### [facility] ([id number]) [address] [place] [address] Cholesterol in VLDL [Mass/Vol] 47 mg/dL High 0-30 [facility] Comment on above: Performed By: #### C SID, 60254-5 #### [facility] ([id number]) [address] [place] [address] CHOLESTEROL:HDL 4.4 Normal 1.0-5.0 [facility] Comment on above: Performed By: #### Neyda LAU, 43397-8 #### [facility] ([id number]) [address], [address] [place] [address] Triglyceride [Mass/Vol] 233 mg/dL High 27-150 [facility] [facility] Comment on above: Performed By: #### Neyda LAU, 87099-6 #### [facility] ([id number]) [address], [address] [place] [address] Ambulatory Visit Summaryon 1 07-25-2023 Ambulatory Visit [...] for choosing us for your care. Normal [facility] CHEMISTRYOrdered By: SYSTEM SYSTEM on 05-24-2024 Prostate specific Ag [Mass/Vol] 0.8 ng/mL Normal 0.1 - 3.5 ng/mL [facility] Comment on above: Interpretive Data: T he concentration of PSA determined by different manufacturers can vary due to differences in assay methods and reagent specificity. Values obtained from different assay methods cannot be used interchangeably. The methodology used for this result was chemiluminescence using [employer]'s Access Hybritech PSA reagent. PSA Totalon 05-24-2024 Prostate specific Ag [Mass/Vol] 0.8 ng/mL Normal 0.1-3.5 [facility] Comment on above: Result Comment: The concentration of PSA determined by different manufacturers can vary due to differences in assay methods and reagent specificity. Values obtained from different assay methods cannot be used interchangeably. The methodology used for this result was chemiluminescence using [employer]'s Access Hybritech PSA reagent. Performed By: #### 1 [id number] #### [facility] [address] [place] [address] Urology Office/Clinic Noteon 05-24-2024 Urology Office/Clinic Note [...] (Z87.442: Personal history of urinary calculi) 01/08/[address] [facility] ER CT w/o con - mild [...] stone within right ureter. Pt went to [facility] ER on 01/08/24 due to pain. [...] ensure stone passage. Pt then went to [facility] ER on 02/27/24 for gross hematuria, abdominal/scrotal pain and also experienced urinary frequency and urgency. No labs or imaging were completed at that visit. Advised pt that he most likely was passing a stone at that time. IVP completed 03/06/24, no stone identified. This is patient's first stone event. Today, he denies further stone events. Denies gross hematuria. -Increase fluids -Add lemon/yavapai-apache to fluid intake -Call our office for [...] drawn IO today, will call with results I, Stefany Farooq PA-C personally scribed for Kiarra Min CNP on 05/24/2024 10:48:26. . Follow-up With When Contact Information Kiarra Christiansen, URL Additional Instructions: F/U 3 months Patient Education Prostate Cancer Screening Prostate Cancer Screening Benign Prostatic Hyperplasia Documentation recorded by the ADARSH Méndez accurately reflects the services(s) I performed and decisions made by me. Authentic (more content not included)... [facility] Comment on above: Result Comment: Elec tronically Signed By: Kiarra Christiansen\.br\Date and Time Signed: 05/24/24 11:08 EST\.br\Electronically Co-Signed By: Stefany Farooq PA-C\.br\Date and Time Co-Signed: 05/24/24 10:54 EST Provider Letteron 03-06-2024 Provider Letter Provider Letter March 06, 2024 JORGITO JOVEL [address] [place] [id number] : 1975 To Whom It May Concern, Please excuse above patient from work. Date of appointment: From: 03/06/2024 To: _ May Return to Work On:03/06/2024 Restrictions: none Comments: Any questions, please call our office Sincerely, [facility] [address], [place] [address] [facility] Ambulatory Visit Summaryon 0 03-01-2024 Ambulatory Visit Summary Ambulatory Visit Summary JORGITO JOVEL :1975 Visit Date:03/01/2024 Ambulatory Visit Instructions Your [...] BARCENAS, Kiarra Gant Where: [facility] [address] [place] [address]- Medications What How Much When Why Instructions [...] for choosing us for your care. Normal [facility] Urology Office/Clinic Noteon 03-01-2024 Urology Office/Clinic Note [...] (Z87.442: Personal history of urinary calculi) 01/08/[address] [facility] ER [address] w/o con - mild R hydronephrosis due to a 5mm proximal R ureteral stone near the UPJ. No additional upper or lower urinary tract calculi are seen on either side. There are no other acute findings in the abdomen or pelvis 02/16/24 KUB - no appreciable urinary tract calculi Pt went to [facility] ER on 01/08/24 due to pain. [...] not had pain. Pt then went to [facility] ER on 02/27/24 for gross hematuria, [...] Mt. Dew. Discussed increasing fluids and adding lemon/yavapai-apache to patient's regimen, pt verbalizes understanding. Briefly discussed metabolic workup with patient should he develop another stone. -IVP now at [facility], call patient with results -If a stone is present, we will set patient up with appt with Dr. Nunn to discuss treatment. If no stone on IVP, this will ensure stone passage and pt to follow up as scheduled -Increase fluids, avoid bladder irritants -Add lemon/yavapai-apache, lemonade to fluid intake -Call our office for any stone symptoms -F/U 1 year with KUB/KECIA Ordered: E&M of Est. Patient Moderate 30-39 Min 35810 2. Gross hematuria (R31.0: Gross hematuria) UA today negative for blood or infection -See #1 Ordered: Creatinine E&M of Est. Patient Moderate 30-39 Min 20169 Urnls Dip Stick Auto w/o Microscopy POC 16256 XR IVP 3. BPH with obstruction/lower urinary [...] daily -Increase (more content not included)... Normal [facility] Comment on above: Result Comment: Elec [...] Locations R1: [facility] performed at[facility], [address] [place] [address], [phone] , , [facility] Comment on above: Performed By: #### 2 [id number] #### [facility] [address] [place] [address] Ambulatory Visit Summaryon 0 02-23-2024 Ambulatory Visit [...] With: Kiarra Christiansen Where: [facility] of [address] [address] Medications What How Much When Instructions Unchanged [...] for choosing us for your care. Normal [facility] Provider Letteron 02-23-2024 Provider Letter Provider Letter February 23, 2024 JORGITO JOVEL [address] [place] [id number] : 1975 To Whom It May Concern, Please excuse above patient from work. Date of appointment: From: 02/23/2024 To: _ May Return to Work On:02/23/2024 Restrictions: none Comments: Any questions, please call our office Sincerely, [facility] [address] [facility], [place] [address] Normal [facility] URINALYSISOrdered By: SYSTEM SYSTEM on 02-23-2024 Bilirubin Ql (U) Negative Normal Negativemg/ d L [facility] UA Auto SS Clarity (U) Ex.Turbid *ABN* (02/23/24 11:17 AM) Invalid Interpretation Code Clear [facility] UA Auto SS Color (U) Yellow 1 (02/23/24 11:17 AM) Normal Yellow [facility] UA Auto SS Comment on above: Interpretive Data: M icroscopic readings are only performed on those samples that meet specific criteria set forth by [facility]. Crystals.amorphous Computer assisted Ql (U) Present graded/HPF Invalid Interpretation Code [facility] UA Auto SS Glucose Ql (U) Negative Normal Negativemg/d L [facility] UA Auto SS Hemoglobin Auto test strip (U) [Mass/Vol] Negative Normal Negativemg/d L [facility] Auto SS Ketones Auto test strip Ql (U) Negative Normal Negativemg/d L [facility] UA Auto SS Leukocyte esterase Auto test strip Ql (U) Negative Normal NegativeLeu/ uL [facility]A Auto SS Mucus Auto Ql (U) 1+ graded/LPF Invalid Interpretation Code Negativegrad ed/LPF [facility] UA Auto SS Nitrite Auto test strip Ql (U) Negative Normal Negativemg/d L [facility] UA Auto SS pH (U) 5.0 *NA* (02/23/24 11:17 AM) Invalid Interpretation Code 5.0 - 9.0 [facility] UA Auto SS Protein Ql (U) Negative Normal Negativemg/d L [facility] UA Auto SS RBC Ql (U) 0-3 graded/HPF Normal 0-3graded/HP F [facility] UA Auto SS Specific gravity (U) [Rel density] 1.025 *NA* (02/23/24 11:17 AM) Invalid Interpretation Code 1.005 - 1.030 [facility] UA Auto SS Urobilinogen (U) [Mass/Vol] Negative Normal Negativemg/d L [facility] UA Auto SS URINALYSISOrdered By: Kathy Busch on 02-23-2024 UA Spec Desc Clean Catch (02/23/24 11:17 AM) Normal [facility] UA Auto SS Urinalysis with Microon 02-11 Bilirubin Ql (U) Negative Normal Negative [facility] Comment on above: Performed By: #### 4 [id number] #### [facility] [address] [id number] Clarity (U) Ex.Turbid Abnormal Clear [facility] Comment on above: Performed By: #### 4 [id number] #### [facility] [address] [place] [address] Color (U) Yellow Normal Yellow [facility] Comment on above: Result Comment: Micr oscopic readings are only performed on those samples that meet specific criteria set forth by [facility]. Performed By: #### 4 [id number] #### [facility] [address] [place] [address] Crystals.amorphous Computer assisted Ql (U) Present Abnormal [facility] Comment on above: Performed By: #### 4 [id number] #### [facility] [address] [place] [address] Glucose Ql (U) Negative Normal Negative [facility] Comment on above: Performed By: #### 4 [id number] #### [facility] [address] [place] [address] Hemoglobin Auto test strip (U) [Mass/Vol] Negative Normal Negative [facility] Comment on above: Performed By: #### 4 [id number] #### [facility] [address] [place] [address] Ketones Auto test strip Ql (U) Negative Normal Negative [facility] Comment on above: Performed By: #### 4 [id number] #### [facility] [address] [place] [address] Leukocyte esterase Auto test strip Ql (U) Negative Normal Negative [facility] Comment on above: Performed By: #### 4 [id number] #### [facility] [address] [place] [address] Mucus Auto Ql (U) 1+ CD:[id number] Abnormal Negative F [facility] Comment on above: Performed By: #### 4 [id number] #### [facility] [address] [place] [address] Nitrite Auto test strip Ql (U) Negative Normal Negative [facility] Comment on above: Performed By: #### 4 [id number] #### [facility] [address] [place] [address] pH (U) 5.0 [pH] Invalid Interpretation Code 5.0-9.0 [facility] Comment on above: Performed By: #### 4 [id number] #### [facility] [address] [place] [address] Protein Ql (U) Negative Normal Negative [facility] Comment on above: Performed By: #### 4 [id number] #### [facility] [address] [place] [address] RBC Ql (U) 0-3 Normal 0-3 [facility] Comment on above: Performed By: #### 4 [id number] #### [facility] [address] [place] [address] Specific gravity (U) [Rel density] 1.025 Invalid Interpretation Code 1.005-1.030 [facility] Comment on above: Performed By: #### 4 [id number] #### [facility] [address] [place] [address] Urobilinogen (U) [Mass/Vol] Negative Normal Negative [facility] Comment on above: Performed By: #### 4 [id number] #### [facility] [address] [place] [address] Type of Urine collection method Clean Catch Normal [facility] Comment on above: Performed By: #### 4 [id number] #### [facility] [address] [place] [address] COMPREHENSIVE METABOLIC PANE [facility] 08-30-2023 Albumin [Mass/Vol] 4.1 g/dL Normal 3.2-5.3 [facility] Comment on above: Performed By: #### C SID, #### [facility] ([id number]) [address], [address] [place] [address] ALP [Catalytic activity/Vol] 32 U/L Low 39-130 [facility] Comment on above: Performed By: #### C SID, #### [facility] ([id number]) [address], [address] [place] [address] ALT [Catalytic activity/Vol] 58 U/L High 0-40 [facility] Comment on above: Performed By: #### C SID, #### [facility] ([id number]) [address], [address] [place] [address] Anion gap [Moles/Vol] 9 mmol/L Normal 5-15 [facility] Comment on above: Performed By: #### Neyda LAU, #### [facility] ([id number]) [address], [address] [place] [address] AST [Catalytic activity/Vol] 40 U/L Normal 0-41 [facility] Comment on above: Performed By: #### Neyda LAU, #### [facility] ([id number]) [address] [place] [address] Bilirubin [Mass/Vol] 0.3 mg/dL Normal 0.3-1.2 [facility] Comment on above: Performed By: #### Neyda LAU, #### [facility] ([id number]) [address], [address] [place] [address] Calcium [Mass/Vol] 9.7 mg/dL Normal 8.5-10.5 [facility] Comment on above: Performed By: #### Neyda LAU, #### [facility] ([id number]) [address] [place] [address] Chloride [Moles/Vol] 107 mmol/L Normal 98-109 [facility] Comment on above: Performed By: #### Neyda LAU, #### [facility] ([id number]) [address] [place] [address] CO2 [Moles/Vol] 26 mmol/L Normal 22-32 [facility] Comment on above: Performed By: #### Neyda LAU, #### [facility] ([id number]) [address], [address] [place] [address] Creatinine [Mass/Vol] 1.18 mg/dL Normal 0.60-1.30 [facility] Comment on above: Result Comment: METH OD TRACEABLE TO IDMS STANDARD Performed By: #### Neyda LAU, #### [facility] ([id number]) [address], [address] [place] [address] GFR/1.73 sq M.predicted among non-blacks MDRD (S/P/Bld) [Vol rate/Area] 75 mL/min/{1.73_m2} Normal >59 [facility] Comment on above: Result Comment: Reported eGFR is based on the CKD-EPI 2020 equation that does not use a race coefficient. Performed By: #### Neyda LAU, #### [facility] ([id number]) [address], [address] [place] [address] Glucose [Mass/Vol] 92 mg/dL Normal 65-99 [facility] Comment on above: Performed By: #### Neyda LAU, #### [facility] ([id number]) [address] [place] [address] Potassium [Moles/Vol] 4.1 mmol/L Normal 3.5-5.0 [facility] Comment on above: Performed By: #### Neyda LAU, #### [facility] ([id number]) [address], [address] [place] [address] Protein [Mass/Vol] 6.8 g/dL Normal 6.0-8.0 [facility] Comment on above: Performed By: #### Neyda LAU, #### [facility] ([id number]) [address], [address] [place] [address] Sodium [Moles/Vol] 142 mmol/L Normal 134-146 [facility] Comment on above: Performed By: #### Neyda LAU, #### [facility] ([id number]) [address] [place] [address] Urea nitrogen [Mass/Vol] 23 mg/dL Normal 5-23 [facility] Comment on above: Performed By: #### Neyda LAU, #### [facility] ([id number]) [address] [place] [address] Comprehensive metabolic pane clint 08-30-2023 Albumin [Mass/Vol] 4.1 g/dL 3.2 - 5.3 g/dL [facility] ALP [Catalytic activity/Vol] 32 U/L Low 39 - 130 U/L [facility] ALT No additional P-5'-P [Catalytic activity/Vol] 58 U/L High 0 - 40 U/L [facility] Anion gap [Moles/Vol] 9 mmol/L 5 - 15 mmol/L [facility] AST [Catalytic activity/Vol] 40 U/L 0 - 41 U/L [facility] Bilirubin [Mass/Vol] 0.3 mg/dL 0.3 - 1 .2 mg/dL [facility] Calcium [Mass/Vol] 9.7 mg/dL 8.5 - 10. 5 mg/dL [facility] Chloride [Moles/Vol] 107 mmol/L 98 - 10 9 mmol/L [facility] CO2 [Moles/Vol] 26 mmol/L 22 - 32 mmol/L [facility] Creatinine [Mass/Vol] 1.18 mg/dL 0.60 - 1.30 mg/dL [facility] Comment on above: METHOD TRACEABLE TO [facility] STANDARD eGFR (CKD-EPI)non-race dependent 75 - PINF [facility] Comment on above: Reported eGFR is based on the CKD-EPI 2020 equation that does not use a race coefficient. Glucose [Mass/Vol] 92 mg/dL 65 - 99 mg/dL [facility] Potassium [Moles/Vol] 4.1 mmol/L 3.5 - 5.0 mmol/L [facility] Protein [Mass/Vol] 6.8 g/dL 6.0 - 8.0 g/dL [facility] Sodium [Moles/Vol] 142 mmol/L 134 - 146 mmol/L [facility] Urea nitrogen [Mass/Vol] 23 mg/dL 5 - 23 mg/dL [facility] MAGNESIUMon 08-30-2023 Magnesium [Mass/Vol] 1.7 mg/dL Low 1.8-2.6 [facility] Comment on above: Performed By: #### C , 12211-4 #### [facility] ([id number]) [address] [facility] [address], [address] [place] [address] Magnesiumon 08-30-2023 Magnesium [Mass/Vol] 1.7 mg/dL Low 1.8 - 2 .6 mg/dL [facility] No Panel Informationon 08-29 Interpretation and review of laboratory results Abnormal [facility] COVID Quick Testingon 2021 Result Negative [employer] Other COMPREHENSIVE METABOLIC PANE [facility] 06-02-2021 Albumin [Mass/Vol] 4.2 g/dL Normal 3.6-5.1 [facility] Comment on above: Performed By: #### 1 023, 7250 #### [facility] [place] [address] [employer]: Curtis Doan MD Albumin/Globulin [Mass ratio] 1.6 {ratio} Normal 1.0-2.5 [facility] Comment on above: Performed By: #### 1 023, 7600 #### [facility] [place] [address] [employer]: Curtis Doan MD ALP [Catalytic activity/Vol] 44 U/L Normal 36-130 [facility] Comment on above: Performed By: #### 1 0231, 7600 #### [facility] [place] [address] [employer]: Curtis Doan MD ALT [Catalytic activity/Vol] 17 U/L Normal 9-46 [facility] Comment on above: Performed By: #### 1 0231, 7600 #### [facility] [place] [address] [employer]: Curtis Doan MD AST [Catalytic activity/Vol] 17 U/L Normal 10-40 [facility] Comment on above: Performed By: #### 1 0231, 7600 #### [facility] [place] [address] [employer]: Curtis Doan MD Bilirubin [Mass/Vol] 0.3 mg/dL Normal 0.2-1.2 [facility] Comment on above: Performed By: #### 1 0231, 7600 #### [facility] [place] [address] [employer]: Curtis Doan MD Calcium [Mass/Vol] 9.6 mg/dL Normal 8.6-10.3 [facility] Comment on above: Performed By: #### 1 023, 7600 #### [facility] [place] [address] [employer]: Curtis Doan MD Chloride [Moles/Vol] 107 mmol/L Normal 98-110 [facility] Comment on above: Performed By: #### 1 023, 7600 #### [facility] [place] [address] [employer]: Curtis Doan MD CO2 [Moles/Vol] 26 mmol/L Normal 20-32 [facility] Comment on above: Performed By: #### 1 023, 7600 #### [facility] [place] [address] [employer]: Curtis Doan MD Creatinine [Mass/Vol] 0.89 mg/dL Normal 0.60-1.35 [facility] Comment on above: Performed By: #### 1 023, 7600 #### [facility] [place] [address] [employer]: Curtis Doan MD eGFR NON-AFR. TONGAN 101 mL/min/1.73m2 Normal > OR = 60 [facility] Comment on above: Performed By: #### 1 0231, 7600 #### [facility] [place] [address] [employer]: Curtis Doan MD GFR/1.73 sq M.predicted among blacks MDRD (S/P/Bld) [Vol rate/Area] 117 mL/min/{1.73_m2} Normal > OR = 60 [facility] Comment on above: Performed By: #### 1 023, 7600 #### [facility] of [address], [address] [place] [address] [employer]: Curtis Doan MD Globulin (S) [Mass/Vol] 2.7 g/dL Normal 1.9-3.7 [facility] Comment on above: Performed By: #### 1 023, 7600 #### [facility] of [address], [address] [place] [address] [employer]: Curtis Doan MD Glucose [Mass/Vol] 103 mg/dL Normal 65-139 [facility] Comment on above: Result Comment: Non-fasting reference interval For someone without known diabetes, a glucose value between 100 and 125 mg/dL is consistent with prediabetes and should be confirmed with a follow-up test. Performed By: #### 1 023, 7600 #### [facility] of [address], [address] [place] [address] [employer]: Curtis Doan MD Potassium [Moles/Vol] 4.1 mmol/L Normal 3.5-5.3 [facility] Comment on above: Performed By: #### 1 023, 7600 #### [facility] of [address], [address] [place] [address] [employer]: Curtis Doan MD Protein [Mass/Vol] 6.9 g/dL Normal 6.1-8.1 [facility] Comment on above: Performed By: #### 1 023, 7600 #### [facility] [address], [address] [place] [address] [employer]: Curtis Doan MD Sodium [Moles/Vol] 140 mmol/L Normal 135-146 [facility] Comment on above: Performed By: #### 1 023, 7600 #### [facility] [address], [address] [place] [address] [employer]: Curtis Doan MD Urea nitrogen [Mass/Vol] 27 mg/dL High 7- [facility] Comment on above: Performed By: #### 1 0231, 7600 #### [facility] [address], [address] [place] [address] [employer]: Curtis Doan MD Urea nitrogen/Creatinine [Mass ratio] 30 mg/mg High 6- [facility] Comment on above: Performed By: #### 1 023, 7600 #### [facility] [address], [address] [place] [address] [employer]: Curtis Doan MD LIPID PANEL, [facility] 12-2 Cholesterol [Mass/Vol] 123 mg/dL Normal <200 [facility] Comment on above: Order Comment: FASTI NG:NO FASTING: NO Performed By: #### 1 023, 7600 #### [facility] [address], [address] [place] [address] [employer]: Curtis Doan MD Cholesterol in HDL [Mass/Vol] 29 mg/dL Low > OR = 40 [facility] Comment on above: Order Comment: FASTI NG:NO FASTING: NO Performed By: #### 1 023, 7600 #### [facility] [place] [address] [employer]: Curtis Doan MD Cholesterol in LDL [Mass/Vol] [...] LDL-C. Noman GAR et al. EARNESTINE. 2013;310(19): 8076-9756 (http://education.[employer]/faq/AZM132) Performed By: #### 1 023, 0 #### [facility] [address], [address] [place] [address] [employer]: Curtis Doan MD Cholesterol.total/Ch olesterol in HDL [Mass ratio] 4.2 {ratio} Normal <5.0 [facility] Comment on above: Order Comment: FASTI NG:NO FASTING: NO Performed By: #### 1 0231, 7600 #### [facility] [address], [address] [place] [address] [employer]: Curtis Doan MD NON HDL CHOLESTEROL 94 mg/dL (calc) Normal <130 [facility] Comment on above: Order Comment: FASTI NG:NO FASTING: NO Result Comment: For patients with diabetes plus 1 major ASCVD risk factor, treating to a non-HDL-C goal of <100 mg/dL (LDL-C of <70 mg/dL) is considered a therapeutic option. Performed By: #### 1 023, 0 #### [facility] [address], [address] [place] [address] [employer]: Curtis Doan MD Triglyceride [Mass/Vol] 397 mg/dL High <150 [facility] Comment on above: Order Comment: FASTI NG:NO FASTING: NO Result Comment: If a non-fasting specimen was collected, consider repeat triglyceride testing on a fasting specimen if clinically indicated. Alex et al. J. of Clin. Lipidol. 2015;9:129-169. Performed By: #### 1 023, 0 #### [facility] [address], [address] [place] [address] Gardener Florist: Curtis Doan MD CBC AUTO DIFFon 05-15-2021 BASO # 0.0 103/ul Normal 0.0-0.1 [facility] Comment on above: Performed By: #### C BC #### [facility] [address] [place], [place] [address] Dr. Diego Covarrubias Basophils/100 WBC (Bld) 0.5 % Normal 0.2-2.0 [facility] Comment on above: Performed By: #### C BC #### [facility] [address] [place] [address] Dr. Diego Covarrubias EO # 0.1 103/ul Normal 0.0-0.7 [facility] Comment on above: Performed By: #### C BC #### [facility] [address] [place] [address] Dr. Diego Covarrubias Eosinophils/100 WBC (Bld) 1.5 % Normal 0.9-7.0 [facility] Comment on above: Performed By: #### C BC #### [facility] [address] [place] [address] Dr. Diego Covarrubias Erythrocyte distribution width (RBC) [Ratio] 12.6 % Normal 11.0-15.0 [facility] Comment on above: Performed By: #### C BC #### [facility] [address] [place] [address] Dr. Diego Covarrubias Hematocrit (Bld) [Volume fraction] 41.9 % Critically low 42.0-54.0 [facility] Comment on above: Performed By: #### C BC #### [facility] [address] [place] [address] Dr. Diego Covarrubias Hemoglobin (Bld) [Mass/Vol] 14.2 g/dL Normal 14.0-18.0 [facility] Comment on above: Performed By: #### C BC #### [facility] [address] [place] [address] Dr. Diego Covarrubias IG # 0.03 10e3/ul Normal 0.00-0.03 [facility] Comment on above: Performed By: #### C BC #### [facility] [address] [place] [address] Dr. Diego Covarrubias IG % 0.5 % Normal 0.0-0.5 [facility] Comment on above: Performed By: #### C BC #### [facility] [address] [place] [address] Dr. Diego Covarrubias LYMPH # 2.0 103/ul Normal 1.2-3.8 [facility] Comment on above: Performed By: #### C BC #### [facility] [address] [place] [address] Dr. Diego Covarrubias Lymphocytes/100 WBC (Bld) 32.1 % Normal 20.5-60.0 [facility] Comment on above: Performed By: #### C BC #### [facility] [address] [place] [address] Dr. Diego Coavrrubias MANUAL DIFF REQ NO Normal [facility] Comment on above: Performed By: #### C BC #### [facility] [address] [place] [address] Dr. Diego Covarrubias MCH (RBC) [Entitic mass] 31.5 pg Normal 25.9-34.0 [facility] Comment on above: Performed By: #### C BC #### [facility] [address] [place] [address] Dr. Diego Covarrubias MCHC (RBC) [Mass/Vol] 33.9 g/dL Normal 29.9-35.2 [facility] Comment on above: Performed By: #### C BC #### [facility] [address] [place] [address] Dr. Diego Covarrubias MCV (RBC) [Entitic vol] 92.9 fL Normal 80.0-94.0 [facility] Comment on above: Performed By: #### C BC #### [facility] [address] [place] [address] Dr. Diego Covarrubias MONO # 0.8 103/ul Normal 0.3-0.8 [facility] Comment on above: Performed By: #### C BC #### [facility] [address] [place] [address] Dr. Diego Covarrubias Monocytes/100 WBC (Bld) 13.5 % Critically high 1.7-12.0 [facility] Comment on above: Performed By: #### C BC #### [facility] [address] [place] [address] Dr. Diego Covarrubias NEUT # 3.2 103/ul Normal 1.4-6.5 [facility] Comment on above: Performed By: #### C BC #### [facility] [address] [place] [address] Dr. Diego Covarrubias Neutrophils/100 WBC (Bld) 51.9 % Normal 43.0-75.0 [facility] Comment on above: Performed By: #### C BC #### [facility] [address] [place] [address] [address] Diego Covarrubias Platelet mean volume (Bld) [Entitic vol] 9.6 fL Normal 9.5-13.5 [facility] Comment on above: Performed By: #### C BC #### [facility] [address] [place] [address] [address] Diego Covarrubias PLT 244 103/ul Normal 150-450 [facility] Comment on above: Performed By: #### C BC #### [facility] [address] [place] [address] [address] Diego Covarrubias RBC 4.51 106/ul Critically low 4.70-6.10 [facility] Comment on above: Performed By: #### C BC #### [facility] [address] [place] [id number] Diego Covarrubias WBC 6.2 103/ul Normal 4.0-11.0 [facility] Comment on above: Performed By: #### C BC #### [facility] [address] [place] [address] SINUS WO CONTRASTon [...] probablychronic. Clinical correlation recommended.Electronic ally signed by: DO Narcisa BYRD [facility] Initial Visit (Otolaryngolog y)on 11-21-2017 Initial Visit (Otolaryngology) Chief ComplaintThis is a new patient that is here for possible deviated septum History of Present IllnessMarneyda Mony is here for a new patient consultation for his chronic sinus infections. He was referred by Dr. Garcia at [facility] Pt reports repeat sinus infections. Jorgito states [...] BusPIRone HCl - 15 MG Oral Tablet;Therapy: [id number] to Recorded Dispense: 0 Days ; #: Sufficient Tablet; Refill: 0; ELENITA = N; Record; Last Updated By: Amisha Matias; 11/09/2017 1:27:18 PM Vitals Vital Signs Recorded: 09Nov2017 01:70KZFusgsr9 ft 7 abDmlvea691 lb BMI Temxknfqlr56.75BSA Calculated2.19 Physical ExamPhysical Examination:A detailed examination of [...] concerned about his sinuses. ProcedureNASAL ENDOSCOPY (CPT 40744):To better evaluate the patient's symptoms sinonasal endoscopy [...] CT Sinus without Contrast; Status:Active; Requested for:23Nov2017; Perform:[facility];Ordered; For:Chronic sinusitis; Ordered By:Christina Apodaca;Reason: Unspecified for CT Sinus without ContrastRadiologist to Determine Optimal Study : YRequesting physician's phone/pager number? : [phone] Alerts (ie: MRSA, TB, Diabetic) : diabeticWhat are the patient's signs and symptoms? : left sided sinus pressure/pain, left frontal headache Provider Impressions1. Subtotal nasal perforation2. Chronic rhinosinusitis symptomsDiscussion:Mar c and I had a long discussion with [...] MedsBusPIRone HCl - 15 MG Oral Tablet;Therapy: [id number] to Recorded Signatures Electronically signed by : Christina Apodaca MD; Nov 21 2017 7:37AM EST (Author) Normal [employer] Vital Signs Date Time Vital Sign Value Performing Clinician Facility 09-13-2024 16:16-0400 Body height 166.1 cm Shahbaz AlfonsoAdexLink DO [facility] 09-13-2024 16:16-0400 Body mass index (BMI) [Ratio] 36.76 kg/m2 Shahbaz ArthurVandas Group DO [facility] 09-13-2024 16:16-0400 Body temperature 97.9 [degF] Shahbaz Mancini DO [facility] 09-13-2024 16:16-0400 Body weight 101.42 kg Shahbaz AlfonsoAdexLink DO Work Phone: [facility] 09-13-2024 16:16-0400 Diastolic blood pressure 70 mm[Hg] Shahbaz Furlong DO Work Phone: [facility] 09-13-2024 16:16-0400 Heart rate 100 /min Shahbaz Furlong DO Work Phone: [facility] 09-13-2024 16:16-0400 Respiratory rate 18 /min Shahbaz Furlong DO Work Phone: [facility] 09-13-2024 16:16-0400 SaO2% (BldA) [Mass fraction] 98 % Shahbaz Furlong DO Work Phone: [facility] 09-13-2024 16:16-0400 Systolic blood pressure 90 mm[Hg] Shahbaz Furlong DO Work Phone: [facility] [employer] [facility] 07-27-2024 11:22-0500 Body height 166.1 cm Shahbaz Furlong DO Work Phone: [facility] 07-27-2024 11:22-0500 Body mass index (BMI) [Ratio] 37.12 kg/m2 Shahbaz Furlong DO Work Phone: [facility] 07-27-2024 11:22-0500 Body temperature 98.1 [degF] Shahbaz Furlong DO Work Phone: [facility] [employer] [facility] 07-27-2024 11:22-0500 Body weight 102.42 kg Shahbaz Furlong DO Work Phone: [facility] [employer] [facility] 07-27-2024 11:22-0500 Diastolic blood pressure 84 mm[Hg] Shahbaz Furlong DO Work Phone: [facility] 07-27-2024 11:22-0500 Heart rate 112 /min Shahbaz Furlong DO Work Phone: [facility] [employer] [facility] 07-27-2024 11:22-0500 Respiratory rate 18 /min Shahbaz Furlong DO Work Phone: [facility] [employer] [facility] 07-27-2024 11:22-0500 SaO2% (BldA) [Mass fraction] 98 % Shahbaz Arthurlong DO Work Phone: [facility] [employer] [facility] 07-27-2024 11:22-0500 Systolic blood pressure 118 mm[Hg] Shahbaz Arthurlong DO Work Phone: [facility] 05-24-2024 09:09-0500 Blood Pressure Location Kiarra Galea [facility] 05-24-2024 09:09-0500 Diastolic blood pressure 88 mm[Hg] Kiarra Galea [facility] 05-24-2024 09:09-0500 Heart rate 76 /min Kiarra Galea [facility] 05-24-2024 09:09-0500 Systolic blood pressure 138 mm[Hg] Kiarra Galea [facility] 04-03-2024 16:38-0400 Body height 165.1 cm Shahbaz Arthurlong DO Work Phone: [facility] 04-03-2024 16:38-0400 Body mass index (BMI) [Ratio] 36.94 kg/m2 Shahbaz Arthurlong DO Work Phone: [facility] 04-03-2024 16:38-0400 Body temperature 98.1 [degF] Shahbaz Arthurlong DO Work Phone: [facility] [facility] 04-03-2024 16:38-0400 Body weight 100.7 kg Shahbaz Furlong DO Work Phone: [facility] [facility] 04-03-2024 16:38-0400 Diastolic blood pressure 68 mm[Hg] Shahbaz Furlong DO Work Phone: [facility] 04-03-2024 16:38-0400 Heart rate 83 /min Shahbaz Furlong DO Work Phone: [facility] [facility] 04-03-2024 16:38-0400 Respiratory rate 18 /min Shahbaz Furlong DO Work Phone: [facility] 04-03-2024 16:38-0400 SaO2% (BldA) [Mass fraction] 97 % Shahbaz Furlong DO Work Phone: [facility] 04-03-2024 16:38-0400 Systolic blood pressure 110 mm[Hg] Shahbaz Furlong DO Work Phone: [facility] [facility] 03-01-2024 15:10-0400 Blood Pressure Location Kiarra Galea [facility] 03-01-2024 15:10-0400 Body temperature 98.6 [degF] Kiarra Galea [facility] 03-01-2024 15:10-0400 Diastolic blood pressure 85 mm[Hg] Kiarra Galea [facility] 03-01-2024 15:10-0400 Heart rate 69 /min Kiarra Galea [facility] 03-01-2024 15:10-0400 Respiratory rate 17 /min Kiarra Galea [facility] 03-01-2024 15:10-0400 Systolic blood pressure 121 mm[Hg] Kiarra Galea [facility] 02-23-2024 10:08-0400 Blood Pressure Location Kiarra Galea [facility] 02-23-2024 10:08-0400 Diastolic blood pressure 88 mm[Hg] Kiarra Galea [facility] 02-23-2024 10:08-0400 Heart rate 82 /min Kiarra Galea [facility] 02-23-2024 10:08-0400 Systolic blood pressure 134 mm[Hg] Kiarra Galea [facility] 01-19-2024 15:25-0400 Body height 165.1 cm Jorge Christopher RECOVERY UNIT OPERATOR-CLAIMS ASSOCIATE Work Phone: [facility] [employer] [facility] 01-19-2024 15:25-0400 Body mass index (BMI) [Ratio] 37.67 kg/m2 Jorgeany Gibbs RECOVERY UNIT OPERATOR-CLAIMS ASSOCIATE Work Phone: [facility] 01-19-2024 15:25-0400 Body temperature 98.01 [degF] Jorge Christopher RECOVERY UNIT OPERATOR-CLAIMS ASSOCIATE Work Phone: [facility] [employer] [facility] 01-19-2024 15:25-0400 Body weight 102.69 kg Jorge Christopher RECOVERY UNIT OPERATOR-CLAIMS ASSOCIATE Work Phone: [facility] [employer] [facility] 01-19-2024 15:25-0400 Diastolic blood pressure 70 mm[Hg] Jorge Christopher RECOVERY UNIT OPERATOR-CLAIMS ASSOCIATE Work Phone: [facility] [employer] [facility] 01-19-2024 15:25-0400 Heart rate 112 /min Jorge Christopher RECOVERY UNIT OPERATOR-CLAIMS ASSOCIATE Work Phone: [facility] [employer] [facility] 01-19-2024 15:25-0400 SaO2% (BldA) [Mass fraction] 97 % Jorge Christopher RECOVERY UNIT OPERATOR-CLAIMS ASSOCIATE Work Phone: [facility] [employer] [facility] 01-19-2024 15:25-0400 Systolic blood pressure 124 mm[Hg] Jorge Christopher RECOVERY UNIT OPERATOR-CLAIMS ASSOCIATE Work Phone: [facility] [employer] [facility] 01-02-2024 16:09-0400 Body height 165.1 cm Shahbaz Furlong DO Work Phone: [facility] [employer] [facility] 01-02-2024 16:09-0400 Body mass index (BMI) [Ratio] 38.31 kg/m2 Shahbaz Furlong DO Work Phone: [facility] [employer] 01-02-2024 16:09-0400 Body temperature 98.4 [degF] Shahbaz Furlong DO Work Phone: [facility] [employer] [facility] 01-02-2024 16:09-0400 Body weight 104.42 kg Shahbaz Furlong DO Work Phone: [facility] [employer] [facility] 01-02-2024 16:09-0400 Diastolic blood pressure 80 mm[Hg] Shahbaz Furlong DO Work Phone: [facility] [employer] [facility] 01-02-2024 16:09-0400 Heart rate 95 /min Shahbaz Furlong DO Work Phone: [facility] [employer] 01-02-2024 16:09-0400 SaO2% (BldA) [Mass fraction] 98 % Shahbaz Furlong DO Work Phone: [facility] [employer] 01-02-2024 16:09-0400 Systolic blood pressure 120 mm[Hg] Shahbaz Furlong DO Work Phone: [facility] [employer] [facility] 10-10-2023 16:11-0400 Body height 165.1 cm Josie Grande RECOVERY UNIT OPERATOR-PRACTICE SPECIALIST Work Phone: [facility] [employer] 10-10-2023 16:11-0400 Body mass index (BMI) [Ratio] 39.8 kg/m2 Josie Grande RECOVERY UNIT OPERATOR-PRACTICE SPECIALIST Work Phone: [facility] [employer] [facility] 10-10-2023 16:11-0400 Body temperature 98.1 [degF] Josie Grande RECOVERY UNIT OPERATOR-PRACTICE SPECIALIST Work Phone: [facility] 10-10-2023 16:11-0400 Body weight 108.5 kg Josie Grande RECOVERY UNIT OPERATOR-PRACTICE SPECIALIST Work Phone: [facility] 10-10-2023 16:11-0400 Diastolic blood pressure 80 mm[Hg] Josie Grande RECOVERY UNIT OPERATOR-PRACTICE SPECIALIST Work Phone: [facility] 10-10-2023 16:11-0400 Heart rate 100 /min Josie Grande RECOVERY UNIT OPERATOR-PRACTICE SPECIALIST Work Phone: [facility] 10-10-2023 16:11-0400 Respiratory rate 18 /min Josie Grande RECOVERY UNIT OPERATOR-PRACTICE SPECIALIST Work Phone: [facility] 10-10-2023 16:11-0400 SaO2% (BldA) [Mass fraction] 96 % Josie Grande APRN-PRACTICE SPECIALIST Work Phone: [facility] 10-10-2023 16:11-0400 Systolic blood pressure 110 mm[Hg] Josie Grande RECOVERY UNIT OPERATOR-PRACTICE SPECIALIST Work Phone: [facility] 08-30-2023 15:51-0400 Body height 165.1 cm Josie Grande RECOVERY UNIT OPERATOR-PRACTICE SPECIALIST Work Phone: [facility] 08-30-2023 15:51-0400 Body mass index (BMI) [Ratio] 40 kg/m2 Josie Grande RECOVERY UNIT OPERATOR-PRACTICE SPECIALIST Work Phone: [facility] 08-30-2023 15:51-0400 Body temperature 98.1 [degF] Josie Grande RECOVERY UNIT OPERATOR-PRACTICE SPECIALIST Work Phone: [facility] 08-30-2023 15:51-0400 Body weight 109.05 kg Josie Grande RECOVERY UNIT OPERATOR-PRACTICE SPECIALIST Work Phone: [facility] 08-30-2023 15:51-0400 Diastolic blood pressure 70 mm[Hg] Josie Grande RECOVERY UNIT OPERATOR-PRACTICE SPECIALIST Work Phone: [facility] [employer] 08-30-2023 15:51-0400 Heart rate 107 /min Josie DALEY [facility] 08-30-2023 15:51-0400 Respiratory rate 18 /min Josie DALEY Work Phone: [facility] 08-30-2023 15:51-0400 SaO2% (BldA) [Mass fraction] 98 % Josie DALEY Work Phone[facility] 08-30-2023 15:51-0400 Systolic blood pressure 120 mm[Hg] Josie DALEY Work Phone: [facility] [employer] 08-04-2023 14:27-0500 Body height 165.1 cm Shahbaz Furlong DO [facility] Phone[facility] 08-04-2023 14:27-0500 Body mass index (BMI) [Ratio] 40.25 kg/m2 Shahbaz Furlong DO [facility] Phone[facility] 08-04-2023 14:27-0500 Body temperature 98.6 [degF] Shahbaz Furlong DO [facility] Phone[facility] 08-04-2023 14:27-0500 Body weight 109.72 kg Shahbaz Furlong DO [facility] 08-04-2023 14:27-0500 Diastolic blood pressure 68 mm[Hg] Shahbaz Furlong DO [facility] 08-04-2023 14:27-0500 Heart rate 100 /min Shahbaz Furlong DO [facility] Phone[facility] 08-04-2023 14:27-0500 SaO2% (BldA) [Mass fraction] 97 % Shahbaz Furlong DO [facility] Phone[facility] 08-04-2023 14:27-0500 Systolic blood pressure 110 mm[Hg] Shahbaz Mancini DO Work Phone[facility] 06-21-2023 16:30-0500 Body height 165.1 cm Josie Grande APRN-PRACTICE SPECIALIST Work Phone: [facility] 06-21-2023 16:30-0500 Body mass index (BMI) [Ratio] 39.51 kg/m2 Josie Grande APRN-PRACTICE SPECIALIST [facility] 06-21-2023 16:30-0500 Body temperature 98.29 [degF] Josie Grande APRN-PRACTICE SPECIALIST Work Phone[facility] 06-21-2023 16:30-0500 Body weight 107.68 kg Josie Grande APRN-PRACTICE SPECIALIST Work Phone[facility] 06-21-2023 16:30-0500 Diastolic blood pressure 66 mm[Hg] Josie Grande APRN-PRACTICE SPECIALIST Work Phone[facility] 06-21-2023 16:30-0500 Heart rate 98 /min Josie HANDPRACTICE SPECIALIST Work Phone[facility] 06-21-2023 16:30-0500 SaO2% (BldA) [Mass fraction] 95 % Josie Grande APRN-PRACTICE SPECIALIST [facility] Phone[facility] 06-21-2023 16:30-0500 Systolic blood pressure 102 mm[Hg] Josie Grande APRN-PRACTICE SPECIALIST Work Phone: [employer] 06-16-2021 11:30-0500 Body height 167.64 cm Kendy Patino Other [employer] Other 06-16-2021 11:30-0500 Body mass index (BMI) [Ratio] 36.31 kg/m2 Kendy Patino Other [employer] Other 06-16-2021 11:30-0500 Body temperature 98.6 [degF] Kendy Patino Other [employer] Other 06-16-2021 11:30-0500 Body weight 102.06 kg Kendy Patino Other [employer] Other 06-16-2021 11:30-0500 Respiratory rate 20 /min Kendy Patino Other [employer] Other 06-16-2021 11:30-0500 SaO2% (BldA) [Mass fraction] 98 % Kendy Patino Other [employer] Other Encounters Encounter Date Encounter Type Care Provider Facility Start: 07-01-2025 ambulatory STEVEN Landa ty: [facility] Start: 06-24-2025 ambulatory STEVEN Landa ty:[facility] Start: 10-04-2024 End: 10-04-2024 ambulatory Kiarra Min Facility:[facility] Start: 09-17-2024 End: 09-17-2024 ambulatory [facility] Start: 09-13-2024 End: 09-13-2024 Office outpatient visit 25 minutes Shahbaz Mancini DO Work Phone: [facility] Comment on above: Lumbar disc prolapse with compression radiculopathy (Primary Dx); Class 2 severe obesity due to excess calories with serious comorbidity and body mass index (BMI) of 36.0 to 36.9 in adult ([facility]); Essential hypertension; Gastroesophageal reflux disease, unspecified whether esophagitis present Start: 09-13-2024 End: 09-13-2024 ambulatory SHAHBAZ MANCINI [facility] Start: 08-27-2024 End: 08-27-2024 [facility] Start: 08-20-2024 End: 08-20-2024 ambulatory Chrissy Conway MD Facility: [facility] Start: 08-11-2024 End: 08-11-2024 Orders Only Shahbaz Mancini DO [facility] Comment on above: Lumbar disc prolapse with compression radiculopathy (Primary Dx) Start: 08-08-2024 End: 08-08-2024 Refill Shahbaz Mancini DO [facility] Comment on above: Spondylolisthesis, l umbar region Start: 07-27-2024 End: 07-27-2024 Office outpatient visit 15 minutes Shahbaz Mancini DO [facility] Comment on above: Lumbar disc prolapse with compression radiculopathy (Primary Dx) Start: 07-27-2024 End: 07-27-2024 ambulatory [facility] Start: 06-26-2024 End: 06-27-2024 Telephone encounter Kaila Beck CMA [facility] Start: 05-31-2024 End: 05-31-2024 ambulatory [facility] Start: 05-28-2024 End: 05-28-2024 ambulatory [facility] Start: 05-28-2024 Encounter for genera l adult medical examination without abnormal findings [facility] Start: 05-28-2024 End: 05-28-2024 ambulatory [facility] Start: 05-28-2024 Encounter for genera l adult medical examination without abnormal findings [facility] Start: 05-24-2024 End: 05-24-2024 ambulatory Kiarra Min Facility:[facility] Start: 05-24-2024 End: 05-24-2024 Lab Drop off Kiarra Min [facility] Start: 05-24-2024 End: 05-24-2024 ambulatory Kiarra J Galea Facility:[facility] [facility] Start: 05-24-2024 End: 05-24-2024 Patient encounter procedure Kiarra J Galea [facility] Start: 04-29-2024 End: 04-29-2024 Refill [facility] Work Phone: [facility] Comment on above: Urinary urgency Start: 04-03-2024 End: 04-03-2024 Office outpatient visit 25 minutes Shahbaz Mancini DO Work Phone: [facility] Comment on above: Lumbar disc prolapse with compression radiculopathy (Primary Dx); Class 2 severe obesity due to excess calories with serious comorbidity and body mass index (BMI) of 36.0 to 36.9 in adult ([facility]); Essential hypertension; Other fatigue Start: 04-03-2024 End: 04-03-2024 ambulatory [facility] Start: 03-01-2024 End: 03-01-2024 ambulatory Kiarra J Galea Facility:[facility] Start: 03-01-2024 End: 03-01-2024 Patient encounter procedure Kiarra J Galea [facility] Start: 02-23-2024 End: 02-23-2024 ambulatory Kiarra J Galea Facility:[facility] Start: 02-23-2024 End: 02-23-2024 Lab Drop off Kiarra J Galea [facility] Start: 02-23-2024 End: 02-23-2024 ambulatory Kiarra J Galea Facility:[facility] Start: 02-23-2024 End: 02-23-2024 Patient encounter procedure Kiarra Min [facility] Start: 02-16-2024 End: 02-17-2024 Refill Kaila Beck [facility] Comment on above: Lumbar disc prolapse with compression radiculopathy Start: 02-09-2024 End: 02-09-2024 Refill Shahbaz Mancini DO Work Phone: [facility] Comment on above: Spondylolisthesis, l umbar region Start: 01-25-2024 ambulatory Kiarra Min Facility:[facility] Start: 01-20-2024 End: 01-20-2024 Orders Only Jorge Gibbs RECOVERY UNIT OPERATOR-CLAIMS ASSOCIATE Work Phone: [facility] Comment on above: Right ureteral stone (Primary Dx) Start: 01-19-2024 End: 01-19-2024 Office outpatient visit 15 minutes Jorge Jasen Gibbs RECOVERY UNIT OPERATOR-CLAIMS ASSOCIATE Work Phone: [facility] Comment on above: Right ureteral stone (Primary Dx); Fatty liver Start: 01-19-2024 End: 01-19-2024 ambulatory [facility] Start: 01-02-2024 End: 01-02-2024 Office outpatient visit 25 minutes Shahbaz Mancini DO Work Phone: [facility] Comment on above: Lumbar disc prolapse with compression radiculopathy (Primary Dx); Class 2 severe obesity due to excess calories with serious comorbidity and body mass index (BMI) of 39.0 to 39.9 in adult (CMS-HCC); Lipoma, unspecified site Start: 01-02-2024 End: 01-02-2024 [facility] Start: 11-08-2023 End: 11-10-2023 [facility]phone [facility] Comment on above: Med Refill Start: 10-30-2023 End: 10-30-2023 Refill Shahbaz Alfonsong DO Work Phone: [facility] Comment on above: Essential (primary) hypertension; Urinary urgency Start: 10-10-2023 End: 10-10-2023 Office outpatient visit 15 minutes Josie Grande RECOVERY UNIT OPERATOR-PRACTICE SPECIALIST Work Phone: [facility] Comment on above: Morbid obesity ([facility]) (Primary Dx); Abdominal bloating Start: 10-10-2023 End: 10-10-2023 ambulatory [facility] Start: 09-12-2023 Orders Only Shahbaz Alfonso ng DO Work Phone: [facility] Start: 08-31-2023 Orders Only Josie Grande RECOVERY UNIT OPERATOR-PRACTICE SPECIALIST Work Phone: [facility] Comment on above: Hypomagnesemia (Prim yudy Dx) Start: 08-30-2023 End: 08-30-2023 ambulatory [facility] Start: 08-30-2023 End: 08-30-2023 Office outpatient visit 25 minutes Josie Grande RECOVERY UNIT OPERATOR-PRACTICE SPECIALIST Work Phone: [facility] Comment on above: Acute kidney injury (nontraumatic) ([facility]) (Primary Dx); Hypomagnesemia; Essential hypertension; Morbid obesity ([facility]) Start: 08-13-2023 Refill Shahbaz Alfonso ng DO Work Phone: [facility] Comment on above: Essential (primary) hypertension Start: 08-12-2023 Refill Shahbazevi Arthurlo ng DO Work Phone: [facility] Comment on above: Urinary urgency Start: 08-04-2023 End: 08-04-2023 Office outpatient visit 25 minutes Shahbaz Arthurlong DO Work Phone: [facility] Comment on above: Morbid obesity (CMS- HCC) (Primary Dx); Lumbar disc prolapse with compression radiculopathy; Left lateral epicondylitis; Essential hypertension; Spondylolisthesis, lumbar region; Pre-diabetes Start: 07-28-2023 Refill Shahbaz quintero DO Work Phone: [facility] Comment on above: Urinary urgency Start: 07-08-2023 Refill Kaila Beck [facility] Internal Medicine - Family Medicine Comment on above: Essential (primary) hypertension Start: 07-04-2023 Telephone encounter Shahbaz menjivar DO Work Phone: [facility] Start: 06-21-2023 End: 06-21-2023 Office outpatient visit 15 minutes Josie Grande RECOVERY UNIT OPERATOR-[facility] Work Phone: [facility] Comment on above: Lateral epicondyliti s of left elbow (Primary Dx) Start: 12-03-2021 End: 12-04-[address] SHAHBAZ MANCINI Facility:[facility] Start: 06-16-2021 End: 06-16-2021 ambulatory Kendy Patino Other [employer] Other Start: 06-16-2021 Office outpatient vi sit 15 minutes Kendy Patino [facility] [place] Start: 05-21-2021 Encounter for preprocedural cardiovascular examination DR DOCTOR NGUYEN [facility] Start: 05-21-2021 Encounter for preprocedural laboratory examination DR DOCTOR NGUYEN [facility] Start: 05-15-2021 End: 05-16-[address] DOCTOR NGUYEN Facility:[facility] Start: 05-15-2021 End: 05-16-2021 Encounter for preprocedural laboratory examination DR DOCTOR NGUYEN Facility:[facility] Start: 02-19-2021 End: 02-19-[address] SHAHBAZ MANCINI Facility:[facility] Start: 11-23-2017 Ambulatory Christina Apodaca Fac ility:[facility] Start: 11-09-2017 Ambulatory Christina Apodaca Fac ility:[id number] Procedures Date Procedure Procedure Detail Performing Clinician Start: 09-13-2024 Adult depression scr eening assessment Shahbaz Furlong DO Work Phone: Start: 05-28-2024 Adult depression scr eening assessment Kaila Beck CMA Start: 04-03-2024 Adult depression scr eening assessment Shahbaz Furlong DO Work Phone: Start: 01-02-2024 Adult depression scr eening assessment Shahbaz Furlong DO Work Phone: Start: 10-10-2023 Follow-up visit Follow-up JOSIE GRANDE Start: 10-10-2023 Adult depression scr eening assessment Josie Grande RECOVERY UNIT OPERATOR-PRACTICE SPECIALIST Work Phone: Start: 08-30-2023 Adult depression scr eening assessment Josie Grande RECOVERY UNIT OPERATOR-PRACTICE SPECIALIST Work Phone: Start: 08-04-2023 Adult depression scr eening assessment Shahbaz Furlong DO Work Phone: Start: 06-21-2023 Adult depression scr eening assessment Josie Grande RECOVERY UNIT OPERATOR-PRACTICE SPECIALIST Work Phone: Start: 11-25-2014 Total replacement of left hip joint Kiarra Min Plan of Treatment Date Care Activity Detail Author Start: 02-11-2030 DTaP,Tdap and Td Vac cines (3 - Td or Tdap) DTaP,Tdap and Td Vaccines (3 - Td or Tdap) [facility] Start: 09-13-2025 Adult BMI Screening Adult BMI Screen ing [facility] Start: 09-13-2025 Depression Screening Depression Scre ening [facility] Start: 09-13-2025 Tobacco Screening Tobacco Screening [facility] Start: 07-27-2025 Adult BMI Screening Adult BMI Screen ing [facility] Start: 07-27-2025 Tobacco Screening Tobacco Screening [facility] Start: 05-28-2025 Adult BMI Screening Adult BMI Screen ing [facility] Start: 05-28-2025 Depression Screening Depression Scre ening [facility] Start: 05-28-2025 Tobacco Screening Tobacco Screening [facility] Start: 04-03-2025 Adult BMI Screening Adult BMI Screen ing [facility] Start: 04-03-2025 Depression Screening Depression Scre ening [facility] Start: 04-03-2025 Tobacco Screening Tobacco Screening [facility] Start: 02-11-2025 Influenza vaccination Influenza Vacc ine [facility] Start: 01-18-2025 Adult BMI Screening Adult BMI Screen ing [facility] Start: 01-18-2025 Tobacco Screening Tobacco Screening [facility] Start: 01-14-2025 End: 01-14-2025 Patient encounter procedure 01/14/2025 4:30 PM EDT Office Visit [facility] [address] [place] [address] Shahbaz Mancini, [address], [place] [address] [facility] Start: 01-01-2025 Adult BMI Screening Adult BMI Screen ing [facility] Start: 01-01-2025 Depression Screening Depression Scre ening [facility] Start: 01-01-2025 Tobacco Screening Tobacco Screening [facility] Start: 10-09-2024 Adult BMI Screening Adult BMI Screen ing [facility] Start: 10-09-2024 Depression Screening Depression Scre ening [facility] Start: 10-09-2024 Tobacco Screening Tobacco Screening [facility] Start: 09-13-2024 End: 09-13-2024 Patient encounter procedure 09/13/2024 4:15 PM EDT Office Visit [facility] [address] [place] [address] Shahbaz Mancini DO [address], [place] [address] [facility] Start: 08-29-2024 Adult BMI Screening Adult BMI Screen ing [facility] Start: 08-29-2024 Depression Screening Depression Scre ening [facility] Start: 08-29-2024 Tobacco Screening Tobacco Screening [facility] Start: 08-28-2024 End: 08-28-2024 Patient encounter procedure 08/28/2024 3:30 PM EDT Office Visit [facility] [address] [place] [address] Shahbaz Mancini DO [address], [place] [address] [facility] Start: 08-28-2024 Screening for malign ant neoplasm of colon Colon Cancer Screening 3 Year Cologuard [facility] Start: 08-04-2024 Adult BMI Screening Adult BMI Screen ing [facility] Start: 08-04-2024 Depression Screening Depression Scre ening [facility] Start: 08-04-2024 Tobacco Screening Tobacco Screening [facility] Start: 06-21-2024 Adult BMI Screening Adult BMI Screen ing [facility] Start: 06-21-2024 Depression Screening Depression Scre ening [facility] Start: 06-21-2024 Tobacco Screening Tobacco Screening [facility] Start: 05-28-2024 End: 05-28-2024 Patient encounter procedure 05/28/2024 2:30 PM EST [facility] [address] [place] [address] Shahbaz Mancini DO [address], [place] [address] [facility] Start: 04-03-2024 End: 04-03-2024 Patient encounter procedure 04/03/2024 4:30 PM EDT Office Visit [facility] [address] [place] [address] Shahbaz Mancini, DO [address], [place] [address] [facility] Start: 02-12-2024 Influenza vaccination Influenza Vacc ine [facility] Start: 01-02-2024 End: 01-02-2024 Patient encounter procedure 01/02/2024 4:15 PM EDT Office Visit [facility] [address] [place] [address] Shahbaz Mancini, DO [address], [place] [address] [facility] Start: 11-03-2023 End: 11-03-2023 Patient encounter procedure 11/03/2023 4:10 PM EDT [facility] [address] [place] [address] Shahbaz Mancini, DO [address], [place] [address] [facility] Start: 10-10-2023 End: 10-10-2023 Patient encounter procedure 10/10/2023 4:00 PM EDT Office Visit [facility] [address] [place] [address] Josie Grande, RECOVERY UNIT OPERATOR-PRACTICE SPECIALIST [address] [place] [address] [facility] Start: 09-11-2023 Influenza vaccination Influenza Vacc ine [facility] Comment on above: Postponed from 02/11 (Patient Refused) Start: 08-04-2023 End: 08-04-2023 Patient encounter procedure 08/04/2023 2:20 PM EST [facility] [address] [place] [address] Shahbaz Mancini DO [address], [place] [address] [facility] Start: 2023 Administration of varicella zoster vaccine Zoster (Shingles) Vaccine (1 of 2) [facility] Start: 02-11-2023 Influenza vaccination Influenza Vacc ine [facility] Start: 1991 Adult BMI Follow Up Plan Adult BMI Follow Up Plan [facility] Immunizations Immunization Date Immunization Notes Care Provider Fa cility 02-12-2020 diphtheria, tetanus toxoids and pertussis vaccine Josie Grande RECOVERY UNIT OPERATOR-PRACTICE SPECIALIST Work Phone: [facility] 02-12-2020 tetanus toxoid, redu jackson diphtheria toxoid, and acellular pertussis vaccine, adsorbed Josie Grande RECOVERY UNIT OPERATOR-PRACTICE SPECIALIST Work Phone: [facility] 02-03-2018 hepatitis B vaccine, adult dosage Josie Grande RECOVERY UNIT OPERATOR-PRACTICE SPECIALIST Work Phone: [facility] 09-07-2017 hepatitis B vaccine, adult dosage Josie Grande RECOVERY UNIT 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 2023 Managed Care Other (unspecified) [id number] PLAN [id number] 2023 Private Health Insurance [id number] 2023 Private Health Insurance [id number] 2023 Unknown [id number] 2012 Unknown [id number]. [id number] 1973 Unknown [id number] 2.16.840.1.821564.3.579. 2.593 1973 Unknown [id number] 2.16.840.1.039385.3.579. 2.593 1973 Unknown [id number] 2.16.840.1.058041.3.579. 2.593 1973 Unknown [id number] 2.16.840.1.476241.3.579. 2.727 1973 Unknown [id number] 2.16.840.1.827519.3.579. 2.727 1973 Unknown [id number] 2.16.840.1.486096.3.579. 2.727 1973 Unknown [id number] 2.16.840.1.557683.3.579. 2.1286 1973 Unknown [id number] 2.16.840.1.983533.3.579. 2.1286 1973 Unknown [id number] 2.16.840.1.324027.3.579. 2.1286 1973 Unknown [id number] 2.16.840.1.650017.3.579. 2.727 1973 Unknown [id number] 2.16.840.1.137821.3.579. 2.727 1973 Unknown [id number] 2.16.840.1.852124.3.579. 2.727 1973 Unknown [id number] 2.16.840.1.357443.3.579. 2.1286 1973 Unknown [id number] 2.16.840.1.363332.3.579. 2.1286 1973 Unknown [id number] 2.16.840.1.995990.3.579. 2.1286 1973 Unknown [id number] 2.16.840.1.906702.3.579. 2.1286 1973 Unknown [id number] 2.16.840.1.858429.3.579. 2.1286 1973 Unknown [id number] 2.16.840.1.887412.3.579. 2.1286 1973 Unknown [id number] 2.16.840.1.550161.3.579. 2.1286 1973 Unknown [id number] 2.16.840.1.674954.3.579. 2.196 1973 Unknown [id number] 2.16.840.1.519080.3.579. 2.196 1973 Unknown [id number] 2.16.840.1.275984.3.579. 2.727 1973 Unknown [id number] 2.16.840.1.606031.3.579. 2.727 1973 Unknown [id number] 2.16.840.1.347012.3.579. 2.727 1959 Unknown [id number] Self-pay Social History Date Type Detail Facility Start: 03-07-2023 End: 05-03-2023 Sex Assigned At [facility] Start: 03-01-2024 End: 05-24-2024 Tobacco smoking status Light tobacco smoker (finding) [facility] Start: 03-07-2023 End: 01-19-2024 Tobacco smoking status Ex-smoker (finding) [facility] Tobacco smoking status Never [facility] Start: 06-13-1989 End: 09-11-2022 History of tobacco use Current smoker [facility] Start: 06-13-1989 End: 09-11-2022 History of tobacco use Cigarette Smoker [facility] Start: 03-07-2023 End: 01-19-2024 Cigarettes smoked current (pack per day) - Reported 0.5 [facility] Start: 03-07-2023 End: 01-19-2024 Tobacco use and exposure Smokeless tobacco non-user [facility] Start: 05-28-2024 End: 09-13-2024 Alcoholic beverage intake Ex-drinker (finding) [facility] Has the [employer] threatened to shut off services in your home in past 12Mo No [facility] Are you now , , , , never or living with a partner? [facility] How often to you hav e a drink containing alcohol? 2-4 times a month [facility] How many standard drinks containing alcohol do you have on a typical day? 1 or [address] [facility] How often do you hav e 6 or more drinks on 1 occasion? Never [facility] Do you feel stress - tense, restless, nervous, or anxious, or unable to sleep at night because your mind is troubled all the time - these days [OSQ] Not at all [facility] Start: 03-02-2022 Alcohol Comment Occasional 6 p ack once a month [facility] Start: 1975 Sex assigned at Not on file [employer] Start: 01-16-2015 Sex Male (finding) [facility] Start: 06-21-2023 End: 08-04-2023 Alcohol intake Current drinker of alcohol (finding) [facility] Functional Status Date Assessment Result Facility 05-24-2024 Functional Status N/A [facility] 03-01-2024 Functional Status N/A [facility] 02-23-2024 Functional Status N/A [facility] Clinical Notes 02-19-2021 to 10-04-2024 Shahbaz Mancini, DO - 09/13/2024 4:15 PM EDTShahbaz Mancini, DO - 07/27/2024 11:15 AM ESTTelephone Encounter - Kaila Kongllett, CREAM TESTER - 06/26/2024 4:14 PM EST Note Date & Type Note Facility 10-04-2024 Note Patient Education Urology Benign Prostatic Hyperplasia [...] or symptoms? Symptoms of this condition include: ??? Getting up often during the night to urinate. ??? Needing to urinate frequently during the day. ??? Difficulty starting urine flow. ??? Decrease in size and strength of your urine stream. ??? Leaking (dribbling) after urinating. ??? Inability to pass urine. This needs immediate treatment. ??? Inability to completely empty your bladder. ??? Pain when you pass urine. This is more common if there is also an infection. ??? Urinary tract infection (UTI). How is this diagnosed? This condition is diagnosed based on your medical history, a physical exam, and your symptoms. Tests will also be done, such as: ??? A post-void bladder scan. This measures any amount of urine that may remain in your bladder after you finish urinating. ??? A digital rectal exam. In a rectal exam, your health care provider checks your prostate by putting a lubricated, gloved finger into your rectum to feel the back of your prostate gland. This exam detects the size of your gland and any abnormal lumps or growths. ??? An exam of your urine (urinalysis). ??? A prostate specific antigen (PSA) screening. This is a blood test used to screen for prostate cancer. ??? An ultrasound. This test uses sound waves [...] severity of your condition. Treatment may include: ??? Observation and yearly exams. This may be the only treatment needed if your condition and symptoms are mild. ??? Medicines to relieve your symptoms, including: ? Medicines to shrink the prostate. ? Medicines to relax the muscle of the prostate. ??? Surgery in severe cases. Surgery may include: [...] the urethra. Follow these instructions at home: ??? Take [id number] and prescription medicines only as told by your health care provider. ??? Monitor your symptoms for any changes. Contact your health care provider with any changes. ??? Avoid drinking large amounts of liquid before going to bed or out in public. ??? Avoid or reduce how much caffeine or alcohol you drink. ??? Give yourself time when you urinate. ??? Keep all follow-up visits. This is important. Contact a health care provider if: ??? You have unexplained back pain. ??? Your symptoms do not get (more content not included)... [facility] 09-13-2024 History of Present illness Narrative Subjective Patient ID: Jorgito Jovel is a 49 y.o. male. Lizandro presents today to recheck his weight and back. He is taking semaglutide compounded injections. He has tolerating it well. Continues a slow weight loss. Overall he is down about 20 lb from when he started last year. He is not able to do much exercise because of his chronic back pain. He saw pain management in his going to be having injections done. He rarely uses oxycodone. He still has some left from his prescription several months ago. He only uses it when his pain is severe. They also made some medication changes. They stopped his tizanidine and placed him on baclofen. They also stopped Celebrex and put him on meloxicam. He takes 7.5 mg of meloxicam twice a day. Those were recent changes in he has not even tried the baclofen yet. He has no new other problems. His blood pressure has been elevated but today it is low. He is asymptomatic. He is taking his medications. Follow-up The following portions of the patient's history were reviewed and updated as appropriate: allergies, current medications, past family history, past medical history, past social history, past surgical history, problem list, and medication reconciliation was completed including current medication and post discharge medication. Review of Systems Objective Physical Exam Vitals reviewed. Exam conducted with a pier master assistant present (Darryl Ruiz MS 3). Constitutional: General: He is not in acute distress. Appearance: He is obese. He is not ill-appearing. Cardiovascular: Rate and Rhythm: Normal rate and [...] normal. Assessment/Plan Jorgito was seen today for follow-up and weight check. Diagnoses and all orders for this visit: Lumbar disc prolapse with compression radiculopathy Follow up with pain management. Continue the medications that they gave. He does use oxycodone rarely with benefit. It is a high risk medication. There are no signs of abuse. The OARRS/MAPPS database was reviewed today and found to be appropriate. No indication of medication diversion, or non compliance. Class 2 severe obesity due to excess calories with serious comorbidity and body mass index (BMI) of 36.0 to 36.9 in adult ([facility]) He is obese. He continues with a gradual weight loss. Really is unable to exercise so the weight loss he has achieved is significant because he is doing it through a reduced calorie intake. He is using the medication with benefit. He is not having any side effects. Continue for now. Essential hypertension Blood pressure is low today. He is asymptomatic. We will continue current regimen. It had been elevated slightly in the past. Gastroesophageal reflux disease, unspecified whether esophagitis present He is using omeprazole daily. He should consider cutting back to every other day. If unable to we should consider an EGD. [facility] History of Present illness Narrative Images [...] Exam Vitals reviewed. Exam conducted with a pier master assistant present (Dat Nirmalearnest MS3). Constitutional: General: He is not in [...] the office today. documented in this encounter [employer] 06-26-2024 Miscellaneous Notes Patient came in and was wondering if he can get a refill on the wegovy through [facility] and he would like it increased if he can. Okay. Forms filled out to be faxed in documented in this encounter [facility] 06-26-2024 Telephone encounter Note Patient came in and was wondering if he can get a refill on the wegovy through [facility] and he would like it increased if he can. [facility] 06-26-2024 Telephone encounter Note Okay. Forms filled out to be faxed in [facility] 05-24-2024 Hospital Discharge instructions Patient Education 05/24/2024 [...] treatment? Where to find more information The [place] [employer]: www.cancer.org [place] [employer]: www.auanet.org Contact a health care [...] provider. Document Revised: 11/23/2021 Document Reviewed: 11/23/2021 [employer] Patient Education 2023 [employer] 05/24/2024 10:52:52 Prostate Cancer Screening Prostate Cancer [...] treatment? Where to find more information The [place] [employer]: www.cancer.org [place] [employer]: www.auanet.org Contact a health care [...] provider. Document Revised: 11/23/2021 Document Reviewed: 11/23/2021 [employer] Patient Education 2023 [employer]. 05/24/2024 10:52:36 Benign Prostatic Hyperplasia Benign Prostatic [...] urethra. Follow these instructions at home: Take alid-owg-iuubefb and prescription medicines only as told by [...] provider. Document Revised: 12/16/2021 Document Reviewed: 12/16/2021 [employer] Patient Education 2023 [employer]. [facility] Up Care 02/23/2024 10:39:28 With:Mechelle BARCENAS, Kiarra Gant, URL Address: When: Unknown Comments:F/U 3 months [facility] 05-24-2024 Note Patient Education Prostate Cancer Screening [...] Where to find more information ??? The [place] [employer]: www.cancer.org ??? [place] [employer] Association: www.auanet.org Contact a health care [...] gland is located (more content not included)... [facility] 04-03-2024 History of Present illness Narrative Subjective [...] a sleep study done years ago at [facility] but it was okay. Part of [...] (BMI) of 36.0 to 36.9 in adult ([facility]) He is obese. He is using semaglutide with benefit. He is gradually losing weight. He was congratulated on his weight loss and encouraged to continue. Essential hypertension Blood pressure at goal. Weight loss is benefitting his blood pressure. Other fatigue Will try to track down the sleep study done at [facility] to see if he has sleep [...] for muscle spasms. documented in this encounter [facility] [employer] 03-01-2024 Hospital Discharge instructions Patient Education 03/01/2024 [...] Follow these instructions at home: Medicines Take eojb-ivb-ruuvxcv and prescription medicines only as told by [...] or the blood stops without treatment. Take jsge-aqk-dmeixqj and prescription medicines only as told by your health care provider. Drink enough fluid to keep your urine pale yellow. This information is not intended to replace advice given to you by your health care provider. Make sure you discuss any questions you have with your health care provider. Document Revised: 01/28/2021 Document Reviewed: 01/28/2021 [employer] Patient Education 2023 [employer]. Follow Up Care 02/27/2024 10:53:51 With:Kiarra Christiansen, URL Address: When: Unknown Comments:Appointment has already been scheduled [facility] 03-01-2024 Note Patient Education Urology Hematuria, Adult [...] these instructions at home: Medicines ? Take acis-hit-gybyrdl and prescription medicines only as told by [...] the blood stops without treatment. ? Take lwex-hcy-mwrwxtc and prescription medicines only as told by your health care provider. ? Drink enough fluid to keep your urine pale yellow. This information is not intended to replace advice given to you by your health care provider. Make sure you discuss any questions you have with your health care provider. Document Revised: 01/28/2021 Document Reviewed: 01/28/2021 [employer] Patient Education ? 2023 [employer]. [facility] 02-23-2024 Hospital Discharge instructions Patient Education 02/23/2024 [...] urethra. Follow these instructions at home: Take iaku-goo-ikmilbl and prescription medicines only as told by [...] provider. Document Revised: 12/16/2021 Document Reviewed: 12/16/2021 [employer] Patient Education 2023 [employer]. 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 was taking flomax, [...] Skin: No rashes or suspicious lesions Assessment/Plan PATIENT SAFETY OFFICER referred by Jorge Gibbs NP for ureteral stone. 01/08/24 - BUN 27, Cre 1.95, GFR 44 (pt had hydro due to ureteral stone at this time), no repeat labs in [facility] 1. History of kidney stones (Z87.442: Personal history of urinary calculi) 01/08/[address] [facility] [address] w/o con - mild R hydronephrosis due to a 5mm proximal R ureteral stone near the UPJ. No additional upper or lower urinary tract calculi are seen on either side. There are no other acute findings in the abdomen or pelvis 02/16/24 K[facility] - no appreciable urinary tract calculi Pt went to [facility] ER on 01/08/24 due to pain. [...] Mt. Dew. Discussed increasing fluids and adding lemon/yavapai-apache to patient's regimen, pt verbalizes understanding. Briefly discussed metabolic workup with patient should he develop another stone. -Increase fluids, avoid bladder irritants -Add lemon/yavapai-apache, lemonade to fluid intake -Call our office for any stone symptoms -F/U 1 year with KUB/KECIA Ordered: E&M of New Patient High 60-74 Min 28887 2. BPH with obstruction/lower urinary tract symptoms [...] Daily, # 30 cap(s), Refills(s) 11, Pharmacy: Cover #72, 168, cm, 02/23/24 10:12:00 EDT, Height/Length Dosing, 102, kg, 02/23/24 10:12:00 EDT, Weight Dosing E&M of New Patient High 60-74 Min 72807 3. Screening PSA (prostate specific antigen) (Z12.5: [...] E&M of New Patient High 60-74 Min 07494 PSA Total 4. Asymptomatic microscopic hematuria (R31.21: Asymptomatic microscopic hematuria) 01/08/[address] [facility] ER CT w/o con - mild [...] Denies gross hematuria. (more content not included)... [facility] Comment on above: Result Comment: Elec tronically Signed By: Kiarra Christiansen\.br\Date and Time Signed: 02/23/24 11:07 EDT 02-23-2024 [...] Follow these instructions at home: ? Take bddc-fug-nymprvf and prescription medicines only as told by [...] develop side effec (more content not included)... [facility] 01-19-2024 History of Present illness Narrative [address] [place] [address] Patient: Jorgito Jovel Date of : 1975 [...] He has gotten a surgery consultation through [facility] in the past and decided not to [...] this visit: Right ureteral stone - Cancel: [facility] [place], [place]; Future Fatty liver Follow-up: Patient was set up with [facility] but unfortunately they did not [...] for routine visit. ZOEY THOMAS APRN-CNP 01/23/24 5172 documented in this encounter [facility] 01-02-2024 History of Present illness Narrative [...] Cervical back: Neck supple. Skin: Findings: Lesion ([place], soft, freely movable mass along left anterior [...] see a surgeon. documented in this encounter [employer] 11-08-2023 Miscellaneous Notes Pt called stated he neds a refill of his wagovy . Not sure what dose he needs , some other screen comes up when I tried to send you a reorder Form printed out to faxed to [facility] documented in this encounter [facility] 11-08-2023 Telephone encounter Note Pt called stated he neds a refill of his wagovy . Not sure what dose he needs , some other screen comes up when I tried to send you a reorder [facility] 11-08-2023 Telephone encounter Note Form printed out to faxed to [facility] 10-10-2023 History of Present illness [...] if symptoms fail to improve EDI Berg 10/10/23 1839 [facility] 09-12-2023 History of Present illness Narrative Semaglutide 0.6 mg once a week sent in to [facility] documented [facility] 08-30-2023 History of Present illness Narrative Subjective [...] for this visit: Acute kidney injury (nontraumatic) ([facility]) - Comprehensive metabolic panel; Future Hypomagnesemia - Magnesium; Future Essential hypertension Morbid obesity ([facility]) He looks good today and [...] 1710 documented in this encounter [facility] 08-13-2023 Miscellaneous Notes I called pt and he is taking it.He has a 90 supply everything good he is receiving it through [facility] 08-13-2023 Telephone encounter Note I called pt and he is taking it.He has a 90 supply everything good he is receiving it through [facility] 08-04-2023 History of Present illness Narrative Subjective [...] like a refill. 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 I have gotten multiple request to refill this medication. Call patient and find out what is going on It will be covered if it goes to this pharmacy That pharmacy does not accept e-prescriptions per [facility]. I printed out a prescription to hand fax [facility]-08[facility]2023 Telephone encounter Note Patient told me that this was no longer going to be covered so I sent in an alternative. I have gotten multiple request to refill this medication. Call patient and find out what is going on [facility] Telephone encounter Note It will be covered if it goes to this [facility] 07-08-2023 Telephone encounter Note That pharmacy does not accept e-prescriptions per [employer]. I printed out a prescription to hand fax [facility]-04-2023 Miscellaneous Notes [facility] called requesting an Edarbi med refill however I dont see it as a listed med. Please advise. It was not going to be covered so I changed it to something else per patient's request. documented [facility] 07-04-2023 Telephone encounter Note [facility] rep called requesting an Edarbi med refill however I dont see it as a listed med. Please advise. [facility] 07-04-2023 Telephone encounter Note It was not going to be covered so I changed it to something else per patient's request. [employer] 06-21-2023 History of Present illness Narrative Subjective [...] EDI Amaya 06/21/231723 documented in this encounter [facility] 12-04-2021 Note PROCEDURE: XR HEEL [...] authenticated by: SALINA AGUILERA Date: 2021-12-04 09:07 [facility] 06-16-2021 Evaluation note Encounter Date [...] Patient care instructions given in writting by [facility] Care At Home document. [employer] Other 09-09-2021 NotePROCEDURE: XR KNEE RT 4V [...] Electronically authenticated by: SALINA AGUILERA Date: 2021-02-19 14:03[facility] Future Appointments Appointment Date:05/24/2024 09:00:00 AM Scheduled Provider:Kiarra Christiansen Location:[facility] Appointment Type:URO Office Visit Diagnostic Tests Pending * Creatinine 03/01/24 [facility] evaluation + Plan note Future Appointments Appointment Date:05/24/2024 09:00:00 AM Scheduled Provider:Kiarra Christiansen Location:[facility] Appointment Type:URO Office Visit Diagnostic Tests Pending * Urine Culture 02/23/24 [facility] Evaluation + Plan note Future Appointments Appointment Date:05/24/2024 09:00:00 AM Scheduled Provider:Kiarra Christiansen Location:[facility] Appointment Type:URO Office Visit Diagnostic Tests Pending * PSA Total 02/23/24 [facility] evaluation note* Diagnosis Morbid obesity (CMS-HCC)- Primary Morbid obesity Abdominal bloating Flatulence, eructation, and gas pain documented [facility] this [facility] Diagnosis Lateral epicondylitis of left elbow- Primary documented [facility] this [facility]* Diagnosis Lumbar disc prolapse with compression radiculopathy- Primary Displacement of lumbar intervertebral disc without myelopathy [facility] Diagnosis Essential (primary) hypertension Unspecified essential hypertension Urinary urgency Urgency of urination documented in this encounter [facility]* Diagnosis Essential (primary) hypertension Unspecified essential hypertension [facility] Diagnosis Urinary urgency Urgency of urination [facility]* Diagnosis Morbid obesity ([facility])- Primary Morbid obesity Lumbar disc prolapse with compression radiculopathy Displacement of lumbar intervertebral disc without myelopathy Left lateral epicondylitis Essential hypertension Unspecified essential hypertension Spondylolisthesis, lumbar region Pre-diabetes Other abnormal glucose documented in this encounter [facility]* Diagnosis Urinary urgency Urgency of urination [facility] Diagnosis Essential (primary) hypertension Unspecified essential hypertension documented in this encounter [facility]* Diagnosis Lumbar disc prolapse with compression radiculopathy- Primary Displacement of lumbar intervertebral disc without myelopathy Class 2 severe obesity due to excess calories with serious comorbidity and body mass index (BMI) of 39.0 to 39.9 in adult ([facility]) Lipoma, unspecified site documented in this encounter [facility]* Diagnosis Acute kidney injury (nontraumatic) ([facility])- Primary Acute kidney failure, unspecified Hypomagnesemia Disorders of magnesium metabolism Essential hypertension Unspecified essential hypertension Morbid obesity ([facility]) Morbid obesity documented in this encounter [facility]* Diagnosis Hypomagnesemia- Primary Disorders of magnesium metabolism documented in this encounter [facility]* Diagnosis Right ureteral stone- Primary documented in this encounter [facility]* Diagnosis Right ureteral stone- Primary Fatty liver Other chronic nonalcoholic liver disease documented in this encounter [facility]* Diagnosis Spondylolisthesis, lumbar region documented in this encounter [facility]* Diagnosis Lumbar disc prolapse with compression radiculopathy Displacement of lumbar intervertebral disc without myelopathy documented in this encounter [facility]* Diagnosis Lumbar disc prolapse with compression radiculopathy- Primary Displacement of lumbar intervertebral disc without myelopathy Class 2 severe obesity due to excess calories with serious comorbidity and body mass index (BMI) of 36.0 to 36.9 in adult ([facility]) Essential hypertension Unspecified essential hypertension Other fatigue documented in this encounter [facility]* Diagnosis Urinary urgency Urgency of urination [facility] Diagnosis Spondylolisthesis, lumbar region documented in this encounter [facility] [...] (BMI) of 36.0 to 36.9 in adult ([facility]) Essential hypertension Unspecified essential hypertension Gastroesophageal reflux disease, unspecified whether esophagitis present documented in this encounter [facility] Narrative - Reported* Type Description Date Medical History GERD Medical History arthritis Medical History NIDDM Medical History HTN Medical History hyperlipidemia Medical History sleep apnea Medical History depression Medical History deviated nasal septum Medical History chronic sinusitis Medical History COPD Surgical History Injection Tendon Origin/Inserti on Surgical History LASIK Surgical History total hip replacement, left Hospitalization History surgeries [employer] Other Hospital course Narrative No data available for this section [facility] Hospital Discharge instructions No data available for this section [facility] InstructionsNot on filedocumented in this encounter [facility] [...] on filedocumented in this encounter [facility]* Attachments The following attachments cannot be sent through Care Everywhere. * Kidney stones in adults (Amharic) documented in this [facility] SystemInstructionsNot on file documented in this encounterProMedica Health SystemInstructionsNot on file documented in this encounterProMedica Health SystemInstructionsNot on file documented in this encounterPro[facility] SystemInstructionsNot on file documented in this encounterProSelect [facility] SystemProgress note No data available for this section [facility] referral (narrative)* Consultation (Routine) - Pending Review Specialty Diagnoses / Procedures Referred By Cassandra hdez Referred To Contact Urology Diagnoses Right ureteral stone Jorge Gibbs APRN-CNP [address] [place] [address] Juancho Nunn MD [address] [place] [address] Referral ID Status Reason Start Date Expiration Date Visits Requested Visits Authorized [id number] Pending Review Specialty Services Required 01/20/2024 01/19/2025 [address] [facility] Summary Purpose Family History No Family [...] DATE CREATED AUTHOR AUTHOR'S ORGANIZ ATION 12/02/2017 [facility] DATE CREATED AUTHOR AUTHOR'S ORGANIZ ATION 06/02/2021 [facility] DATE CREATED AUTHOR AUTHOR'S ORGANIZ ATION 12/09/2021 [facility] DATE CREATED AUTHOR AUTHOR'S ORGANIZ ATION 02/26/2024 Sidhu Lee [facility] DATE CREATED AUTHOR AUTHOR'S ORGANIZ ATION 02/27/2024 Sidhu Ernie [facility] Center DATE CREATED AUTHOR AUTHOR'S ORGANIZ ATION 05/27/2024 Sidhu Ernie [facility] Center DATE CREATED AUTHOR AUTHOR'S ORGANIZ ATION 06/04/2024 [facility] DATE CREATED AUTHOR AUTHOR'S ORGANIZ ATION 08/10/2024 Sidhu Lee [facility] ical Center DATE CREATED AUTHOR AUTHOR'S ORGANIZ ATION 09/16/2024 [facility] DATE CREATED AUTHOR AUTHOR'S ORGANIZ ATION 09/23/2024 [facility] DATE CREATED AUTHOR AUTHOR'S ORGANIZ ATION 10/05/2024 Sidhu Lee [facility] ica Center REASON FOR VISIT (unrecogniz ed section and content) Reason Comments Follow-up Reason Comments elbow, arm wrist pain w/ lump on wrist Reason Comments Back Pain Reason Comments Med Refill Reason Onset Date Comments Med Refill 11/08/2023 Reason Comments Weight Loss Reason Comments Follow-up From ER visit 3 days at H Reason Comments Er Follow-up Still having sorenes s in back Reason Onset Date Comments Med Refill 02/16/2024 Reason Comments controlled Reason Onset Date Comments Med Refill 08/27/2024 Reason Comments Follow-up Pain meds Weight Check Patient Care team informatio n (unrecognized section and content) Bradder Relationship Specialty Start Date End Date Shahbaz Mancini DO [address], [place] [address] PCP - General Family Medicine 02/11/22 Bradder Relationship Specialty Start Date End Date Shahbaz Mancini DO [address] [place] [address] [place] [address] PCP - General Family Medicine 02/11/22 Bradder Relationship Specialty Start Date End Date Shahbaz Mancini DO [address] [place] [address] PCP - General Family Medicine 02/11/22 Bradder Relationship Specialty Start Date End Date SandhyanicolasShahbaz quintero DO [address] [place] [address] PCP - General Family Medicine 02/11/22 Bradder Relationship Specialty Start Date End Date SandhyanicolasShahbaz quintero DO [address] [place] [address] PCP - General Family Medicine 02/11/22 Bradder Relationship Specialty Start Date End Date SandhyanicolasShahbaz quintero DO [address] [place] [address] PCP - General Family Medicine 02/11/22 Bradder Relationship Specialty Start Date End Date SandhyanicolasShahbaz quintero DO [address] [place] [address] PCP - General Family Medicine 02/11/22 Bradder Relationship Specialty Start Date End Date SandhyanicolasShahbaz quintero DO [address] [place] [address] PCP - General Family Medicine 02/11/22 Bradder Relationship Specialty Start Date End Date SandhyanicolasShahbaz quintero DO [address] [place] [address] PCP - General Family Medicine 02/11/22 Bradder Relationship Specialty Start Date End Date Shahbaz Mnacini DO [address] [place] [address] PCP - [facility] 02/11/22 Bradder Relationship Specialty Start Date End Date Shahbaz Mancini DO [address] [place] [address] PCP - [facility] 02/11/22 Bradder Relationship Specialty Start Date End Date Shahbaz Mancini DO [address] [place] [address] PCP - [facility] 02/11/22 FOR RECORDS PERTAINING TO PATIENTS [...] BE BASED ON THE PRIMARY CLINICAL RECORDS. [facility] [employer] [facility]. provides no warranty or guarantee of the accuracy or completeness of information in this document.
--- NOTE | 2024-10-24 09:07 | PM.CN ---
Consult Note: HPI Data of Consult Requesting Physician: Evelyn Landa NP Primary Care Provider: OSMAR MANCINI Consult Narrative Reason for consult: low back pain Narrative: 49yom who presents for evaluation. longstanding low back pain. previously underwent injection therapies. uses pain meds as needed, with limited benefit. has engaged in >6 weeks of provider directed home exercises, without benefit. denies adverse med side effects. recently underwent lumbar MRI which is consistent with multilevel disc bulge and spondylotic changes. pain today 7/10 increasing to 9/10 at times. since last visit pt underwent bilateral SIJ injection with reported relief for 1.5 weeks. cc:: CC: Evelyn Landa NP Review of Systems ROS Status of ROS 10 or more systems reviewed and unremarkable except as noted in history and below Musculoskeletal Reports: back pain and extremity pain PFSH PFSH Medical History GERD (gastroesophageal reflux disease) ?K21.9 - Gastro-esophageal reflux disease without esophagitis (ICD-10) OAB (overactive bladder) ?N32.81 - Overactive bladder (ICD-10) Hyperlipidemia ?E78.5 - Hyperlipidemia, unspecified (ICD-10) Prediabetes ?R73.03 - Prediabetes (ICD-10) HTN (hypertension) ?I10 - Essential (primary) hypertension (ICD-10) Cholelithiasis ?K80.20 - Calculus of gallbladder without cholecystitis without obstruction (ICD-10) Degenerative disc disease, lumbar ?M51.36 - Other intervertebral disc degeneration, lumbar region (ICD-10) Surgical History History of hip replacement ?Z96.649 - Presence of unspecified artificial hip joint (ICD-10) Family History Father Family history of CHF (congestive heart failure) Family history of COPD (chronic obstructive pulmonary disease) Family history of hypertension Family history of stroke Grandfather Family history of cancer Family history of hypertension Grandfather Family history of cancer Brother Family history of diabetes mellitus Family history of hypertension Social History Within the past year, how often did you have a drink containing alcohol: 2-4 times a month Within the past year, how many standard drinks containing alcohol did you have on a typical day: 1 or 2 Within the past year, how often did you have six or more drinks on one occasion: never Total score: 0 Score interpretation: A score less than 4 is consistent with normal alcohol consumption. Smoking status: Current every day smoker Do you use any of these nicotine containing products: vaping products Non-prescribed substance use: denies use Previous occupational history: [employer] Highest level of school completed/degree received: Associate degree: occupational, technical, vocational program Little interest or pleasure in doing things: not at all Feeling down, depressed, or hopeless: not at all Feel stressed/tense/nervous/anxious/difficulty sleeping: not at all Meds Home Medications and Allergies Home Medications ?Medication ?Instructions ?Recorded ?Confirmed ?Type atorvastatin 20 mg tablet 20 mg PO DAILY 08/22/23 10/15/24 History fenofibrate 160 mg tablet 160 mg PO DAILY 08/22/23 10/15/24 History metoprolol succinate 50 mg 50 mg PO DAILY 08/22/23 10/15/24 History tablet,extended release 24 hr Held on 08/24/23. Instructions: Until follow up with PCP to discuss omeprazole 20 mg capsule,delayed 20 mg PO DAILY 08/22/23 10/15/24 History release oxybutynin chloride 5 mg tablet 5 mg PO DAILY 08/22/23 10/15/24 History magnesium oxide 400 mg (241.3 mg 400 mg PO DAILY 08/20/24 10/15/24 History magnesium) tablet semaglutide 2 mg/dose (8 mg/3 mL) 2 mg subcut QWEEK 08/20/24 10/15/24 History subcutaneous pen injector tamsulosin 0.4 mg capsule 0.4 mg PO Q24H 08/20/24 10/15/24 History tizanidine 4 mg tablet 4 mg PO Q12H PRN muscle spasticity 08/20/24 10/15/24 History meloxicam 7.5 mg tablet mg 09/17/24 History Allergies Allergy/AdvReac Type Severity Reaction Status Date / Time No Known Drug Allergies Allergy Verified 10/15/24 11:13 Exam Constitutional Documenting provider has reviewed patient's vital signs: yes Common normals: no apparent distress, oriented x3, healthy appearing, alert and well nourished General appearance: cooperative HENMT Common normals: normocephalic, hearing grossly normal bilaterally and moist oral mucous membranes Head and scalp: normocephalic Eye Common normals: PERRL Pupil: PERRL Neck & C-Spine Common normals: full ROM General: normal visual inspection Chest Common normals: inspection of chest normal Respiratory Common normals: normal respiratory effort, no retractions and no use of accessory muscles Back & Pelvis Lumbar spine/lower back: pain with ROM, lumbar spinal tenderness Lumbar spinal tenderness location: L3, L4 and L5 and straight leg raise negative bilaterally Sacroiliac joints: SI joints normal Other: bilateral negative elizabeth(patricks), gaenslens, thigh thrust, compression test strength 5/5 in BLE sensation intact BLE intermittent cramping to BLE with standing/walking/lying flat Extremity Common normals: normal to inspection and full ROM Neuro Common normals: oriented x3 Sensorium/orientation: alert Psych Common normals: mental status grossly normal, thought process normal, cooperative, affect normal, speech normal and activity/motor behavior normal Speech: normal speech Thought process: normal thought process Assessment and Plan Assessment and Plan (1) Lumbar spondylosis: Assessment and Plan: The patient has had over 3 months of moderate to severe low back pain with functional impairment and inadequate response to conservative care including NSAIDS (unless there are contraindication such as concurrent blood thinners), multiple oral or topical pain medications, and home exercise program/physical therapy.? Patient has completed >6 weeks of guided home exercise program and/or formal physical therapy program without relief of their symptoms.? The Oswestry Disability Index was completed, and the patient scored a 50%.? The patient noted the following:?? moderate to severe pain impacting ADLs, sitting, standing, sleep, social life, travel We discussed the risks and benefits of the procedure with the patient, and we are NOT planning on using sedation as outlined in the guidelines from Medicare unless there is a documented reason that sedation would be strongly recommended.?? ?The procedure will be completed with fluoroscopic guidance.? (2) Lumbar stenosis with neurogenic claudication: Assessment and Plan: negative radiculopathy, mild NC symptoms intermittently (3) Sacroiliitis: Assessment and Plan: significant improvement on exam as noted above (4) Encounter for medication monitoring: Plan 49 year old male with chronic back pain. as noted above significant improvement in SIJ pain and lumbar stenosis with NC, continues to have moderate to severe facet mediated low back pain. pt has failed tylenol, motrin, mobic, and baclofen. will start hydrocodone-acetaminophen 5-325mg once daily PRN moderate to severe pain 7 tabs to last 7 days, pt to call for refill and discuss response. risks vs benefits reviewed. update uds today. trial bilateral L4-5 L5-S1 facet medial branch block x2 in consideration of RFA> should pt fail MBBs we will consider spinal cord stim trial as discussed today. f/u after nerve block.
== END 2024-10-24 08:28 | disposition home or self-care (01) ==
PROVIDERS: PCP Family Medicine; Visit Provider Nurse Practitioner
DX: M47.816 Spondylosis without myelopathy or radiculopathy, lumbar region (principal); M48.062 Spinal stenosis, lumbar region with neurogenic claudication; M46.1 Sacroiliitis, not elsewhere classified; Z51.81 Encounter for therapeutic drug level monitoring
CPT/HCPCS: G0463

== ENCOUNTER 2024-11-12 09:17 | Day surgery (SDC) | payer OTHER, SELFPAY ==
--- OUTSIDE RECORDS SUMMARY | 2024-11-12 09:20 | XMS_ITS | Encounter Summary ---
Author Organization [facility] Sys tem Address [id number] [address] [place] [address] Care Team Providers Care Restaurant Team Member Name Role Phone Shahbaz Monk DO Primary Care Provider + [phone] Encounter Details Date Type Department Care Team (Late st Contact Info) Description 02/28/2023 Orders Only [facility] - Family Medicine [address] [place] [id number] Shahbaz Monk DO [address] [facility], [facility] [place] [address] Social History Tobacco Use Types Packs/Day Years Used Date Smoking Tobacco: Every Day Cigarettes 0.5 35.4 Started: 1989 Smokeless Tobacco: Never Alcohol Use Standard Drinks/Week Comments Yes 0 (1 standard drink = 0.6 oz pur e alcohol) Occasional 6 pack once a month Overall Financial Resource Strain (CARDIA) Answe r Date Recorded How hard is it for you to pa y for the very basics like food, housing, medical care, and heating? Not hard at all 08/14/2022 PHQ-2 Answer Date Recorded Total Score 0 12/03/2022 PRAPARE - Transportation Answer Date Re corded In the past 12 months, has l ack of transportation kept you from medical appointments or from getting medications? No 09/2022 In the past 12 months, has l ack of transportation kept you from meetings, work, or from getting things needed for daily living? No 08/14/2022 Housing Instability Answer Date Recorde d Are you worried or concerned that in the next two months you may not have stable housing that you own, rent or stay in as a part of a household? No 08/14/2022 Childcare Answer Date Recorded Childcare Unknown 11/22/2018 Employment Answer Date Recorded Employment Unknown 11/22/2018 Purpose - Life Answer Date Recorded Purpose and direction in life Unknown Sex and Gender Information Value Date Recorded Sex Assigned at Not on file Legal Sex Male 12:07 PM EDT Gender Identity Not on file Sexual Orientation Not on file documented as of this encounter Plan of Treatment Upcoming Encounters Date Type Department Care Team (Late st Contact Info) Description 01/14/2025 4:30 PM EDT Office Visit [facility] - Family Medicine [address] [place] [address] Shahbaz Monk DO [address] [facility] [place] [address] documented as of this encounter Visit Diagnoses Not on filedocumented in this encounter Additional Health Concerns Assessment Noted Time PHQ-9 Depression Total Score: 0 12/04/19 23 11:17 AM EDT documented as of this encounter Care Teams Restaurant Team Member Relationship Specialty Start Date End Date Shahbaz Monk DO [address] [facility] [place] [address] PCP - General Family Medicine 02/11/22 documented as of this encounter
--- OUTSIDE RECORDS SUMMARY | 2024-11-12 09:20 | XMS_ITS | Encounter Summary ---
Author Organization [facility] [employer] Sys tem Address [id number] [address] [place] [address] Care Team Providers Care Marketing Liaison Name Role Phone Shahbaz Monk Primary Care Provider + [phone] Encounter Details Date Type Department Care Team (Late st Contact Info) Description 01/10/2024 Orders Only [facility] - Family Medicine [address] [place] [address] Ref Prov, [place] [address] Social History Tobacco Use Types Packs/Day Years Used Date Smoking Tobacco: Former Cigarettes 0.5 33.2 1 990 - 09/11/2022 Smokeless Tobacco: Never Alcohol Use Standard Drinks/Week Comments Not Currently 0 (1 standard drink = 0.6 oz pure alcohol) Occasional 6 pack once a month [facility] Utilities Answer Date Recorded In the past 12 months has [facility] electric, gas, oil, or water company threatened to shut off services in your home? No 05/03/2023 Social Connection and Isolat ion Panel [NHANES] Answer Date Recorded In a typical week, how many times do you talk on the phone with family, friends, or neighbors? More than three times a week 03/07/2023 How often do you get togethe r with friends or relatives? Three times a week 03/07/2023 How often do you attend chur ch or synagogue services? Never 03/07/2023 Do you belong to any clubs o r organizations such as yazdanism groups, unions, fraternal or athletic groups, or school groups? No 03/07/2023 How often do you attend meet ings of the clubs or organizations you belong to? Never 03/07/2023 Are you , , di vorced, , never , or living with a partner? 03/07/2023 AUDIT-C Answer Date Recorded Q1: How often do you have a drink containing alc ohol? 2-4 times a month 05/03/2023 Q2: How many drinks containi ng alcohol do you have on a typical day when you are drinking? 1 or 2 05/03/2023 Q3: How often do you have si x or more drinks on one occasion? Never 05/03/2023 Overall Financial Resource Strain (CARDIA) Answe r Date Recorded How hard is it for you to pa y for the very basics like food, housing, medical care, and heating? Not hard at all 01/12/2024 PHQ-2 Answer Date Recorded Total Score 0 01/02/2024 [facility] Occupat ional Health - Occupational Stress Questionnaire Answer Date Recorded Do you feel stress - tense, restless, nervous, or anxious, or unable to sleep at night because your mind is troubled all the time - these days? Not at all 03/07/2023 Exercise Vital Sign Answer Date Recorde d On average, how many days pe r week do you engage in moderate to strenuous exercise (like a brisk walk)? 1 day 03/07/2023 On average, how many minutes do you engage in exercise at this level? 10 min 03/07/2023 PRAPARE - Transportation Answer Date Re corded In the past 12 months, has l ack of transportation kept you from medical appointments or from getting medications? No 06/2023 In the past 12 months, has l ack of transportation kept you from meetings, work, or from getting things needed for daily living? No 01/12/2024 Housing Instability Answer Date Recorde d Are you worried or concerned that in the next two months you may not have stable housing that you own, rent or stay in as a part of a household? No 01/12/2024 Childcare Answer Date Recorded Do problems getting child ca re make it difficult for you to work or study? No 03/07/2023 Employment Answer Date Recorded Do you need help finding a [facility] career center and/or a training program? No 03/07/2023 Hunger Screening Answer Date Recorded Within the past 12 months we worried whether our food would run out before we got money to buy more. Never True 01/12/2024 Within the past 12 months th e food we bought just didn't last and we didn't have money to get more. Never True 01/12/2024 Purpose - Life Answer Date Recorded I have a purpose and direction in my life. Stron gly Agree 03/07/2023 Sex and Gender Information Value Date Recorded [...] Medicine - Family Medicine [address] [place] [address] Shahbaz Monk DO [address] [facility], [place] [address] documented as of this encounter Procedures Procedure Name Priority Date/Time Associated Diagnosis Comments CT ABDOMEN AND PELVIS W CONT Routine 01/08/2024 7:11 AM EDT documented in this encounter Results * CT abdomen and pelvis with contrast (01/08/2024 7:11 AM EDT) Anatomical Region Laterality Modality Body, Abdomen, Body Covera N/A Compu gaurav Tomography us Not In System Ref Prov IMG CT ORDERABLES Final R esult documented in this encounter Visit Diagnoses Not on filedocumented in this encounter Additional Health Concerns Assessment Noted Time PHQ-9 Depression Total Score: 0 01/02/20 24 4:09 PM EDT documented as of this encounter Care Teams Marketing Liaison Relationship Specialty Start Date End Date Shahbaz Monk DO [address], [facility] [place] [address] PCP - General Family Medicine 02/11/22 documented as of this encounter
--- OUTSIDE RECORDS SUMMARY | 2024-11-12 09:20 | XMS_ITS | Encounter Summary ---
Author Organization [facility] [employer] s tem Address [id number] [address] [place] [address] Care Team Providers Care Inspector Crystal Name Role Phone Shahbaz Monk DO Primary Care Provider + [phone] Encounter Details Date Type Department Care Team (Late st Contact Info) Description 04/04/2024 Orders Only [facility] - Family Medicine [address] [place] [address] Shahbaz Monk DO [address], [facility] [place] [address] Social History Tobacco Use Types Packs/Day Years Used Date Smoking Tobacco: Former Cigarettes 0.5 33.2 1 990 - 09/11/2022 Smokeless Tobacco: Never Alcohol Use Standard Drinks/Week Comments Not Currently 0 (1 standard drink = 0.6 oz pure alcohol) Occasional 6 pack once a month [facility] Utilities Answer Date Recorded In the past 12 months has [employer], or water [employer] threatened to shut off services in your [...] often do you attend chur ch or zoroastrian services? Never 03/07/2023 Do you belong to any clubs o r organizations such as yarsanism groups, unions, fraternal or athletic groups, or [...] PHQ-2 Answer Date Recorded Total Score 0 04/03/2024 [facility] [place] of Occupat ional Health - Occupational Stress [...] Recorded Do you need help finding a [facility] and/or a training program? No 03/07/2023 Hunger Screening Answer Date Recorded Within the past 12 months we worried whether our food would run out before we got money to buy more. Never True 04/03/2024 Within the past 12 months th e food we bought just didn't last and we didn't have money to get more. Never True 04/03/2024 Purpose - Life Answer Date Recorded I [...] Medicine - Family Medicine [address] [place] [address] Shahbaz Monk DO [address] [place] [address] documented as of this encounter Procedures Procedure Name Priority Date/Time Associated Diagnosis Comments HOME SLEEP STUDY Routine 10/26/2016 4:02 PM EDT documented in this encounter Visit Diagnoses Not on filedocumented in this encounter Additional Health Concerns Assessment Noted Time PHQ-9 Depression Total Score: 0 04/03/20 24 4:37 PM EDT documented as of this encounter Care Teams Inspector Crystal Relationship Specialty Start Date End Date Shahbaz Monk DO [address] [place] [address] PCP - General Family Medicine 02/11/22 documented as of this encounter
--- OUTSIDE RECORDS SUMMARY | 2024-11-12 09:20 | XMS_ITS | Encounter Summary ---
Author Organization [employer] s tem Address [facility] [id number] [address] [place] [address] Care Team Providers Care Cocktail Lounge Manager Name Role Phone Shahbaz Monk DO Primary Care Provider + [phone] Reason for Visit * Reason Onset Date Comments Med Refill 06/22/2022 Encounter Details Date Type Department Care Team (Late Contact Info) Description 06/22/2022 Refill [facility] - Family Medicine [address] [place] [phone] Kath Irvin CMA Degeneration of lumbar intervertebral disc Social History Tobacco Use Types Packs/Day Years Used Date Smoking Tobacco: Every Day Cigarettes 0.5 35.4 Started: 1989 Smokeless Tobacco: Never Alcohol Use Standard Drinks/Week Comments Yes 0 (1 standard drink = 0.6 oz pur e alcohol) Occasional 6 pack once a month PHQ-2 Answer Date Recorded Total Score 2 05/03/2022 Childcare Answer Date Recorded Childcare Unknown 11/22/2018 [...] Upcoming Encounters Date Type Department Care Team ([facility] Contact Info) Description 01/14/2025 4:30 PM EDT Office Visit [facility] - Family Medicine [address] [place] [address] Shahbaz Monk DO [address] [place] [address] documented as of this encounter Visit Diagnoses Diagnosis Degeneration of lumbar intervertebral disc Degeneration of lumbar or lumbosacral intervertebral disc documented in this encounter Additional Health Concerns Assessment Noted Time PHQ-9 Depression Total Score: 2 05/03/20 22 3:45 PM EST documented as of this encounter Care Teams Cocktail Lounge Manager Relationship Specialty Start Date End Date Shahbaz Monk DO [address] [facility] [place] [address] PCP - General Family Medicine 02/11/22 documented as of this encounter
--- OUTSIDE RECORDS SUMMARY | 2024-11-12 09:20 | XMS_ITS | Encounter Summary ---
Author Organization [facility] [employer] Sys tem Address [id number] [address] [place] [address] Care Team Providers Care Superintendent Distribution Name Role Phone Shahbaz Monk Primary Care Provider + [phone] Encounter Details Date Type Department Care Team (Late st Contact Info) Description 08/31/2024 Orders Only [facility] - Family Medicine [address] [place] [address] Ref Prov, [place] [address] Social History Tobacco Use Types Packs/Day Years Used Date Smoking Tobacco: Former Cigarettes 0.5 33.2 1 990 - 09/11/2022 Smokeless Tobacco: Never Alcohol Use Standard Drinks/Week Comments Not Currently 0 (1 standard drink = 0.6 oz pure alcohol) Occasional 6 pack once a month [facility] Utilities Answer Date Recorded In the past 12 months has [facility] electric, gas, oil, or water company [...] often do you attend chur ch or anabaptist services? Never 03/07/2023 Do you belong to any clubs o r organizations such as islam groups, unions, fraternal or athletic groups, or [...] PHQ-2 Answer Date Recorded Total Score 0 05/28/2024 [facility] of Occupat ional Health - Occupational [...] Recorded Do you need help finding a [facility] career center and/or a training program? No 03/07/2023 Hunger Screening Answer Date Recorded Within the past 12 months we worried whether our food would run out before we got money to buy more. Never True 05/28/2024 Within the past 12 months th e food we bought just didn't last and we didn't have money to get more. Never True 05/28/2024 Purpose - Life Answer Date Recorded I [...] - Family Medicine [address] [place] [address] Shahbaz Monk DO [address] [facility] [address] documented as of this encounter Procedures Procedure Name Priority Date/Time Associated Diagnosis Comments MR LUMBAR SPINE WO CONT Routine 08/31/2024 7:42 AM EDT documented in this encounter Results * MR lumbar spine without contrast (08/31/2024 7:42 AM EDT) Anatomical Region Laterality Modality MSK, Neuro, Spine, L-spine, Spine Covera N/A Magnetic Resonance us Not In System Ref Prov IMG MRI ORDERABLES Final Result documented in this encounter Visit Diagnoses Not on filedocumented in this encounter Additional Health Concerns Assessment Noted Time PHQ-9 Depression Total Score: 0 05/28/20 24 2:30 PM EST documented as of this encounter Care Teams Superintendent Distribution Relationship Specialty Start Date End Date Shahbaz Monk DO [address] [facility] [address] PCP - General Family Medicine 02/11/22 documented as of this encounter
--- OUTSIDE RECORDS SUMMARY | 2024-11-12 09:20 | XMS_ITS | Encounter Summary ---
[facility] Organization [facility] Address [facility] [place] [facility]-[id number] [address] [place] [address] Care Team Providers Care Parcel Post Delivery Name Role Phone Shahbaz Monk DO Primary Care Provider + [phone] Reason for Visit * Reason Comments Med Refill Encounter Details Date Type Department Care Team ([facility] Contact Info) Description 11/06/2024 Refill [facility] - Family Medicine [address] [place] [address] Shahbaz Monk DO [address], [facility] [place] [address] Social History Tobacco Use Types Packs/Day Years Used Date Smoking Tobacco: Former Cigarettes 0.5 33.2 1 990 - 09/11/2022 Smokeless Tobacco: Never Alcohol Use Standard Drinks/Week Comments Not Currently 0 (1 standard drink = 0.6 oz pure alcohol) Occasional 6 pack once a month [facility] Utilities Answer Date Recorded In the past 12 months has [employer], gas, oil, or water [employer] threatened to shut off services in your [...] week 03/07/2023 How often do you attend [facility] or mandaeism services? Never 03/07/2023 Do you belong to any clubs o r organizations such as restorationist groups, unions, fraternal or athletic groups, or [...] PHQ-2 Answer Date Recorded Total Score 0 09/13/2024 [facility] of Occupat ional Health - Occupational Stress [...] Recorded Do you need help finding a [facility] career center and/or a training program? No 03/07/2023 Hunger Screening Answer Date Recorded Within the past 12 months we worried whether our food would run out before we got money to buy more. Never True 09/13/2024 Within the past 12 months th e food we bought just didn't last and we didn't have money to get more. Never True 09/13/2024 Purpose - Life Answer Date Recorded I [...] Medicine [address] [place] [address] Shahbaz Monk DO [address] [place] [address] documented as of this encounter Visit Diagnoses Not on filedocumented in this encounter Additional Health Concerns Assessment Noted Time PHQ-9 Depression Total Score: 0 09/14/19 25 4:14 PM EDT documented as of this encounter Care Teams Parcel Post Delivery Relationship Specialty Start Date End Date Shahbaz Monk DO [address] [facility] [place] [address] PCP - General Family Medicine 02/11/22 documented as of this encounter
--- OUTSIDE RECORDS SUMMARY | 2024-11-12 09:20 | XMS_ITS | Encounter Summary ---
Author Organization [facility] tem Address [facility] [id number] [address] [place] [address] Care Team Providers Care It Telecom Technician Name Role Phone Shahbaz Monk Primary Care Provider + [phone] Encounter Details Date Type Department Care Team (Late st Contact Info) Description 08/22/2023 Orders Only [facility] - Family Medicine [address] [place] [phone] External, Scanning Provider Social History Tobacco Use Types Packs/Day Years Used Date Smoking Tobacco: Former Cigarettes 0.5 33.2 1 990 - 09/11/2022 Smokeless Tobacco: Never Alcohol Use Standard Drinks/Week Comments Yes 0 (1 standard drink = 0.6 oz pur e alcohol) Occasional 6 pack once a month [facility] Utilities Answer Date Recorded In the past 12 months has e electric, gas, oil, or water company threatened [...] often do you attend chur ch or confucianist services? Never 03/07/2023 Do you belong to any clubs o r organizations such as taoism groups, unions, fraternal or athletic groups, or [...] PHQ-2 Answer Date Recorded Total Score 0 08/04/2023 [facility] of Occupat ional Health - [...] household? No 08/14/2022 Childcare Answer Date Recorded Do problems getting child ca re make it difficult for you to work or study? No 03/07/2023 Employment Answer Date Recorded Do you need help finding a [facility] career [facility] and/or a training program? No 03/07/2023 Hunger Screening Answer Date Recorded Within the past 12 months we worried whether our food would run out before we got money to buy more. Never True 08/04/2023 Within the past 12 months th e food we bought just didn't last and we didn't have money to get more. Never True 08/04/2023 Purpose - Life Answer Date Recorded I [...] - Family Medicine [address] [place] [address] Shahbaz Monk DO [address], [place] [address] documented as of this encounter Procedures Procedure Name Priority Date/Time Associated Diagnosis Comments CT ABDOMEN AND PELVIS WO CONT Routine 08/22/2023 2:29 PM EDT XR CHEST 1 VW Routine 08/22/2023 2:28 PM EDT documented in this encounter Results * CT abdomen and pelvis without contrast (08/22/2023 2:29 PM EDT) Anatomical Region Laterality Modality Body, Abdomen, Body Covera N/A Compu gaurav Tomography us Scanning Provider External IMG CT ORDERABLES Fin al Result * X-ray chest 1 view (08/22/2023 2:28 PM EDT) Anatomical Region Laterality Modality Body, Chest N/A Computed Radiogr aphy us Scanning Provider External IMG DIAGNOSTIC IMAGIN G ORDERABLES Final Result documented in this encounter Visit Diagnoses Not on filedocumented in this encounter Additional Health Concerns Assessment Noted Time PHQ-9 Depression Total Score: 0 08/04/19 24 2:38 PM EST documented as of this encounter Care Teams It Telecom Technician Relationship Specialty Start Date End Date Shahbaz Monk DO [address] [place] [address] PCP - General Family Medicine 02/11/22 documented as of this encounter
--- OUTSIDE RECORDS SUMMARY | 2024-11-12 09:20 | XMS_ITS | Encounter Summary ---
Author Organization [employer] [facility] tem Address [id number] [address] [place] [address] Care Team Providers Care Supervisor Metal Hanging Name Role Phone Shahbaz Monk DO Primary Care Provider + [phone] Encounter Details Date Type Department Care Team ([facility] Contact Info) Description 02/25/2022 Orders Only [facility] - Family Medicine [address] [place] [address] Shahbaz Monk DO [address], [facility] [place] [address] Social History Tobacco Use Types Packs/Day Years Used Date Smoking Tobacco: Every Day Smokeless Tobacco: Never Alcohol Use Standard Drinks/Week Comments Yes 0 (1 standard drink = 0.6 oz pur e alcohol) occasional Childcare Answer Date Recorded Childcare Unknown 11/22/2018 Employment Answer Date Recorded Employment Unknown 11/22/2018 Purpose - Life Answer Date Recorded Purpose and direction in life Unknown Sex and Gender Information Value Date Recorded Sex Assigned at Not on file Legal Sex Male 12:07 PM EDT Gender Identity Not on file Sexual Orientation Not on file COVID-19 Exposure Response Date Recorded In the last month, have you been in contact with someone who was confirmed or suspected to have Coronavirus / COVID-19? No / Unsure 02/10/2022 1:44 PM EDT documented as of this encounter Plan of Treatment Upcoming Encounters Date Type Department Care Team ([facility] Contact Info) Description 01/14/2025 4:30 PM EDT Office Visit [facility] - Family Medicine [address] [place] [address] Shahbaz Monk DO [address] [facility] [place] [address] documented as of this encounter Visit Diagnoses Not on filedocumented in this encounter Care Teams Supervisor Metal Hanging Relationship Specialty Start Date End Date Shahbaz Monk DO [address] [facility] [place] [address] PCP - General Family Medicine 02/11/22 documented as of this encounter
--- OUTSIDE RECORDS SUMMARY | 2024-11-12 09:20 | XMS_ITS | Encounter Summary ---
Author Organization [facility] Address [facility][id number] [address] [place] [address] Care Team Providers Care Plywood Factory Worker Name Role Phone Shahbaz Monk DO Primary Care Provider + [phone] Reason for Visit * Reason Onset Date Comments Med Refill 09/12/2023 Encounter Details Date Type Department Care Team (Late st Contact Info) Description 09/12/2023 Telephone [facility] Internal Medicine - Family Medicine [address] [place] [address] Shahbaz Monk DO [address], [facility] [place] [address] Med Refill Social History Tobacco Use Types Packs/Day Years Used Date Smoking Tobacco: Former Cigarettes 0.5 33.2 1 990 - 09/11/2022 Smokeless Tobacco: Never Alcohol Use Standard Drinks/Week Comments Not Currently 0 (1 standard drink = 0.6 oz pure alcohol) Occasional 6 pack once a month [facility] Utilities Answer Date Recorded In the past 12 months has [employer], gas, oil, or water [employer] threatened to shut off services in your [...] week 03/07/2023 How often do you attend [facility] or pentecostal services? Never 03/07/2023 Do you belong to any clubs o r organizations such as hindu groups, unions, fraternal or athletic groups, or [...] PHQ-2 Answer Date Recorded Total Score 0 08/30/2023 [facility] of Occupat ional Health - [...] Recorded Do you need help finding a [facility] career center and/or a training program? No 03/07/2023 Hunger Screening Answer Date Recorded Within the past 12 months we worried whether our food would run out before we got money to buy more. Never True 08/30/2023 Within the past 12 months th e food we bought just didn't last and we didn't have money to get more. Never True 08/30/2023 Purpose - Life Answer Date Recorded I have a purpose and direction in my life. Stron gly Agree 03/07/2023 Sex and Gender Information Value Date Recorded Sex Assigned at Not on file Legal Sex Male 12:07 PM EDT Gender Identity Not on file Sexual Orientation Not on file documented as of this encounter Miscellaneous Notes * Telephone Encounter - Johanna Darden - 09/12/2023 10:16 AM EDT Patient called and needs his semaglutide sent to [facility], he also wanted to know if it was time to go up in dose * Telephone Encounter - Shahbaz Monk DO - 09/12/2023 10:16 AM EDT Yes we can increase the dose. I sent in 3 months' worth for the 0.6 mg dose * Telephone Encounter - Johanna Darden - 09/12/2023 10:16 AM EDT Thank you documented in this encounter Plan of Treatment Upcoming Encounters Date Type Department Care Team (Late st Contact Info) Description 01/14/2025 4:30 PM EDT Office Visit [facility] - [place] [address] Shahbaz Monk DO [address], [place] [address] documented as of this encounter Visit Diagnoses Not on filedocumented in this encounter Additional Health Concerns Assessment Noted Time PHQ-9 Depression Total Score: 0 08/30/19 24 3:49 PM EDT documented as of this encounter Care Teams Plywood Factory Worker Relationship Specialty Start Date End Date Shahbaz Monk DO [address], [place] [address] PCP - General Family Medicine 02/11/22 documented as of this encounter
--- OUTSIDE RECORDS SUMMARY | 2024-11-12 09:20 | XMS_ITS | Encounter Summary ---
Author Organization [facility] [employer] tem Address [facility]-[id number] [address] [place] [address] Care Team Providers Care Shale Planer Operator Name Role Phone NatyShahbaz quintero Molina PERKINS Primary Care Provider + [phone] Encounter Details Date Type Department Care Team (Late st Contact Info) Description 02/24/2024 Orders Only [facility] - Family Medicine [address] [place] [address] Kath Irvin CMA Right ureteral stone Social History Tobacco Use Types Packs/Day Years Used Date Smoking Tobacco: Former Cigarettes 0.5 33.2 1 990 - 09/11/2022 Smokeless Tobacco: Never Alcohol Use Standard Drinks/Week Comments Not Currently 0 (1 standard drink = 0.6 oz pure alcohol) Occasional 6 pack once a month [facility] Utilities Answer Date Recorded In the [...] often do you attend chur ch or methodist services? Never 03/07/2023 Do you belong to any clubs o r organizations such as alevism groups, unions, fraternal or athletic groups, or [...] Answer Date Recorded Total Score 0 01/02/2024 [facility] of Occupat ional Health - Occupational Stress [...] Recorded Do you need help finding a [facility] career center and/or a training program? No 03/07/2023 Hunger Screening Answer Date Recorded Within the past 12 months we worried whether our food would run out before we got money to buy more. Never True 01/19/2024 Within the past 12 months th e food we bought just didn't last and we didn't have money to get more. Never True 01/19/2024 Purpose - Life Answer Date Recorded I [...] - Family Medicine [address] [place] [address] Shahbaz Monk DO [address], [place] [address] documented as of this encounter Procedures Procedure Name Priority Date/Time Associated Diagnosis Comments AMB REFERRAL TO UROLOGY Routine 02/24/2024 8:42 AM EDT Right ureteral stone URINE CULTURE Routine 02/23/2024 2:01 PM EDT URINALYSIS Routine 02/23/2024 1:40 PM EDT documented in this encounter Results * Ambulatory referral to Urology (02/24/2024 8:42 AM EDT) us Itzel White APRN-CAFE WORKER OUTPATIENT REFERRAL RICO CRUZ Final Result Performing Organization Address [facility] Co de Phone Number MANUALLY TRANSCRIBED RESULTS * Urine Culture (02/23/2024 2:01 PM EDT) Urine us Not In System Ref Prov MICROBIOLOGY - GENERAL OR DERABLES Final Result Performing Organization Address [facility] Co de Phone Number MANUALLY TRANSCRIBED RESULTS * Urinalysis (02/23/2024 1:40 PM EDT) us Not In System Ref Prov URINE ORDERABLES Final Re sult MANUALLY TRANSCRIBED RESULTS documented in this encounter Visit Diagnoses Diagnosis Right ureteral stone documented in this encounter Additional Health Concerns Assessment Noted Time PHQ-9 Depression Total Score: 0 01/02/20 24 4:09 PM EDT documented as of this encounter Care Teams Shale Planer Operator Relationship Specialty Start Date End Date Shahbaz Monk DO [address], [place] [address] PCP - General Family Medicine 02/11/22 documented as of this encounter
--- OUTSIDE RECORDS SUMMARY | 2024-11-12 09:20 | XMS_ITS | Encounter Summary ---
Author Organization [facility] tem Address [facility] [place]-[id number] [address] [place] [address] Care Team Providers Care Burn Out Tender Lace Name Role Phone Shahbaz Monk Primary Care Provider + [phone] Encounter Details Date Type Department Care Team (Late st Contact Info) Description 12/07/2022 Orders Only [facility] - Family Medicine [address] [place] [address] Itzel White, VALVE AND REGULATOR REPAIRER-TRAY SETTER [address] [place] [address] Social History Tobacco Use Types Packs/Day Years [...] - Family Medicine [address] [place] [address] Shahbaz Monk DO [address], [place] [address] documented as of this encounter Procedures Procedure Name Priority Date/Time Associated Diagnosis Comments HM COLOGUARD Routine 08/28/2021 documented in this encounter Results * HM COLOGUARD (08/28/2021) Itzel White VALVE AND REGULATOR REPAIRER-TRAY SETTER HEALTH MAINTENANCE Final Result MANUALLY TRANSCRIBED RESULTS documented in this encounter Visit Diagnoses Not on filedocumented in this encounter Additional Health Concerns Assessment Noted Time PHQ-9 Depression Total Score: 0 12/04/19 23 11:17 AM EDT documented as of this encounter Care Teams Burn Out Tender Lace Relationship Specialty Start Date End Date Shahbaz Monk DO [address] [facility] [address] PCP - General Family Medicine 02/11/22 documented as of this encounter
--- OUTSIDE RECORDS SUMMARY | 2024-11-12 09:20 | XMS_ITS | Encounter Summary ---
Author Organization [facility] Address [facility] [place]-[id number] [address] [place] [address] Care Team Providers Care Business Performance Specialist Name Role Phone SandhyaShahbaz gillespie Primary Care Provider + [phone] Encounter Details Date Type Department Care Team (Late st Contact Info) Description 08/21/2024 Orders Only [facility] - Family Medicine [address] [place] [phone] Kath Irvin CMA Lumbar disc prolapse with compression radiculopathy Social History Tobacco Use Types Packs/Day Years Used Date Smoking Tobacco: Former Cigarettes 0.5 33.2 1 990 - 09/11/2022 Smokeless Tobacco: Never Alcohol Use Standard Drinks/Week Comments Not Currently 0 (1 standard drink = 0.6 oz pure alcohol) Occasional 6 pack once a month [facility] Utilities Answer Date Recorded In the past 12 months has [facility] electric, gas, oil, or water company [...] often do you attend chur ch or jew services? Never 03/07/2023 Do you belong to any clubs o r organizations such as orthodox groups, unions, fraternal or athletic groups, or [...] Answer Date Recorded Total Score 0 05/28/2024 [facility] of Occupat ional Health - Occupational [...] Recorded Do you need help finding a [facility] career center and/or a training [...] Medicine - Family Medicine [address] [place] [address] Shahbaz Monk DO [address], [place] [address] documented as of this encounter Procedures Procedure Name Priority Date/Time Associated Diagnosis Comments AMB REFERRAL TO PAIN MANAGEMENT Routine 08/21/2024 1:58 PM EDT Lumbar disc prolapse with compression radiculopathy documented in this encounter Results * Ambulatory referral to Pain Management ([facility]) (08/21/2024 1:58 PM EDT) Shahbaz Monk DO OUTPATIENT REFERRAL ORDERABL ES Final Result MANUALLY TRANSCRIBED RESULTS documented in this encounter Visit Diagnoses Diagnosis Lumbar disc prolapse with compression radiculopathy Displacement of lumbar intervertebral disc without myelopathy documented in this encounter Additional Health Concerns Assessment Noted Time PHQ-9 Depression Total Score: 0 05/28/20 24 2:30 PM EST documented as of this encounter Care Teams Business Performance Specialist Relationship Specialty Start Date End Date Shahbaz Monk DO [address], [place] [address] PCP - General Family Medicine 02/11/22 documented as of this encounter
--- OUTSIDE RECORDS SUMMARY | 2024-11-12 09:20 | XMS_ITS | Clinical Summary ---
Author Organization [facility] Address [address] [place] [address] Care Team Providers Care Systems Accountant Name Role Phone Unavailable Primary Care Provider Unavailabl e Social History Tobacco Use Types Packs/Day Years Used Date Smoking Tobacco: Never Assessed Sex and Gender Information Value Date Recorded Sex Assigned at Not on file Legal Sex Male 6:46 PM EDT Gender Identity Not on file Sexual Orientation Not on file Last Filed Vital Signs Vital Sign Reading Time Taken Comments Blood Pressure 142/93 06/25/2019 12:00 PM EST Pulse - - Temperature - - Respiratory Rate - - Oxygen Saturation - - Inhaled Oxygen Concentration - - Weight 110 kg (242 lb) 06/25/2019 12:00 PM EST Height 167.6 cm (5' 6 ) 06/25/2019 12:00 PM EST Body Mass Index 39.06 06/25/2019 12:00 PM EST Plan of Treatment Not on file
--- OUTSIDE RECORDS SUMMARY | 2024-11-12 09:20 | XMS_ITS | Clinical Summary ---
Author Organization [facility] Address [address] [place] [address] Phone Care Team Providers Care Community Service Specialist Name Role Phone Yandel Garcia DO Primary Care Provider Social History Tobacco Use Types Packs/Day Years Used Date Smoking Tobacco: Never Assessed Sex and Gender Information Value Date Recorded Sex Assigned at Not on file Legal Sex Male 10:39 AM EST Gender Identity Not on file Sexual Orientation Not on file Plan of Treatment Not on file Care Teams Community Service Specialist Relationship Specialty Start Date End Date Yandel Garcia DO [address] [place] [address] PCP - General 10/24/17
--- OUTSIDE RECORDS SUMMARY | 2024-11-12 09:20 | XMS_ITS | Encounter Summary ---
Author Organization [employer] s tem Address [facility] [place]-[id number] [address] [place] [address] Care Team Providers Care Upholstery Instructor Name Role Phone Shahbaz Monk DO Primary Care Provider [phone] Encounter Details Date Type Department Care Team ([facility] Contact Info) Description 03/02/[address] [facility] [address] [place] [address] External, Scanning Provider Social History Tobacco Use Types Packs/Day Years Used Date Smoking Tobacco: Every Day Cigarettes 0.5 35.4 Started: 1991 Smokeless Tobacco: Never Alcohol Use Standard Drinks/Week Comments Yes 0 (1 standard drink = 0.6 oz pur e alcohol) Occasional 6 pack once a month Childcare Answer Date Recorded Childcare Unknown 11/22/2018 [...] or suspected to have Coronavirus / COVID-19? Yes 03/02/2022 4:16 PM EDT documented as of this encounter Plan of Treatment Upcoming Encounters Date Type Department Care Team ([facility] Contact Info) Description 01/14/2025 4:30 PM EDT Office Visit [facility] Internal Medicine - Family Medicine [address] [place] [address] Shahbaz Monk DO [address], [place] [address] documented as of this encounter Procedures Procedure Name Priority Date/Time Associated Diagnosis Comments LIPID PROFILE Routine 06/01/2021 documented in this encounter Results * (ABNORMAL) Lipid profile (06/01/2021) External Cholesterol 123 < - 200 MANUALLY TRANSCRIBED RESULTS External Cholesterol:Hdl 4.2 < - 5.0 MANUALLY TRANSCRIBED RESULTS External Hdl Cholesterol 23 >40 MANUALLY TRANSCRIBED RESULTS External Ldl (Calc) 52 < - 100 MANUALLY TRANSCRIBED RESULTS External Triglycerides 397(A) < - 150 MANUALLY TRANSCRIBED RESULTS 06/01/2021 us Scanning Provider External LAB BLOOD ORDERABLES Final Result Performing Organization Address City/State/[facility] Co de Phone Number MANUALLY TRANSCRIBED RESULTS documented in this encounter Visit Diagnoses Not on filedocumented in this encounter Care Teams Upholstery Instructor Relationship Specialty Start Date End Date Shahbaz Monk DO [address] [place] [address] PCP - General Family Medicine 02/11/22 documented as of this encounter
--- OUTSIDE RECORDS SUMMARY | 2024-11-12 09:20 | XMS_ITS | Encounter Summary ---
Author Organization [facility] Explorer Sys tem Address [id number] [address] [place] [address] Care Team Providers Care Steward/Stewardess Lounge Name Role Phone Shahbaz Monk Primary Care Provider + [phone] Encounter Details Date Type Department Care Team (Late st Contact Info) Description 08/23/2023 Orders Only [facility] - Family Medicine [address] [place] [address] External, Scanning Provider Social History Tobacco Use Types Packs/Day Years Used Date Smoking Tobacco: Former Cigarettes 0.5 33.2 1 990 - 09/11/2022 Smokeless Tobacco: Never Alcohol Use Standard Drinks/Week Comments Yes 0 (1 standard drink = 0.6 oz pur e alcohol) Occasional 6 pack once a month [facility] Utilities Answer Date Recorded In [...] often do you attend chur ch or church services? Never 03/07/2023 Do you belong to any clubs o r organizations such as yazidism groups, unions, fraternal or athletic groups, or [...] Answer Date Recorded Total Score 0 08/04/2023 [facility] of Occupat ional Health - [...] Recorded Do you need help finding a [facility] career center and/or a training program? No [...] - Family Medicine [address] [place] [address] Shahbaz Monk DO [address], [place] [address] documented as of this encounter Procedures Procedure Name Priority Date/Time Associated Diagnosis Comments ECG 12-LEAD Routine 08/22/2023 2:11 PM EDT documented in this encounter Results * ECG 12 lead (08/22/2023 2:11 PM EDT) us Scanning Provider External ECG ORDERABLES Final Result MANUALLY TRANSCRIBED RESULTS documented in this encounter Visit Diagnoses Not on filedocumented in this encounter Additional Health Concerns Assessment Noted Time PHQ-9 Depression Total Score: 0 08/04/19 24 2:38 PM EST documented as of this encounter Care Teams Steward/Stewardess Lounge Relationship Specialty Start Date End Date Shahbaz Monk DO [address] [facility], [place] [address] PCP - General Family Medicine 02/11/22 documented as of this encounter
--- OUTSIDE RECORDS SUMMARY | 2024-11-12 09:20 | XMS_ITS | Encounter Summary ---
Author Organization [facility] Hotelbar Sys tem Address [id number] [address] [place] [address] Care Team Providers Care Paper Stripper Name Role Phone Shahbaz Monk Primary Care Provider + [phone] Encounter Details Date Type Department Care Team (Late st Contact Info) Description 03/06/2024 Orders Only [facility] - Family Medicine [address] [place] [address] Ref Prov, [place] [address] Social History Tobacco Use Types Packs/Day Years Used Date Smoking Tobacco: Former Cigarettes 0.5 33.2 1 990 - 09/11/2022 Smokeless Tobacco: Never Alcohol Use Standard Drinks/Week Comments Not Currently 0 (1 standard drink = 0.6 oz pure alcohol) Occasional 6 pack once a month [facility] Utilities Answer Date Recorded In the past 12 months has [facility] electric, gas, oil, or water company [...] any clubs o r organizations such as muslim groups, unions, fraternal or athletic groups, or [...] Answer Date Recorded Total Score 0 01/02/2024 [facility] of Occupat ional Health - Occupational [...] Recorded Do you need help finding a [facility] career center and/or a training program? No [...] - Family Medicine [address] [place] [address] Shahbaz Monk DO [address] [facility] [place] [address] documented as of this encounter Procedures Procedure Name Priority Date/Time Associated Diagnosis Comments XR ABDOMEN AP 1 VW Routine 03/06/2024 10:27 AM EDT documented in this encounter Results * X-ray abdomen ap 1 view (03/06/2024 10:27 AM EDT) Anatomical Region Laterality Modality Body, Abdomen N/A Computed Radiogr aphy us Not In System Ref Prov IMG DIAGNOSTIC IMAGING OR DERABLES Final Result documented in this encounter Visit Diagnoses Not on filedocumented in this encounter Additional Health Concerns Assessment Noted Time PHQ-9 Depression Total Score: 0 01/02/20 24 4:09 PM EDT documented as of this encounter Care Teams Paper Stripper Relationship Specialty Start Date End Date Shahbaz Monk DO [address] [facility] [place] [place] [address] PCP - General Family Medicine 02/11/22 documented as of this encounter
--- OUTSIDE RECORDS SUMMARY | 2024-11-12 09:20 | XMS_ITS | Encounter Summary ---
Author Organization [employer] s tem Address [id number] [address] [place] [address] Care Team Providers Care Quilter Fixer Name Role Phone Shahbaz Monk DO Primary Care Provider + [phone] Reason for Visit * Reason Comments Med Refill Encounter Details Date Type Department Care Team ([facility] Contact Info) Description 08/06/2022 Refill [facility] - Family Medicine [address] [place] [address] Shahbaz Monk DO [address] [place] [address] Essential (primary) hypertension Social History Tobacco Use Types Packs/Day Years [...] Upcoming Encounters Date Type Department Care Team ([facility] Contact Info) Description 01/14/2025 4:30 PM EDT [facility] [address] [place] [address] Shahbaz Monk DO [address] [facility] [place] [address] documented as of this encounter Visit Diagnoses Diagnosis Essential (primary) hypertension Unspecified essential hypertension documented in this encounter Additional Health Concerns Assessment Noted Time PHQ-9 Depression Total Score: 2 05/03/20 22 3:45 PM EST documented as of this encounter Care Teams Quilter Fixer Relationship Specialty Start Date End Date Shahbaz Monk DO [address] [facility] [place] [address] PCP - General Family Medicine 02/11/22 documented as of this encounter
--- OUTSIDE RECORDS SUMMARY | 2024-11-12 09:20 | XMS_ITS | Clinical Summary ---
Author Organization [employer] tem Address [id number] [address] [place] [address] Care Team Providers Care Biomed Tech Name Role Phone Aleshia Shahbaz Auguste DO Primary Care Provider + [phone] Allergies No known active allergies Medications omeprazole (PriLOSEC) 20 mg capsule Take 1 capsule (20 mg total) by mouth daily as needed. Active SEMAGLUTIDE, WEIGHT LOSS, SUBQ Inject 1.8 mg under the skin once a week. Active oxybutynin (DITROPAN) 5 mg tabletIndicati ons:Urinary urgency TAKE 1 TABLET BY MOUTH IN THE MORNING 90 tablet 1 04/29/20 24 Active tamsulosin (FLOMAX) 0.4 mg capsule Take 1 capsule (0.4 mg total) by mouth nightly. Has questions 05/28/20 24 Active fenofibrate (LOFIBRA) 160 mg tablet TAKE 1 TABLET BY MOUTH ONCE DAILY IN THE MORNING 90 tablet 1 08/08/19 25 Active metoprolol succinate XL (TOPROL XL) 50 mg 24 hr tablet TAKE 1 TABLET BY MOUTH ONCE DAILY EVERY MORNING 90 tablet 1 08/08/19 25 Active magnesium oxide (MAGOX) 400 mg tablet Take 1 tablet (400 mg total) by mouth in the morning. 100 tablet 1 08/28/19 25 Active baclofen (LIORESAL) 10 mg tablet TAKE 1 TO 2 TABLETS BY MOUTH EVERY DAY NEEDED 09/06/19 25 Active meloxicam (MOBIC) 7.5 mg tablet Take 1 tablet (7.5 mg total) by mouth. 09/06/19 25 Active atorvastatin (LIPITOR) 20 mg tablet TAKE 1 TABLET BY MOUTH EVERY MORNING 90 tablet 1 11/07/19 25 Active atorvastatin (LIPITOR) 20 mg tablet TAKE 1 TABLET BY MOUTH EVERY MORNING 90 tablet 1 04/29/20 24 025 Discontinued Active Problems Problem Noted Date Diagnosed Date Other fatigue 04/03/2024 Hypomagnesemia 08/31/2023 Class 2 severe obesity due t o excess calories with serious comorbidity and body mass index (BMI) of 36.0 to 36.9 in adult 04/07/2023 Lumbar disc prolapse with compression radiculopa thy 12/03/2022 Pre-diabetes 12/03/2022 Iliotibial band syndrome 03/02/2022 Osteoarthritis 03/02/2022 History of COVID-19 02/20/2022 Cigarette smoker 05/12/2020 Headache 07/01/2018 Gastroesophageal reflux disease 06/29/2018 Degeneration of lumbar intervertebral disc 06/29 Essential hypertension 06/29/2018 Hypercholesterolemia 06/29/2018 Resolved Problems Problem Noted Date Diagnosed Date Resolved Date Morbid obesity 07/01/2018 04/03/2024 Encounters Date Type Department Care Team Description 11/06/2024 Refill [facility] - Family Medicine [address] [place] [address] Shahbaz Monk DO 09/13/2024 4:15 PM EDT [facility] [address] [place] [address] Shahbaz Monk, Lumbar disc prolapse with compression radiculopathy (Primary Dx); Class 2 severe obesity due to excess calories with serious comorbidity and body mass index (BMI) of 36.0 to 36.9 in adult ([facility]); Essential hypertension; Gastroesophageal reflux disease, unspecified whether esophagitis present 09/13/2024 Travel 08/31/2024 [facility] [address] [place] [address] Ref Prov, Not In System 08/27/2024 Refill [facility] - Family Medicine [address] [place] [address] Jennyfer Morse CMA 08/21/2024 Orders Only [facility] - Family Medicine [address] [place] [address] Kath Irvin CMA Lumbar disc prolapse with compression radiculopathy from Last 3 Months Immunizations Immunization Administration Dates Next Due DTP 02/12/2020 Hep B, Adolescent or Pediatric 08/04/2017 Hepatitis B 02/03/2018,09/07/2017 Tdap 02/12/2020 Family History Medical History Relation Name Comments Diabetes Brother 1 No Known Problems Brother 2 No Known Problems Daughter COPD Father Heart disease Father Prostate cancer Father Diabetes Maternal Grandfather Thyroid disease Maternal Grandmother No Known Problems Mother Naomie No Known Problems Son Relation Name Status Comments Brother 1 Alive Brother 2 Alive Daughter Alive Father (Age 71) Maternal Grandfather Maternal Grandmother Mother Naomie Alive Son Alive Social History Tobacco Use Types Packs/Day Years Used Date Smoking Tobacco: Former Cigarettes 0.5 33.2 1 990 - 09/11/2022 Smokeless Tobacco: Never Tobacco Cessation:Counseling Given: Not Answered Alcohol Use Standard Drinks/Week Comments Not Currently 0 (1 standard drink = 0.6 oz pure alcohol) Occasional 6 pack once a month [employer] Answer Date Recorded In the past 12 months has [employer] electric, gas, oil, or water company threatened [...] often do you attend chur ch or sikh services? Never 03/07/2023 Do you belong to any clubs o r organizations such as adventist groups, unions, fraternal or athletic groups, or [...] Answer Date Recorded Total Score 0 09/13/2024 [facility] of Occupat ional Health - Occupational [...] you need help finding a [facility] career center and/or a training program? No [...] Sign Reading Time Taken Comments Blood Pressure 90/70 09/13/2024 4:16 PM EDT Pulse 100 09/13/2024 4:16 PM EDT Temperature 36.6 C (97.9 F) 09/13/2024 4:16 PM EDT Respiratory Rate 18 09/13/2024 4:16 PM EDT Oxygen Saturation 98% 09/13/2024 4:16 PM EDT Inhaled Oxygen Concentration - - Weight 101.4 kg (223 lb 9.6 oz) 09/13/2024 4:16 PM EDT Height 166.1 cm (5' 5.4 ) 09/13/2024 4:16 PM EDT Body Mass Index 36.76 09/13/2024 4:16 PM EDT Plan of Treatment Upcoming Encounters Date Type Department Care Team (Late st Contact Info) Description 01/14/2025 4:30 PM EDT Office Visit [facility] - Family Medicine [address] [place] [address] Shahbaz Monk, DO [address] [place] [address] Health Maintenance Due Date Last Done Comments Adult BMI Follow Up Plan 1991 Zoster (Shingles) Vaccine (1 of 2) 2023 Colon Cancer Screening 3 Year Cologuard 08/28/2024 0 08/28/2021 Influenza Vaccine 02/11/2025 Adult BMI Screening 09/13/2025 09/13/2024 Depression Screening 09/13/2025 09/13/2024 Tobacco Screening 09/13/2025 09/13/2024 DTaP,Tdap and Td Vaccines (3 - Td or Tdap) 02/11/2030 02/12/2020, 02/12/2020 Medical Devices Not on file Procedures Procedure Name Priority Date/Time Associated Diagnosis Comments MR LUMBAR SPINE WO CONT Routine 08/31/2024 7:42 AM EDT AMB REFERRAL TO PAIN MANAGEMENT Routine 08/21/2024 1:58 PM EDT Lumbar disc prolapse with compression radiculopathy COLOGUARD Routine 08/28/2021 from Last 3 Months or Most Recently Relevant to Health Maintenance Results * MR lumbar spine without contrast (08/31/2024 7:42 AM EDT) Anatomical Region Laterality Modality MSK, Neuro, Spine, L-spine, Spine Covera N/A Magnetic Resonance us Not In System Ref Prov IMG MRI ORDERABLES Final Result * Ambulatory referral to Pain Management ([facility]) (08/21/2024 1:58 PM EDT) us Shahbaz Monk DO OUTPATIENT REFERRAL ORDERABL ES Final Result Performing Organization Address [facility] Co de Phone Number MANUALLY TRANSCRIBED RESULTS * COLOGUARD (08/28/2021) us Itzel White INSTANT POWDER SUPERVISOR-ADULT AND PEDIATRIC NEUROLOGIST HEALTH MAINTENANCE Final Result Performing Organization Address [facility] Co de Phone Number MANUALLY TRANSCRIBED RESULTS from Last 3 Months or Most Recently Relevant to Health Maintenance Insurance [employer] Care Teams Biomed Tech Relationship Specialty Start Date End Date Shahbaz Monk DO [address] [facility] [place], [place] [id number] PCP - General Family Medicine 02/11/22
--- OUTSIDE RECORDS SUMMARY | 2024-11-12 09:20 | XMS_ITS | Encounter Summary ---
Author Organization [facility] [employer] Sys tem Address [id number] [address] [place] [address] Care Team Providers Care Cnc Operator Programmer Name Role Phone Shahbaz Monk Primary Care Provider + [phone] Encounter Details Date Type Department Care Team (Late st Contact Info) Description 12/03/2022 Documentation [facility] - Family Medicine [address] [place] [address] Kaila Beck CMA Social History Tobacco Use Types Packs/Day Years [...] Medicine [address] [place] [address] Shahbaz Monk DO [address], [facility] [place] [address] documented as of this encounter Visit Diagnoses Not on filedocumented in this encounter Additional Health Concerns Assessment Noted Time PHQ-9 Depression Total Score: 0 12/04/19 23 11:17 AM EDT documented as of this encounter Care Teams Cnc Operator Programmer Relationship Specialty Start Date End Date Shahbaz Monk DO [address] [facility] [address] PCP - General Family Medicine 02/11/22 documented as of this encounter
--- OUTSIDE RECORDS SUMMARY | 2024-11-12 09:20 | XMS_ITS | Encounter Summary ---
Author Organization [facility] [address] Sys tem Address [id number] [address] [place] [address] Care Team Providers Care Lead Press Operator Name Role Phone Shahbaz Monk Primary Care Provider + [phone] Encounter Details Date Type Department Care Team (Late st Contact Info) Description 02/27/2024 Orders Only [facility] - Family Medicine [address] [place] [address] Ref Prov, [place] [address] Social History Tobacco Use Types Packs/Day Years Used Date Smoking Tobacco: Former Cigarettes 0.5 33.2 1 990 - 09/11/2022 Smokeless Tobacco: Never Alcohol Use Standard Drinks/Week Comments Not Currently 0 (1 standard drink = 0.6 oz pure alcohol) Occasional 6 pack once a month [facility] Utilities Answer Date Recorded In the past 12 months has [facility] electric, gas, oil, or water company [...] often do you attend chur ch or mandaeism services? Never 03/07/2023 Do you [...] Answer Date Recorded Total Score 0 01/02/2024 [facility] of Occupat ional Health - [...] Recorded Do you need help finding a [facility] career center and/or a training program? [...] - Family Medicine [address] [place] [address] Shahbaz Monk DO [address] [facility] [place] [address] documented as of this encounter Procedures Procedure Name Priority Date/Time Associated Diagnosis Comments URINE CULTURE Routine 02/23/2024 5:24 PM EDT documented in this encounter Results * Urine Culture (02/23/2024 5:24 PM EDT) Urine us Not In System Ref Prov MICROBIOLOGY - GENERAL OR DERABLES Final Result MANUALLY TRANSCRIBED RESULTS documented in this encounter Visit Diagnoses Not on filedocumented in this encounter Additional Health Concerns Assessment Noted Time PHQ-9 Depression Total Score: 0 01/02/20 24 4:09 PM EDT documented as of this encounter Care Teams Lead Press Operator Relationship Specialty Start Date End Date Shahbaz Monk DO [address] [facility] [place] [address] PCP - General Family Medicine 02/11/22 documented as of this encounter
--- OUTSIDE RECORDS SUMMARY | 2024-11-12 09:20 | XMS_ITS | Encounter Summary ---
Author Organization [facility] [employer] [facility] tem Address [id number] [address] [place] [address] Care Team Providers Care Stocking Inspector Name Role Phone Shahbaz Monk DO Primary Care Provider + [phone] Encounter Details Date Type Department Care Team (Late st Contact Info) Description 08/09/2024 [facility] [address] [place] [address] Shahbaz Monk DO [address], [facility] [place] [address] Social History Tobacco Use Types Packs/Day Years Used Date Smoking Tobacco: Former Cigarettes 0.5 33.2 1 990 - 09/11/2022 Smokeless Tobacco: Never Alcohol Use Standard Drinks/Week Comments Not Currently 0 (1 standard drink = 0.6 oz pure alcohol) Occasional 6 pack once a month [facility] Utilities Answer Date Recorded In the past 12 months has [employer], or water [employer] threatened to shut off services in your [...] often do you attend chur ch or quaker services? Never 03/07/2023 Do you belong to any clubs o r organizations such as caodaism groups, unions, fraternal or athletic groups, or [...] Answer Date Recorded Total Score 0 05/28/2024 [facility] of Occupat ional [facility] - Occupational Stress Questionnaire Answer Date Recorded [...] Recorded Do you need help finding a l ocal career center and/or a training program? No [...] * Telephone Encounter - Johanna Darden - 08/09/2024 3:35 PM EST NEEDS A REFERRAL TO [facility] PAIN MANA[facility]EMENT documented in this encounter Plan of Treatment Upcoming Encounters Date Type Department Care Team (Late st Contact Info) Description 01/14/2025 4:30 PM EDT Office Visit [facility] - Family Medicine [address] [place] [address] Shahbaz Monk DO [address] [facility] [place] [address] documented as of this encounter Visit Diagnoses Not on filedocumented in this encounter Additional Health Concerns Assessment Noted Time PHQ-9 Depression Total Score: 0 05/28/20 24 2:30 PM EST documented as of this encounter Care Teams Stocking Inspector Relationship Specialty Start Date End Date Shahbaz Monk DO [address] [facility] [place] [address] PCP - General Family Medicine 02/11/22 documented as of this encounter
--- OUTSIDE RECORDS SUMMARY | 2024-11-12 09:20 | XMS_ITS | Encounter Summary ---
Author Organization [facility]-[id number] [address] [place] [address] Care Team Providers Care Asbestos Shingle Inspector Name Role Phone Shahbaz Monk DO Primary Care Provider [phone] Encounter Details Date Type Department Care Team ([facility] st Contact Info) Description 05/17/2022 Telephone [facility] - Family Medicine [address] [place] [address] Roslyn Day MA Social History Tobacco Use Types Packs/Day Years [...] have Coronavirus / COVID-19? No / Unsure 05/19/2022 2:03 PM EST documented as of this encounter Miscellaneous Notes * Telephone Encounter - Roslyn Day MA - 05/17/2022 10:59 AM EST fyi-adipex is denied. * Telephone Encounter - Shahbaz Monk DO - 05/17/2022 10:59 AM EST Ok-let him know he will have to pay harris * Telephone Encounter - Roslyn Day MA - 05/17/2022 10:59 AM EST Pt informed documented in this encounter Plan of Treatment Upcoming Encounters Date Type Department Care Team (Late st Contact Info) Description 01/14/2025 4:30 PM EDT Office Visit [facility] - Family Medicine [address] [place] [address] Shahbaz Monk DO [address] [facility] [place] [address] documented as of this encounter Visit Diagnoses Not on filedocumented in this encounter Additional Health Concerns Assessment Noted Time PHQ-9 Depression Total Score: 2 05/03/20 22 3:45 PM EST documented as of this encounter Care Teams Asbestos Shingle Inspector Relationship Specialty Start Date End Date Shahbaz Monk DO [address] [facility] [place] [address] PCP - General Family Medicine 02/11/22 documented as of this encounter
--- OUTSIDE RECORDS SUMMARY | 2024-11-12 09:20 | XMS_ITS | Encounter Summary ---
Author Organization [facility] tem Address [id number] [address] [place] [address] Care Team Providers Care Smoking Tobacco Packer Hand Name Role Phone Shahbaz Monk DO Primary Care Provider + [phone] Encounter Details Date Type Department Care Team (Late st Contact Info) Description 08/09/2024 Orders Only [facility] - Family Medicine [address] [place] [address] Shahbaz Monk DO [address], [facility] [place] [address] Social History Tobacco Use Types Packs/Day Years Used Date Smoking Tobacco: Former Cigarettes 0.5 33.2 1 990 - 09/11/2022 Smokeless Tobacco: Never Alcohol Use Standard Drinks/Week Comments Not Currently 0 (1 standard drink = 0.6 oz pure alcohol) Occasional 6 pack once a month [facility] Utilities Answer Date Recorded In the past 12 months has [employer], or water [employer] threatened to shut off services in your [...] often do you attend chur ch or evangelical services? Never 03/07/2023 Do you belong to any clubs o r organizations such as gnosticist groups, unions, fraternal or athletic groups, or [...] Answer Date Recorded Total Score 0 05/28/2024 [facility] of Occupat ional Health - Occupational [...] Recorded Do you need help finding a [facility] career center and/or a training program? [...] - Family Medicine [address] [place] [address] Shahbaz Monk DO [address] [facility] [place] [address] documented as of this encounter Visit Diagnoses Not on filedocumented in this encounter Additional Health Concerns Assessment Noted Time PHQ-9 Depression Total Score: 0 05/28/20 24 2:30 PM EST documented as of this encounter Care Teams Smoking Tobacco Packer Hand Relationship Specialty Start Date End Date Shahbaz Monk DO [address] [facility] [place] [address] PCP - General Family Medicine 02/11/22 documented as of this encounter
--- OUTSIDE RECORDS SUMMARY | 2024-11-12 09:20 | XMS_ITS | Encounter Summary ---
Author Organization [facility] Address [id number] [address] [place] [address] Care Team Providers Care Staffing Executive Name Role Phone Shahbaz Monk DO Primary Care Provider + [phone] Reason for Visit * Reason Comments Med Refill Encounter Details Date Type Department Care Team ([facility] Contact Info) Description 10/27/2022 Refill [facility] - Family Medicine [address] [place] [id number] Shahbaz Monk DO [address], [facility] [place] [address] Essential (primary) hypertension; Spondylolisthesis, lumbar region Social History Tobacco Use Types Packs/Day Years [...] PHQ-2 Answer Date Recorded Total Score 0 08/16/2022 PRAPARE - Transportation Answer Date Re corded [...] - Family Medicine [address] [place] [address] Shahbaz Monk DO [address] [place] [place] [address] documented as of this encounter Visit Diagnoses Diagnosis Essential (primary) hypertension Unspecified essential hypertension Spondylolisthesis, lumbar region documented in this encounter Additional Health Concerns Assessment Noted Time PHQ-9 Depression Total Score: 0 08/17/19 23 4:45 PM EST documented as of this encounter Care Teams Staffing Executive Relationship Specialty Start Date End Date Shahbaz Monk DO [address] [facility] [place] [place] [address] PCP - General Family Medicine 02/11/22 documented as of this encounter
[2024-11-12 10:30] VITALS: BP 127/85; PULSE 98; TEMP 36.7; O2SAT 98
[2024-11-12 10:58] VITALS: BP 141/87; PULSE 83; O2SAT 97
[2024-11-12] MEDS: BUPIVACAINE HCL 0.25% PF 25 MG/10 ML VIAL 8 ML INJ (10:59)
[2024-11-12] MEDS: LIDOCAINE HCL 2% 400 MG/20 ML MDV INJ (10:59)
[2024-11-12 11:00] VITALS: BP 140/85; PULSE 82; O2SAT 97
--- NOTE | 2024-11-12 11:03 | W.PM.PROCNOT ---
Date of procedure: 11/12/24 Pre-op diagnosis: Pain due to lumbar spondylosis without myelopathy Post-op diagnosis: same as pre-op Procedure: Procedure: Bilateral L4-5, L5-S1 medial branch block Medications: Bupivacaine 0.25% 6cc The patient was seen and examined in the preoperative holding area.? An informed consent was obtained and placed on the chart.? The patient was brought to the medical procedure unit and placed in the prone position.? A timeout was completed verifying correct patient, procedure site, positioning, plan, and special equipment.? Using aseptic technique, the needle was placed at left L4. Under direct fluoroscopic visualization a Quincke-tipped spinal needle was advanced to the junction of the superior articulating process with the transverse process at the designated medial branch segment.? Preceded by negative aspiration, the above-mentioned injectate was placed in 1 mL aliquots.? The procedure was repeated at left L5, S1.? The needle was removed and insertion site was covered. The same procedure, at the same levels, was completed on the right side. The patient was taken to the postprocedural recovery area and monitored for an appropriate length of time before found suitable for discharge in the company of a responsible adult. Anesthesia: Local Surgeon: Chrissy Conway Pathology: none sent Condition: stable Disposition: no change
== END 2024-11-12 11:07 | disposition home or self-care (01) ==
LOC: SURGOUT 09:18
PROVIDERS: PCP Family Medicine; Visit Provider Anesthesiology
DX: M54.50 Low back pain, unspecified (principal); M47.816 Spondylosis without myelopathy or radiculopathy, lumbar region; E11.8 Type 2 diabetes mellitus with unspecified complications; Z79.85 Long-term (current) use of injectable non-insulin antidiabetic drugs
CPT/HCPCS: 64493; 64494; J0665

== ENCOUNTER 2024-11-15 15:07 | Outpatient (OUT) | payer OTHER, SELFPAY ==
--- NOTE | 2024-11-15 15:45 | PM.CN ---
Consult Note: HPI Data of Consult Requesting Physician: Evelyn Landa NP Primary Care Provider: OSMAR MANCINI Consult Narrative Reason for consult: low back pain Narrative: 49yom who presents for evaluation. longstanding low back pain. previously underwent injection therapies. uses pain meds as needed, with limited benefit. has engaged in >6 weeks of provider directed home exercises, without benefit. denies adverse med side effects. recently underwent lumbar MRI which is consistent with multilevel disc bulge and spondylotic changes. pain today 7-8/10 increasing to 9/10 at times. recently underwent bilateral L4/5 L5/S1 facet medial branch block with 80% improvement while anesthetized, preop pain up to 9/10 post op pain 1/10. cc:: CC: Evelyn Landa NP Review of Systems ROS Status of ROS 10 or more systems reviewed and unremarkable except as noted in history and below Musculoskeletal Reports: back pain and extremity pain PFSH PFSH Medical History GERD (gastroesophageal reflux disease) ?K21.9 - Gastro-esophageal reflux disease without esophagitis (ICD-10) OAB (overactive bladder) ?N32.81 - Overactive bladder (ICD-10) Hyperlipidemia ?E78.5 - Hyperlipidemia, unspecified (ICD-10) Prediabetes ?R73.03 - Prediabetes (ICD-10) HTN (hypertension) ?I10 - Essential (primary) hypertension (ICD-10) Cholelithiasis ?K80.20 - Calculus of gallbladder without cholecystitis without obstruction (ICD-10) Degenerative disc disease, lumbar ?M51.36 - Other intervertebral disc degeneration, lumbar region (ICD-10) Surgical History History of hip replacement ?Z96.649 - Presence of unspecified artificial hip joint (ICD-10) Family History Father Family history of CHF (congestive heart failure) Family history of COPD (chronic obstructive pulmonary disease) Family history of hypertension Family history of stroke Grandfather Family history of cancer Family history of hypertension Grandfather Family history of cancer Brother Family history of diabetes mellitus Family history of hypertension Social History Within the past year, how often did you have a drink containing alcohol: 2-4 times a month Within the past year, how many standard drinks containing alcohol did you have on a typical day: 1 or 2 Within the past year, how often did you have six or more drinks on one occasion: never Total score: 0 Score interpretation: A score less than 4 is consistent with normal alcohol consumption. Smoking status: Current every day smoker Do you use any of these nicotine containing products: vaping products Non-prescribed substance use: denies use Previous occupational history: [employer] Highest level of school completed/degree received: Associate degree: occupational, technical, vocational program Little interest or pleasure in doing things: not at all Feeling down, depressed, or hopeless: not at all Feel stressed/tense/nervous/anxious/difficulty sleeping: not at all Meds Home Medications and Allergies Home Medications ?Medication ?Instructions ?Recorded ?Confirmed ?Type atorvastatin 20 mg tablet 20 mg PO DAILY 08/22/23 11/12/24 History fenofibrate 160 mg tablet 160 mg PO DAILY 08/22/23 11/12/24 History metoprolol succinate 50 mg 50 mg PO DAILY 08/22/23 11/12/24 History tablet,extended release 24 hr Held on 08/24/23. Instructions: Until follow up with PCP to discuss omeprazole 20 mg capsule,delayed 20 mg PO DAILY 08/22/23 11/12/24 History release oxybutynin chloride 5 mg tablet 5 mg PO DAILY 08/22/23 11/12/24 History magnesium oxide 400 mg (241.3 mg 400 mg PO DAILY 08/20/24 11/12/24 History magnesium) tablet semaglutide 2 mg/dose (8 mg/3 mL) 2 mg subcut QWEEK 08/20/24 11/12/24 History subcutaneous pen injector tamsulosin 0.4 mg capsule 0.4 mg PO Q24H 08/20/24 11/12/24 History tizanidine 4 mg tablet 4 mg PO Q12H PRN muscle spasticity 08/20/24 11/12/24 History meloxicam 7.5 mg tablet mg 09/17/24 History hydrocodone 5 mg-acetaminophen 325 1 tab PO DAILY PRN pain #7 tabs 10/24/24 11/12/24 Rx mg tablet Allergies Allergy/AdvReac Type Severity Reaction Status Date / Time No Known Drug Allergies Allergy Verified 11/12/24 10:28 Exam Constitutional Documenting provider has reviewed patient's vital signs: yes Common normals: no apparent distress, oriented x3, healthy appearing, alert and well nourished General appearance: cooperative HENLA Common normals: normocephalic, hearing grossly normal bilaterally and moist oral mucous membranes Head and scalp: normocephalic Eye Common normals: PERRL Pupil: PERRL Neck & C-Spine Common normals: full ROM General: normal visual inspection Chest Common normals: inspection of chest normal Respiratory Common normals: normal respiratory effort, no retractions and no use of accessory muscles Back & Pelvis Lumbar spine/lower back: pain with ROM, lumbar spinal tenderness Lumbar spinal tenderness location: L3, L4 and L5 and straight leg raise negative bilaterally Sacroiliac joints: SI joints normal Other: bilateral negative elizabeth(patricks), gaenslens, thigh thrust, compression test strength 5/5 in BLE sensation intact BLE intermittent cramping to BLE with standing/walking/lying flat Extremity Common normals: normal to inspection and full ROM Neuro Common normals: oriented x3 Sensorium/orientation: alert Psych Common normals: mental status grossly normal, thought process normal, cooperative, affect normal, speech normal and activity/motor behavior normal Speech: normal speech Thought process: normal thought process Assessment and Plan Assessment and Plan (1) Lumbar spondylosis: Assessment and Plan: The patient has had over 3 months of moderate to severe low back pain with functional impairment and inadequate response to conservative care including NSAIDS (unless there are contraindication such as concurrent blood thinners), multiple oral or topical pain medications, and home exercise program/physical therapy.? Patient has completed >6 weeks of guided home exercise program and/or formal physical therapy program without relief of their symptoms.? The Oswestry Disability Index was completed, and the patient scored a 40%.? The patient noted the following:?? moderate to severe pain impacting ADLs, sitting, standing, sleep, social life, travel We discussed the risks and benefits of the procedure with the patient, and we are NOT planning on using sedation as outlined in the guidelines from Medicare unless there is a documented reason that sedation would be strongly recommended.?? ?The procedure will be completed with fluoroscopic guidance.? (2) Lumbar stenosis with neurogenic claudication: Assessment and Plan: negative radiculopathy, mild NC symptoms intermittently (3) Sacroiliitis: Assessment and Plan: significant improvement on exam as noted above (4) Encounter for medication monitoring: Plan proceed with bilateral L4-5 L5-S1 MBB #2 working towards RFA for axial facet mediated low back pain continue current medications consider scs trial for correction improvement f/u after injection
== END 2024-11-15 15:08 | disposition home or self-care (01) ==
LOC: PM 15:07
PROVIDERS: PCP Family Medicine; Visit Provider Nurse Practitioner
DX: M47.816 Spondylosis without myelopathy or radiculopathy, lumbar region (principal); M48.062 Spinal stenosis, lumbar region with neurogenic claudication; M46.1 Sacroiliitis, not elsewhere classified; Z51.81 Encounter for therapeutic drug level monitoring
CPT/HCPCS: G0463

== ENCOUNTER 2024-11-26 10:57 | Day surgery (SDC) | payer OTHER, SELFPAY ==
[2024-11-26 11:23] VITALS: BP 135/94; PULSE 119; TEMP 36.4; O2SAT 96
[2024-11-26 12:00] VITALS: BP 134/78; PULSE 104; PULSE 106; O2SAT 97; O2SAT 98
[2024-11-26] MEDS: BUPIVACAINE HCL 0.25% PF 25 MG/10 ML VIAL 8 ML INJ (12:01)
[2024-11-26 12:02] VITALS: BP 130/73
[2024-11-26] MEDS: LIDOCAINE HCL 2% 400 MG/20 ML MDV INJ (12:02)
--- NOTE | 2024-11-26 12:05 | W.PM.PROCNOT ---
Date of procedure: 11/26/24 Pre-op diagnosis: Pain due to lumbar spondylosis without myelopathy Post-op diagnosis: same as pre-op Procedure: Procedure: Bilateral L4-5, L5-S1 medial branch block Medications: Bupivacaine 0.25% 6cc The patient was seen and examined in the preoperative holding area.? An informed consent was obtained and placed on the chart.? The patient was brought to the medical procedure unit and placed in the prone position.? A timeout was completed verifying correct patient, procedure site, positioning, plan, and special equipment.? Using aseptic technique, the needle was placed at left L4. Under direct fluoroscopic visualization a Quincke-tipped spinal needle was advanced to the junction of the superior articulating process with the transverse process at the designated medial branch segment.? Preceded by negative aspiration, the above-mentioned injectate was placed in 1 mL aliquots.? The procedure was repeated at left L5, S1.? The needle was removed and insertion site was covered. The same procedure, at the same levels, was completed on the right side. The patient was taken to the postprocedural recovery area and monitored for an appropriate length of time before found suitable for discharge in the company of a responsible adult.? Anesthesia: Local Surgeon: Chrissy Conway Pathology: none sent Condition: stable Disposition: no change
== END 2024-11-26 12:08 | disposition home or self-care (01) ==
LOC: SURGOUT 10:58
PROVIDERS: PCP Family Medicine; Visit Provider Anesthesiology
DX: M47.816 Spondylosis without myelopathy or radiculopathy, lumbar region (principal); M54.50 Low back pain, unspecified
CPT/HCPCS: 64493; 64494; J0665

== ENCOUNTER 2024-12-05 09:09 | Outpatient (OUT) | payer OTHER, SELFPAY ==
--- OUTSIDE RECORDS SUMMARY | 2024-12-05 09:11 | XMS_ITS | Clinical Summary ---
Author Organization [facility] Address [address] [place] [address] Phone Care Team Providers Care Emotional Disabilities Teacher Name Role Phone Yandel Garcia DO Primary Care Provider Social History Tobacco Use Types Packs/Day Years Used Date Smoking Tobacco: Never Assessed Sex and Gender Information Value Date Recorded Sex Assigned at Not on file Legal Sex Male 10:39 AM EST Gender Identity Not on file Sexual Orientation Not on file Plan of Treatment Not on file Care Teams Emotional Disabilities Teacher Relationship Specialty Start Date End Date Yadnel Garcia DO [address] [place] [address] PCP - General 10/24/17
--- OUTSIDE RECORDS SUMMARY | 2024-12-05 09:11 | XMS_ITS | Clinical Summary ---
Author Organization [employer] Address [id number] [address] [place] [address] Care Team Providers Care Harvest Worker Fruit Name Role Phone Aleshia Shahbaz Auguste DO Primary Care Provider + [phone] Allergies No known active allergies Medications omeprazole [...] Medicine - Family Medicine [address] [place] [address] Shahbaz Monk DO 09/13/2024 4:15 PM EDT Office Visit [facility] - Family Medicine [address] [place] [address] Shahbaz Monk, Lumbar disc prolapse with compression radiculopathy (Primary Dx); Class 2 severe obesity due to excess calories with serious comorbidity and body mass index (BMI) of 36.0 to 36.9 in adult ([facility]); Essential hypertension; Gastroesophageal reflux disease, unspecified whether esophagitis present 09/13/2024 Travel from Last 3 Months Immunizations Immunization Administration [...] alcohol) Occasional 6 pack once a month [facility] Utilities Answer Date Recorded In the past 12 months has [employer], [employer], oil, or water [employer] threatened to shut off services in your [...] week 03/07/2023 How often do you attend [facility] or restoration services? Never 03/07/2023 Do you belong to any clubs o r organizations such as tenriism groups, unions, fraternal or athletic groups, or [...] Answer Date Recorded Total Score 0 09/13/2024 [facility] [place] of Occupat ional Health - Occupational Stress [...] Recorded Do you need help finding a [facility] career center and/or a training program? [...] Upcoming Encounters Date Type Department Care Team ([facility] st Contact Info) Description 01/14/2025 4:30 PM EDT Office Visit [facility] Medicine - Family Medicine [address] [place] [address] Shahbaz Monk DO [address] [place] [address] Health Maintenance Due Date Last Done Comments [...] Procedure Name Priority Date/Time Associated Diagnosis Comments COLOGUARD Routine 08/28/2021 from Last 3 Months or Most Recently Relevant to Health Maintenance Results * COLOGUARD (08/28/2021) Itzel White APRN-CONFIGURATION MANAGEMENT CONSULTANT HEALTH MAINTENANCE Final Result MANUALLY TRANSCRIBED RESULTS from Last 3 Months or Most Recently Relevant to Health Maintenance Insurance [employer] Care Teams Harvest Worker Fruit Relationship Specialty Start Date End Date Shahbaz Monk DO [address] [facility], [place] [address] PCP - General Family Medicine 02/11/22
--- OUTSIDE RECORDS SUMMARY | 2024-12-05 09:11 | XMS_ITS | Clinical Summary ---
Author Organization [facility] Address [address] [place] [address] Care Team Providers Care Unstacker Name Role Phone Unavailable Primary Care Provider [...]
--- OUTSIDE RECORDS SUMMARY | 2024-12-05 09:11 | XMS_ITS | Encounter Summary ---
Author Organization [facility] [employer] [facility] tem Address [id number] [address] [place] [address] Care Team Providers Care Parcel Contractor Name Role Phone Shahbaz Monk DO Primary Care Provider + [phone] Encounter Details Date Type Department Care Team (Late st Contact Info) Description 08/09/[address] [address] [place] [address] Shahbaz Monk DO [address], [facility] [place] [address] Social History Tobacco Use Types Packs/Day Years Used Date Smoking Tobacco: Former Cigarettes 0.5 33.2 1 990 - 09/11/2022 Smokeless Tobacco: Never Alcohol Use Standard Drinks/Week Comments Not Currently 0 (1 standard drink = 0.6 oz pure alcohol) Occasional 6 pack once a month [facility] Utilities Answer Date Recorded In the past 12 months has [employer], [employer], or water [employer] threatened to shut off services in your [...] often do you attend chur ch or bahai services? Never 03/07/2023 Do you belong to [...] Date Recorded Total Score 0 05/28/2024 [facility] of Occupat ional [facility] - Occupational Stress Questionnaire Answer Date Recorded [...] 3:35 PM EST NEEDS A REFERRAL TO [facility] PAIN [facility] documented in this encounter Plan of Treatment Upcoming Encounters Date Type Department Care Team (Late st Contact Info) Description 01/14/2025 4:30 PM EDT Office Visit [facility] - Family Medicine [address] [place] [address] Shahbaz Monk DO [address] [place] [address] documented as of this encounter Visit Diagnoses Not on filedocumented in this encounter Additional Health Concerns Assessment Noted Time PHQ-9 Depression Total Score: 0 05/28/20 24 2:30 PM EST documented as of this encounter Care Teams Parcel Contractor Relationship Specialty Start Date End Date Shahbaz Monk DO [address] [place] [address] PCP - General Family Medicine 02/11/22 documented as of this encounter
--- OUTSIDE RECORDS SUMMARY | 2024-12-05 09:11 | XMS_ITS | Encounter Summary ---
Author Organization [facility] [employer] tem Address [id number] [address] [place] [address] Care Team Providers Care Visualization Developer Name Role Phone Shahbaz Monk Primary Care Provider + [phone] Encounter Details Date Type Department Care Team (Late st Contact Info) Description 02/27/2024 Orders Only [facility] Medicine - Family Medicine [address] [place] [address] Ref Prov, [place] [address] Social History Tobacco Use Types Packs/Day Years Used Date Smoking Tobacco: Former Cigarettes 0.5 33.2 1 990 - 09/11/2022 Smokeless Tobacco: Never Alcohol Use Standard Drinks/Week Comments Not Currently 0 (1 standard drink = 0.6 oz pure alcohol) Occasional 6 pack once a month [facility] Utilities Answer Date Recorded In the past 12 months has [facility] electric, gas, oil, or water company [...] often do you attend chur ch or restoration services? Never 03/07/2023 Do you belong to any clubs o r organizations such as lutheran groups, unions, fraternal or athletic groups, or [...] Answer Date Recorded Total Score 0 01/02/2024 [facility] of Occupat ional Health - [...] - Family Medicine [address] [place] [address] Shahbaz Monk DO [address] [facility] [address] documented as of this encounter Procedures Procedure [...] documented as of this encounter Care Teams Visualization Developer Relationship Specialty Start Date End Date Shahbaz Monk DO [address] [facility] [place] [address] PCP - General Family Medicine 02/11/22 documented as of this encounter
--- OUTSIDE RECORDS SUMMARY | 2024-12-05 09:11 | XMS_ITS | Encounter Summary ---
Author Organization [facility] [place] [facility] [employer] tem Address [id number] [address] [place] [address] Care Team Providers Care Awning Finisher Name Role Phone Shahbaz Monk Primary Care Provider + [phone] Encounter Details Date Type Department Care Team (Late st Contact Info) Description 08/22/2023 Orders Only [facility] - Family Medicine [address] [place] [address] External, Scanning Provider Social History Tobacco Use Types Packs/Day Years Used Date Smoking Tobacco: Former Cigarettes 0.5 33.2 1 990 - 09/11/2022 Smokeless Tobacco: Never Alcohol Use Standard Drinks/Week Comments Yes 0 (1 standard drink = 0.6 oz pur e alcohol) Occasional 6 pack once a month [facility] Utilities Answer Date Recorded In the past [...] often do you attend chur ch or orthodox services? Never 03/07/2023 Do you belong to any clubs o r organizations such as congregation groups, unions, fraternal or athletic groups, or [...] Answer Date Recorded Total Score 0 08/04/2023 [facility] of Occupat ional Health [...] Do you need help finding a [facility] and/or a training program? [...] - Family Medicine [address] [place] [address] Shahbaz Monk DO [address], [place] [address] documented as of this encounter Procedures Procedure [...] documented as of this encounter Care Teams Awning Finisher Relationship Specialty Start Date End Date Shahbaz Monk DO [address], [place] [address] PCP - General Family Medicine 02/11/22 documented as of this encounter
--- OUTSIDE RECORDS SUMMARY | 2024-12-05 09:11 | XMS_ITS | Encounter Summary ---
Author Organization [employer] [facility] tem Address [id number] [address] [place] [address] Care Team Providers Care Instrument Technician Helper Name Role Phone Shahbaz Monk DO Primary Care Provider + [phone] Encounter Details Date Type Department Care Team ([facility] Contact Info) Description 02/25/2022 Orders Only [facility] Medicine - Family Medicine [address] [place] [address] Shahbaz Monk DO [address], [place] [address] Social History Tobacco Use Types Packs/Day Years [...] Upcoming Encounters Date Type Department Care Team ([facility] Contact Info) Description 01/14/2025 4:30 PM EDT Office Visit [facility] - Family Medicine [address] [place] [address] Shahbaz Monk DO [address] [facility] [place] [address] documented as of this encounter Visit Diagnoses Not on filedocumented in this encounter Care Teams Instrument Technician Helper Relationship Specialty Start Date End Date Shahbaz Monk DO [address] [facility] [place] [address] PCP - General Family Medicine 02/11/22 documented as of this encounter
--- OUTSIDE RECORDS SUMMARY | 2024-12-05 09:11 | XMS_ITS | Encounter Summary ---
Author Organization [facility] tem Address [id number] [address] [place] [address] Care Team Providers Care Commodity Supervisor Name Role Phone Shahbaz Monk DO Primary Care Provider + [phone] Encounter Details Date Type Department Care Team (Late st Contact Info) Description 08/09/2024 Orders Only [facility] - Family Medicine [address] [place] [address] Shahbaz Mnok DO [address], [place] [address] Social History Tobacco Use Types Packs/Day Years Used Date Smoking Tobacco: Former Cigarettes 0.5 33.2 1 990 - 09/11/2022 Smokeless Tobacco: Never Alcohol Use Standard Drinks/Week Comments Not Currently 0 (1 standard drink = 0.6 oz pure alcohol) Occasional 6 pack once a month [facility] Utilities Answer Date Recorded In the past 12 months has [employer], [employer], or water [employer] threatened to shut off services in your [...] any clubs o r organizations such as spiritism groups, unions, fraternal or athletic groups, or [...] Answer Date Recorded Total Score 0 05/28/2024 [facility] of Occupat ional Health [...] Recorded Do you need help finding a [facility] career center and/or a training program? [...] - Family Medicine [address] [place] [address] Shahbaz Monk DO [address] [facility] [place] [address] documented as of this encounter Visit Diagnoses Not on filedocumented in this encounter Additional Health Concerns Assessment Noted Time PHQ-9 Depression Total Score: 0 05/28/20 24 2:30 PM EST documented as of this encounter Care Teams Commodity Supervisor Relationship Specialty Start Date End Date Shahbaz Monk DO [address] [facility] [place] [address] PCP - General Family Medicine 02/11/22 documented as of this encounter
--- OUTSIDE RECORDS SUMMARY | 2024-12-05 09:11 | XMS_ITS | Encounter Summary ---
Author Organization [facility] [employer] tem Address [id number] [address] [place] [address] Care Team Providers Care Director Of Financial Aid Name Role Phone NatyShahbaz quintero Molina PERKINS Primary Care Provider + [phone] Encounter Details Date Type Department Care Team (Late st Contact Info) Description 02/24/2024 Orders Only [facility] - Family Medicine [address] [place] [address] Kath Irvin CMA Right ureteral stone Social History Tobacco Use Types Packs/Day Years Used Date Smoking Tobacco: Former Cigarettes 0.5 33.2 1 990 - 09/11/2022 Smokeless Tobacco: Never Alcohol Use Standard Drinks/Week Comments Not Currently 0 (1 standard drink = 0.6 oz pure alcohol) Occasional 6 pack once a month [facility] Utilities Answer Date Recorded In the [...] often do you attend chur ch or roman catholic services? Never 03/07/2023 Do you belong to any clubs o r organizations such as rastafarian groups, unions, fraternal or athletic groups, or [...] Answer Date Recorded Total Score 0 01/02/2024 [facility] [place] of Occupat ional Health - Occupational Stress [...] Recorded Do you need help finding a [facility] career center and/or a training program? [...] - Family Medicine [address] [place] [address] Shahbaz Monk DO [address], [place] [address] documented as of this encounter Procedures Procedure Name Priority Date/Time Associated Diagnosis Comments AMB REFERRAL TO UROLOGY Routine 02/24/2024 8:42 AM EDT Right ureteral stone URINE CULTURE Routine 02/23/2024 2:01 PM EDT URINALYSIS Routine 02/23/2024 1:40 PM EDT documented in this encounter Results * Ambulatory referral to Urology (02/24/2024 8:42 AM EDT) us Itezl White APRN-CARDIOLOGY PHYSICIAN OUTPATIENT REFERRAL [place] [facility]Z Final Result Performing Organization Address [facility] Co de Phone Number MANUALLY TRANSCRIBED RESULTS * Urine Culture (02/23/2024 2:01 PM EDT) Urine us Not In System Ref Prov MICROBIOLOGY - GENERAL OR DERABLES Final Result Performing Organization Address [facility] Co de Phone Number MANUALLY TRANSCRIBED [...] documented as of this encounter Care Teams Director Of Financial Aid Relationship Specialty Start Date End Date Shahbaz Monk DO [address], [place] [address] PCP - General Family Medicine 02/11/22 documented as of this encounter
--- OUTSIDE RECORDS SUMMARY | 2024-12-05 09:11 | XMS_ITS | Encounter Summary ---
Author Organization [facility] [employer] [facility] tem Address [id number] [address] [place] [address] Care Team Providers Care Pulverizing And Sifting Operator Name Role Phone Shahbaz Monk Primary Care Provider + [phone] Encounter Details Date Type Department Care Team (Late st Contact Info) Description 08/31/2024 Orders Only [facility] - Family Medicine [address] [place] [address] Ref Prov, [place] [address] Social History Tobacco Use Types Packs/Day Years Used Date Smoking Tobacco: Former Cigarettes 0.5 33.2 1 990 - 09/11/2022 Smokeless Tobacco: Never Alcohol Use Standard Drinks/Week Comments Not Currently 0 (1 standard drink = 0.6 oz pure alcohol) Occasional 6 pack once a month [facility] Utilities Answer Date Recorded In the past 12 months has [facility] electric, gas, oil, or water company [...] often do you attend chur ch or buddhism services? Never 03/07/2023 Do you belong to any clubs o r organizations such as restoration groups, unions, fraternal or athletic groups, or [...] Date Recorded Total Score 0 05/28/2024 [facility] of Occupat ional Health - Occupational [...] Recorded Do you need help finding a [facility] career center and/or a training [...] - Family Medicine [address] [place] [address] Shahbaz Monk DO [address] [facility] [place] [place] [address] documented as of this encounter Procedures Procedure [...] documented as of this encounter Care Teams Pulverizing And Sifting Operator Relationship Specialty Start Date End Date Shahbaz Monk DO [address] [facility] [place] [address] PCP - General Family Medicine 02/11/22 documented as of this encounter
--- OUTSIDE RECORDS SUMMARY | 2024-12-05 09:11 | XMS_ITS | Encounter Summary ---
Author Organization [facility] [employer] tem Address [id number] [address] [place] [address] Care Team Providers Care Sprinkler Repair Technician Name Role Phone Shahbaz Monk Primary Care Provider + [phone] Encounter Details Date Type Department Care Team (Late st Contact Info) Description 03/06/2024 Orders Only [facility] - Family Medicine [address] [place] [address] Ref Prov, [place] [address] Social History Tobacco Use Types Packs/Day Years Used Date Smoking Tobacco: Former Cigarettes 0.5 33.2 1 990 - 09/11/2022 Smokeless Tobacco: Never Alcohol Use Standard Drinks/Week Comments Not Currently 0 (1 standard drink = 0.6 oz pure alcohol) Occasional 6 pack once a month [facility] Utilities Answer Date Recorded In the past 12 months has [facility] electric, gas, oil, or water company [...] often do you attend chur ch or hinduism services? Never 03/07/2023 Do you belong to any clubs o r organizations such as hinduism groups, unions, fraternal or athletic groups, or [...] Answer Date Recorded Total Score 0 01/02/2024 [facility] of Occupat ional Health [...] Recorded Do you need help finding a [facility] career center and/or a training [...] - Family Medicine [address] [place] [address] Shahbaz Monk DO [address] [facility] [address] documented as of this encounter Procedures Procedure [...] documented as of this encounter Care Teams Sprinkler Repair Technician Relationship Specialty Start Date End Date Shahbaz Monk DO [address] [facility] [place] [address] PCP - General Family Medicine 02/11/22 documented as of this encounter
--- OUTSIDE RECORDS SUMMARY | 2024-12-05 09:11 | XMS_ITS | Encounter Summary ---
Author Organization [facility] [employer] Address [id number] [place] [address] Care Team Providers Care Sugar Laboratory Assistant Name Role Phone Shahbaz Monk Primary Care Provider + [phone] Encounter Details Date Type Department Care Team (Late st Contact Info) Description 01/10/2024 Orders Only [facility] - Family Medicine [address] [place] [address] Ref Prov, [place] [address] Social History Tobacco Use Types Packs/Day Years Used Date Smoking Tobacco: Former Cigarettes 0.5 33.2 1 990 - 09/11/2022 Smokeless Tobacco: Never Alcohol Use Standard Drinks/Week Comments Not Currently 0 (1 standard drink = 0.6 oz pure alcohol) Occasional 6 pack once a month [facility] Utilities Answer Date Recorded In the past 12 months has [facility] electric, gas, oil, or water company [...] often do you attend chur ch or mormonism services? Never 03/07/2023 Do you belong to any clubs o r organizations such as mormonism groups, unions, fraternal or athletic groups, or [...] Date Recorded Total Score 0 01/02/2024 [facility] of Occupat ional [...] - Family Medicine [address] [place] [address] Shahbaz Monk DO [address] [facility] [address] documented as of this encounter Procedures Procedure [...] documented as of this encounter Care Teams Sugar Laboratory Assistant Relationship Specialty Start Date End Date Shahbaz Monk DO [address], [facility] [address] PCP - General Family Medicine 02/11/22 documented as of this encounter
--- OUTSIDE RECORDS SUMMARY | 2024-12-05 09:11 | XMS_ITS | Encounter Summary ---
[facility] Organization [facility] [employer] Sys tem Address [facility] [id number] [address] [place] [address] Care Team Providers Care Mounting Inspector Name Role Phone SandhyaShahbaz gillespie Primary Care Provider + [phone] Encounter Details Date Type Department Care Team (Late st Contact Info) Description 08/21/2024 Orders Only [facility] Internal Medicine - Family Medicine [address] [place] [phone] Kath Irvin CMA Lumbar disc prolapse with compression radiculopathy Social History Tobacco Use Types Packs/Day Years Used Date Smoking Tobacco: Former Cigarettes 0.5 33.2 1 990 - 09/11/2022 Smokeless Tobacco: Never Alcohol Use Standard Drinks/Week Comments Not Currently 0 (1 standard drink = 0.6 oz pure alcohol) Occasional 6 pack once a month [facility] Utilities Answer Date Recorded In the past 12 months has [facility] electric, gas, oil, or water company [...] any clubs o r organizations such as sikh groups, unions, fraternal or athletic groups, or [...] Answer Date Recorded Total Score 0 05/28/2024 [facility] of Occupat ional Health - Occupational Stress [...] Recorded Do you need help finding a [facility] career center and/or a training program? [...] Medicine - Family Medicine [address] [place] [address] Shahbaz Monk DO [address], [place] [address] documented as of this encounter Procedures Procedure [...] documented as of this encounter Care Teams Mounting Inspector Relationship Specialty Start Date End Date Shahbaz Monk DO [address], [place] [address] PCP - General Family Medicine 02/11/22 documented as of this encounter
--- OUTSIDE RECORDS SUMMARY | 2024-12-05 09:11 | XMS_ITS | Encounter Summary ---
Author Organization [facility] Sys tem Address [facility] [place]-[id number] [address] [place] [address] Care Team Providers Care Second Hand Name Role Phone Shahbaz Monk DO Primary Care Provider + [phone] Encounter Details Date Type Department Care Team (Late st Contact Info) Description 02/28/2023 Orders Only [facility] Internal Medicine - Family Medicine [address] [place] [phone] Shahbaz Monk DO [address] [facility], [facility] [place] [address] Social History Tobacco Use Types Packs/Day Years Used Date Smoking Tobacco: Every Day Cigarettes 0.5 35.5 Started: 1989 Smokeless Tobacco: Never Alcohol Use [...] - Family Medicine [address] [place] [address] Shahbaz Monk DO [address] [facility] [place] [address] documented as of this encounter Visit Diagnoses Not on filedocumented in this encounter Additional Health Concerns Assessment Noted Time PHQ-9 Depression Total Score: 0 12/04/19 23 11:17 AM EDT documented as of this encounter Care Teams Second Hand Relationship Specialty Start Date End Date Shahbaz Monk DO [address] [facility] [place] [address] PCP - General Family Medicine 02/11/22 documented as of this encounter
--- OUTSIDE RECORDS SUMMARY | 2024-12-05 09:11 | XMS_ITS | Encounter Summary ---
Author Organization [facility] Sys tem Address [facility] [id number] [address] [place] [address] Care Team Providers Care Felt Dyeing Machine Tender Name Role Phone Shahbaz Monk Primary Care Provider + [phone] Encounter Details Date Type Department Care Team (Late st Contact Info) Description 12/07/2022 Orders Only [facility] Internal Medicine - Family Medicine [address] [place] [phone] Itzel White, LEAD BUSINESS SYSTEMS ANALYST-DUST COLLECTOR OPERATOR [address] [place] [address] Social History Tobacco Use Types Packs/Day Years [...] - Family Medicine [address] [place] [address] Shahbaz Monk DO [address], [facility] [place] [address] documented as of this encounter Procedures Procedure Name Priority Date/Time Associated Diagnosis Comments HM COLOGUARD Routine 08/28/2021 documented in this encounter Results * HM COLOGUARD (08/28/2021) Itzel White LEAD BUSINESS SYSTEMS ANALYST-DUST COLLECTOR OPERATOR HEALTH MAINTENANCE Final Result MANUALLY TRANSCRIBED RESULTS documented in this encounter Visit Diagnoses Not on filedocumented in this encounter Additional Health Concerns Assessment Noted Time PHQ-9 Depression Total Score: 0 12/04/19 23 11:17 AM EDT documented as of this encounter Care Teams Felt Dyeing Machine Tender Relationship Specialty Start Date End Date Shahbaz Monk DO [address] [facility], [facility] [place] [address] PCP - General Family Medicine 02/11/22 documented as of this encounter
--- OUTSIDE RECORDS SUMMARY | 2024-12-05 09:11 | XMS_ITS | Encounter Summary ---
Author Organization [employer] s tem Address [facility] [id number] [address] [place] [address] Care Team Providers Care Ship Washer Name Role Phone Shahbaz Monk DO Primary Care Provider + [phone] Reason for Visit * Reason Onset Date Comments Med Refill 06/22/2022 Encounter Details Date Type Department Care Team (Late Contact Info) Description 06/22/2022 Refill [facility] Internal Medicine - Family Medicine [address] [place] [address] Kath Irvin CMA Degeneration of lumbar intervertebral [...] Upcoming Encounters Date Type Department Care Team ([facility] Contact Info) Description 01/14/2025 4:30 PM EDT Office Visit [facility] Medicine - Family Medicine [address] [place] [address] Shahbaz Monk DO [address] [place] [address] documented as of this encounter Visit Diagnoses Diagnosis Degeneration of lumbar intervertebral disc Degeneration of lumbar or lumbosacral intervertebral disc documented in this encounter Additional Health Concerns Assessment Noted Time PHQ-9 Depression Total Score: 2 05/03/20 22 3:45 PM EST documented as of this encounter Care Teams Ship Washer Relationship Specialty Start Date End Date Shahbaz Monk DO [address] [place] [address] PCP - General Family Medicine 02/11/22 documented as of this encounter
--- OUTSIDE RECORDS SUMMARY | 2024-12-05 09:11 | XMS_ITS | Encounter Summary ---
Author Organization [employer] s tem Address [facility] [id number] [address] [place] [address] Care Team Providers Care Arbor Press Operator Name Role Phone Shahbaz Monk DO Primary Care Provider + [phone] Reason for Visit * Reason Comments Med Refill Encounter Details Date Type Department Care Team ([facility] Contact Info) Description 08/06/2022 Refill [facility] Medicine - Family Medicine [address] [place] [address] Shahbaz Monk DO [address] [place] [address] Essential (primary) hypertension Social History Tobacco Use [...] Upcoming Encounters Date Type Department Care Team ([facility] Contact Info) Description 01/14/2025 4:30 PM EDT [facility] Medicine [address] [place] [address] Shahbaz Monk DO [address] [facility] [place] [address] documented as of this encounter Visit Diagnoses Diagnosis Essential (primary) hypertension Unspecified essential hypertension documented in this encounter Additional Health Concerns Assessment Noted Time PHQ-9 Depression Total Score: 2 05/03/20 22 3:45 PM EST documented as of this encounter Care Teams Arbor Press Operator Relationship Specialty Start Date End Date Shahbaz Monk DO [address] [facility] [place] [address] PCP - General Family Medicine 02/11/22 documented as of this encounter
--- OUTSIDE RECORDS SUMMARY | 2024-12-05 09:11 | XMS_ITS | Encounter Summary ---
Author Organization [facility] [employer] Sys tem Address [facility] [id number] [address] [place] [address] Care Team Providers Care Senior Director Finance Name Role Phone Shahbaz Monk Primary Care Provider + [phone] Encounter Details Date Type Department Care Team (Late st Contact Info) Description 08/23/2023 Orders Only [facility] Internal Medicine - Family Medicine [address] [place] [address] External, Scanning Provider Social History Tobacco Use Types Packs/Day Years Used Date Smoking Tobacco: Former Cigarettes 0.5 33.2 1 990 - 09/11/2022 Smokeless Tobacco: Never Alcohol Use Standard Drinks/Week Comments Yes 0 (1 standard drink = 0.6 oz pur e alcohol) Occasional 6 pack once a month [facility] Utilities Answer Date Recorded In the [...] often do you attend chur ch or hindu services? Never 03/07/2023 Do you belong to any clubs o r organizations such as sikhism groups, unions, fraternal or athletic groups, or [...] Answer Date Recorded Total Score 0 08/04/2023 [facility] of Occupat ional Health - Occupational [...] Recorded Do you need help finding a [facility] career [facility] and/or a training program? No [...] Medicine [address] [place] [address] Shahbaz Monk DO [address], [place] [address] documented as of this encounter Procedures Procedure [...] documented as of this encounter Care Teams Senior Director Finance Relationship Specialty Start Date End Date Shahbaz Monk DO [address] [facility], [place] [address] PCP - General Family Medicine 02/11/22 documented as of this encounter
--- OUTSIDE RECORDS SUMMARY | 2024-12-05 09:11 | XMS_ITS | Encounter Summary ---
Author Organization [employer] s tem Address [facility] [id number] [address] [place] [address] Care Team Providers Care Tool Dispatcher Name Role Phone Shahbaz Monk DO Primary Care Provider [phone] Encounter Details Date Type Department Care Team ([facility] Contact Info) Description 03/02/2022 Orders Only [facility] - Family Medicine [address] [place] [address] External, Scanning Provider Social History Tobacco Use [...] Upcoming Encounters Date Type Department Care Team ([facility] Contact Info) Description 01/14/2025 4:30 PM EDT Office Visit [facility] Internal Medicine - Family Medicine [address] [place] [address] Shahbaz Monk DO [address], [place] [address] documented as of this encounter Procedures Procedure [...] BLOOD ORDERABLES Final Result Performing Organization Address City/State/[facility] Co de Phone Number MANUALLY TRANSCRIBED RESULTS documented in this encounter Visit Diagnoses Not on filedocumented in this encounter Care Teams Tool Dispatcher Relationship Specialty Start Date End Date Shahbaz Monk DO [address], [place] [address] PCP - General Family Medicine 02/11/22 documented as of this encounter
--- OUTSIDE RECORDS SUMMARY | 2024-12-05 09:11 | XMS_ITS | Encounter Summary ---
Author Organization [facility] [employer] [facility] Address [facility] [place]-[id number] [address] [place] [address] Care Team Providers Care Clinical Counselor Name Role Phone Shahbaz Monk DO Primary Care Provider + [phone] Encounter Details Date Type Department Care Team ([facility] st Contact Info) Description 05/17/2022 Telephone [facility] Internal Medicine - Family Medicine [address] [place] [address] Roslyn Day MA Social History Tobacco Use [...] Medicine - Family Medicine [address] [place] [address] Shahbaz Monk DO [address] [place] [address] documented as of this encounter Visit Diagnoses Not on filedocumented in this encounter Additional Health Concerns Assessment Noted Time PHQ-9 Depression Total Score: 2 05/03/20 22 3:45 PM EST documented as of this encounter Care Teams Clinical Counselor Relationship Specialty Start Date End Date Shahbaz Monk DO [address] [place] [address] PCP - General Family Medicine 02/11/22 documented as of this encounter
--- OUTSIDE RECORDS SUMMARY | 2024-12-05 09:11 | XMS_ITS | Encounter Summary ---
Author Organization [facility] [employer] Sys tem Address [facility] [id number] [address] [place] [address] Care Team Providers Care Fire Manager Name Role Phone Shahbaz Monk Primary Care Provider + [phone] Encounter Details Date Type Department Care Team (Late st Contact Info) Description 12/03/2022 Documentation [facility] Internal Medicine - Family Medicine [address] [place] [address] Kaila Beck CMA Social History Tobacco Use [...] Medicine [address] [place] [address] Shahbaz Monk DO [address], [facility] [place] [address] documented as of this encounter Visit Diagnoses Not on filedocumented in this encounter Additional Health Concerns Assessment Noted Time PHQ-9 Depression Total Score: 0 12/04/19 23 11:17 AM EDT documented as of this encounter Care Teams Fire Manager Relationship Specialty Start Date End Date Shahbaz Monk DO [address] [facility] [place] [place] [address] PCP - General Family Medicine 02/11/22 documented as of this encounter
--- OUTSIDE RECORDS SUMMARY | 2024-12-05 09:11 | XMS_ITS | Encounter Summary ---
Author Organization [facility] Address [facility] [id number] [address] [place] [address] Care Team Providers Care Paper Goods Machine Set Up Operator Name Role Phone Shahbaz Monk DO Primary Care Provider + [phone] Reason for Visit * Reason Comments Med Refill Encounter Details Date Type Department Care Team ([facility] Contact Info) Description 10/27/2022 Refill [facility] Internal Medicine - Family Medicine [address] [place] [address] Shahbaz Monk DO [address], [facility] [place] [address] Essential (primary) hypertension; Spondylolisthesis, lumbar region Social [...] - Family Medicine [address] [place] [address] Shahbaz Monk DO [address] [facility] [place] [address] documented as of this encounter Visit Diagnoses Diagnosis Essential (primary) hypertension Unspecified essential hypertension Spondylolisthesis, lumbar region documented in this encounter Additional Health Concerns Assessment Noted Time PHQ-9 Depression Total Score: 0 08/17/19 23 4:45 PM EST documented as of this encounter Care Teams Paper Goods Machine Set Up Operator Relationship Specialty Start Date End Date Shahbaz Monk DO [address] [facility] [place] [address] PCP - General Family Medicine 02/11/22 documented as of this encounter
--- OUTSIDE RECORDS SUMMARY | 2024-12-05 09:11 | XMS_ITS | Encounter Summary ---
Author Organization [facility] tem Address [facility] [place]-[id number] [address] [place] [address] Care Team Providers Care Funds Development Director Name Role Phone Shahbaz Monk DO Primary Care Provider + [phone] Reason for Visit * Reason Onset Date Comments Med Refill 09/12/2023 Encounter Details Date Type Department Care Team (Late st Contact Info) Description 09/12/2023 Telephone [facility] Internal Medicine - Family Medicine [address] [place] [address] Shahbaz Monk DO [address], [facility] [place] [address] Med Refill Social History Tobacco Use Types Packs/Day Years Used Date Smoking Tobacco: Former Cigarettes 0.5 33.2 1 990 - 09/11/2022 Smokeless Tobacco: Never Alcohol Use Standard Drinks/Week Comments Not Currently 0 (1 standard drink = 0.6 oz pure alcohol) Occasional 6 pack once a month [facility] Utilities Answer Date Recorded In the past 12 months has [employer], gas, oil, or water [employer] threatened to shut off services in your [...] week 03/07/2023 How often do you attend [facility] or congregational services? Never 03/07/2023 Do you belong to [...] Answer Date Recorded Total Score 0 08/30/2023 [facility] of Occupat ional Health - [...] called and needs his semaglutide sent to [facility], he also wanted to know if it was time to go up in dose * Telephone Encounter - Shahabz Monk DO - 09/12/2023 10:16 AM EDT [...] - [place] [address] Shahbaz Monk DO [address], [place] [address] documented as of this encounter Visit Diagnoses Not on filedocumented in this encounter Additional Health Concerns Assessment Noted Time PHQ-9 Depression Total Score: 0 08/30/19 24 3:49 PM EDT documented as of this encounter Care Teams Funds Development Director Relationship Specialty Start Date End Date Shahbaz Monk DO [address], [place] [address] PCP - General Family Medicine 02/11/22 documented as of this encounter
--- NOTE | 2024-12-05 09:31 | PM.CN ---
Consult Note: HPI Data of Consult Requesting Physician: Evelyn Landa NP Primary Care Provider: OSMAR MANCINI Consult Narrative Reason for consult: low back pain Narrative: 49yom who presents for evaluation. longstanding low back pain. previously underwent injection therapies. uses pain meds as needed, with limited benefit. has engaged in >6 weeks of provider directed home exercises, without benefit. denies adverse med side effects. recently underwent lumbar MRI which is consistent with multilevel disc bulge and spondylotic changes. pain today 3/10 increasing to 9/10 at times. recently underwent bilateral L4/5 L5/S1 facet medial branch block #1 and #2 with 80% improvement while anesthetized, preop pain up to 9/10 post op pain 1/10. cc:: CC: Evelyn Landa NP Review of Systems ROS Status of ROS 10 or more systems reviewed and unremarkable except as noted in history and below Musculoskeletal Reports: back pain and extremity pain PFSH PFSH Medical History GERD (gastroesophageal reflux disease) ?K21.9 - Gastro-esophageal reflux disease without esophagitis (ICD-10) OAB (overactive bladder) ?N32.81 - Overactive bladder (ICD-10) Hyperlipidemia ?E78.5 - Hyperlipidemia, unspecified (ICD-10) Prediabetes ?R73.03 - Prediabetes (ICD-10) HTN (hypertension) ?I10 - Essential (primary) hypertension (ICD-10) Cholelithiasis ?K80.20 - Calculus of gallbladder without cholecystitis without obstruction (ICD-10) Degenerative disc disease, lumbar ?M51.36 - Other intervertebral disc degeneration, lumbar region (ICD-10) Surgical History History of hip replacement ?Z96.649 - Presence of unspecified artificial hip joint (ICD-10) Family History Father Family history of CHF (congestive heart failure) Family history of COPD (chronic obstructive pulmonary disease) Family history of hypertension Family history of stroke Grandfather Family history of cancer Family history of hypertension Grandfather Family history of cancer Brother Family history of diabetes mellitus Family history of hypertension Social History Within the past year, how often did you have a drink containing alcohol: 2-4 times a month Within the past year, how many standard drinks containing alcohol did you have on a typical day: 1 or 2 Within the past year, how often did you have six or more drinks on one occasion: never Total score: 0 Score interpretation: A score less than 4 is consistent with normal alcohol consumption. Smoking status: Current every day smoker Do you use any of these nicotine containing products: vaping products Non-prescribed substance use: denies use Previous occupational history: [employer] Highest level of school completed/degree received: Associate degree: occupational, technical, vocational program Little interest or pleasure in doing things: not at all Feeling down, depressed, or hopeless: not at all Feel stressed/tense/nervous/anxious/difficulty sleeping: not at all Meds Home Medications and Allergies Home Medications ?Medication ?Instructions ?Recorded ?Confirmed ?Type atorvastatin 20 mg tablet 20 mg PO DAILY 08/22/23 11/26/24 History fenofibrate 160 mg tablet 160 mg PO DAILY 08/22/23 11/26/24 History metoprolol succinate 50 mg 50 mg PO DAILY 08/22/23 11/12/24 History tablet,extended release 24 hr Held on 08/24/23. Instructions: Until follow up with PCP to discuss omeprazole 20 mg capsule,delayed 20 mg PO DAILY 08/22/23 11/26/24 History release oxybutynin chloride 5 mg tablet 5 mg PO DAILY 08/22/23 11/26/24 History magnesium oxide 400 mg (241.3 mg 400 mg PO DAILY 08/20/24 11/26/24 History magnesium) tablet semaglutide 2 mg/dose (8 mg/3 mL) 2 mg subcut QWEEK 08/20/24 11/26/24 History subcutaneous pen injector tamsulosin 0.4 mg capsule 0.4 mg PO Q24H 08/20/24 11/26/24 History tizanidine 4 mg tablet 4 mg PO Q12H PRN muscle spasticity 08/20/24 11/26/24 History meloxicam 7.5 mg tablet mg 09/17/24 History hydrocodone 5 mg-acetaminophen 325 1 tab PO DAILY PRN pain #30 tabs 11/30/24 Rx mg tablet Allergies Allergy/AdvReac Type Severity Reaction Status Date / Time No Known Drug Allergies Allergy Verified 11/26/24 11:25 Exam Constitutional Documenting provider has reviewed patient's vital signs: yes Common normals: no apparent distress, oriented x3, healthy appearing, alert and well nourished General appearance: cooperative HENTX Common normals: normocephalic, hearing grossly normal bilaterally and moist oral mucous membranes Head and scalp: normocephalic Eye Common normals: PERRL Pupil: PERRL Neck & C-Spine Common normals: full ROM General: normal visual inspection Chest Common normals: inspection of chest normal Respiratory Common normals: normal respiratory effort, no retractions and no use of accessory muscles Back & Pelvis Lumbar spine/lower back: pain with ROM, lumbar spinal tenderness Lumbar spinal tenderness location: L3, L4 and L5 and straight leg raise negative bilaterally Sacroiliac joints: SI joints normal Other: bilateral negative elizabeth(patricks), gaenslens, thigh thrust, compression test strength 5/5 in BLE sensation intact BLE intermittent cramping to BLE with standing/walking/lying flat Extremity Common normals: normal to inspection and full ROM Neuro Common normals: oriented x3 Sensorium/orientation: alert Psych Common normals: mental status grossly normal, thought process normal, cooperative, affect normal, speech normal and activity/motor behavior normal Speech: normal speech Thought process: normal thought process Assessment and Plan Assessment and Plan (1) Lumbar spondylosis: Assessment and Plan: The patient has had over 3 months of moderate to severe low back pain with functional impairment and inadequate response to conservative care including NSAIDS (unless there are contraindication such as concurrent blood thinners), multiple oral or topical pain medications, and home exercise program/physical therapy.? Patient has completed >6 weeks of guided home exercise program and/or formal physical therapy program without relief of their symptoms.? The Oswestry Disability Index was completed, and the patient scored a 40%.? The patient noted the following:?? moderate to severe pain impacting ADLs, sitting, standing, sleep, social life, travel We discussed the risks and benefits of the procedure with the patient, and we are NOT planning on using sedation as outlined in the guidelines from Medicare unless there is a documented reason that sedation would be strongly recommended.?? ?The procedure will be completed with fluoroscopic guidance.? (2) Lumbar stenosis with neurogenic claudication: Assessment and Plan: negative radiculopathy, mild NC symptoms intermittently (3) Sacroiliitis: Assessment and Plan: significant improvement on exam as noted above (4) Encounter for medication monitoring: (5) Chronic use of opiate drug for therapeutic purpose: Plan proceed with bilateral L4-5 L5-S1 facet RFA for axial facet mediated low back pain with 10mg po valium 30-60mins prior to procedure for anxiolysis continue current medications f/u 1 month after RFA complete
== END 2024-12-05 09:10 | disposition home or self-care (01) ==
LOC: PM 09:09
PROVIDERS: PCP Family Medicine; Visit Provider Nurse Practitioner
DX: M47.816 Spondylosis without myelopathy or radiculopathy, lumbar region (principal); M48.062 Spinal stenosis, lumbar region with neurogenic claudication; M46.1 Sacroiliitis, not elsewhere classified; Z51.81 Encounter for therapeutic drug level monitoring; Z79.891 Long term (current) use of opiate analgesic
CPT/HCPCS: G0463

== ENCOUNTER 2024-12-17 06:54 | Day surgery (SDC) | payer OTHER, SELFPAY ==
--- OUTSIDE RECORDS SUMMARY | 2024-11-26 | XMS_ITS ---
Author Name Auto Generated Organization OHIP Care Team Providers Care Quoter Name Role Phone OSMAR MANCINI Attending Unavailable OSMAR MANCINI Referring Unavailable OSMAR MANCINI Primary Care Unavailable OSMAR MANCINI Referring Unavailable DARIOLOOSMAR SINHA Primary Care Unavailable JORGE GIBBS Attending Unavailable OSMAR MANCINI Attending Unavailable OSMAR MANCINI Referring Unavailable OSMAR MANCINI Primary Care Unavailable OSMAR MANCINI Attending Unavailable FURLONG, OSMAR Auguste Referring Unavailable FURLONG, OSMAR Auguste Primary Care Unavailable FURLONG, OSMAR Auguste Referring Unavailable FURLONG, OSMAR Auguste Primary Care Unavailable FURLONG, OSMAR Auguste Referring Unavailable FURLONG, OSMAR Auguste Primary Care Unavailable FURLONG, OSMAR Auguste Attending Unavailable FURLONG, OSMAR Auguste Referring Unavailable FURLONG, OSMAR Auguste Primary Care Unavailable FURLONG, OSMAR Auguste Attending Unavailable FURLONG, OSMAR Auguste Referring Unavailable FURLONG, OSMAR Auguste Primary Care Unavailable Galea, Kiarra J Attending Unavailable SAI, JORGE Referring Unavailable Galea, Kiarra J Attending Unavailable Galea, Kiarra J Attending Unavailable Galea, Kiarra J Attending Unavailable Galea, Kiarra J Admitting Unavailable Galea, Kiarra J Attending Unavailable Galea, Kiarra J Admitting Unavailable Galea, Kiarra J Attending Unavailable Galea, Kiarra J Admitting Unavailable Galea, Kiarra J Attending Unavailable Galea, Kiarra J Admitting Unavailable Galea, Kiarra J Attending Unavailable Galea, Kiarra J Admitting Unavailable Galea, Kiarra J Attending Unavailable Giedraitis , Andrius Vjames Attending Unavailable Giedraitis , Andrius Vjames Attending Unavailable Giedraitis , Andrius Vytclarisa Attending Unavailable Giedraitis , Andrius Vytautjose Attending Unavailable Giedraitis , Andrius Vytclarisa Attending Unavailable PROBLEMS DATE TYPE CONDITION / CODE ATTENDING STATUS [facility] 04/03/2024 Unknown Morbid (severe) obesity due to excess calories / E66.01(ICD-10) OSMAR MANCINI [facility] 04/03/2024 Unknown Obesity, class 2 / E66.812(ICD-10) DARIOOSMAR SINHA [facility] 04/03/2024 Unknown Body mass index (BMI) 36.0-36.9, adult / Z68.36(ICD-10) OSMAR MANCINI [facility] 03/02/2022 Unknown Essential (prima ry) hypertension / I10(ICD-10) DARIOOSMAR SINHA [facility] 03/02/2022 Unknown Gastro-esophagea l reflux disease without esophagitis / K21.9(ICD-10) [place]SMAR [place]ANCINI [facility] [place] Unknown Follow-up / FREETEXT(AOF) [place]SMAR [place]ANCINI [facility] [place] Weight Check / FREETEXT(AOF) [place]SMAR [place]ANCINI [facility] [place] Unknown Back Pain / FREETEXT(AOF) [place]SMAR MANCINI [facility] [place]/31/2024 Unknown Encounter for ny reening for malignant neoplasm of prostate / Z12.5(ICD-10) [facility] 05/28/2024 Unknown Encounter for ge neral adult medical examination without abnormal findings / Z00.00(ICD-10) OSMAR MANCINI [facility] [place]/28[place]24 Unknown Spondylolisthesi s, lumbar region / M43.16(ICD-10) OSMAR MANCINI [facility] [place]/28/2024 Unknown Annual Exam / FREETEXT(AOF) OSMAR MANCINI [facility] [place]03/2024 Unknown controlled / UNK(Unknown) OSMAR MANCINI [facility] 01/19/2024 Unknown Calculus of uret er / N20.1(ICD-10) SAI JORGE [facility] 01/19/2024 Unknown Er Follow-up / FREETEXT(AOF) JORGE GIBBS [facility] 04/07/2023 Unknown Body mass index (BMI) 39.0-39.9, adult / Z68.39(ICD-10) OSMAR MANCINI [facility] 12/03/2022 Unknown Intervertebral d isc disorders with radiculopathy, lumbar region / M51.16(ICD-10) OSMAR MANCINI [facility] 01/02/2024 Unknown Benign lipomatou s neoplasm, unspecified / D17.9(ICD-10) OSMAR MANCINI [facility] [place]/02/2024 Unknown Weight Loss / FREETEXT(AOF) OSMAR MANCINI [facility] PROCEDURES No Procedure Records Found RESULTS PATIENT EDUCATION Observed: 10/04/2024 3:12 PM Status: F Source: [facility] Patient Education Urology Benign Prostatic Hyperplasia Benign [...] Follow these instructions at home: ??? Take lneg-kcg-blsyrlr and prescription medicines only as told by [...] pain. ??? Your symptoms do not get better with treatment. ??? You develop side effects from the medicine you are taking. ??? Your urine becomes very dark or has a bad smell. ??? Your lower abdomen becomes distended and you have trouble passing urine. Get help right away if: ??? You have a fever or chills. ??? You suddenly cannot urinate. ??? You feel light-headed or very dizzy, or you faint. ??? There are large amounts of blood or clots in your urine. ??? Your urinary problems become hard to manage. ??? You develop moderate to severe low back or flank pain. The flank is the side of your body between the ribs and the hip. These symptoms may be an emergency. Get help right away. Call 911. ??? Do not wait to see if the symptoms will go away. ??? Do not drive yourself to the hospital. Summary ??? Benign prostatic hyperplasia (BPH) is an enlarged prostate that is caused by the normal aging process. It is not caused by cancer. ??? An enlarged prostate can press on the urethra. This can make it hard to pass urine. ??? This condition is more likely to develop in men older than 50 years. ??? Get help right away if you suddenly cannot urinate. This information is not intended to replace advice given to you by your health care provider. Make sure you discuss any questions you have with your health care provider. Document Revised: 12/16/2021 Document Reviewed: 12/16/2021 Elsevier Patient Education ? 2023 ObserveIT. UROLOGY OFFICE/CLINIC NOTE Observed: 2:29 PM Status: F Source: [facility] Urology Office/Clinic Note Chief Complaint 4 month [...] has no urological complaints. Pt only c/o post- void dribbling, advised pt to ensure he is [...] E&M of Est. Patient Moderate 30-39 Min 2. Screening PSA (prostate specific antigen) (Z12.5: [...] E&M of Est. Patient Moderate 30-39 Min 3. History of kidney stones (Z87.442: Personal history of urinary calculi) 01/08/24 [facility] ER CT w/o con - mild [...] medical centert in June. -Increase fluids -Add [place] to fluid intake -Call our office for any stone symptoms Ordered: E&M of Est. Patient Moderate 30-39 Min 4. Asymptomatic microscopic hematuria (R31.21: Asymptomatic microscopic hematuria) 02/23/24 micro UA - RBC 0-3, cx negative Unable to provide urine sample today -Pt knows to call for gross hematuria Ordered: E&M of Est. Patient Moderate 30-39 Min Orders: oxybutynin, 5 mg = 1 tab(s), Oral, Daily, # 90 tab(s), Refills(s) 3, Pharmacy: [id number], 168, cm, 10/04/24 14:50:00 EDT, Height/Length Dosing, 100.5, kg, 10/04/24 14:50:00 EDT, Weight Dosing Follow-up With When Contact Information RANDY SWANN, STEVEN John, URL In 9 months [address] 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 Medications acetaminophen-hydrocodone 325 mg-5 mg oral tablet atorvastatin 20 mg Tab fenofibrate 160 mg oral tablet Flomax 0.4 mg Cap, 0.4 mg= 1 cap(s), Oral, Daily, 11 refills magnesium oxide 400 mg Tab meloxicam 7.5 mg Tab, 7.5 mg= 1 tab(s), Oral, Daily omeprazole 20 mg Cap-DR, 20 mg= 1 cap(s), Oral, Daily oxybutynin 5 mg ER Tab, 5 mg= 1 tab(s), Oral, Daily, 3 refills Allergies No Known Allergies Social History Alcohol Current. Beer. 1-2 times per month., 05/24/2024 Substance Abuse Past. Cocaine. Daily. Previous treatment: None., 05/24/2024 Tobacco Former smoker, quit more than 30 days ago Tobacco Use:. Never, Current vaping or e-cigarette use Smokeless Tobacco Use:. Cigarettes, Vaping, 10/04/2024 Immunizations Vaccine Date Status hepatitis B adult vaccine 02/03/2018 Recorded hepatitis B adult vaccine 09/07/2017 Recorded hepatitis B pediatric vaccine 08/04/2017 Recorded Result Comment: Electronical ly Signed By: Kiarra Christiansen\.jean\Date and Time Signed: 10/04/24 15:14 EDT AMBULATORY VISIT SUMMARY Observed: 10/04 2:29 PM Status: F Source: [facility] Ambulatory Visit Summary JORGITO HARRY :1975 Visit Date:10/04/2024 Ambulatory Visit Instructions Your Diagnosis BPH with obstruction/lower urinary tract symptoms Screening PSA (prostate specific antigen) History of kidney stones Asymptomatic microscopic hematuria Your Care Team Attending Physician - Kiarra Christiansen Primary Care Physician - OSMAR MANCINI DO This Is Your Medications List oxybutynin (oxybutynin 5 mg ER Tab) Contact prescribing physician if questions or concerns acetaminophen-hydrocodone (acetaminophen-hydrocodone 325 mg-5 mg oral tablet) atorvastatin (atorvastatin [...] PM EST With: Where: [facility] [address] [id number] 3:20 PM EST With: STEVEN PADILLA PA-C Where: [facility] [address] [phone]- You Need to Schedule the Following Appointments Follow Up with STEVEN PADILLA PA-C, URL When: In 9 months Comments: w/ PSA Where: [address] [place] [id number] Medications What How Much When Why Instructions Unchanged oxybutynin (oxybutynin 5 mg ER Tab) 1 Tablets By Mouth Every day Pickup at [id number] Unchanged acetaminophen-hydrocodone (acetaminophen-hydrocodone 325 mg-5 mg oral tablet) TAKE 1 [...] physician if questions or concerns Pharmacy Information [email or web address]: [address] [place], [place] [id number] [phone] Allergies No Known Allergies Problems Ongoing - [...] Follow these instructions at home: ??? Take srny-fpe-xysbzks and prescription medicines only as told by [...] pain. ??? Your symptoms do not get better with treatment. ??? You develop side effects from the medicine you are taking. ??? Your urine becomes very dark or has a bad smell. ??? Your lower abdomen becomes distended and you have trouble passing urine. Get help right away if: ??? You have a fever or chills. ??? You suddenly cannot urinate. ??? You feel light-headed or very dizzy, or you faint. ??? There are large amounts of blood or clots in your urine. ??? Your urinary problems become hard to manage. ??? You develop moderate to severe low back or flank pain. The flank is the side of your body between the ribs and the hip. These symptoms may be an emergency. Get help right away. Call 911. ??? Do not wait to see if the symptoms will go away. ??? Do not drive yourself to the hospital. Summary ??? Benign prostatic hyperplasia (BPH) is an enlarged prostate that is caused by the normal aging process. It is not caused by cancer. ??? An enlarged prostate can press on the urethra. This can make it hard to pass urine. ??? This condition is more likely to develop in men older than 50 years. ??? Get help right away if you suddenly cannot urinate. This information is not intended to replace advice given to you by your health care provider. Make sure you discuss any questions you have with your health care provider. Document Revised: 12/16/2021 Document Reviewed: 12/16/2021 Blossom Patient Education ??? 2023 ObserveIT. COMPREHENSIVE METABOLIC PANEL Collected: 2023 3:27 PM Status: COMPLETED Source: [facility] TYPE CODE TESTS RESULT OUT OF RANGE REFERENCE UNITS LAB NA(LOINC) SODIUM 141 134-146 mmol/L LAB K(LOINC) POTASSIUM 4.2 3.5-5.0 mmol/L LAB CL(LOINC) CHLORIDE 105 98-109 mmol/L LAB CO2(LOINC) CARBON DIOXIDE 26 22-32 mmol/L LAB AGAP(LOINC) ANION GAP 10 5-15 mmol/L LAB BUN(LOINC) BLOOD UREA NITROGEN 18 5-23 mg/dL LAB CRET(LOINC) CREATININE 1.05 0.60-1.30 mg/dL Result Comment: METHOD TRACE ABLE TO IDMS STANDARD LAB GLU(LOINC) GLUCOSE 132 High 65-99 mg/dL LAB CA(LOINC) CALCIUM 10.4 8.5-10.5 mg/dL LAB TP(LOINC) TOTAL PROTEIN 7.6 6.0-8.0 g/dL LAB ALB(LOINC) ALBUMIN 4.5 3.2-5.3 g/dL LAB ALK(LOINC) ALKALINE PHOSPHATASE 75 39-130 U/L LAB AST(LOINC) AST 28 0-41 U/L LAB ALT1(LOINC) ALT 29 0-40 U/L LAB TBIL(LOINC) BILIRUBIN,TOTAL 0.4 0.3-1.2 mg/d L LAB EGFR(LOINC) eGFR (CKD-EPI) NON-RACE DEPENDENT 86 >59 ml/min/1 .73sq.m Result Comment: Reported eGFR is based on the CKD-EPI 2020 equation that does not use a race coefficient. Performed By: #### RAMESH, 2433 1-1 #### [facility] ([id number]) [address] [place] [address] LIPID PROFILE Collected: 05/28/2024 3:27 PM Status: COMPLETED Source: [facility] TYPE CODE TESTS RESULT OUT OF RANGE REFERENCE UNITS LAB CHOL(LOINC) CHOLESTEROL 118 Low 150-200 mg/dL LAB TRIG(LOINC) TRIGLYCERIDE 233 High 27-150 mg/dL LAB HDL(LOINC) HDL CHOLESTEROL 27 Low >39 mg/dL Result Comment: HDL <40 mg/dL - High Risk HDL > or = 40mg/dL- Desirable HDL >60 mg/dL - Negative Risk LAB VLDL(LOINC) VERY LOW LIPOPROTEIN 47 High 0-30 mg/dL LAB LDL(LOINC) LDL (CALC) 44 <130 mg/dL Result Comment: LDL <100 mg/dL - Desirable LDL >160 mg/dL - High Risk LAB CHDL(LOINC) CHOLESTEROL:HDL 4.4 1.0-5.0 Performed By: #### RAMESH, 2433 1-1 #### [facility] ([id number]) [address] [place] [address], [address] [address] AMBULATORY VISIT SUMMARY Observed: 05/24 3:40 PM Status: F Source: [facility] Ambulatory Visit Summary JORGITO HARRY :1975 Visit Date:01/25/2024 Ambulatory Visit Instructions Your Care Team Primary Care Physician - OSMAR MANCINI DO This Is Your Medications List acetaminophen-hydrocodone (acetaminophen-hydrocodone 325 mg-5 mg oral tablet) atorvastatin (atorvastatin 20 mg Tab) fenofibrate (fenofibrate 160 mg oral tablet) magnesium oxide (magnesium oxide 400 mg Tab) omeprazole (omeprazole 20 mg Cap-DR) oxybutynin (oxybutynin 5 mg ER Tab) tamsulosin (Flomax 0.4 mg Cap) Procedures Performed 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 Medications What How Much When Why Instructions Unchanged acetaminophen-hydrocodone (acetaminophen-hydrocodone 325 mg-5 mg oral tablet) TAKE 1 [...] you for choosing us for your care. REMINDERS Observed: 05/24/2024 3:40 PM Status: C Source: [facility] Reminders From: Carlie Ramirez To: [facility] - Administrative; Sent: 05/24/2024 15:40:45 EST Show up: 07/14/2024 15:40:00 EST Subject: Ambulatory Reminder Due Date/Time: 09/11/2024 15:40:00 EDT Reminder/Recall Patient needs scheduled with [facility] for a 3-4m f/u in [place], schedule not built for her yet. due back the beginning of September, Pt has been scheduled for 09/2024 w/[facility] UROLOGY OFFICE/CLINIC NOTE Observed: 05/2024 10:53 AM Status: F Source: [facility] Urology Office/Clinic Note Chief Complaint 3 mth [...] (Z87.442: Personal history of urinary calculi) 01/08/24 [facility] ER CT w/o con - mild [...] stone within right ureter. Pt went to [facility] ER on 01/08/24 due to pain. [...] ensure stone passage. Pt then went to [facility] ER on 02/27/24 for gross hematuria, abdominal/scrotal pain and also experienced urinary frequency and urgency. No labs or imaging were completed at that visit. Advised pt that he most likely was passing a stone at that time. IVP completed 03/06/24, no stone identified. This is patient's first stone event. Today, he denies further stone events. Denies gross hematuria. -Increase fluids -Add [place] to fluid intake -Call our office for [...] drawn IO today, will call with results Rory, Stefany Farooq PA-C personally scribed for Kiarra Min CNP on 05/24/2024 10:48:26. . Follow-up With When Contact Information Mechelle BARCENAS, Kiarra Gant, URL Additional Instructions: F/U 3 months Patient Education Prostate Cancer Screening Prostate Cancer Screening Benign Prostatic Hyperplasia Documentation recorded by the ADARSH Méndez accurately reflects the services(s) I performed and decisions made by me. Authenticated by SWAPNA Aceves on 05/24/2024 11:07:20. 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 Medications acetaminophen-hydrocodone 325 mg-5 mg oral tablet atorvastatin 20 mg Tab fenofibrate 160 mg oral tablet Flomax 0.4 mg Cap, 0.4 mg= 1 cap(s), Oral, Daily, 11 refills magnesium oxide 400 mg Tab omeprazole 20 mg Cap-DR, 20 mg= 1 cap(s), Oral, Daily oxybutynin 5 mg ER Tab, 5 mg= 1 tab(s), Oral, Daily, 3 refills Allergies No Known Allergies Social History Alcohol Current. Beer. 1-2 times per month., 05/24/2024 Substance Abuse Past. Cocaine. Daily. Previous treatment: None., 05/24/2024 Tobacco 4 or less cigarettes(less than 1/4 pack)/day in last 30 days, Former smoker, quit more than 30 days ago Tobacco Use:., 05/24/2024 Immunizations Vaccine Date Status hepatitis B adult vaccine 02/03/2018 Recorded hepatitis B adult vaccine 09/07/2017 Recorded hepatitis B pediatric vaccine 08/04/2017 Recorded Lab Results Ambulatory Point of Care Results Bilirubin Urine Dipstick: Negative (05/24/24 09:15:00) Blood Urine Dipstick: Negative (05/24/24 09:15:00) Glucose Urine Dipstick: Negative (05/24/24 09:15:00) Ketones Urine Dipstick: Negative (05/24/24 09:15:00) Leukocytes Urine Dipstick: Negative (05/24/24 09:15:00) Nitrite Urine Dipstick: Negative (05/24/24 09:15:00) Protein Urine Dipstick: Trace (05/24/24 09:15:00) Specific [place] Urine Dipstick: >=1.030 (05/24/24 09:15:00) Urine Appearance Urine Dipstick: Clear (05/24/24 09:15:00) Urine Color Urine Dipstick: Yellow (05/24/24 09:15:00) Urobilinogen Urine Dipstick: Normal 0.2-1 EU/dl (05/24/24 09:15:00) pH Urine Dipstick: 5.5 (05/24/24 09:15:00) Result Comment: Electronical ly Signed By: Kiarra Christiansen\.br\Date and Time Signed: 05/24/24 11:08 EST\.br\Electronically Co-Signed By: Stefany Farooq PA-C\.br\Date and Time Co-Signed: 05/24/24 10:54 EST PATIENT EDUCATION Observed: 05/24/2024 10:52 AM Status: C Source: [facility] Patient Education Prostate Cancer Screening Prostate cancer [...] Where to find more information ??? [employer] [place] [employer]: www.cancer.org ??? [place] [employer]: www.auanet.org Contact a health care [...] gland adds fluid to semen during ejaculation. ??? Prostate cancer screening may identify cancer at an early stage, when the cancer can be treated more easily and is less likely to have spread to other areas of the body. ??? The prostate-specific antigen (PSA) test is the recommended screening test for prostate cancer, but it has associated risks. ??? Discuss the risks and benefits of prostate [...] provider. Document Revised: 11/23/2021 Document Reviewed: 11/23/2021 Blossom Patient Education ? 2023 ObserveIT.Oncology Prostate Cancer Screening Prostate cancer screening is [...] Where to find more information ??? The [place] [employer]: www.cancer.org ??? [place] [employer]: www.auanet.org Contact a health care [...] gland adds fluid to semen during ejaculation. ??? Prostate cancer screening may identify cancer at an early stage, when the cancer can be treated more easily and is less likely to have spread to other areas of the body. ??? The prostate-specific antigen (PSA) test is the recommended screening test for prostate cancer, but it has associated risks. ??? Discuss the risks and benefits of prostate [...] provider. Document Revised: 11/23/2021 Document Reviewed: 11/23/2021 Blossom Patient Education ? 2023 ObserveIT.Urology Benign Prostatic Hyperplasia Benign prostatic hyperplasia (BPH) [...] Follow these instructions at home: ??? Take cthe-jzi-ofiffcy and prescription medicines only as told by [...] pain. ??? Your symptoms do not get better with treatment. ??? You develop side effects from the medicine you are taking. ??? Your urine becomes very dark or has a bad smell. ??? Your lower abdomen becomes distended and you have trouble passing urine. Get help right away if: ??? You have a fever or chills. ??? You suddenly cannot urinate. ??? You feel light-headed or very dizzy, or you faint. ??? There are large amounts of blood or clots in your urine. ??? Your urinary problems become hard to manage. ??? You develop moderate to severe low back or flank pain. The flank is the side of your body between the ribs and the hip. These symptoms may be an emergency. Get help right away. Call 911. ??? Do not wait to see if the symptoms will go away. ??? Do not drive yourself to the hospital. Summary ??? Benign prostatic hyperplasia (BPH) is an enlarged prostate that is caused by the normal aging process. It is not caused by cancer. ??? An enlarged prostate can press on the urethra. This can make it hard to pass urine. ??? This condition is more likely to develop in men older than 50 years. ??? Get help right away if you suddenly cannot urinate. This information is not intended to replace advice given to you by your health care provider. Make sure you discuss any questions you have with your health care provider. Document Revised: 12/16/2021 Document Reviewed: 12/16/2021 ElseJooobz! Patient Education ? 2023 ObserveIT. PSA TOTAL Collected: 9:52 AM Status: F Source: [facility] TYPE CODE TESTS RESULT OUT OF RANGE REFERENCE UNITS LAB 2857-1([facility]) PROSTATE SPECIFIC AG:MCNC:PT:S ER/PLAS:QN: 0.8 Normal 0.1-3.5 ng/mL Result Comment: The concentr ation of PSA determined by different manufacturers can vary due to differences in assay methods and reagent specificity. Values obtained from different assay methods cannot be used interchangeably. The methodology used for this result was chemiluminescence using [employer] Access [employer]brite[employer] PSA reagent. Performed By: #### [id number] #### [facility] [address] [place] [address] PROVIDER LETTER Observed: 03/06/2024 8:52 AM Status: F Source: [facility] Provider Letter March 06, 2024 [address]ITO [address]Y [address] [place] [id number] : 1975 To Whom It May Concern, Please excuse above patient from work. Date of appointment: From: 03/06/2024 To: _ May Return to Work On:03/06/2024 Restrictions: none Comments: Any questions, please call our office Sincerely, [facility] [address], [place] [address] UROLOGY OFFICE/CLINIC NOTE Observed: 3:58 PM Status: F Source: [facility] Urology Office/Clinic Note Chief Complaint gross hematuria [...] (Z87.442: Personal history of urinary calculi) 01/08/24 [facility] ER CT w/o con - mild R hydronephrosis due to a 5mm proximal R ureteral stone near the UPJ. No additional upper or lower urinary tract calculi are seen on either side. There are no other acute findings in the abdomen or pelvis 02/16/24 [facility] - no appreciable urinary tract calculi Pt went to [facility] ER on 01/08/24 due to pain. [...] not had pain. Pt then went to [facility] ER on 02/27/24 for gross hematuria, [...] [place]. Discussed increasing fluids and adding lemon/[place] to patient's regimen, pt verbalizes understanding. Briefly discussed metabolic workup with patient should he develop another stone. -IVP now at [facility], call patient with results -If a stone is present, we will set patient up with appt with Dr. Nunn to discuss treatment. If no stone on IVP, this will ensure stone passage and pt to follow up as scheduled -Increase fluids, avoid bladder irritants -Add lemon/[place], lemonade to fluid intake -Call our office for any stone symptoms -F/U 1 year with KUB/KECIA Ordered: E&M of Est. Patient Moderate 30-39 Min 32912 2. Gross hematuria (R31.0: Gross hematuria) UA today negative for blood or infection -See #1 Ordered: Creatinine E&M of Est. Patient Moderate 30-39 Min 81202 Urnls Dip Stick Auto w/o Microscopy POC 14879 XR IVP 3. BPH with obstruction/lower urinary [...] daily -Restart Oxybutynin 5mg PO daily -Increase fluids, avoid bladder irritants -Timed voids -F/U 3 months, consider cystoscopy Ordered: E&M of Est. Patient Moderate 30-39 Min 44754 4. Asymptomatic microscopic hematuria (R31.21: Asymptomatic microscopic hematuria) 01/08/[address] [facility] [address] w/o con - mild R hydronephrosis due to a 5mm proximal R ureteral stone near the UPJ. No additional upper or lower urinary tract calculi are seen on either side. There are no other acute findings in the abdomen or pelvis 02/23/24 micro UA - RBC 0-3, cx negative UA today negative for blood or infection Advised pt of findings from prior testing. No concern for further testing at this time. -Pt knows to call should he experience gross hematuria Ordered: E&M of Est. Patient Moderate 30-39 Min 96247 5. Screening PSA (prostate specific antigen) (Z12.5: [...] patient at 3mo F/U Ordered: E&M of Est. Patient Moderate 30-39 Min 11961 Orders: oxybutynin, 5 mg = 1 tab(s), Oral, Daily, # 90 tab(s), Refills(s) 3, Pharmacy: [facility], 168, cm, 03/01/24 15:29:00 EDT, Height/Length Dosing, 102, kg, 03/01/24 15:29:00 EDT, Weight Dosing Follow-up With When Contact Information Kiarra Christiansen, URL Additional Instructions: Appointment has already been scheduled Patient Education Hematuria, Adult Problem List/Past Medical History Ongoing No qualifying data Historical No qualifying data Medications acetaminophen-hydrocodone 325 mg-5 mg oral tablet atorvastatin 20 mg Tab fenofibrate 160 mg oral tablet Flomax 0.4 mg Cap, 0.4 mg= 1 cap(s), Oral, Daily, 11 refills magnesium oxide 400 mg Tab omeprazole 20 mg Cap-DR, 20 mg= 1 cap(s), Oral, Daily oxybutynin 5 mg ER Tab, 5 mg= 1 tab(s), Oral, Daily, 3 refills Allergies No Known Allergies Social History Tobacco 4 or less cigarettes(less than 1/4 pack)/day in last 30 days, Former smoker, quit more than 30 days ago Tobacco Use:. Never Smokeless Tobacco Use:. Vaping, Yes, 03/01/2024 Lab Results Ambulatory Point of Care Results Bilirubin Urine Dipstick: Negative (03/01/24 15:07:00) Blood Urine Dipstick: Negative (03/01/24 15:07:00) Glucose Urine Dipstick: Negative (03/01/24 15:07:00) Ketones Urine Dipstick: Negative (03/01/24 15:07:00) Leukocytes Urine Dipstick: Negative (03/01/24 15:07:00) Nitrite Urine Dipstick: Negative (03/01/24 15:07:00) Protein Urine Dipstick: Negative (03/01/24 15:07:00) Specific Haskell Urine Dipstick: >=1.030 (03/01/24 15:07:00) Urine Appearance Urine Dipstick: Clear (03/01/24 15:07:00) Urine Color Urine Dipstick: Dark yellow (03/01/24 15:07:00) Urobilinogen Urine Dipstick: Normal 0.2-1 EU/dl (03/01/24 15:07:00) pH Urine Dipstick: 5.5 (03/01/24 15:07:00) Result Comment: Electronical ly Signed By: Kiarra Christiansen.jean\Date and Time Signed: 03/01/24 15:58 EDT PATIENT EDUCATION Observed: 03/01/2024 3:57 PM Status: F Source: [facility] Patient Education Urology Hematuria, Adult Hematuria is [...] these instructions at home: Medicines ? Take iaot-pud-vpdjsqj and prescription medicines only as told by [...] the blood stops without treatment. ? Take bmpz-bvi-vkojhsr and prescription medicines only as told by your health care provider. ? Drink enough fluid to keep your urine pale yellow. This information is not intended to replace advice given to you by your health care provider. Make sure you discuss any questions you have with your health care provider. Document Revised: 01/28/2021 Document Reviewed: 01/28/2021 [employer]ossom Patient Education ? 2023 ObserveIT. AMBULATORY VISIT SUMMARY Observed: 03/01 3:41 PM Status: F Source: [facility] Ambulatory Visit Summary JORGITO HARRY :1975 Visit Date:03/01/2024 Ambulatory Visit Instructions Your Diagnosis Gross hematuria Your Care Team Attending Physician - Kiarra Christiansen Primary Care Physician - OSMAR MANCINI DO This Is Your Medications List acetaminophen-hydrocodone (acetaminophen-hydrocodone 325 mg-5 mg oral tablet) atorvastatin (atorvastatin [...] With: Kiarra Christiansen Where: [facility] [place] [id number] Medications What How Much When Why Instructions Unchanged acetaminophen-hydrocodone (acetaminophen-hydrocodone 325 mg-5 mg oral tablet) TAKE 1 [...] you for choosing us for your care. URINALYSIS WITH MICRO Collected: 2023 11:17 AM Status: F Source: [facility] TYPE CODE TESTS RESULT OUT OF RANGE REFERENCE UNITS LAB 9194-2([facility]) CLASS:TYPE:PT: URINE COLLECTION METHOD:NOM:* Clean Catch Normal LAB 00298-8([facility]) COLOR:TYPE:PT: URINE:NOM:AUTO Yellow Normal Yellow Result Comment: Microscopic readings are only performed on those samples that meet specific criteria set forth by [facility]. LAB 54483-2([facility]) CLARITY:TYPE:P T:URINE:NOM: Ex.Turbid Abnormal Clear LAB 5811-5([facility]) SPECIFIC GRAVITY:RDEN:P T:URINE:SEMIQN :TEST STRIP 1.025 Unknown 1.005-1.030 LAB 5803-2([facility]) PH:LSCNC:PT:UR INE:SEMIQN:LADI T STRIP 5.0 Unknown 5.0-9.0 LAB 80893-8([facility]) PROTEIN:PRTHR: PT:URINE:ORD:T EST STRIP Negative Normal Negative mg/dL LAB 01687-3([facility]) GLUCOSE:PRTHR: PT:URINE:ORD:T EST STRIP Negative Normal Negative mg/dL LAB 52214-8([facility]) KETONES:PRTHR: PT:URINE:ORD:T EST STRIP.AUTOMATE D Negative Normal Negative mg/dL LAB 02764-1([facility]) BILIRUBIN:PRTH R:PT:URINE:ORD :TEST STRIP.AUTOMATE D Negative Normal Negative mg/dL LAB 13576-9([facility]) HEMOGLOBIN:MCN C:PT:URINE:MIGUEL ÁNGEL IQN:TEST STRIP.AUTOMATE D Negative Normal Negative mg/dL LAB 80925-4([facility]) NITRITE:PRTHR: PT:URINE:ORD:T EST STRIP.AUTOMATE D Negative Normal Negative mg/dL LAB 49358-6([facility]) UROBILINOGEN:M CNC:PT:URINE:S EMIQN:TEST STRIP Negative Normal Negative mg/dL LAB 46900-5([facility]) LEUKOCYTE ESTERASE:PRTHR :PT:URINE:ORD: TEST STRIP.AUTOMATE D Negative Normal Negative CD:58379 93667 LAB 45515-0([facility]) ERYTHROCYTES:P RTHR:PT:URINE SED:ORD:MICROS COPY.LIGHT 0-3 Normal 0-3 CD:57318 02838 LAB 50076-2([facility]) MUCUS:PRTHR:PT :URINE:ORD:AUT OMATED 1+ Abnormal Negative CD:93914 33445 LAB 38729-9([facility]) CRYSTALS.AMORP HOUS:PRTHR:PT: URINE:ORD:COMP UTER ASSISTED Present Abnormal CD:50263 57397 Performed By: #### [id number] #### [facility] [address] [place] [address] C URINE Observed: 02/23/2024 11:17 AM Status: F Source: [facility] Microbiology PROCEDURE: Urine Culture [R1] SOURCE: U Random BODY SITE: COLLECTED DATE/TIME: 02/23/2024 11:17 EDT RECEIVED DATE/TIME: 02/23/2024 19:34 EDT START DATE/TIME: 02/23/2024 19:34 EDT FREE TEXT SOURCE: Kiarra Christiansen-Neyda, Kiarra Gant FINAL REPORTS Final Report [] Verified Date/Time: 02/25/2024 09:46 EDT No growth at 2 days. Performing Locations R1: This test was performed at: [facility], [address] [place] [address], [id number] [place] [address], Performed By: #### [id number] # ### [facility] [address] [place] [address] C URINE Observed: 02/23/2024 11:17 AM Status: F Source: [facility] Microbiology PROCEDURE: Urine Culture [R1] SOURCE: U Random BODY SITE: COLLECTED DATE/TIME: 02/23/2024 11:17 EDT RECEIVED DATE/TIME: 02/23/2024 19:34 EDT START DATE/TIME: 02/23/2024 19:34 EDT FREE TEXT SOURCE: Kiarra Christiansen, Kiarra Gant FINAL REPORTS Final Report [] Verified Date/Time: 02/25/2024 09:46 EDT No growth at 2 days. Performing Locations R1: This test was performed at: [facility], [address] [place] [address], [address] [place] [address], Performed By: #### [id number] # ### [facility] [address] [place] [address] UROLOGY OFFICE/CLINIC NOTE Observed: 05/2024 11:06 AM Status: F Source: [facility] Urology Office/Clinic Note Chief Complaint CV TECH- referral from 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 was taking flomax, [...] Skin: No rashes or suspicious lesions Assessment/Plan CV TECH referred by Jorge Gibbs NP for ureteral stone. 01/08/24 - BUN 27, Cre 1.95, GFR 44 (pt had hydro due to ureteral stone at this time), no repeat labs in [facility] 1. History of kidney stones (Z87.442: Personal history of urinary calculi) 01/08/24 [facility] ER CT w/o con - mild R hydronephrosis due to a 5mm proximal R ureteral stone near the UPJ. No additional upper or lower urinary tract calculi are seen on either side. There are no other acute findings in the abdomen or pelvis 02/16/24 KUB - no appreciable urinary tract calculi Pt went to [facility] ER on 01/08/24 due to pain. [...] Mt. Dew. Discussed increasing fluids and adding lemon/[place] to patient's regimen, pt verbalizes understanding. Briefly discussed metabolic workup with patient should he develop another stone. -Increase fluids, avoid bladder irritants -Add lemon/[place], lemonade to fluid intake -Call our office for any stone symptoms -F/U 1 year with KUB/KECIA Ordered: E&M of New Patient High 60-74 Min 25641 2. BPH with obstruction/lower urinary tract symptoms [...] Daily, # 30 cap(s), Refills(s) 11, Pharmacy: [facility], 168, cm, 02/23/24 10:12:00 EDT, Height/Length Dosing, 102, kg, 02/23/24 10:12:00 EDT, Weight Dosing E&M of New Patient High 60-74 Min 39613 3. Screening PSA (prostate specific antigen) (Z12.5: [...] E&M of New Patient High 60-74 Min 81808 PSA Total 4. Asymptomatic microscopic hematuria (R31.21: Asymptomatic microscopic hematuria) 01/08/24 [facility] ER CT w/o con - mild [...] had a strong odor. Denies gross hematuria. Briefly discussed hematuria workup with patient, pt agreeable to proceed if needed. AUA microhematuria risk assessment: age FM 50-59, M 40-59 : intermediate smoking hx 10-30 pack years : intermediate RBCs on UA unknown, will send for microscopy additional risk factors : irritative LUTS yes, chronic and unchanged family hx cancer no occupational exposure no hx chronic indwelling foreign body in urinary tract no previously low risk with no prior imaging/cysto : no, first episode based on the above risk assessment the pt is considered unknown risk. will send urine for microscopy and based on RBCs will proceed with next steps which have been discussed w pt in detail (low - repeat UA 6 mos, intermediate - cysto + KECIA, high - cysto + CTU). -Send urine for culture and micro -Will discuss findings with patient at 3mo F/U Ordered: E&M of New Patient High 60-74 Min 57917 Orders: 06755 Measure Post Void residual urine and/or bladder capacity by US- non- imaging Urnls Dip Stick Auto w/o Microscopy POC 45037 Follow-up With When Contact Information Mechelle BARCENAS, Kiarra Gant, URL Within 3 months Additional Instructions: w/PSA Patient Education Benign Prostatic Hyperplasia Problem List/Past Medical History Ongoing No qualifying data Historical No qualifying data Medications acetaminophen-hydrocodone 325 mg-5 mg oral tablet atorvastatin 20 mg Tab fenofibrate 160 mg oral tablet Flomax 0.4 mg Cap, 0.4 mg= 1 cap(s), Oral, Daily, 11 refills magnesium oxide 400 mg Tab omeprazole 20 mg Cap-DR, 20 mg= 1 cap(s), Oral, Daily Allergies No Known Allergies Social History Tobacco 4 or less cigarettes(less than 1/4 pack)/day in last 30 days, Former smoker, quit more than 30 days ago Tobacco Use:. Never Smokeless Tobacco Use:. Vaping, 02/23/2024 Lab Results Ambulatory Point of Care Results Bilirubin Urine Dipstick: Negative (02/23/24 09:57:00) Blood Urine Dipstick: Trace-intact (02/23/24 09:57:00) Glucose Urine Dipstick: Negative (02/23/24 09:57:00) Ketones Urine Dipstick: Negative (02/23/24 09:57:00) Leukocytes Urine Dipstick: Negative (02/23/24 09:57:00) Nitrite Urine Dipstick: Negative (02/23/24 09:57:00) Protein Urine Dipstick: Negative (02/23/24 09:57:00) Specific Haskell Urine Dipstick: >=1.030 (02/23/24 09:57:00) Urine Appearance Urine Dipstick: Clear (02/23/24 09:57:00) Urine Color Urine Dipstick: Yellow (02/23/24 09:57:00) Urobilinogen Urine Dipstick: Normal 0.2-1 EU/dl (02/23/24 09:57:00) pH Urine Dipstick: 5.5 (02/23/24 09:57:00) Result Comment: Electronical ly Signed By: Kiarra Christiansen.br\Date and Time Signed: 02/23/24 11:07 EDT PATIENT EDUCATION Observed: 02/23/2024 11:05 AM Status: F Source: [facility] Patient Education Urology Benign Prostatic Hyperplasia Benign [...] Follow these instructions at home: ? Take knal-ziu-shfffca and prescription medicines only as told by [...] better with treatment. ? You develop side effects from the medicine you are taking. ? Your urine becomes very dark or has a bad smell. ? Your lower abdomen becomes distended and you have trouble passing urine. Get help right away if: ? You have a fever or chills. ? You suddenly cannot urinate. ? You feel light-headed or very dizzy, or you faint. ? There are large amounts of blood or clots in your urine. ? Your urinary problems become hard to manage. ? You develop moderate to severe low back or flank pain. The flank is the side of your body between the ribs and the hip. These symptoms may be an emergency. Get help right away. Call 911. ? Do not wait to see if the symptoms will go away. ? Do not drive yourself to the hospital. Summary ? Benign prostatic hyperplasia (BPH) is an enlarged prostate that is caused by the normal aging process. It is not caused by cancer. ? An enlarged prostate can press on the urethra. This can make it hard to pass urine. ? This condition is more likely to develop in men older than 50 years. ? Get help right away if you suddenly cannot urinate. This information is not intended to replace advice given to you by your health care provider. Make sure you discuss any questions you have with your health care provider. Document Revised: 12/16/2021 Document Reviewed: 12/16/2021 ElseJooobz! Patient Education ? 2023 ObserveIT. AMBULATORY VISIT SUMMARY Observed: 02/22 10:41 AM Status: F Source: [facility] Ambulatory Visit Summary JORGITO HARRY :1975 Visit Date:01/25/2024 Ambulatory Visit Instructions Your Care Team Primary Care Physician - OSMAR MANCINI DO This Is Your Medications List acetaminophen-hydrocodone (acetaminophen-hydrocodone 325 mg-5 mg oral tablet) atorvastatin (atorvastatin 20 mg Tab) fenofibrate (fenofibrate 160 mg oral tablet) magnesium oxide (magnesium oxide 400 mg Tab) omeprazole (omeprazole 20 mg Cap-DR) What to do next Scheduled Follow-Up Appointments 2023 9:00 AM EST With: Kiarra Christiansen Where: [facility] [address] [address]- Medications What How Much When Instructions Unchanged acetaminophen-hydrocodone (acetaminophen-hydrocodone 325 mg-5 mg oral tablet) TAKE 1 [...] you for choosing us for your care. PROVIDER LETTER Observed: 02/23/2024 10:41 AM Status: F Source: [facility] Provider Letter February 23, 2024 [place] [address] : 1975 To Whom It May Concern, Please excuse above patient from work. Date of appointment: From: 02/23/2024 To: _ May Return to Work On:02/23/2024 Restrictions: none Comments: Any questions, please call our office Sincerely, [facility] [address], [place] [address] ALLERGIES DATE TYPE / CODE NAME / CODE REACTION SEVERITY SOURCE Miscellaneous Allergy/247148652(SNOME D CT) No Known Allergies [facility] Class/076157522(SNOMED CT) NO KNOWN ALLERGIES [facility] Ambulatory [facility] ENCOUNTERS ADMIT/DISCHARGE ACCOUNT NUMBER ADMITTING ENCOUNTER CLASS LOCATION SOURCE 11/26/2024/11/27/19 [id number] Ambulatory [place] [facility] 11/12/2024/11/13/19 25 [id number] Ambulatory PM [place]PM [facility] 10/15/2024/10/16/19 25 [id number] Ambulatory PM [place]PM [facility] 10/04/2024/10/05/19 25 [id number] Ambulatory EU [place]: Exam 1 [facility] 09/17/2024/09/18/19 25 [id number] Ambulatory PM [place]PM [facility] 09/13/2024/09/14/19 25 [id number] Ambulatory [address] [place] [address] Ambulatory P[facility] 08/20/2024/08/21/19 25 [id number] Ambulatory PM [place]:PM [facility] 07/27/2024/07/27/19 25 [id number] Ambulatory Buildin [address] [facility] Ambulatory [facility] 05/31/2024/05/31/20 24 [id number] Ambulatory Building:PT H_PML [facility] 05/28/2024/05/28/20 24 [id number] Ambulatory Building:PT H_PML [facility] 05/28/2024/05/28/20 24 [id number] Ambulatory Buildin [address] [facility] Amb[facility] 05/24/2024 [id number] Kiarra Min Ambulatory [facility] g:FT LAB [facility] 05/24/2024/05/24/20 24 [id number] Kiarra Min Ambulatory [facility]:FT LAB [facility] 05/24/2024/05/24/20 24 [id number] Ambulatory EU [place]:EU [place]: Exam 1 [facility] 04/03/2024/04/03/20 24 [id number] Ambulatory Buildin [address] [facility] 03/01/2024/03/01/20 24 [id number] Ambulatory EU [place]:EU [place]: Exam 2 [facility] 02/23/2024 [id number] Kiarra Min Ambulatory [facility]:FT LAB [facility] 02/23/2024/02/23/20 24 [id number] Kiarra Mni Ambulatory [facility]:FT LAB [facility] 02/23/2024/02/23/20 24 [id number] Kiarra Min Ambulatory [facility]:FT LAB [facility] 02/23/2024/02/23/20 24 [id number] Ambulatory EU [place]:EU [place]: Exam 1 [facility] 01/25/2024 [id number] Ambulatory EU [place]EU [place] [facility] 01/19/2024/01/19/20 24 [id number] Ambulatory Buildin [address] [facility] 01/02/2024/01/02/20 24 [id number] Ambulatory Buildin [address] [facility] Amb[facility] PAYERS ENCOUNTER GUARANTOR PAYER SUBSCRIBER SOURCE 11/26/2024 Jorgito PrietoMukeshOB: [place] [address] Primary Insurance:[employer] Benefit Systems IncPolicy Number: Effective Date:[id number] Name:GABRIEL Delacruz [id number], [place] [address]VR: Jorgito WingefinDOB: [id number] [place] [address] [facility] 11/12/2024 Jorgito Cee MaciejkashifinDOB: [place] [address] Primary Insurance:[employer] Benefit Systems IncPolicy Number: Effective Date:[id number] Name:GABRIEL Delacruz [address], [place] [address]PO: Jorgito Cee MaciejefinDOB: [id number] [place] [address] [facility] 10/15/2024 Jorgito Cee MaciejkashifinDOB: [place] [address] Primary Insurance:[employer] Benef[employer] Systems IncPolicy Number: Effective Date:2367-92-09Jfhv Name:GABRIEL Delacruz [id number], [place] [address]TQ: Jorgito Cee MaciejefinDOB: [id number] [place] [address] [facility] 10/04/2024 JORGITO MACIEJEFINDOB: [address]: ~~(4 1 (HP) Primary Insurance:[employer] Insurance CompanyPolicy Number: [id number] Date:2024-10-04 JORGITO LENNON [facility] 09/17/2024 Jorgito WingefinDOB: [place] [address] Primary Insurance:[employer] Benef[employer] Systems IncPolicy Number: Effective Date:0048-57-49Kazn Name:GABRIEL Delacruz [address], [place] [address]UY: Jorgito Cee MaciejefinDOB: [id number] [address] [facility] [address] [facility] 09/13/2024 JORGITO WINGEFINDOB: [address] [place], [place] [address]Muk: (HP) Primary Insurance:ALLIED BENEFIT SYSTEMSPolicy Number: [id number] Date:2024-02-12 JORGITO WINGEFINDOB: [id number] [place], [place] [address]Pmd: (HP) (WP) [facility] 08/20/2024 Jorgito WingefinDOB: E [facility] [address] Primary Insurance:Self PayPolicy Number: Effective Date:6498-50-45Hmqd Name:SP Jorgito WingefinDOB: [id number] [address] [facility] [address] [facility] 07/27/2024 JORGITO BAHENA MACIEJEFINDOB: [place], [place] [address]Lnm: (HP) Primary Insurance:ALLIED BENEFIT SYSTEMSPolicy Number: [id number] Date:2024-02-12 JORGITO WINGEFINDOB: [id number] [place], [place] [address]Til: (HP) (WP) [facility] 05/31/2024 JORGITO WINGEFINDOB: [address] [place], [place] [address]Fzh: (HP) Primary Insurance:ALLIED BENEFIT SYSTEMSPolicy Number: [id number] Date:2024-02-12 JORGITO BAHENA MACIEJEFINDOB: [id number] [address] [facility] [place], [place] [address]Nil: (HP) (WP) [facility] 05/28/2024 JORGITO WINGEFINDOB: [facility] [place] [place] [address]Ila: (HP) Primary Insurance:ALLIED BENEFIT SYSTEMSPolicy Number: [id number] Date:2024-02-12 JORGITO BAHENA MACIEJEFINDOB: [id number] [facility] [place] [address]Ybh: (HP) (WP) [facility] 05/28/2024 JORGITO BAHENA JEFINDOB: E [facility] [place] [address]Kpb: (HP) Primary Insurance:ALLIED BENEFIT SYSTEMSPolicy Number: [id number] Date:2024-02-12 JORGITO BAHENA MACIEJEFINDOB: [id number] [address] [facility] [place], [place] [address]Mqb: (HP) (WP) [facility] 05/24/2024 JORGITO JEFINDOB: [address]: ~~(4 1 (HP) Primary Insurance:AETNAPolicy Number: [id number] Date:[id number], [place] [address]PO: JORGITO LENNON [facility] 05/24/2024 JORGITO PRIETOINDOB: [address]: ~~(4 1 (HP) Primary Insurance:AETNAPolicy Number: [id number] Date:1868-47-05[address], [place] [address]OI: JORGITO LENNON [facility] 04/03/2024 JORGITO CENTENOOB: E [facility] [place], [place] [address]Mju: (HP) Primary Insurance:CIGNAPolicy Number: [id number] Date:2023-06-13 JORGITO CENTENOOB: [id number] [address] [facility] [place], [place] [address]Qqa: (WP) [facility] 03/01/2024 JORGITO PRIETOINDOB: [address]: ~~(4 1 (HP) Primary Insurance:[employer] Insurance CompanyPolicy Number: [id number] Date:2024-03-06 JORGITO LENNON [facility] 02/23/2024 JORGITO CENTENOOB: [address]: ~~(4 1 (HP) Primary Insurance:AETNAPolicy Number: [id number] Date:6201-49-29OS [facility] [address], [place] [address]YV: JORGITO LENNON [facility] 02/23/2024 JORGITO CENTENOOB: [id number] [address]: ~~(4 1 (HP) Primary Insurance:HTPcellaneApps & Zerts Insurance CompanyPolicy Number: [id number] Date:2024-03-06 JORGITO LENNON [facility] 02/23/2024 JORGITO CENTENOOB: [address]: ~~(4 1 (HP) Primary Insurance:HTPcellaneApps & Zerts Insurance CompanyPolicy Number: [id number] Date:2024-03-06 JORGITO LENNON [facility] 01/19/2024 JORGITO CONN: [place] [address]Tul: () Primary Insurance:[facility] HOSPITALNAPolicy Number: [id number] Date:2023-06-13 JORGITO BAHENA JEFINDOB: [id number] [place], [place] [address]Bww: () [facility] 01/02/2024 JORGITO BAHENA JEFINDOB: [address] [place], [place] [address]Umv: () Primary Insurance:CIGNAPolicy Number: [id number] Date:2023-06-13 JORGITO BAHENA JEFINDOB: [id number] [place] [address]Ohl: () [facility]
[2024-12-17 07:03] VITALS: BP 134/94; PULSE 112; TEMP 36.3; O2SAT 96
[2024-12-17 07:55] VITALS: BP 121/71; BP 131/89; PULSE 100; PULSE 102; O2SAT 96; O2SAT 97
[2024-12-17] MEDS: METHYLPREDNISOLONE ACETATE 40 MG/ML VIAL 80 MG INJ (08:00)
[2024-12-17] MEDS: BUPIVACAINE HCL 0.25% PF 25 MG/10 ML VIAL 4 ML INJ (08:00)
[2024-12-17] MEDS: LIDOCAINE HCL 2% 400 MG/20 ML MDV 16 ML INJ (08:00)
--- NOTE | 2024-12-17 08:10 | P.ON_ITS ---
Date of procedure: 12/17/24 Pre-op diagnosis: Pain due to lumbar spondylosis without myelopathy Post-op diagnosis: same as pre-op Procedure: Procedure: Bilateral L4-5, L5-S1 radiofrequency ablation Medications: Bupivacaine 0.25% 4cc, depomedrol 80mg, lidocaine 2% 6cc The patient was seen and examined in the preoperative holding area.? The site was marked.? Written informed consent was obtained and placed on the chart.? The patient was brought to the medical procedure unit and placed in the prone position.? A timeout was completed verifying correct patient, procedure, positioning, and special requirements.? The skin overlying the target points, the designated medial branch, were prepped and draped in the usual sterile fashion.? The target point was achieved with a 20-gauge 15 cm with a 10 mm curved active tip radiofrequency cannula under direct fluoroscopic visualizati on.? The needle was inserted at level L4 on the right side. Needle tip position was confirmed with lateral fluoroscopic position.? Motor stimulation was carried out at 2 Hz up to 5 volts with the absence of extremity activity.? This was repeated at level L5, S1 on right side.?? Sensory stimulation was carried out.? Concordant pain was realized at the above- mentioned sites.? Then radiofrequency lesioning was carried out times 90 seconds at 80 degrees times 2 lesions at each level.? The radiofrequency probe was removed prior to cannula removal.? The above-mentioned injectate was placed in 1 mL increments.? The needle was removed. The same procedure, with the same steps, was then completed on the left side at the same levels. Insertion sites were covered.? The patient was taken to the postoperative recovery area and monitored for an appropriate length of time before being found suitable for discharge in the company of a responsible adult. Anesthesia: Local Surgeon: Chrissy Conway Pathology: none sent Condition: stable Disposition: no change
== END 2024-12-17 08:21 | disposition home or self-care (01) ==
LOC: SURGOUT 06:54
PROVIDERS: PCP Family Medicine; Visit Provider Anesthesiology
DX: M47.816 Spondylosis without myelopathy or radiculopathy, lumbar region (principal); M54.50 Low back pain, unspecified
CPT/HCPCS: 64635; 64636; J0665; J1010

== ENCOUNTER 2025-01-17 09:01 | Outpatient (OUT) | payer OTHER, SELFPAY ==
--- OUTSIDE RECORDS SUMMARY | 2025-01-14 16:30 | XMS_ITS | Encounter Summary ---
Author Organization [facility] tem Address [id number] [address] [place] [address] Care Team Providers Care Fruit Or Nut Crops Farm Manager Name Role Phone Shahbaz Monk DO Primary Care Provider + [phone] Reason for Visit * Reason Comments recheck Encounter Details Date Type Department Care Team ([facility] st Contact Info) Description 01/14/2025 4:30 PM EDT Office Visit [facility] Internal Medicine - Family Medicine [address] [place] [address] Shahbaz Monk DO [address], [facility] [place] [address] Class 2 severe obesity due to excess calories with serious comorbidity and body mass index (BMI) of 36.0 to 36.9 in adult ([facility]) (Primary Dx); Lumbar disc prolapse with compression radiculopathy; Sleep apnea, unspecified type Social History Tobacco Use Types Packs/Day Years Used Date Smoking Tobacco: Former Cigarettes 0.5 33.2 1 990 - 09/11/2022 Smokeless Tobacco: Never Alcohol Use Standard Drinks/Week Comments Not Currently 0 (1 standard drink = 0.6 oz pure alcohol) Occasional 6 pack once a month [facility] Utilities Answer Date Recorded In the past 12 months has [employer], gas, oil, or water [employer] threatened to shut off services in your [...] often do you attend chur ch or mormon services? Never 03/07/2023 Do you belong to [...] PHQ-2 Answer Date Recorded Total Score 0 01/14/2025 [facility] of Occupat ional Health - Occupational [...] Recorded Do you need help finding a [facility] career center and/or a training program? No 03/07/2023 Hunger Screening Answer Date Recorded Within the past 12 months we worried whether our food would run out before we got money to buy more. Never True 01/14/2025 Within the past 12 months th e food we bought just didn't last and we didn't have money to get more. Never True 01/14/2025 Purpose - Life Answer Date Recorded I have a purpose and direction in my life. Stron gly Agree 03/07/2023 Sex and Gender Information Value Date Recorded Sex Assigned at Not on file Legal Sex Male 12:07 PM EDT Gender Identity Not on file Sexual Orientation Not on file documented as of this encounter Last Filed Vital Signs Vital Sign Reading Time Taken Comments Blood Pressure 128/84 01/14/2025 4:25 PM EDT Pulse 124 01/14/2025 4:25 PM EDT Temperature 37.4 C (99.4 F) 01/14/2025 4:25 PM EDT Respiratory Rate 18 01/14/2025 4:25 PM EDT Oxygen Saturation 98% 01/14/2025 4:25 PM EDT Inhaled Oxygen Concentration - - Weight 99.3 kg (219 lb) 01/14/2025 4:25 PM EDT Height 166.1 cm (5' 5.39 ) 01/14/2025 4:25 PM ED T Body Mass Index 36.01 01/14/2025 4:25 PM EDT documented in this encounter Progress Notes * Shahbaz Monk, - 01/14/2025 4:30 PM EDT Subjective Patient ID: Jorgito Harry is a 49 y.o. male. Jorgito presents for weight recheck. He is on compounded semaglutide and has a couple refills left. Hecontinues to slowly lose weight. He is on a reduced calorie diet. He cannot really exercise due to his chronic back pain. He is seeing pain management and is having another injection done but the last one didn't last very long. He is taking meloxicam daily and occasionally uses hydrocodone when thepain gets bad. He doesn't have any side effects. He is wondering what his chances are to get disability, when should he consider surgery. He was told in the past that he could have surgery but shouldtry pain management and PM says he isn't at that point to need surgery. He wants to know my opinion. The following portions of the patient's history were reviewed and updated as appropriate: allergies, current medications, past family history, past medical history, past social history, past surgicalhistory, problem list, and medication reconciliation was completed including current medication andpost discharge medication. Review of Systems Gastrointestinal: Negative. Genitourinary: Negative. Musculoskeletal: Positive for arthralgias, back pain and gait problem. Objective Physical Exam Vitals reviewed. Constitutional: General: He is not in acute distress. Appearance: He is obese. He is not ill-appearing. Neurological: Mental Status: He is alert and oriented to person, place, and time. Psychiatric: Attention and Perception: Attention and perception normal. Mood and Affect: Mood and affect normal. Speech: Speech normal. Behavior: Behavior normal. Behavior is cooperative. Thought Content: Thought content normal. Cognition and Memory: Cognition normal. Judgment: Judgment normal. Assessment/Plan Jorgito was seen today for recheck. Diagnoses and all orders for this visit: Class 2 severe obesity due to excess calories with serious comorbidity and body mass index (BMI) of36.0 to 36.9 in adult ([facility]) He is obese. He continues to lose weight. Continue semaglutide. Recommended he check his formulary to see what medications might be covered. He does has sleep apnea so Zepbound may be covered. Lumbar disc prolapse with compression radiculopathy Follow up with pain management. He can apply for disability but would likely need to to maximal medical improvement and that may include surgery but I don't make that decision. He should continue pain management. He can get a 2nd opinion from another neurosurgeon but would need an updated MRI. Continue current regimen. Based on most recent MRI he should continue pain management. Sleep apnea, unspecified type He doesn't use a CPAP but may qualify for Zepbound. Other orders - magnesium oxide (MAGOX) 400 mg tablet; Take 1 tablet (400 mg total) by mouth in the morning. documented in this encounter Plan of Treatment Upcoming Encounters Date Type Department Care Team (Late st Contact Info) Description 05/21/2025 4:15 PM EST Office Visit [facility] Internal Medicine - Family Medicine [address] [place] [address] Shahbaz Monk DO [address] [facility] [place] [address] documented as of this encounter Visit Diagnoses Diagnosis Class 2 severe obesity due to excess calories with serious comorbidity and body mass index (BMI) of 36.0 to 36.9 in adult ([facility])- Primary Lumbar disc prolapse with compression radiculopathy Displacement of lumbar intervertebral disc without myelopathy Sleep apnea, unspecified type documented in this encounter Additional Health Concerns Assessment Noted Time PHQ-9 Depression Total Score: 0 01/15/20 25 4:24 PM EDT documented as of this encounter Care Teams Fruit Or Nut Crops Farm Manager Relationship Specialty Start Date End Date Shahbaz Monk DO [address] [facility] [place] [address] PCP - General Family Medicine 02/11/22 documented as of this encounter
--- NOTE | 2025-01-17 09:04 | PM.CN ---
Consult Note: HPI Data of Consult Patient: known to practice within the last 3 years Requesting Physician: Evelyn Landa NP Primary Care Provider: OSMAR MANCINI Consult Narrative Reason for consult: low back pain Narrative: 49yom who presents for evaluation. longstanding low back pain. previously underwent injection therapies. uses pain meds as needed, with limited benefit. has engaged in >6 weeks of provider directed home exercises, without benefit. denies adverse med side effects. recently underwent lumbar MRI which is consistent with multilevel disc bulge and spondylotic changes. recently underwent bilateral L4-5 L5-S1 facet RFA for facet mediated low back pain which remains in the healing phase. has noted increased burning and intermittent jolts . pain today 4/10 increasing to 8/10. cc:: CC: Evelyn Landa NP [facility] Medical History GERD (gastroesophageal reflux disease) ?K21.9 - Gastro-esophageal reflux disease without esophagitis (ICD-10) OAB (overactive bladder) ?N32.81 - Overactive bladder (ICD-10) Hyperlipidemia ?E78.5 - Hyperlipidemia, unspecified (ICD-10) Prediabetes ?R73.03 - Prediabetes (ICD-10) HTN (hypertension) ?I10 - Essential (primary) hypertension (ICD-10) Cholelithiasis ?K80.20 - Calculus of gallbladder without cholecystitis without obstruction (ICD-10) Degenerative disc disease, lumbar ?M51.36 - Other intervertebral disc degeneration, lumbar region (ICD-10) Surgical History History of hip replacement ?Z96.649 - Presence of unspecified artificial hip joint (ICD-10) Family History Father Family history of CHF (congestive heart failure) Family history of COPD (chronic obstructive pulmonary disease) Family history of hypertension Family history of stroke Grandfather Family history of cancer Family history of hypertension Grandfather Family history of cancer Brother Family history of diabetes mellitus Family history of hypertension Social History Within the past year, how often did you have a drink containing alcohol: 2-4 times a month Within the past year, how many standard drinks containing alcohol did you have on a typical day: 1 or 2 Within the past year, how often did you have six or more drinks on one occasion: never Total score: 0 Score interpretation: A score less than 4 is consistent with normal alcohol consumption. Smoking status: Current every day smoker Do you use any of these nicotine containing products: vaping products Non-prescribed substance use: denies use Previous occupational history: [employer] Highest level of school completed/degree received: Associate degree: occupational, technical, vocational program Little interest or pleasure in doing things: not at all Feeling down, depressed, or hopeless: not at all Feel stressed/tense/nervous/anxious/difficulty sleeping: not at all Meds Home Medications and Allergies Home Medications ?Medication ?Instructions ?Recorded ?Confirmed ?Type atorvastatin 20 mg tablet 20 mg PO DAILY 08/22/23 12/17/24 History fenofibrate 160 mg tablet 160 mg PO DAILY 08/22/23 12/17/24 History metoprolol succinate 50 mg 50 mg PO DAILY 08/22/23 12/17/24 History tablet,extended release 24 hr Held on 08/24/23. Instructions: Until follow up with PCP to discuss omeprazole 20 mg capsule,delayed 20 mg PO DAILY 08/22/23 12/17/24 History release oxybutynin chloride 5 mg tablet 5 mg PO DAILY 08/22/23 12/17/24 History magnesium oxide 400 mg (241.3 mg 400 mg PO DAILY 08/20/24 12/17/24 History magnesium) tablet semaglutide 2 mg/dose (8 mg/3 mL) 2 mg subcut QWEEK 08/20/24 12/17/24 History subcutaneous pen injector tamsulosin 0.4 mg capsule 0.4 mg PO Q24H 08/20/24 12/17/24 History meloxicam 7.5 mg tablet 7.5 mg 09/17/24 History hydrocodone 5 mg-acetaminophen 325 1 tab PO DAILY PRN pain #30 tabs 11/30/24 12/17/24 Rx mg tablet Allergies Allergy/AdvReac Type Severity Reaction Status Date / Time No Known Drug Allergies Allergy Verified 12/17/24 07:06 Exam Constitutional Documenting provider has reviewed patient's vital signs: yes Common normals: no apparent distress, oriented x3, healthy appearing, alert and well nourished General appearance: cooperative HENMT Common normals: normocephalic, hearing grossly normal bilaterally and moist oral mucous membranes Head and scalp: normocephalic Eye Common normals: PERRL Pupil: PERRL Neck & C-Spine Common normals: full ROM General: normal visual inspection Chest Common normals: inspection of chest normal Respiratory Common normals: normal respiratory effort, no retractions and no use of accessory muscles Back & Pelvis Lumbar spine/lower back: pain with ROM, lumbar spinal tenderness Lumbar spinal tenderness location: L3, L4 and L5, straight leg raise positive right and straight leg raise positive left Sacroiliac joints: SI joints normal Other: bilateral negative elizabeth(patricks), gaenslens, thigh thrust, compression test strength 5/5 in BLE decreased sensation bilateral L5/S1 intermittent cramping to BLE with standing/walking/lying flat Extremity Common normals: normal to inspection and full ROM Neuro Common normals: oriented x3 Sensorium/orientation: alert Psych Common normals: mental status grossly normal, thought process normal, cooperative, affect normal, speech normal and activity/motor behavior normal Speech: normal speech Thought process: normal thought process Results Additional Findings Additional findings: If on a controlled substance or opioids, I have checked an OAR[place] report on this patient and there are no aberrancies noted in the prescribing history.??If on a controlled substance or opioid a drug screen was completed and reviewed within the last year, and if there has not been a drug screen completed we ordered one today to monitor higher risk, state monitored pain medication use. As part of providing excellent, safe, comprehensive care, the following was completed at our patient's visit: 1. A medication reconciliation and review to ensure accurate knowledge of current/active medications, including asking our patients to inform us about any [id number] medications or herbal remedies/nutritional supplements/alternative remedies. 2. A review to specifically ensure our patients have had annual screening for screening for depression, screening for tobacco use, and screening for unhealthy alcohol use. For concerning screenings had a discussion with the patient, provided patient education, and recommended follow-up with primary care provider when appropriate. If patient noted with a risk of falling, they received education on strength, gait, and balance training to prevent future risk of falling. Portions of this note may have been carried over from the previous visit and updated as appropriate. Please note this office utilizes paper charting in addition to the electronic medical record. A list of current medications, vitals, and PMH is available there as the clinical staff outside of myself do not have access to [facility] charting during the clinic day operations. As part of providing quality comprehensive care the current medications, vitals, and PMH were reviewed in the paper chart. Assessment and Plan Assessment and Plan (1) Lumbar stenosis with neurogenic claudication: Assessment and Plan: The patient has had over 3 months of moderate to severe low back pain with functional impairment and inadequate response to conservative care including NSAIDS (unless there are contraindication such as concurrent blood thinners), multiple oral or topical pain medications, and home exercise program/physical therapy.? Patient has completed >6 weeks of guided home exercise program and/or formal physical therapy program without relief of their symptoms.? The Oswestry Disability Index was completed, and the patient scored a 40%.? The patient noted the following:?? moderate to severe pain with ADLs, lifting, twisting, social life, travel (2) Lumbar spondylosis: (3) Chronic use of opiate drug for therapeutic purpose: Plan bilateral L5-S1 TFESI under fluoroscopy, prior left L4-5 L5-S1 TFESI provided at least 50% improvement for 3 months continue current medications continue stretching as tolerated f/u 2 weeks after injection
--- OUTSIDE RECORDS SUMMARY | 2025-01-17 09:04 | XMS_ITS | Encounter Summary ---
Author Organization [employer] tem Address [id number] [address] [place] [address] Care Team Providers Care Datacap Developer Name Role Phone Shahbaz Monk DO Primary Care Provider [phone] Encounter Details Date Type Department Care Team ([facility] Contact Info) Description 03/02/[address] [facility] [address] [place] [phone] External, Scanning Provider Social History Tobacco Use Types Packs/Day Years Used Date Smoking Tobacco: Every Day Cigarettes 0.5 35.6 Started: 1991 Smokeless Tobacco: Never Alcohol Use [...] Upcoming Encounters Date Type Department Care Team ([facility] Contact Info) Description 05/21/2025 4:15 PM EST Office Visit [facility] Physicians Internal Medicine - Family Medicine [address] [place] [phone] Shahbaz Monk DO [address], [place] [address] documented as of this encounter Procedures Procedure [...] BLOOD ORDERABLES Final Result Performing Organization Address City/State/[facility] Co de Phone Number MANUALLY TRANSCRIBED RESULTS documented in this encounter Visit Diagnoses Not on filedocumented in this encounter Care Teams Datacap Developer Relationship Specialty Start Date End Date Shahbaz Monk DO [address] [place] [address] PCP - General Family Medicine 02/11/22 documented as of this encounter
--- OUTSIDE RECORDS SUMMARY | 2025-01-17 09:04 | XMS_ITS | Encounter Summary ---
Author Organization [employer] tem Address [id number] [address] [place] [address] Care Team Providers Care Web Retailer Name Role Phone Shahbaz Monk Primary Care Provider [phone] Encounter Details Date Type Department Care Team (Latest Contact Info) Description 01/12/2025 Travel Social History Tobacco Use Types Packs/Day Years Used Date Smoking Tobacco: Former Cigarettes 0.5 33.2 1 990 - 09/11/2022 Smokeless Tobacco: Never Alcohol Use Standard Drinks/Week Comments Not Currently 0 (1 standard drink = 0.6 oz pure alcohol) Occasional 6 pack once a month [facility] Utilities Answer Date Recorded In the past 12 months has th e electric, gas, oil, or water company [...] any clubs o r organizations such as evangelical groups, unions, fraternal or athletic groups, or [...] PHQ-2 Answer Date Recorded Total Score 0 12/24/2024 [facility] of Occupat ional Health - Occupational Stress [...] got money to buy more. Never True 12/24/2024 Within the past 12 months th e food we bought just didn't last and we didn't have money to get more. Never True 12/24/2024 Purpose - Life Answer Date Recorded I [...] - Family Medicine [address] [place] [address] Shahbaz Monk DO [address] [facility] [address] documented as of this encounter Visit Diagnoses Not on filedocumented in this encounter Additional Health Concerns Assessment Noted Time PHQ-9 Depression Total Score: 0 12/25/19 25 4:58 PM EDT documented as of this encounter Care Teams Web Retailer Relationship Specialty Start Date End Date Shahbaz Monk DO [address] [facility] [address] PCP - General Family Medicine 02/11/22 documented as of this encounter
--- OUTSIDE RECORDS SUMMARY | 2025-01-17 09:04 | XMS_ITS | Encounter Summary ---
Author Organization [facility] Sys tem Address [id number] [address] [place] [address] Care Team Providers Care Restaurant Shift Leader Name Role Phone SandhyaShahbaz gillespie Primary Care Provider + [phone] Encounter Details Date Type Department Care Team (Late st Contact Info) Description 08/21/2024 Orders Only [facility] - Family Medicine [address] [place] [address] Kath Irvin CMA Lumbar disc prolapse with compression radiculopathy Social History Tobacco Use Types Packs/Day Years Used Date Smoking Tobacco: Former Cigarettes 0.5 33.2 1 990 - 09/11/2022 Smokeless Tobacco: Never Alcohol Use Standard Drinks/Week Comments Not Currently 0 (1 standard drink = 0.6 oz pure alcohol) Occasional 6 pack once a month [facility] Utilities Answer Date Recorded In the past 12 months has [facility] electric, gas, oil, or water [...] often do you attend chur ch or yarsanism services? Never 03/07/2023 Do you belong to any clubs o r organizations such as mormon groups, unions, fraternal or athletic groups, or [...] Answer Date Recorded Total Score 0 05/28/2024 [facility] of Occupat ional Health - Occupational [...] Medicine - Family Medicine [address] [place] [address] Shahbaz Monk DO [address] [facility], [facility] [place] [address] documented as of this encounter Procedures Procedure [...] as of this encounter Care Teams Restaurant Shift Leader Relationship Specialty Start Date End Date Shahbaz Monk DO [address] [place], [facility] [place] [address] PCP - General Family Medicine 02/11/22 documented as of this encounter
--- OUTSIDE RECORDS SUMMARY | 2025-01-17 09:04 | XMS_ITS | Encounter Summary ---
Author Organization [facility] [employer] Sys tem Address [id number] [address] [place] [address] Care Team Providers Care Emergency Preparedness Manager Name Role Phone Shahbaz Monk Primary Care Provider + [phone] Encounter Details Date Type Department Care Team (Late st Contact Info) Description 02/27/2024 Orders Only [facility] - Family Medicine [address] [place] [address] Ref Prov, [place] [address] Social History Tobacco Use Types Packs/Day Years Used Date Smoking Tobacco: Former Cigarettes 0.5 33.2 1 990 - 09/11/2022 Smokeless Tobacco: Never Alcohol Use Standard Drinks/Week Comments Not Currently 0 (1 standard drink = 0.6 oz pure alcohol) Occasional 6 pack once a month [facility] Utilities Answer Date Recorded In the past 12 months has [facility] electric, gas, oil, or water [...] often do you attend chur ch or buddhist services? Never 03/07/2023 Do you belong to any clubs o r organizations such as christianity groups, unions, fraternal or athletic groups, or [...] Answer Date Recorded Total Score 0 01/02/2024 [facility] of Occupat ional Health [...] Recorded Do you need help finding a [facility] career center and/or a training [...] Medicine - Family Medicine [address] [place] [address] Shahbaz Monk DO [address], [facility] [place] [address] documented as of this encounter Procedures Procedure [...] documented as of this encounter Care Teams Emergency Preparedness Manager Relationship Specialty Start Date End Date Shahbaz Monk DO [address] [facility] [place] [address] PCP - General Family Medicine 02/11/22 documented as of this encounter
--- OUTSIDE RECORDS SUMMARY | 2025-01-17 09:04 | XMS_ITS | Encounter Summary ---
Author Organization [facility] [employer] Sys tem Address [id number] [address] [place] [address] Care Team Providers Care Integration Software Engineer Name Role Phone NatyShahbaz quintero Molina PERKINS Primary Care Provider + [phone] Encounter Details Date Type Department Care Team (Late st Contact Info) Description 02/24/2024 Orders Only [facility] - Family Medicine [address] [place] [address] Kath Irvin CMA Right ureteral stone Social History Tobacco Use Types Packs/Day Years Used Date Smoking Tobacco: Former Cigarettes 0.5 33.2 1 990 - 09/11/2022 Smokeless Tobacco: Never Alcohol Use Standard Drinks/Week Comments Not Currently 0 (1 standard drink = 0.6 oz pure alcohol) Occasional 6 pack once a month [facility] Utilities Answer Date Recorded In [...] often do you attend chur ch or episcopalian services? Never 03/07/2023 Do you belong to any clubs o r organizations such as mandaeism groups, unions, fraternal or athletic groups, or [...] Answer Date Recorded Total Score 0 01/02/2024 [facility] of Occupat ional Health - Occupational Stress [...] - Family Medicine [address] [place] [address] Shahbaz Monk DO [address], [place] [address] documented as of this encounter Procedures Procedure Name Priority Date/Time Associated Diagnosis Comments AMB REFERRAL TO UROLOGY Routine 02/24/2024 8:42 AM EDT Right ureteral stone URINE CULTURE Routine 02/23/2024 2:01 PM EDT URINALYSIS Routine 02/23/2024 1:40 PM EDT documented in this encounter Results * Ambulatory referral to Urology (02/24/2024 8:42 AM EDT) us Itzel White APRN-POT RELINER OUTPATIENT REFERRAL RICO CRUZ Final Result Performing Organization Address [facility] Co de Phone Number MANUALLY TRANSCRIBED RESULTS * Urine Culture (02/23/2024 2:01 PM EDT) Urine us Not In System Ref Prov MICROBIOLOGY - GENERAL OR DERABLES Final Result Performing Organization Address City/[facility] Co de Phone Number MANUALLY [...] documented as of this encounter Care Teams Integration Software Engineer Relationship Specialty Start Date End Date Shahbaz Monk DO [address], [place] [address] PCP - General Family Medicine 02/11/22 documented as of this encounter
--- OUTSIDE RECORDS SUMMARY | 2025-01-17 09:04 | XMS_ITS | Encounter Summary ---
Author Organization [employer] s tem Address [id number] [address] [place] [address] Care Team Providers Care Kosher Butcher Name Role Phone Shahbaz Monk DO Primary Care Provider + [phone] Reason for Visit * Reason Onset Date Comments Med Refill 06/22/2022 Encounter Details Date Type Department Care Team (Late Contact Info) Description 06/22/2022 Refill [facility] - Family Medicine [address] [place] [address] Kath Irvin CMA Degeneration of lumbar intervertebral [...] Upcoming Encounters Date Type Department Care Team ([facility] Contact Info) Description 05/21/2025 4:15 PM EST Office Visit [facility] - Family Medicine [address] [place] [address] Shahbaz Monk DO [address] [place] [address] documented as of this encounter Visit Diagnoses Diagnosis Degeneration of lumbar intervertebral disc Degeneration of lumbar or lumbosacral intervertebral disc documented in this encounter Additional Health Concerns Assessment Noted Time PHQ-9 Depression Total Score: 2 05/03/20 22 3:45 PM EST documented as of this encounter Care Teams Kosher Butcher Relationship Specialty Start Date End Date Shahbaz Monk DO [address], [facility] [place] [address] PCP - General Family Medicine 02/11/22 documented as of this encounter
--- OUTSIDE RECORDS SUMMARY | 2025-01-17 09:04 | XMS_ITS | Encounter Summary ---
Author Organization [facility] [employer] Sys tem Address [id number] [address] [place] [address] Care Team Providers Care Marketing And Promotions Manager Name Role Phone Shahbaz Monk DO Primary Care Provider + [phone] Reason for Visit * Reason Comments Med Refill Encounter Details Date Type Department Care Team ([facility] Contact Info) Description 10/27/2022 Refill [facility] - Family Medicine [address] [place] [address] Shahbaz Monk DO [address], [facility] [place] [address] Essential (primary) hypertension; Spondylolisthesis, lumbar region Social [...] Medicine - Family Medicine [address] [place] [address] Shahbaz Monk DO [address] [facility] [place] [address] documented as of this encounter Visit Diagnoses Diagnosis Essential (primary) hypertension Unspecified essential hypertension Spondylolisthesis, lumbar region documented in this encounter Additional Health Concerns Assessment Noted Time PHQ-9 Depression Total Score: 0 08/17/19 23 4:45 PM EST documented as of this encounter Care Teams Marketing And Promotions Manager Relationship Specialty Start Date End Date Shahbaz Monk DO [address] [facility] [place] [address] PCP - General Family Medicine 02/11/22 documented as of this encounter
--- OUTSIDE RECORDS SUMMARY | 2025-01-17 09:04 | XMS_ITS | Encounter Summary ---
Author Organization [facility] [employer] Sys tem Address [facility] [place][id number] [address] [place] [address] Care Team Providers Care Bender Machine Name Role Phone Shahbaz Monk Primary Care Provider + [phone] Encounter Details Date Type Department Care Team (Late st Contact Info) Description 12/03/2022 Documentation [facility] - Family Medicine [address] [place] [phone] Kaila Beck CMA Social History Tobacco Use [...] Medicine [address] [place] [address] Shahbaz Monk DO [address] [facility] [place] [address] documented as of this encounter Visit Diagnoses Not on filedocumented in this encounter Additional Health Concerns Assessment Noted Time PHQ-9 Depression Total Score: 0 12/04/19 23 11:17 AM EDT documented as of this encounter Care Teams Bender Machine Relationship Specialty Start Date End Date Shahbaz Monk DO [address] [facility] [place] [address] PCP - General Family Medicine 02/11/22 documented as of this encounter
--- OUTSIDE RECORDS SUMMARY | 2025-01-17 09:04 | XMS_ITS | Encounter Summary ---
Author Organization [facility] [employer] Sys tem Address [facility]-[id number] [address] [place] [address] Care Team Providers Care Finance Business Manager Name Role Phone Shahbaz Monk Primary Care Provider + [phone] Encounter Details Date Type Department Care Team (Late st Contact Info) Description 03/06/2024 Orders Only [facility] - Family Medicine [address] [place] [address] Ref Prov, [place] [address] Social History Tobacco Use Types Packs/Day Years Used Date Smoking Tobacco: Former Cigarettes 0.5 33.2 1 990 - 09/11/2022 Smokeless Tobacco: Never Alcohol Use Standard Drinks/Week Comments Not Currently 0 (1 standard drink = 0.6 oz pure alcohol) Occasional 6 pack once a month [facility] Utilities Answer Date Recorded In the past 12 months has [facility] electric, gas, oil, or water company [...] Answer Date Recorded Total Score 0 01/02/2024 [facility] of Occupat ional Health - Occupational Stress [...] - Family Medicine [address] [place] [address] Shahbaz Monk DO [address] [facility], [facility] [place] [address] documented as of this encounter Procedures Procedure [...] documented as of this encounter Care Teams Finance Business Manager Relationship Specialty Start Date End Date Shahbaz Monk DO [address] [facility] [place] [address] PCP - General Family Medicine 02/11/22 documented as of this encounter
--- OUTSIDE RECORDS SUMMARY | 2025-01-17 09:04 | XMS_ITS | Encounter Summary ---
Author Organization [facility] Address [id number] [address] [place] [address] Care Team Providers Care Senior Systems Architect Name Role Phone Shahbaz Monk DO Primary Care Provider +[phone] Encounter Details Date Type Department Care Team ([facility] st Contact Info) Description 05/17/2022 Telephone [facility] - Family Medicine [address] [place] [address] Roslyn Day MA Social History Tobacco Use [...] Medicine - Family Medicine [address] [place] [address] Shahbaz Monk DO [address] [facility] [place] [address] documented as of this encounter Visit Diagnoses Not on filedocumented in this encounter Additional Health Concerns Assessment Noted Time PHQ-9 Depression Total Score: 2 05/03/20 22 3:45 PM EST documented as of this encounter Care Teams Senior Systems Architect Relationship Specialty Start Date End Date Shahbaz Monk DO [address] [facility] [place] [place] [address] PCP - General Family Medicine 02/11/22 documented as of this encounter
--- OUTSIDE RECORDS SUMMARY | 2025-01-17 09:04 | XMS_ITS | Clinical Summary ---
Author Organization [facility] Address [address] [place] [address] Care Team Providers Care Toolroom Attendant Name Role Phone Unavailable Primary Care Provider [...]
--- OUTSIDE RECORDS SUMMARY | 2025-01-17 09:04 | XMS_ITS | Encounter Summary ---
Author Organization [facility] tem Address [facility]-[id number] [address] [place] [address] Care Team Providers Care Professor Of Food Biochemistry Name Role Phone Shahbaz Monk DO Primary Care Provider + [phone] Reason for Visit * Reason Onset Date Comments Med Refill 09/12/2023 Encounter Details Date Type Department Care Team (Late st Contact Info) Description 09/12/2023 Telephone [facility] Internal Medicine - Family Medicine [address] [place] [address] Shahbaz Monk DO [address], [facility] [place] [address] Med Refill Social History Tobacco Use Types Packs/Day Years Used Date Smoking Tobacco: Former Cigarettes 0.5 33.2 1 990 - 09/11/2022 Smokeless Tobacco: Never Alcohol Use Standard Drinks/Week Comments Not Currently 0 (1 standard drink = 0.6 oz pure alcohol) Occasional 6 pack once a month [employer] Utilities Answer Date Recorded In the past 12 months has [facility], gas, oil, or water [employer] threatened to shut off services in your [...] week 03/07/2023 How often do you attend [facility] or caodaism services? Never 03/07/2023 Do you belong to any clubs o r organizations such as mu-ism groups, unions, fraternal or athletic groups, or [...] Answer Date Recorded Total Score 0 08/30/2023 [facility] of Occupat ional Health - Occupational [...] Recorded Do you need help finding a [facility] career center and/or a training [...] called and needs his semaglutide sent to [facility], he also wanted to know if it [...] Medicine - Family Medicine [address] [place] [address] Shahbaz Monk DO [address] [place] [address] documented as of this encounter Visit Diagnoses Not on filedocumented in this encounter Additional Health Concerns Assessment Noted Time PHQ-9 Depression Total Score: 0 08/30/19 24 3:49 PM EDT documented as of this encounter Care Teams Professor Of Food Biochemistry Relationship Specialty Start Date End Date Shahbaz Monk DO [address], [place] [address] PCP - General Family Medicine 02/11/22 documented as of this encounter
--- OUTSIDE RECORDS SUMMARY | 2025-01-17 09:04 | XMS_ITS | Clinical Summary ---
Author Organization [facility] Address [address] [place] [address] Phone Care Team Providers Care Accessories Repairer Name Role Phone Yandel Garcia DO Primary Care Provider Social History Tobacco Use Types Packs/Day Years Used Date Smoking Tobacco: Never Assessed Sex and Gender Information Value Date Recorded Sex Assigned at Not on file Legal Sex Male 10:39 AM EST Gender Identity Not on file Sexual Orientation Not on file Plan of Treatment Not on file Care Teams Accessories Repairer Relationship Specialty Start Date End Date Yandel Garcia DO [address] [place] [address] PCP - General 10/24/17
--- OUTSIDE RECORDS SUMMARY | 2025-01-17 09:04 | XMS_ITS | Encounter Summary ---
Author Organization [employer] s tem Address [facility] [id number] [address] [place] [address] Care Team Providers Care Center Line Cutter Operator Name Role Phone Shahbaz Monk DO Primary Care Provider + [phone] Encounter Details Date Type Department Care Team (Late Contact Info) Description 02/25/2022 Orders Only [facility] - Family Medicine [address] [place] [address] Shahbaz Monk DO [address], [facility] [place] [address] Social History Tobacco Use Types Packs/Day Years [...] Upcoming Encounters Date Type Department Care Team ([facility] Contact Info) Description 05/21/2025 4:15 PM EST Office Visit [facility] - Family Medicine [address] [place] [address] Shahbaz Monk DO [address] [facility] [place] [address] documented as of this encounter Visit Diagnoses Not on filedocumented in this encounter Care Teams Center Line Cutter Operator Relationship Specialty Start Date End Date Shahbaz Monk DO [address] [facility] [place] [address] PCP - General Family Medicine 02/11/22 documented as of this encounter
--- OUTSIDE RECORDS SUMMARY | 2025-01-17 09:04 | XMS_ITS | Encounter Summary ---
Author Organization [facility] [employer] Sys tem Address [id number] [address] [place] [address] Care Team Providers Care Mathematical Scientist Name Role Phone Shahbaz Monk Primary Care Provider + [phone] Encounter Details Date Type Department Care Team (Late st Contact Info) Description 08/22/2023 Orders Only [facility] - Family Medicine [address] [place] [address] External, Scanning Provider Social History Tobacco Use Types Packs/Day Years Used Date Smoking Tobacco: Former Cigarettes 0.5 33.2 1 990 - 09/11/2022 Smokeless Tobacco: Never Alcohol Use Standard Drinks/Week Comments Yes 0 (1 standard drink = 0.6 oz pur e alcohol) Occasional 6 pack once a month [facility] Utilities Answer Date Recorded In the [...] often do you attend chur ch or faith services? Never 03/07/2023 Do you belong to [...] Answer Date Recorded Total Score 0 08/04/2023 [facility] of Occupat ional Health - Occupational [...] Recorded Do you need help finding a [facility] career center and/or a training program? [...] - Family Medicine [address] [place] [address] Shahbaz Monk DO [address], [place] [address] documented as of this encounter Procedures Procedure [...] documented as of this encounter Care Teams Mathematical Scientist Relationship Specialty Start Date End Date Shahbaz Monk DO [address], [place] [address] PCP - General Family Medicine 02/11/22 documented as of this encounter
--- OUTSIDE RECORDS SUMMARY | 2025-01-17 09:04 | XMS_ITS | Encounter Summary ---
Author Organization [facility] tem Address [facility] [place]-[id number] [address] [place] [address] Care Team Providers Care Movement Education Specialist Name Role Phone Shahbaz Monk DO Primary Care Provider + [phone] Encounter Details Date Type Department Care Team (Late st Contact Info) Description 08/09/2024 Orders Only [facility] - Family Medicine [address] [place] [address] Shahbaz Monk DO [address], [facility] [place] [address] Social History Tobacco Use Types Packs/Day Years Used Date Smoking Tobacco: Former Cigarettes 0.5 33.2 1 990 - 09/11/2022 Smokeless Tobacco: Never Alcohol Use Standard Drinks/Week Comments Not Currently 0 (1 standard drink = 0.6 oz pure alcohol) Occasional 6 pack once a month [facility] Utilities Answer Date Recorded In the past 12 months has [employer], or water [employer] threatened to shut off services in your [...] often do you attend chur ch or nondenominational services? Never 03/07/2023 Do you belong to [...] Answer Date Recorded Total Score 0 05/28/2024 [facility] of Occupat ional [...] - Family Medicine [address] [place] [address] Shahbaz Monk DO [address] [facility] [place] [address] documented as of this encounter Visit Diagnoses Not on filedocumented in this encounter Additional Health Concerns Assessment Noted Time PHQ-9 Depression Total Score: 0 05/28/20 24 2:30 PM EST documented as of this encounter Care Teams Movement Education Specialist Relationship Specialty Start Date End Date Shahbaz Monk DO [address] [facility] [place] [address] PCP - General Family Medicine 02/11/22 documented as of this encounter
--- OUTSIDE RECORDS SUMMARY | 2025-01-17 09:04 | XMS_ITS | Encounter Summary ---
Author Organization [employer] s tem Address [id number] [address] [place] [address] Care Team Providers Care Ribbon Cleaner Name Role Phone Shahbaz Monk DO Primary Care Provider + [phone] Reason for Visit * Reason Comments Med Refill Encounter Details Date Type Department Care Team ([facility] Contact Info) Description 08/06/2022 Refill [facility] - Family Medicine [address] [place] [address] Shahbaz Monk DO [address] [place] [address] Essential (primary) hypertension Social History Tobacco Use [...] Encounters Date Type Department Care Team ([facility] Contact Info) Description 05/21/2025 4:15 PM EST [facility] [address] [place] [address] Shahbaz Monk DO [address] [facility] [place] [address] documented as of this encounter Visit Diagnoses Diagnosis Essential (primary) hypertension Unspecified essential hypertension documented in this encounter Additional Health Concerns Assessment Noted Time PHQ-9 Depression Total Score: 2 05/03/20 22 3:45 PM EST documented as of this encounter Care Teams Ribbon Cleaner Relationship Specialty Start Date End Date Shahbaz Monk DO [address] [place] [address] PCP - General Family Medicine 02/11/22 documented as of this encounter
--- OUTSIDE RECORDS SUMMARY | 2025-01-17 09:04 | XMS_ITS | Encounter Summary ---
Author Organization [facility] BuildOut Sys tem Address [facility] [id number] [address] [place] [address] Care Team Providers Care Promotion Manager Name Role Phone Shahbaz Monk Primary Care Provider + [phone] Encounter Details Date Type Department Care Team (Late st Contact Info) Description 08/31/2024 Orders Only [facility] - Family Medicine [address] [place] [address] Ref Prov, [place] [address] Social History Tobacco Use Types Packs/Day Years Used Date Smoking Tobacco: Former Cigarettes 0.5 33.2 1 990 - 09/11/2022 Smokeless Tobacco: Never Alcohol Use Standard Drinks/Week Comments Not Currently 0 (1 standard drink = 0.6 oz pure alcohol) Occasional 6 pack once a month [facility] Utilities Answer Date Recorded In the past 12 months has health system electric, gas, oil, or water company threatened [...] often do you attend chur ch or jain services? Never 03/07/2023 Do you belong to [...] Answer Date Recorded Total Score 0 05/28/2024 [facility] of Occupat ional Health - [...] - Family Medicine [address] [place] [address] Shahbaz Monk DO [address] [facility] [place] [address] documented as of this encounter Procedures Procedure [...] documented as of this encounter Care Teams Promotion Manager Relationship Specialty Start Date End Date Shahbaz Monk DO [address] [facility] [place] [address] PCP - General Family Medicine 02/11/22 documented as of this encounter
--- OUTSIDE RECORDS SUMMARY | 2025-01-17 09:04 | XMS_ITS | Encounter Summary ---
Author Organization [facility] Sys tem Address [facility] [place][id number] [address] [place] [address] Care Team Providers Care Safety Intern Name Role Phone Shahbaz Monk Primary Care Provider + [phone] Encounter Details Date Type Department Care Team (Late st Contact Info) Description 01/10/2024 Orders Only [facility] - Family Medicine [address] [place] [address] Ref Prov, [place] [address] Social History Tobacco Use Types Packs/Day Years Used Date Smoking Tobacco: Former Cigarettes 0.5 33.2 1 990 - 09/11/2022 Smokeless Tobacco: Never Alcohol Use Standard Drinks/Week Comments Not Currently 0 (1 standard drink = 0.6 oz pure alcohol) Occasional 6 pack once a month [facility] Utilities Answer Date Recorded In the past 12 months has [facility] electric, gas, oil, or water company [...] Answer Date Recorded Total Score 0 01/02/2024 [facility] of Occupat ional Health - Occupational [...] Recorded Do you need help finding a [facility] career center and/or a training program? [...] - Family Medicine [address] [place] [address] Shahbaz Monk DO [address], [facility] [place] [address] documented as of this encounter Procedures Procedure [...] documented as of this encounter Care Teams Safety Intern Relationship Specialty Start Date End Date Shahbaz Monk DO [address] [facility] [place] [address] PCP - General Family Medicine 02/11/22 documented as of this encounter
--- OUTSIDE RECORDS SUMMARY | 2025-01-17 09:04 | XMS_ITS | Encounter Summary ---
Author Organization [facility] tem Address [facility] [id number] [address] [place] [address] Care Team Providers Care Tower Crane Operator Name Role Phone Shahbaz Monk DO Primary Care Provider + [phone] Encounter Details Date Type Department Care Team (Late st Contact Info) Description 04/04/2024 Orders Only [facility] - Family Medicine [address] [place] [address] Shahbaz Monk DO [address], [facility] [place] [address] Social History Tobacco Use Types Packs/Day Years Used Date Smoking Tobacco: Former Cigarettes 0.5 33.2 1 990 - 09/11/2022 Smokeless Tobacco: Never Alcohol Use Standard Drinks/Week Comments Not Currently 0 (1 standard drink = 0.6 oz pure alcohol) Occasional 6 pack once a month [facility] Utilities Answer Date Recorded In the past 12 months has [facility], [employer], or water [employer] threatened to shut off services in [...] any clubs o r organizations such as buddhism groups, unions, fraternal or athletic groups, or [...] Answer Date Recorded Total Score 0 04/03/2024 [facility] [place] of Occupat ional Health - Occupational Stress [...] Recorded Do you need help finding a [facility] career center and/or a training program? [...] - Family Medicine [address] [place] [address] Shahbaz Monk DO [address] [place] [address] documented as of this encounter Procedures Procedure Name Priority Date/Time Associated Diagnosis Comments HOME SLEEP STUDY Routine 10/26/2016 4:02 PM EDT documented in this encounter Visit Diagnoses Not on filedocumented in this encounter Additional Health Concerns Assessment Noted Time PHQ-9 Depression Total Score: 0 04/03/20 24 4:37 PM EDT documented as of this encounter Care Teams Tower Crane Operator Relationship Specialty Start Date End Date Shahbaz Monk DO [address] [facility] [address] PCP - General Family Medicine 02/11/22 documented as of this encounter
--- OUTSIDE RECORDS SUMMARY | 2025-01-17 09:04 | XMS_ITS | Encounter Summary ---
Author Organization [facility] Sys tem Address [facility] [place]-[id number] [address] [place] [address] Care Team Providers Care Auto Body Mechanic Name Role Phone Shahbaz Monk Primary Care Provider + [phone] Encounter Details Date Type Department Care Team (Late st Contact Info) Description 12/07/2022 Orders Only [facility] - Family Medicine [address] [place] [address] Itzel White, ASSET PROTECTION SPECIALIST-SLOTTER OPERATOR [address] [place] [address] Social History Tobacco Use Types Packs/Day Years [...] Medicine [address] [place] [address] Shahbaz Monk DO [address], [facility] [place] [address] documented as of this encounter Procedures Procedure Name Priority Date/Time Associated Diagnosis Comments HM COLOGUARD Routine 08/28/2021 documented in this encounter Results * HM COLOGUARD (08/28/2021) Itzel White ASSET PROTECTION SPECIALIST-SLOTTER OPERATOR HEALTH MAINTENANCE Final Result MANUALLY TRANSCRIBED RESULTS documented in this encounter Visit Diagnoses Not on filedocumented in this encounter Additional Health Concerns Assessment Noted Time PHQ-9 Depression Total Score: 0 12/04/19 23 11:17 AM EDT documented as of this encounter Care Teams Auto Body Mechanic Relationship Specialty Start Date End Date Shahbaz Monk DO [address] [facility], [facility] [place] [address] PCP - General Family Medicine 02/11/22 documented as of this encounter
--- OUTSIDE RECORDS SUMMARY | 2025-01-17 09:04 | XMS_ITS | Encounter Summary ---
Author Organization [facility] tem Address [facility] [place][id number] [address] [place] [address] Care Team Providers Care Broadcast Journalist Name Role Phone Shahbaz Monk DO Primary Care Provider + [phone] Encounter Details Date Type Department Care Team (Late st Contact Info) Description 08/09/2024 [facility]phone [facility] [address] [place] [address] Shahbaz Monk DO [address], [facility] [place] [address] Social History Tobacco Use Types Packs/Day Years Used Date Smoking Tobacco: Former Cigarettes 0.5 33.2 1 990 - 09/11/2022 Smokeless Tobacco: Never Alcohol Use Standard Drinks/Week Comments Not Currently 0 (1 standard drink = 0.6 oz pure alcohol) Occasional 6 pack once a month [facility] Utilities Answer Date Recorded In the past 12 months has [employer], [employer], or water [employer] threatened to shut off services in your [...] 03/07/2023 How often do you attend chur or buddhist services? Never 03/07/2023 Do you belong to any clubs o r organizations such as samaritan groups, unions, fraternal or athletic groups, or [...] Answer Date Recorded Total Score 0 05/28/2024 [facility] of Occupat ional [facility] - Occupational Stress Questionnaire Answer [...] 3:35 PM EST NEEDS A REFERRAL TO [facility] PAIN [facility] documented in this encounter Plan of Treatment Upcoming Encounters Date Type Department Care Team (Late st Contact Info) Description 05/21/2025 4:15 PM EST Office Visit [facility] - Family Medicine [address] [place] [address] Shahbaz Monk DO [address] [facility] [place] [address] documented as of this encounter Visit Diagnoses Not on filedocumented in this encounter Additional Health Concerns Assessment Noted Time PHQ-9 Depression Total Score: 0 05/28/20 24 2:30 PM EST documented as of this encounter Care Teams Broadcast Journalist Relationship Specialty Start Date End Date Shahbaz Monk DO [address] [facility] [place] [address] PCP - General Family Medicine 02/11/22 documented as of this encounter
--- OUTSIDE RECORDS SUMMARY | 2025-01-17 09:04 | XMS_ITS | Clinical Summary ---
Author Organization [facility] [facility] tem Address [facility] [place][id number] [address] [place] [address] Care Team Providers Care Python Django Developer Name Role Phone Natyleon Shahbaz Auguste DO Primary Care Provider + [phone] Allergies No known active allergies Medications omeprazole [...] MORNING 90 tablet 1 08/08/19 25 Active baclofen (LIORESAL) 10 mg tablet 09/06/19 25 Active meloxicam (MOBIC) 7.5 mg tablet Take 1 tablet (7.5 mg total) by mouth. 09/06/19 25 Active atorvastatin (LIPITOR) 20 mg tablet TAKE 1 TABLET BY MOUTH EVERY MORNING 90 tablet 1 11/07/19 25 Active HYDROcodone-ac etaminophen (NORCO) 5-325 mg per tablet prn 12/04/19 25 Active metoprolol succinate XL (TOPROL XL) 50 mg 24 hr tablet Take 0.5 tablets (25 mg total) by mouth every morning. TAKE 1 TABLET BY MOUTH ONCE DAILY EVERY MORNING 12/25/19 25 Active magnesium oxide (MAGOX) 400 mg tablet Take 1 tablet (400 mg total) by mouth in the morning. 100 tablet 1 01/15/20 Active metoprolol succinate XL (TOPROL XL) 50 mg 24 hr tablet TAKE 1 TABLET BY MOUTH ONCE DAILY EVERY MORNING 90 tablet 1 08/08/19 25 025 Discontinued magnesium oxide (MAGOX) 400 mg tablet Take 1 tablet (400 mg total) by mouth in the morning. 100 tablet 1 08/28/19 25 025 Discontinued(Re order) Active Problems Problem Noted Date Diagnosed Date [...] Encounters Date Type Department Care Team Description 01/14/2025 4:30 PM EDT Office Visit [facility] - Family Medicine [address] [place] [address] Shahbaz Monk DO Class 2 severe obesity due to excess calories with serious comorbidity and body mass index (BMI) of 36.0 to 36.9 in adult ([facility]) (Primary Dx); Lumbar disc prolapse with compression radiculopathy; Sleep apnea, unspecified type 01/12/2025 Travel 12/24/2024 4:55 PM EDT Office Visit [facility] - Family Medicine [address] [place] [address] Shahbaz Monk DO Palpitations (Primary Dx); PVC (premature ventricular contraction); Sinus tachycardia 12/24/2024 Telephone [facility] - Family Medicine [address] [place] [address] Kym Parks, [facility] 12/24/2024 Telephone [facility] - Family Medicine [address] [place] [address] Ebony Kaila, [facility] 11/06/2024 Refill [facility] - Family Medicine [address] [place] [address] Shahbaz Monk, DO from Last 3 Months Immunizations Immunization Administration [...] alcohol) Occasional 6 pack once a month [employer] Answer Date Recorded In the past 12 months has [employer], [employer], or water [email or web address] threatened to shut off services in your [...] How often do you attend chur or alevism services? Never 03/07/2023 Do you belong to any clubs o r organizations such as adventism groups, unions, fraternal or athletic groups, or [...] Answer Date Recorded Total Score 0 01/14/2025 [facility] of Occupat ional Health [...] Recorded Do you need help finding a [facility] and/or a training program? [...] Mass Index 36.01 01/14/2025 4:25 PM EDT Plan of Treatment Upcoming Encounters Date Type Department Care Team (Late st Contact Info) Description 05/21/2025 4:15 PM EST Office Visit [facility] - Family Medicine [address] [place] [address] Shahbaz Monk, DO [address], [place] [address] Health Maintenance Due Date Last Done Comments Adult BMI Follow Up Plan 1991 Zoster (Shingles) Vaccine (1 of 2) 2023 Colon Cancer Screening 3 Year Cologuard 08/28/2024 0 08/28/2021, 08/19/2021 Influenza Vaccine 02/11/2025 Adult BMI Screening 01/14/2026 01/14/2025 Depression Screening 01/14/2026 01/14/2025 Tobacco Screening 01/14/2026 01/14/2025 DTaP,Tdap and Td Vaccines (3 - Td or Tdap) 02/11/2030 02/12/2020, 02/12/2020 Medical Devices Not on file Procedures Procedure Name Priority Date/Time Associated Diagnosis Comments POCT EKG Routine 12/24/2024 5:05 PM EDT Palpitations HM COLOGUARD Routine 08/28/2021 from Last 3 Months or Most Recently Relevant to Health Maintenance Results * POCT EKG (12/24/2024 5:05 PM EDT) us Shahbaz Monk DO ECG ORDERABLES Final Result Performing Organization Address [facility] Co de Phone Number MANUALLY TRANSCRIBED RESULTS * COLOGUARD (08/28/2021) us Itzel White DISPATCH SUPERVISOR-CONTROLS ENGINEER HEALTH MAINTENANCE Final Result Performing Organization Address [facility] Co de Phone Number MANUALLY TRANSCRIBED RESULTS from Last 3 Months or Most Recently Relevant to Health Maintenance Insurance [employer] Care Teams Python Django Developer Relationship Specialty Start Date End Date Shahbaz Monk DO [address] [facility], [place] [address] PCP - General Family Medicine 02/11/22
--- OUTSIDE RECORDS SUMMARY | 2025-01-17 09:04 | XMS_ITS | Encounter Summary ---
Author Organization [email or web address] Sys tem Address [facility] [place]-[id number] [address] [place] [address] Care Team Providers Care Medical Office Specialist Name Role Phone NatyShahbaz quintero Primary Care Provider + [phone] Encounter Details Date Type Department Care Team (Late st Contact Info) Description 12/24/2024 Telephone [facility] - Family Medicine [address] [place] [address] Kym Parks CMA Social History Tobacco Use Types Packs/Day Years Used Date Smoking Tobacco: Former Cigarettes 0.5 33.2 1 990 - 09/11/2022 Smokeless Tobacco: Never Alcohol Use Standard Drinks/Week Comments Not Currently 0 (1 standard drink = 0.6 oz pure alcohol) Occasional 6 pack once a month [facility] [employer] Answer Date Recorded In the past 12 [...] often do you attend chur ch or yazdanism services? Never 03/07/2023 Do you belong to any clubs o r organizations such as taoist groups, unions, fraternal or athletic groups, or [...] Answer Date Recorded Total Score 0 12/24/2024 [facility] of Occupat ional Health [...] Recorded Do you need help finding a [facility] and/or a training program? [...] - Family Medicine [address] [place] [address] Shahbaz Monk DO [address], [facility] [address] documented as of this encounter Visit Diagnoses Not on filedocumented in this encounter Additional Health Concerns Assessment Noted Time PHQ-9 Depression Total Score: 0 12/25/19 25 4:58 PM EDT documented as of this encounter Care Teams Medical Office Specialist Relationship Specialty Start Date End Date Shahbaz Monk DO [address] [facility] [address] PCP - General Family Medicine 02/11/22 documented as of this encounter
--- OUTSIDE RECORDS SUMMARY | 2025-01-17 09:04 | XMS_ITS | Encounter Summary ---
Author Organization [facility] Sys tem Address [facility] [id number] [address] [place] [address] Care Team Providers Care Fireboat Operator Name Role Phone Shahbaz Monk Primary Care Provider + [phone] Encounter Details Date Type Department Care Team (Late st Contact Info) Description 08/23/2023 Orders Only [facility] - Family Medicine [address] [place] [address] External, Scanning Provider Social History Tobacco Use Types Packs/Day Years Used Date Smoking Tobacco: Former Cigarettes 0.5 33.2 1 990 - 09/11/2022 Smokeless Tobacco: Never Alcohol Use Standard Drinks/Week Comments Yes 0 (1 standard drink = 0.6 oz pur e alcohol) Occasional 6 pack once a month [facility] Utilities Answer Date Recorded In the [...] often do you attend chur ch or shinto services? Never 03/07/2023 Do you belong to [...] Answer Date Recorded Total Score 0 08/04/2023 [facility] of Occupat ional Health - Occupational Stress [...] - Family Medicine [address] [place] [address] Shahbaz Monk DO [address], [place] [address] documented as of this encounter Procedures Procedure [...] documented as of this encounter Care Teams Fireboat Operator Relationship Specialty Start Date End Date Shahbaz Monk DO [address] [facility], [place] [address] PCP - General Family Medicine 02/11/22 documented as of this encounter
--- OUTSIDE RECORDS SUMMARY | 2025-01-17 09:04 | XMS_ITS | Encounter Summary ---
Author Organization [facility] tem Address [facility] [place]-[id number] [address] [place] [address] Care Team Providers Care Plan Consultant Name Role Phone Shahbaz Monk DO Primary Care Provider + [phone] Encounter Details Date Type Department Care Team (Late st Contact Info) Description 02/28/2023 Orders Only [facility] - Family Medicine [address] [place] [address] Shahbaz Monk DO [address] [facility] [address] Social History Tobacco Use Types Packs/Day Years [...] - Family Medicine [address] [place] [address] Shahbaz Monk DO [address] [facility] [address] documented as of this encounter Visit Diagnoses Not on filedocumented in this encounter Additional Health Concerns Assessment Noted Time PHQ-9 Depression Total Score: 0 12/04/19 23 11:17 AM EDT documented as of this encounter Care Teams Plan Consultant Relationship Specialty Start Date End Date Shahbaz Monk DO [address] [facility] [address] PCP - General Family Medicine 02/11/22 documented as of this encounter
== END 2025-01-17 09:02 | disposition home or self-care (01) ==
LOC: PM 09:01
PROVIDERS: PCP Family Medicine; Visit Provider Nurse Practitioner
DX: M48.062 Spinal stenosis, lumbar region with neurogenic claudication (principal); M47.816 Spondylosis without myelopathy or radiculopathy, lumbar region; Z79.891 Long term (current) use of opiate analgesic
CPT/HCPCS: G0463

== ENCOUNTER 2025-01-28 09:58 | Day surgery (SDC) | payer OTHER, SELFPAY ==
--- OUTSIDE RECORDS SUMMARY | 2025-01-14 16:30 | XMS_ITS | Encounter Summary ---
Author Organization [facility] tem Address [id number] [address] [place] [address] Care Team Providers Care Corporate Librarian Name Role Phone Shahbaz Monk DO Primary Care Provider + [phone] Reason for Visit * Reason Comments recheck Encounter Details Date Type Department Care Team ([facility] st Contact Info) Description 01/14/2025 4:30 PM EDT Office Visit [facility] Physicians Internal Medicine - Family Medicine [address] [place] [address] Shahbaz Monk DO [address], [facility] [place] [address] Class 2 severe obesity due to excess calories with serious comorbidity and body mass index (BMI) of 36.0 to 36.9 in adult ([facility]) (Primary Dx); Lumbar disc prolapse with compression radiculopathy; Sleep apnea, unspecified type Social History Tobacco Use Types Packs/Day Years Used Date Smoking Tobacco: Former Cigarettes 0.5 33.2 1 990 - 09/11/2022 Smokeless Tobacco: Never Alcohol Use Standard Drinks/Week Comments Not Currently 0 (1 standard drink = 0.6 oz pure alcohol) Occasional 6 pack once a month [facility] Utilities Answer Date Recorded In the past 12 months has [employer], gas, oil, or water [employer] threatened to shut off services in your [...] often do you attend chur ch or episcopal services? Never 03/07/2023 Do you belong to any clubs o r organizations such as gnosticism groups, unions, fraternal or athletic groups, or [...] Answer Date Recorded Total Score 0 01/14/2025 [facility] of Occupat ional Health - [...] Recorded Do you need help finding a [facility] career center and/or a training program? No [...] index (BMI) of36.0 to 36.9 in adult ([facility]) He is obese. He continues to lose [...] - Family Medicine [address] [place] [address] Shahbaz Monk DO [address] [facility] [place] [address] documented as of this encounter Visit Diagnoses Diagnosis Class 2 severe obesity due to excess calories with serious comorbidity and body mass index (BMI) of 36.0 to 36.9 in adult ([facility])- Primary Lumbar disc prolapse with compression radiculopathy Displacement of lumbar intervertebral disc without myelopathy Sleep apnea, unspecified type documented in this encounter Additional Health Concerns Assessment Noted Time PHQ-9 Depression Total Score: 0 01/15/20 25 4:24 PM EDT documented as of this encounter Care Teams Corporate Librarian Relationship Specialty Start Date End Date Shahbaz Monk DO [address] [facility] [place] [address] PCP - General Family Medicine 02/11/22 documented as of this encounter
--- OUTSIDE RECORDS SUMMARY | 2025-01-28 10:01 | XMS_ITS | Encounter Summary ---
Author Organization [facility] tem Address [facility] [place][id number] [address] [place] [address] Care Team Providers Care Loan Review Manager Name Role Phone Shahbaz Monk DO Primary Care Provider + [phone] Encounter Details Date Type Department Care Team (Late st Contact Info) Description 08/09/2024 [facility] [address] [place] [phone] Shahbaz Monk DO [address], [facility] [place] [address] Social History Tobacco Use Types Packs/Day Years Used Date Smoking Tobacco: Former Cigarettes 0.5 33.2 1 990 - 09/11/2022 Smokeless Tobacco: Never Alcohol Use Standard Drinks/Week Comments Not Currently 0 (1 standard drink = 0.6 oz pure alcohol) Occasional 6 pack once a month [facility] Utilities Answer Date Recorded In the past 12 months has [employer], or water [employer] threatened to shut off services in your [...] How often do you attend chur or sabianism services? Never 03/07/2023 Do you belong to any clubs o r organizations such as jain groups, unions, fraternal or athletic groups, or [...] Answer Date Recorded Total Score 0 05/28/2024 [facility] of Occupat ional [facility] - Occupational Stress Questionnaire Answer Date [...] 3:35 PM EST NEEDS A REFERRAL TO [facility] documented in this encounter Plan of Treatment Upcoming Encounters Date Type Department Care Team (Late st Contact Info) Description 05/21/2025 4:15 PM EST Office Visit [facility] Internal Medicine - Family Medicine [address] [place] [address] Shahbaz Monk DO [address] [facility] [place] [address] documented as of this encounter Visit Diagnoses Not on filedocumented in this encounter Additional Health Concerns Assessment Noted Time PHQ-9 Depression Total Score: 0 05/28/20 24 2:30 PM EST documented as of this encounter Care Teams Loan Review Manager Relationship Specialty Start Date End Date Shahbaz Monk DO [address] [place] [address] PCP - General Family Medicine 02/11/22 documented as of this encounter
--- OUTSIDE RECORDS SUMMARY | 2025-01-28 10:01 | XMS_ITS | Encounter Summary ---
Author Organization [facility] tem Address [facility] [id number] [address] [place] [address] Care Team Providers Care Professor Of Forestry Name Role Phone Shahbaz Monk DO Primary Care Provider + [phone] Reason for Visit * Reason Comments Med Refill Encounter Details Date Type Department Care Team ([facility] Contact Info) Description 10/27/2022 Refill [facility] Internal Medicine - Family Medicine [address] [place] [phone] Shahbaz Monk DO [address], [facility] [place] [address] Essential (primary) hypertension; Spondylolisthesis, lumbar region Social [...] Medicine - Family Medicine [address] [place] [address] Shahbaz Monk DO [address] [facility] [address] documented as of this encounter Visit Diagnoses Diagnosis Essential (primary) hypertension Unspecified essential hypertension Spondylolisthesis, lumbar region documented in this encounter Additional Health Concerns Assessment Noted Time PHQ-9 Depression Total Score: 0 08/17/19 23 4:45 PM EST documented as of this encounter Care Teams Professor Of Forestry Relationship Specialty Start Date End Date Shahbaz Monk DO [address] [facility] [address] PCP - General Family Medicine 02/11/22 documented as of this encounter
--- OUTSIDE RECORDS SUMMARY | 2025-01-28 10:01 | XMS_ITS | Encounter Summary ---
[facility] Address [facility] [id number] [address] [place] [address] Care Team Providers Care Extension Worker Name Role Phone Shahbaz Monk DO Primary Care Provider [phone] Encounter Details Date Type Department Care Team ([facility] st Contact Info) Description 05/17/2022 Telephone [facility] Internal Medicine - Family Medicine [address] [place] [address] Roslyn Day MA Social History Tobacco Use [...] Medicine - Family Medicine [address] [place] [address] Shahbaz Monk DO [address] [facility] [place] [address] documented as of this encounter Visit Diagnoses Not on filedocumented in this encounter Additional Health Concerns Assessment Noted Time PHQ-9 Depression Total Score: 2 05/03/20 22 3:45 PM EST documented as of this encounter Care Teams Extension Worker Relationship Specialty Start Date End Date Shahbaz Monk DO [address] [facility] [place] [address] PCP - General Family Medicine 02/11/22 documented as of this encounter
--- OUTSIDE RECORDS SUMMARY | 2025-01-28 10:01 | XMS_ITS | Encounter Summary ---
Author Organization [employer] [facility] tem Address [facility] [id number] [address] [place] [address] Care Team Providers Care Hot Bread Baker Name Role Phone Shahbaz Monk DO Primary Care Provider + [phone] Reason for Visit * Reason Comments Med Refill Encounter Details Date Type Department Care Team ([facility] Contact Info) Description 08/06/2022 Refill [facility] Internal Medicine - Family Medicine [address] [place] [address] Shahbaz Monk DO [address] [place] [address] Essential (primary) hypertension Social History Tobacco Use [...] Upcoming Encounters Date Type Department Care Team ([facility] Contact Info) Description 05/21/2025 4:15 PM EST [facility] [address] [place] [address] Shahbaz Monk DO [address] [facility] [place] [address] documented as of this encounter Visit Diagnoses Diagnosis Essential (primary) hypertension Unspecified essential hypertension documented in this encounter Additional Health Concerns Assessment Noted Time PHQ-9 Depression Total Score: 2 05/03/20 22 3:45 PM EST documented as of this encounter Care Teams Hot Bread Baker Relationship Specialty Start Date End Date Shahbaz Monk DO [address] [place] [address] PCP - General Family Medicine 02/11/22 documented as of this encounter
--- OUTSIDE RECORDS SUMMARY | 2025-01-28 10:01 | XMS_ITS | Encounter Summary ---
Author Organization [facility] tem Address [facility] [id number] [address] [place] [address] Care Team Providers Care Outreach Consultant Name Role Phone Shahbaz Monk Primary Care Provider + [phone] Encounter Details Date Type Department Care Team (Late st Contact Info) Description 12/07/2022 Orders Only [facility] Internal Medicine - Family Medicine [address] [place] [phone] Itzel White, ALUMINUM HYDROXIDE PROCESS OPERATOR-MINE ENGINEERING SUPERVISOR [address] [place] [address] Social History Tobacco Use Types Packs/Day Years [...] Medicine [address] [place] [address] Shahbaz Monk DO [address], [facility] [place] [address] documented as of this encounter Procedures Procedure Name Priority Date/Time Associated Diagnosis Comments HM COLOGUARD Routine 08/28/2021 documented in this encounter Results * HM COLOGUARD (08/28/2021) Itzel White ALUMINUM HYDROXIDE PROCESS OPERATOR-MINE ENGINEERING SUPERVISOR HEALTH MAINTENANCE Final Result MANUALLY TRANSCRIBED RESULTS documented in this encounter Visit Diagnoses Not on filedocumented in this encounter Additional Health Concerns Assessment Noted Time PHQ-9 Depression Total Score: 0 12/04/19 23 11:17 AM EDT documented as of this encounter Care Teams Outreach Consultant Relationship Specialty Start Date End Date Shahbaz Monk DO [address] [facility], [facility] [address] PCP - General Family Medicine 02/11/22 documented as of this encounter
--- OUTSIDE RECORDS SUMMARY | 2025-01-28 10:01 | XMS_ITS | Encounter Summary ---
Author Organization [facility] tem Address [facility] [id number] [address] [place] [address] Care Team Providers Care Political Director Name Role Phone Shahbaz Monk Primary Care Provider + [phone] Encounter Details Date Type Department Care Team (Late st Contact Info) Description 03/06/2024 Orders Only [facility] Internal Medicine - Family Medicine [address] [place] [address] Ref Prov, [place] [address] Social History Tobacco Use Types Packs/Day Years Used Date Smoking Tobacco: Former Cigarettes 0.5 33.2 1 990 - 09/11/2022 Smokeless Tobacco: Never Alcohol Use Standard Drinks/Week Comments Not Currently 0 (1 standard drink = 0.6 oz pure alcohol) Occasional 6 pack once a month [facility] Utilities Answer Date Recorded In the past 12 months has [facility], gas, oil, or water company [...] any clubs o r organizations such as congregational groups, unions, fraternal or athletic groups, or [...] Answer Date Recorded Total Score 0 01/02/2024 [facility] of Occupat ional Health - Occupational [...] - Family Medicine [address] [place] [address] Shahbaz Monk DO [address] [facility] [place] [address] documented as of this encounter Procedures Procedure [...] documented as of this encounter Care Teams Political Director Relationship Specialty Start Date End Date Shahbaz Monk DO [address] [place] [place] [address] PCP - General Family Medicine 02/11/22 documented as of this encounter
--- OUTSIDE RECORDS SUMMARY | 2025-01-28 10:01 | XMS_ITS | Clinical Summary ---
Author Organization [employer] tem Address [facility] [place][id number] [address] [place] [address] Care Team Providers Care Civil Rights Attorney Name Role Phone NatyTy quinteroevi Auguste DO Primary Care Provider + [phone] Allergies No known active allergies Medications omeprazole (PriLOSEC) 20 mg capsule Take 1 capsule (20 mg total) by mouth daily as needed. Active SEMAGLUTIDE, WEIGHT LOSS, SUBQ Inject 1.8 mg under the skin once a week. Active oxybutynin (DITROPAN) 5 mg tabletIndicatio ns:Urinary urgency TAKE 1 TABLET BY MOUTH IN THE MORNING 90 tablet 1 4 Active tamsulosin (FLOMAX) 0.4 mg capsule Take 1 capsule (0.4 mg total) by mouth nightly. Has questions 4 Active fenofibrate (LOFIBRA) 160 mg tablet TAKE 1 TABLET BY MOUTH ONCE DAILY IN THE MORNING 90 tablet 1 5 Active baclofen (LIORESAL) 10 mg tablet 5 Active meloxicam (MOBIC) 7.5 mg tablet Take 1 tablet (7.5 mg total) by mouth. 5 Active atorvastatin (LIPITOR) 20 mg tablet TAKE 1 TABLET BY MOUTH EVERY MORNING 90 tablet 1 5 Active HYDROcodone-patricio taminophen (NORCO) 5-325 mg per tablet prn 5 Active metoprolol succinate XL (TOPROL XL) 50 mg 24 hr tablet Take 0.5 tablets (25 mg total) by mouth every morning. TAKE 1 TABLET BY MOUTH ONCE DAILY EVERY MORNING 5 Active magnesium oxide (MAGOX) 400 mg tablet Take 1 tablet (400 mg total) by mouth in the morning. 100 tablet 1 5 Active magnesium oxide (MAGOX) 400 mg tablet Take 1 tablet (400 mg total) by mouth in the morning. 100 tablet 1 5 01/15/20 25 Discontinu ed(Reorder ) Active Problems Problem Noted Date Diagnosed Date [...] Medicine - Family Medicine [address] [place] [address] Shahbaz Monk DO Class 2 severe obesity due to excess calories with serious comorbidity and body mass index (BMI) of 36.0 to 36.9 in adult ([facility]) (Primary Dx); Lumbar disc prolapse with compression radiculopathy; Sleep apnea, unspecified type 01/12/2025 Travel 12/24/2024 4:55 PM EDT Office Visit [facility] - Family Medicine [address] [place] [address] Shahbaz Monk DO Palpitations (Primary Dx); PVC (premature ventricular contraction); Sinus tachycardia 12/24/2024 Telephone [facility] Medicine - Family Medicine [address] [place] [address] Kym Parks CMA 12/24/2024 Telephone [facility] Medicine - Family Medicine [address] [place] [address] Kaila Beck, [facility] 11/06/2024 Refill [facility] Internal Medicine - Family Medicine [address] [place] [address] Shahbaz Monk, DO from Last 3 Months [...] alcohol) Occasional 6 pack once a month [employer] Answer Date Recorded In the past 12 months has [employer], gas, oil, or water [employer] threatened to shut off services in your [...] often do you attend chur ch or yazidi services? Never 03/07/2023 Do you belong to any clubs o r organizations such as scientology groups, unions, fraternal or athletic groups, or [...] Answer Date Recorded Total Score 0 01/14/2025 [facility] of Occupat ional Health [...] you need help finding a [facility] and/or a training [...] a purpose and direction in my life. Tulio gly Agree 03/07/2023 Sex and Gender Information [...] - Family Medicine [address] [place] [address] Shahbaz Monk, DO [address] [facility] [place] [address] Health Maintenance Due Date Last Done Comments [...] EKG Routine 12/24/2024 5:05 PM EDT Palpitations COLOGUARD Routine 08/28/2021 from Last 3 Months or Most Recently Relevant to Health Maintenance Results * POCT EKG (12/24/2024 5:05 PM EDT) us Shahbaz Monk DO ECG ORDERABLES Final Result Performing Organization Address City[facility] Co de Phone Number MANUALLY TRANSCRIBED RESULTS * COLOGUARD (08/28/2021) us Itzel White SEAMER OPERATOR-HOG CONFINEMENT SYSTEM MANAGER HEALTH MAINTENANCE Final Result Performing Organization Address [facility] Co de Phone Number MANUALLY TRANSCRIBED RESULTS from Last 3 Months or Most Recently Relevant to Health Maintenance Insurance [employer] Care Teams Civil Rights Attorney Relationship Specialty Start Date End Date Shahbaz Monk DO [address] [facility] [place] [address] PCP - General Family Medicine 02/11/22
--- OUTSIDE RECORDS SUMMARY | 2025-01-28 10:01 | XMS_ITS | Encounter Summary ---
Author Organization [facility] Address [id number] [address] [place] [address] Care Team Providers Care Reception Centre Manager Name Role Phone Shahbaz Monk DO Primary Care Provider + [phone] Reason for Visit * Reason Onset Date Comments Med Refill 09/12/2023 Encounter Details Date Type Department Care Team (Late st Contact Info) Description 09/12/2023 Telephone [facility] Internal Medicine - Family Medicine [address] [place] [address] Shahbaz Monk DO [address], [facility] [place] [address] Med Refill Social History Tobacco Use Types Packs/Day Years Used Date Smoking Tobacco: Former Cigarettes 0.5 33.2 1 990 - 09/11/2022 Smokeless Tobacco: Never Alcohol Use Standard Drinks/Week Comments Not Currently 0 (1 standard drink = 0.6 oz pure alcohol) Occasional 6 pack once a month [facility] Utilities Answer Date Recorded In the past 12 months has [employer], gas, oil, or water [employer] threatened to shut off services in your [...] week 03/07/2023 How often do you attend [facility] or latter-day services? Never 03/07/2023 Do you belong to any clubs o r organizations such as zoroastrian groups, unions, fraternal or athletic groups, or [...] Answer Date Recorded Total Score 0 08/30/2023 [facility] of Occupat ional [...] Recorded Do you need help finding a [place] [employer] career center and/or a training program? No [...] - Family Medicine [address] [place] [address] Shahbaz Monk DO [address] [place] [address] documented as of this encounter Visit Diagnoses Not on filedocumented in this encounter Additional Health Concerns Assessment Noted Time PHQ-9 Depression Total Score: 0 08/30/19 24 3:49 PM EDT documented as of this encounter Care Teams Reception Centre Manager Relationship Specialty Start Date End Date Shahbaz Monk DO [address], [place] [address] PCP - General Family Medicine 02/11/22 documented as of this encounter
--- OUTSIDE RECORDS SUMMARY | 2025-01-28 10:01 | XMS_ITS | Clinical Summary ---
Author Organization [facility] Address [address] [place] [address] Phone Care Team Providers Care Metal Sprayer Name Role Phone Yandel Garcia DO Primary Care Provider Social History Tobacco Use Types Packs/Day Years Used Date Smoking Tobacco: Never Assessed Sex and Gender Information Value Date Recorded Sex Assigned at Not on file Legal Sex Male 10:39 AM EST Gender Identity Not on file Sexual Orientation Not on file Plan of Treatment Not on file Care Teams Metal Sprayer Relationship Specialty Start Date End Date Yandel Garcia DO [address] [place] [address] PCP - General 10/24/17
--- OUTSIDE RECORDS SUMMARY | 2025-01-28 10:01 | XMS_ITS | Encounter Summary ---
Author Organization [facility] [employer] Sys tem Address [facility]-[id number] [address] [place] [address] Care Team Providers Care Terrazzo Finisher Name Role Phone Shahbaz Monk Primary Care Provider + [phone] Encounter Details Date Type Department Care Team (Late st Contact Info) Description 08/23/2023 Orders Only [facility] Internal [facility] - Family Medicine [address] [place] [address] External, Scanning Provider Social History Tobacco Use Types Packs/Day Years Used Date Smoking Tobacco: Former Cigarettes 0.5 33.2 1 990 - 09/11/2022 Smokeless Tobacco: Never Alcohol Use Standard Drinks/Week Comments Yes 0 (1 standard drink = 0.6 oz pur e alcohol) Occasional 6 pack once a month [facility] Utilities Answer Date Recorded In the past [...] often do you attend chur ch or hoahaoism services? Never 03/07/2023 Do you belong to any clubs o r organizations such as anglican groups, unions, fraternal or athletic groups, or [...] Answer Date Recorded Total Score 0 08/04/2023 [facility] of Occupat ional Health - Occupational [...] Recorded Do you need help finding a [facility] career [facility] and/or a training program? [...] - Family Medicine [address] [place] [address] Shahbaz Monk DO [address], [place] [address] documented as of this encounter Procedures Procedure [...] documented as of this encounter Care Teams Terrazzo Finisher Relationship Specialty Start Date End Date Shahbaz Monk DO [address] [facility], [place] [address] PCP - General Family Medicine 02/11/22 documented as of this encounter
--- OUTSIDE RECORDS SUMMARY | 2025-01-28 10:01 | XMS_ITS | Encounter Summary ---
Author Organization [facility] Sys tem Address [facility]-[id number] [address] [place] [address] Care Team Providers Care Manager Radiation Name Role Phone Shahbaz Monk DO Primary Care Provider + [phone] Encounter Details Date Type Department Care Team (Late st Contact Info) Description 02/28/2023 Orders Only [facility] Internal Medicine - Family Medicine [address] [place] [address] Shahbaz Monk DO [address] [facility], [facility] [place] [address] Social History Tobacco Use Types Packs/Day Years [...] - Family Medicine [address] [place] [address] Shahbaz Monk DO [address] [facility] [place] [address] documented as of this encounter Visit Diagnoses Not on filedocumented in this encounter Additional Health Concerns Assessment Noted Time PHQ-9 Depression Total Score: 0 12/04/19 23 11:17 AM EDT documented as of this encounter Care Teams Manager Radiation Relationship Specialty Start Date End Date Shahbaz Monk DO [address] [facility] [place] [address] PCP - General Family Medicine 02/11/22 documented as of this encounter
--- OUTSIDE RECORDS SUMMARY | 2025-01-28 10:01 | XMS_ITS | Encounter Summary ---
Author Organization [employer] s tem Address [facility]-[id number] [address] [place] [address] Care Team Providers Care Transfusion Aide Name Role Phone Shahbaz Monk DO Primary Care Provider + [phone] Encounter Details Date Type Department Care Team (Late Contact Info) Description 02/25/2022 Orders Only [facility] Internal Medicine - Family Medicine [address] [place] [address] Shahbaz Monk DO [address], [facility] [place] [address] Social History Tobacco Use Types Packs/Day Years [...] Upcoming Encounters Date Type Department Care Team ([facility] Contact Info) Description 05/21/2025 4:15 PM EST Office Visit [facility] Medicine - Family Medicine [address] [place] [address] Shahbaz Monk DO [address] [facility] [place] [address] documented as of this encounter Visit Diagnoses Not on filedocumented in this encounter Care Teams Transfusion Aide Relationship Specialty Start Date End Date Shahbaz Monk DO [address] [facility] [place] [address] PCP - General Family Medicine 02/11/22 documented as of this encounter
--- OUTSIDE RECORDS SUMMARY | 2025-01-28 10:01 | XMS_ITS | Clinical Summary ---
Author Organization [facility] Address [address] [place] [address] Care Team Providers Care Microbiology Teacher Name Role Phone Unavailable Primary Care Provider [...]
--- OUTSIDE RECORDS SUMMARY | 2025-01-28 10:01 | XMS_ITS | Encounter Summary ---
Author Organization [facility] tem Address [id number] [address] [place] [address] Care Team Providers Care Plastic Joint Maker Name Role Phone Shahbaz Monk DO Primary Care Provider + [phone] Encounter Details Date Type Department Care Team (Late st Contact Info) Description 08/09/2024 Orders Only [facility] Internal Medicine - Family Medicine [address] [place] [address] Shahbaz Monk DO [address], [place] [address] Social History Tobacco Use Types Packs/Day Years Used Date Smoking Tobacco: Former Cigarettes 0.5 33.2 1 990 - 09/11/2022 Smokeless Tobacco: Never Alcohol Use Standard Drinks/Week Comments Not Currently 0 (1 standard drink = 0.6 oz pure alcohol) Occasional 6 pack once a month [facility] Utilities Answer Date Recorded In the past 12 months has [employer], [employer], or water [employer] threatened to shut off services in your [...] any clubs o r organizations such as presybeterian groups, unions, fraternal or athletic groups, or [...] Answer Date Recorded Total Score 0 05/28/2024 [facility] of Occupat ional Health - Occupational Stress [...] Recorded Do you need help finding a [facility] career center and/or a training program? [...] - Family Medicine [address] [place] [address] Shahbaz Monk DO [address] [place] [address] documented as of this encounter Visit Diagnoses Not on filedocumented in this encounter Additional Health Concerns Assessment Noted Time PHQ-9 Depression Total Score: 0 05/28/20 24 2:30 PM EST documented as of this encounter Care Teams Plastic Joint Maker Relationship Specialty Start Date End Date Shahbaz Monk DO [address] [place] [address] PCP - General Family Medicine 02/11/22 documented as of this encounter
--- OUTSIDE RECORDS SUMMARY | 2025-01-28 10:01 | XMS_ITS | Encounter Summary ---
Author Organization [facility] [employer] [facility] tem Address [facility]-[id number] [address] [place] [address] Care Team Providers Care Regional Wildlife Agent Name Role Phone SandhyaShahbaz gillespie Primary Care Provider + [phone] Encounter Details Date Type Department Care Team (Late st Contact Info) Description 08/21/2024 Orders Only [facility] Internal Medicine - Family Medicine [address] [place] [address] Kath Irvin CMA Lumbar disc prolapse with compression radiculopathy Social History Tobacco Use Types Packs/Day Years Used Date Smoking Tobacco: Former Cigarettes 0.5 33.2 1 990 - 09/11/2022 Smokeless Tobacco: Never Alcohol Use Standard Drinks/Week Comments Not Currently 0 (1 standard drink = 0.6 oz pure alcohol) Occasional 6 pack once a month [facility] Utilities Answer Date Recorded In the past 12 months has [facility] electric, gas, oil, or water company [...] any clubs o r organizations such as yarsani groups, unions, fraternal or athletic groups, or [...] Answer Date Recorded Total Score 0 05/28/2024 [facility] of Occupat ional Health - Occupational [...] Medicine - Family Medicine [address] [place] [address] Shahbaz Monk DO [address] [facility] [place] [address] documented as of this encounter Procedures Procedure [...] documented as of this encounter Care Teams Regional Wildlife Agent Relationship Specialty Start Date End Date Shahbaz Monk DO [address], [facility] [place] [address] PCP - General Family Medicine 02/11/22 documented as of this encounter
--- OUTSIDE RECORDS SUMMARY | 2025-01-28 10:01 | XMS_ITS | Encounter Summary ---
Author Organization [facility] [employer] Sys tem Address [facility]-[id number] [address] [place] [address] Care Team Providers Care Ceramic Coater Machine Name Role Phone Shahbaz Monk Primary Care Provider + [phone] Encounter Details Date Type Department Care Team (Late st Contact Info) Description 12/03/2022 Documentation [facility] - Family Medicine [address] [place] [address] Kaila Beck CMA Social History Tobacco Use [...] Medicine [address] [place] [address] Shahbaz Monk DO [address] [facility] [address] documented as of this encounter Visit Diagnoses Not on filedocumented in this encounter Additional Health Concerns Assessment Noted Time PHQ-9 Depression Total Score: 0 12/04/19 23 11:17 AM EDT documented as of this encounter Care Teams Ceramic Coater Machine Relationship Specialty Start Date End Date Shahbaz Monk DO [address] [facility] [address] PCP - General Family Medicine 02/11/22 documented as of this encounter
--- OUTSIDE RECORDS SUMMARY | 2025-01-28 10:01 | XMS_ITS | Encounter Summary ---
Author Organization [facility] Address [facility]-[id number] [address] [place] [address] Care Team Providers Care Pizza Delivery Name Role Phone Shahbaz Monk DO Primary Care Provider + [phone] Encounter Details Date Type Department Care Team (Late st Contact Info) Description 04/04/2024 Orders Only [facility] Internal Medicine - Family Medicine [address] [place] [address] Shahbaz Monk DO [address], [facility] [place] [address] Social History Tobacco Use Types Packs/Day Years Used Date Smoking Tobacco: Former Cigarettes 0.5 33.2 1 990 - 09/11/2022 Smokeless Tobacco: Never Alcohol Use Standard Drinks/Week Comments Not Currently 0 (1 standard drink = 0.6 oz pure alcohol) Occasional 6 pack once a month [facility] Utilities Answer Date Recorded In the past 12 months has [employer], [employer], or water [employer] threatened to shut off services in your [...] any clubs o r organizations such as faith groups, unions, fraternal or athletic groups, or [...] Answer Date Recorded Total Score 0 04/03/2024 [facility] of Occupat ional Health - Occupational Stress [...] - Family Medicine [address] [place] [address] Shahbaz Monk DO [address] [facility] [place] [address] documented as of this encounter Procedures Procedure Name Priority Date/Time Associated Diagnosis Comments HOME SLEEP STUDY Routine 10/26/2016 4:02 PM EDT documented in this encounter Visit Diagnoses Not on filedocumented in this encounter Additional Health Concerns Assessment Noted Time PHQ-9 Depression Total Score: 0 04/03/20 24 4:37 PM EDT documented as of this encounter Care Teams Pizza Delivery Relationship Specialty Start Date End Date Shahbaz Monk DO [address] [facility] [place] [address] PCP - General Family Medicine 02/11/22 documented as of this encounter
--- OUTSIDE RECORDS SUMMARY | 2025-01-28 10:01 | XMS_ITS | Encounter Summary ---
Author Organization [employer] s tem Address [facility]-[id number] [address] [place] [address] Care Team Providers Care A P Supervisor Name Role Phone Shahbaz Monk DO Primary Care Provider + [phone] Reason for Visit * Reason Onset Date Comments Med Refill 06/22/2022 Encounter Details Date Type Department Care Team (Late Contact Info) Description 06/22/2022 Refill [facility] Internal Medicine - Family Medicine [address] [place] [address] Kath Irvin CMA Degeneration of lumbar intervertebral [...] Upcoming Encounters Date Type Department Care Team ([facility] Contact Info) Description 05/21/2025 4:15 PM EST Office Visit [facility] Medicine - Family Medicine [address] [place] [address] Shahbaz Monk DO [address] [place] [address] documented as of this encounter Visit Diagnoses Diagnosis Degeneration of lumbar intervertebral disc Degeneration of lumbar or lumbosacral intervertebral disc documented in this encounter Additional Health Concerns Assessment Noted Time PHQ-9 Depression Total Score: 2 05/03/20 22 3:45 PM EST documented as of this encounter Care Teams A P Supervisor Relationship Specialty Start Date End Date Shahbaz Monk DO [address], [place] [address] PCP - General Family Medicine 02/11/22 documented as of this encounter
--- OUTSIDE RECORDS SUMMARY | 2025-01-28 10:01 | XMS_ITS | Encounter Summary ---
Author Organization [facility] [employer] Sys tem Address [facility]-[id number] [address] [place] [address] Care Team Providers Care Physician Recruiter Name Role Phone Shahbaz Monk Primary Care Provider + [phone] Encounter Details Date Type Department Care Team (Late st Contact Info) Description 08/22/2023 Orders Only [facility] Internal Medicine - Family Medicine [address] [place] [address] External, Scanning Provider Social History Tobacco Use Types Packs/Day Years Used Date Smoking Tobacco: Former Cigarettes 0.5 33.2 1 990 - 09/11/2022 Smokeless Tobacco: Never Alcohol Use Standard Drinks/Week Comments Yes 0 (1 standard drink = 0.6 oz pur e alcohol) Occasional 6 pack once a month [facility] Utilities Answer Date Recorded In [...] often do you attend chur ch or cheondoism services? Never 03/07/2023 Do you belong to any clubs o r organizations such as sabianism groups, unions, fraternal or athletic groups, or [...] Answer Date Recorded Total Score 0 08/04/2023 [facility] of Occupat ional Health - Occupational [...] Recorded Do you need help finding a [facility] career center and/or a training [...] - Family Medicine [address] [place] [address] Shahbaz Monk DO [address], [place] [address] documented as of this encounter Procedures Procedure [...] documented as of this encounter Care Teams Physician Recruiter Relationship Specialty Start Date End Date Shahbaz Monk DO [address], [place] [address] PCP - General Family Medicine 02/11/22 documented as of this encounter
--- OUTSIDE RECORDS SUMMARY | 2025-01-28 10:01 | XMS_ITS | Encounter Summary ---
Author Organization [facility] [employer] Sys tem Address [id number] [address] [place] [address] Care Team Providers Care Ios Developer Name Role Phone Shahbaz Monk Primary Care Provider + [phone] Encounter Details Date Type Department Care Team (Late st Contact Info) Description 08/31/2024 Orders Only [facility] Medicine - Family Medicine [address] [place] [address] Ref Prov, [place] [address] Social History Tobacco Use Types Packs/Day Years Used Date Smoking Tobacco: Former Cigarettes 0.5 33.2 1 990 - 09/11/2022 Smokeless Tobacco: Never Alcohol Use Standard Drinks/Week Comments Not Currently 0 (1 standard drink = 0.6 oz pure alcohol) Occasional 6 pack once a month [facility] Utilities Answer Date Recorded In the past 12 months has [facility] electric, gas, oil, or water company [...] often do you attend chur ch or rastafari services? Never 03/07/2023 Do you belong to any clubs o r organizations such as sabianist groups, unions, fraternal or athletic groups, or [...] Answer Date Recorded Total Score 0 05/28/2024 [facility] of Occupat ional Health - Occupational [...] - Family Medicine [address] [place] [address] Shahbaz Monk DO [address] [facility] [place] [address] documented as of this encounter Procedures Procedure [...] documented as of this encounter Care Teams Ios Developer Relationship Specialty Start Date End Date Shahbaz Monk DO [address] [place] [address] PCP - General Family Medicine 02/11/22 documented as of this encounter
--- OUTSIDE RECORDS SUMMARY | 2025-01-28 10:01 | XMS_ITS | Encounter Summary ---
Author Organization [facility] [employer] Sys tem Address [facility]-[id number] [address] [place] [address] Care Team Providers Care Fast Food Attendant Name Role Phone Shahbaz Monk Primary Care Provider + [phone] Encounter Details Date Type Department Care Team (Late st Contact Info) Description 01/10/2024 Orders Only [facility] - Family Medicine [address] [place] [address] Ref Prov, [place] [address] Social History Tobacco Use Types Packs/Day Years Used Date Smoking Tobacco: Former Cigarettes 0.5 33.2 1 990 - 09/11/2022 Smokeless Tobacco: Never Alcohol Use Standard Drinks/Week Comments Not Currently 0 (1 standard drink = 0.6 oz pure alcohol) Occasional 6 pack once a month [facility] Utilities Answer Date Recorded In the past 12 months has [facility] electric, gas, oil, or water company threatened [...] often do you attend chur ch or taoist services? Never 03/07/2023 Do you belong to [...] Answer Date Recorded Total Score 0 01/02/2024 [facility] of Occupat ional Health - [...] Recorded Do you need help finding a [facility] career center and/or a training [...] - Family Medicine [address] [place] [address] Shahbaz Monk DO [address], [facility] [place] [address] documented as of this encounter Procedures Procedure [...] documented as of this encounter Care Teams Fast Food Attendant Relationship Specialty Start Date End Date Shahbaz Monk DO [address] [facility] [place] [address] PCP - General Family Medicine 02/11/22 documented as of this encounter
--- OUTSIDE RECORDS SUMMARY | 2025-01-28 10:01 | XMS_ITS | Encounter Summary ---
Author Organization [employer] s tem Address [facility]-[id number] [address] [place] [address] Care Team Providers Care Gym Supervisor Name Role Phone Shahbaz Monk DO Primary Care Provider [phone] Encounter Details Date Type Department Care Team ([facility] Contact Info) Description 03/02/2022 [facility] Medicine [address] [place] [address] External, Scanning Provider Social History Tobacco Use [...] Upcoming Encounters Date Type Department Care Team ([facility] Contact Info) Description 05/21/2025 4:15 PM EST Office Visit [facility] Internal Medicine - Family Medicine [address] [place] [address] Shahbaz Monk DO [address], [place] [address] documented as of this encounter Procedures Procedure [...] BLOOD ORDERABLES Final Result Performing Organization Address City/State/[facility] Co de Phone Number MANUALLY TRANSCRIBED RESULTS documented in this encounter Visit Diagnoses Not on filedocumented in this encounter Care Teams Gym Supervisor Relationship Specialty Start Date End Date Shahbaz Monk DO [address] [place] [address] PCP - General Family Medicine 02/11/22 documented as of this encounter
--- OUTSIDE RECORDS SUMMARY | 2025-01-28 10:02 | XMS_ITS | Encounter Summary ---
Author Organization [facility] [employer] Sys tem Address [id number] [address] [place] [address] Care Team Providers Care Soup Person Name Role Phone Shahbaz Monk Primary Care Provider + [phone] Encounter Details Date Type Department Care Team (Late st Contact Info) Description 02/27/2024 Orders Only [facility] Internal Medicine - Family Medicine [address] [place] [address] Ref Prov, [place] [address] Social History Tobacco Use Types Packs/Day Years Used Date Smoking Tobacco: Former Cigarettes 0.5 33.2 1 990 - 09/11/2022 Smokeless Tobacco: Never Alcohol Use Standard Drinks/Week Comments Not Currently 0 (1 standard drink = 0.6 oz pure alcohol) Occasional 6 pack once a month [facility] Utilities Answer Date Recorded In the past 12 months has [facility] electric, gas, oil, or water [...] often do you attend chur ch or lutheran services? Never 03/07/2023 Do you belong to any clubs o r organizations such as confucianism groups, unions, fraternal or athletic groups, or [...] Answer Date Recorded Total Score 0 01/02/2024 [facility] - Occupational [...] Medicine - Family Medicine [address] [place] [address] Shahbaz Monk DO [address], [place] [address] documented as of this encounter Procedures Procedure [...] documented as of this encounter Care Teams Soup Person Relationship Specialty Start Date End Date Shahbaz Monk DO [address] [facility] [place] [address] PCP - General Family Medicine 02/11/22 documented as of this encounter
--- OUTSIDE RECORDS SUMMARY | 2025-01-28 10:02 | XMS_ITS | Encounter Summary ---
Author Organization [facility] [employer] Address [id number] [address] [place] [address] Care Team Providers Care Municipal Court Judge Name Role Phone NatyShahbaz quintero Molina PERKINS Primary Care Provider + [phone] Encounter Details Date Type Department Care Team (Late st Contact Info) Description 02/24/2024 Orders Only [facility] Internal Medicine - Family Medicine [address] [place] [address] Kath Irvin CMA Right ureteral stone Social History Tobacco Use Types Packs/Day Years Used Date Smoking Tobacco: Former Cigarettes 0.5 33.2 1 990 - 09/11/2022 Smokeless Tobacco: Never Alcohol Use Standard Drinks/Week Comments Not Currently 0 (1 standard drink = 0.6 oz pure alcohol) Occasional 6 pack once a month [facility] Utilities Answer Date Recorded In the past [...] often do you attend chur ch or samaritan services? Never 03/07/2023 Do you belong to [...] Answer Date Recorded Total Score 0 01/02/2024 [facility] - Occupational Stress [...] Recorded Do you need help finding a [facility] and/or a training [...] - Family Medicine [address] [place] [address] Shahbaz Monk DO [address], [place] [address] documented as of this encounter Procedures Procedure Name Priority Date/Time Associated Diagnosis Comments AMB REFERRAL TO UROLOGY Routine 02/24/2024 8:42 AM EDT Right ureteral stone URINE CULTURE Routine 02/23/2024 2:01 PM EDT URINALYSIS Routine 02/23/2024 1:40 PM EDT documented in this encounter Results * Ambulatory referral to Urology (02/24/2024 8:42 AM EDT) us Itzel White APRN-DIE CAST ENGINEER OUTPATIENT REFERRAL [place] [facility]Z Final Result Performing Organization Address [facility] Co de Phone Number MANUALLY TRANSCRIBED RESULTS * Urine Culture (02/23/2024 2:01 PM EDT) Urine us Not In System Ref Prov MICROBIOLOGY - GENERAL OR DERABLES Final Result Performing Organization Address [facility] Co de Phone Number [...] documented as of this encounter Care Teams Municipal Court Judge Relationship Specialty Start Date End Date Shahbaz Monk DO [address], [place] [address] PCP - General Family Medicine 02/11/22 documented as of this encounter
--- OUTSIDE RECORDS SUMMARY | 2025-01-28 10:07 | XMS_ITS | CCD ---
Author Organization [facility] Care Team Providers Care Teaching Music Lessons Name Role Phone Christina Apodaca Unavailable Unavailable [...] Unavailable Furlong Shahbaz PERKINS Primary Care Provider [phone] Kiarra Min Attending Unavailable Kiarra Min Attending Unavailable JORGE GIBBS Referring Unavailable Kiarra Min Attending Unavailable Kiarra Min Admitting Unavailable Furlong DOShahbaz Primary Care Provider STEVEN PADILLA Attending Unavailable STEVEN PADILLA Attending Unavailable Kiarra Min Attending Unavailable Galelida, Kiarra Gant Attending Unavailable Kiarra Min Admitting Unavailable Giedraitis , Andondina Dela Cruz Attending Unavailable Giedraitis , Andrius Dela Cruz Attending Unavailable Giedraitis , Andrius Jose De Jesus Attending Unavailable Giedraitis , Andrius Jose De Jesus Attending Unavailable Giedraitis , Andrius Jose De Jesus Attending Unavailable Giedraitis , Andrius Dela Cruz Attending Unavailable JORGE GIBBS Attending Unavailable FURLONG, SHAHBAZ [...] Unavailable FURLONG, SHAHBAZ G Primary Care Unavailable Medications Current Medications Medication Drug Class(es) Dates Sig (Normalized) Sig (Original) acetaminophen 325 mg / HYDROcodone bitartrate 5 mg oral tablet (13 sources) Opioid Agonist Start: 12-03-2024 HYDROcodone-acetam inophen (NORCO) 5-325 mg per tablet prn 12/03/2024 Active Start: 02-17-2024 End: 02-22-2024 take 1 tablet by mouth every six hours as needed HYDROcodone-acetaminophen (NORCO) 5-325 mg per tablet Take 1 [...] sources) HMG-CoA Reductase Inhibitor Start: 05-03-2023 End: 11-06-2024 take 1 tablet by mouth once daily in the morning atorvastatin (LIPITOR) 20 mg tablet TAKE 1 TABLET BY MOUTH EVERY MORNING 90 tablet 1 11/06/2024 Active azilsartan medoxomil 40 mg oral tablet (15 sources) Angiotensin 2 Receptor Luiza Start: 07-11-2023 End: 01-02-2024 take 1 tablet by mouth once daily azilsartan medoxomiL (EDARBI) 40 mg tablet Indications: hypertension Indications: high blood pressure. TAKE 1 TABLET BY MOUTH DAILY 0 08/15/2023 Active baclofen 10 mg oral tablet (5 sources) gamma-Aminobutyric Acid-ergic Agonist Start: 09-05-2024 baclofen (LIORESAL) 10 mg tablet 09/05/2024 Active fenofibrate 160 mg oral tablet [...] 400 mg oral tablet (20 sources) Start: 08-31-2023 End: 01-14-2025 take 1 tablet by mouth in the morning magnesium oxide (MAGOX) 400 mg tablet Take 1 tablet (400 mg total) by mouth in the morning. 100 tablet 1 01/14/2025 Active meloxicam 7.5 mg oral tablet (5 sources) Nonsteroidal Anti-inflammatory Drug Start: 09-05-2024 meloxicam (MOBIC) 7.5 mg tablet Take 1 tablet (7.5 mg total) by mouth. 09/05/2024 Active 24 hr metoprolol succinate 50 mg extended release oral tablet (20 sources) beta-Adrenergic Luiza Start: 08-12-2023 End: 12-24-2024 take 0.5 tablet by mouth once daily in the morning, then take 1 tablet by mouth once daily in the morning metoprolol succinate XL (TOPROL XL) 50 mg 24 hr tablet Take 0.5 tablets (25 mg total) by mouth every morning. TAKE 1 TABLET BY MOUTH ONCE DAILY EVERY MORNING 12/24/2024 Active Start: 05-03-2023 End: 08-12-2023 take 1 [...] Daily, # 90 tab(s), Refills(s) 3, Pharmacy: [facility], 168, cm, 03/01/24 15:29:00 EDT, Height/Length Dosing, 102, kg, 03/01/24 15:29:00 EDT, Weight Dosing Start Date: 03/01/24 Status: Ordered Start: 05-03-2023 End: 04-29-2024 take 1 tablet by mouth in the morning oxybutynin (DITROPAN) 5 mg tablet Indications: Urinary urgency TAKE 1 TABLET BY MOUTH IN THE MORNING 90 tablet 1 04/29/2024 Active SEMAGLUTIDE, WEIGHT LOSS, SUBQ (20 sources) inject 1.8 mg by subcutaneous injection every week SEMAGLUTIDE, WEIGHT LOSS, SUBQ Inject 1.8 mg under the skin once a week. Active inject 1.2 mg by sub cutaneous injection every week SEMAGLUTIDE, WEIGHT LOSS, SUBQ Inject 1. 2 mg under the skin once a week. Active tamsulosin hydrochloride 0.4 mg oral capsule (15 sources) alpha-Adrenergic Luiza Start: 05-28-2024 take 1 capsule by mouth once daily tamsulosin (FLOMAX) 0.4 mg capsule Take 1 capsule (0.4 mg total) by mouth nightly. Has questions 05/28/2024 Active Start: 05-24-2024 take 1 capsule by [facility] once daily Flomax 0.4 mg Cap 0.4 mg = 1 cap(s), Oral, Daily, # 30 cap(s), Refills(s) 11, Pharmacy: [facility], 168, cm, 05/24/24 9:22:00 EST, Height/Length Dosing, 102.6, kg, 05/24/24 9:22:00 EST, Weight Dosing Start Date: 05/24/24 Status: Ordered Start: 02-23-2024 take 1 capsule by [facility] once daily Flomax 0.4 mg Cap 0.4 mg = 1 cap(s), Oral, Daily, # 30 cap(s), Refills(s) 11, Pharmacy: [facility], 168, cm, 02/23/24 10:12:00 EDT, Height/Length [...] 06/21/2023 Discontinued (Therapy completed) polyethylene glycol 3350 57293 mg powder for oral solution (9 sources) [...] Problem Classification Problem Date Documented Date Episodic/Chronic Cardiac dysrhythmias (1 source) Multiple premature ventricular complexes; Translations: [Ventricular premature depolarization] 12-24-2024 Chronic Cardiac dysrhythmias (3 sources) Palpitations; Translations: [Palpitations] Onset: 12-24-2024 12-24-2024 Episodic Disorders of lipid metabolism (20 sources) Hypercholesterolemia; Translations: [Pure hypercholesterolemia, unspecified] Onset: 06-29-2018 03-02-2022 Chronic Esophageal disorders (20 sources) Gastroesophageal reflux disease; Translations: [Gastro-esophageal reflux disease without esophagitis] Onset: 06-29-2018 03-02-2022 Chronic Essential hypertension (20 sources) Essential hypertension; Translations: [Essential (primary) hypertension] Onset: 06-29-2018 03-02-2022 Chronic Genitourinary symptoms and ill-defined conditions (11 sources) Microscopic hematuria; Translations: [Asymptomatic microscopic hematuria] Onset: 02-23-2024 Episodic Heart valve disorders (1 source) Irregular heart beat Onset: 12-24-2024 Episodic Hyperplasia of prostate (5 sources) Benign [...] (BMI) 36.0-36.9, adult] Onset: 04-03-2024 Chronic Other screening for suspected conditions (not mental disorders or infectious disease) (3 sources) Encounter for screening for malignant neoplasm of prostate; Translations: [Screening for malignant neoplasm done] Onset: 03-01-2024 Episodic Other upper respiratory infections (1 source) Chronic sinusitis, unspecified; Translations: [Chronic sinusitis, unspecified] Onset: 11-23-2017 Chronic Residual codes; unclassified (1 source) Sleep apnea; Translations: [Sleep apnea, unspecified] 01-14-2025 Chronic Residual codes; unclassified (2 sources) Tobacco [...] 2 Resolved: 2 Episodic Malaise and fatigue (13 sources) Fatigue; Translations: [Other fatigue] Onset: 4 04-03-2024 Episodic Mood disorders (20 sources) Mood disorders Onset: 4 Resolved: 5 05-28-2024 Other acquired deformities (1 source) Spondylolisthesis L5/S1 level; Translations: [Spondylolisthesis, lumbosacral region] Episodic Other acquired deformities (1 source) Spondylolisthesis, lumbar region; Translations: [Spondylolisthesis, lumbar region] Onset: 4 Episodic Other aftercare (1 source) Other intermediate project manager (current) drug therapy; Translations: [OTH ASSOCIATE DIRECTOR CAREER SERVICES CURRENT DRUG THERAPY] Onset: 1 Episodic Other [...] Translations: [Abdominal distension (gaseous)] 10-10-2023 Episodic Other infections; including parasitic (20 sources) [...] calories] Onset: 9 Resolved: 4 04-03-2024 Chronic Spondylosis; intervertebral disc disorders; other back problems (20 sources) Lumbar disc prolapse with radiculopathy; Translations: [Intervertebral disc disorders with radiculopathy, lumbar region] Onset: 3 12-03-2022 Episodic Sprains and strains (1 source) Sprain of unspecified site of right knee, initial encounter; Translations: [SPRAIN UNS SITE RT KNEE INITIAL] Onset: 1 Episodic Results Test Name Value Interpretation Reference Range Facility POCT EKn 12-24-2024 [facility] Ambulatory Visit Summaryon 0 10-04-2024 Ambulatory Visit [...] PM EST With: Where: [facility] [address] [place] [address] [place] [address]- Tuesday2025 3:20 PM EST With: STEVEN PADILLA PA-C Where: [facility] [address] [place] [address] [place] [address]- You Need to Schedule the Following Appointments Follow Up with STEVEN PADILLA PA-C, [place] When: In 9 months Comments: w/ PSA Where: [address] [place] [address] Medications What How Much When Why Instructions Unchanged oxybutynin (oxybutynin 5 mg ER Tab) 1 Tablets By Mouth Every day Pickup at [facility] Unchanged acetaminophen-hydrocod one (acetaminophen-hydroco done 325 [...] physician if questions or concerns Pharmacy Information [facility]: [address] [place] [id number] [phone] Allergies No Known Allergies Problems Ongoing - [...] during the (more content not included)... [facility] Urology Office/Clinic Noteon 10-04-2024 Urology Office/Clinic Note [...] E&M of Est. Patient Moderate 30-39 Min 44144 2. Screening PSA (prostate specific antigen) (Z12.5: [...] E&M of Est. Patient Moderate 30-39 Min 37238 3. History of kidney stones (Z87.442: Personal history of urinary calculi) 01/08/[address] [facility] [address] w/o con - mild [...] develop more stones. [facility] -Increase fluids -Add lemon/capitan grande band to fluid intake -Call our office for any stone symptoms Ordered: E&M of Est. Patient Moderate 30-39 Min 89360 4. Asymptomatic microscopic hematuria (R31.21: Asymptomatic microscopic hematuria) 02/23/24 micro UA - RBC 0-3, cx negative Unable to provide urine sample today -Pt knows to call for gross hematuria Ordered: E&M of Est. Patient Moderate 30-39 Min 63899 Orders: oxybutynin, 5 mg = 1 tab(s), Oral, Daily, # 90 tab(s), Refills(s) 3, Pharmacy: [facility], 168, cm, 10/04/24 14:50:00 EDT, Height/Length Dosing, 100.5, kg, 10/04/24 14:50:00 EDT, Weight Dosing Follow-up With When Contact Information STEVEN PADILLA PA-C, URJasen In 9 months [address] [place] [address] Additional Instructions: w/ PSA Patient [...] Daily, 11 refills (more content not included)... [facility] Comment on above: Result Comment: Elec tronically Signed By: Mechelle BARCENAS, Kiarra Gant\.br\Date and Time Signed: 10/04/24 15:14 EDT Reminderson 08-08-2024 Reminders Reminders From: Carlie Ramirez To: EU - Administrative; Sent: 05/24/2024 15:40:45 EST Show up: 07/14/2024 15:40:00 EST Subject: Ambulatory Reminder Due Date/Time: 09/11/2024 15:40:00 EDT Reminder/Recall Patient needs scheduled with AG for a 3-4m f/u in [place], schedule not built for her yet. due back the beginning of September, Pt has been scheduled for 09/2024 w/AG [facility] COMPREHENSIVE METABOLIC PANE Clint 05-28-2024 Albumin [Mass/Vol] 4.5 g/dL Normal 3.2-5.3 [facility] Comment on above: Performed By: #### C , 80415-0 #### [facility] ([id number]) [address] [place] [address] ALP [Catalytic activity/Vol] 75 U/L Normal 39-130 [facility] Comment on above: Performed By: #### Neyda LAU, 54646-8 #### [facility] ([id number]) [address], [address] [place] [address] ALT [Catalytic activity/Vol] 29 U/L Normal 0-40 [facility] Comment on above: Performed By: #### Neyda LAU, 13734-7 #### [facility] ([id number]) [address], [address] [place] [address] Anion gap [Moles/Vol] 10 mmol/L Normal 5-15 [facility] Comment on above: Performed By: #### Neyda LAU, 52918-3 #### [facility] ([id number]) [address], [address] [place] [address] AST [Catalytic activity/Vol] 28 U/L Normal 0-41 [facility] Comment on above: Performed By: #### Neyda LAU, 45821-5 #### [facility] ([id number]) [address], [address] [place] [address] Bilirubin [Mass/Vol] 0.4 mg/dL Normal 0.3-1.2 [facility] Comment on above: Performed By: #### Neyda LAU, 79611-7 #### [facility] ([id number]) [address], [address] [place] [address] Calcium [Mass/Vol] 10.4 mg/dL Normal 8.5-10.5 [facility] Comment on above: Performed By: #### Neyda LAU, 06927-0 #### [facility] ([id number]) [address], [address] [place] [address] Chloride [Moles/Vol] 105 mmol/L Normal 98-109 [facility] Comment on above: Performed By: #### Neyda LAU, 88516-3 #### [facility] ([id number]) [address], [address] [place] [address] CO2 [Moles/Vol] 26 mmol/L Normal 22-32 [facility] Comment on above: Performed By: #### C SID [id number] #### [facility] ([id number]) [address], [address] [place] [address] Creatinine [Mass/Vol] 1.05 mg/dL Normal 0.60-1.30 [facility] Comment on above: Result Comment: METH OD TRACEABLE TO IDMS STANDARD Performed By: #### C SID [id number] #### [facility] ([id number]) [address], [address] [place] [address] GFR/1.73 sq M.predicted among non-blacks MDRD (S/P/Bld) [Vol rate/Area] 86 mL/min/{1.73_m2} Normal >59 [facility] Comment on above: Result Comment: Reported eGFR is based on the CKD-EPI 2020 equation that does not use a race coefficient. Performed By: #### C SID [id number] #### [facility] ([id number]) [address], [address] [place] [address] Glucose [Mass/Vol] 132 mg/dL High 65-99 [facility] Comment on above: Performed By: #### Neyda LAU 24070-2 #### [facility] ([id number]) [address], [address] [place] [address] Potassium [Moles/Vol] 4.2 mmol/L Normal 3.5-5.0 [facility] Comment on above: Performed By: #### Neyda LAU, 71732-0 #### [facility] ([id number]) [address], [address] [place] [address] Protein [Mass/Vol] 7.6 g/dL Normal 6.0-8.0 [facility] Comment on above: Performed By: #### Neyda LAU, 02084-5 #### [facility] ([id number]) [address], [address] [place] [address] Sodium [Moles/Vol] 141 mmol/L Normal 134-146 [facility] Comment on above: Performed By: #### Neyda LAU, 98650-4 #### [facility] ([id number]) [address], [address] [place] [address] Urea nitrogen [Mass/Vol] 18 mg/dL Normal 5-23 [facility] Comment on above: Performed By: #### Neyda LAU, 76778-3 #### [facility] ([id number]) [address], [address] [place] [address] Lipid 1996 panelon 4 Cholesterol [Mass/Vol] 118 mg/dL Low 150-200 [facility] Comment on above: Performed By: #### Neyda LAU, 25644-3 #### [facility] ([id number]) [address], [address] [place] [address] Cholesterol in HDL [Mass/Vol] 27 mg/dL Low >39 [facility] Comment on above: Result Comment: HDL <40 mg/dL - High Risk HDL > or = 40mg/dL- Desirable HDL >60 mg/dL - Negative Risk Performed By: #### Neyda LAU, 25077-4 #### [facility] ([id number]) [address], [address] [place] [address] Cholesterol in LDL [Mass/Vol] 44 mg/dL Normal <130 [facility] Comment on above: Result Comment: LDL <100 mg/dL - Desirable LDL >160 mg/dL - High Risk Performed By: #### C SID, 50195-5 #### [facility] ([id number]) [address], [address] [place] [address] Cholesterol in VLDL [Mass/Vol] 47 mg/dL High 0-30 [facility] Comment on above: Performed By: #### Neyda LAU, 09747-1 #### [facility] ([id number]) [address], [address] [place] [address] CHOLESTEROL:HDL 4.4 Normal 1.0-5.0 [facility] Comment on above: Performed By: #### Neyda LAU, 34569-4 #### [facility] ([id number]) [address], [address] [place] [address] Triglyceride [Mass/Vol] 233 mg/dL High 27-150 [facility] Comment on above: Performed By: #### Neyda LAU, 04122-4 #### [facility] ([id number]) [address], [address] [place] [address] Ambulatory Visit Summaryon 1 07-25-2023 Ambulatory Visit [...] for choosing us for your care. [facility] CHEMISTRYOrdered By: SYSTEM SYSTEM on 05-24-2024 [...] used for this result was chemiluminescence using [employer]'s Access Hybritech PSA reagent. PSA Totalon 05-24-2024 Prostate specific Ag [Mass/Vol] 0.8 ng/mL Normal 0.1-3.5 [facility] Comment on above: Result Comment: The concentration of PSA determined by different manufacturers can vary due to differences in assay methods and reagent specificity. Values obtained from different assay methods cannot be used interchangeably. The methodology used for this result was chemiluminescence using Ludwin Erna's Access Hybritech PSA reagent. Performed By: #### 1 [id number] #### [facility] [address] [place] [address] Urology Office/Clinic Noteon 05-24-2024 Urology Office/Clinic Note [...] (Z87.442: Personal history of urinary calculi) 01/08/[address] [facility] [address] w/o con - mild [...] stone within right ureter. Pt went to [facility] ER on 01/08/24 due to pain. [...] ensure stone passage. Pt then went to [facility] ER on 02/27/24 for gross hematuria, abdominal/scrotal pain and also experienced urinary frequency and urgency. No labs or imaging were completed at that visit. Advised pt that he most likely was passing a stone at that time. IVP completed 03/06/24, no stone identified. This is patient's first stone event. Today, he denies further stone events. Denies gross hematuria. -Increase fluids -Add lemon/capitan grande band to fluid intake -Call our office for [...] by me. Authentic (more content not included)... [facility] Comment on above: Result Comment: Elec tronically Signed By: Kiarra Christiansen\.br\Date and Time Signed: 05/24/24 11:08 EST\.br\Electronically Co-Signed By: Stefany Farooq PA-C\.br\Date and Time Co-Signed: 05/24/24 10:54 EST Provider Letteron 03-06-2024 Provider Letter Provider Letter March 06, 2024 [address] [place] [id number] : 1975 To Whom It May Concern, Please excuse above patient from work. Date of appointment: From: 03/06/2024 To: _ May Return to Work On:03/06/2024 Restrictions: none Comments: Any questions, please call our office Sincerely, [facility] [address] [facility] [place] [address] [facility] Ambulatory Visit Summaryon 0 03-01-2024 Ambulatory Visit [...] With: Kiarra Christiansen Where: [facility] [address] [place] [id number]- Medications What How Much When Why Instructions [...] for choosing us for your care. [facility] Urology Office/Clinic Noteon 03-01-2024 Urology Office/Clinic [...] (Z87.442: Personal history of urinary calculi) 01/08/[address] [facility] [address] w/o con - mild R hydronephrosis due to a 5mm proximal R ureteral stone near the UPJ. No additional upper or lower urinary tract calculi are seen on either side. There are no other acute findings in the abdomen or pelvis 02/16/24 KUB - no appreciable urinary tract calculi Pt went to [facility] ER on 01/08/24 due to pain. [...] not had pain. Pt then went to [facility] ER on 02/27/24 for gross hematuria, [...] Mt. Dew. Discussed increasing fluids and adding lemon/capitan grande band to patient's regimen, pt verbalizes understanding. Briefly discussed metabolic workup with patient should he develop another stone. -IVP now at [facility], call patient with results -If a stone is present, we will set patient up with appt with Dr. Nunn to discuss treatment. If no stone on IVP, this will ensure stone passage and pt to follow up as scheduled -Increase fluids, avoid bladder irritants -Add lemon/capitan grande band, lemonade to fluid intake -Call our office for any stone symptoms -F/U 1 year with KUB/KECIA Ordered: E&M of Est. Patient Moderate 30-39 Min 53553 2. Gross hematuria (R31.0: Gross hematuria) UA today negative for blood or infection -See #1 Ordered: Creatinine E&M of Est. Patient Moderate 30-39 Min 03254 Urnls Dip Stick Auto w/o Microscopy POC 03965 XR IVP 3. BPH with obstruction/lower urinary [...] daily -Increase (more content not included)... [facility] Comment on above: Result Comment: Elec [...] Locations R1: This test was performed at: [facility], [address] [place] [address], [facility]- , , [facility] Comment on above: Performed By: #### 2 [id number] #### [facility] [address] [place] [address] Ambulatory Visit Summaryon 0 02-23-2024 Ambulatory Visit [...] With: Kiarra Christiansen Where: [facility] [address] [facility] [place] [address]- Medications What How Much When Instructions Unchanged [...] for choosing us for your care. [facility] Provider Letteron 02-23-2024 Provider Letter Provider Letter February 23, 2024 J[address]EL [address] [place] [phone] : 1975 To Whom It May Concern, Please excuse above patient from work. Date of appointment: From: 02/23/2024 To: _ May Return to Work On:02/23/2024 Restrictions: none Comments: Any questions, please call our office Sincerely, [facility] [address] [facility] [place] [address] [facility] URINALYSISOrdered By: SYSTEM SYSTEM on 02-23-2024 Bilirubin Ql (U) Negative Normal Negativemg/ d L [facility] UA Auto SS Clarity (U) Ex.Turbid *ABN* (02/23/24 11:17 AM) Invalid Interpretation Code Clear [facility] UA Auto SS Color (U) Yellow 1 (02/23/24 11:17 AM) Normal Yellow [facility] UA Auto SS Comment on above: Interpretive Data: M icroscopic readings are only performed on those samples that meet specific criteria set forth by [facility]. Crystals.amorphous Computer assisted Ql (U) [...] AM) Invalid Interpretation Code 5.0 - 9.0 [facility] UA Auto SS Protein Ql (U) Negative Normal Negativemg/d L [facility] UA Auto SS RBC Ql (U) 0-3 graded/HPF Normal 0-3graded/HP F [facility] UA Auto SS Specific gravity (U) [Rel density] 1.025 *NA* (02/23/24 11:17 AM) Invalid Interpretation Code 1.005 - 1.030 [facility] UA Auto SS Urobilinogen (U) [Mass/Vol] Negative Normal Negativemg/d L [facility] UA Auto SS URINALYSISOrdered By: Kathy Busch on 02-23-2024 UA Spec Desc Clean Catch (02/23/24 11:17 AM) Normal [facility] UA Auto SS Urinalysis with Microon 02-11 Bilirubin Ql (U) Negative Normal Negative [facility] Comment on above: Performed By: #### 4 [id number] #### [facility] [address] [place] [id number] Clarity (U) Ex.Turbid Abnormal Clear [facility] Comment on above: Performed By: #### 4 [id number] #### [facility] [address] [place] [address] Color (U) Yellow Normal Yellow [facility] Comment on above: Result Comment: Micr oscopic readings are only performed on those samples that meet specific criteria set forth by [facility]. Performed By: #### 4 [id number] #### [facility] [address] [place] [address] Crystals.amorphous Computer assisted Ql (U) Present Abnormal [facility] Comment on above: Performed By: #### 4 [id number] #### [facility] [address] [place] [address] Glucose Ql (U) Negative Normal Negative [facility] Comment on above: Performed By: #### 4 [id number] #### [facility] [address] [place] [address] Hemoglobin Auto test strip (U) [Mass/Vol] Negative Normal Negative [facility] Comment on above: Performed By: #### 4 [id number] #### [facility] [address] [place] [address] Ketones Auto test strip Ql (U) Negative Normal Negative [facility] Comment on above: Performed By: #### 4 [id number] #### [facility] [address] [place] [address] Leukocyte esterase Auto test strip Ql (U) Negative Normal Negative [facility] Comment on above: Performed By: #### 4 [id number] #### [facility] [address] [place] [address] Mucus Auto Ql (U) 1+ CD:[id number] Abnormal Negative F [facility] Comment on above: Performed By: #### 4 [id number] #### [facility] [address] [place] [address] Nitrite Auto test strip Ql (U) Negative Normal Negative [facility] Comment on above: Performed By: #### 4 [id number] #### [facility] [address] [place] [address] pH (U) 5.0 [pH] Invalid Interpretation Code 5.0-9.0 [facility] Comment on above: Performed By: #### 4 [id number] #### [facility] [address] [place] [address] Protein Ql (U) Negative Normal Negative [facility] Comment on above: Performed By: #### 4 [id number] #### [facility] [address] [place] [address] RBC Ql (U) 0-3 Normal 0-3 [facility] Comment on above: Performed By: #### 4 [id number] #### [facility] [address] [place] [address] Specific gravity (U) [Rel density] 1.025 Invalid Interpretation Code 1.005-1.030 [facility] Comment on above: Performed By: #### 4 [id number] #### [facility] [address] [place] [address] Urobilinogen (U) [Mass/Vol] Negative Normal Negative [facility] Comment on above: Performed By: #### 4 [id number] #### [facility] [address] [place] [address] Type of Urine collection method Clean Catch Normal [facility] Comment on above: Performed By: #### 4 [id number] #### [facility] [address] [place] [address] COMPREHENSIVE METABOLIC PANE [facility] 08-30-2023 Albumin [Mass/Vol] 4.1 g/dL Normal 3.2-5.3 [facility] Comment on above: Performed By: #### Neyda LAU, [id number] #### [facility] ([id number]) [address], [address] [place] [address] ALP [Catalytic activity/Vol] 32 U/L Low 39-130 [facility] Comment on above: Performed By: #### Neyda LAU, 92717-2 #### [facility] ([id number]) [address] [place] [address] ALT [Catalytic activity/Vol] 58 U/L High 0-40 [facility] Comment on above: Performed By: #### C SID, [id number] #### [facility] ([id number]) [address] [place] [address] Anion gap [Moles/Vol] 9 mmol/L Normal 5-15 [facility] Comment on above: Performed By: #### C SID, #### [facility] ([id number]) [address], [address] [place] [address] AST [Catalytic activity/Vol] 40 U/L Normal 0-41 [facility] Comment on above: Performed By: #### Neyda LAU, #### [facility] ([id number]) [address], [address] [place] [address] Bilirubin [Mass/Vol] 0.3 mg/dL Normal 0.3-1.2 [facility] Comment on above: Performed By: #### Neyda LAU, #### [facility] ([id number]) [address], [address] [place] [address] Calcium [Mass/Vol] 9.7 mg/dL Normal 8.5-10.5 [facility] Comment on above: Performed By: #### Neyda LAU, #### [facility] ([id number]) [address], [address] [place] [address] Chloride [Moles/Vol] 107 mmol/L Normal 98-109 [facility] Comment on above: Performed By: #### Neyda LAU, #### [facility] ([id number]) [address], [address] [place] [address] CO2 [Moles/Vol] 26 mmol/L Normal 22-32 [facility] Comment on above: Performed By: #### Neyda LAU, #### [facility] ([id number]) [address], [address] [place] [address] Creatinine [Mass/Vol] 1.18 mg/dL Normal 0.60-1.30 [facility] Comment on above: Result Comment: METH OD TRACEABLE TO IDMS STANDARD Performed By: #### Neyda LAU, #### [facility] ([id number]) [address], [address] [place] [address] GFR/1.73 sq M.predicted among non-blacks MDRD (S/P/Bld) [Vol rate/Area] 75 mL/min/{1.73_m2} Normal >59 [facility] Comment on above: Result Comment: Reported eGFR is based on the CKD-EPI 2020 equation that does not use a race coefficient. Performed By: #### Neyda LAU, #### [facility] ([id number]) [address], [address] [place] [address] Glucose [Mass/Vol] 92 mg/dL Normal 65-99 [facility] Comment on above: Performed By: #### Neyda LAU, #### [facility] ([id number]) [address], [address] [place] [address] Potassium [Moles/Vol] 4.1 mmol/L Normal 3.5-5.0 [facility] Comment on above: Performed By: #### Neyda LAU, #### [facility] ([id number]) [address], [address] [place] [address] Protein [Mass/Vol] 6.8 g/dL Normal 6.0-8.0 [facility] Comment on above: Performed By: #### Neyda LAU, #### [facility] ([id number]) [address], [address] [place] [address] Sodium [Moles/Vol] 142 mmol/L Normal 134-146 [facility] Comment on above: Performed By: #### Neyda LAU, #### [facility] ([id number]) [address], [address] [place] [address] Urea nitrogen [Mass/Vol] 23 mg/dL Normal 5-23 [facility] Comment on above: Performed By: #### Neyda LAU, #### [facility] ([id number]) [address] [place] [address] Comprehensive metabolic pane clint 08-30-2023 Albumin [Mass/Vol] 4.1 g/dL 3.2 - 5.3 g/dL [facility] ALP [Catalytic activity/Vol] 32 U/L Low 39 - 130 U/L [facility] ALT No additional P-5'-P [Catalytic activity/Vol] 58 U/L High 0 - 40 U/L [facility] Anion gap [Moles/Vol] 9 mmol/L 5 - 15 mmol/L [facility] AST [Catalytic activity/Vol] 40 U/L 0 - 41 U/L [facility] Bilirubin [Mass/Vol] 0.3 mg/dL 0.3 - 1 .2 mg/dL [facility] Calcium [Mass/Vol] 9.7 mg/dL 8.5 - 10. 5 mg/dL [facility] Chloride [Moles/Vol] 107 mmol/L 98 - 10 9 mmol/L [facility] CO2 [Moles/Vol] 26 mmol/L 22 - 32 mmol/L [facility] Creatinine [Mass/Vol] 1.18 mg/dL 0.60 - 1.30 mg/dL [facility] Comment on above: METHOD TRACEABLE TO [facility] STANDARD eGFR (CKD-EPI)non-race dependent 75 - PINF [facility] Comment on above: Reported eGFR is based on the CKD-EPI 2020 equation that does not use a race coefficient. Glucose [Mass/Vol] 92 mg/dL 65 - 99 mg/dL [facility] Potassium [Moles/Vol] 4.1 mmol/L 3.5 - 5.0 mmol/L [facility] Protein [Mass/Vol] 6.8 g/dL 6.0 - 8.0 g/dL [facility] Sodium [Moles/Vol] 142 mmol/L 134 - 146 mmol/L [facility] Urea nitrogen [Mass/Vol] 23 mg/dL 5 - 23 mg/dL [facility] MAGNESIUMon 08-30-2023 Magnesium [Mass/Vol] 1.7 mg/dL Low 1.8-2.6 [facility] Comment on above: Performed By: #### C , [id number] #### [facility] ([id number]) [address], [address] [place] [address] Magnesiumon 08-30-2023 Magnesium [Mass/Vol] 1.7 mg/dL Low 1.8 - 2 .6 mg/dL [facility] No Panel Informationon 08-29 Interpretation and review of laboratory results Abnormal [facility] COVID Quick Testingon 2021 Result Negative [employer] Other COMPREHENSIVE METABOLIC PANE [facility] 06-02-2021 Albumin [Mass/Vol] 4.2 g/dL Normal 3.6-5.1 [facility] Comment on above: Performed By: #### 1 023, 7600 #### [facility] [place] [address] Interior Mechanic: Curtis Doan MD Albumin/Globulin [Mass ratio] 1.6 {ratio} Normal 1.0-2.5 [facility] Comment on above: Performed By: #### 1 0231, 7600 #### [facility] [place] [address] Interior Mechanic: Curtis Doan MD ALP [Catalytic activity/Vol] 44 U/L Normal 36-130 [facility] Comment on above: Performed By: #### 1 0231, 7600 #### [facility] [place] [address] Interior Mechanic: Curtis Doan MD ALT [Catalytic activity/Vol] 17 U/L Normal 9-46 [facility] Comment on above: Performed By: #### 1 0231, 7600 #### [facility] [place] [address] Interior Mechanic: Curtis Doan MD AST [Catalytic activity/Vol] 17 U/L Normal 10-40 [facility] Comment on above: Performed By: #### 1 0231, 7600 #### [facility] of [place] [address] Interior Mechanic: Curtis Doan MD Bilirubin [Mass/Vol] 0.3 mg/dL Normal 0.2-1.2 [facility] Comment on above: Performed By: #### 1 0231, 7600 #### [facility] [place] [address] Interior Mechanic: Curtis Doan MD Calcium [Mass/Vol] 9.6 mg/dL Normal 8.6-10.3 [facility] Comment on above: Performed By: #### 1 023, 7600 #### [facility] of [place] [address] Interior Mechanic: Curtis Doan MD Chloride [Moles/Vol] 107 mmol/L Normal 98-110 [facility] Comment on above: Performed By: #### 1 023, 7600 #### [facility] [place] [address] Interior Mechanic: Curtis Doan MD CO2 [Moles/Vol] 26 mmol/L Normal 20-32 [facility] Comment on above: Performed By: #### 1 0231, 7600 #### [facility] [place] [address] Interior Mechanic: Curtis Doan MD Creatinine [Mass/Vol] 0.89 mg/dL Normal 0.60-1.35 [facility] Comment on above: Performed By: #### 1 0231, 7600 #### [facility] [place] [address] Interior Mechanic: Curtis Doan MD eGFR NON-AFR. BELGIAN 101 mL/min/1.73m2 Normal > OR = 60 [facility] Comment on above: Performed By: #### 1 0231, 7600 #### [facility] [place] [address] Interior Mechanic: Curtis Doan MD GFR/1.73 sq M.predicted among blacks MDRD (S/P/Bld) [Vol rate/Area] 117 mL/min/{1.73_m2} Normal > OR = 60 [facility] Comment on above: Performed By: #### 1 023, 7600 #### [facility] of [address], [address] [place] [address] Interior Mechanic: Curtis Doan MD Globulin (S) [Mass/Vol] 2.7 g/dL Normal 1.9-3.7 [facility] Comment on above: Performed By: #### 1 023, 7600 #### [facility] of [address], [address] [place] [address] Interior Mechanic: Curtis Doan MD Glucose [Mass/Vol] 103 mg/dL Normal 65-139 [facility] Comment on above: Result Comment: Non-fasting reference interval For someone without known diabetes, a glucose value between 100 and 125 mg/dL is consistent with prediabetes and should be confirmed with a follow-up test. Performed By: #### 1 023, 7600 #### [facility] of [address], [address] [place] [address] Interior Mechanic: Curtis Doan MD Potassium [Moles/Vol] 4.1 mmol/L Normal 3.5-5.3 [facility] Comment on above: Performed By: #### 1 023, 7600 #### [facility] of [address], [address] [place] [address] Interior Mechanic: Curtis Doan MD Protein [Mass/Vol] 6.9 g/dL Normal 6.1-8.1 [facility] Comment on above: Performed By: #### 1 023, 7600 #### [facility] [address], [address] [place] [address] Interior Mechanic: Curtis Doan MD Sodium [Moles/Vol] 140 mmol/L Normal 135-146 [facility] Comment on above: Performed By: #### 1 023, 7600 #### [facility] [address], [address] [place] [address] Interior Mechanic: Curtis Doan MD Urea nitrogen [Mass/Vol] 27 mg/dL High 7-25 [facility] Comment on above: Performed By: #### 1 0231, 7600 #### [facility] [address], [address] [place] [address] Interior Mechanic: Curtis Doan MD Urea nitrogen/Creatinine [Mass ratio] 30 mg/mg High 6-22 [facility] Comment on above: Performed By: #### 1 023, 7600 #### [facility] [address], [address] [place] [address] Interior Mechanic: Curtis Doan MD LIPID PANEL, [facility] 12-2 Cholesterol [Mass/Vol] 123 mg/dL Normal <200 [facility] Comment on above: Order Comment: FASTI NG:NO FASTING: NO Performed By: #### 1 023, 7600 #### [facility] [place] [address] Interior Mechanic: Curtis Doan MD Cholesterol in HDL [Mass/Vol] 29 mg/dL Low > OR = 40 [facility] Comment on above: Order Comment: FASTI NG:NO FASTING: NO Performed By: #### 1 023, 7600 #### [facility] [place] [address] Interior Mechanic: Curtis Doan MD Cholesterol in LDL [...] LDL-C. Noman GAR et al. EARNESTINE. 2013;310(19): 3044-9602 (http://education.[employer].Everdream/faq/AOA430) Performed By: #### 1 023, 0 #### [facility] [address], [address] [place] [address] Interior Mechanic: Curtis Doan MD Cholesterol.total/Ch olesterol in HDL [Mass ratio] 4.2 {ratio} Normal <5.0 [facility] Comment on above: Order Comment: FASTI NG:NO FASTING: NO Performed By: #### 1 0231, 7600 #### [facility] [address], [address] [place] [address] Interior Mechanic: Curtis Doan MD NON HDL CHOLESTEROL 94 mg/dL (calc) Normal <130 [facility] Comment on above: Order Comment: FASTI NG:NO FASTING: NO Result Comment: For patients with diabetes plus 1 major ASCVD risk factor, treating to a non-HDL-C goal of <100 mg/dL (LDL-C of <70 mg/dL) is considered a therapeutic option. Performed By: #### 1 023, 0 #### [facility] [address], [address] [place] [address] Interior Mechanic: Curtis Doan MD Triglyceride [Mass/Vol] 397 mg/dL High <150 [facility] Comment on above: Order Comment: FASTI NG:NO FASTING: NO Result Comment: If a non-fasting specimen was collected, consider repeat triglyceride testing on a fasting specimen if clinically indicated. Alex et al. J. of Clin. Lipidol. 2015;9:129-169. Performed By: #### 1 023, 0 #### [facility] [address], [address] [place] [address] Interior Mechanic: Curtis Doan MD CBC AUTO DIFFon 05-15-2021 BASO # 0.0 103/ul Normal 0.0-0.1 [facility] Comment on above: Performed By: #### C BC #### [facility] [address] [place] [address] Dr. Diego Covarrubias Basophils/100 WBC (Bld) 0.5 % Normal 0.2-2.0 [facility] Comment on above: Performed By: #### C BC #### [facility] [address] [place] [address] Dr. Diego Covarrubias EO # 0.1 103/ul Normal 0.0-0.7 [facility] Comment on above: Performed By: #### C BC #### [facility] [address] [place] [address] Dr. Diego Covarrubias Eosinophils/100 WBC (Bld) 1.5 % Normal 0.9-7.0 [facility] Comment on above: Performed By: #### C BC #### [facility] [address] [place] [address] Dr. Diego Covarrubias Erythrocyte distribution width (RBC) [Ratio] 12.6 % Normal 11.0-15.0 [facility] Comment on above: Performed By: #### C BC #### [facility] [address] [place] [address] Dr. Diego Covarrubias Hematocrit (Bld) [Volume fraction] 41.9 % Critically low 42.0-54.0 [facility] Comment on above: Performed By: #### C BC #### [facility] [address] [place] [address] Dr. Diego Covarrubias Hemoglobin (Bld) [Mass/Vol] 14.2 g/dL Normal 14.0-18.0 [facility] Comment on above: Performed By: #### C BC #### [facility] [address] [place] [address] Dr. Diego Covarrubias IG # 0.03 10e3/ul Normal 0.00-0.03 [facility] Comment on above: Performed By: #### C BC #### [facility] [address] [place] [address] Dr. Diego Covarrubias IG % 0.5 % Normal 0.0-0.5 [facility] Comment on above: Performed By: #### C BC #### [facility] [address] [place] [address] Dr. Diego Covarrubias LYMPH # 2.0 103/ul Normal 1.2-3.8 [facility] Comment on above: Performed By: #### C BC #### [facility] [address] [place] [address] Dr. Diego Covarrubias Lymphocytes/100 WBC (Bld) 32.1 % Normal 20.5-60.0 [facility] Comment on above: Performed By: #### C BC #### [facility] [address] [place] [address] Dr. Diego Covarrubias MANUAL DIFF REQ NO Normal [facility] Comment on above: Performed By: #### C BC #### [facility] [address] [place] [address] Dr. Diego Covarrubias MCH (RBC) [Entitic mass] 31.5 pg Normal 25.9-34.0 [facility] Comment on above: Performed By: #### C BC #### [facility] [address] [place] [address] Dr. Diego Covarrubias MCHC (RBC) [Mass/Vol] 33.9 g/dL Normal 29.9-35.2 [facility] Comment on above: Performed By: #### C BC #### [facility] [address] [place] [address] Dr. Diego Covarrubias MCV (RBC) [Entitic vol] 92.9 fL Normal 80.0-94.0 [facility] Comment on above: Performed By: #### C BC #### [facility] [address] [place] [address] Dr. Diego Covarrubias MONO # 0.8 103/ul Normal 0.3-0.8 [facility] Comment on above: Performed By: #### C BC #### [facility] [address] [place] [address] Dr. Diego Covarrubias Monocytes/100 WBC (Bld) 13.5 % Critically high 1.7-12.0 [facility] Comment on above: Performed By: #### C BC #### [facility] [address] [place] [address] Dr. Diego Covarrubias NEUT # 3.2 103/ul Normal 1.4-6.5 [facility] Comment on above: Performed By: #### C BC #### [facility] [address] [place] [address] Dr. Diego Covarrubias Neutrophils/100 WBC (Bld) 51.9 % Normal 43.0-75.0 [facility] Comment on above: Performed By: #### C BC #### [facility] [address] [place] [address] [address] Diego Covarrubias Platelet mean volume (Bld) [Entitic vol] 9.6 fL Normal 9.5-13.5 [facility] Comment on above: Performed By: #### C BC #### [facility] [address] [place] [address] [address] Diego Covarrubias PLT 244 103/ul Normal 150-450 [facility] Comment on above: Performed By: #### C BC #### [facility] [address] [place] [address] [address] Diego Covarrubias RBC 4.51 106/ul Critically low 4.70-6.10 [facility] Comment on above: Performed By: #### C BC #### [facility] [address] [place] [address] [address] Diego Covarrubias WBC 6.2 103/ul Normal 4.0-11.0 [facility] Comment on above: Performed By: #### C BC #### [facility] [address] [place] [address] SINUS WO CONTRASTon 11-23 CT [...] recommended.Electronic ally signed by: JORGITO FREITAS, Normal [facility] Initial Visit (Otolaryngolog y)on 11-21-2017 Initial Visit (Otolaryngology) Chief ComplaintThis is a new patient that is here for possible deviated septum History of Present IllnessMarneyda Jovel is here for a new patient consultation for his chronic sinus infections. He was referred by Dr. Garcia at [facility]. Pt reports repeat sinus infections. Jorgito states [...] BusPIRone HCl - 15 MG Oral Tablet;Therapy: 09Nov2017 to Recorded Dispense: 0 Days ; #: Sufficient Tablet; Refill: 0; ELENITA = N; Record; Last Updated By: Amisha Matias; 11/09/2017 1:27:18 PM Vitals Vital Signs Recorded: 09Nov2017 01:19TXTinpsv7 ft 7 [id number] lb BMI Mfszcnvafn04.75BSA Calculated2.19 Physical ExamPhysical Examination:A detailed examination of [...] concerned about his sinuses. ProcedureNASAL ENDOSCOPY (CPT 01598):To better evaluate the patient's symptoms sinonasal endoscopy [...] CT Sinus without Contrast; Status:Active; Requested for:23Nov2017; Perform:[facility];Ordered; For:Chronic sinusitis; Ordered By:Christina Apodaca;Reason: Unspecified for CT Sinus without ContrastRadiologist to Determine Optimal Study : YRequesting physician's phone/pager number? : [phone] Alerts (ie: MRSA, TB, Diabetic) : diabeticWhat [...] MedsBusPIRone HCl - 15 MG Oral Tablet;Therapy: [id number] to Recorded Signatures Electronically signed by : Christina Apodaca MD; Nov 21 2017 7:37AM EST (Author) Normal [employer] Vital Signs Date Time Vital Sign Value Performing Clinician Facility 01-14-2025 16:25-0400 Body height 166.1 cm [facility] 01-14-2025 16:25-0400 Body mass index (BMI) [Ratio] 36.01 kg/m2 Shahbaz ArthurImitix DO [facility] 01-14-2025 16:25-0400 Body temperature 99.39 [degF] Shah[facility]ancini Sharetribe [facility] 01-14-2025 16:25-0400 Body weight 99.34 kg Shahbaz Mancini [employer]ribe Work Phone: [employer] [facility] 01-14-2025 16:25-0400 Diastolic blood pressure 84 mm[Hg] Shahbaz Furlong DO Work Phone: [facility] 01-14-2025 16:25-0400 Heart rate 124 /min Shahbaz Furlong DO Work Phone: [facility] 01-14-2025 16:25-0400 Respiratory rate 18 /min Shahbaz Furlong DO Work Phone: [facility] 01-14-2025 16:25-0400 SaO2% (BldA) [Mass fraction] 98 % Shahbaz Furlong DO Work Phone: [facility] 01-14-2025 16:25-0400 Systolic blood pressure 128 mm[Hg] Shahbaz Furlong DO Work Phone: [facility] 12-24-2024 16:59-0400 Body height 166.1 cm Shahbaz Furlong DO Work Phone: [facility] 12-24-2024 16:59-0400 Body mass index (BMI) [Ratio] 36.17 kg/m2 Shahbaz Furlong DO Work Phone: [facility] 12-24-2024 16:59-0400 Body temperature 98.71 [degF] Shahbaz Furlong DO Work Phone: [facility] 12-24-2024 16:59-0400 Body weight 99.79 kg Shahbaz Furlong DO Work Phone: [facility] 12-24-2024 16:59-0400 Diastolic blood pressure 80 mm[Hg] Shahbaz Furlong DO Work Phone: [facility] 12-24-2024 16:59-0400 Heart rate 111 /min Shahbaz Furlong DO Work Phone: [facility] 12-24-2024 16:59-0400 Respiratory rate 18 /min Shahbaz Furlong DO Work Phone: [facility] 12-24-2024 16:59-0400 SaO2% (BldA) [Mass fraction] 96 % Shahbaz Furlong DO Work Phone: [facility] 12-24-2024 16:59-0400 Systolic blood pressure 120 mm[Hg] Shahbaz Furlong DO Work Phone: [facility] 09-13-2024 16:16-0400 Body height 166.1 cm Shahbaz Furlong DO Work Phone: [facility] 09-13-2024 16:16-0400 Body mass index (BMI) [Ratio] 36.76 kg/m2 Shahbaz Furlong DO Work Phone: [facility] 09-13-2024 16:16-0400 Body temperature 97.9 [degF] Shahbaz Sandhyalong DO Work Phone: [facility] 09-13-2024 16:16-0400 Body weight 101.42 kg Hsahbaz Furlong DO Work Phone: [facility] 09-13-2024 16:16-0400 Diastolic blood pressure 70 mm[Hg] Shahbaz Furlong DO Work Phone: [facility] 09-13-2024 16:16-0400 Heart rate 100 /min Shahbaz Furlong DO Work Phone: [facility] 09-13-2024 16:16-0400 Respiratory rate 18 /min Shahbaz Furlong DO Work Phone: [facility] 09-13-2024 16:16-0400 SaO2% (BldA) [Mass fraction] 98 % Shahbaz Furlong DO Work Phone: [facility] 09-13-2024 16:16-0400 Systolic blood pressure 90 mm[Hg] Shahbaz Furlong DO Work Phone: [facility] 07-27-2024 11:22-0500 Body height 166.1 cm Shahbaz Furlong DO Work Phone: [facility] 07-27-2024 11:22-0500 Body mass index (BMI) [Ratio] 37.12 kg/m2 Shahbaz Furlong DO Work Phone: [facility] 07-27-2024 11:22-0500 Body temperature 98.1 [degF] Shahbaz Furlong DO Work Phone: [facility] 07-27-2024 11:22-0500 Body weight 102.42 kg Shahbaz Furlong DO Work Phone: [facility] 07-27-2024 11:22-0500 Diastolic blood pressure 84 mm[Hg] Shahbaz Furlong DO Work Phone: [facility] 07-27-2024 11:22-0500 Heart rate 112 /min Shahbaz Furlong DO Work Phone: [facility] 07-27-2024 11:22-0500 Respiratory rate 18 /min Shahbaz Furlong DO Work Phone: [facility] 07-27-2024 11:22-0500 SaO2% (BldA) [Mass fraction] 98 % Shahbaz Furlong DO Work Phone: [facility] 07-27-2024 11:22-0500 Systolic blood pressure 118 mm[Hg] Shahbaz Furlong DO Work Phone: [facility] 05-24-2024 09:09-0500 Blood Pressure Location Kiarra Galea [facility] 05-24-2024 09:09-0500 Diastolic blood pressure 88 mm[Hg] Kiarra Galea [facility] 05-24-2024 09:09-0500 Heart rate 76 /min Kiarra Galea [facility] 05-24-2024 09:09-0500 Systolic blood pressure 138 mm[Hg] Kiarra Min [facility] 04-03-2024 16:38-0400 Body height 165.1 cm Shahbaz Furlong DO Work Phone: [facility] 04-03-2024 16:38-0400 Body mass index (BMI) [Ratio] 36.94 kg/m2 Shah[facility]long DO [facility] 04-03-2024 16:38-0400 Body temperature 98.1 [degF] Shahbaz Furlong DO [facility]: [facility] 04-03-2024 16:38-0400 Body weight 100.7 kg Shahbaz Furlong DO Work Phone: [facility] 04-03-2024 16:38-0400 Diastolic blood pressure 68 mm[Hg] Shahbaz Furlong DO [facility] Phone: [facility] 04-03-2024 16:38-0400 Heart rate 83 /min Shahbaz Furlong DO Work Phone: [facility] 04-03-2024 16:38-0400 Respiratory rate 18 /min Shahbaz Furlong DO Work Phone: [facility] 04-03-2024 16:38-0400 SaO2% (BldA) [Mass fraction] 97 % Shahbaz Furlong DO Work Phone: [facility] 04-03-2024 16:38-0400 Systolic blood pressure 110 mm[Hg] Shahbaz Furlong DO Work Phone: [facility] 03-01-2024 15:10-0400 Blood Pressure Location Kiarra Min [facility] 03-01-2024 15:10-0400 Body temperature 98.6 [degF] Kiarra Galea [facility] 03-01-2024 15:10-0400 Diastolic blood pressure 85 mm[Hg] Kiarra Galea [facility] 03-01-2024 15:10-0400 Heart rate 69 /min Kiarra Galea [facility] 03-01-2024 15:10-0400 Respiratory rate 17 /min Kiarra Galea [facility] 03-01-2024 15:10-0400 Systolic blood pressure 121 mm[Hg] Kiarra Galea [facility] 02-23-2024 10:08-0400 Blood Pressure Location Kiarra Galea [facility] 02-23-2024 10:08-0400 Diastolic blood pressure 88 mm[Hg] Kiarra Galea [facility] 02-23-2024 10:08-0400 Heart rate 82 /min Kiarra Galea [facility] 02-23-2024 10:08-0400 Systolic blood pressure 134 mm[Hg] Kiarra Galea [facility] 01-19-2024 15:25-0400 Body height 165.1 cm Jorge GREER Work Phone: [facility] 01-19-2024 15:25-0400 Body mass index (BMI) [Ratio] 37.67 kg/m2 Jorge GREER Work Phone: [employer] 01-19-2024 15:25-0400 Body temperature 98.01 [degF] Jorge Gibbs APRN-URSULA Work Phone: [facility] 01-19-2024 15:25-0400 Body weight 102.69 kg Jorge GREER Work Phone: [facility] 01-19-2024 15:25-0400 Diastolic blood pressure 70 mm[Hg] Jorge Gibbs APRN-URSULA [facility] 01-19-2024 15:25-0400 Heart rate 112 /min Jorge GREER Work Phone: [facility] 01-19-2024 15:25-0400 SaO2% (BldA) [Mass fraction] 97 % Jorge GREER Work Phone: [facility] 01-19-2024 15:25-0400 Systolic blood pressure 124 mm[Hg] Jorge GREER Work Phone: [facility] 01-02-2024 16:09-0400 Body height 165.1 cm Shahbaz Mancini DO Work Phone: [facility] 01-02-2024 16:09-0400 Body mass index (BMI) [Ratio] 38.31 kg/m2 Shahbaz Arthurlong DO Work Phone: [facility] 01-02-2024 16:09-0400 Body temperature 98.4 [degF] Shahbaz Furlong DO Work Phone: [facility] 01-02-2024 16:09-0400 Body weight 104.42 kg Shahbaz Furlong DO Work Phone: [facility] 01-02-2024 16:09-0400 Diastolic blood pressure 80 mm[Hg] Shahbaz Furlong DO Work Phone: [facility] 01-02-2024 16:09-0400 Heart rate 95 /min Shahbaz Arthurlong DO Work Phone: [facility] 01-02-2024 16:09-0400 SaO2% (BldA) [Mass fraction] 98 % Shahbaz Arthurlong DO Work Phone: [facility] 01-02-2024 16:09-0400 Systolic blood pressure 120 mm[Hg] Shahbaz Arthurlong DO Work Phone: [facility] 10-10-2023 16:11-0400 Body height 165.1 cm Josie Grande CENTER SALES AND SERVICE ASSOCIATE-COMMUNITY RESOURCE OFFICER Work Phone: [facility] 10-10-2023 16:11-0400 Body mass index (BMI) [Ratio] 39.8 kg/m2 Josie Grande CENTER SALES AND SERVICE ASSOCIATE-COMMUNITY RESOURCE OFFICER Work Phone: [facility] 10-10-2023 16:11-0400 Body temperature 98.1 [degF] Josie Grande CENTER SALES AND SERVICE ASSOCIATE-COMMUNITY RESOURCE OFFICER Work Phone: [facility] 10-10-2023 16:11-0400 Body weight 108.5 kg Josie Grande APRN-COMMUNITY RESOURCE OFFICER Work Phone: [facility] 10-10-2023 16:11-0400 Diastolic blood pressure 80 mm[Hg] Josie Grande CENTER SALES AND SERVICE ASSOCIATE-COMMUNITY RESOURCE OFFICER Work Phone: [facility] 10-10-2023 16:11-0400 Heart rate 100 /min Josie Grande CENTER SALES AND SERVICE ASSOCIATE-COMMUNITY RESOURCE OFFICER Work Phone: [facility] 10-10-2023 16:11-0400 Respiratory rate 18 /min Josie Grande CENTER SALES AND SERVICE ASSOCIATE-COMMUNITY RESOURCE OFFICER Work Phone: [facility] 10-10-2023 16:11-0400 SaO2% (BldA) [Mass fraction] 96 % Josie Grande CENTER SALES AND SERVICE ASSOCIATE-COMMUNITY RESOURCE OFFICER Work Phone: [facility] 10-10-2023 16:11-0400 Systolic blood pressure 110 mm[Hg] Josie Grande APRN-COMMUNITY RESOURCE OFFICER Work Phone: [facility] 08-30-2023 15:51-0400 Body height 165.1 cm Josie Grande CENTER SALES AND SERVICE ASSOCIATE-COMMUNITY RESOURCE OFFICER Work Phone: [facility] 08-30-2023 15:51-0400 Body mass index (BMI) [Ratio] 40 kg/m2 Josie Grande CENTER SALES AND SERVICE ASSOCIATE-COMMUNITY RESOURCE OFFICER Work Phone: [facility] 08-30-2023 15:51-0400 Body temperature 98.1 [degF] Josie Grande APRN-COMMUNITY RESOURCE OFFICER Work Phone: [facility] 08-30-2023 15:51-0400 Body weight 109.05 kg Josie Grande APRN-COMMUNITY RESOURCE OFFICER Work Phone: [facility] 08-30-2023 15:51-0400 Diastolic blood pressure 70 mm[Hg] Josie Grande CENTER SALES AND SERVICE ASSOCIATE-COMMUNITY RESOURCE OFFICER Work Phone: [facility] 08-30-2023 15:51-0400 Heart rate 107 /min Josie Grande APRN-COMMUNITY RESOURCE OFFICER Work Phone: [facility] 08-30-2023 15:51-0400 Respiratory rate 18 /min Josie Grande APRN-COMMUNITY RESOURCE OFFICER Work Phone: [facility] 08-30-2023 15:51-0400 SaO2% (BldA) [Mass fraction] 98 % Josie Grande CENTER SALES AND SERVICE ASSOCIATE-COMMUNITY RESOURCE OFFICER Work Phone: [facility] 08-30-2023 15:51-0400 Systolic blood pressure 120 mm[Hg] Josie Grande CENTER SALES AND SERVICE ASSOCIATE-COMMUNITY RESOURCE OFFICER Work Phone: [facility] 08-04-2023 14:27-0500 Body height 165.1 cm Shahbaz Mancini DO Work Phone: [facility] 08-04-2023 14:27-0500 Body mass index (BMI) [Ratio] 40.25 kg/m2 Shahbaz Furlong DO Work Phone: [facility] 08-04-2023 14:27-0500 Body temperature 98.6 [degF] Shahbaz Furlong DO Work Phone: [facility] 08-04-2023 14:27-0500 Body weight 109.72 kg Shahbaz Furlong DO Work Phone: [facility] 08-04-2023 14:27-0500 Diastolic blood pressure 68 mm[Hg] Shahbaz Furlong DO Work Phone: [facility] 08-04-2023 14:27-0500 Heart rate 100 /min Shahbaz Arthurlong DO Work Phone: [facility] 08-04-2023 14:27-0500 SaO2% (BldA) [Mass fraction] 97 % Shahbaz Arthurlong DO Work Phone: [facility] 08-04-2023 14:27-0500 Systolic blood pressure 110 mm[Hg] Shahbaz Arthurlong DO Work Phone: [facility] 06-21-2023 16:30-0500 Body height 165.1 cm Josie Grande APRN-COMMUNITY RESOURCE OFFICER Work Phone: [facility] 06-21-2023 16:30-0500 Body mass index (BMI) [Ratio] 39.51 kg/m2 Josie Grande CENTER SALES AND SERVICE ASSOCIATE-COMMUNITY RESOURCE OFFICER Work Phone: [facility] 06-21-2023 16:30-0500 Body temperature 98.29 [degF] Josie Grande APRN-COMMUNITY RESOURCE OFFICER Work Phone: [facility] 06-21-2023 16:30-0500 Body weight 107.68 kg Josie Grande APRN-COMMUNITY RESOURCE OFFICER Work Phone: [facility] 06-21-2023 16:30-0500 Diastolic blood pressure 66 mm[Hg] Josie Grande APRN-COMMUNITY RESOURCE OFFICER [facility] 06-21-2023 16:30-0500 Heart rate 98 /min Josie Grande APRN-COMMUNITY RESOURCE OFFICER Work Phone: [facility] 06-21-2023 16:30-0500 SaO2% (BldA) [Mass fraction] 95 % Josie Grande APRN-COMMUNITY RESOURCE OFFICER [facility] 06-21-2023 16:30-0500 Systolic blood pressure 102 mm[Hg] Josie Grande APRN-COMMUNITY RESOURCE OFFICER Work Phone: [facility] 06-16-2021 11:30-0500 Body height 167.64 cm Kendy Wattsmond Other [employer] Other 06-16-2021 11:30-0500 Body mass index (BMI) [Ratio] 36.31 kg/m2 Kendy Wattsmond Other [employer] Other 06-16-2021 11:30-0500 Body temperature 98.6 [degF] Kendy Wattsmond Other [employer] Other 06-16-2021 11:30-0500 Body weight 102.06 kg Kendy Carey Other [employer] Other 06-16-2021 11:30-0500 Respiratory rate 20 /min Kendy Carey Other [employer] Other 06-16-2021 11:30-0500 SaO2% (BldA) [Mass fraction] 98 % Kendy Carey Other [employer] Other Encounters Encounter Date Encounter Type Care Provider Facility Start: 07-01-2025 ambulatory STEVEN PADILLA Facili ty:[facility] Start: 06-24-2025 ambulatory STEVEN PADILLA Facili ty:[facility] Start: 01-14-2025 End: 01-14-2025 Office outpatient visit 25 minutes Shahbaz Mancini DO Work Phone: [facility] Comment on above: Class 2 severe obesi ty due to excess calories with serious comorbidity and body mass index (BMI) of 36.0 to 36.9 in adult ([facility]) (Primary Dx); Lumbar disc prolapse with compression radiculopathy; Sleep apnea, unspecified type Start: 01-14-2025 End: 01-14-2025 ambulatory [facility] Start: 12-24-2024 End: 12-24-2024 ambulatory [facility] Start: 12-24-2024 End: 12-24-2024 Office outpatient visit 25 minutes Shahbaz Mancini DO Work Phone: [facility] Comment on above: Palpitations (Primar y Dx); PVC (premature ventricular contraction); Sinus tachycardia Start: 12-24-2024 End: 12-26-2024 Telephone encounter Kaila Beck CMA [facility] Start: 12-17-2024 End: 12-17-2024 ambulatory Chrissy Conway MD Facility: [facility] Start: 11-26-2024 End: 11-26-2024 ambulatory Chrissy Conway MD Facility: [facility] Start: 11-12-2024 End: 11-12-2024 ambulatory Chrissy Conway MD Facility: [facility] Start: 11-06-2024 End: 11-06-2024 Refill Shahbaz Mancini DO Work Phone: [facility] Start: 10-15-2024 End: 10-15-2024 ambulatory Chrissy Conway MD Facility: [facility] Start: 10-04-2024 End: 10-04-2024 ambulatory Kiarra Min Facility:[facility] Start: 09-17-2024 End: 09-17-2024 ambulatory Chrissy Conway MD Facility:[facility] Start: 09-13-2024 End: 09-13-2024 Office outpatient visit 25 minutes Shahbaz Auguste Natyleon DO Work Phone: [facility] Comment on above: Lumbar disc prolapse with compression radiculopathy (Primary Dx); Class 2 severe obesity due to excess calories with serious comorbidity and body mass index (BMI) of 36.0 to 36.9 in adult ([facility]); Essential hypertension; Gastroesophageal reflux disease, unspecified whether esophagitis present Start: 09-13-2024 End: 09-13-2024 ambulatory [facility] Start: 08-27-2024 End: 08-27-2024 Refill Jennyfer Mini [facility] Start: 08-20-2024 End: 08-20-2024 ambulatory Chrissy Conway MD Facility: [facility] Start: 08-11-2024 End: 08-11-2024 Orders Only Shahbaz Arthurnicolasleon DO Work Phone: [facility] Comment on above: Lumbar disc prolapse with compression radiculopathy (Primary Dx) Start: 08-08-2024 End: 08-08-2024 Refill Shahbaz Mancini DO Work Phone: [facility] Comment on above: Spondylolisthesis, l umbar region Start: 07-27-2024 End: 07-27-2024 Office outpatient visit 15 minutes Shahbaz Arthurnicolasleon DO Work Phone: [facility] Comment on above: Lumbar disc prolapse with compression radiculopathy (Primary Dx) Start: 07-27-2024 End: 07-27-2024 ambulatory [facility] Start: 06-26-2024 End: 06-27-2024 Telephone [facility] Start: 05-31-2024 End: 05-31-2024 ambulatory [facility] Start: 05-28-2024 End: 05-28-2024 ambulatory [facility] Start: 05-28-2024 Encounter for genera l adult medical examination without abnormal findings JOSIE GRANDE [facility] Start: 05-28-2024 End: 05-28-2024 ambulatory [facility] Start: 05-28-2024 Encounter for genera l adult medical examination without abnormal findings [facility] Start: 05-24-2024 End: 05-24-2024 ambulatory Kiarra Min Facility:[facility] Start: 05-24-2024 End: 05-24-2024 Lab Drop off Kiarra Min [facility] Start: 05-24-2024 End: 05-24-2024 ambulatory Kiarra Chungea Facility:[facility] Start: 05-24-2024 End: 05-24-2024 Patient encounter procedure Kiarra Min [facility] Start: 04-29-2024 End: 04-29-2024 Refill Shahbaz Mancini DO Work Phone: [facility] Comment on above: Urinary urgency Start: 04-03-2024 End: 04-03-2024 Office outpatient visit 25 minutes Shahbaz Mancini DO Work Phone: [facility] Comment on above: Lumbar disc prolapse with compression radiculopathy (Primary Dx); Class 2 severe obesity due to excess calories with serious comorbidity and body mass index (BMI) of 36.0 to 36.9 in adult ([facility]); Essential hypertension; Other fatigue Start: 04-03-2024 End: 04-03-2024 ambulatory SHAHBAZ MANCINI [facility] Start: 03-01-2024 End: 03-01-2024 ambulatory Kiarra J Galea Facility:[facility] Start: 03-01-2024 End: 03-01-2024 Patient encounter procedure Kiarra J Galea [facility] Start: 02-23-2024 End: 02-23-2024 ambulatory Kiarra J Galea Facility:[facility] Start: 02-23-2024 End: 02-23-2024 Lab Drop off Kiarra J Galea [facility] Start: 02-23-2024 End: 02-23-2024 ambulatory Kiarra J Galea Facility:[facility] Start: 02-23-2024 End: 02-23-2024 Patient encounter procedure Kiarra J Galea [facility] Start: 02-16-2024 End: 02-17-2024 Refill [facility] Comment on above: Lumbar disc prolapse with compression radiculopathy Start: 02-09-2024 End: 02-09-2024 Refill Shahbaz Mancini DO Work Phone: [facility] Comment on above: Spondylolisthesis, l umbar region Start: 01-25-2024 ambulatory Kiarra Galea Facility:[facility] Start: 01-20-2024 End: 01-20-2024 Orders Only Jorge Gibbs CENTER SALES AND SERVICE ASSOCIATE-HAND DEICER [employer]ER [facility] Comment on above: Right ureteral stone (Primary Dx) Start: 01-19-2024 End: 01-19-2024 Office outpatient visit 15 minutes Jorge Gibbs CENTER SALES AND SERVICE ASSOCIATE-HAND DEICER [employer]LEMENT WINDER [facility]: [facility] Comment on above: Right ureteral stone (Primary Dx); Fatty liver Start: 01-19-2024 End: 01-19-2024 ambulatory [facility] Start: 01-02-2024 End: 01-02-2024 Office outpatient visit 25 minutes Shahbaz Mancini DO Work Phone: [facility] Comment on above: Lumbar disc prolapse with compression radiculopathy (Primary Dx); Class 2 severe obesity due to excess calories with serious comorbidity and body mass index (BMI) of 39.0 to 39.9 in adult ([facility] Lipoma, unspecified site Start: 11-08-2023 End: 11-10-2023 Telephone encounter Jennyfer Morse [facility] Comment on above: Med Refill Start: 10-30-2023 End: 10-30-2023 Refill Shahbaz Mancini DO [facility] Phone: [facility] Comment on above: Essential (primary) hypertension; Urinary urgency Start: 10-10-2023 End: 10-10-2023 Office outpatient visit 15 minutes Erin Kuns CENTER SALES AND SERVICE ASSOCIATE-COMMUNITY RESOURCE OFFICER Work Phone: [facility] Comment on above: Morbid obesity ([facility]) (Primary Dx); Abdominal bloating Start: 09-12-2023 Orders Only Shahbaz Alfonso ng DO Work Phone: [facility] Start: 08-31-2023 Orders Only Josie Guzmán Veronica CENTER SALES AND SERVICE ASSOCIATE-COMMUNITY RESOURCE OFFICER Work Phone: [facility] Comment on above: Hypomagnesemia (Prim yudy Dx) Start: 08-30-2023 End: 08-30-2023 ambulatory JOSIE GRANDE [facility] Start: 08-30-2023 End: 08-30-2023 Office outpatient visit 25 minutes Erin Kuns CENTER SALES AND SERVICE ASSOCIATE-COMMUNITY RESOURCE OFFICER Work Phone: [facility] Comment on above: Acute kidney injury (nontraumatic) ([facility]) (Primary Dx); Hypomagnesemia; Essential hypertension; Morbid obesity ([facility]) Start: 08-13-2023 Refill Shahbazevi quintero DO Work Phone: [facility] Comment on above: Essential (primary) hypertension Start: 08-12-2023 Refill Shahbaz quintero DO Work Phone: [facility] Comment on above: Urinary urgency Start: 08-04-2023 End: 08-04-2023 Office outpatient visit 25 minutes Shahbaz Mancini DO Work Phone: [facility] Comment on above: Morbid obesity ([facility]) (Primary Dx); Lumbar disc prolapse with compression radiculopathy; Left lateral epicondylitis; Essential hypertension; Spondylolisthesis, lumbar region; Pre-diabetes Start: 07-28-2023 Refill Shahbaz Alfonso leon DO Work Phone: [facility] Comment on above: Urinary urgency Start: 07-08-2023 Refill Kaila Beck [facility] Comment on above: Essential (primary) hypertension Start: 07-04-2023 Telephone encounter Shahbaz menjivar DO Work Phone: [facility] Start: 06-21-2023 End: 06-21-2023 Office outpatient visit 15 minutes Josie Grande CENTER SALES AND SERVICE ASSOCIATE-COMMUNITY RESOURCE OFFICER Work Phone: [facility] Comment on above: Lateral epicondyliti s of left elbow (Primary Dx) Start: 12-03-2021 End: 12-04-[address] SHAHBAZ MANCINI Facility: Start: 06-16-2021 End: 06-16-2021 ambulatory Kendy Patino Other [employer] Other Start: 06-16-2021 Office outpatient vi sit 15 minutes Kendy Patino [facility] Start: 05-21-2021 Encounter for preprocedural cardiovascular examination DR DOCTOR NGUYEN [facility] Start: 05-21-2021 Encounter for preprocedural laboratory examination DR DOCTOR NGUYEN [facility] Start: 05-15-2021 End: 05-16-[address] DOCTOR NGUYEN Facility:[facility] Start: 05-15-2021 End: 05-16-2021 Encounter for preprocedural laboratory examination DR DOCTOR NGUYEN Facility:[facility] Start: 02-19-2021 End: 02-19-[address] SHAHBAZ MANCINI Facility:[facility] Start: 11-23-2017 Ambulatory Christina Apodaca Fac ility:[facility] Start: 11-09-2017 Ambulatory Christina Apodaca Fac ility:[id number] Procedures Date Procedure Procedure Detail Performing Clinician Start: 01-14-2025 Adult depression scr eening assessment Shahbaz Arthurlong DO Work Phone: Start: 12-24-2024 Ecg routine ecg w/le ast 12 lds w/i&r Shahbazevi Arthurlong DO Work Phone: Start: 12-24-2024 Adult depression scr eening assessment Shahbaz Furlong DO Work Phone: Start: 09-13-2024 Follow-up visit Follow-up SHAHBAZ Molina MANCINI Start: 09-13-2024 Adult depression scr eening assessment Shahbaz Arthurlong DO Work Phone: Start: 05-28-2024 Adult depression scr eening assessment Kaila Beck CMA Start: 04-03-2024 Adult depression scr eening assessment Shahbaz Furlong DO Work Phone: Start: 01-02-2024 Adult depression scr eening assessment Shahbaz Furlong DO Work Phone: Start: 10-10-2023 Adult depression scr eening assessment Josie Grande C[employer] SALES AND SERVICE ASSOCIATE-COMMUNITY RESOURCE OFFICER Work Phone: Start: 08-30-2023 Adult depression scr eening assessment Josie Grande CENTER SALES AND SERVICE ASSOCIATE-COMMUNITY RESOURCE OFFICER Work Phone: Start: 08-04-2023 Adult depression scr eening assessment Shahbaz Mancini DO Work Phone: Start: 06-21-2023 Adult depression scr eening assessment Josie Grande CENTER SALES AND SERVICE ASSOCIATE-COMMUNITY RESOURCE OFFICER Work Phone: Start: 11-25-2014 Total replacement of left hip joint Kiarra Min Plan of Treatment Date Care Activity Detail Author Start: 02-11-2030 DTaP,Tdap and Td Vac cines (3 - Td or Tdap) DTaP,Tdap and Td Vaccines (3 - Td or Tdap) [facility] Start: 01-14-2026 Adult BMI Screening Adult BMI Screen ing [facility] Start: 01-14-2026 Depression Screening Depression Scre ening [facility] Start: 01-14-2026 Tobacco Screening Tobacco Screening [facility] Start: 12-24-2025 Adult BMI Screening Adult BMI Screen ing [facility] Start: 12-24-2025 Depression Screening Depression Scre ening [facility] Start: 12-24-2025 Tobacco Screening Tobacco Screening [facility] Start: 09-13-2025 Adult BMI Screening Adult BMI Screen ing [facility] Start: 09-13-2025 Depression Screening Depression Scre ening [facility] Start: 09-13-2025 Tobacco Screening Tobacco Screening [facility] Start: 07-27-2025 Adult BMI Screening Adult BMI Screen ing [facility] Start: 07-27-2025 Tobacco Screening Tobacco Screening [facility] Start: 05-28-2025 Adult BMI Screening Adult BMI Screen ing [facility] Start: 05-28-2025 Depression Screening Depression Scre ening [facility] Start: 05-28-2025 Tobacco Screening Tobacco Screening [facility] Start: 05-21-2025 End: 05-21-2025 Patient encounter procedure 05/21/2025 4:15 PM EST [facility] [address] [place] [id number] Shahbaz Mancini DO [address] [place] [address] [address] [place] [address] [facility] Start: 04-03-2025 Adult BMI Screening Adult BMI Screen ing [facility] Start: 04-03-2025 Depression Screening Depression Scre ening [facility] Start: 04-03-2025 Tobacco Screening Tobacco Screening [facility] Start: 02-11-2025 Influenza vaccination Influenza Vacc ine [facility] Start: 01-18-2025 Adult BMI Screening Adult BMI Screen ing [facility] Start: 01-18-2025 Tobacco Screening Tobacco Screening [facility] Start: 01-14-2025 End: 01-14-2025 Patient encounter procedure 01/14/2025 4:30 PM EDT [facility] [address] [place] [address] Shahbaz Mancini, [address], [place] [address] [facility] Start: 01-01-2025 Adult BMI Screening Adult BMI Screen ing [facility] Start: 01-01-2025 Depression Screening Depression Scre ening [facility] Start: 01-01-2025 Tobacco Screening Tobacco Screening [facility] Start: 10-09-2024 Adult BMI Screening Adult BMI Screen ing [facility] Start: 10-09-2024 Depression Screening Depression Scre ening [facility] Start: 10-09-2024 Tobacco Screening Tobacco Screening [facility] Start: 09-13-2024 End: 09-13-2024 Patient encounter procedure 09/13/2024 4:15 PM EDT Office Visit [facility] [address] [place] [address] Shahbaz Mancini DO [address], [place] [address] [facility] - Family [facility] Start: 08-29-2024 Adult BMI Screening Adult BMI Screen ing [facility] Start: 08-29-2024 Depression Screening Depression Scre ening [facility] Start: 08-29-2024 Tobacco Screening Tobacco Screening [facility] Start: 08-28-2024 End: 08-28-2024 Patient encounter procedure 08/28/2024 3:30 PM EDT Office Visit [facility] Internal [facility] - Family Medicine [address] [place] [address] Shahbaz Mancini, DO [address], [facility] [place] [address] [facility] Internal Medicine Family [facility] Start: 08-28-2024 Screening for malign ant neoplasm of colon Colon Cancer Screening 3 Year Cologuard [facility] Start: 08-04-2024 Adult BMI Screening Adult BMI Screen ing [facility] Start: 08-04-2024 Depression Screening Depression Scre ening [facility] Start: 08-04-2024 Tobacco Screening Tobacco Screening [facility] Start: 06-21-2024 Adult BMI Screening Adult BMI Screen ing [facility] Start: 06-21-2024 Depression Screening Depression Scre ening [facility] Start: 06-21-2024 Tobacco Screening Tobacco Screening [facility] Start: 05-28-2024 End: 05-28-2024 Patient encounter procedure 05/28/2024 2:30 PM EST Office Visit [facility] Internal Medicine - Family Medicine [address] [place] [address] Shahbaz Mancini DO [address], [place] [address] [facility] - Family [facility] Start: 04-03-2024 End: 04-03-2024 Patient encounter procedure 04/03/2024 4:30 PM EDT Office Visit [facility] Internal Medicine - Family Medicine [address] [place] [address] Shahbaz Mancini DO [address] [place] [address] [facility] Start: 02-12-2024 Influenza vaccination Influenza Vacc ine [facility] Start: 01-02-2024 End: 01-02-2024 Patient encounter procedure 01/02/2024 4:15 PM EDT [facility] [address] [place] [address] Shahbaz Mancini DO [address] [place] [address] [facility] Start: 11-03-2023 End: 11-03-2023 Patient encounter procedure 11/03/2023 4:10 PM EDT [facility] [address] [place] [address] Shahbaz Mancini DO [address] [place] [address] [facility] Start: 10-10-2023 End: 10-10-2023 Patient encounter procedure 10/10/2023 4:00 PM EDT [facility] [address] [place] [address] Josie Grande, [employer]-COMMUNITY RESOURCE OFFICER [address] [facility] [address] [facility] - Family [facility] Start: 09-11-2023 Influenza vaccination Influenza Vacc ine [facility] Comment on above: Postponed from 02/11 (Patient Refused) Start: 08-04-2023 End: 08-04-2023 Patient encounter procedure 08/04/2023 2:20 PM EST [facility] [address] [place] [address] Shahbaz Mancini DO [address], [place] [address] [facility] Start: 2023 Administration of varicella zoster vaccine Zoster (Shingles) Vaccine (1 of 2) [facility] Start: 02-11-2023 Influenza vaccination Influenza Vacc ine [facility] Start: 1991 Adult BMI Follow Up Plan Adult BMI Follow Up Plan [facility] Immunizations Immunization Date Immunization Notes Care Provider Fa cility 02-12-2020 diphtheria, tetanus toxoids and pertussis vaccine Josie Grande C[employer] SALES AND SERVICE ASSOCIATE-COMMUNITY RESOURCE OFFICER Work Phone: [facility] 02-12-2020 tetanus toxoid, redu jackson diphtheria toxoid, and acellular pertussis vaccine, adsorbed Josie Grande CENTER SALES AND SERVICE ASSOCIATE-COMMUNITY RESOURCE OFFICER Work Phone: [facility] 02-03-2018 hepatitis B vaccine, adult dosage Josie Grande CENTER SALES AND SERVICE ASSOCIATE-COMMUNITY RESOURCE OFFICER Work Phone: [facility] 09-07-2017 hepatitis B vaccine, adult dosage Josie Grande CENTER SALES AND SERVICE ASSOCIATE-COMMUNITY RESOURCE OFFICER Work Phone: [facility] 08-04-2017 hepatitis B vaccine, pediatric or pediatric/adolescent dosage Josie Grande CENTER SALES AND SERVICE ASSOCIATE-COMMUNITY RESOURCE OFFICER Work Phone: [facility] Payers Date Payer Category Payer Managed Care, Other (non HMO) [employer] [id number] 2023 Managed Care Other (unspecified) [id number] PLAN [id number] 2023 Private Health Insurance [id number] 2023 Private Health Insurance [id number] 2023 Unknown [id number] 2012 Unknown [id number]. [id number] 1973 Unknown [id number] 2.16.840.1.967304.3.579. 2.593 1973 Unknown [id number] 2.16.840.1.701066.3.579. 2.593 1973 Unknown [id number] 2.16.840.1.032258.3.579. 2.593 1973 Unknown [id number] 2.16.840.1.438346.3.579. 2.727 1973 Unknown [id number] 2.16.840.1.300901.3.579. 2.727 1973 Unknown [id number] 2.16.840.1.484489.3.579. 2.727 1973 Unknown [id number] 2.16.840.1.341917.3.579. 2.1286 1973 Unknown [id number] 2.16.840.1.179945.3.579. 2.1286 1973 Unknown [id number] 2.16.840.1.481313.3.579. 2.1286 1973 Unknown [id number] 2.16.840.1.044456.3.579. 2.727 1973 Unknown [id number] 2.16.840.1.072229.3.579. 2.727 1973 Unknown [id number] 2.16.840.1.189201.3.579. 2.727 1973 Unknown [id number] 2.16.840.1.220664.3.579. 2.727 1973 Unknown [id number] 2.16.840.1.077328.3.579. 2.727 1973 Unknown [id number] 2.16.840.1.325813.3.579. 2.727 1973 Unknown [id number] 2.16.840.1.114207.3.579. 2.196 1973 Unknown [id number] 2.16.840.1.874318.3.579. 2.196 1973 Unknown [id number] 2.16.840.1.243800.3.579. 2.196 1973 Unknown [id number] 2.16.840.1.518134.3.579. 2.196 1973 Unknown [id number] 2.16.840.1.400567.3.579. 2.196 1973 Unknown [id number] 2.16.840.1.601623.3.579. 2.196 1973 Unknown [id number] 2.16.840.1.427974.3.579. 2.1286 1973 Unknown [id number] 2.16.840.1.371385.3.579. 2.1286 1973 Unknown [id number] 2.16.840.1.506128.3.579. 2.1286 1973 Unknown [id number] 2.16.840.1.001153.3.579. 2.1286 1973 Unknown [id number] 2.16.840.1.382612.3.579. 2.1286 1973 Unknown [id number] 2.16.840.1.398809.3.579. 2.1286 1973 Unknown [id number] 2.16.840.1.513961.3.579. 2.1286 1959 Unknown [id number] Self-pay Social History Date Type Detail Facility Start: 03-07-2023 End: 05-03-2023 Sex Assigned At [facility] Start: 03-01-2024 End: 05-24-2024 Tobacco smoking status Light tobacco smoker (finding) [facility] Start: 03-07-2023 End: 01-19-2024 Tobacco smoking status Ex-smoker (finding) [facility] Tobacco smoking status Never [facility] Start: 06-13-1989 End: 09-11-2022 History of tobacco use Current smoker [facility] Start: 06-13-1989 End: 09-11-2022 History of tobacco use Cigarette Smoker [facility] Start: 03-07-2023 End: 01-19-2024 Cigarettes smoked current (pack per day) - [facility] Start: 03-07-2023 End: 01-19-2024 Tobacco use and exposure [facility]ok[facility] Start: 05-28-2024 End: 01-14-2025 Alcoholic beverage intake Ex-drinker (finding) [facility] Has the [employer], [employer], [employer], or water [employer] threatened to shut off services in your home in past 12Mo No [facility] Are you now , , , , never or living with a partner? [facility] How often to you hav e a drink containing alcohol? 2-4 times a month [facility] How many standard drinks containing alcohol do you have on a typical day? 1 or 2 [facility] How often do you hav e 6 or more drinks on 1 occasion? Never [facility] Do you feel stress - tense, restless, nervous, or anxious, or unable to sleep at night because your mind is troubled all the time - these days [OSQ] Not at all [facility] Start: 03-02-2022 Alcohol Comment Occasional 6 p ack once a month [facility] Start: 1975 Sex assigned at Not on file P [facility] Start: 01-16-2015 Sex Male (finding) [facility] Start: 06-21-2023 End: 08-04-2023 Alcohol intake Current drinker of alcohol (finding) [facility] Functional Status Date Assessment Result Facility 05-24-2024 Functional Status N/A [facility] 03-01-2024 Functional Status N/A [facility] 02-23-2024 Functional Status N/A [facility] Clinical Notes 02-19-2021 to 01-14-2025 Shahbaz Mancini, DO - 01/14/2025 4:30 PM EDTShahbaz Mancini, DO - 12/24/2024 4:55 PM EDTTelephone Encounter - Kaila Beck, DOCUMENT CONTROL SUPERVISOR - 12/24/2024 4:33 PM EDT Note Date & Type Note Facility 01-14-2025 History of Present illness Narrative Subjective Patient ID: Jorgito Jovel is a 49 y.o. male. Jorgito presents for weight recheck. He is on compounded semaglutide and has a couple refills left. He continues to slowly lose weight. He is on a reduced calorie diet. He cannot really exercise due to his chronic back pain. He is seeing pain management and is having another injection done but the last one didn't last very long. He is taking meloxicam daily and occasionally uses hydrocodone when the pain gets bad. He doesn't have any side effects. He is wondering what his chances are to get disability, when should he consider surgery. He was told in the past that he could have surgery but should try pain management and PM says he isn't [...] and post discharge medication. Review of Systems Gastrointestinal: Negative. [...] in adult (CMS-HCC) He is obese. He continues to lose [...] in the morning. documented in this encounter [facility] 12-24-2024 History of Present illness Narrative Subjective Patient ID: Jorgito Jovel is a 49 y.o. male. Lizandro walked into the office with complaint up palpitations and heart beating hard. He has intermittent episodes of palpitations. They are brief usually lasting just a couple minutes. He is unsure if they are irregular or not. He was taking metoprolol but it stopped it a while back for an injection for his back. He did not restart it. He hardly ever drinks caffeine. Does not drink energy drinks. Drinks mostly water. She does not have any chest pain. It comes on by itself and resolves on its own. There are no triggers that he has identified The following portions of the patient's history were reviewed and updated as appropriate: allergies, current medications, past family history, past medical history, past social history, past surgical history, problem list, and medication reconciliation was completed including current medication and post discharge medication. Review of Systems Objective Physical Exam Vitals reviewed. Constitutional: General: He is not in acute distress. Appearance: He is obese. He is not ill-appearing. Cardiovascular: Rate and Rhythm: Normal rate and regular rhythm. Pulses: Normal pulses. Heart sounds: Normal heart sounds. No murmur heard. Pulmonary: Effort: Pulmonary effort is normal. No respiratory distress. Breath sounds: Normal breath sounds. No wheezing, rhonchi or rales. Neurological: General: No focal deficit present. Mental Status: He is alert and oriented to person, place, and time. Psychiatric: Mood and Affect: Mood normal. Behavior: Behavior normal. Thought Content: Thought content normal. Judgment: Judgment normal. Assessment/Plan Jorgito was seen today for irregular heart beat. Diagnoses and all orders for this visit: Palpitations - POCT EKG EKG done and 1 showed 2 PVCs with sinus tachycardia in the other just sinus tachycardia. He has had other episodes of palpitations. He is unclear if those for PVCs or some other rhythm. Recommended to check with an event monitor but he would like to see how the medication works. PVC (premature ventricular contraction) PVC's are basically benign but can cause symptoms. Recommend to restart metoprolol but it 25 mg daily Sinus tachycardia Restart metoprolol succinate 25 mg daily Other orders - metoprolol succinate XL (TOPROL XL) 50 mg 24 hr tablet; Take 0.5 tablets (25 mg total) by mouth every morning. TAKE 1 TABLET BY MOUTH ONCE DAILY EVERY MORNING documented in this encounter [facility] 12-24-2024 Miscellaneous Notes Patient came in and was wondering if he can go back on his metoprolol because he feels like his heart is beating out of his chest. Pt came in and I let him sit for 5 min and took his BP is 120/80, 97 O2 pulse 108--115 with continues monitoring. Pt feels like his heart is pumping harder on the left side. documented in this encounter [facility] 12-24-2024 Telephone encounter Note Patient came in and was wondering if he can go back on his metoprolol because he feels like his heart is beating out of his chest. [facility] 12-24-2024 Telephone encounter Note Pt came in and I let him sit for 5 min and took his BP is 120/80, 97 O2 pulse 108--115 with continues monitoring. Pt feels like his heart is pumping harder on the left side. [facility] 10-04-2024 Note Patient Education Urology Benign Prostatic [...] Follow these instructions at home: ??? Take yoxm-tpt-mnmauyh and prescription medicines only as told by [...] do not get (more content not included)... [facility] 09-13-2024 History of Present illness Narrative Subjective [...] Exam Vitals reviewed. Exam conducted with a administrative fellow present (Darryl Ruiz MS 3). Constitutional: General: [...] (BMI) of 36.0 to 36.9 in adult ([facility]) He is obese. He continues with a [...] consider an EGD. documented in this encounter [facility] 07-27-2024 History of Present illness Narrative Images [...] Exam Vitals reviewed. Exam conducted with a administrative fellow present (Dat Amador MS3). Constitutional: General: He [...] the office today. documented in this encounter [facility] 06-26-2024 Miscellaneous Notes Patient came in and was wondering if he can get a refill on the wegovy through [facility] and he would like it increased if he can. Okay. Forms filled out to be faxed in documented in this encounter [facility] 06-26-2024 Telephone encounter Note Patient came in and was wondering if he can get a refill on the wegovy through [facility] and he would like it increased if he can. [facility] 06-26-2024 Telephone encounter Note Okay. Forms filled out to be [facility] 05-24-2024 Hospital Discharge instructions Patient Education 05/24/2024 [...] treatment? Where to find more information [employer] [place] [employer]: www.cancer.org [employer] [employer]: www.auanet.org Contact a health care [...] provider. Document Revised: 11/23/2021 Document Reviewed: 11/23/2021 [employer] Patient Education 2023 [employer]. 05/24/2024 10:52:52 Prostate Cancer Screening Prostate Cancer [...] treatment? Where to find more information [employer] [place] [employer]: www.cancer.org [employer] [employer]: www.auanet.org Contact a health care [...] provider. Document Revised: 11/23/2021 Document Reviewed: 11/23/2021 [employer] Patient Education 2023 [employer]. 05/24/2024 10:52:36 Benign Prostatic Hyperplasia Benign Prostatic [...] urethra. Follow these instructions at home: Take fmsg-hsy-jjkibax and prescription medicines only as told by [...] provider. Document Revised: 12/16/2021 Document Reviewed: 12/16/2021 [employer] Patient Education 2023 [employer]. Follow Up Care 02/23/2024 10:39:28 With:Mechelle BARCENAS, Kiarra Gant, URL Address: When: Unknown Comments:F/U 3 months [facility] 05-24-2024 Note Patient Education Prostate [...] Where to find more information ??? The [place] [employer]: www.cancer.org ??? [employer]: www.auanet.org Contact a health care [...] gland is located (more content not included)... [facility] 04-03-2024 History of Present illness Narrative [...] a sleep study done years ago at [facility] but it was okay. Part of [...] track down the sleep study done at [facility] to see if he has sleep [...] for muscle spasms. documented in this encounter [facility] 03-01-2024 Hospital Discharge instructions Patient Education 03/01/2024 [...] Follow these instructions at home: Medicines Take ftbg-unu-dtlgaei and prescription medicines only as told by [...] or the blood stops without treatment. Take wmvb-njl-wxfgacq and prescription medicines only as told by your health care provider. Drink enough fluid to keep your urine pale yellow. This information is not intended to replace advice given to you by your health care provider. Make sure you discuss any questions you have with your health care provider. Document Revised: 01/28/2021 Document Reviewed: 01/28/2021 [employer] Patient Education 2023 [employer]. Follow Up Care 02/27/2024 10:53:51 With:Mechelle BARCENAS, Kiarra Gant, URL Address: When: Unknown Comments:Appointment has already been scheduled [facility] 03-01-2024 Note Patient Education Urology Hematuria, [...] these instructions at home: Medicines ? Take ftpc-yaz-obbqdql and prescription medicines only as told by [...] the blood stops without treatment. ? Take fgss-udq-hclpzrl and prescription medicines only as told by your health care provider. ? Drink enough fluid to keep your urine pale yellow. This information is not intended to replace advice given to you by your health care provider. Make sure you discuss any questions you have with your health care provider. Document Revised: 01/28/2021 Document Reviewed: 01/28/2021 ElseLUMOback Patient Education ? 2023 [employer] [facility] 02-23-2024 Hospital Discharge instructions Patient Education [...] urethra. Follow these instructions at home: Take geru-rpw-gislbxw and prescription medicines only as told by [...] provider. Document Revised: 12/16/2021 Document Reviewed: 12/16/2021 [employer] Patient Education 2023 [employer]. 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 was taking flomax, [...] Skin: No rashes or suspicious lesions Assessment/Plan OFFICE SERVICES SPECIALIST referred by Jorge Gibbs NP for ureteral stone. 01/08/24 - BUN 27, Cre 1.95, GFR 44 (pt had hydro due to ureteral stone at this time), no repeat labs in [facility] 1. History of kidney stones (Z87.442: Personal history of urinary calculi) 01/08/[address] [facility] [address] w/o con - mild R hydronephrosis due to a 5mm proximal R ureteral stone near the UPJ. No additional upper or lower urinary tract calculi are seen on either side. There are no other acute findings in the abdomen or pelvis 02/16/24 KUB - no appreciable urinary tract calculi Pt went to [facility] ER on 01/08/24 due to pain. [...] Mt. Dew. Discussed increasing fluids and adding lemon/capitan grande band to patient's regimen, pt verbalizes understanding. Briefly discussed metabolic workup with patient should he develop another stone. -Increase fluids, avoid bladder irritants -Add lemon/capitan grande band, lemonade to fluid intake -Call our office for any stone symptoms -F/U 1 year with KUB/KECIA Ordered: E&M of New Patient High 60-74 Min 44116 2. BPH with obstruction/lower urinary tract symptoms [...] Daily, # 30 cap(s), Refills(s) 11, Pharmacy: [id number], 168, cm, 02/23/24 10:12:00 EDT, Height/Length Dosing, 102, kg, 02/23/24 10:12:00 EDT, Weight Dosing E&M of New Patient High 60-74 Min 65363 3. Screening PSA (prostate specific antigen) (Z12.5: [...] E&M of New Patient High 60-74 Min 87870 PSA Total 4. Asymptomatic microscopic hematuria (R31.21: [...] Denies gross hematuria. (more content not included)... [facility] Comment on above: Result Comment: Elec tronically Signed By: Mechelle BARCENAS, Kiarra Gant\.br\Date and Time Signed: 02/23/24 11:07 EDT 02-23-2024 [...] Follow these instructions at home: ? Take ufap-wae-gbkjdrm and prescription medicines only as told by [...] develop side effec (more content not included)... [facility] 01-19-2024 History of Present illness Narrative [address] [facility] [address] Patient: Jorgito Jovel Date of : 1975 [...] He has gotten a surgery consultation through [facility] in the past and decided not to [...] normal. Behavior: Behavior normal. Assessment and Plan: Jorgtio was seen today for er follow-up. Diagnoses and all orders for this visit: Right ureteral stone - Cancel: [facility] - [place], [place]; Future Fatty liver Follow-up: Patient was set up with [facility] but unfortunately they did not take [...] Mar for routine visit. ZOEY THOMAS APRN-CNP 01/23/246 documented in this encounter [facility] 01-02-2024 History of Present illness [...] Cervical back: Neck supple. Skin: Findings: Lesion ([place], soft, freely movable mass along left anterior [...] (BMI) of 39.0 to 39.9 in adult ([facility]) He continues with weight loss with [employer]. [...] see a surgeon. documented in this encounter [facility] 11-08-2023 Miscellaneous Notes Pt called stated he neds a refill of his wagovy . Not sure what dose he needs , some other screen comes up when I tried to send you a reorder Form printed out to faxed to [facility] documented in this encounter [facility] 11-08-2023 Telephone encounter Note Pt called stated he neds a refill of his wagovy . Not sure what dose he needs , some other screen comes up when I tried to send you a reorder [facility] 11-08-2023 Telephone encounter Note Form printed out to faxed to [facility] 10-10-2023 History of Present illness Narrative Subjective [...] all orders for this visit: Morbid obesity ([facility]) Abdominal bloating - polyethylene glycol (GLYCOLAX) 17 [...] well, call if symptoms fail to improve Josie Grande APRN-DIXON 10/10/23 1839 documented in this encounter [facility] 09-12-2023 History of Present illness Narrative Semaglutide 0.6 mg once a week sent in to [facility] documented in this encounter [facility] 08-30-2023 History of Present illness [...] for this visit: Acute kidney injury (nontraumatic) ([facility]) - Comprehensive metabolic panel; Future Hypomagnesemia - Magnesium; Future Essential hypertension Morbid obesity ([facility]) He looks good today and his labs [...] [facility] 08/30/23 1710 documented in this encounter [facility] 08-13-2023 Miscellaneous Notes I called pt and he is taking it.He has a 90 supply everything good he is receiving it through [facility] documented in this encounter [facility] 08-13-2023 Telephone encounter Note I called pt and he is taking it.He has a 90 supply everything good he is receiving it through [facility] 08-04-2023 History of Present illness Narrative Subjective [...] would like a refill. 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 I have gotten multiple request to refill this medication. Call patient and find out what is going on It will be covered if it goes to this pharmacy That pharmacy does not accept e-prescriptions per [facility]. I printed out a prescription to hand fax documented in this encounter [facility]23 Telephone encounter Note Patient told me that this was no longer going to be covered so I sent in an alternative. I have gotten multiple request to refill this medication. Call patient and find out what is going on [facility]23 Telephone encounter Note It will be covered if it goes to this pharmacy [facility]-08-2023 Telephone encounter Note That pharmacy does not accept e-prescriptions per [facility]. I printed out a prescription to hand [facility] Miscellaneous Notes [facility] rep called requesting an Edarbi med refill however I dont see it as a listed med. Please advise. It was not going to be covered so I changed it to something else per patient's request. documented in this encounter [facility] 07-04-2023 Telephone encounter Note [facility] rep called requesting an Edarbi med refill however I dont see it as a listed med. Please advise. [facility] 07-04-2023 Telephone encounter Note It was not going to be covered so I changed it to something else per patient's request. [facility] 06-21-2023 History of Present illness Narrative Subjective [...] weeks would recommend injection with steroids with DEI [facility]aya 06/21/231723 documented in this encounter [facility] 12-04-2021 Note PROCEDURE: XR HEEL [...] authenticated by: SALINA AGUILERA Date: 2021-12-04 09:07 [facility] 06-16-2021 Evaluation note Encounter Date Diagnosis Assessment Notes 04 Byron, 2022 Contact with and (suspected) exposure to other [...] Patient care instructions given in writting by [facility] Care At Home document. [employer] Other 09-09-2021 NotePROCEDURE: XR KNEE RT 4V [...] Electronically authenticated by: SALINA AGUILERA Date: 2021-02-19 14:03[facility] Future App[facility]ments Appointment Date:05/24/2024 09:00:00 AM Scheduled Provider:Kiarra Christiansen Location:[facility] Appointment Type:URO Office Visit Diagnostic Tests Pending * Creatinine 03/01/24 [facility] evaluation + Plan note Future Appointments Appointment Date:05/24/2024 09:00:00 AM Scheduled Provider:Kiarra Christiansen Location:[facility] Appointment Type:URO Office Visit Diagnostic Tests Pending * Urine Culture 02/23/24 [facility] Evaluation + Plan note Future Appointments Appointment Date:05/24/2024 09:00:00 AM Scheduled Provider:Kiarra Christiansen Location:[facility] Appointment Type:URO Office Visit Diagnostic Tests Pending * PSA Total 02/23/24 [facility] evaluation note* Diagnosis Morbid obesity (CMS-HCC)- Primary [...] [facility] Morbid obesity ([facility])- Primary Morbid obesity Lumbar disc prolapse with [...] (BMI) of 39.0 to 39.9 in adult ([facility]) Lipoma, unspecified site [facility] Diagnosis Acute kidney injury (nontraumatic) ([facility])- Primary Acute kidney failure, unspecified Hypomagnesemia Disorders of magnesium metabolism Essential hypertension Unspecified essential hypertension Morbid obesity ([facility]) Morbid obesity [facility] Diagnosis Hypomagnesemia- Primary Disorders of magnesium metabolism [facility] Diagnosis Right ureteral stone- Primary documented in this encounter [facility] Diagnosis Right ureteral stone- Primary Fatty liver Other chronic nonalcoholic liver disease documented in this encounter [facility]* Diagnosis Spondylolisthesis, lumbar region documented in this encounter [facility]* Diagnosis Lumbar disc prolapse with compression radiculopathy Displacement of lumbar intervertebral disc without myelopathy [facility] Diagnosis Lumbar disc prolapse with compression radiculopathy- Primary Displacement of lumbar intervertebral disc without myelopathy Class 2 severe obesity due to excess calories with serious comorbidity and body mass index (BMI) of 36.0 to 36.9 in adult ([facility]) Essential hypertension Unspecified essential hypertension Other fatigue [facility] Diagnosis Urinary urgency Urgency of urination [facility] Diagnosis Spondylolisthesis, lumbar region [facility] Diagnosis Lumbar disc prolapse with compression radiculopathy- Primary Displacement of lumbar intervertebral disc without myelopathy documented in this encounter [facility]* Diagnosis Lumbar disc prolapse with compression radiculopathy- Primary Displacement of lumbar intervertebral disc without myelopathy Class 2 severe obesity due to excess calories with serious comorbidity and body mass index (BMI) of 36.0 to 36.9 in adult ([facility]) Essential hypertension Unspecified essential hypertension Gastroesophageal reflux disease, unspecified whether esophagitis present [facility] Diagnosis Palpitations- Primary PVC (premature ventricular contraction) Other premature beats Sinus tachycardia Other specified cardiac dysrhythmias [facility] Diagnosis Class 2 severe obesity due to excess calories with serious comorbidity and body mass index (BMI) of 36.0 to 36.9 in adult ([facility])- Primary Lumbar disc prolapse with compression radiculopathy Displacement of lumbar intervertebral disc without myelopathy Sleep apnea, unspecified type [facility] Narrative - Reported* Type Description Date Medical History GERD Medical History arthritis Medical History NIDDM Medical History HTN Medical History hyperlipidemia Medical History sleep apnea Medical History depression Medical History deviated nasal septum Medical History chronic sinusitis Medical History COPD Surgical History Injection Tendon Origin/Inserti on Surgical History LASIK Surgical History total hip replacement, left Hospitalization History surgeries [employer] Other Hospital course Narrative No data available for this section [facility] Hospital Discharge instructions No data available for this section [facility] InstructionsNot on filedocumented in this encounter [...] Care Everywhere. * Kidney stones in adults (Brazilian) documented in [facility]ructionsNot on file documented in this encounterProMedica Health SystemInstructionsNot on file documented in this encounterProMedica Health SystemInstructionsNot on file documented in this encounterProMedica Health SystemInstructionsNot on file documented in this encounterProMedica Health SystemProgress note No data available for this section [facility] reason for referral (narrative)* Consultation (Routine) - Pending Review Specialty Diagnoses / Procedures Referred By Cassandra hdez Referred To Contact Urology Diagnoses Right ureteral stone Jorge Gibbs, C[employer] SALES [employer] SERVICE ASSOCIATE-HAND DEICER ELEMENT W[employer]ER [address] [place] [address] Juancho Nunn MD [address] [place] [address] Referral ID Status Reason Start Date Expiration Date Visits Requested Visits Authorized [id number] Pending Review Specialty Services Required 01/20/2024 01/19/2025 1 1 [facility] Summary Purpose Family History No Family [...] section and content) DATE CREATED AUTHOR 11/29/2017 [employer] DATE CREATED AUTHOR AUTHOR'S ORGANIZ ATION 12/02/2017 [facility] DATE CREATED AUTHOR AUTHOR'S ORGANIZ ATION 06/02/2021 [facility] DATE CREATED AUTHOR AUTHOR'S ORGANIZ ATION 12/09/2021 [facility] DATE CREATED AUTHOR AUTHOR'S ORGANIZ ATION 02/26/2024 [facility] DATE CREATED AUTHOR AUTHOR'S ORGANIZ ATION 02/27/2024 [facility] [place] [facility] DATE CREATED AUTHOR AUTHOR'S ORGANIZ ATION 05/27/2024 [facility] [place] [facility] DATE CREATED AUTHOR AUTHOR'S ORGANIZ ATION 06/04/2024 [facility] DATE CREATED AUTHOR AUTHOR'S ORGANIZ ATION 08/10/2024 [facility] DATE CREATED AUTHOR AUTHOR'S ORGANIZ ATION 10/05/2024 [facility] DATE CREATED AUTHOR AUTHOR'S ORGANIZ ATION 12/29/2024 [facility] DATE CREATED AUTHOR AUTHOR'S ORGANIZ ATION 01/17/2025 [facility] REASON FOR VISIT (unrecogniz ed section and content) Reason Comments Follow-up Reason Comments elbow, arm wrist pain w/ lump on wrist Reason Comments Back Pain Reason Comments Med Refill Reason Onset Date Comments Med Refill 11/08/2023 Reason Comments Weight Loss Reason Comments Follow-up From ER visit 3 days at [facility] Reason Comments Er Follow-up Still having sorenes s in back Reason Onset Date Comments Med Refill 02/16/2024 Reason Comments controlled Reason Onset Date Comments Med Refill 08/27/2024 Reason Comments Follow-up Pain meds Weight Check Reason Comments Irregular Heart Beat Reason Comments recheck Patient Care team informatio n (unrecognized section and content) Teaching Music Lessons Relationship Specialty Start Date End Date Shahbaz Mancini DO [address], [place] [address] PCP - General Family Medicine 02/11/22 Teaching Music Lessons Relationship Specialty Start Date End Date Shahbaz Mancini DO [address], [place] [address] PCP - General Family Medicine 02/11/22 Teaching Music 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 Relationship Specialty Start Date End Date Shahbaz Mancini DO [address], [place] [address] PCP - General Family Medicine 02/11/22 Teaching Music Lessons Relationship Specialty Start Date End Date Shahbaz Mancini DO [address], [place] [address] PCP - General Family Medicine 02/11/22 Teaching Music Lessons Relationship Specialty Start Date End Date Shahbaz Mancini DO [address] [place] [address] PCP - General Family Medicine 02/11/22 Teaching Music Lessons Relationship Specialty Start Date End Date Shahbaz Mancini DO [address] [place] [address] PCP - General Family Medicine 02/11/22 Teaching Music Lessons Relationship Specialty Start Date End Date Shahbaz Mancini DO [address] [place] [address] PCP - General Family Medicine 02/11/22 Teaching Music Lessons Relationship Specialty Start Date End Date Shahbaz Mancini DO [address] [place] [address] PCP - General Family Medicine 02/11/22 Teaching Music Lessons Relationship Specialty Start Date End Date Shahbaz Mancini DO [address] [place] [address] PCP - General Family Medicine 02/11/22 Teaching Music Lessons Relationship Specialty Start Date End Date Shahbaz Mancini DO [address] [place] [address] PCP - General Family Medicine 02/11/22 Teaching Music Lessons Relationship Specialty Start Date End Date Shahbaz Mancini DO [address] [place] [address] PCP - General Family Medicine 02/11/22 Teaching 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 [employer] [facility]. provides no warranty or guarantee of the accuracy or completeness of information in this document.
[2025-01-28 10:57] VITALS: BP 122/88; PULSE 92; TEMP 36.3; O2SAT 98
[2025-01-28] MEDS: IOHEXOL 240 MG/ML - 10 ML VIAL 24 MG INJ (11:41)
[2025-01-28] MEDS: LIDOCAINE HCL 2% 400 MG/20 ML MDV 3 ML INJ (11:41)
[2025-01-28] MEDS: 0.9 % SODIUM CHLORIDE 10 ML SYRINGE - SALINE FLUSH INJ (11:41)
[2025-01-28] MEDS: BUPIVACAINE HCL 0.25% PF 25 MG/10 ML VIAL INJ (11:41)
[2025-01-28] MEDS: METHYLPREDNISOLONE ACETATE 80 MG/ML VIAL INJ (11:42)
--- NOTE | 2025-01-28 11:48 | W.PM.PROCNOT ---
Date of procedure: 01/28/25 Pre-op diagnosis: Pain due to lumbar stenosis with neurogenic claudication Post-op diagnosis: same as pre-op Procedure: Procedure: Bilateral L5-S1 transforaminal epidural steroid injection Medications: Bupivacaine 0.25% 2cc, lidocaine 2% 1cc, depomedrol 80mg The patient was seen and examined in the preoperative holding area.? Informed consent was obtained and placed on the chart.? Patient was brought to the medical procedure unit and placed in the prone position where a timeout was completed verifying the correct patient, procedure site, position, and planned special equipment using sterile aseptic technique.? Under direct fluoroscopic visualization a 25-gauge Quincke tipped spinal needle was advanced at level left L5-S1 to the designated neural foramen where contrast dye was injected to show adequate spread.? There was no evidence of vascular or adverse uptake.? Epidural spread was appreciated.? The above-mentioned injectate was then placed in a 1.5 mL aliquot preceded by negative aspiration.? The needle was removed. The same procedure, at the same level, was completed on the opposite side. ? Patient was taken to the postprocedural recovery area and monitored for an appropriate length of time before found suitable for discharge in the accompaniment of a responsible adult. Anesthesia: Local Surgeon: Chrissy Conway Pathology: none sent Condition: stable Disposition: no change
[2025-01-28 14:55] VITALS: BP 130/81; BP 133/89; PULSE 86; O2SAT 96
== END 2025-01-28 11:46 | disposition home or self-care (01) ==
LOC: SURGOUT 09:59
PROVIDERS: PCP Family Medicine; Visit Provider Anesthesiology
DX: M48.062 Spinal stenosis, lumbar region with neurogenic claudication (principal); M54.50 Low back pain, unspecified
CPT/HCPCS: 64483; J0665; J1010; Q9966

== ENCOUNTER 2025-02-07 13:38 | Outpatient (OUT) | payer OTHER, SELFPAY ==
--- OUTSIDE RECORDS SUMMARY | 2025-02-07 13:40 | XMS_ITS | Encounter Summary ---
Author Organization [facility] [facility] Address [id number] [address] [place] [address] Care Team Providers Care Head Orthopedic Team Physician Name Role Phone Shahbaz Monk DO Primary Care Provider + [phone] Reason for Visit * Reason Comments Med Change Request Encounter Details Date Type Department Care Team ([facility] Contact Info) Description 02/05/2025 Refill [facility] - Family Medicine [address] [place] [address] Shahbaz Monk DO [address], [facility] [place] [address] Social History Tobacco Use Types Packs/Day Years Used Date Smoking Tobacco: Former Cigarettes 0.5 33.2 1 990 - 09/11/2022 Smokeless Tobacco: Never Alcohol Use Standard Drinks/Week Comments Not Currently 0 (1 standard drink = 0.6 oz pure alcohol) Occasional 6 pack once a month [facility] Utilities Answer Date Recorded In the past 12 months has [employer], gas, oil, or water [employer] threatened to shut off services in your [...] How often do you attend chur or sikh services? Never 03/07/2023 Do you belong to any clubs o r organizations such as pentecostalism groups, unions, fraternal or athletic groups, or [...] Answer Date Recorded Total Score 0 01/14/2025 [facility] - [...] Medicine [address] [place] [address] Shahbaz Monk DO [address] [place] [address] documented as of this encounter Visit Diagnoses Not on filedocumented in this encounter Additional Health Concerns Assessment Noted Time PHQ-9 Depression Total Score: 0 01/15/20 25 4:24 PM EDT documented as of this encounter Care Teams Head Orthopedic Team Physician Relationship Specialty Start Date End Date Shahbaz Monk DO [address] [place] [address] PCP - General Family Medicine 02/11/22 documented as of this encounter
--- OUTSIDE RECORDS SUMMARY | 2025-02-07 13:40 | XMS_ITS | Encounter Summary ---
Author Organization [facility] Sys tem Address [facility] [place]-[id number] [address] [place] [address] Care Team Providers Care Brick And Blocker Aid Labor Name Role Phone Shahbaz Monk Primary Care Provider + [phone] Encounter Details Date Type Department Care Team (Late st Contact Info) Description 12/07/2022 Orders Only [facility] - Family Medicine [address] [place] [phone] Itzel White, RING ROLLING MACHINE OPERATOR-DOCUMENT CLERK [address] [place] [address] Social History Tobacco Use Types Packs/Day Years Used Date Smoking Tobacco: Every Day Cigarettes 0.5 35.7 Started: 1991 Smokeless Tobacco: Never Alcohol Use [...] Medicine [address] [place] [address] Shahbaz Monk DO [address], [facility] [place] [address] documented as of this encounter Procedures Procedure Name Priority Date/Time Associated Diagnosis Comments HM COLOGUARD Routine 08/28/2021 documented in this encounter Results * HM COLOGUARD (08/28/2021) Itzel White RING ROLLING MACHINE OPERATOR-DOCUMENT CLERK HEALTH MAINTENANCE Final Result MANUALLY TRANSCRIBED RESULTS documented in this encounter Visit Diagnoses Not on filedocumented in this encounter Additional Health Concerns Assessment Noted Time PHQ-9 Depression Total Score: 0 12/04/19 23 11:17 AM EDT documented as of this encounter Care Teams Brick And Blocker Aid Labor Relationship Specialty Start Date End Date Shahbaz Monk DO [address] [facility], [facility] [place] [address] PCP - General Family Medicine 02/11/22 documented as of this encounter
--- OUTSIDE RECORDS SUMMARY | 2025-02-07 13:40 | XMS_ITS | Encounter Summary ---
[facility] Address [facility] [place][id number] [address] [place] [address] Care Team Providers Care Poultry Debeaker Name Role Phone SandhyaShahbaz gillespie Primary Care Provider + [phone] Encounter Details Date Type Department Care Team (Late st Contact Info) Description 02/05/2025 Refill [facility] - Family Medicine [address] [place] [address] Kym Parks CMA Social History Tobacco Use Types Packs/Day Years Used Date Smoking Tobacco: Former Cigarettes 0.5 33.2 1 990 - 09/11/2022 Smokeless Tobacco: Never Alcohol Use Standard Drinks/Week Comments Not Currently 0 (1 standard drink = 0.6 oz pure alcohol) Occasional 6 pack once a month [facility] [employer] Answer Date Recorded In the past 12 [...] often do you attend chur ch or uatsdin services? Never 03/07/2023 Do you belong to any clubs o r organizations such as yazidi groups, unions, fraternal or athletic groups, or [...] Answer Date Recorded Total Score 0 01/14/2025 [facility] of Occupat ional Health - Occupational Stress [...] Recorded Do you need help finding a [facility] and/or a training [...] - Family Medicine [address] [place] [address] Shahbaz Monk DO [address], [facility] [place] [address] documented as of this encounter Visit Diagnoses Not on filedocumented in this encounter Additional Health Concerns Assessment Noted Time PHQ-9 Depression Total Score: 0 01/15/20 25 4:24 PM EDT documented as of this encounter Care Teams Poultry Debeaker Relationship Specialty Start Date End Date Shahbaz Monk DO [address] [facility] [place] [address] PCP - General Family Medicine 02/11/22 documented as of this encounter
--- OUTSIDE RECORDS SUMMARY | 2025-02-07 13:40 | XMS_ITS | Encounter Summary ---
Author Organization [employer] s tem Address [facility]-[id number] [address] [place] [address] Care Team Providers Care Admin Prog Coord Name Role Phone Shahbaz Monk DO Primary Care Provider +[phone] Encounter Details Date Type Department Care Team ([facility] Contact Info) Description 03/02/2022 [facility] Only [facility] [address] [place] [address] External, Scanning Provider Social History Tobacco Use [...] Upcoming Encounters Date Type Department Care Team ([facility] Contact Info) Description 05/21/2025 4:15 PM EST Office Visit [facility] Internal Medicine - Family Medicine [address] [place] [address] Shahbaz Monk DO [address] [place] [address] documented as of this encounter Procedures Procedure [...] BLOOD ORDERABLES Final Result Performing Organization Address City/State/[facility] Co de Phone Number MANUALLY TRANSCRIBED RESULTS documented in this encounter Visit Diagnoses Not on filedocumented in this encounter Care Teams Admin Prog Coord Relationship Specialty Start Date End Date Shahbaz Monk DO [address] [place] [address] PCP - General Family Medicine 02/11/22 documented as of this encounter
--- OUTSIDE RECORDS SUMMARY | 2025-02-07 13:40 | XMS_ITS | Clinical Summary ---
Author Organization [employer] tem Address [facility]-[id number] [address] [place] [address] Care Team Providers Care Apprentice Cook Name Role Phone Natyleon Shahbaz Auguste DO Primary Care Provider + [phone] Allergies No known active allergies Medications omeprazole [...] mouth nightly. Has questions 05/28/20 24 Active baclofen (LIORESAL) 10 mg tablet 09/06/19 25 Active meloxicam (MOBIC) 7.5 mg tablet Take 1 tablet (7.5 mg total) by mouth. 09/06/19 25 Active atorvastatin (LIPITOR) 20 mg tablet TAKE 1 TABLET BY MOUTH EVERY MORNING 90 tablet 1 11/07/19 25 Active HYDROcodone-ac etaminophen (NORCO) 5-325 mg per tablet prn 12/04/19 25 Active magnesium oxide (MAGOX) 400 mg tablet Take 1 tablet (400 mg total) by mouth in the morning. 100 tablet 1 01/15/20 25 Active fenofibrate (LOFIBRA) 160 mg tablet Take 1 tablet (160 mg total) by mouth in the morning. 90 tablet 1 02/06/20 25 Active metoprolol succinate XL (TOPROL XL) 50 mg 24 hr tablet TAKE 1 TABLET BY MOUTH IN THE MORNING 90 tablet 1 02/06/20 25 Active fenofibrate (LOFIBRA) 160 mg tablet TAKE 1 TABLET BY MOUTH ONCE DAILY IN THE MORNING 90 tablet 1 08/08/19 25 025 Discontinued(Re order) magnesium oxide (MAGOX) 400 mg tablet Take 1 tablet (400 mg total) by mouth in the morning. 100 tablet 1 08/28/19 25 025 Discontinued(Re order) metoprolol succinate XL (TOPROL XL) 50 mg 24 hr tablet Take 0.5 tablets (25 mg total) by mouth every morning. TAKE 1 TABLET BY MOUTH ONCE DAILY EVERY MORNING 12/25/19 25 025 Discontinued(Re order) metoprolol succinate XL (TOPROL XL) 50 mg 24 hr tablet Take 0.5 tablets (25 mg total) by mouth every morning. TAKE 1 TABLET BY MOUTH ONCE DAILY EVERY MORNING 90 tablet 1 02/06/20 025 Discontinued Active Problems Problem Noted Date [...] Encounters Date Type Department Care Team Description 02/05/2025 Refill [facility] - Family Medicine [address] [place] [address] Shahbaz Monk DO 02/05/2025 Refill [facility] - Family Medicine [address] [place] [address] Kym Parks CMA 01/14/2025 4:30 PM EDT Office Visit [facility] - Family Medicine [address] [place] [address] Shahbaz Monk DO Class 2 severe obesity due to excess calories with serious comorbidity and body mass index (BMI) of 36.0 to 36.9 in adult ([facility]) (Primary Dx); Lumbar disc prolapse with compression radiculopathy; Sleep apnea, unspecified type 01/12/2025 Travel 12/24/2024 4:55 PM EDT Office Visit [facility] - Family Medicine [address] [place] [address] Shahbaz Monk, Palpitations (Primary Dx); PVC (premature ventricular contraction); Sinus tachycardia 12/24/2024 Telephone [facility] - Family Medicine [address] [place] [address] Kym Parks [facility] 12/24/2024 Telephone [facility] - Family Medicine [address] [place] [address] Kaila Beck [facility] from Last 3 Months Immunizations Immunization Administration [...] alcohol) Occasional 6 pack once a month [employer] Utilities Answer Date Recorded In the past 12 months has th e electric, gas, oil, or water [employer] threatened to shut off services in your [...] often do you attend chur ch or moravian services? Never 03/07/2023 Do you belong to any clubs o r organizations such as baptism groups, unions, fraternal or athletic groups, or [...] Recorded Do you need help finding a [facility] career center and/or a training [...] Medicine - Family Medicine [address] [place] [address] Shahbaz Monk, DO [address] [place] [address] Health Maintenance Due Date Last Done Comments [...] ECG ORDERABLES Final Result Performing Organization Address City/[facility]/ZIP Co de Phone Number MANUALLY TRANSCRIBED RESULTS * COLOGUARD (08/28/2021) us Itzel White FERRY CAPTAIN-STAIN MAKER HEALTH MAINTENANCE Final Result Performing Organization Address City/[facility] Co de Phone Number MANUALLY TRANSCRIBED RESULTS from Last 3 Months or Most Recently Relevant to Health Maintenance Insurance [employer] Care Teams Apprentice Cook Relationship Specialty Start Date End Date Shahbaz Monk DO [address] [facility], [place] [address] PCP - General Family Medicine 02/11/22
--- OUTSIDE RECORDS SUMMARY | 2025-02-07 13:40 | XMS_ITS | Encounter Summary ---
Author Organization [facility] [employer] Sys tem Address [facility]-[id number] [address] [place] [address] Care Team Providers Care Web Content Writer Name Role Phone Shahbaz Monk Primary Care Provider + [phone] Encounter Details Date Type Department Care Team (Late st Contact Info) Description 08/23/2023 Orders Only [facility] - Family Medicine [address] [place] [address] External, Scanning Provider Social History Tobacco Use Types Packs/Day Years Used Date Smoking Tobacco: Former Cigarettes 0.5 33.2 1 990 - 09/11/2022 Smokeless Tobacco: Never Alcohol Use Standard Drinks/Week Comments Yes 0 (1 standard drink = 0.6 oz pur e alcohol) Occasional 6 pack once a month [facility] Utilities Answer Date Recorded In the past [...] often do you attend chur ch or denominational services? Never 03/07/2023 Do you belong to any clubs o r organizations such as judaism groups, unions, fraternal or athletic groups, or [...] Answer Date Recorded Total Score 0 08/04/2023 [facility] of Occupat ional Health - Occupational [...] Do you need help finding a [facility] career center and/or a training [...] - Family Medicine [address] [place] [address] Shahbaz Monk DO [address], [place] [address] documented as of this encounter Procedures Procedure [...] as of this encounter Care Teams Web Content Writer Relationship Specialty Start Date End Date Shahbaz Monk DO [address] [facility], [place] [address] PCP - General Family Medicine 02/11/22 documented as of this encounter
--- OUTSIDE RECORDS SUMMARY | 2025-02-07 13:40 | XMS_ITS | Encounter Summary ---
Author Organization [facility] tem Address [facility]-[id number] [address] [place] [address] Care Team Providers Care Hob Mill Operator Name Role Phone Shahbaz Monk DO Primary Care Provider + [phone] Encounter Details Date Type Department Care Team (Late st Contact Info) Description 08/09/2024 Orders Only [facility] Internal [facility] - Family Medicine [address] [place] [address] Shahbaz Monk DO [address], [place] [address] Social History Tobacco Use Types Packs/Day Years Used Date Smoking Tobacco: Former Cigarettes 0.5 33.2 1 990 - 09/11/2022 Smokeless Tobacco: Never Alcohol Use Standard Drinks/Week Comments Not Currently 0 (1 standard drink = 0.6 oz pure alcohol) Occasional 6 pack once a month [facility] Utilities Answer Date Recorded In the past 12 months has [employer], or water [facility] threatened to shut off services in your [...] Answer Date Recorded Total Score 0 05/28/2024 [facility] of Occupat [...] Medicine [address] [place] [address] Shahbaz Monk DO [address] [facility] [place] [address] documented as of this encounter Visit Diagnoses Not on filedocumented in this encounter Additional Health Concerns Assessment Noted Time PHQ-9 Depression Total Score: 0 05/28/20 24 2:30 PM EST documented as of this encounter Care Teams Hob Mill Operator Relationship Specialty Start Date End Date Shahbaz Monk DO [address] [facility] [place] [address] PCP - General Family Medicine 02/11/22 documented as of this encounter
--- OUTSIDE RECORDS SUMMARY | 2025-02-07 13:40 | XMS_ITS | Clinical Summary ---
Author Organization [facility] Address [address] [place] [address] Care Team Providers Care Food Service Worker Name Role Phone Unavailable Primary Care Provider [...]
--- OUTSIDE RECORDS SUMMARY | 2025-02-07 13:40 | XMS_ITS | Encounter Summary ---
Author Organization [facility] Sys tem Address [facility]-[id number] [address] [place] [address] Care Team Providers Care Security Investigator Name Role Phone Shahbaz Monk DO Primary Care Provider + [phone] Encounter Details Date Type Department Care Team (Late st Contact Info) Description 02/28/2023 Orders Only [facility] Internal Medicine - Family Medicine [address] [place] [address] Shahbaz Monk DO [address] [facility] [place] [address] Social History Tobacco Use Types Packs/Day Years [...] - Family Medicine [address] [place] [address] Shahbaz Monk DO [address] [facility] [address] documented as of this encounter Visit Diagnoses Not on filedocumented in this encounter Additional Health Concerns Assessment Noted Time PHQ-9 Depression Total Score: 0 12/04/19 23 11:17 AM EDT documented as of this encounter Care Teams Security Investigator Relationship Specialty Start Date End Date Shahbaz Monk DO [address] [facility] [address] PCP - General Family Medicine 02/11/22 documented as of this encounter
--- OUTSIDE RECORDS SUMMARY | 2025-02-07 13:40 | XMS_ITS | Clinical Summary ---
Author Organization [facility] Address [address] [place] [address] Phone Care Team Providers Care Patient Transition Specialist Name Role Phone Yandel Garcia DO Primary Care Provider Social History Tobacco Use Types Packs/Day Years Used Date Smoking Tobacco: Never Assessed Sex and Gender Information Value Date Recorded Sex Assigned at Not on file Legal Sex Male 10:39 AM EST Gender Identity Not on file Sexual Orientation Not on file Plan of Treatment Not on file Care Teams Patient Transition Specialist Relationship Specialty Start Date End Date Yandel Garcia DO [address] [place] [address] PCP - General 10/24/17
--- OUTSIDE RECORDS SUMMARY | 2025-02-07 13:40 | XMS_ITS | Encounter Summary ---
Author Organization [facility] tem Address [facility][id number] [address] [place] [address] Care Team Providers Care Drafting Detailer Name Role Phone Shahbaz Monk DO Primary Care Provider + [phone] Encounter Details Date Type Department Care Team (Late st Contact Info) Description 04/04/2024 Orders Only [facility] Internal Medicine - Family Medicine [address] [place] [address] Shahbaz Monk DO [address], [facility] [place] [address] Social History Tobacco Use Types Packs/Day Years Used Date Smoking Tobacco: Former Cigarettes 0.5 33.2 1 990 - 09/11/2022 Smokeless Tobacco: Never Alcohol Use Standard Drinks/Week Comments Not Currently 0 (1 standard drink = 0.6 oz pure alcohol) Occasional 6 pack once a month [facility] Utilities Answer Date Recorded In the past 12 months has [employer], [employer], or water [email or web address] threatened to shut off services in your [...] often do you attend chur ch or scientologist services? Never 03/07/2023 Do you belong to any clubs o r organizations such as uatsdin groups, unions, fraternal or athletic groups, or [...] Answer Date Recorded Total Score 0 04/03/2024 [facility] of Occupat ional Health - Occupational Stress [...] Recorded Do you need help finding a [facility] career center and/or a training program? [...] - Family Medicine [address] [place] [address] Shabhaz Monk DO [address] [facility] [place] [address] documented as of this encounter Procedures Procedure Name Priority Date/Time Associated Diagnosis Comments HOME SLEEP STUDY Routine 10/26/2016 4:02 PM EDT documented in this encounter Visit Diagnoses Not on filedocumented in this encounter Additional Health Concerns Assessment Noted Time PHQ-9 Depression Total Score: 0 04/03/20 24 4:37 PM EDT documented as of this encounter Care Teams Drafting Detailer Relationship Specialty Start Date End Date Shahbaz Monk DO [address] [facility] [place] [address] PCP - General Family Medicine 02/11/22 documented as of this encounter
--- OUTSIDE RECORDS SUMMARY | 2025-02-07 13:40 | XMS_ITS | Encounter Summary ---
Author Organization [facility] [employer] Sys tem Address [id number] [address] [place] [address] Care Team Providers Care Corporate Development Associate Name Role Phone Shahbaz Monk Primary Care Provider + [phone] Encounter Details Date Type Department Care Team (Late st Contact Info) Description 03/06/2024 Orders Only [facility] - Family Medicine [address] [place] [address] Ref Prov, [place] [address] Social History Tobacco Use Types Packs/Day Years Used Date Smoking Tobacco: Former Cigarettes 0.5 33.2 1 990 - 09/11/2022 Smokeless Tobacco: Never Alcohol Use Standard Drinks/Week Comments Not Currently 0 (1 standard drink = 0.6 oz pure alcohol) Occasional 6 pack once a month [facility] Utilities Answer Date Recorded In the past 12 months has [facility] [employer] electric, gas, oil, or water company threatened [...] any clubs o r organizations such as nondenominational groups, unions, fraternal or athletic groups, or [...] Answer Date Recorded Total Score 0 01/02/2024 [facility] of Occupat ional Health - Occupational Stress [...] Recorded Do you need help finding a [facility] career center and/or a training program? [...] - Family Medicine [address] [place] [address] Shahbaz Monk DO [address] [facility] [address] documented as of this encounter Procedures Procedure [...] as of this encounter Care Teams Corporate Development Associate Relationship Specialty Start Date End Date Shahbaz Monk DO [address] [facility] [address] PCP - General Family Medicine 02/11/22 documented as of this encounter
--- OUTSIDE RECORDS SUMMARY | 2025-02-07 13:40 | XMS_ITS | Encounter Summary ---
Author Organization [facility] [employer] Sys tem Address [facility]-[id number] [address] [place] [address] Care Team Providers Care Refinery Operator Light Ends Recovery Name Role Phone Shahbaz Monk Primary Care Provider + [phone] Encounter Details Date Type Department Care Team (Late st Contact Info) Description 12/03/2022 Documentation [facility] - Family Medicine [address] [place] [address] Kaila Beck CMA Social History Tobacco Use [...] Medicine [address] [place] [address] Shahbaz Monk DO [address] [facility] [place] [address] documented as of this encounter Visit Diagnoses Not on filedocumented in this encounter Additional Health Concerns Assessment Noted Time PHQ-9 Depression Total Score: 0 12/04/19 23 11:17 AM EDT documented as of this encounter Care Teams Refinery Operator Light Ends Recovery Relationship Specialty Start Date End Date Shahbaz Monk DO [address] [facility] [place] [place] [address] PCP - General Family Medicine 02/11/22 documented as of this encounter
--- OUTSIDE RECORDS SUMMARY | 2025-02-07 13:40 | XMS_ITS | Encounter Summary ---
Author Organization [employer] s tem Address [facility]-[id number] [address] [place] [address] Care Team Providers Care Video Arcade Manager Name Role Phone Shahbaz Monk DO Primary Care Provider + [phone] Reason for Visit * Reason Onset Date Comments Med Refill 06/22/2022 Encounter Details Date Type Department Care Team (Late Contact Info) Description 06/22/2022 Refill [facility] - Family Medicine [address] [place] [address] Kath Irvin CMA Degeneration of lumbar intervertebral [...] Upcoming Encounters Date Type Department Care Team ([facility] Contact Info) Description 05/21/2025 4:15 PM EST Office Visit [facility] - Family Medicine [address] [place] [address] Shahbaz Monk DO [address] [place] [address] documented as of this encounter Visit Diagnoses Diagnosis Degeneration of lumbar intervertebral disc Degeneration of lumbar or lumbosacral intervertebral disc documented in this encounter Additional Health Concerns Assessment Noted Time PHQ-9 Depression Total Score: 2 05/03/20 22 3:45 PM EST documented as of this encounter Care Teams Video Arcade Manager Relationship Specialty Start Date End Date Shahbaz Monk DO [address], [facility] [address] PCP - General Family Medicine 02/11/22 documented as of this encounter
--- OUTSIDE RECORDS SUMMARY | 2025-02-07 13:40 | XMS_ITS | Encounter Summary ---
Author Organization [facility] s tem Address [facility]-[id number] [address] [place] [address] Care Team Providers Care Heading And Priming Tool Setter Name Role Phone Shahbaz Monk DO Primary Care Provider + [phone] Reason for Visit * Reason Comments Med Refill Encounter Details Date Type Department Care Team ([facility] Contact Info) Description 08/06/2022 Refill [facility] - Family Medicine [address] [place] [address] Shahbaz Monk DO [address] [place] [address] Essential (primary) hypertension Social History Tobacco Use [...] Upcoming Encounters Date Type Department Care Team ([facility] Contact Info) Description 05/21/2025 4:15 PM EST [facility] [address] [place] [address] Shahbaz Monk DO [address] [facility] [place] [address] documented as of this encounter Visit Diagnoses Diagnosis Essential (primary) hypertension Unspecified essential hypertension documented in this encounter Additional Health Concerns Assessment Noted Time PHQ-9 Depression Total Score: 2 05/03/20 22 3:45 PM EST documented as of this encounter Care Teams Heading And Priming Tool Setter Relationship Specialty Start Date End Date Shahbaz Monk DO [address] [place] [address] PCP - General Family Medicine 02/11/22 documented as of this encounter
--- OUTSIDE RECORDS SUMMARY | 2025-02-07 13:40 | XMS_ITS | Encounter Summary ---
Author Organization [employer] Sys tem Address [id number] [address] [place] [address] Care Team Providers Care Frit Maker Name Role Phone NatyShahbaz quintero Primary Care Provider + [phone] Encounter Details Date Type Department Care Team (Late st Contact Info) Description 12/24/2024 Telephone [facility] - Family Medicine [address] [place] [address] Kym Parks CMA Social History Tobacco Use Types Packs/Day Years Used Date Smoking Tobacco: Former Cigarettes 0.5 33.2 1 990 - 09/11/2022 Smokeless Tobacco: Never Alcohol Use Standard Drinks/Week Comments Not Currently 0 (1 standard drink = 0.6 oz pure alcohol) Occasional 6 pack once a month [facility] [employer] Answer Date Recorded In the past 12 [...] often do you attend chur ch or latter-day services? Never 03/07/2023 Do you [...] Answer Date Recorded Total Score 0 12/24/2024 [facility] of Occupat ional Health - Occupational [...] Recorded Do you need help finding a [facility] and/or a training program? [...] Family Medicine [address] [place] [address] Shahbaz Monk DO [address], [facility] [place] [place] [address] documented as of this encounter Visit Diagnoses Not on filedocumented in this encounter Additional Health Concerns Assessment Noted Time PHQ-9 Depression Total Score: 0 12/25/19 25 4:58 PM EDT documented as of this encounter Care Teams Frit Maker Relationship Specialty Start Date End Date Shahbaz Monk DO [address] [place] [address] PCP - General Family Medicine 02/11/22 documented as of this encounter
--- OUTSIDE RECORDS SUMMARY | 2025-02-07 13:40 | XMS_ITS | Encounter Summary ---
Author Organization [facility] Sys tem Address [facility] [id number] [address] [place] [address] Care Team Providers Care Balance Sheet Analyst Name Role Phone SandhyaShahbaz gillespie Primary Care Provider + [phone] Encounter Details Date Type Department Care Team (Late st Contact Info) Description 08/21/2024 Orders Only [facility] Internal [facility] - Family Medicine [address] [place] [phone] Kath Irvin CMA Lumbar disc prolapse with compression radiculopathy Social History Tobacco Use Types Packs/Day Years Used Date Smoking Tobacco: Former Cigarettes 0.5 33.2 1 990 - 09/11/2022 Smokeless Tobacco: Never Alcohol Use Standard Drinks/Week Comments Not Currently 0 (1 standard drink = 0.6 oz pure alcohol) Occasional 6 pack once a month [facility] Utilities Answer Date Recorded In the past 12 months has [facility] electric, gas, oil, or water company threatened [...] Answer Date Recorded Total Score 0 05/28/2024 [facility] of Occupat ional Health - [...] Recorded Do you need help finding a [facility] career center and/or a training [...] Medicine - Family Medicine [address] [place] [address] Shahbaz Monk DO [address] [facility] [place] [place] [address] documented as of this encounter Procedures Procedure [...] documented as of this encounter Care Teams Balance Sheet Analyst Relationship Specialty Start Date End Date Shahbaz Monk DO [address], [facility] [place] [address] PCP - General Family Medicine 02/11/22 documented as of this encounter
--- OUTSIDE RECORDS SUMMARY | 2025-02-07 13:40 | XMS_ITS | Encounter Summary ---
Author Organization [employer] s tem Address [facility][id number] [address] [place] [address] Care Team Providers Care Physical Education Specialist Name Role Phone Shahbaz Monk DO Primary Care Provider + [phone] Encounter Details Date Type Department Care Team (Late Contact Info) Description 02/25/2022 Orders Only [facility] Internal Medicine - Family Medicine [address] [place] [address] Shahbaz Monk DO [address], [place] [address] Social History Tobacco Use Types Packs/Day Years [...] Upcoming Encounters Date Type Department Care Team ([facility] Contact Info) Description 05/21/2025 4:15 PM EST Office Visit [facility] - Family Medicine [address] [place] [address] Shahbaz Monk DO [address] [place] [address] documented as of this encounter Visit Diagnoses Not on filedocumented in this encounter Care Teams Physical Education Specialist Relationship Specialty Start Date End Date Shahbaz Monk DO [address] [place] [address] PCP - General Family Medicine 02/11/22 documented as of this encounter
--- OUTSIDE RECORDS SUMMARY | 2025-02-07 13:40 | XMS_ITS | Encounter Summary ---
Author Organization [facility] tem Address [id number] [address] [place] [address] Care Team Providers Care Violin Teacher Name Role Phone Shahbaz Monk DO Primary Care Provider [phone] Encounter Details Date Type Department Care Team ([facility] st Contact Info) Description 05/17/2022 Telephone [facility] Internal Medicine - Family Medicine [address] [place] [address] Roslyn Day MA Social History Tobacco Use [...] Medicine - Family Medicine [address] [place] [address] Shahbaz Monk DO [address] [facility] [address] documented as of this encounter Visit Diagnoses Not on filedocumented in this encounter Additional Health Concerns Assessment Noted Time PHQ-9 Depression Total Score: 2 05/03/20 22 3:45 PM EST documented as of this encounter Care Teams Violin Teacher Relationship Specialty Start Date End Date Shahbaz Monk DO [address] [address] PCP - General Family Medicine 02/11/22 documented as of this encounter
--- OUTSIDE RECORDS SUMMARY | 2025-02-07 13:40 | XMS_ITS | Encounter Summary ---
Author Organization [facility] [employer] Sys tem Address [id number] [address] [place] [address] Care Team Providers Care Wood Scrap Handler Name Role Phone Shahbaz Monk Primary Care Provider + [phone] Encounter Details Date Type Department Care Team (Late st Contact Info) Description 01/10/2024 Orders Only [facility] - Family Medicine [address] [place] [address] Ref Prov, [place] [address] Social History Tobacco Use Types Packs/Day Years Used Date Smoking Tobacco: Former Cigarettes 0.5 33.2 1 990 - 09/11/2022 Smokeless Tobacco: Never Alcohol Use Standard Drinks/Week Comments Not Currently 0 (1 standard drink = 0.6 oz pure alcohol) Occasional 6 pack once a month [facility] Utilities Answer Date Recorded In the past 12 months has [facility] electric, gas, oil, or water company [...] often do you attend chur ch or anglican services? Never 03/07/2023 Do you belong to [...] Answer Date Recorded Total Score 0 01/02/2024 [facility] of Occupat ional Health [...] Recorded Do you need help finding a [facility] career center and/or a training program? [...] - Family Medicine [address] [place] [address] Shahbaz Monk DO [address], [facility] [place] [address] documented as of this encounter Procedures Procedure [...] documented as of this encounter Care Teams Wood Scrap Handler Relationship Specialty Start Date End Date Shahbaz Monk DO [address] [place] [address] PCP - General Family Medicine 02/11/22 documented as of this encounter
--- OUTSIDE RECORDS SUMMARY | 2025-02-07 13:40 | XMS_ITS | Encounter Summary ---
Author Organization [facility] tem Address [facility][id number] [address] [place] [address] Care Team Providers Care Nail Feeder Name Role Phone Shahbaz Monk DO Primary Care Provider + [phone] Reason for Visit * Reason Onset Date Comments Med Refill 09/12/2023 Encounter Details Date Type Department Care Team (Late st Contact Info) Description 09/12/2023 Telephone [facility] Internal Medicine - Family Medicine [address] [place] [address] Shahbaz Monk DO [address], [facility] [address] Med Refill Social History Tobacco Use Types Packs/Day Years Used Date Smoking Tobacco: Former Cigarettes 0.5 33.2 1 990 - 09/11/2022 Smokeless Tobacco: Never Alcohol Use Standard Drinks/Week Comments Not Currently 0 (1 standard drink = 0.6 oz pure alcohol) Occasional 6 pack once a month [facility] Utilities Answer Date Recorded In the past 12 months has [employer], gas, oil, or water [employer] threatened to shut off services in your [...] week 03/07/2023 How often do you attend [facility] or tenriism services? Never 03/07/2023 Do you belong to any clubs o r organizations such as protestant groups, unions, fraternal or athletic groups, or [...] Answer Date Recorded Total Score 0 08/30/2023 [facility] of Occupat ional Health [...] called and needs his semaglutide sent to [facility], he also wanted to know if it [...] - Family Medicine [address] [place] [address] Shahbaz Monk DO [address] [place] [address] documented as of this encounter Visit Diagnoses Not on filedocumented in this encounter Additional Health Concerns Assessment Noted Time PHQ-9 Depression Total Score: 0 08/30/19 24 3:49 PM EDT documented as of this encounter Care Teams Nail Feeder Relationship Specialty Start Date End Date Shahbaz Monk DO [address], [place] [address] PCP - General Family Medicine 02/11/22 documented as of this encounter
--- OUTSIDE RECORDS SUMMARY | 2025-02-07 13:40 | XMS_ITS | Encounter Summary ---
Author Organization [facility] [employer] Sys tem Address [id number] [address] [place] [address] Care Team Providers Care Human Resources Compliance Manager Name Role Phone Shahbaz Monk Primary Care Provider + [phone] Encounter Details Date Type Department Care Team (Late st Contact Info) Description 08/22/2023 Orders Only [facility] - Family Medicine [address] [place] [address] External, Scanning Provider Social History Tobacco Use Types Packs/Day Years Used Date Smoking Tobacco: Former Cigarettes 0.5 33.2 1 990 - 09/11/2022 Smokeless Tobacco: Never Alcohol Use Standard Drinks/Week Comments Yes 0 (1 standard drink = 0.6 oz pur e alcohol) Occasional 6 pack once a month [facility] Utilities Answer Date Recorded In the [...] often do you attend chur ch or alevism services? Never 03/07/2023 Do you [...] Answer Date Recorded Total Score 0 08/04/2023 [facility] of Occupat ional Health - Occupational Stress [...] Recorded Do you need help finding a [facility] career center and/or a training program? No [...] - Family Medicine [address] [place] [address] Shahbaz Monk DO [address], [place] [address] documented as of this encounter Procedures Procedure [...] documented as of this encounter Care Teams Human Resources Compliance Manager Relationship Specialty Start Date End Date Shahbaz Monk DO [address], [place] [address] PCP - General Family Medicine 02/11/22 documented as of this encounter
--- OUTSIDE RECORDS SUMMARY | 2025-02-07 13:40 | XMS_ITS | Encounter Summary ---
Author Organization [facility] [employer] Sys tem Address [id number] [address] [place] [address] Care Team Providers Care Forestry Patrolman Name Role Phone Shahbaz Monk Primary Care Provider + [phone] Encounter Details Date Type Department Care Team (Late st Contact Info) Description 08/31/2024 Orders Only [facility] - Family Medicine [address] [place] [address] Ref Prov, [place] [address] Social History Tobacco Use Types Packs/Day Years Used Date Smoking Tobacco: Former Cigarettes 0.5 33.2 1 990 - 09/11/2022 Smokeless Tobacco: Never Alcohol Use Standard Drinks/Week Comments Not Currently 0 (1 standard drink = 0.6 oz pure alcohol) Occasional 6 pack once a month [facility] Utilities Answer Date Recorded In the past 12 months has [facility] electric, gas, oil, or water company threatened [...] any clubs o r organizations such as rastafari groups, unions, fraternal or athletic groups, or [...] Answer Date Recorded Total Score 0 05/28/2024 [facility] of Occupat ional Health - Occupational [...] Recorded Do you need help finding a [facility] career center and/or a training program? [...] - Family Medicine [address] [place] [address] Shahbaz Monk DO [address] [facility], [facility] [place] [address] documented as of this encounter Procedures Procedure [...] documented as of this encounter Care Teams Forestry Patrolman Relationship Specialty Start Date End Date Shahbaz Monk DO [address] [facility] [place] [address] PCP - General Family Medicine 02/11/22 documented as of this encounter
--- OUTSIDE RECORDS SUMMARY | 2025-02-07 13:40 | XMS_ITS | Encounter Summary ---
Author Organization [facility] [employer] [facility] tem Address [id number] [address] [place] [address] Care Team Providers Care Overlocker Name Role Phone Shahbaz Monk DO Primary Care Provider + [phone] Encounter Details Date Type Department Care Team (Late st Contact Info) Description 08/09/2024 [facility]phone [facility] - Family Medicine [address] [place] [address] Shahbaz Monk DO [address], [facility] [place] [address] Social History Tobacco Use Types Packs/Day Years Used Date Smoking Tobacco: Former Cigarettes 0.5 33.2 1 990 - 09/11/2022 Smokeless Tobacco: Never Alcohol Use Standard Drinks/Week Comments Not Currently 0 (1 standard drink = 0.6 oz pure alcohol) Occasional 6 pack once a month [facility] Utilities Answer Date Recorded In the past 12 months has [employer], [employer], or water [employer] threatened to shut off services in your [...] often do you attend chur ch or amish services? Never 03/07/2023 Do you belong to any clubs o r organizations such as religion groups, unions, fraternal or athletic groups, or [...] Answer Date Recorded Total Score 0 05/28/2024 [facility] of Occupat ional [facility] - Occupational Stress Questionnaire Answer Date Recorded [...] 3:35 PM EST NEEDS A REFERRAL TO [facility] documented in this encounter Plan of Treatment Upcoming Encounters Date Type Department Care Team (Late st Contact Info) Description 05/21/2025 4:15 PM EST Office Visit [facility] - Family Medicine [address] [place] [address] Shahbaz Monk DO [address] [facility] [place] [address] documented as of this encounter Visit Diagnoses Not on filedocumented in this encounter Additional Health Concerns Assessment Noted Time PHQ-9 Depression Total Score: 0 05/28/20 24 2:30 PM EST documented as of this encounter Care Teams Overlocker Relationship Specialty Start Date End Date Shahbaz Monk DO [address] [place] [address] PCP - General Family Medicine 02/11/22 documented as of this encounter
--- OUTSIDE RECORDS SUMMARY | 2025-02-07 13:40 | XMS_ITS | Encounter Summary ---
Author Organization [facility] [employer] Sys tem Address [facility] [id number] [address] [place] [address] Care Team Providers Care Ivory Carver Name Role Phone Shahbaz Monk DO Primary Care Provider + [phone] Reason for Visit * Reason Comments Med Refill Encounter Details Date Type Department Care Team ([facility] Contact Info) Description 10/27/2022 Refill [facility] - Family Medicine [address] [place] [address] Shahbaz Monk DO [address], [facility] [address] Essential (primary) hypertension; Spondylolisthesis, lumbar region Social [...] Medicine - Family Medicine [address] [place] [address] Shahbaz Monk DO [address] [facility] [place] [address] documented as of this encounter Visit Diagnoses Diagnosis Essential (primary) hypertension Unspecified essential hypertension Spondylolisthesis, lumbar region documented in this encounter Additional Health Concerns Assessment Noted Time PHQ-9 Depression Total Score: 0 08/17/19 23 4:45 PM EST documented as of this encounter Care Teams Ivory Carver Relationship Specialty Start Date End Date Shahbaz Monk DO [address] [facility] [place] [address] PCP - General Family Medicine 02/11/22 documented as of this encounter
--- OUTSIDE RECORDS SUMMARY | 2025-02-07 13:41 | XMS_ITS | Encounter Summary ---
Author Organization [facility] [employer] Sys tem Address [facility] [place]-[id number] [address] [place] [address] Care Team Providers Care Primary Special Educator Name Role Phone Shahbaz Monk Primary Care Provider + [phone] Encounter Details Date Type Department Care Team (Late st Contact Info) Description 02/27/2024 Orders Only [facility] - Family Medicine [address] [place] [address] Ref Prov, [place] [address] Social History Tobacco Use Types Packs/Day Years Used Date Smoking Tobacco: Former Cigarettes 0.5 33.2 1 990 - 09/11/2022 Smokeless Tobacco: Never Alcohol Use Standard Drinks/Week Comments Not Currently 0 (1 standard drink = 0.6 oz pure alcohol) Occasional 6 pack once a month [facility] Utilities Answer Date Recorded In the past 12 months has [facility] electric, gas, oil, or water company threatened [...] often do you attend chur ch or gnosticist services? Never 03/07/2023 Do you belong to [...] Recorded Do you need help finding a [facility] career center and/or a training [...] Medicine - Family Medicine [address] [place] [address] Shahbaz Monk DO [address], [facility] [place] [address] documented as of this encounter Procedures Procedure [...] documented as of this encounter Care Teams Primary Special Educator Relationship Specialty Start Date End Date Shahbaz Monk DO [address] [facility] [address] PCP - General Family Medicine 02/11/22 documented as of this encounter
--- OUTSIDE RECORDS SUMMARY | 2025-02-07 13:41 | XMS_ITS | Encounter Summary ---
Author Organization [facility] [employer] Sys tem Address [facility] [place]-[id number] [address] [place] [address] Care Team Providers Care Factory Manager Name Role Phone NatyShahbaz quintero Molina PERKINS Primary Care Provider + [phone] Encounter Details Date Type Department Care Team (Late st Contact Info) Description 02/24/2024 Orders Only [facility] Internal Medicine - Family Medicine [address] [place] [address] Kath Irvin CMA Right ureteral stone Social History Tobacco Use Types Packs/Day Years Used Date Smoking Tobacco: Former Cigarettes 0.5 33.2 1 990 - 09/11/2022 Smokeless Tobacco: Never Alcohol Use Standard Drinks/Week Comments Not Currently 0 (1 standard drink = 0.6 oz pure alcohol) Occasional 6 pack once a month [facility] Utilities Answer Date Recorded In the [...] often do you attend chur ch or orthodoxy services? Never 03/07/2023 Do you belong to [...] Date Recorded Total Score 0 01/02/2024 [facility] of Occupat ional Health - Occupational Stress [...] Recorded Do you need help finding a [facility] career center and/or a training program? [...] - Family Medicine [address] [place] [address] Shahbaz Monk DO [address], [place] [address] documented as of this encounter Procedures Procedure Name Priority Date/Time Associated Diagnosis Comments AMB REFERRAL TO UROLOGY Routine 02/24/2024 8:42 AM EDT Right ureteral stone URINE CULTURE Routine 02/23/2024 2:01 PM EDT URINALYSIS Routine 02/23/2024 1:40 PM EDT documented in this encounter Results * Ambulatory referral to Urology (02/24/2024 8:42 AM EDT) us Itzel White APRN-CHINESE INSTRUCTOR OUTPATIENT REFERRAL [place] CRUZ Final Result Performing Organization Address [facility] Co de Phone Number MANUALLY TRANSCRIBED RESULTS * Urine Culture (02/23/2024 2:01 PM EDT) Urine us Not In System Ref Prov MICROBIOLOGY - GENERAL OR DERABLES Final Result Performing Organization Address City/[facility] Co de Phone Number MANUALLY TRANSCRIBED [...] documented as of this encounter Care Teams Factory Manager Relationship Specialty Start Date End Date Shahbaz Monk DO [address], [place] [address] PCP - General Family Medicine 02/11/22 documented as of this encounter
--- OUTSIDE RECORDS SUMMARY | 2025-02-07 13:58 | XMS_ITS | CCD ---
Author Organization [facility] Care Team Providers Care [address] Magistrate Name Role Phone Christina Apodaca Unavailable Unavailable Yandel Garcia Unavailable Unavailab estefani Garcia, Yandel Martino Unavailable Unavailab Christina Smith Unavailable Unavailable Yandel Garcia Unavailable Unavailab Kendy Vázquez Unavailable LIVE, DR SHAHBAZ Auguste Primary Care Unavailable REINECK, DR MONIK Auguste Admitting Unavailabl e REINECK, DR MONIK Auguste Attending Unavailabl e ZIEBER, DR SALINA Lopez Consulting Unavailable ADARSH CRUZ Consulting Unavailable FURLOERNESTINE, DR SHAHBAZ Auguste Admitting Unavailable FURLONG, DR [...] Attending Unavailable SHAHBAZ MANCINI Primary Care Physician [phone] Kiarra Min Attending Unavailable Kiarra Min Admitting Unavailable Kiarra Min Attending Unavailable JOSIE GRANDE Referring Unavailable SHAHBAZ MANCINI Primary Care Unavailable SHAHBAZ MANCINI Referring Unavailable SHAHBAZ MANCINI Primary Care Unavailable SHAHBAZ MANCINI Referring Unavailable SHAHBAZ MANCINI Primary Care Unavailable Furlong Shahbaz PERKINS Primary Care Provider [phone] Kiarra Min Attending Unavailable Kiarra Min Attending Unavailable ITZEL GIBBS Referring Unavailable Kiarra Min Attending Unavailable Kiarra Min Admitting Unavailable Furlong DO, Shahbaz Auguste Primary Care Provider [phone] STEVEN PADILLA Attending Unavailable STEVEN PADILLA Attending Unavailable Mechelle, Kiarra Gant Attending Unavailable Galelida, Kiarra Gant Attending Unavailable Kiarra Min Admitting Unavailable ITZEL GIBBS Attending Unavailable FURLONG, SHAHBAZ G Referring [...] Unavailable FURLONG, SHAHBAZ G Primary Care Unavailable Giedraitis , Andrius Dela Cruz Attending Unavailable Giedraitis MD, Andrius Jose De Jesus Attending Unavailable Giedraitis MD, Andrius Vjames Attending Unavailable Giedraitis MD, Andrius Vjames Attending Unavailable Giedraitis MD, Andrius Vytclarisa Attending Unavailable Giedraitis MD, Andrius Vytclarisa Attending Unavailable Giedraitis MD, Andrius Vytautas Attending Unavailable Medications Current Medications Medication Drug Class(es) Dates Sig (Normalized) Sig (Original) acetaminophen 325 mg / HYDROcodone bitartrate 5 mg oral tablet (15 sources) Opioid Agonist Start: 12-03-2024 HYDROcodone-acetam inophen [...] 08/15/2023 Active baclofen 10 mg oral tablet (7 sources) gamma-Aminobutyric Acid-ergic Agonist Start: 09-05-2024 baclofen (LIORESAL) 10 mg tablet 09/05/2024 Active fenofibrate 160 mg oral tablet (20 sources) Peroxisome Proliferator Receptor alpha Agonist Start: 02-02-2023 End: 02-05-2025 take 1 tablet by mouth in the morning fenofibrate (LOFIBRA) 160 mg tablet Take 1 tablet (160 mg total) by mouth in the morning. 90 tablet 1 02/05/2025 Active take 1 tablet by zoila th [...] 01/14/2025 Active meloxicam 7.5 mg oral tablet (7 sources) Nonsteroidal Anti-inflammatory Drug Start: 09-05-2024 meloxicam (MOBIC) 7.5 mg tablet Take 1 tablet (7.5 mg total) by mouth. 09/05/2024 Active 24 hr metoprolol succinate 50 mg extended release oral tablet (20 sources) beta-Adrenergic Luiza Start: 02-05-2025 take 1 tablet by mouth every twenty-four hours in the morning metoprolol succinate XL (TOPROL XL) 50 mg 24 hr tablet TAKE 1 TABLET BY MOUTH IN THE MORNING 90 tablet 1 02/05/2025 Active Start: 08-12-2023 End: 02-05-2025 take 0.5 tablet by mouth once daily in the morning, then take 1 tablet by mouth once daily in the morning metoprolol succinate XL (TOPROL XL) 50 mg 24 hr tablet Take 0.5 tablets (25 mg total) by mouth every morning. TAKE 1 TABLET BY MOUTH ONCE DAILY EVERY MORNING 90 tablet 1 02/05/2025 02/05/2025 Discontinued Start: 05-03-2023 End: 08-12-2023 take 1 tablet by mouth every twenty-four hours in the morning metoprolol succinate XL (TOPROL XL) 50 mg 24 hr tablet Take 1 tablet (50 mg total) by mouth in the morning. 0 05/03/2023 08/12/2023 Discontinued take 1 tablet by zoila every twenty-four hours Metoprolol Succinate ER 25 [...] Daily, # 90 tab(s), Refills(s) 3, Pharmacy: [facility], 168, cm, 03/01/24 15:29:00 EDT, [...] Active tamsulosin hydrochloride 0.4 mg oral capsule (17 sources) alpha-Adrenergic Luiza Start: 05-28-2024 take 1 capsule by mouth once daily tamsulosin (FLOMAX) 0.4 mg capsule Take 1 capsule (0.4 mg total) by mouth nightly. Has questions 05/28/2024 Active Start: 05-24-2024 take 1 capsule by [facility] once daily Flomax 0.4 mg Cap 0.4 mg = 1 cap(s), Oral, Daily, # 30 cap(s), Refills(s) 11, Pharmacy: [facility], 168, cm, 05/24/24 9:22:00 EST, Height/Length Dosing, 102.6, kg, 05/24/24 9:22:00 EST, Weight Dosing Start Date: 05/24/24 Status: Ordered Start: 02-23-2024 take 1 capsule by [facility] once daily Flomax 0.4 mg Cap 0.4 mg = 1 cap(s), Oral, Daily, # 30 cap(s), Refills(s) 11, Pharmacy: [facility], 168, cm, 02/23/24 10:12:00 EDT, Height/Length [...] 06/21/2023 Discontinued (Therapy completed) polyethylene glycol 3350 00127 mg powder for oral solution (9 sources) [...] 2 Resolved: 2 Episodic Malaise and fatigue (15 sources) Fatigue; Translations: [Other fatigue] Onset: 4 04-03-2024 Episodic Mood disorders (20 sources) Mood disorders Onset: 4 Resolved: 5 05-28-2024 Other acquired deformities (1 source) Spondylolisthesis L5/S1 level; Translations: [Spondylolisthesis, lumbosacral region] Episodic Other acquired deformities (1 source) Spondylolisthesis, lumbar region; Translations: [Spondylolisthesis, lumbar region] Onset: 4 Episodic Other aftercare (1 source) Other correction (current) drug therapy; Translations: [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] Onset: 1 Episodic Other [...] Name Value Interpretation Reference Range Facility POCT [facility] 12-24-2024 [facility] Ambulatory Visit Summaryon 0 10-04-2024 Ambulatory Visit [...] PM EST With: Where: [facility] [address] [address]- Tuesday2025 3:20 PM EST With: STEVEN PADILLA PA-C Where: [facility] [address] [address]- You Need to Schedule the Following Appointments Follow Up with STEVEN PADILLA PA-C, URL When: In 9 months Comments: w/ PSA Where: [address] [place] [address] Medications What How Much When Why Instructions Unchanged oxybutynin (oxybutynin 5 mg ER Tab) 1 Tablets By Mouth Every day Pickup at [facility] Unchanged acetaminophen-hydrocod one (acetaminophen-hydroco done 325 [...] physician if questions or concerns Pharmacy Information [facility]: [address] [place], [place] [id number] [phone] Allergies No Known Allergies Problems Ongoing - [...] during the (more content not included)... Normal [facility] Urology Office/Clinic Noteon 10-04-2024 Urology Office/Clinic [...] E&M of Est. Patient Moderate 30-39 Min 45549 2. Screening PSA (prostate specific antigen) (Z12.5: [...] E&M of Est. Patient Moderate 30-39 Min 20344 3. History of kidney stones (Z87.442: Personal history of urinary calculi) 01/08/24 [facility] ER CT w/o con - mild R [...] develop more stones. Consider updating imaging at appt in June. -Increase fluids -Add lemon/passamaquoddy pleasant point to fluid intake -Call our office for any stone symptoms Ordered: E&M of Est. Patient Moderate 30-39 Min 53125 4. Asymptomatic microscopic hematuria (R31.21: Asymptomatic microscopic hematuria) 02/23/24 micro UA - RBC 0-3, cx negative Unable to provide urine sample today -Pt knows to call for gross hematuria Ordered: E&M of Est. Patient Moderate 30-39 Min 05151 Orders: oxybutynin, 5 mg = 1 tab(s), Oral, Daily, # 90 tab(s), Refills(s) 3, Pharmacy: [facility], 168, cm, 10/04/24 14:50:00 EDT, Height/Length Dosing, 100.5, kg, 10/04/24 14:50:00 EDT, Weight Dosing Follow-up With When Contact Information RANDY SWANN, STEVEN John, URL In 9 months [address] [facility] [place] [address] Additional Instructions: w/ PSA Patient [...] Daily, 11 refills (more content not included)... [facility] Comment on above: Result Comment: Elec tronically Signed By: iKarra Christiansen\.br\Date and Time Signed: 10/04/24 15:14 EDT Reminderson 08-08-2024 Reminders Reminders From: Carlie Ramirez To: EU - Administrative; Sent: 05/24/2024 15:40:45 EST Show up: 07/14/2024 15:40:00 EST Subject: Ambulatory Reminder Due Date/Time: 09/11/2024 15:40:00 EDT Reminder/Recall Patient needs scheduled with AG for a 3-4m f/u in [place], schedule not built for her yet. due back the beginning of September, Pt has been scheduled for 09/2024 w/AG Normal [facility] 05-28-2024 Albumin [Mass/Vol] 4.5 g/dL Normal 3.2-5.3 [facility] Comment on above: Performed By: #### Neyda LAU, 20493-7 #### [facility] ([id number]) [address] [place] [address] ALP [Catalytic activity/Vol] 75 U/L Normal 39-130 [facility] Comment on above: Performed By: #### Neyda LAU, 32786-2 #### [facility] ([id number]) [address], [address] [place] [address] ALT [Catalytic activity/Vol] 29 U/L Normal 0-40 [facility] Comment on above: Performed By: #### Neyda LAU, 87719-8 #### [facility] ([id number]) [address] [place] [address] Anion gap [Moles/Vol] 10 mmol/L Normal 5-15 [facility] Comment on above: Performed By: #### Neyda LAU, 51393-6 #### [facility] ([id number]) [address] [place] [address] AST [Catalytic activity/Vol] 28 U/L Normal 0-41 [facility] Comment on above: Performed By: #### Neyda LAU, 65753-3 #### [facility] ([id number]) [address] [place] [address] Bilirubin [Mass/Vol] 0.4 mg/dL Normal 0.3-1.2 [facility] Comment on above: Performed By: #### Neyda LAU, 50055-8 #### [facility] ([id number]) [address], [address] [place] [address] Calcium [Mass/Vol] 10.4 mg/dL Normal 8.5-10.5 [facility] Comment on above: Performed By: #### Neyda LAU 91956-2 #### [facility] ([id number]) [address], [address] [place] [address] Chloride [Moles/Vol] 105 mmol/L Normal 98-109 [facility] Comment on above: Performed By: #### Neyda LAU, 74310-9 #### [facility] ([id number]) [address] [place] [address] CO2 [Moles/Vol] 26 mmol/L Normal 22-32 [facility] Comment on above: Performed By: #### Neyda LAU, 74916-3 #### [facility] ([id number]) [address], [address] [place] [address] Creatinine [Mass/Vol] 1.05 mg/dL Normal 0.60-1.30 [facility] Comment on above: Result Comment: METH OD TRACEABLE TO IDMS STANDARD Performed By: #### Neyda LAU, 60189-1 #### [facility] ([id number]) [address], [address] [place] [address] GFR/1.73 sq M.predicted among non-blacks MDRD (S/P/Bld) [Vol rate/Area] 86 mL/min/{1.73_m2} Normal >59 [facility] Comment on above: Result Comment: Reported eGFR is based on the CKD-EPI 2020 equation that does not use a race coefficient. Performed By: #### Neyda LAU, 54464-3 #### [facility] ([id number]) [address] [place] [address] Glucose [Mass/Vol] 132 mg/dL High 65-99 [facility] Comment on above: Performed By: #### Neyda LAU, 46838-4 #### [facility] ([id number]) [address], [address] [place] [address] Potassium [Moles/Vol] 4.2 mmol/L Normal 3.5-5.0 [facility] Comment on above: Performed By: #### Neyda LAU, 70078-5 #### [facility] ([id number]) [address] [place] [address] Protein [Mass/Vol] 7.6 g/dL Normal 6.0-8.0 [facility] Comment on above: Performed By: #### Neyda LAU, 17775-6 #### [facility] ([id number]) [address] [place] [address] Sodium [Moles/Vol] 141 mmol/L Normal 134-146 [facility] Comment on above: Performed By: #### Neyda LAU, 10263-8 #### [facility] ([id number]) [address] [place] [address] Urea nitrogen [Mass/Vol] 18 mg/dL Normal 5-23 [facility] Comment on above: Performed By: #### Neyda LAU, 18999-6 #### [facility] ([id number]) [address] [place] [address] Lipid 1996 panelon 4 Cholesterol [Mass/Vol] 118 mg/dL Low 150-200 [facility] Comment on above: Performed By: #### Neyda LAU, 67986-1 #### [facility] ([id number]) [address], [facility] [address] [place] [address] Cholesterol in HDL [Mass/Vol] 27 mg/dL Low >39 [facility] Comment on above: Result Comment: HDL <40 mg/dL - High Risk HDL > or = 40mg/dL- Desirable HDL >60 mg/dL - Negative Risk Performed By: #### Neyda LAU, 12161-9 #### [facility] ([id number]) [address] [place] [address] Cholesterol in LDL [Mass/Vol] 44 mg/dL Normal <130 [facility] Comment on above: Result Comment: LDL <100 mg/dL - Desirable LDL >160 mg/dL - High Risk Performed By: #### Neyda LAU, 31510-5 #### [facility] ([id number]) [address] [address] [place] [address] Cholesterol in VLDL [Mass/Vol] 47 mg/dL High 0-30 [facility] Comment on above: Performed By: #### Neyda LAU, 67926-2 #### [facility] ([id number]) [address] [address] CHOLESTEROL:HDL 4.4 Normal 1.0-5.0 [facility] Comment on above: Performed By: #### Neyda LAU, 07052-9 #### [facility] ([id number]) [address] [address] Triglyceride [Mass/Vol] 233 mg/dL High 27-150 [facility] Comment on above: Performed By: #### Neyda LAU, 69533-9 #### [facility] ([id number]) [address] [address] Ambulatory Visit Summaryon 1 07-25-2023 Ambulatory Visit Summary Ambulatory Visit Summary MED JORGITO :1975 Visit Date:01/25/2024 Ambulatory Visit Instructions Your [...] used for this result was chemiluminescence using [employer] ([employer])'s Access Hybritech PSA reagent. PSA Totalon 05-24-2024 Prostate specific Ag [Mass/Vol] 0.8 ng/mL Normal 0.1-3.5 [facility] Comment on above: Result Comment: The concentration of PSA determined by different manufacturers can vary due to differences in assay methods and reagent specificity. Values obtained from different assay methods cannot be used interchangeably. The methodology used for this result was chemiluminescence using [employer] ([employer])'s Access Hybritech PSA reagent. Performed By: #### 1 [id number] #### [facility] [address] [place] [address] Urology Office/Clinic Noteon 05-24-2024 Urology Office/Clinic Note [...] (Z87.442: Personal history of urinary calculi) 01/08/24 [facility] ER CT w/o con - mild R [...] stone within right ureter. Pt went to [facility] ER on 01/08/24 due to pain. Pt [...] ensure stone passage. Pt then went to [facility] ER on 02/27/24 for gross hematuria, abdominal/scrotal pain and also experienced urinary frequency and urgency. No labs or imaging were completed at that visit. Advised pt that he most likely was passing a stone at that time. IVP completed 03/06/24, no stone identified. This is patient's first stone event. Today, he denies further stone events. Denies gross hematuria. -Increase fluids -Add lemon/passamaquoddy pleasant point to fluid intake -Call our office for [...] by me. Authentic (more content not included)... [facility] Comment on above: Result Comment: Elec tronically Signed By: Kiarra Christiansen\.br\Date and Time Signed: 05/24/24 11:08 EST\.br\Electronically Co-Signed By: Stefany Farooq PA-C\.br\Date and Time Co-Signed: 05/24/24 10:54 EST Provider Letteron 03-06-2024 Provider Letter Provider Letter March 06, 2024 JORGITO JOVEL [address] [place] [id number] : 1975 To Whom It May Concern, Please excuse above patient from work. Date of appointment: From: 03/06/2024 To: _ May Return to Work On:03/06/2024 Restrictions: none Comments: Any questions, please call our office Sincerely, [facility] [address], [place] [address] [facility] Ambulatory Visit Summaryon 0 03-01-2024 Ambulatory Visit [...] With: Kiarra Christiansen Where: [facility] [address] [place] [address]- Medications What How Much When Why Instructions [...] [facility]. Neg micro UA and cx 02/22/23. [facility] ER 02/27/24 due to gross hematuria without [...] (Z87.442: Personal history of urinary calculi) 01/08/[address] [facility] ER CT w/o con - mild R hydronephrosis due to a 5mm proximal R ureteral stone near the UPJ. No additional upper or lower urinary tract calculi are seen on either side. There are no other acute findings in the abdomen or pelvis 02/16/24 KUB - no appreciable urinary tract calculi Pt went to [facility] ER on 01/08/24 due to pain. Pt [...] not had pain. Pt then went to [facility] ER on 02/27/24 for gross hematuria, abdominal/scrotal [...] [place]. [place]. Discussed increasing fluids and adding lemon/passamaquoddy pleasant point to patient's regimen, pt verbalizes understanding. Briefly discussed metabolic workup with patient should he develop another stone. -IVP now at [facility], call patient with results -If a stone is present, we will set patient up with appt with Dr. Nunn to discuss treatment. If no stone on IVP, this will ensure stone passage and pt to follow up as scheduled -Increase fluids, avoid bladder irritants -Add lemon/passamaquoddy pleasant point, lemonade to fluid intake -Call our office for any stone symptoms -F/U 1 year with KUB/KECIA Ordered: E&M of Est. Patient Moderate 30-39 Min 20015 2. Gross hematuria (R31.0: Gross hematuria) UA today negative for blood or infection -See #1 Ordered: Creatinine E&M of Est. Patient Moderate 30-39 Min 94781 Urnls Dip Stick Auto w/o Microscopy POC 60346 XR IVP 3. BPH with obstruction/lower urinary [...] Mechelle BARCENAS, Kiarra Gant\.br\Date and Time Signed: 03/01/24 15:58 EDT C Urineon 02-25-2024 Bacteria identified Cx Nom (U) Microbiology PROCEDURE: Urine Culture [R1] SOURCE: U Random BODY SITE: COLLECTED DATE/TIME: 02/23/2024 11:17 EDT RECEIVED DATE/TIME: 02/23/2024 19:34 EDT START DATE/TIME: 02/23/2024 19:34 EDT FREE TEXT SOURCE: Mechelle BARCENAS, Kiarra Ham FINAL REPORTS Final Report [] Verified Date/Time: 02/25/2024 09:46 EDT No growth at 2 days. Performing Locations R1: This test was performed at: [facility], [address] [place] [address], [address] , , [facility] Comment on above: Performed By: #### 2 [id number] #### [facility] [address] [place] [address] Ambulatory Visit Summaryon 0 02-23-2024 Ambulatory Visit Summary Ambulatory Visit Summary MED JORGITO :1975 Visit Date:01/25/2024 Ambulatory Visit Instructions Your [...] With: Kiarra Christiansen Where: [facility] [address] [place] [address]- Medications What How Much When Instructions Unchanged [...] you for choosing us for your care. [facility] Provider Letteron 02-23-2024 Provider Letter Provider Letter February 23, 2024 JORGITO JOVEL [facility] [place] [address] : 1975 To Whom It May Concern, Please excuse above patient from work. Date of appointment: From: 02/23/2024 To: _ May Return to Work On:02/23/2024 Restrictions: none Comments: Any questions, please call our office Sincerely, [facility] [address] [facility], [place] [address] [facility] URINALYSISOrdered By: SYSTEM SYSTEM on 02-23-2024 Bilirubin Ql (U) Negative Normal Negativemg/ d L [facility] Auto SS Clarity (U) Ex.Turbid *ABN* (02/23/24 11:17 AM) Invalid Interpretation Code Clear [facility] Auto SS Color (U) Yellow 1 (02/23/24 11:17 AM) Normal Yellow [facility] Auto SS Comment on above: Interpretive Data: M icroscopic readings are only performed on those samples that meet specific criteria set forth by [facility]. Crystals.amorphous Computer assisted Ql (U) Present graded/HPF Invalid Interpretation Code [facility] UA Auto SS Glucose Ql (U) Negative Normal Negativemg/d L [facility] UA Auto SS Hemoglobin Auto test strip [...] AM) Invalid Interpretation Code 5.0 - 9.0 [facility] Auto SS Protein Ql (U) Negative Normal Negativemg/d L [facility] UA Auto SS RBC Ql (U) 0-3 graded/HPF Normal 0-3graded/HP F [facility] UA Auto SS Specific gravity (U) [Rel density] 1.025 *NA* (02/23/24 11:17 AM) Invalid Interpretation Code 1.005 - 1.030 [facility] UA Auto SS Urobilinogen (U) [Mass/Vol] Negative Normal Negativemg/d L [facility] UA Auto SS URINALYSISOrdered By: Kathy Busch on 02-23-2024 UA Spec Desc Clean Catch (02/23/24 11:17 AM) Normal [facility] UA Auto SS Urinalysis with Microon 02-11 Bilirubin Ql (U) Negative Normal Negative [facility] Comment on above: Performed By: #### 4 [id number] #### [facility] [address] [place] [address] Clarity (U) Ex.Turbid Abnormal Clear [facility] Comment on above: Performed By: #### 4 [id number] #### [facility] [address] [place] [address] Color (U) Yellow Normal Yellow [facility] Comment on above: Result Comment: Micr oscopic readings are only performed on those samples that meet specific criteria set forth by [facility]. Performed By: #### 4 [id number] #### [facility] [address] [place] [address] Crystals.amorphous Computer assisted Ql (U) Present Abnormal [facility] Comment on above: Performed By: #### 4 [id number] #### [facility] [address] [place] [address] Glucose Ql (U) Negative Normal Negative [facility] Comment on above: Performed By: #### 4 [id number] #### [facility] [address] [place] [address] Hemoglobin Auto test strip (U) [Mass/Vol] Negative Normal Negative [facility] Comment on above: Performed By: #### 4 [id number] #### [facility] [address] [place] [address] Ketones Auto test strip Ql (U) Negative Normal Negative [facility] Comment on above: Performed By: #### 4 [id number] #### [facility] [address] [place] [address] Leukocyte esterase Auto test strip Ql (U) Negative Normal Negative [facility] Comment on above: Performed By: #### 4 [id number] #### [facility] [address] [place] [address] Mucus Auto Ql (U) 1+ CD:[id number] Abnormal Negative [facility] Comment on above: Performed By: #### 4 [id number] #### [facility] [address] [place] [address] Nitrite Auto test strip Ql (U) Negative Normal Negative [facility] Comment on above: Performed By: #### 4 [id number] #### [facility] [address] [place] [address] pH (U) 5.0 [pH] Invalid Interpretation Code 5.0-9.0 [facility] Comment on above: Performed By: #### 4 [id number] #### [facility] [facility] [address] [place] [address] Protein Ql (U) Negative Normal Negative [facility] Comment on above: Performed By: #### 4 [id number] #### [facility] [address] [place] [address] RBC Ql (U) 0-3 Normal 0-3 [facility] Comment on above: Performed By: #### 4 [id number] #### [facility] [address] [place] [address] Specific gravity (U) [Rel density] 1.025 Invalid Interpretation Code 1.005-1.030 [facility] Comment on above: Performed By: #### 4 [id number] #### [facility] [address] [place] [address] Urobilinogen (U) [Mass/Vol] Negative Normal Negative [facility] Comment on above: Performed By: #### 4 [id number] #### [facility] [address] [place] [address] Type of Urine collection method Clean Catch Normal [facility] Comment on above: Performed By: #### 4 [id number] #### [facility] [address] [place] [address] COMPREHENSIVE METABOLIC PANE [facility] 08-30-2023 Albumin [Mass/Vol] 4.1 g/dL Normal 3.2-5.3 [facility] Comment on above: Performed By: #### C SID, [id number] #### [facility] ([id number]) [address], [address] [place] [address] ALP [Catalytic activity/Vol] 32 U/L Low 39-130 [facility] Comment on above: Performed By: #### C SID, [id number] #### [facility] ([id number]) [address] [place] [address] ALT [Catalytic activity/Vol] 58 U/L High 0-40 [facility] Comment on above: Performed By: #### Neyda LAU, #### [facility] ([id number]) [address] [place] [address] Anion gap [Moles/Vol] 9 mmol/L Normal 5-15 [facility] Comment on above: Performed By: #### Neyda LAU, [id number] #### [facility] ([id number]) [address] [place] [address] AST [Catalytic activity/Vol] 40 U/L Normal 0-41 [facility] Comment on above: Performed By: #### Neyda LAU, #### [facility] ([id number]) [address], [address] [place] [address] Bilirubin [Mass/Vol] 0.3 mg/dL Normal 0.3-1.2 [facility] Comment on above: Performed By: #### Neyda LAU, #### [facility] ([id number]) [address], [address] [place] [address] Calcium [Mass/Vol] 9.7 mg/dL Normal 8.5-10.5 [facility] Comment on above: Performed By: #### Neyda LAU, #### [facility] ([id number]) [address], [address] [place] [address] Chloride [Moles/Vol] 107 mmol/L Normal 98-109 [facility] Comment on above: Performed By: #### Neyda LAU, #### [facility] ([id number]) [address], [address] [place] [address] CO2 [Moles/Vol] 26 mmol/L Normal 22-32 [facility] Comment on above: Performed By: #### Neyda LAU, #### [facility] ([id number]) [address], [address] [place] [address] Creatinine [Mass/Vol] 1.18 mg/dL Normal 0.60-1.30 [facility] Comment on above: Result Comment: METH OD TRACEABLE TO IDMS STANDARD Performed By: #### C SID, #### [facility] ([id number]) [address] [place] [address] GFR/1.73 sq M.predicted among non-blacks MDRD (S/P/Bld) [Vol rate/Area] 75 mL/min/{1.73_m2} Normal >59 [facility] Comment on above: Result Comment: Reported eGFR is based on the CKD-EPI 2020 equation that does not use a race coefficient. Performed By: #### C SID, #### [facility] ([id number]) [address] [place] [address] Glucose [Mass/Vol] 92 mg/dL Normal 65-99 [facility] Comment on above: Performed By: #### Neyda LAU, #### [facility] ([id number]) [address] [place] [address] Potassium [Moles/Vol] 4.1 mmol/L Normal 3.5-5.0 [facility] Comment on above: Performed By: #### Neyda LAU, #### [facility] ([id number]) [address] [place] [address] Protein [Mass/Vol] 6.8 g/dL Normal 6.0-8.0 [facility] Comment on above: Performed By: #### Neyda LAU, #### [facility] ([id number]) [address] [place] [address] Sodium [Moles/Vol] 142 mmol/L Normal 134-146 [facility] Comment on above: Performed By: #### C SID, #### [facility] ([id number]) [address] [place] [address] Urea nitrogen [Mass/Vol] 23 mg/dL Normal 5-23 [facility] Comment on above: Performed By: #### C SID, [id number] #### [facility] ([id number]) [address] [place] [address] Comprehensive metabolic pane drake 08-30-2023 Albumin [Mass/Vol] 4.1 g/dL 3.2 - 5.3 g/dL [facility] ALP [Catalytic activity/Vol] 32 U/L Low 39 - 130 U/L [facility] ALT No additional P-5'-P [Catalytic activity/Vol] 58 U/L High 0 - 40 U/L [facility] Anion gap [Moles/Vol] 9 mmol/L 5 - 15 mmol/L [facility] AST [Catalytic activity/Vol] 40 U/L 0 - 41 U/L [facility] Bilirubin [Mass/Vol] 0.3 mg/dL 0.3 - 1 .2 mg/dL [facility] Calcium [Mass/Vol] 9.7 mg/dL 8.5 - 10. 5 mg/dL [facility] Chloride [Moles/Vol] 107 mmol/L 98 - 10 9 mmol/L [facility] CO2 [Moles/Vol] 26 mmol/L 22 - 32 mmol/L [facility] Creatinine [Mass/Vol] 1.18 mg/dL 0.60 - 1.30 mg/dL [facility] Comment on above: METHOD TRACEABLE TO IDWA STANDARD eGFR (CKD-EPI)non-race dependent 75 - PINF [facility] Comment on above: Reported eGFR is based on the CKD-EPI 2020 equation that does not use a race coefficient. Glucose [Mass/Vol] 92 mg/dL 65 - 99 mg/dL [facility] Potassium [Moles/Vol] 4.1 mmol/L 3.5 - 5.0 mmol/L [facility] Protein [Mass/Vol] 6.8 g/dL 6.0 - 8.0 g/dL [facility] Sodium [Moles/Vol] 142 mmol/L 134 - 146 mmol/L [facility] Urea nitrogen [Mass/Vol] 23 mg/dL 5 - 23 mg/dL [facility] MAGNESIUMon 08-30-2023 Magnesium [Mass/Vol] 1.7 mg/dL Low 1.8-2.6 [facility] Comment on above: Performed By: #### C , [id number] #### [facility] ([id number]) [address], [address] [place] [address] Magnesiumon 08-30-2023 Magnesium [Mass/Vol] 1.7 mg/dL Low 1.8 - 2 .6 mg/dL [facility] No Panel Informationon 08-29 Interpretation and review of laboratory results Abnormal [facility] COVID Quick Testingon 2021 Result Negative [employer] Other COMPREHENSIVE METABOLIC PANE [facility] 06-02-2021 Albumin [Mass/Vol] 4.2 g/dL Normal 3.6-5.1 [facility] Comment on above: Performed By: #### 1 023, 6268 #### [facility] [place] [address] Policy Issue Clerk: Curtis Doan MD Albumin/Globulin [Mass ratio] 1.6 {ratio} Normal 1.0-2.5 [facility] Comment on above: Performed By: #### 1 230, 1850 #### [facility] [place] [address] Policy Issue Clerk: Curtis Doan MD ALP [Catalytic activity/Vol] 44 U/L Normal 36-130 [facility] Comment on above: Performed By: #### 1 023, 0960 #### [facility] [place] [address] Policy Issue Clerk: Curtis Doan MD ALT [Catalytic activity/Vol] 17 U/L Normal 9-46 [facility] Comment on above: Performed By: #### 1 023, 7600 #### [facility] [place] [address] Policy Issue Clerk: Curtis Doan MD AST [Catalytic activity/Vol] 17 U/L Normal 10-40 [facility] Comment on above: Performed By: #### 1 023, 7600 #### [facility] [place] [address] Policy Issue Clerk: Curtis Doan MD Bilirubin [Mass/Vol] 0.3 mg/dL Normal 0.2-1.2 [facility] Comment on above: Performed By: #### 1 023, 7600 #### [facility] [place] [address] Policy Issue Clerk: Curtis Doan MD Calcium [Mass/Vol] 9.6 mg/dL Normal 8.6-10.3 [facility] Comment on above: Performed By: #### 1 230, 7600 #### [facility] [place] [address] Policy Issue Clerk: Curtis Doan MD Chloride [Moles/Vol] 107 mmol/L Normal 98-110 [facility] Comment on above: Performed By: #### 1 023, 7600 #### [facility] [place] [address] Policy Issue Clerk: Curtis Doan MD CO2 [Moles/Vol] 26 mmol/L Normal 20-32 [facility] Comment on above: Performed By: #### 1 023, 7600 #### [facility] [place] [address] Policy Issue Clerk: Curtis Doan MD Creatinine [Mass/Vol] 0.89 mg/dL Normal 0.60-1.35 [facility] Comment on above: Performed By: #### 1 023, 7600 #### [facility] [place] [address] Policy Issue Clerk: Curtis Doan MD eGFR NON-AFR. [place]ER 101 mL/min/1.73m2 Normal > OR = 60 [facility] Comment on above: Performed By: #### 1 0231, 7600 #### [facility] [address], [address] [place] [address] Policy Issue Clerk: Curtis Doan MD GFR/1.73 sq M.predicted among blacks MDRD (S/P/Bld) [Vol rate/Area] 117 mL/min/{1.73_m2} Normal > OR = 60 [facility] Comment on above: Performed By: #### 1 0231, 7600 #### [facility] [address], [address] [place] [address] Policy Issue Clerk: Curtis Doan MD Globulin (S) [Mass/Vol] 2.7 g/dL Normal 1.9-3.7 [facility] Comment on above: Performed By: #### 1 023, 7600 #### [facility] [address], [address] [place] [address] Policy Issue Clerk: Curtis Doan MD Glucose [Mass/Vol] 103 mg/dL Normal 65-139 [facility] Comment on above: Result Comment: Non-fasting reference interval For someone without known diabetes, a glucose value between 100 and 125 mg/dL is consistent with prediabetes and should be confirmed with a follow-up test. Performed By: #### 1 023, 7600 #### [facility] [address], [address] [place] [address] Policy Issue Clerk: Curtis Doan MD Potassium [Moles/Vol] 4.1 mmol/L Normal 3.5-5.3 [facility] Comment on above: Performed By: #### 1 0231, 7600 #### [facility] [place] [address] Policy Issue Clerk: Curtis Doan MD Protein [Mass/Vol] 6.9 g/dL Normal 6.1-8.1 [facility] Comment on above: Performed By: #### 1 0231, 7600 #### [facility] [address], [address] [place] [address] Policy Issue Clerk: Curtis Doan MD Sodium [Moles/Vol] 140 mmol/L Normal 135-146 [facility] Comment on above: Performed By: #### 1 0231, 7600 #### [facility] [place] [address] Policy Issue Clerk: Curtis Doan MD Urea nitrogen [Mass/Vol] 27 mg/dL High 7-25 [facility] Comment on above: Performed By: #### 1 0231, 7600 #### [facility] [address], [address] [place] [address] Policy Issue Clerk: Curtis Doan MD Urea nitrogen/Creatinine [Mass ratio] 30 mg/mg High 6-22 [facility] Comment on above: Performed By: #### 1 023, 7600 #### [facility] [place] [address] Policy Issue Clerk: Curtis Doan MD LIPID PANEL, [facility] 122 Cholesterol [Mass/Vol] 123 mg/dL Normal <200 [facility] Comment on above: Order Comment: FASTI NG:NO FASTING: NO Performed By: #### 1 0231, 7600 #### [facility] [place] [address] Policy Issue Clerk: Curtis Doan MD Cholesterol in HDL [Mass/Vol] 29 mg/dL Low > OR = 40 [facility] Comment on above: Order Comment: FASTI NG:NO FASTING: NO Performed By: #### 1 023, 7600 #### [facility] [place] [address] Policy Issue Clerk: Curtis Doan MD Cholesterol in LDL [Mass/Vol] [...] LDL-C. Noman SS et al. EARNESTINE. 2013;310(19): 6746-9292 (http://education.MyCarGossip.BTC Trip/faq/QVL221) Performed By: #### 1 023, 0 #### [facility] [address], [address] [place] [address] Policy Issue Clerk: Curtis Doan MD Cholesterol.total/Ch olesterol in HDL [Mass ratio] 4.2 {ratio} Normal <5.0 [facility] Comment on above: Order Comment: FASTI NG:NO FASTING: NO Performed By: #### 1 023, 0 #### [facility] [address], [address] [place] [address] Policy Issue Clerk: Curtis Doan MD NON HDL CHOLESTEROL 94 mg/dL (calc) Normal <130 [facility] Comment on above: Order Comment: FASTI NG:NO FASTING: NO Result Comment: For patients with diabetes plus 1 major ASCVD risk factor, treating to a non-HDL-C goal of <100 mg/dL (LDL-C of <70 mg/dL) is considered a therapeutic option. Performed By: #### 1 023, 0 #### [facility] [place] [address] Policy Issue Clerk: Curtis Doan MD Triglyceride [Mass/Vol] 397 mg/dL High <150 [facility] Comment on above: Order Comment: FASTI NG:NO FASTING: NO Result Comment: If a non-fasting specimen was collected, consider repeat triglyceride testing on a fasting specimen if clinically indicated. Alex et al. J. of Clin. Lipidol. 2015;9:129-169. Performed By: #### 1 023, 0 #### [facility] [address], [address] [place] [address] Policy Issue Clerk: Curtis Doan MD CBC AUTO DIFFon 05-15-2021 BASO # 0.0 103/ul Normal 0.0-0.1 [facility] Comment on above: Performed By: #### C BC #### [facility] [address] [place] [address] Dr. Diego Covarrubias Basophils/100 WBC (Bld) 0.5 % Normal 0.2-2.0 [facility] Comment on above: Performed By: #### C BC #### [facility] [address] [place] [address] Dr. Diego Covarrubias EO # 0.1 103/ul Normal 0.0-0.7 [facility] Comment on above: Performed By: #### C BC #### [facility] [address] [place] [address] Dr. Diego Covarrubias Eosinophils/100 WBC (Bld) 1.5 % Normal 0.9-7.0 [facility] Comment on above: Performed By: #### C BC #### [facility] [address] [place] [address] Dr. Diego Covarrubias Erythrocyte distribution width (RBC) [Ratio] 12.6 % Normal 11.0-15.0 [facility] Comment on above: Performed By: #### C BC #### [facility] [address] [place] [address] Dr. Diego Covarrubias Hematocrit (Bld) [Volume fraction] 41.9 % Critically low 42.0-54.0 [facility] Comment on above: Performed By: #### C BC #### [facility] [address] [place] [address] Dr. Diego Covarrubias Hemoglobin (Bld) [Mass/Vol] 14.2 g/dL Normal 14.0-18.0 [facility] Comment on above: Performed By: #### C BC #### [facility] [address] [place] [address] Dr. Diego Covarrubias IG # 0.03 10e3/ul Normal 0.00-0.03 [facility] Comment on above: Performed By: #### C BC #### [facility] [address] [place] [address] Dr. Diego Covarrubias IG % 0.5 % Normal 0.0-0.5 [facility] Comment on above: Performed By: #### C BC #### [facility] [address] [place] [address] Dr. Diego Covarrubias LYMPH # 2.0 103/ul Normal 1.2-3.8 [facility] Comment on above: Performed By: #### C BC #### [facility] [address] [place] [address] [address] Diego Covarrubias Lymphocytes/100 WBC (Bld) 32.1 % Normal 20.5-60.0 [facility] Comment on above: Performed By: #### C BC #### [facility] [address] [place] [address] Dr. Diego Covarrubias MANUAL DIFF REQ NO [facility] Comment on above: Performed By: #### C BC #### [facility] [address] [place] [address] Dr. Diego Covarrubias MCH (RBC) [Entitic mass] 31.5 pg Normal 25.9-34.0 [facility] Comment on above: Performed By: #### C BC #### [facility] [address] [place] [address] Dr. Diego Covarrubias MCHC (RBC) [Mass/Vol] 33.9 g/dL Normal 29.9-35.2 [facility] Comment on above: Performed By: #### C BC #### [facility] [address] [place] [address] Dr. Diego Covarrubias MCV (RBC) [Entitic vol] 92.9 fL Normal 80.0-94.0 [facility] Comment on above: Performed By: #### C BC #### [facility] [address] [place] [address] Dr. Diego Covarrubias MONO # 0.8 103/ul Normal 0.3-0.8 [facility] Comment on above: Performed By: #### C BC #### [facility] [address] [place] [address] Dr. Diego Covarrubias Monocytes/100 WBC (Bld) 13.5 % Critically high 1.7-12.0 [facility] Comment on above: Performed By: #### C BC #### [facility] [address] [place] [address] [address] Diego Covarrubias NEUT # 3.2 103/ul Normal 1.4-6.5 [facility] Comment on above: Performed By: #### C BC #### [facility] [address] [place] [address] [address] Diego Covarrubias Neutrophils/100 WBC (Bld) 51.9 % Normal 43.0-75.0 [facility] Comment on above: Performed By: #### C BC #### [facility] [address] [place] [address] [address] Diego Covarrubias Platelet mean volume (Bld) [Entitic vol] 9.6 fL Normal 9.5-13.5 [facility] Comment on above: Performed By: #### C BC #### [facility] [address] [place] [address] [address] Diego Covarrubias PLT 244 103/ul Normal 150-450 [facility] Comment on above: Performed By: #### C BC #### [facility] [address] [place] [address] [address] Diego Covarrubias RBC 4.51 106/ul Critically low 4.70-6.10 [facility] [place] Comment on above: Performed By: #### C BC #### [facility] [address] [place] [address] [address] Diego Covarrubias WBC 6.2 103/ul Normal 4.0-11.0 [facility] Comment on above: Performed By: #### C BC #### [facility] [address] [place] [id number] Diego Cov[address] SINUS WO CONTRASTon 11-23 CT SINUS WO CONTRAST t Name: MED JORGITO STUDY:CT SINUS WO CONTRAST; 11/23/2017 4:50 pm [...] Clinical correlation recommended.Electronic ally signed by: JORGITO FREITAS DO Normal [facility] Initial Visit (Otolaryngolog y)on 11-21-2017 Initial Visit (Otolaryngology) Chief ComplaintThis is a new patient that is here for possible deviated septum [facility] for his chronic sinus infections. He was referred by Dr. Garcia at [facility]. Pt reports repeat sinus infections. [...] BusPIRone HCl - 15 MG Oral Tablet;Therapy: [id number] to Recorded Dispense: 0 Days ; #: Sufficient Tablet; Refill: 0; ELENITA = N; Record; Last Updated By: Amisha Matias; 11/09/2017 1:27:18 PM Vitals Vital Signs Recorded: 09Nov2017 01:42WIZgiueo0 ft 7 eyMgpsnx659 lb BMI Eggflhzcww14.75BSA Calculated2.19 Physical ExamPhysical Examination:A detailed examination of [...] concerned about his sinuses. ProcedureNASAL ENDOSCOPY (CPT 86946):To better evaluate the patient's symptoms sinonasal endoscopy [...] CT Sinus without Contrast; Status:Active; Requested for:23Nov2017; Perform:[facility];Ordered; For:Chronic sinusitis; Ordered By:Christina Apodaca;Reason: Unspecified for CT Sinus without ContrastRadiologist to Determine Optimal Study : YRequesting physician's phone/pager number? : [phone] Alerts (ie: MRSA, TB, Diabetic) : diabeticWhat [...] MedsBusPIRone HCl - 15 MG Oral Tablet;Therapy: [id number] to Recorded Signatures Electronically signed by : Christina Apodaca MD; Nov 21 2017 7:37AM EST (Author) Normal [facility] Vital Signs Date Time Vital Sign Value Performing Clinician Facility 01-14-2025 16:25-0400 Body height 166.1 cm [facility] 01-14-2025 16:25-0400 Body mass index (BMI) [Ratio] 36.01 kg/m2 Shah[facility]uddler [facility] [employer] 01-14-2025 16:25-0400 Body temperature 99.39 [degF] Shahbaz Furlong DO Work Phone: [facility] [facility] 01-14-2025 16:25-0400 Body weight 99.34 kg Shahbaz Furlong DO Work Phone: [facility] [facility] 01-14-2025 16:25-0400 Diastolic blood pressure 84 mm[Hg] Shahbaz Furlong DO Work Phone: [facility] 01-14-2025 16:25-0400 Heart rate 124 /min Shahbaz Furlong DO Work Phone: [facility] 01-14-2025 16:25-0400 Respiratory rate 18 /min Shahbaz Furlong DO Work Phone: [facility] 01-14-2025 16:25-0400 SaO2% (BldA) [Mass fraction] 98 % Shahbaz Furlong DO Work Phone: [facility] 01-14-2025 16:25-0400 Systolic blood pressure 128 mm[Hg] Shahbaz Furlong DO Work Phone: [facility] 12-24-2024 16:59-0400 Body height 166.1 cm Shahbaz Furlong DO Work Phone: [facility] 12-24-2024 16:59-0400 Body mass index (BMI) [Ratio] 36.17 kg/m2 Shahbaz Furlong DO Work Phone: [facility] 12-24-2024 16:59-0400 Body temperature 98.71 [degF] Shahbaz Furlong DO Work Phone: [facility] 12-24-2024 16:59-0400 Body weight 99.79 kg Shahbaz Furlong DO Work Phone: [facility] 12-24-2024 16:59-0400 Diastolic blood pressure 80 mm[Hg] Shahbaz Furlong DO Work Phone: [facility] 12-24-2024 16:59-0400 Heart rate 111 /min Shahbaz Furlong DO Work Phone: [facility] 12-24-2024 16:59-0400 Respiratory rate 18 /min Shahbaz Furlong DO Work Phone: [facility] 12-24-2024 16:59-0400 SaO2% (BldA) [Mass fraction] 96 % Shahbaz Furlong DO Work Phone: [facility] 12-24-2024 16:59-0400 Systolic blood pressure 120 mm[Hg] Shahbaz Furlong DO Work Phone: [facility] 09-13-2024 16:16-0400 Body height 166.1 cm Shahbaz Furlong DO Work Phone: [facility] 09-13-2024 16:16-0400 Body mass index (BMI) [Ratio] 36.76 kg/m2 Shahbaz Furlong DO Work Phone: [facility] 09-13-2024 16:16-0400 Body temperature 97.9 [degF] Shahbaz Furlong DO Work Phone: [facility] 09-13-2024 16:16-0400 Body weight 101.42 kg Shahbaz Furlong DO Work Phone: [facility] 09-13-2024 16:16-0400 Diastolic blood pressure 70 mm[Hg] Shahbaz Furlong DO Work Phone: [facility] 09-13-2024 16:16-0400 Heart rate 100 /min Shahbaz Furlong DO Work Phone: [facility] 09-13-2024 16:16-0400 Respiratory rate 18 /min Shahbaz Furlong DO Work Phone: [facility] 09-13-2024 16:16-0400 SaO2% (BldA) [Mass fraction] 98 % Shahbaz Furlong DO [facility] 09-13-2024 16:16-0400 Systolic blood pressure 90 mm[Hg] Shahbaz Furlong DO Work Phone: [facility] 07-27-2024 11:22-0500 Body height 166.1 cm Shahbaz Furlong DO Work Phone: [facility] 07-27-2024 11:22-0500 Body mass index (BMI) [Ratio] 37.12 kg/m2 Shahbaz Furlong DO [facility] 07-27-2024 11:22-0500 Body temperature 98.1 [degF] Shahbaz Furlong DO [facility] 07-27-2024 11:22-0500 Body weight 102.42 kg Shahbaz Furlong DO Work Phone: [facility] 07-27-2024 11:22-0500 Diastolic blood pressure 84 mm[Hg] Shahbaz Furlong DO Work [facility] 07-27-2024 11:22-0500 Heart rate 112 /min Shahbaz Furlong DO Work [facility] 07-27-2024 11:22-0500 Respiratory rate 18 /min Shahbaz Furlong DO Work Phone: [facility] 07-27-2024 11:22-0500 SaO2% (BldA) [Mass fraction] 98 % Shahbaz Furlong DO Work Phone: [facility] 07-27-2024 11:22-0500 Systolic blood pressure 118 mm[Hg] Shahbaz Furlong DO Work Phone: [facility] 05-24-2024 09:09-0500 Blood Pressure Location Kiarra Min [facility] 05-24-2024 09:09-0500 Diastolic blood pressure 88 mm[Hg] Kiarra Galea [facility] 05-24-2024 09:09-0500 Heart rate 76 /min Kiarra Galea [facility] 05-24-2024 09:09-0500 Systolic blood pressure 138 mm[Hg] Kiarra Galea [facility] 04-03-2024 16:38-0400 Body height 165.1 cm Shahbaz Furlong DO [facility] 04-03-2024 16:38-0400 Body mass index (BMI) [Ratio] 36.94 kg/m2 Shahbaz Furlong DO Work Phone: [facility] 04-03-2024 16:38-0400 Body temperature 98.1 [degF] Shahbaz Furlong DO Work [facility] 04-03-2024 16:38-0400 Body weight 100.7 kg Shahbaz Furlong DO [facility] 04-03-2024 16:38-0400 Diastolic blood pressure 68 mm[Hg] Shahbaz Furlong DO Work Phone: [facility] 04-03-2024 16:38-0400 Heart rate 83 /min Shahbaz Furlong DO Work [facility]: [facility] 04-03-2024 16:38-0400 Respiratory rate 18 /min Shahbaz Furlong DO Work Phone[facility] 04-03-2024 16:38-0400 SaO2% (BldA) [Mass fraction] 97 % Shahbaz Furlong DO Work Phone: [facility] 04-03-2024 16:38-0400 Systolic blood pressure 110 mm[Hg] Shahbaz Mancini DO Work Phone: [facility] 03-01-2024 15:10-0400 Blood Pressure Location Kiarra Galea [facility] 03-01-2024 15:10-0400 Body temperature 98.6 [degF] Kiarra Galea [facility] 03-01-2024 15:10-0400 Diastolic blood pressure 85 mm[Hg] Kiarra Galea [facility] 03-01-2024 15:10-0400 Heart rate 69 /min Kiarra Galea [facility] 03-01-2024 15:10-0400 Respiratory rate 17 /min Kiarra Galea [facility] 03-01-2024 15:10-0400 Systolic blood pressure 121 mm[Hg] Kiarra Galea [facility] 02-23-2024 10:08-0400 Blood Pressure Location Kiarra Galea [facility] 02-23-2024 10:08-0400 Diastolic blood pressure 88 mm[Hg] Kiarra Galea [facility] 02-23-2024 10:08-0400 Heart rate 82 /min Kiarra Galea [facility] 02-23-2024 10:08-0400 Systolic blood pressure 134 mm[Hg] Kiarra Galea [facility] 01-19-2024 15:25-0400 Body height 165.1 cm Itzel Gibbs PLASTICS PROCESS HAND-SECOND FLOOR OPERATOR Work Phone: [facility] 01-19-2024 15:25-0400 Body mass index (BMI) [Ratio] 37.67 kg/m2 Itzel Gibbs PLASTICS PROCESS HAND-SECOND FLOOR OPERATOR Work Phone: [facility] 01-19-2024 15:25-0400 Body temperature 98.01 [degF] Itzel Gibbs PLASTICS PROCESS HAND-SECOND FLOOR OPERATOR Work Phone: [facility] 01-19-2024 15:25-0400 Body weight 102.69 kg Itzel Gibbs PLASTICS PROCESS HAND-SECOND FLOOR OPERATOR Work Phone: [facility] 01-19-2024 15:25-0400 Diastolic blood pressure 70 mm[Hg] Itzel Gibbs PLASTICS PROCESS HAND-SECOND FLOOR OPERATOR Work Phone: [facility] 01-19-2024 15:25-0400 Heart rate 112 /min Itzelany Gibbs PLASTICS PROCESS HAND-SECOND FLOOR OPERATOR Work Phone: [facility] 01-19-2024 15:25-0400 SaO2% (BldA) [Mass fraction] 97 % Itzel Gibbs PLASTICS PROCESS HAND-SECOND FLOOR OPERATOR Work Phone: [facility] 01-19-2024 15:25-0400 Systolic blood pressure 124 mm[Hg] Itzel Gibbs PLASTICS PROCESS HAND-SECOND FLOOR OPERATOR Work Phone: [facility] 01-02-2024 16:09-0400 Body height 165.1 cm Shahbaz Furlong DO Work Phone: [facility] 01-02-2024 16:09-0400 Body mass index (BMI) [Ratio] 38.31 kg/m2 Hsahbaz Furlong DO Work Phone: [facility] 01-02-2024 16:09-0400 Body temperature 98.4 [degF] Shahbaz Furlong DO Work Phone: [facility] 01-02-2024 16:09-0400 Body weight 104.42 kg Shahbaz Furlong DO Work Phone: [facility] 01-02-2024 16:09-0400 Diastolic blood pressure 80 mm[Hg] Shahbaz Furlong DO Work Phone: [facility] 01-02-2024 16:09-0400 Heart rate 95 /min Shahbaz Arthurlong DO Work Phone: [facility] 01-02-2024 16:09-0400 SaO2% (BldA) [Mass fraction] 98 % Shahbaz Arthurlong DO Work Phone: [facility] 01-02-2024 16:09-0400 Systolic blood pressure 120 mm[Hg] Shahbaz Arthurlong DO Work Phone: [facility] 10-10-2023 16:11-0400 Body height 165.1 cm Josie Grande APRN-AEROBICS TEACHER Work Phone: [facility] 10-10-2023 16:11-0400 Body mass index (BMI) [Ratio] 39.8 kg/m2 Josie Grande APRN-AEROBICS TEACHER Work Phone: [facility] 10-10-2023 16:11-0400 Body temperature 98.1 [degF] Josie Grande PLASTICS PROCESS HAND-AEROBICS TEACHER Work Phone: [facility] 10-10-2023 16:11-0400 Body weight 108.5 kg Josie Grande PLASTICS PROCESS HAND-AEROBICS TEACHER Work Phone: [facility] 10-10-2023 16:11-0400 Diastolic blood pressure 80 mm[Hg] Josie Grande APRN-AEROBICS TEACHER Work Phone: [facility] 10-10-2023 16:11-0400 Heart rate 100 /min Josie Grande APRN-AEROBICS TEACHER Work Phone: [facility] 10-10-2023 16:11-0400 Respiratory rate 18 /min Josie Grande PLASTICS PROCESS HAND-AEROBICS TEACHER Work Phone: [facility] 10-10-2023 16:11-0400 SaO2% (BldA) [Mass fraction] 96 % Josie Grande PLASTICS PROCESS HAND-AEROBICS TEACHER Work Phone: [facility] 10-10-2023 16:11-0400 Systolic blood pressure 110 mm[Hg] Josie Grande PLASTICS PROCESS HAND-AEROBICS TEACHER Work Phone: [facility] 08-30-2023 15:51-0400 Body height 165.1 cm Josie Grande PLASTICS PROCESS HAND-AEROBICS TEACHER Work Phone: [facility] 08-30-2023 15:51-0400 Body mass index (BMI) [Ratio] 40 kg/m2 Josie Grande PLASTICS PROCESS HAND-AEROBICS TEACHER Work Phone: [facility] 08-30-2023 15:51-0400 Body temperature 98.1 [degF] Josie Grande PLASTICS PROCESS HAND-AEROBICS TEACHER Work Phone: [facility] 08-30-2023 15:51-0400 Body weight 109.05 kg Josie Grande PLASTICS PROCESS HAND-AEROBICS TEACHER Work Phone: [facility] 08-30-2023 15:51-0400 Diastolic blood pressure 70 mm[Hg] Josie Grande PLASTICS PROCESS HAND-AEROBICS TEACHER Work Phone: [facility] 08-30-2023 15:51-0400 Heart rate 107 /min Josie Grande PLASTICS PROCESS HAND-AEROBICS TEACHER Work Phone: [facility] 08-30-2023 15:51-0400 Respiratory rate 18 /min Josie Grande PLASTICS PROCESS HAND-AEROBICS TEACHER Work Phone: [facility] 08-30-2023 15:51-0400 SaO2% (BldA) [Mass fraction] 98 % Josie Grande PLASTICS PROCESS HAND-AEROBICS TEACHER Work Phone: [facility] 08-30-2023 15:51-0400 Systolic blood pressure 120 mm[Hg] Josie Grande APRN-AEROBICS TEACHER Work Phone: [facility] 08-04-2023 14:27-0500 Body height 165.1 cm Shahbaz Furlong DO Work Phone: [facility] 08-04-2023 14:27-0500 Body mass index (BMI) [Ratio] 40.25 kg/m2 Shahbaz Furlong DO Work Phone: [facility] 08-04-2023 14:27-0500 Body temperature 98.6 [degF] Shahbaz Sandhyalong DO Work Phone: [facility] 08-04-2023 14:27-0500 Body weight 109.72 kg Shahbaz Sandhyalong DO Work Phone: [facility] 08-04-2023 14:27-0500 Diastolic blood pressure 68 mm[Hg] Shahbaz Furlong DO Work Phone: [facility] 08-04-2023 14:27-0500 Heart rate 100 /min Shahbaz Sandhyalong DO Work Phone: [facility] 08-04-2023 14:27-0500 SaO2% (BldA) [Mass fraction] 97 % Shahbaz Arthurlong DO Work Phone: [facility] 08-04-2023 14:27-0500 Systolic blood pressure 110 mm[Hg] Shahbaz Furlong DO Work Phone: [facility] 06-21-2023 16:30-0500 Body height 165.1 cm Josie Grande APRN-AEROBICS TEACHER Work Phone: [facility] 06-21-2023 16:30-0500 Body mass index (BMI) [Ratio] 39.51 kg/m2 Josie Grande APRN-AEROBICS TEACHER Work Phone: [facility] 06-21-2023 16:30-0500 Body temperature 98.29 [degF] Josie Grande APRN-AEROBICS TEACHER Work Phone: [facility] 06-21-2023 16:30-0500 Body weight 107.68 kg Josie HANDAEROBICS TEACHER Work Phone: [facility] 06-21-2023 16:30-0500 Diastolic blood pressure 66 mm[Hg] Josie HANDAEROBICS TEACHER [facility] 06-21-2023 16:30-0500 Heart rate 98 /min Josie HANDAEROBICS TEACHER Work Phone: [facility] 06-21-2023 16:30-0500 SaO2% (BldA) [Mass fraction] 95 % Josie Grande APRN-AEROBICS TEACHER Work Phone: [facility] 06-21-2023 16:30-0500 Systolic blood pressure 102 mm[Hg] Josie HANDAEROBICS TEACHER 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 Phone: [facility] 06-16-2021 11:30-0500 Body height 167.64 cm Kendy Carey Other [facility] Other 06-16-2021 11:30-0500 Body mass index (BMI) [Ratio] 36.31 kg/m2 Kendy Patino Other [facility] Other 06-16-2021 11:30-0500 Body temperature 98.6 [degF] Kendy Carey Other [facility] Other 06-16-2021 11:30-0500 Body weight 102.06 kg Kendy Carey Other [facility] Other 06-16-2021 11:30-0500 Respiratory rate 20 /min Kendy Carey Other [facility] Other 06-16-2021 11:30-0500 SaO2% (BldA) [Mass fraction] 98 % Kendy Patino Other [facility] Other Encounters Encounter Date Encounter Type Care Provider Facility Start: 07-01-2025 ambulatory STEVEN PADILLA Facili ty:[facility] [place] Start: 06-24-2025 ambulatory STEVEN PADILLA Facili ty:[facility] [place] Start: 02-05-2025 End: 02-05-2025 [facility] Start: 01-28-2025 End: 01-28-2025 ambulatory Chrissy Conway MD Facility:[facility] Start: 01-14-2025 End: 01-14-2025 Office outpatient visit 25 minutes Shahbaz Mancini DO Work Phone: [facility] Comment on above: Class 2 severe obesi ty due to excess calories with serious comorbidity and body mass index (BMI) of 36.0 to 36.9 in adult ([facility]) (Primary Dx); Lumbar disc prolapse with compression radiculopathy; Sleep apnea, unspecified type Start: 01-14-2025 End: 01-14-2025 ambulatory [facility] Start: 12-24-2024 End: 12-24-2024 ambulatory [facility] Start: 12-24-2024 End: 12-24-2024 Office outpatient visit 25 minutes Shahbaz Molina Mancini DO Work Phone: [facility] Comment on above: Palpitations (Primar y Dx); PVC (premature ventricular contraction); Sinus tachycardia Start: 12-24-2024 End: 12-26-2024 Telephone encounter Kaila Beck [facility] - Family Medicine Start: 12-17-2024 End: 12-17-2024 ambulatory Chrissy Conway MD Facility:[facility] Start: 11-26-2024 End: 11-26-2024 ambulatory Chrissy Conway MD Facility: [place] Start: 11-12-2024 End: 11-12-2024 ambulatory Chrissy Conway MD Facility:[facility] Start: 11-06-2024 End: 11-06-2024 Refill [facility]baz [facility]ancini DO [facility] Start: 10-15-2024 End: 10-15-2024 ambulatory Chrissy Conway MD Facility: [place] Start: 10-04-2024 End: 10-04-2024 ambulatory Kiarra Min Facility:[facility] [place] Start: 09-17-2024 End: 09-17-2024 ambulatory Chrissy Conway MD Facility:[facility] Start: 09-13-2024 End: 09-13-2024 Office outpatient visit 25 minutes Shahbaz Mancini DO Work Phone: [facility] Comment on above: Lumbar disc prolapse with compression radiculopathy (Primary Dx); Class 2 severe obesity due to excess calories with serious comorbidity and body mass index (BMI) of 36.0 to 36.9 in adult ([facility]); Essential hypertension; Gastroesophageal reflux disease, unspecified whether esophagitis present Start: 09-13-2024 End: 09-13-2024 ambulatory SHAHBAZ MANCINI [facility] Start: 08-27-2024 End: 08-27-2024 Refill Jennyfer Mini PATIENT SAFETY MANAGER [facility] Start: 08-20-2024 End: 08-20-2024 ambulatory Chrissy Conway MD Facility: [place] Start: 08-11-2024 End: 08-11-2024 Orders Only Shahbaz Mancini DO [facility] Comment on above: Lumbar disc prolapse with compression radiculopathy (Primary Dx) Start: 08-08-2024 End: 08-08-2024 Refill Shahbaz Mancini DO Work Phone: [facility] Comment on above: Spondylolisthesis, l umbar region Start: 07-27-2024 End: 07-27-2024 Office outpatient visit 15 minutes Shahbaz Mancini DO Work Phone: [facility] Comment on above: Lumbar disc prolapse with compression radiculopathy (Primary Dx) Start: 07-27-2024 End: 07-27-2024 ambulatory [facility] Start: 06-26-2024 End: 06-27-2024 Telephone encounter Kaila Beck [facility] - [facility] Start: 05-31-2024 End: 05-31-[address] [facility] Start: 05-28-2024 End: 05-28-[address] [facility] Start: 05-28-2024 Encounter for genera l adult medical examination without abnormal findings [facility] Start: 05-28-2024 End: 05-28-2024 ambulatory [facility] Start: 05-28-2024 Encounter for genera l adult medical examination without abnormal findings [facility] Start: 05-24-2024 End: 05-24-2024 ambulatory Kiarra J Galea [facility] Start: 05-24-2024 End: 05-24-2024 Lab Drop off Kiarra J Galea [facility] Start: 05-24-2024 End: 05-24-2024 ambulatory Kiarra J Galea Facility:[facility] Start: 05-24-2024 End: 05-24-2024 Patient encounter procedure Kiarra J Galea [facility] Start: 04-29-2024 End: 04-29-2024 Refill [...] (BMI) of 36.0 to 36.9 in adult ([facility]); Essential hypertension; Other fatigue Start: 04-03-2024 End: 04-03-2024 ambulatory SHAHBAZRAJAT ARTHURERNESTINE [facility] Start: 03-01-2024 End: 03-01-2024 ambulatory Kiarra J Galea Facility:[facility] Start: 03-01-2024 End: 03-01-2024 Patient encounter procedure Kiarra J Galea [facility] Start: 02-23-2024 End: 02-23-2024 ambulatory Kiarra J Galea [facility] Start: 02-23-2024 End: 02-23-2024 Lab Drop off Kiarra J Galea [facility] Start: 02-23-2024 End: 02-23-2024 ambulatory Kiarra J Galea Facility:[facility] Start: 02-23-2024 End: 02-23-2024 Patient encounter procedure Kiarra J Galea [facility] Start: 02-16-2024 End: 02-17-2024 Refill Kaila Beck CMA [facility] Comment on above: Lumbar disc prolapse with compression radiculopathy Start: 02-09-2024 End: 02-09-2024 Refill Shahbaz G Furlong DO Work Phone: [facility] Comment on above: Spondylolisthesis, l umbar region Start: 01-25-2024 ambulatory Kiarra Min [facility] Start: 01-20-2024 End: 01-20-2024 Orders Only Itzel Aggarwal [facility] PLASTICS PROCESS HAND-SECOND FLOOR OPERATOR Work Phone: [facility] Comment on above: Right ureteral stone (Primary Dx) Start: 01-19-2024 End: 01-19-2024 Office outpatient visit 15 minutes Itzel Gibbs PLASTICS PROCESS HAND-SECOND FLOOR OPERATOR Work Phone: [facility] Comment on above: Right ureteral stone (Primary Dx); Fatty liver Start: 01-19-2024 End: 01-19-2024 ambulatory [facility] Start: 01-02-2024 End: 01-02-2024 Office outpatient visit 25 minutes Shahbaz Mancini DO Work Phone: [facility] Comment on above: Lumbar disc prolapse with compression radiculopathy (Primary Dx); Class 2 severe obesity due to excess calories with serious comorbidity and body mass index (BMI) of 39.0 to 39.9 in adult ([facility]); Lipoma, unspecified site Start: 11-08-2023 End: 11-10-2023 Telephone encounter Jennyfer Morse [facility] Comment on above: Med Refill Start: 10-30-2023 End: 10-30-2023 Refill Shahbaz Arthurnicolasng DO Work Phone: [facility] Comment on above: Essential (primary) hypertension; Urinary urgency Start: 10-10-2023 End: 10-10-2023 Office outpatient visit 15 minutes Josie Grande PLASTICS PROCESS HAND-AEROBICS TEACHER Work Phone: [facility] Comment on above: Morbid obesity ([facility]) (Primary Dx); Abdominal bloating Start: 09-12-2023 Orders Only Shahbaz quintero DO [facility] Phone: [facility] Start: 08-31-2023 Orders Only Josie Grande PLASTICS PROCESS HAND-AEROBICS TEACHER Work Phone: [facility] Comment on above: Hypomagnesemia (Prim yudy Dx) Start: 08-30-2023 End: 08-30-2023 ambulatory JOSIE GRANDE [facility] Start: 08-30-2023 End: 08-30-2023 Office outpatient visit 25 minutes Josie Grande PLASTICS PROCESS HAND-AEROBICS TEACHER [facility]: [facility] Comment on above: Acute kidney injury (nontraumatic) ([facility]) (Primary Dx); Hypomagnesemia; Essential hypertension; Morbid obesity ([facility]) Start: 08-13-2023 Refill Shahbaz quintero DO Work Phone: [facility] Comment on above: Essential (primary) hypertension Start: 08-12-2023 Refill Shahbaz quintero DO [facility] Comment on above: Urinary urgency Start: 08-04-2023 End: 08-04-2023 Office outpatient visit 25 minutes Shahbaz Mancini DO Work Phone: [facility] Comment on above: Morbid obesity ([facility]) (Primary Dx); Lumbar disc prolapse with compression radiculopathy; Left lateral epicondylitis; Essential hypertension; Spondylolisthesis, lumbar region; Pre-diabetes Start: 07-28-2023 Refill Shahbaz quintero DO Work Phone: [facility] Comment on above: Urinary urgency Start: 07-08-2023 Refill Kaila Beck [facility] - Family Medicine Comment on above: Essential (primary) hypertension Start: 07-04-2023 Telephone encounter Shahbaz menjivar DO [facility] Start: 06-21-2023 End: 06-21-2023 Office outpatient visit 15 minutes Josie Grande PLASTICS PROCESS HAND-AEROBICS TEACHER [facility] Comment on above: Lateral epicondyliti s of left elbow (Primary Dx) Start: 12-03-2021 End: 12-04-[address] SHAHBAZ MANCINI Facility:[facility] Start: 06-16-2021 End: 06-16-2021 ambulatory Kendy Patino Other [facility] Other Start: 06-16-2021 Office outpatient vi sit 15 minutes Kendy Patino [facility] Start: 05-21-2021 Encounter for preprocedural cardiovascular examination DR DOCTOR NGUYEN [facility] Start: 05-21-2021 Encounter for preprocedural laboratory examination DR DOCTOR NGUYEN [facility] Start: 05-15-2021 End: 05-16-[address] DOCTOR NGUYEN Facility:[facility] Start: 05-15-2021 End: 05-16-2021 Encounter for preprocedural laboratory examination DR DOCTOR NGUYEN Facility:[facility] Start: 02-19-2021 End: 02-19-[address] SHAHBAZ MANCINI Facility:[facility] Start: 11-23-2017 Ambulatory Christina Apodaca Fac ility:[facility] Start: 11-09-2017 Ambulatory Christina Apodaca Fac ility:[id number] Procedures Date Procedure Procedure Detail Performing Clinician Start: 01-14-2025 Adult depression scr eening assessment Shahbaz Arthurlong DO Work Phone: Start: 12-24-2024 Ecg routine ecg w/le ast 12 lds w/i&r Shahbaz Auguste Sandhyalong DO Work Phone: Start: 12-24-2024 Adult depression scr eening assessment Shahbaz Furlong DO Work Phone: Start: 09-13-2024 Follow-up visit Follow-up SHAHBAZ MANCINI Start: 09-13-2024 Adult depression scr eening assessment Shahbaz Furlong DO Work Phone: Start: 05-28-2024 Adult depression scr eening assessment Kaila Beck CMA Start: 04-03-2024 Adult depression scr eening assessment Shahbaz Furlong DO Work Phone: Start: 01-02-2024 Adult depression scr eening assessment Shahbaz Arthurlong DO Work Phone: Start: 10-10-2023 Adult depression scr eening assessment Josie Grande PLASTICS PROCESS HAND-AEROBICS TEACHER Work Phone: Start: 08-30-2023 Adult depression scr eening assessment Josie Grande PLASTICS PROCESS HAND-AEROBICS TEACHER Work Phone: Start: 08-04-2023 Adult depression scr eening assessment Shahbaz Furlong DO Work Phone: Start: 06-21-2023 Adult depression scr eening assessment Josie Grande PLASTICS PROCESS HAND-AEROBICS TEACHER Work Phone: Start: 11-25-2014 Total replacement of left hip joint Kiarra Min Plan of Treatment Date Care Activity Detail Author Start: 02-11-2030 DTaP,Tdap and Td Vac cines (3 - Td or Tdap) DTaP,Tdap and Td Vaccines (3 - Td or Tdap) [facility] Start: 01-14-2026 Adult BMI Screening Adult BMI Screen ing [facility] Start: 01-14-2026 Depression Screening Depression Scre ening [facility] Start: 01-14-2026 Tobacco Screening Tobacco Screening [facility] Start: 12-24-2025 Adult BMI Screening Adult BMI Screen ing [facility] Start: 12-24-2025 Depression Screening Depression Scre ening [facility] Start: 12-24-2025 Tobacco Screening Tobacco Screening [facility] Start: 09-13-2025 Adult BMI Screening Adult BMI Screen ing [facility] Start: 09-13-2025 Depression Screening Depression Scre ening [facility] Start: 09-13-2025 Tobacco Screening Tobacco Screening [facility] Start: 07-27-2025 Adult BMI Screening Adult BMI Screen ing [facility] Start: 07-27-2025 Tobacco Screening Tobacco Screening [facility] Start: 05-28-2025 Adult BMI Screening Adult BMI Screen ing [facility] Start: 05-28-2025 Depression Screening Depression Scre ening [facility] Start: 05-28-2025 Tobacco Screening Tobacco Screening [facility] Start: 05-21-2025 End: 05-21-2025 Patient encounter procedure 05/21/2025 4:15 PM EST [facility] [address] [place] [address] Shahbaz Mancini, DO [address], [place] [address] [facility] Start: 04-03-2025 Adult BMI Screening Adult BMI Screen ing [facility] Start: 04-03-2025 Depression Screening Depression Scre ening [facility] Start: 04-03-2025 Tobacco Screening Tobacco Screening [facility] Start: 02-11-2025 Influenza vaccination Influenza Vacc ine [facility] Start: 01-18-2025 Adult BMI Screening Adult BMI Screen ing [facility] Start: 01-18-2025 Tobacco Screening Tobacco Screening [facility] Start: 01-14-2025 End: 01-14-2025 Patient encounter procedure 01/14/2025 4:30 PM EDT [facility] [address] [place] [address] Shahbaz Mancini, DO [address], [place] [address] [facility] - [facility] Start: 01-01-2025 Adult BMI Screening Adult BMI Screen ing [facility] Start: 01-01-2025 Depression Screening Depression Scre ening [facility] Start: 01-01-2025 Tobacco Screening Tobacco Screening [facility] Start: 10-09-2024 Adult BMI Screening Adult BMI Screen ing [facility] Start: 10-09-2024 Depression Screening Depression Scre ening [facility] Start: 10-09-2024 Tobacco Screening Tobacco Screening [facility] Start: 09-13-2024 End: 09-13-2024 Patient encounter procedure 09/13/2024 4:15 PM EDT Office Visit [facility] - Family Medicine [address] [place] [address] Shahbaz Mancini, [address], [place] [address] [facility] Start: 08-29-2024 Adult BMI Screening Adult BMI Screen ing [facility] Start: 08-29-2024 Depression Screening Depression Scre ening [facility] Start: 08-29-2024 Tobacco Screening Tobacco Screening [facility] Start: 08-28-2024 End: 08-28-2024 Patient encounter procedure 08/28/2024 3:30 PM EDT Office Visit [facility] - Family Medicine [address] [place] [address] Shahbaz Mancini DO [address], [place] [address] [facility] - [facility] Start: 08-28-2024 Screening for malign ant neoplasm of colon Colon Cancer Screening 3 Year Cologuard [facility] Start: 08-04-2024 Adult BMI Screening Adult BMI Screen ing [facility] Start: 08-04-2024 Depression Screening Depression Scre ening [facility] Start: 08-04-2024 Tobacco Screening Tobacco Screening [facility] Start: 06-21-2024 Adult BMI Screening Adult BMI Screen ing [facility] Start: 06-21-2024 Depression Screening Depression Scre ening [facility] Start: 06-21-2024 Tobacco Screening Tobacco Screening [facility] Start: 05-28-2024 End: 05-28-2024 Patient encounter procedure 05/28/2024 2:30 PM EST Office Visit [facility] Internal Medicine - Family Medicine [address] [place] [address] Shahbaz Mancini DO [address], [place] [address] [facility] Medicine - Family Medicine Start: 04-03-2024 End: 04-03-2024 Patient encounter procedure 04/03/2024 4:30 PM EDT [facility] [address] [place] [address] Shahbaz Mancini DO [address], [place] [address] [facility] - Family [facility] Start: 02-12-2024 Influenza vaccination Influenza Vacc ine [facility] Start: 01-02-2024 End: 01-02-2024 Patient encounter procedure 01/02/2024 4:15 PM EDT Office Visit [facility] Internal Medicine - Family Medicine [address] [place] [address] Shahbaz Mancini DO [address], [place] [address] [facility] Internal [facility] Start: 11-03-2023 End: 11-03-2023 Patient encounter procedure 11/03/2023 4:10 PM EDT Office Visit [facility] Internal Medicine - Family Medicine [address] [place] [address] Shahbaz Mancini DO [address], [place] [address] [facility] - Family [facility] Start: 10-10-2023 End: 10-10-2023 Patient encounter procedure 10/10/2023 4:00 PM EDT Office Visit [facility] Internal Medicine - Family Medicine [address] [place] [address] Veronica Erin, PLASTICS PROCESS HAND-AEROBICS TEACHER [address] [place] [address] [facility] - Family [facility] Start: 09-11-2023 Influenza vaccination Influenza Vacc ine [facility] Comment on above: Postponed from 02/11 (Patient Refused) Start: 08-04-2023 End: 08-04-2023 Patient encounter procedure 08/04/2023 2:20 PM EST [facility] [address] [place] [address] Shahbaz Mancini DO [address] [place] [address] [facility] Start: 2023 Administration of varicella zoster vaccine Zoster (Shingles) Vaccine (1 of 2) [facility] Start: 02-11-2023 Influenza vaccination Influenza Vacc ine [facility] Start: 1991 Adult BMI Follow Up Plan Adult BMI Follow Up Plan [facility] Immunizations Immunization Date Immunization Notes Care Provider Fa cility 02-12-2020 diphtheria, tetanus toxoids and pertussis vaccine Josie Grande PLASTICS PROCESS HAND-AEROBICS TEACHER Work Phone: [facility] 02-12-2020 tetanus toxoid, redu jackson diphtheria toxoid, and acellular pertussis vaccine, adsorbed Josie Grande PLASTICS PROCESS HAND-AEROBICS TEACHER Work Phone: [facility] 02-03-2018 hepatitis B vaccine, adult dosage Josie Grande PLASTICS PROCESS HAND-AEROBICS TEACHER Work Phone: [facility] 09-07-2017 hepatitis B vaccine, adult dosage Josie Grande PLASTICS PROCESS HAND-AEROBICS TEACHER Work Phone: [facility] 08-04-2017 hepatitis B vaccine, pediatric or pediatric/adolescent dosage Josie Grande PLASTICS PROCESS HAND-AEROBICS TEACHER Work Phone: [facility] Payers Date Payer Category Payer Managed Care, Other (non HMO) [employer]-GENERIC PLAN [id number] 2023 Managed Care Other (unspecified) MFILR-KGP-USYMGOC PLAN [id number] 2023 Private Health Insurance [id number] 2023 Private Health Insurance [id number] 2023 Unknown [id number] 2012 Unknown [id number] [id number]. [id number] 1973 Unknown [id number] 2.16.840.1.547757.3.579. 2.593 1973 Unknown [id number] 2.16.840.1.795282.3.579. 2.593 1973 Unknown [id number] 2.16.840.1.550725.3.579. 2.593 1973 Unknown [id number] 2.16.840.1.077078.3.579. 2.727 1973 Unknown [id number] 2.16.840.1.202359.3.579. 2.727 1973 Unknown [id number] 2.16.840.1.831837.3.579. 2.727 1973 Unknown [id number] 2.16.840.1.618339.3.579. 2.1286 1973 Unknown [id number] 2.16.840.1.385699.3.579. 2.1286 1973 Unknown [id number] 2.16.840.1.777475.3.579. 2.1286 1973 Unknown [id number] 2.16.840.1.745980.3.579. 2.727 1973 Unknown [id number] 2.16.840.1.849312.3.579. 2.727 1973 Unknown [id number] 2.16.840.1.738645.3.579. 2.727 1973 Unknown [id number] 2.16.840.1.794911.3.579. 2.727 1973 Unknown [id number] 2.16.840.1.471579.3.579. 2.727 1973 Unknown [id number] 2.16.840.1.997742.3.579. 2.727 1973 Unknown [id number] 2.16.840.1.795771.3.579. 2.1286 1973 Unknown [id number] 2.16.840.1.029271.3.579. 2.1286 1973 Unknown [id number] 2.16.840.1.229911.3.579. 2.1286 1973 Unknown [id number] 2.16.840.1.276243.3.579. 2.1286 1973 Unknown [id number] 2.16.840.1.489464.3.579. 2.1286 1973 Unknown [id number] 2.16.840.1.548084.3.579. 2.1286 1973 Unknown [id number] 2.16.840.1.418112.3.579. 2.1286 1973 Unknown [id number] 2.16.840.1.681066.3.579. 2.196 1973 Unknown [id number] 2.16.840.1.876894.3.579. 2.196 1973 Unknown [id number] 2.16.840.1.566710.3.579. 2.196 1973 Unknown [id number] 2.16.840.1.242001.3.579. 2.196 1973 Unknown [id number] 2.16.840.1.589964.3.579. 2.196 1973 Unknown [id number] 2.16.840.1.483716.3.579. 2.196 1973 Unknown [id number] 2.16.840.1.661094.3.579. 2.196 1959 Unknown [id number] Self-pay Social History Date Type Detail Facility Start: 03-07-2023 End: 05-03-2023 Sex Assigned At [facility] Start: 03-01-2024 End: 05-24-2024 Tobacco smoking status Light tobacco smoker (finding) [facility] Start: 03-07-2023 End: 01-19-2024 Tobacco smoking status Ex-smoker (finding) [facility] Tobacco smoking status Never [facility] Start: 06-13-1989 End: 09-11-2022 History of tobacco use Current smoker [facility] Start: 06-13-1989 End: 09-11-2022 History of tobacco use Cigarette Smoker [facility] Start: 03-07-2023 End: 01-19-2024 Cigarettes smoked current (pack per day) - Reported 0.5 [facility] Start: 03-07-2023 End: 01-19-2024 Tobacco use and exposure Smokeless tobacco non-user [facility] Start: 05-28-2024 End: 01-14-2025 Alcoholic beverage intake Ex-drinker (finding) [facility] Has the [employer], or [employer] threatened to shut off services in your home in past 12Mo No [facility] Are you now , , , , never or living with a partner? [facility] How often to you hav e a drink containing alcohol? 2-4 times a month [facility] How many standard drinks containing alcohol do you have on a typical day? 1 or 2 [facility] How often do you hav e 6 or more drinks on 1 occasion? Never [facility] Do you feel stress - tense, restless, nervous, or anxious, or unable to sleep at night because your mind is troubled all the time - these days [OSQ] Not at all [facility] Start: 03-02-2022 Alcohol Comment Occasional 6 p ack once a month [facility] Start: 1975 Sex assigned at Not on file P [facility] Start: 01-16-2015 Sex Male (finding) [facility] Start: 06-21-2023 End: 08-04-2023 Alcohol intake Current drinker of alcohol (finding) [facility] Functional Status Date Assessment Result Facility 05-24-2024 Functional Status N/A [facility] 03-01-2024 Functional Status N/A [facility] 02-23-2024 Functional Status N/A [facility] Clinical Notes 02-19-2021 to 01-14-2025 Shahbaz Mancini, DO - 01/14/2025 4:30 PM EDTShahbaz Mancini, DO - 12/24/2024 4:55 PM EDTTelephone Encounter - Kaila Beck, PATIENT SAFETY MANAGER - 12/24/2024 4:33 PM EDT Note Date [...] (BMI) of 36.0 to 36.9 in adult ([facility]) He is obese. He continues to lose [...] in the morning. documented in this encounter [facility] 12-24-2024 History of Present illness Narrative Subjective [...] DAILY EVERY MORNING [facility]-24-[facility]24 Miscellaneous Notes Patient came in and [...] the left side. [facility]-24-2024 Telephone encounter Note Patient came in and was wondering if he can go back on his metoprolol because he feels like his heart is beating out of his chest. [facility] 12-24-2024 Telephone encounter Note Pt came in and I let him sit for 5 min and took his BP is 120/80, 97 O2 pulse 108--115 with continues monitoring. Pt feels like his heart is pumping harder on the left side. [facility] 10-04-2024 Note Patient Education Urology Benign [...] Follow these instructions at home: ??? Take gxak-zjy-qmcdzcl and prescription medicines only as told by [...] do not get (more content not included)... [facility] 09-13-2024 History of Present illness Narrative [...] Exam Vitals reviewed. Exam conducted with a barking machine feeder present (Darryl Ruiz MS 3). Constitutional: General: [...] adult (CMS-HCC) He is obese. He continues with a [...] consider an EGD. documented in this encounter [facility] 07-27-2024 History of Present illness Narrative Images [...] Exam Vitals reviewed. Exam conducted with a barking machine feeder present (Dat Amador MS3). Constitutional: General: He [...] the office today. documented [facility] 06-26-2024 Miscellaneous Notes Patient came in and was wondering if he can get a refill on the wegovy through [facility] and he would like it increased if he can. Okay. Forms filled out to be faxed in documented [facility] this [facility] 01-14-2025 Telephone encounter Note Patient came in and was wondering if he can get a refill on the wegovy through [facility] and he would like it increased if he can. [facility] 06-26-2024 Telephone encounter Note Okay. Forms filled out to be faxed in [facility] 05-24-2024 Hospital Discharge instructions Patient Education 05/24/2024 [...] treatment? Where to find more information [employer]: www.cancer.org [place] [employer]: www.auanet.org Contact a health care [...] provider. Document Revised: 11/23/2021 Document Reviewed: 11/23/2021 [employer] Patient Education 2023 [employer]. 05/24/2024 10:52:52 Prostate Cancer Screening Prostate Cancer [...] treatment? Where to find more information The [place] [employer]: www.cancer.org [place] [employer]: www.auanet.org Contact a health care [...] provider. Document Revised: 11/23/2021 Document Reviewed: 11/23/2021 [employer] Patient Education 2023 [employer] 05/24/2024 10:52:36 Benign Prostatic Hyperplasia Benign Prostatic [...] urethra. Follow these instructions at home: Take edzo-brl-yshjclh and prescription medicines only as told by [...] provider. Document Revised: 12/16/2021 Document Reviewed: 12/16/2021 [employer] Patient Education 2023 [employer]. [facility] 02/23/2024 10:39:28 With:Kiarra Christiansen, URL Address: When: Unknown Comments:F/U 3 months [facility] 05-24-2024 Note Patient Education Prostate Cancer Screening [...] Where to find more information ??? The [employer]: www.cancer.org ??? [place] [employer]: www.auanet.org Contact a health care [...] a sleep study done years ago at [facility] but it was okay. Part of [...] track down the sleep study done at [facility] to see if he has sleep [...] for muscle spasms. documented in this encounter [facility] 03-01-2024 Hospital Discharge instructions Patient Education 03/01/2024 [...] Follow these instructions at home: Medicines Take yxkk-cfk-zxntgbk and prescription medicines only as told by [...] or the blood stops without treatment. Take itkx-ttp-tzrlsbx and prescription medicines only as told by your health care provider. Drink enough fluid to keep your urine pale yellow. This information is not intended to replace advice given to you by your health care provider. Make sure you discuss any questions you have with your health care provider. Document Revised: 01/28/2021 Document Reviewed: 01/28/2021 [employer] Patient Education 2023 [employer]QUOUS. Follow Up Care 02/27/2024 10:53:51 With:Mechelle BARCENAS, Kiarra Gant, URL Address: When: Unknown Comments:Appointment has already been scheduled [facility] 03-01-2024 Note Patient Education Urology [...] these instructions at home: Medicines ? Take hgmo-cmr-kixmvbw and prescription medicines only as told by [...] the blood stops without treatment. ? Take vqax-oiq-svrrowh and prescription medicines only as told by your health care provider. ? Drink enough fluid to keep your urine pale yellow. This information is not intended to replace advice given to you by your health care provider. Make sure you discuss any questions you have with your health care provider. Document Revised: 01/28/2021 Document Reviewed: 01/28/2021 [employer] Patient Education ? 2023 [employer]. [facility] 02-23-2024 Hospital [...] urethra. Follow these instructions at home: Take rrcv-wqw-sbsdsvv and prescription medicines only as told by [...] provider. Document Revised: 12/16/2021 Document Reviewed: 12/16/2021 [employer] Patient Education 2023 [employer]. 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 was taking flomax, [...] Skin: No rashes or suspicious lesions Assessment/Plan TMH TEACHER referred by Itzel Gibbs NP for ureteral stone. 01/08/24 - BUN 27, Cre 1.95, GFR 44 (pt had hydro due to ureteral stone at this time), no repeat labs in [facility] 1. History of kidney stones (Z87.442: Personal history of urinary calculi) 01/08/[address] [facility] ER CT w/o con - mild R hydronephrosis due to a 5mm proximal R ureteral stone near the UPJ. No additional upper or lower urinary tract calculi are seen on either side. There are no other acute findings in the abdomen or pelvis 02/16/24 [facility] - no appreciable urinary tract calculi Pt went to [facility] ER on 01/08/24 due to pain. Pt [...] Mt. Dew. Discussed increasing fluids and adding lemon/[place] pleasant point to patient's regimen, pt verbalizes understanding. Briefly discussed metabolic workup with patient should he develop another stone. -Increase fluids, avoid bladder irritants -Add lemon/[place]qu[place]dy pleasant point, lemonade to fluid intake -Call our office for any stone symptoms -F/U 1 year with KUB/KECIA Ordered: E&M of New Patient High 60-74 Min 86209 2. BPH with obstruction/lower urinary tract symptoms [...] Daily, # 30 cap(s), Refills(s) 11, Pharmacy: [id number], 168, cm, 02/23/24 10:12:00 EDT, Height/Length Dosing, 102, kg, 02/23/24 10:12:00 EDT, Weight Dosing E&M of New Patient High 60-74 Min 76634 3. Screening PSA (prostate specific antigen) (Z12.5: [...] E&M of New Patient High 60-74 Min 08001 PSA Total 4. Asymptomatic microscopic hematuria (R31.21: [...] Follow these instructions at home: ? Take oyok-tcq-xolpquy and prescription medicines only as told by [...] of Present illness Narrative [address] [place] [id number] Patient: Jorgito Jovel Date of : 1975 [...] He has gotten a surgery consultation through [facility] in the past and decided not to [...] this visit: Right ureteral stone - Cancel: [facility] - [place], [place]; Future Fatty liver Follow-up: Patient was set up with [facility] but unfortunately they did not [...] for routine visit. ZOEY THOMAS APRN-CNP 01/23/24 1129 documented in this encounter [facility] 01-02-2024 History of Present illness Narrative Subjective [...] Cervical back: Neck supple. Skin: Findings: Lesion ([place], soft, freely movable mass along left anterior [...] (BMI) of 39.0 to 39.9 in adult ([facility]) He continues with weight loss with Wegovy. [...] see a surgeon. documented in this encounter [facility] 11-08-2023 Miscellaneous Notes Pt called stated he neds a refill of his wagovy . Not sure what dose he needs , some other screen comes up when I tried to send you a reorder [facility] documented in this encounter [facility] 11-08-2023 Telephone encounter Note Pt called stated he neds a refill of his wagovy . Not sure what dose he needs , some other screen comes up when I tried to send you a reorder [facility] 11-08-2023 Telephone encounter Note Form printed out to faxed to [facility] 10-10-2023 History of Present illness Narrative Subjective [...] [facility] 10/10/23 1839 documented in this encounter [facility] 09-12-2023 History of Present illness Narrative Semaglutide 0.6 mg once a week sent in to [facility] documented in this encounter [facility] 08-30-2023 History of Present illness Narrative Subjective [...] for this visit: Acute kidney injury (nontraumatic) ([facility]) - Comprehensive metabolic panel; Future Hypomagnesemia - Magnesium; Future Essential hypertension Morbid obesity ([facility]) He looks good today and [...] [facility] 08/30/23 1710 [facility] 08-13-2023 Miscellaneous Notes I called pt and he is taking it.He has a 90 supply everything good he is receiving it through [facility] documented in this encounter [facility] 08-13-2023 Telephone encounter Note I called pt and he is taking it.He has a 90 supply everything good he is receiving it through [facility] 08-04-2023 History of Present illness Narrative Subjective [...] would like a refill. 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 I have gotten multiple request to refill this medication. Call patient and find out what is going on [facility] 07-08-2023 Telephone encounter Note It will be covered if it goes to this pharmacy [facility] 07-08-2023 Telephone encounter Note That pharmacy does not accept e-prescriptions per Epic. [facility] Miscellaneous Notes [facility] rep called requesting an Ed[facility] med refill however I dont see it as a listed med. Please advise. It was not going to be covered so I changed it to something else per patient's request. [facility] Telephone encounter Note [facility] rep called requesting an Edarbi med refill however I dont see it as a listed med. Please advise. [facility] Telephone encounter Note It was not going to be covered so I changed it to something else per patient's request. 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 [facility] Other 09-09-2021 NotePROCEDURE: XR KNEE RT 4V [...] Electronically authenticated by: SALINA AGUILERA Date: 2021-02-19 [facility] Future Appointments Appointment Date:05/24/2024 09:00:00 AM Scheduled Provider:Kiarra Christiansen Location:[facility] Appointment Type:URO Office Visit Diagnostic Tests Pending * Creatinine 03/01/24 [facility] evaluation + Plan note Future Appointments Appointment Date:05/24/2024 09:00:00 AM Scheduled Provider:Kiarra Christiansen Location:[facility] Appointment Type:URO Office Visit Diagnostic Tests Pending * Urine Culture 02/23/24 [facility] Evaluation + Plan note Future Appointments Appointment Date:05/24/2024 09:00:00 AM Scheduled Provider:Kiarra Christiansen Location:[facility] Appointment Type:URO Office Visit Diagnostic Tests Pending * PSA Total 02/23/24 [facility] evaluation note* Diagnosis Morbid obesity ([facility])- Primary Morbid obesity Abdominal bloating Flatulence, eructation, and gas pain [facility] Diagnosis Lateral epicondylitis of left elbow- Primary [facility] Diagnosis Lumbar disc prolapse with compression radiculopathy- Primary Displacement of lumbar intervertebral disc without myelopathy [facility] Diagnosis Essential (primary) hypertension Unspecified essential hypertension Urinary urgency Urgency of urination [facility] Diagnosis Essential (primary) hypertension Unspecified essential hypertension [facility] Diagnosis Urinary urgency Urgency of urination documented in this encounter [facility]* Diagnosis Morbid obesity (CMS-HCC)- Primary Morbid obesity Lumbar disc prolapse with compression radiculopathy Displacement of lumbar intervertebral disc without myelopathy Left lateral epicondylitis Essential hypertension Unspecified essential hypertension Spondylolisthesis, lumbar region Pre-diabetes Other abnormal glucose [facility] Diagnosis Urinary urgency Urgency of urination [facility] Diagnosis Essential (primary) hypertension Unspecified essential hypertension documented in this encounter [facility]* Diagnosis Lumbar disc prolapse with compression radiculopathy- Primary Displacement of lumbar intervertebral disc without myelopathy Class 2 severe obesity due to excess calories with serious comorbidity and body mass index (BMI) of 39.0 to 39.9 in adult ([facility] Lipoma, unspecified site documented in this encounter [facility]* Diagnosis Acute kidney injury (nontraumatic) ([facility] Primary Acute kidney failure, unspecified Hypomagnesemia Disorders of magnesium metabolism Essential hypertension Unspecified essential hypertension Morbid obesity ([facility]) Morbid obesity documented in this encounter [facility]* Diagnosis Hypomagnesemia- Primary Disorders of magnesium metabolism documented in this encounter [facility]* Diagnosis Right ureteral stone- Primary documented in this encounter [facility]* Diagnosis Right ureteral stone- Primary Fatty liver Other chronic nonalcoholic liver disease documented in this encounter [facility]* Diagnosis Spondylolisthesis, lumbar region documented in this encounter [facility]* Diagnosis Lumbar disc prolapse with compression radiculopathy Displacement of lumbar intervertebral disc without myelopathy documented in this encounter [facility]* Diagnosis Lumbar disc prolapse with compression radiculopathy- Primary Displacement of lumbar intervertebral disc without myelopathy Class 2 severe obesity due to excess calories with serious comorbidity and body mass index (BMI) of 36.0 to 36.9 in adult ([facility] Essential hypertension Unspecified essential hypertension Other fatigue documented in this encounter [facility]* Diagnosis Urinary urgency Urgency of urination documented in this encounter [facility]* Diagnosis Spondylolisthesis, lumbar region documented in this encounter [facility]* Diagnosis Lumbar disc prolapse with compression radiculopathy- Primary Displacement of lumbar intervertebral disc without myelopathy documented in this encounter [facility]* Diagnosis Lumbar disc prolapse with compression radiculopathy- Primary Displacement of lumbar intervertebral disc without myelopathy Class 2 severe obesity due to excess calories with serious comorbidity and body mass index (BMI) of 36.0 to 36.9 in adult ([facility] Essential hypertension Unspecified essential hypertension Gastroesophageal reflux disease, unspecified whether esophagitis present documented [facility] Diagnosis Palpitations- Primary PVC (premature ventricular contraction) Other premature beats Sinus tachycardia Other specified cardiac dysrhythmias documented [facility] Diagnosis Class 2 severe obesity due to excess calories with serious comorbidity and body mass index (BMI) of 36.0 to 36.9 in adult ([facility] Primary Lumbar disc prolapse with compression radiculopathy Displacement of lumbar intervertebral disc without myelopathy Sleep apnea, unspecified type documented in this encounter [facility] [...] total hip replacement, left Hospitalization History surgeries [facility] Other Hospital course Narrative No data available for this section [facility] Hospital Discharge instructions No data available for this section [facility] InstructionsNot on filedocumented in this [...] Care Everywhere. * Kidney stones in adults ([place]) [facility] documented in this [facility] System[facility]ructionsNot on file documented in this encounterPro[facility]ica Health SystemInstructionsNot on file documented in this encounterProMedica Health SystemInstructionsNot on file documented in this [facility] System[facility] note No data available for this section [facility] reason for referral (narrative)* Consultation (Routine) - Pending Review Specialty Diagnoses / Procedures Referred By Cassandra hdez Referred To Contact Urology Diagnoses Right ureteral stone Itzel Gibbs APRN-SECOND FLOOR OPERATOR [address] [place] [address] Juancho Nunn MD [address] [place] [address] Referral ID Status Reason Start Date Expiration Date Visits Requested Visits Authorized [id number] Pending Review Specialty Services Required 01/20/2024 01/19/2025 1 1 [facility] Summary Purpose Family History No [...] section and content) DATE CREATED AUTHOR 11/29/2017 [employer] DATE CREATED AUTHOR AUTHOR'S ORGANIZ ATION 12/02/2017 [facility] DATE CREATED AUTHOR AUTHOR'S ORGANIZ ATION 06/02/2021 [facility] DATE CREATED AUTHOR AUTHOR'S ORGANIZ ATION 12/09/2021 [facility] DATE CREATED AUTHOR AUTHOR'S ORGANIZ ATION 02/26/2024 Sidhu Horry [facility] DATE CREATED AUTHOR AUTHOR'S ORGANIZ ATION 02/27/2024 Sidhu Horry [facility] DATE CREATED AUTHOR AUTHOR'S ORGANIZ ATION 05/27/2024 Sidhu Horry [facility] DATE CREATED AUTHOR AUTHOR'S ORGANIZ ATION 06/04/2024 [facility] DATE CREATED AUTHOR AUTHOR'S ORGANIZ ATION 08/10/2024 Sidhu Ernie [facility] DATE CREATED AUTHOR AUTHOR'S ORGANIZ ATION 10/05/2024 Sidhu Ernie [facility] DATE CREATED AUTHOR AUTHOR'S ORGANIZ ATION 01/17/2025 [facility] DATE CREATED AUTHOR AUTHOR'S ORGANIZ ATION 02/03/2025 [facility] REASON FOR VISIT (unrecogniz ed section and content) Reason Comments Follow-up Reason Comments elbow, arm wrist pain w/ lump on wrist Reason Comments Back Pain Reason Comments Med Refill Reason Onset Date Comments Med Refill 11/08/2023 Reason Comments Weight Loss Reason Comments Follow-up From ER visit 3 days at [facility] Reason Comments Er Follow-up Still having sorenes s in back Reason Onset Date Comments Med Refill 02/16/2024 Reason Comments controlled Reason Onset Date Comments Med Refill 08/27/2024 Reason Comments Follow-up Pain meds Weight Check Reason Comments Irregular Heart Beat Reason Comments recheck Reason Comments Med Change Request Patient Care team informatio n (unrecognized section and content) Circuit Court Magistrate Relationship Specialty Start Date End Date Shahbaz Mancini DO [address], [place] [address] PCP - General Family Medicine 02/11/[address] Relationship Specialty Start Date End Date Shahbaz Mancini DO [address], [place] [address] PCP - General Family Medicine 02/11/[address] Relationship Specialty Start Date End Date Shahbaz Mancini DO [address] [place] [address] PCP - General Family Medicine 02/11/[address] Relationship Specialty Start Date End Date SandhyanicolasShahbaz quintero DO [address] [place] [address] PCP - General Family Medicine 02/11/[address] Relationship Specialty Start Date End Date SandhyanicolasShahbaz quintero DO [address] [place] [address] PCP - General Family Medicine 02/11/[address] Relationship Specialty Start Date End Date SandhyanicolasShahbaz quintero DO [address] [place] [address] PCP - General Family Medicine 02/11/[address] Relationship Specialty Start Date End Date Shahbaz Mancini DO [address] [place] [address] PCP - General Family Medicine 02/11/[address] Relationship Specialty Start Date End Date Shahbaz Mancini DO [address] [place] [address] PCP - General Family Medicine 02/11/[address] Relationship Specialty Start Date End Date SandhyanicolasShahbaz quintero DO [address] [place] [address] PCP - [facility] 02/11/[address] Relationship Specialty Start Date End Date Shahbaz Mancini DO [address], [place] [address] PCP - [facility] 02/11/[address] Relationship Specialty Start Date End Date Shahbaz Mancini DO [address], [place] [address] PCP - [facility] 02/11/[address] Relationship Specialty Start Date End Date Shahbaz Mancini DO [address], [place] [address] PCP - [facility] 02/11/[address] Relationship Specialty Start Date End Date Shahbaz Mancini DO [address], [place] [address] PCP - [facility] 02/11/22 FOR RECORDS PERTAINING TO PATIENTS [...] BE BASED ON THE PRIMARY CLINICAL RECORDS. [facility]. provides no warranty or guarantee of the accuracy or completeness of information in this document.
--- NOTE | 2025-02-07 14:06 | PM.CN ---
Consult Note: HPI Data of Consult Patient: known to practice within the last 3 years Requesting Physician: Evelyn Landa NP Primary Care Provider: OSMAR MANCINI Consult Narrative Reason for consult: low back pain Narrative: 49yom who presents for evaluation. longstanding low back pain. previously underwent injection therapies. uses pain meds as needed, with limited benefit. has engaged in >6 weeks of provider directed home exercises, without benefit. denies adverse med side effects. recently underwent lumbar MRI which is consistent with multilevel disc bulge and spondylotic changes. historically has found significant short term relief from left SIJ injection, moderate relief from left L4-5 L5-S1 TFESI, no relief from bilateral L4-5 L5-S1 facet RFA despite significant relief with MBBs, and no relief from recent bilateral L5-S1 TFESI per pt. pain today 7/10 burning throbbing in left low back radiating into left thigh. also noting left knee pain without cause/injury. cc:: CC: Evelyn Landa NP Review of Systems ROS Musculoskeletal Reports: back pain, extremity pain and joint pain PFSH PFSH Medical History GERD (gastroesophageal reflux disease) ?K21.9 - Gastro-esophageal reflux disease without esophagitis (ICD-10) OAB (overactive bladder) ?N32.81 - Overactive bladder (ICD-10) Hyperlipidemia ?E78.5 - Hyperlipidemia, unspecified (ICD-10) Prediabetes ?R73.03 - Prediabetes (ICD-10) HTN (hypertension) ?I10 - Essential (primary) hypertension (ICD-10) Cholelithiasis ?K80.20 - Calculus of gallbladder without cholecystitis without obstruction (ICD-10) Degenerative disc disease, lumbar ?M51.36 - Other intervertebral disc degeneration, lumbar region (ICD-10) Surgical History History of hip replacement ?Z96.649 - Presence of unspecified artificial hip joint (ICD-10) Family History Father Family history of CHF (congestive heart failure) Family history of COPD (chronic obstructive pulmonary disease) Family history of hypertension Family history of stroke Grandfather Family history of cancer Family history of hypertension Grandfather Family history of cancer Brother Family history of diabetes mellitus Family history of hypertension Social History Within the past year, how often did you have a drink containing alcohol: 2-4 times a month Within the past year, how many standard drinks containing alcohol did you have on a typical day: 1 or 2 Within the past year, how often did you have six or more drinks on one occasion: never Total score: 0 Score interpretation: A score less than 4 is consistent with normal alcohol consumption. Smoking status: Current every day smoker Do you use any of these nicotine containing products: vaping products Non-prescribed substance use: denies use Previous occupational history: [employer] Highest level of school completed/degree received: Associate degree: occupational, technical, vocational program Little interest or pleasure in doing things: not at all Feeling down, depressed, or hopeless: not at all Feel stressed/tense/nervous/anxious/difficulty sleeping: not at all Meds Home Medications and Allergies Home Medications ?Medication ?Instructions ?Recorded ?Confirmed ?Type atorvastatin 20 mg tablet 20 mg PO DAILY 08/22/23 01/28/25 History fenofibrate 160 mg tablet 160 mg PO DAILY 08/22/23 01/28/25 History metoprolol succinate 50 mg 50 mg PO DAILY 08/22/23 12/17/24 History tablet,extended release 24 hr Held on 08/24/23. Instructions: Until follow up with PCP to discuss omeprazole 20 mg capsule,delayed 20 mg PO DAILY 08/22/23 01/28/25 History release oxybutynin chloride 5 mg tablet 5 mg PO DAILY 08/22/23 01/28/25 History magnesium oxide 400 mg (241.3 mg 400 mg PO DAILY 08/20/24 01/28/25 History magnesium) tablet semaglutide 2 mg/dose (8 mg/3 mL) 2 mg subcut QWEEK 08/20/24 01/28/25 History subcutaneous pen injector tamsulosin 0.4 mg capsule 0.4 mg PO Q24H 08/20/24 01/28/25 History meloxicam 7.5 mg tablet 7.5 mg 09/17/24 History hydrocodone 5 mg-acetaminophen 325 1 tab PO DAILY PRN pain #30 tabs 11/30/24 01/28/25 Rx mg tablet Allergies Allergy/AdvReac Type Severity Reaction Status Date / Time No Known Drug Allergies Allergy Verified 01/28/25 10:59 Exam Constitutional Documenting provider has reviewed patient's vital signs: yes Common normals: no apparent distress, oriented x3, healthy appearing, alert and well nourished General appearance: cooperative HENMT Common normals: normocephalic, hearing grossly normal bilaterally and moist oral mucous membranes Head and scalp: normocephalic Eye Common normals: PERRL Pupil: PERRL Neck & C-Spine Common normals: full ROM General: normal visual inspection Chest Common normals: inspection of chest normal Respiratory Common normals: normal respiratory effort, no retractions and no use of accessory muscles Back & Pelvis Lumbar spine/lower back: pain with ROM and lumbar spinal tenderness Lumbar spinal tenderness location: L3, L4 and L5; straight leg raise negative right and straight leg raise negative left Sacroiliac joints: SI joint(s) abnormal Other: left SIJ positive elizabeth(patricks), gaenslens, thigh thrust, compression test strength 5/5 in BLE Extremity Right lower extremity: knee joint Other: mild edema to left knee, no significant crepitus, tenderness noted to inferior medial portion without redness or warmth to touch. no instability noted. Neuro Common normals: oriented x3 Sensorium/orientation: alert Psych Common normals: mental status grossly normal, thought process normal, cooperative, affect normal, speech normal and activity/motor behavior normal Speech: normal speech Thought process: normal thought process Results Imaging lumbar MRI : Attestation: I have reviewed the pertinent imaging results. Radiologist's impression: Vertebral body heights appear maintained. No bone marrow edema. Spinal cord terminates in normal position without abnormal cord signal. No paraspinal mass. Visualized retroperitoneum demonstrates no acute process. At L1-L2: Diffuse broad-based disc bulge with mild facet joint degenerative changes. Mild canal and bilateral neural foraminal stenosis. At L2-L3: Diffuse broad-based disc bulge is present with facet joint degenerative changes causing mild canal and bilateral neural foraminal stenosis. At L3-L4: No significant posterior disc pathology. Mild facet joint degenerative changes. No significant canal stenosis. Mild bilateral neural foraminal stenosis. At L4-L5: Mild diffuse broad-based disc bulge is present with facet joint degenerative changes causing mild canal and moderate bilateral foraminal stenosis. At L5-S1: Central protrusion type disc herniation is present. Facet joint degenerative change. Findings are causing mild canal and moderate bilateral foraminal stenosis. Additional Findings Additional findings: If on a controlled substance or opioids, I have checked an [place] report on this patient and there are no aberrancies noted in the prescribing history.??If on a controlled substance or opioid a drug screen was completed and reviewed within the last year, and if there has not been a drug screen completed we ordered one today to monitor higher risk, state monitored pain medication use. As part of providing excellent, safe, comprehensive care, the following was completed at our patient's visit: 1. A medication reconciliation and review to ensure accurate knowledge of current/active medications, including asking our patients to inform us about any [id number] medications or herbal remedies/nutritional supplements/alternative remedies. 2. A review to specifically ensure our patients have had annual screening for screening for depression, screening for tobacco use, and screening for unhealthy alcohol use. For concerning screenings had a discussion with the patient, provided patient education, and recommended follow-up with primary care provider when appropriate. If patient noted with a risk of falling, they received education on strength, gait, and balance training to prevent future risk of falling. Portions of this note may have been carried over from the previous visit and updated as appropriate. Please note this office utilizes paper charting in addition to the electronic medical record. A list of current medications, vitals, and PMH is available there as the clinical staff outside of myself do not have access to [facility] charting during the clinic day operations. As part of providing quality comprehensive care the current medications, vitals, and PMH were reviewed in the paper chart. Assessment and Plan Assessment and Plan (1) Lumbar stenosis with neurogenic claudication: Assessment and Plan: The patient has had over 3 months of moderate to severe low back pain with functional impairment and inadequate response to conservative care including NSAIDS (unless there are contraindication such as concurrent blood thinners), multiple oral or topical pain medications, and home exercise program/physical therapy.? Patient has completed >6 weeks of guided home exercise program and/or formal physical therapy program without relief of their symptoms.? The Oswestry Disability Index was completed, and the patient scored a 40%.? The patient noted the following:?? moderate to severe pain with ADLs, lifting, twisting, social life, travel (2) Lumbar spondylosis: (3) Chronic use of opiate drug for therapeutic purpose: (4) Left knee pain: Plan refer to Neurosurgery at [facility] Dr Pereira per pt request, previously deemed non-surgical by Dr Joseph in the past. recent mri of lumbar spine noted above update left knee xray, PT for left knee pain. suspect lateral meniscus sprain/injury and OA continue current medications continue stretching as tolerated f/u if left knee pain persists after PT, or 3 months for medication management
== END 2025-02-07 13:39 | disposition home or self-care (01) ==
LOC: PM 13:38
PROVIDERS: PCP Family Medicine; Visit Provider Nurse Practitioner
DX: M48.062 Spinal stenosis, lumbar region with neurogenic claudication (principal); M47.816 Spondylosis without myelopathy or radiculopathy, lumbar region; M25.562 Pain in left knee; Z79.891 Long term (current) use of opiate analgesic
CPT/HCPCS: G0463

== ENCOUNTER 2025-02-07 14:27 | Outpatient (OUT) | payer OTHER, SELFPAY ==
--- OUTSIDE RECORDS SUMMARY | 2025-02-07 14:31 | XMS_ITS | Encounter Summary ---
Author Organization [employer] tem Address [facility]-[id number] [address] [place] [address] Care Team Providers Care Metal Burnisher Name Role Phone NatyShahbaz quintero Primary Care Provider + [phone] Encounter Details Date Type Department Care Team (Late st Contact Info) Description 12/24/2024 Telephone [facility] - Family Medicine [address] [place] [address] Kym Parks CMA Social History Tobacco Use Types Packs/Day Years Used Date Smoking Tobacco: Former Cigarettes 0.5 33.2 1 990 - 09/11/2022 Smokeless Tobacco: Never Alcohol Use Standard Drinks/Week Comments Not Currently 0 (1 standard drink = 0.6 oz pure alcohol) Occasional 6 pack once a month [facility] [employer] Answer Date Recorded In the past 12 [...] often do you attend chur ch or taoism services? Never 03/07/2023 Do you belong to any clubs o r organizations such as temple groups, unions, fraternal or athletic groups, or [...] Answer Date Recorded Total Score 0 12/24/2024 [facility] of Occupat ional Health - [...] Recorded Do you need help finding a [facility] and/or a training [...] - Family Medicine [address] [place] [address] Shahbaz Monk DO [address], [place] [address] documented as of this encounter Visit Diagnoses Not on filedocumented in this encounter Additional Health Concerns Assessment Noted Time PHQ-9 Depression Total Score: 0 12/25/19 25 4:58 PM EDT documented as of this encounter Care Teams Metal Burnisher Relationship Specialty Start Date End Date Shahbaz Monk DO [address] [address] PCP - General Family Medicine 02/11/22 documented as of this encounter
--- OUTSIDE RECORDS SUMMARY | 2025-02-07 14:31 | XMS_ITS | Encounter Summary ---
Author Organization [facility] tem Address [facility][id number] [address] [place] [address] Care Team Providers Care Checker Loader Name Role Phone Shahbaz Monk DO Primary Care Provider + [phone] Encounter Details Date Type Department Care Team (Late st Contact Info) Description 08/09/2024 Orders Only [facility] Internal Medicine - Family Medicine [address] [place] [address] Shahbaz Monk DO [address], [facility] [place] [address] Social History Tobacco Use Types Packs/Day Years Used Date Smoking Tobacco: Former Cigarettes 0.5 33.2 1 990 - 09/11/2022 Smokeless Tobacco: Never Alcohol Use Standard Drinks/Week Comments Not Currently 0 (1 standard drink = 0.6 oz pure alcohol) Occasional 6 pack once a month [facility] Utilities Answer Date Recorded In the past 12 months has [employer] [employer], or water [employer] threatened to shut off services in your [...] often do you attend chur ch or rastafarian services? Never 03/07/2023 Do you belong to [...] Answer Date Recorded Total Score 0 05/28/2024 [facility] of Occupat ional [...] Recorded Do you need help finding a [facility] career center and/or a training program? [...] - Family Medicine [address] [place] [address] Shahbaz Monk DO [address] [place] [address] documented as of this encounter Visit Diagnoses Not on filedocumented in this encounter Additional Health Concerns Assessment Noted Time PHQ-9 Depression Total Score: 0 05/28/20 24 2:30 PM EST documented as of this encounter Care Teams Checker Loader Relationship Specialty Start Date End Date Shahbaz Monk DO [address] [place] [address] PCP - General Family Medicine 02/11/22 documented as of this encounter
--- OUTSIDE RECORDS SUMMARY | 2025-02-07 14:31 | XMS_ITS | Encounter Summary ---
Author Organization [employer] [facility] s tem Address [id number] [address] [place] [address] Care Team Providers Care Carbon Paper Coating Machine Setter Name Role Phone Shahbaz Monk DO Primary Care Provider + [phone] Reason for Visit * Reason Onset Date Comments Med Refill 06/22/2022 Encounter Details Date Type Department Care Team (Late Contact Info) Description 06/22/2022 Refill [facility] Internal Medicine - Family Medicine [address] [place] [address] Kath Irvin CMA Degeneration of lumbar intervertebral [...] Upcoming Encounters Date Type Department Care Team ([facility] Contact Info) Description 05/21/2025 4:15 PM EST Office Visit [facility] - Family Medicine [address] [place] [address] Shahbaz Monk DO [address] [place] [address] documented as of this encounter Visit Diagnoses Diagnosis Degeneration of lumbar intervertebral disc Degeneration of lumbar or lumbosacral intervertebral disc documented in this encounter Additional Health Concerns Assessment Noted Time PHQ-9 Depression Total Score: 2 05/03/20 22 3:45 PM EST documented as of this encounter Care Teams Carbon Paper Coating Machine Setter Relationship Specialty Start Date End Date Shahbaz Monk DO [address], [facility] [place] [address] PCP - General Family Medicine 02/11/22 documented as of this encounter
--- OUTSIDE RECORDS SUMMARY | 2025-02-07 14:31 | XMS_ITS | Encounter Summary ---
Author Organization [facility] [employer] Sys tem Address [facility]-[id number] [address] [place] [address] Care Team Providers Care Computer Tester Name Role Phone Shahbaz Monk Primary Care Provider + [phone] Encounter Details Date Type Department Care Team (Late st Contact Info) Description 08/23/2023 Orders Only [facility] - Family Medicine [address] [place] [address] External, Scanning Provider Social History Tobacco Use Types Packs/Day Years Used Date Smoking Tobacco: Former Cigarettes 0.5 33.2 1 990 - 09/11/2022 Smokeless Tobacco: Never Alcohol Use Standard Drinks/Week Comments Yes 0 (1 standard drink = 0.6 oz pur e alcohol) Occasional 6 pack once a month [facility] Utilities Answer Date Recorded In the [...] Answer Date Recorded Total Score 0 08/04/2023 [facility] of Occupat ional Health - [...] Recorded Do you need help finding a [facility] career [facility] and/or a training [...] - Family Medicine [address] [place] [address] Shahbaz Monk DO [address], [place] [address] documented as of this encounter Procedures Procedure [...] documented as of this encounter Care Teams Computer Tester Relationship Specialty Start Date End Date Shahbaz Monk DO [address] [facility], [place] [address] PCP - General Family Medicine 02/11/22 documented as of this encounter
--- OUTSIDE RECORDS SUMMARY | 2025-02-07 14:31 | XMS_ITS | Encounter Summary ---
Author Organization [facility] [employer] tem Address [id number] [address] [place] [address] Care Team Providers Care Asp Web Developer Name Role Phone Shahbaz Monk Primary Care Provider + [phone] Encounter Details Date Type Department Care Team (Late st Contact Info) Description 08/31/2024 Orders Only [facility] - Family Medicine [address] [place] [address] Ref Prov, [place] [address] Social History Tobacco Use Types Packs/Day Years Used Date Smoking Tobacco: Former Cigarettes 0.5 33.2 1 990 - 09/11/2022 Smokeless Tobacco: Never Alcohol Use Standard Drinks/Week Comments Not Currently 0 (1 standard drink = 0.6 oz pure alcohol) Occasional 6 pack once a month [facility] Utilities Answer Date Recorded In the past 12 months has [facility] electric, gas, oil, or water [...] any clubs o r organizations such as quaker groups, unions, fraternal or athletic groups, or [...] Date Recorded Total Score 0 05/28/2024 [facility] of Occupat ional Health - [...] - Family Medicine [address] [place] [address] Shahbaz Monk DO [address] [facility] [place] [address] documented as of this encounter Procedures Procedure [...] documented as of this encounter Care Teams Asp Web Developer Relationship Specialty Start Date End Date Shahbaz Monk DO [address] [facility] [address] PCP - General Family Medicine 02/11/22 documented as of this encounter
--- OUTSIDE RECORDS SUMMARY | 2025-02-07 14:31 | XMS_ITS | Encounter Summary ---
Author Organization [facility] [employer] tem Address [facility]-[id number] [address] [place] [address] Care Team Providers Care Business Machines Teacher Name Role Phone Shahbaz Monk DO Primary Care Provider + [phone] Reason for Visit * Reason Comments Med Change Request Encounter Details Date Type Department Care Team ([facility] Contact Info) Description 02/05/2025 Refill [facility] - Family Medicine [address] [place] [address] Shahbaz Monk DO [address], [facility] [place] [address] Social History Tobacco Use Types Packs/Day Years Used Date Smoking Tobacco: Former Cigarettes 0.5 33.2 1 990 - 09/11/2022 Smokeless Tobacco: Never Alcohol Use Standard Drinks/Week Comments Not Currently 0 (1 standard drink = 0.6 oz pure alcohol) Occasional 6 pack once a month [facility] Utilities Answer Date Recorded In the past 12 months has [employer], gas, oil, or water [employer] threatened to shut off services in your [...] How often do you attend chur or cheondoism services? Never 03/07/2023 Do you [...] Answer Date Recorded Total Score 0 01/14/2025 [facility] of Occupat ional Health - [...] Medicine [address] [place] [address] Shahbaz Monk DO [address] [place] [address] documented as of this encounter Visit Diagnoses Not on filedocumented in this encounter Additional Health Concerns Assessment Noted Time PHQ-9 Depression Total Score: 0 01/15/20 25 4:24 PM EDT documented as of this encounter Care Teams Business Machines Teacher Relationship Specialty Start Date End Date Shahbaz Monk DO [address] [place] [address] PCP - General Family Medicine 02/11/22 documented as of this encounter
--- OUTSIDE RECORDS SUMMARY | 2025-02-07 14:31 | XMS_ITS | Encounter Summary ---
Author Organization [facility] [employer] Sys tem Address [facility] [place][id number] [address] [place] [address] Care Team Providers Care Marketing Production Manager Name Role Phone Shahbaz Monk Primary Care Provider + [phone] Encounter Details Date Type Department Care Team (Late st Contact Info) Description 08/22/2023 Orders Only [facility] - Family Medicine [address] [place] [address] External, Scanning Provider Social History Tobacco Use Types Packs/Day Years Used Date Smoking Tobacco: Former Cigarettes 0.5 33.2 1 990 - 09/11/2022 Smokeless Tobacco: Never Alcohol Use Standard Drinks/Week Comments Yes 0 (1 standard drink = 0.6 oz pur e alcohol) Occasional 6 pack once a month [facility] Utilities Answer Date Recorded In the [...] any clubs o r organizations such as mosque groups, unions, fraternal or athletic groups, or [...] Answer Date Recorded Total Score 0 08/04/2023 [facility] of Occupat ional Health - [...] Recorded Do you need help finding a [facility] career center and/or a training [...] - Family Medicine [address] [place] [address] Shahbaz Monk DO [address], [place] [address] documented as of this encounter Procedures Procedure [...] as of this encounter Care Teams Marketing Production Manager Relationship Specialty Start Date End Date Shahbaz Monk DO [address], [place] [address] PCP - General Family Medicine 02/11/22 documented as of this encounter
--- OUTSIDE RECORDS SUMMARY | 2025-02-07 14:31 | XMS_ITS | Encounter Summary ---
Author Organization [employer] s tem Address [id number] [address] [place] [address] Care Team Providers Care Rubber Calender Helper Name Role Phone Shahbaz Monk DO Primary Care Provider + [phone] Reason for Visit * Reason Comments Med Refill Encounter Details Date Type Department Care Team ([facility] Contact Info) Description 08/06/2022 Refill [facility] - Family Medicine [address] [place] [address] Shahbaz Monk DO [address] [place] [address] Essential (primary) hypertension Social History Tobacco Use [...] Upcoming Encounters Date Type Department Care Team ([facility] Contact Info) Description 05/21/2025 4:15 PM EST [facility] [address] [place] [address] Shahbaz Monk DO [address] [place] [address] documented as of this encounter Visit Diagnoses Diagnosis Essential (primary) hypertension Unspecified essential hypertension documented in this encounter Additional Health Concerns Assessment Noted Time PHQ-9 Depression Total Score: 2 05/03/20 22 3:45 PM EST documented as of this encounter Care Teams Rubber Calender Helper Relationship Specialty Start Date End Date Shahbaz Monk DO [address] [place] [address] PCP - General Family Medicine 02/11/22 documented as of this encounter
--- OUTSIDE RECORDS SUMMARY | 2025-02-07 14:31 | XMS_ITS | Clinical Summary ---
Author Organization [facility] Address [address] [place] [address] Care Team Providers Care Legal Billing Specialist Name Role Phone Unavailable Primary Care Provider [...]
--- OUTSIDE RECORDS SUMMARY | 2025-02-07 14:31 | XMS_ITS | Encounter Summary ---
Author Organization [facility] [employer] [facility] tem Address [facility][id number] [address] [place] [address] Care Team Providers Care Internet Sourcer Name Role Phone Shahbaz Monk DO Primary Care Provider + [phone] Encounter Details Date Type Department Care Team (Late st Contact Info) Description 08/09/2024 [facility]phone [facility] Medicine [address] [place] [address] Shahbaz Monk DO [address], [facility] [place] [address] Social History Tobacco Use Types Packs/Day Years Used Date Smoking Tobacco: Former Cigarettes 0.5 33.2 1 990 - 09/11/2022 Smokeless Tobacco: Never Alcohol Use Standard Drinks/Week Comments Not Currently 0 (1 standard drink = 0.6 oz pure alcohol) Occasional 6 pack once a month [facility] Utilities Answer Date Recorded In the past 12 months has [employer], or water [employer] threatened to shut off services in your [...] any clubs o r organizations such as episcopal groups, unions, fraternal or athletic groups, or [...] Answer Date Recorded Total Score 0 05/28/2024 [facility] of Occupat ional [facility] - Occupational Stress Questionnaire Answer Date [...] 3:35 PM EST NEEDS A REFERRAL TO [facility] PAIN [facility] documented in this encounter Plan of Treatment Upcoming Encounters Date Type Department Care Team (Late st Contact Info) Description 05/21/2025 4:15 PM EST Office Visit [facility] - Family Medicine [address] [place] [address] Shahbaz Monk DO [address] [facility] [place] [address] documented as of this encounter Visit Diagnoses Not on filedocumented in this encounter Additional Health Concerns Assessment Noted Time PHQ-9 Depression Total Score: 0 05/28/20 24 2:30 PM EST documented as of this encounter Care Teams Internet Sourcer Relationship Specialty Start Date End Date Shahbaz Monk DO [address] [facility] [place] [address] PCP - General Family Medicine 02/11/22 documented as of this encounter
--- OUTSIDE RECORDS SUMMARY | 2025-02-07 14:31 | XMS_ITS | Encounter Summary ---
Author [facility] Address [facility][id number] [address] [place] [address] Care Team Providers Care Power Chisel Operator Name Role Phone SandhyaShahbaz gillespie Primary Care Provider + [phone] Encounter Details Date Type Department Care Team (Late st Contact Info) Description 08/21/2024 Orders Only [facility] Internal [facility] - Family Medicine [address] [place] [address] Kath Irvin CMA Lumbar disc prolapse with compression radiculopathy Social History Tobacco Use Types Packs/Day Years Used Date Smoking Tobacco: Former Cigarettes 0.5 33.2 1 990 - 09/11/2022 Smokeless Tobacco: Never Alcohol Use Standard Drinks/Week Comments Not Currently 0 (1 standard drink = 0.6 oz pure alcohol) Occasional 6 pack once a month [facility] Utilities Answer Date Recorded In the past 12 months has [facility] electric, gas, oil, or water company [...] Medicine - Family Medicine [address] [place] [address] Shahbaz Monk DO [address] [facility] [place] [address] documented as of this encounter Procedures Procedure [...] documented as of this encounter Care Teams Power Chisel Operator Relationship Specialty Start Date End Date Shahbaz Monk DO [address], [place] [address] PCP - General Family Medicine 02/11/22 documented as of this encounter
--- OUTSIDE RECORDS SUMMARY | 2025-02-07 14:31 | XMS_ITS | Encounter Summary ---
Author Organization [employer] s tem Address [facility]-[id number] [address] [place] [address] Care Team Providers Care Principal Associate Name Role Phone Shahbaz Monk DO Primary Care Provider + [phone] Encounter Details Date Type Department Care Team (Late Contact Info) Description 02/25/2022 Orders Only [facility] Internal Medicine - Family Medicine [address] [place] [address] Shahbaz Monk DO [address], [facility] [place] [address] Social History Tobacco Use Types Packs/Day Years [...] Upcoming Encounters Date Type Department Care Team ([facility] Contact Info) Description 05/21/2025 4:15 PM EST Office Visit [facility] - Family Medicine [address] [place] [address] Shahbaz Monk DO [address] [facility] [place] [address] documented as of this encounter Visit Diagnoses Not on filedocumented in this encounter Care Teams Principal Associate Relationship Specialty Start Date End Date Shahbaz Monk DO [address] [facility] [place] [address] PCP - General Family Medicine 02/11/22 documented as of this encounter
--- OUTSIDE RECORDS SUMMARY | 2025-02-07 14:31 | XMS_ITS | Encounter Summary ---
Author Organization [employer] s tem Address [facility][id number] [address] [place] [address] Care Team Providers Care Senior Field Service Engineer Name Role Phone hSahbaz Monk DO Primary Care Provider [phone] Encounter Details Date Type Department Care Team ([facility] Contact Info) Description 03/02/2022 [facility] Medicine [address] [place] [address] External, Scanning Provider Social History Tobacco Use [...] Type Department Care Team ([facility] Contact Info) Description 05/21/2025 4:15 PM EST Office Visit [facility] Internal Medicine - Family Medicine [address] [place] [address] Shahbaz Monk DO [address], [place] [address] documented as of this encounter Procedures Procedure [...] BLOOD ORDERABLES Final Result Performing Organization Address City/State[facility] Co de Phone Number MANUALLY TRANSCRIBED RESULTS documented in this encounter Visit Diagnoses Not on filedocumented in this encounter Care Teams Senior Field Service Engineer Relationship Specialty Start Date End Date Shahbaz Monk DO [address] [place] [address] PCP - General Family Medicine 02/11/22 documented as of this encounter
--- OUTSIDE RECORDS SUMMARY | 2025-02-07 14:32 | XMS_ITS | Encounter Summary ---
Author Organization [facility] Sys tem Address [facility]-[id number] [address] [place] [address] Care Team Providers Care Gas Plant Technician Name Role Phone Shahbaz Monk Primary Care Provider + [phone] Encounter Details Date Type Department Care Team (Late st Contact Info) Description 12/07/2022 Orders Only [facility] Internal Medicine - Family Medicine [address] [place] [phone] Itzel White, BEAM BUILDER HELPER-MANAGEMENT DEPARTMENT CHAIR [address] [place] [address] Social History Tobacco Use Types Packs/Day Years [...] Medicine [address] [place] [address] Shahbaz Monk DO [address], [facility] [address] documented as of this encounter Procedures Procedure Name Priority Date/Time Associated Diagnosis Comments HM COLOGUARD Routine 08/28/2021 documented in this encounter Results * HM COLOGUARD (08/28/2021) Itzel White BEAM BUILDER HELPER-MANAGEMENT DEPARTMENT CHAIR HEALTH MAINTENANCE Final Result MANUALLY TRANSCRIBED RESULTS documented in this encounter Visit Diagnoses Not on filedocumented in this encounter Additional Health Concerns Assessment Noted Time PHQ-9 Depression Total Score: 0 12/04/19 23 11:17 AM EDT documented as of this encounter Care Teams Gas Plant Technician Relationship Specialty Start Date End Date Shahbaz Monk DO [address] [facility], [facility] [place] [address] PCP - General Family Medicine 02/11/22 documented as of this encounter
--- OUTSIDE RECORDS SUMMARY | 2025-02-07 14:32 | XMS_ITS | Encounter Summary ---
Author Organization [facility] tem Address [facility]-[id number] [address] [place] [address] Care Team Providers Care Quality Project Manager Name Role Phone Shahbaz Monk DO Primary Care Provider + [phone] Encounter Details Date Type Department Care Team (Late st Contact Info) Description 04/04/2024 Orders Only [facility] Internal [facility] - Family Medicine [address] [place] [address] Shahbaz Monk DO [address], [facility] [place] [address] Social History Tobacco Use Types Packs/Day Years Used Date Smoking Tobacco: Former Cigarettes 0.5 33.2 1 990 - 09/11/2022 Smokeless Tobacco: Never Alcohol Use Standard Drinks/Week Comments Not Currently 0 (1 standard drink = 0.6 oz pure alcohol) Occasional 6 pack once a month [facility] Utilities Answer Date Recorded In the past 12 months has [employer], [employer], or water [employer] threatened to shut off services in your [...] often do you attend chur ch or restorationism services? Never 03/07/2023 Do you belong to [...] Answer Date Recorded Total Score 0 04/03/2024 [facility] [place] of Occupat ional Health - Occupational Stress [...] Recorded Do you need help finding a [facility] career center and/or a training [...] - Family Medicine [address] [place] [address] Shahbaz Monk DO [address] [place] [address] documented as of this encounter Procedures Procedure Name Priority Date/Time Associated Diagnosis Comments HOME SLEEP STUDY Routine 10/26/2016 4:02 PM EDT documented in this encounter Visit Diagnoses Not on filedocumented in this encounter Additional Health Concerns Assessment Noted Time PHQ-9 Depression Total Score: 0 04/03/20 24 4:37 PM EDT documented as of this encounter Care Teams Quality Project Manager Relationship Specialty Start Date End Date Shahbaz Monk DO [address] [place] [address] PCP - General Family Medicine 02/11/22 documented as of this encounter
--- OUTSIDE RECORDS SUMMARY | 2025-02-07 14:32 | XMS_ITS | Encounter Summary ---
Author Organization [facility] Sys tem Address [facility]-[id number] [address] [place] [address] Care Team Providers Care Lsw Name Role Phone Shahbaz Monk DO Primary Care Provider + [phone] Encounter Details Date Type Department Care Team (Late st Contact Info) Description 02/28/2023 Orders Only [facility] - Family Medicine [address] [place] [address] Shahbaz Monk DO [address], [facility] [place] [address] Social History Tobacco Use Types Packs/Day Years [...] - Family Medicine [address] [place] [address] Shahbaz Monk DO [address] [facility] [address] documented as of this encounter Visit Diagnoses Not on filedocumented in this encounter Additional Health Concerns Assessment Noted Time PHQ-9 Depression Total Score: 0 12/04/19 23 11:17 AM EDT documented as of this encounter Care Teams Lsw Relationship Specialty Start Date End Date Shahbaz Monk DO [address] [facility] [address] PCP - General Family Medicine 02/11/22 documented as of this encounter
--- OUTSIDE RECORDS SUMMARY | 2025-02-07 14:32 | XMS_ITS | Encounter Summary ---
Author Organization [facility] [employer] Sys tem Address [facility] [place]-[id number] [address] [place] [address] Care Team Providers Care Glassblower Name Role Phone NatyShahbaz quintero Molina PERKINS Primary Care Provider + [phone] Encounter Details Date Type Department Care Team (Late st Contact Info) Description 02/24/2024 Orders Only [facility] - Family Medicine [address] [place] [address] Kath Irvin CMA Right ureteral stone Social History Tobacco Use Types Packs/Day Years Used Date Smoking Tobacco: Former Cigarettes 0.5 33.2 1 990 - 09/11/2022 Smokeless Tobacco: Never Alcohol Use Standard Drinks/Week Comments Not Currently 0 (1 standard drink = 0.6 oz pure alcohol) Occasional 6 pack once a month [facility] Utilities Answer Date Recorded In the [...] Answer Date Recorded Total Score 0 01/02/2024 [facility] [place] of Occupat ional Health - Occupational Stress [...] you need help finding a [facility] career center and/or a [...] - Family Medicine [address] [place] [address] Shahbaz Monk DO [address], [place] [address] documented as of this encounter Procedures Procedure Name Priority Date/Time Associated Diagnosis Comments AMB REFERRAL TO UROLOGY Routine 02/24/2024 8:42 AM EDT Right ureteral stone URINE CULTURE Routine 02/23/2024 2:01 PM EDT URINALYSIS Routine 02/23/2024 1:40 PM EDT documented in this encounter Results * Ambulatory referral to Urology (02/24/2024 8:42 AM EDT) us Itzel White APRN-FISH HATCHERY INSPECTOR OUTPATIENT REFERRAL [place] CRUZ Final Result Performing Organization Address [facility] Co de Phone Number MANUALLY TRANSCRIBED RESULTS * Urine Culture (02/23/2024 2:01 PM EDT) Urine us Not In System Ref Prov MICROBIOLOGY - GENERAL OR DERABLES Final Result Performing Organization Address City/[facility] Co de Phone Number MANUALLY TRANSCRIBED RESULTS [...] documented as of this encounter Care Teams Glassblower Relationship Specialty Start Date End Date Shahbaz Monk DO [address], [place] [address] PCP - General Family Medicine 02/11/22 documented as of this encounter
--- OUTSIDE RECORDS SUMMARY | 2025-02-07 14:32 | XMS_ITS | Encounter Summary ---
Author Organization [facility] Sys tem Address [facility][id number] [address] [place] [address] Care Team Providers Care Cordwood Cutter Helper Name Role Phone Shahbaz Monk DO Primary Care Provider [phone] Encounter Details Date Type Department Care Team ([facility] st Contact Info) Description 05/17/2022 Telephone [facility] Internal Medicine - Family Medicine [address] [place] [address] Roslyn Day MA Social History Tobacco Use [...] Medicine - Family Medicine [address] [place] [address] Shahbaz Monk DO [address] [place] [address] documented as of this encounter Visit Diagnoses Not on filedocumented in this encounter Additional Health Concerns Assessment Noted Time PHQ-9 Depression Total Score: 2 05/03/20 22 3:45 PM EST documented as of this encounter Care Teams Cordwood Cutter Helper Relationship Specialty Start Date End Date Shahbaz Monk DO [address] [place] [address] PCP - General Family Medicine 02/11/22 documented as of this encounter
--- OUTSIDE RECORDS SUMMARY | 2025-02-07 14:32 | XMS_ITS | Encounter Summary ---
Author Organization [facility] [employer] Sys tem Address [facility] [id number] [address] [place] [address] Care Team Providers Care Feller Hand Name Role Phone Shahbaz Monk DO Primary Care Provider + [phone] Reason for Visit * Reason Comments Med Refill Encounter Details Date Type Department Care Team ([facility] Contact Info) Description 10/27/2022 Refill [facility] - Family Medicine [address] [place] [address] Shahbaz Monk DO [address], [facility] [place] [address] Essential (primary) hypertension; Spondylolisthesis, lumbar region Social [...] Medicine - Family Medicine [address] [place] [address] Shahbaz Monk DO [address] [facility] [address] documented as of this encounter Visit Diagnoses Diagnosis Essential (primary) hypertension Unspecified essential hypertension Spondylolisthesis, lumbar region documented in this encounter Additional Health Concerns Assessment Noted Time PHQ-9 Depression Total Score: 0 08/17/19 23 4:45 PM EST documented as of this encounter Care Teams Feller Hand Relationship Specialty Start Date End Date Shahbaz Monk DO [address] [facility] [address] PCP - General Family Medicine 02/11/22 documented as of this encounter
--- OUTSIDE RECORDS SUMMARY | 2025-02-07 14:32 | XMS_ITS | Encounter Summary ---
Author Organization [facility] tem Address [facility] [place][id number] [address] [place] [address] Care Team Providers Care Systems Accountant Name Role Phone Shahbaz Monk DO Primary Care Provider + [phone] Reason for Visit * Reason Onset Date Comments Med Refill 09/12/2023 Encounter Details Date Type Department Care Team (Late st Contact Info) Description 09/12/2023 Telephone [facility] Internal Medicine - Family Medicine [address] [place] [address] Shahbaz Monk DO [address], [facility] [place] [address] Med Refill Social History Tobacco Use Types Packs/Day Years Used Date Smoking Tobacco: Former Cigarettes 0.5 33.2 1 990 - 09/11/2022 Smokeless Tobacco: Never Alcohol Use Standard Drinks/Week Comments Not Currently 0 (1 standard drink = 0.6 oz pure alcohol) Occasional 6 pack once a month [facility] Utilities Answer Date Recorded In the past 12 months has [employer], gas, oil, or water [employer] threatened to shut off services in your [...] often do you attend [facility] or buddhism services? Never 03/07/2023 Do you [...] Answer Date Recorded Total Score 0 08/30/2023 [facility] of Occupat [...] Recorded Do you need help finding a [facility] career center and/or a training [...] called and needs his semaglutide sent to [facility], he also wanted to know if [...] - Family Medicine [address] [place] [address] Shahbaz Monk DO [address] [place] [address] documented as of this encounter Visit Diagnoses Not on filedocumented in this encounter Additional Health Concerns Assessment Noted Time PHQ-9 Depression Total Score: 0 08/30/19 24 3:49 PM EDT documented as of this encounter Care Teams Systems Accountant Relationship Specialty Start Date End Date Shahbaz Monk DO [address], [place] [address] PCP - General Family Medicine 02/11/22 documented as of this encounter
--- OUTSIDE RECORDS SUMMARY | 2025-02-07 14:32 | XMS_ITS | Encounter Summary ---
Author [facility] Address [facility][id number] [address] [place] [address] Care Team Providers Care Sales Vendor Name Role Phone SandhyaShahbaz gillespie Primary Care Provider + [phone] Encounter Details Date Type Department Care Team (Late st Contact Info) Description 02/05/2025 Refill [facility] - Family Medicine [address] [place] [address] Kym Parks CMA Social History Tobacco Use Types Packs/Day Years Used Date Smoking Tobacco: Former Cigarettes 0.5 33.2 1 990 - 09/11/2022 Smokeless Tobacco: Never Alcohol Use Standard Drinks/Week Comments Not Currently 0 (1 standard drink = 0.6 oz pure alcohol) Occasional 6 pack once a month [facility] [employer] Answer Date Recorded In the past 12 [...] often do you attend chur ch or baptist services? Never 03/07/2023 Do you belong to [...] Answer Date Recorded Total Score 0 01/14/2025 [facility] of Occupat ional Health - Occupational Stress [...] Recorded Do you need help finding a [facility] career center and/or a training program? No [...] - Family Medicine [address] [place] [address] Shahbaz Monk DO [address], [facility] [address] documented as of this encounter Visit Diagnoses Not on filedocumented in this encounter Additional Health Concerns Assessment Noted Time PHQ-9 Depression Total Score: 0 01/15/20 25 4:24 PM EDT documented as of this encounter Care Teams Sales Vendor Relationship Specialty Start Date End Date Shahbaz Monk DO [address] [place] [address] PCP - General Family Medicine 02/11/22 documented as of this encounter
--- OUTSIDE RECORDS SUMMARY | 2025-02-07 14:32 | XMS_ITS | Encounter Summary ---
Author Organization [facility] [employer] Sys tem Address [facility]-[id number] [address] [place] [address] Care Team Providers Care Pizza Maker Name Role Phone Shahbaz Monk Primary Care Provider + [phone] Encounter Details Date Type Department Care Team (Late st Contact Info) Description 01/10/2024 Orders Only [facility] Internal [facility] - Family Medicine [address] [place] [address] Ref Prov, [place] [address] Social History Tobacco Use Types Packs/Day Years Used Date Smoking Tobacco: Former Cigarettes 0.5 33.2 1 990 - 09/11/2022 Smokeless Tobacco: Never Alcohol Use Standard Drinks/Week Comments Not Currently 0 (1 standard drink = 0.6 oz pure alcohol) Occasional 6 pack once a month [facility] Utilities Answer Date Recorded In the past 12 months has [facility] electric, gas, oil, or water [...] any clubs o r organizations such as anabaptism groups, unions, fraternal or athletic groups, or [...] Answer Date Recorded Total Score 0 01/02/2024 [facility] of Occupat ional [...] - Family Medicine [address] [place] [address] Shahbaz Monk DO [address], [facility] [place] [address] documented as of this encounter Procedures Procedure [...] as of this encounter Care Teams Pizza Maker Relationship Specialty Start Date End Date Shahbaz Monk DO [address] [place] [address] PCP - General Family Medicine 02/11/22 documented as of this encounter
--- OUTSIDE RECORDS SUMMARY | 2025-02-07 14:32 | XMS_ITS | Clinical Summary ---
Author Organization [employer] tem Address [facility][id number] [address] [place] [address] Care Team Providers Care Territory Account Representative Name Role Phone Natyleon Shahbaz Auguste DO Primary Care Provider + [phone] Allergies No known active allergies Medications omeprazole [...] Medicine - Family Medicine [address] [place] [address] Shahbaz Monk DO 02/05/2025 Refill [facility] - Family Medicine [address] [place] [address] Kym Parks CMA 01/14/2025 4:30 PM EDT Office Visit [facility] - Family Medicine [address] [place] [address] Shahbaz Monk DO Class 2 severe obesity due to excess calories with serious comorbidity and body mass index (BMI) of 36.0 to 36.9 in adult ([facility]) (Primary Dx); Lumbar disc prolapse with compression radiculopathy; Sleep apnea, unspecified type 01/12/2025 Travel 12/24/2024 4:55 PM EDT Office Visit [facility] - Family Medicine [address] [place] [address] Shahbaz Monk, Palpitations (Primary Dx); PVC (premature ventricular contraction); Sinus tachycardia 12/24/2024 Telephone [facility] - Family Medicine [address] [place] [address] Kym Parks [facility] 12/24/2024 Telephone [facility] - Family Medicine [address] [place] [address] Kaila Beck [facility] from Last 3 Months Immunizations Immunization Administration [...] alcohol) Occasional 6 pack once a month [employer] Utilities Answer Date Recorded In the past 12 months has th e electric, gas, oil, or water [employer] threatened to shut off services in your [...] often do you attend chur ch or sabianism services? Never 03/07/2023 Do you [...] Answer Date Recorded Total Score 0 01/14/2025 [facility] of Occupat ional Health [...] Recorded Do you need help finding a [facility] career center and/or a training program? [...] Medicine - Family Medicine [address] [place] [address] Shahbaz Monk, DO [address], [place] [address] Health Maintenance Due Date Last Done Comments [...] ECG ORDERABLES Final Result Performing Organization Address City/[facility]/ZIP Co de Phone Number MANUALLY TRANSCRIBED RESULTS * COLOGUARD (08/28/2021) us Itzel White BALL HOLDER-RETREADER HEALTH MAINTENANCE Final Result Performing Organization Address City/[facility] Co de Phone Number MANUALLY TRANSCRIBED RESULTS from Last 3 Months or Most Recently Relevant to Health Maintenance Insurance [employer] Care Teams Territory Account Representative Relationship Specialty Start Date End Date Shahbaz Monk DO [address] [facility], [place] [address] PCP - General Family Medicine 02/11/22
--- OUTSIDE RECORDS SUMMARY | 2025-02-07 14:32 | XMS_ITS | Encounter Summary ---
Author Organization [facility] [employer] Sys tem Address [facility][id number] [address] [place] [address] Care Team Providers Care Director [employer] Name Role Phone Shahbaz Monk Primary Care Provider + [phone] Encounter Details Date Type Department Care Team (Late st Contact Info) Description 03/06/2024 Orders Only [facility] Internal [facility] - Family Medicine [address] [place] [address] Ref Prov, [place] [address] Social History Tobacco Use Types Packs/Day Years Used Date Smoking Tobacco: Former Cigarettes 0.5 33.2 1 990 - 09/11/2022 Smokeless Tobacco: Never Alcohol Use Standard Drinks/Week Comments Not Currently 0 (1 standard drink = 0.6 oz pure alcohol) Occasional 6 pack once a month [facility] Utilities Answer Date Recorded In the past [address] [facility] electric, gas, oil, or water company [...] Answer Date Recorded Total Score 0 01/02/2024 [facility] of Occupat ional Health - Occupational [...] - Family Medicine [address] [place] [address] Shahbaz Monk DO [address] [facility], [facility] [place] [address] documented as of this encounter Procedures Procedure [...] as of this encounter Care Teams Director [employer]eron[employer] Commission Relationship Specialty Start Date End Date Shahbaz Monk DO [address] [facility] [place] [address] PCP - General Family Medicine 02/11/22 documented as of this encounter
--- OUTSIDE RECORDS SUMMARY | 2025-02-07 14:32 | XMS_ITS | Clinical Summary ---
Author Organization [facility] Address [address] [place] [address] Phone Care Team Providers Care Shoe Treer Name Role Phone Yandel Garcia DO Primary Care Provider Social History Tobacco Use Types Packs/Day Years Used Date Smoking Tobacco: Never Assessed Sex and Gender Information Value Date Recorded Sex Assigned at Not on file Legal Sex Male 10:39 AM EST Gender Identity Not on file Sexual Orientation Not on file Plan of Treatment Not on file Care Teams Shoe Treer Relationship Specialty Start Date End Date Yandel Garcia DO [address] [place] [address] PCP - General 10/24/17
--- OUTSIDE RECORDS SUMMARY | 2025-02-07 14:32 | XMS_ITS | Encounter Summary ---
Author Organization [facility] [employer] Sys tem Address [facility]-[id number] [address] [place] [address] Care Team Providers Care Pattern Repair Person Name Role Phone Shahbaz Monk Primary Care Provider + [phone] Encounter Details Date Type Department Care Team (Late st Contact Info) Description 12/03/2022 Documentation [facility] - Family Medicine [address] [place] [address] Kaila Beck CMA Social History Tobacco Use [...] Medicine [address] [place] [address] Shahbaz Monk DO [address] [facility] [place] [address] documented as of this encounter Visit Diagnoses Not on filedocumented in this encounter Additional Health Concerns Assessment Noted Time PHQ-9 Depression Total Score: 0 12/04/19 23 11:17 AM EDT documented as of this encounter Care Teams Pattern Repair Person Relationship Specialty Start Date End Date Shahbaz Monk DO [address] [facility] [place] [address] PCP - General Family Medicine 02/11/22 documented as of this encounter
--- OUTSIDE RECORDS SUMMARY | 2025-02-07 14:32 | XMS_ITS | Encounter Summary ---
Author Organization [facility] [employer] Sys tem Address [facility] [place][id number] [address] [place] [address] Care Team Providers Care Medical Director Name Role Phone Shahbaz Monk Primary Care Provider + [phone] Encounter Details Date Type Department Care Team (Late st Contact Info) Description 02/27/2024 Orders Only [facility] - Family Medicine [address] [place] [address] Ref Prov, [place] [address] Social History Tobacco Use Types Packs/Day Years Used Date Smoking Tobacco: Former Cigarettes 0.5 33.2 1 990 - 09/11/2022 Smokeless Tobacco: Never Alcohol Use Standard Drinks/Week Comments Not Currently 0 (1 standard drink = 0.6 oz pure alcohol) Occasional 6 pack once a month [facility] Utilities Answer Date Recorded In the past 12 months has [facility] electric, gas, oil, or water [...] often do you attend chur ch or sikhism services? Never 03/07/2023 Do you belong to [...] Answer Date Recorded Total Score 0 01/02/2024 [facility] of Occupat ional Health - Occupational [...] Recorded Do you need help finding a [facility] career center and/or a training program? [...] Medicine - Family Medicine [address] [place] [address] Shahbaz Monk DO [address], [facility] [place] [address] documented as of this encounter Procedures Procedure [...] as of this encounter Care Teams Medical Director Relationship Specialty Start Date End Date Shahbaz Monk DO [address] [facility] [place] [address] PCP - General Family Medicine 02/11/22 documented as of this encounter
--- NOTE | 2025-02-07 14:34 | XR_ITS ---
[facility] [place] [id number] Patient Name: STEFFANY JOVEL MRN: [id number] date: 1975 Sex: M Assigned Patient Location: [facility] Current Patient Location: [facility] Accession/Order Number: [id number] Exam Date: 02/07/2025 14:45 Report Date: 02/07/2025 15:58 At the request of: BRANDI ALVARADO NP Procedure: XR knee LT 4V XR knee LT 4V 02/07/2025 2:50 PM SIGNS AND SYMPTOMS: Left Knee Pain PROTOCOL: Frontal, lateral, and oblique radiographs of the left knee COMPARISON: None FINDINGS: The weightbearing and patellofemoral joint spaces are preserved. There is no fracture or dislocation. No joint effusion. No soft tissue swelling. XR/XR knee LT 4V IMPRESSION: No acute bony injury or significant degenerative change. Impression dictated by: Lizandro Ghosh M.D. 02/07/2025 3:58 PM Dictation Location: [place] [address] Electronically authenticated by: [id number] Y Date: 02/07/2025 15:58
== END 2025-02-07 14:28 | disposition home or self-care (01) ==
PROVIDERS: PCP Family Medicine; Visit Provider Nurse Practitioner
DX: M25.562 Pain in left knee (principal); M48.062 Spinal stenosis, lumbar region with neurogenic claudication; M47.816 Spondylosis without myelopathy or radiculopathy, lumbar region; Z79.891 Long term (current) use of opiate analgesic
CPT/HCPCS: 73564; G0463